=== PATIENT | male | born 1945 | race Caucasian/White ===

== ENCOUNTER 2018-05-23 22:03 | Inpatient (IN) | payer MEDICARE, OTHER, SELFPAY ==
[2018-05-23] VITALS (7 sets, daily range): BP systolic 145–182; BP diastolic 78–91; PULSE 70–87; RESP 16–22; TEMP 36.6; O2SAT 95–98; BMI 31.0
--- NOTE | 2018-05-23 22:08 | CT_ITS ---
STUDY: CTA OF THE BRAIN REASON FOR EXAM: Male, 73 years old. CVA. RADIATION DOSAGE (If Supplied By Facility): CTDIvol = ( ) mGy, DLP = ( ) mGycm TECHNIQUE: CT angiography was performed with a multi-detector CT scanner. Data acquisition was obtained from the skull base through the vertex following intravenous administration of ml of . MIP images were reconstructed from the axial data set. Post-processing of the angiographic images was performed, with multiplanar reformation and 3D reconstruction. Individualized dose optimization techniques were used for this CT. COMPARISON: None. FINDINGS: Normal bilateral petrous carotid arteries. Normal right cavernous carotid artery with a normal supraclinoid bifurcation. Normal left cavernous carotid artery with a normal supraclinoid bifurcation. Normal right A1 segments of the anterior cerebral artery. Normal left A1 segments of the anterior cerebral artery. Normal intact anterior communicating artery (ACOM). Normal bilateral A2 segments of the anterior cerebral arteries. Normal right M1 and M2 segments of the middle cerebral arteries, with a normal M1 bifurcation. Normal left M1 and M2 segments of the middle cerebral arteries, with a normal M1 bifurcation. There is a persistent origin of the right posterior cerebral artery with absence of the P1 segment of the right posterior cerebral artery. Hypoplastic or aplastic left posterior communicating artery. There is atherosclerotic calcification of the intracranial vertebral arteries. There is mild atherosclerotic narrowing bilaterally. Normal basilar artery with a normal basilar bifurcation. The visualized bilateral superior cerebellar (SCA) arteries are normal. Absent right P1 segment consistent with origin of the right [employer]. Normal bilateral P2 and visualized P3 segments of the posterior cerebral arteries. There is no demonstrated aneurysm of the [place]. There is opacification of the right maxillary sinus. CT/CTA Head W/WO Contrast IMPRESSION: Normal [place] of [place] without a demonstrated aneurysm or significant stenosis. Right maxillary sinusitis, uncertain chronicity. Electronically Signed: Kelsey Gutierrez MD at 23:26 EST Tel , Service support ,
--- NOTE | 2018-05-23 22:08 | CT_ITS ---
STUDY: CTA NECK WITH CONTRAST REASON FOR EXAM: Male, 73 years old. CVA. RADIATION DOSAGE (If Supplied By Facility): CTDIvol = ( 19.43 ) mGy, DLP = ( 763.31 ) mGycm TECHNIQUE: CT angiography with multi-detector data acquisition was performed from the aortic arch to the skull base following intravenous administration of 100 ml of Isovue 370 contrast. MIP images were reconstructed from the axial data set. Post-processing of the angiographic images was performed, with multiplanar reformation and 3D reconstruction. Individualized dose optimization techniques were used for this CT. COMPARISON: None. FINDINGS: AORTIC ARCH: Normal visualized aortic arch. Normal origins of the brachiocephalic, left common carotid, and left subclavian arteries. RIGHT CAROTID ARTERIES: Normal right common carotid artery (CCA). Normal right common carotid bulb. There is mild atherosclerotic plaque formation of the origin of the right internal carotid artery with no stenosis. Normal visualized cervical portion of the right internal carotid artery. Normal origin of the right external carotid artery (ECA). LEFT CAROTID ARTERIES: Normal left common carotid artery (CCA). Normal left common carotid bulb. Normal origin of the left internal carotid (ICA) artery without a hemodynamically significant stenosis. Normal visualized cervical portion of the left internal carotid artery. Normal origin of the left external carotid artery (ECA). VERTEBRAL ARTERIES: Normal bilateral vertebral arteries. Moderate degenerative changes of the cervical spine are noted. There is complete opacification of the right maxillary sinus. CT/CTA Neck W/WO Contrast IMPRESSION: Normal bilateral cervical carotid and vertebral arteries. Right maxillary sinusitis. Electronically Signed: Kelsey Gutierrez MD at 22:41 EST Tel , Service support ,
--- NOTE | 2018-05-23 22:09 | EKG12_ITS ---
Test Reason : WEAKNESS Blood Pressure : / mmHG Vent. Rate : 075 BPM Atrial Rate : 075 BPM P-R Int : 196 ms QRS Dur : 082 ms QT Int : 374 ms P-R-T Axes : -02 -27 039 degrees QTc Int : 417 ms Normal sinus rhythm Minimal voltage criteria for LVH, may be normal variant Septal infarct , age undetermined Abnormal ECG Confirmed by BINDU RICE, SAMIA ([id number]), online editor MODESTO MARQUES ([id number]) on 05/25/2018 8:43:44 AM Referred By: Sylwia Up Confirmed By:SAMIA RUANO MD
--- NOTE | 2018-05-23 22:09 | RAD_ITS ---
STUDY: X-RAY CHEST REASON FOR EXAM: Male, 73 years old. Weakness, SOB. TECHNIQUE: Portable chest. COMPARISON: None. FINDINGS: The lungs are clear and expanded. There is no demonstrated pleural abnormality. Normal size heart. Normal mediastinum and ibeth. Normal visualized pulmonary arteries. Normal visualized aortic arch and descending thoracic aorta. Normal visualized thoracic spine. Normal visualized ribs, clavicles, and shoulders. There is no demonstrated abnormality of the visualized soft tissue structures of the upper abdomen. RAD/Chest 1 View IMPRESSION: Normal x-ray examination of the chest. Electronically Signed: Kelsey Gutierrez MD at 22:58 EST Tel , Service support ,
--- NOTE | 2018-05-23 22:09 | CT_ITS ---
STUDY: CT BRAIN WITHOUT CONTRAST REASON FOR EXAM: Male, 73 years old. Stroke alert. RADIATION DOSAGE (If Supplied By Facility): CTDIvol = ( 44.99 ) mGy, DLP = ( 812.98 ) mGycm TECHNIQUE: Transaxial CT imaging of the brain was performed without administration of intravenous contrast material. Individualized dose optimization techniques were used for this CT. COMPARISON: None. FINDINGS: Normal soft tissue structures. Normal calvarium. There is moderate cerebral atrophy with widening of the extra-axial spaces and ventricular dilatation. There are areas of decreased attenuation within the white matter tracts of the supratentorial brain, consistent with microvascular disease changes. Normal basal ganglia and thalami. Normal brainstem. Normal cerebellum. There is no intracranial hemorrhage. There are no findings of an acute ischemic infarction. The right maxillary sinus is opacified. Remaining paranasal and mastoid sinuses are clear. CT/Brain/Head without Contrast IMPRESSION: 1. No acute process. 2. Microvascular ischemia. Atrophy. 3. Right maxillary sinusitis. Dr. Gutierrez discussed the findings with Dr. Chaney at 10:47 PM. N.B. : The above information has been verbally conveyed by Kelsey Gutierrez MD to Ruslan Chaney MD, MD, on 05/23/2018 22:47:33 (ET). Electronically Signed: Kelsey Gutierrez MD at 22:48 EST Tel , Service support ,
[2018-05-23 22:15] LABS: Bedside Glucose 285 mg/dL (70-110)
[2018-05-23] MEDS: 0.9% Normal Saline 1,000 ML 100 ML IV (22:20)
--- NOTE | 2018-05-23 22:40 | ED.RN ---
I CALLED [facility] EXT. 2007. THIS WET PROCESS TECHNICIAN ASKED FOR PERMISSION TO ADMIT THIS PT BECAUSE HE HAS [facility]. I TALKED TO JUNIOR AND SHE STATED THAT [facility] NOT [facility] ANY AVAILABLE BEDS SO WE HAVE HER PERMISSION TO ADMIT THIS PT TO [facility].
--- NOTE | 2018-05-23 22:57 | ED.DCSUM_ITS ---
- ER Visit Summary Date of Service: 05/23/18 Chief Complaint: [Left-sided facial droop] History of Present Illness: The patient is a 73 M [presents to the emergency department with complaint of left-sided facial droop that was noticed by family members about 25 minutes prior to arrival in the emergency department. Patient denies any extremity weakness. He denies any paresthesias. He denies any difficulty with speech. He denies any visual changes. Patient states that a couple days ago started having some drainage from his left eye and some blurred vision intermittently. He denies otherwise recent illness. Patient does have a history of diabetes. No prior history of stroke or cardiac history. Patient denies any headache. He denies any falls or head injuries.] Physical Examination: [HEENT-PERRLA, EOMI. Cranial nerves II through XII grossly intact. TMs clear. Mucous membranes moist. No adenopathy. Cardiovascular-regular rate and rhythm without murmur or ectopy Lungs-clear to auscultation, chest wall stable without crepitus or subcu emphysema Abdomen-normoactive bowel sounds, soft, nontender, no rebound or rigidity, no peritoneal signs. Neuro exam-patient does have a left-sided facial droop. Normal strength in the upper and lower extremities noted. Finger to nose and heel luna testing within normal limits. No pronator drift. No visual changes. NIH stroke scale was a 2. No sensory changes. Extremities-intact ?4, normal range of motion, normal pulses, atraumatic] Test Results: [CT scan of the brain without contrast showed chronic white matter changes. CTA of the neck was unremarkable. CBC with differential was unrema rkable. Chemistries unremarkable. Troponin was less than 0.015. CTA of the brain was unremarkable.] Emergency Department Course and Treatment: [Patient case was discussed with neurologist on-call and at this point he does not meet thrombolytic criteria. Will admit for further workup and evaluation of possible stroke. Also in the differential would be a Cruz's palsy potentially. I discussed case with patient's family member who eventually arrived in the emergency department and now she cannot be certain when the symptoms started but she believes it was sometime after 1800 hrs.] Treatment Plan: [Admit] Disposition: [Admit] Impression: [CVA Hyperglycemia] This note was generated with [employer]ation software. It may contain incorrect words, spelling, and punctuation that were not noted in review of the chart prior to signing ED Disposition - Plan for ED Patient: Chief Complaint: Neuro S/Sx [facility] [Primary Care Provider] -
[2018-05-23 23:00] LABS: Absolute Lymphocyte Count 2.48 X10^3/ul (0.83-4.51); Absolute Neutrophil Count 6.4 X10^3/uL (2.0-7.7); Basophil# 0.04 X10^3/uL; Basophil% 0.4 % (0-1); Eosinophil# 0.29 X10^3/uL; Eosinophils% 2.9 % (0-5); Hematocrit 40.5 % (40-54); Hemoglobin 13.3 g/dl (13.0-16.5); Lymphocyte # 2.48 X10^3/ul (4.0); Lymphocyte % 24.8 % (19-41); Mean Corp Hgb Conc 32.8 g/gl (32-36); Mean Corpuscular Hgb 28.7 pg (27.0-32.0); Mean Corpuscular Volume 87.5 fL (80-94); Mean Platelet Vol. 9.9 fl (6.2-12.0); Monocyte# 0.78 X10^3/uL; Monocyte% 7.8 % (0-10); Neutrophil # 6.39 X10^3/uL (2.7-7.7); Neutrophil % 63.8 % (47-70); POSITIVE COUNT NO; POSITIVE DIFFERENTIAL NO; POSITIVE MORPHOLOGY NO; Platelet Count 177 K/mm3 (150-450); RBC Distribution Width CV 13.1 % (11.6-14.6); RBC Distribution Width SD 41.6 fl (35.1-43.9); Red Blood Count 4.63 M/mm3 (4.6-6.2)
[2018-05-23 23:07] LABS: International Normalized Ratio 1.1; Partial Thromboplast Time 25.4 Seconds (24.1-36.2)
[2018-05-23 23:18] LABS: Anion Gap 7 (5-15); BUN 17 mg/dL (7-18); BUN/Creat Ratio 16.7 RATIO (10-20); Calcium,Total 8.3 mg/dL (8.5-10.1); Chloride 104 mmol/L (98-107); Creatinine, Serum 1.02 mg/dL (0.70-1.30); EST Glomerular Filtration Rate 77 mL/min (>60); Est Glom Filt Rate - Afr Amer 93 mL/min (>60); Estimated Creatinine Clearance 66.43 ml/min; Glucose 232 mg/dL (74-106); Potassium 3.9 mmol/L (3.5-5.1); Sodium Level 136 mmol/L (136-145)
--- NOTE | 2018-05-23 23:31 | PCM.HP.STD ---
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 Diabetes mellitus complication status: with unspecified complications Qualified Code(s): E11.8 - Type 2 diabetes mellitus with unspecified complications; 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 She notes she had performed his dressing around 6:30-7 pm and upon looking up did not noted any facial droop at that time thus the onset came after the dressing changes she notes. She did state that he did complaint of mild L eye irritation with some tearing starting ~ 2 days prior but there was no accompanying discharge or scleral redness. In the ED work-up included T 97.8, heart rate 72, BP initially 182/91, respiratory rate 16, 98% on room air-->BP 145/78, unremarkable CBC, unremarkable coags, unremarkable BMP aside glucose 232, troponin 0 0.019, chest x-ray unremarkable, CT brain with no acute process with microvascular ischemia, atrophy and right maxillary sinusitis of uncertain chronicity, CTA head within normal [place] without a demonstrated aneurysm or significant stenosis with right maxillary sinusitis of uncertain chronicity, CTA neck with normal bilateral cervical carotid and vertebral arteries with right maxillary sinusitis of uncertain chronicity. Past Medical History Past Medical History (Chronic Problems): Chronic Problems TRICIA (obstructive sleep apnea) (Chronic) Wound of foot (Chronic) Hyperlipidemia (Chronic) Diabetes mellitus, type 2 (Chronic) Benign essential hypertension (Chronic) Allergies No Known Allergies Allergy (Verified 05/23/18 23:01) Home Medications: Ambulatory Orders Medication Instructions Recorded Doxycycline [Vibramycin] 100 mg PO BID 05/23/18 Glipizide [Glipizide ER] 5 mg PO BID 05/23/18 Insulin Aspart [Novolog Flexpen 8 units SC TIDCM 05/23/18 ([facility])] Insulin NPH Human [Humulin N ([facility])] 18 units SC BID 05/23/18 Insulin Regular, Human [Novolin R] See Protocol IJ TIDCM 05/23/18 Lisinopril [Zestril] 5 mg PO DAILY 05/23/18 Metformin HCl 500 mg PO BID 05/23/18 Surgical History: - - Right foot surgery x2, initially TMA in 2004 and recent follow-up surgical intervention. Psychiatric History: Anxiety, Depression Lives: With Family - Patient is currently residing with his daughter following recent surgical intervention for the last several months per OR recommendation. Smoking Status: Never smoker Tobacco Use: Non-smoker Alcohol: None Drugs: None - *Family History Maternal History Items: Diabetes Paternal History Items: COPD Review of Systems Constitutional: Reports: Malaise, Weakness, Fatigue. Denies: Chills, Fever, Weight Change Eyes: Reports: - - L eye discomfort, irritation. HEENT: Denies: Head Aches, Sinus Congestion, Sinus Drainage Cardiovascular: Denies: Chest Pain, Palpitations Respiratory: Denies: Cough, Shortness of breath at rest, Sputum production Gastrointestinal: Denies: Abdominal Pain, Nausea, Vomiting Genitourinary: Denies: Dysuria Musculoskeletal: Denies: Joint Pain, Joint Tenderness Skin: Reports: Skin Changes, Wounds. Denies: Rash Neurological: Reports: Slurred speech, Focal weakness. Denies: Numbness, Tingling Psychiatric: Reports: Anxiety, Depression. Denies: Homicidal Ideations, Suicidal Ideations Hematologic/ Lymphatic: Denies: Easy Bruising, Easy Bleeding VTE Information - Inpt Only VTE Present on Admission: No VTE Mechan Device Prophylaxis: SCD's VTE Pharm Prophylaxis ordered?: Yes Patient Problems: Active and Suspected Problems CVA (cerebral vascular accident) (Acute) Subjective: Seated upright in the ED bed, no acute distress, daughter present and notes that left facial droop is similar to the initial onset appearance. Objective: Physical Examination: General: awake, alert, oriented x 3 and cooperative, seated upright in the ED bed in no apparent distress. Skin: normal color, turgor, no icterus, cyanosis except noted right foot chronic wound at the TMA region on the right lateral side with decent granulation tissue, no erythema, no foul odor. HEENT: AT/NC, EOMI, PERRLA, mildly dry MM, no carotid bruits or JVD noted, left-sided facial droop, inclusive of forehead. Lungs: CTA bilaterally, moderate effort, mild decrease BL bases, no rales, ronchi or wheezing. Heart: Regular rate and rhythm; no gallop, rub audible. Abdomen: soft, obese, NTTP, ND, normal BS, no HSM. Extremities: no cyanosis, clubbing, or edema. Neurological: patient awake, alert, oriented x 3; cognitive function intact; pupils equally reactive to light and accomodation; cranial nerves II-XII grossly normal, moving all 4 extremities, no focal deficits, strength preserved, mild tremor bilaterally which daughter notes is chronic, finger to nose and heel to luna normal bilaterally, negative Babinski, sensation intact. Psychiatric: affect appears normal, no acute evidence of depressive or anxiety feelings. - Physical Exam Vital Signs Temp Pulse Resp BP Pulse Ox 98 F 87 22 H 145/78 H 98 05/23/18 23:09 05/23/18 23:09 05/23/18 23:09 05/23/18 23:09 05/23/18 23:09 Oxygen Delivery Method Room Air Weight: 210 lb 1.608 oz Body Mass Index (BMI) 31.0 Finger Stick Blood Glucose 285 Laboratory Tests Past 24 Hrs 05/23/18 05/23/18 05/23/18 22:50 22:50 22:50 WBC 10.0 RBC 4.63 Hgb 13.3 Hct 40.5 MCV 87.5 MCH 28.7 MCHC 32.8 RDW 13.1 RDW Differential 41.6 Plt Count 177 MPV 9.9 Immature Gran % (Auto) 0.300 Neut % (Auto) 63.8 Lymph % (Auto) 24.8 Mckinley % (Auto) 7.8 Eos % (Auto) 2.9 Baso % (Auto) 0.4 Absolute Neuts (auto) 6.4 Absolute Lymphs (auto) 2.48 Total Counted Not Reportable PT 14.0 INR 1.1 APTT 25.4 Sodium 136 Potassium 3.9 Chloride 104 Carbon Dioxide 25.0 Anion Gap 7 BUN 17 Creatinine 1.02 Estim Creat Clear Calc 66.43 Est GFR (MDRD) Af Amer 93 Est GFR (MDRD) Non-Af 77 BUN/Creatinine Ratio 16.7 Glucose 232 H Calcium 8.3 L Troponin I 0.019 POC Glucose 05/23/18 22:07 POC Glucose 285 H Assessment/Plan All Active Problems CVA (cerebral vascular accident) (Acute) The patient is a 73 y/o M w/ PMHx: HTN, HLD, TRICIA, Anxiety and Depression, Diabetes mellitus type II, Obesity, Chronic R Foot Wound s/p TMA and follow-up debridement w/ ongoing wet-->dry dressings who presents to the [facility] ED on 05/23/18 with history of onset left facial droop and mild to moderate dysarthria starting possibly after 6:30-7 pm as last noted normal per daughter with following this noted changes w/ EMS call. (1) L sided facial droop, dysarthria concerning for CVA: ED work-up included T 97.8, heart rate 72, BP initially 182/91, respiratory rate 16, 98% on room air-->BP 145/78, unremarkable CBC, unremarkable coags, unremarkable BMP aside glucose 232, troponin 0 0.019, chest x-ray unremarkable, CT brain with no acute process with microvascular ischemia, atrophy and right maxillary sinusitis of uncertain chronicity, CTA head within normal [place] without a demonstrated aneurysm or significant stenosis with right maxillary sinusitis of uncertain chronicity, CTA neck with normal bilateral cervical carotid and vertebral arteries with right maxillary sinusitis of uncertain chronicity. Will admit to PCU, will obtain MRI Brain, ECHO, PT/OT/Speech/Nutrition evaluation per protocol. Will consult Neurology for evaluation. Will allow permissive HTN, maintain on asa, add high dose statin w/ AM FLP, fall precautions. Mag, TSH pending. (2) Diabetes mellitus type II: Hold oral home regimen, HgBA1c pending, continue home insulin regimen, ADA diet, accu checks w/ ISS, nutrition consultation for education and teaching. (3) Hypertension: We will continue permissive hypertension with IV as needed agents. (4) Hyperlipidemia: Add high dose statin, FLP in AM. (5) Anxiety and depression: Patient is not on regimen but does admit to anxiety and depression, [facility] (6) Chronic right foot wound: Patient is status post TMA, has had follow-up surgical debridement of this region, will continue wet-to-dry dressings, continue doxycycline regimen recently rx ~ 1 week prior for concern for cellulitis, wound RN consultation. (7) TRICIA: Continue CPAP nightly. Patient states he has not been using his CPAP machine at home secondary to concerns that there is debris in the tubing. Recommend case management involvement to assure equipment is assessed. (8) Obesity: Weight loss and lifestyle changes encouraged. (9) DVT prophylaxis: SCD, Lovenox. Code Visit Inpatient E&M: 35142 Init Hosp L3
--- NOTE | 2018-05-23 23:34 | ED.RN ---
NO SEPSIS RISK NOTED IN LAB WORK OR VS.
--- NOTE | 2018-05-23 23:35 | HP.PCM_ITS ---
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 Diabetes mellitus complication status: with unspecified complications Qualified Code(s): E11.8 - Type 2 diabetes mellitus with unspecified complications; 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 She notes she had performed his dressing around 6:30- 7 pm and upon looking up did not noted any facial droop at that time thus the onset came after the dressing changes she notes. She did state that he did complaint of mild L eye irritation with some tearing starting ~ 2 days prior but there was no accompanying discharge or scleral redness. In the ED work-up included T 97.8, heart rate 72, BP initially 182/91, respiratory rate 16, 98% on room air-->BP 145/78, unremarkable CBC, unremarkable coags, unremarkable BMP aside glucose 232, troponin 0 0.019, chest x-ray unremarkable, CT brain with no acute process with microvascular ischemia, atrophy and right maxillary sinusitis of uncertain chronicity, CTA head within normal [place] without a demonstrated aneurysm or significant stenosis with right maxillary sinusitis of uncertain chronicity, CTA neck with normal bilateral cervical carotid and vertebral arteries with right maxillary sinusitis of uncertain chronicity. Past Medical History Past Medical History (Chronic Problems): Chronic Problems TRICIA (obstructive sleep apnea) (Chronic) Wound of foot (Chronic) Hyperlipidemia (Chronic) Diabetes mellitus, type 2 (Chronic) Benign essential hypertension (Chronic) Allergies No Known Allergies Allergy (Verified 05/23/18 23:01) Home Medications: Ambulatory Orders Medication Instructions Recorded Doxycycline [Vibramycin] 100 mg PO BID 05/23/18 Glipizide [Glipizide ER] 5 mg PO BID 05/23/18 Insulin Aspart [Novolog Flexpen 8 units SC TIDCM 05/23/18 ([facility])] Insulin NPH Human [Humulin N ([facility])] 18 units SC BID 05/23/18 Insulin Regular, Human [Novolin R] See Protocol IJ TIDCM 05/23/18 Lisinopril [Zestril] 5 mg PO DAILY 05/23/18 Metformin HCl 500 mg PO BID 05/23/18 Surgical History: - - Right foot surgery x2, initially TMA in 2004 and recent follow-up surgical intervention. Psychiatric History: Anxiety, Depression Lives: With Family - Patient is currently residing with his daughter following recent surgical intervention for the last several months per OR recommendation. Smoking Status: Never smoker Tobacco Use: Non-smoker Alcohol: None Drugs: None - *Family History Maternal History Items: Diabetes Paternal History Items: COPD Review of Systems Constitutional: Reports: Malaise, Weakness, Fatigue. Denies: Chills, Fever, Weight Change Eyes: Reports: - - L eye discomfort, irritation. HEENT: Denies: Head Aches, Sinus Congestion, Sinus Drainage Cardiovascular: Denies: Chest Pain, Palpitations Respiratory: Denies: Cough, Shortness of breath at rest, Sputum production Gastrointestinal: Denies: Abdominal Pain, Nausea, Vomiting Genitourinary: Denies: Dysuria Musculoskeletal: Denies: Joint Pain, Joint Tenderness Skin: Reports: Skin Changes, Wounds. Denies: Rash Neurological: Reports: Slurred speech, Focal weakness. Denies: Numbness, Tingling Psychiatric: Reports: Anxiety, Depression. Denies: Homicidal Ideations, Suicidal Ideations Hematologic/ Lymphatic: Denies: Easy Bruising, Easy Bleeding VTE Information - Inpt Only VTE Present on Admission: No VTE Mechan Device Prophylaxis: SCD's VTE Pharm Prophylaxis ordered?: Yes Patient Problems: Active and Suspected Problems CVA (cerebral vascular accident) (Acute) Subjective: Seated upright in the ED bed, no acute distress, daughter present and notes that left facial droop is similar to the initial onset appearance. Objective: Physical Examination: General: awake, alert, oriented x 3 and cooperative, seated upright in the ED bed in no apparent distress. Skin: normal color, turgor, no icterus, cyanosis except noted right foot chronic wound at the TMA region on the right lateral side with decent granulation tissue, no erythema, no foul odor. HEENT: AT/NC, EOMI, PERRLA, mildly dry MM, no carotid bruits or JVD noted, left- sided facial droop, inclusive of forehead. Lungs: CTA bilaterally, moderate effort, mild decrease BL bases, no rales, ronchi or wheezing. Heart: Regular rate and rhythm; no gallop, rub audible. Abdomen: soft, obese, NTTP, ND, normal BS, no HSM. Extremities: no cyanosis, clubbing, or edema. Neurological: patient awake, alert, oriented x 3; cognitive function intact; pupils equally reactive to light and accomodation; cranial nerves II-XII grossly normal, moving all 4 extremities, no focal deficits, strength preserved, mild tremor bilaterally which daughter notes is chronic, finger to nose and heel to luna normal bilaterally, negative Babinski, sensation intact. Psychiatric: affect appears normal, no acute evidence of depressive or anxiety feelings. - Physical Exam Vital Signs Temp Pulse Resp BP Pulse Ox 98 F 87 22 H 145/78 H 98 05/23/18 23:09 05/23/18 23:09 05/23/18 23:09 05/23/18 23:09 05/23/18 23:09 Oxygen Delivery Method Room Air Weight: 210 lb 1.608 oz Body Mass Index (BMI) 31.0 Finger Stick Blood Glucose 285 Laboratory Tests Past 24 Hrs 05/23/18 05/23/18 05/23/18 22:50 22:50 22:50 WBC 10.0 RBC 4.63 Hgb 13.3 Hct 40.5 MCV 87.5 MCH 28.7 MCHC 32.8 RDW 13.1 RDW Differential 41.6 Plt Count 177 MPV 9.9 Immature Gran % (Auto) 0.300 Neut % (Auto) 63.8 Lymph % (Auto) 24.8 Bee % (Auto) 7.8 Eos % (Auto) 2.9 Baso % (Auto) 0.4 Absolute Neuts (auto) 6.4 Absolute Lymphs (auto) 2.48 Total Counted Not Reportable PT 14.0 INR 1.1 APTT 25.4 Sodium 136 Potassium 3.9 Chloride 104 Carbon Dioxide 25.0 Anion Gap 7 BUN 17 Creatinine 1.02 Estim Creat Clear Calc 66.43 Est GFR (MDRD) Af Amer 93 Est GFR (MDRD) Non-Af 77 BUN/Creatinine Ratio 16.7 Glucose 232 H Calcium 8.3 L Troponin I 0.019 POC Glucose 05/23/18 22:07 POC Glucose 285 H Assessment/Plan All Active Problems CVA (cerebral vascular accident) (Acute) The patient is a 73 y/o M w/ PMHx: HTN, HLD, TRICIA, Anxiety and Depression, Diabetes mellitus type II, Obesity, Chronic R Foot Wound s/p TMA and follow-up debridement w/ ongoing wet-->dry dressings who presents to the [facility] ED on 05/23/18 with history of onset left facial droop and mild to moderate dysarthria starting possibly after 6:30-7 pm as last noted normal per daughter with following this noted changes w/ EMS call. (1) L sided facial droop, dysarthria concerning for CVA: ED work-up included T 97.8, heart rate 72, BP initially 182/91, respiratory rate 16, 98% on room air-->BP 145/78, unremarkable CBC, unremarkable coags, unremarkable BMP aside glucose 232, troponin 0 0.019, chest x-ray unremarkable, CT brain with no acute process with microvascular ischemia, atrophy and right maxillary sinusitis of uncertain chronicity, CTA head within normal [place] without a demonstrated aneurysm or significant stenosis with right maxillary sinusitis of uncertain chronicity, CTA neck with normal bilateral cervical carotid and vertebral arteries with right maxillary sinusitis of uncertain chronicity. Will admit to PCU, will obtain MRI Brain, ECHO, PT/OT/Speech/Nutrition evaluation per protocol. Will consult Neurology for evaluation. Will allow permissive HTN, maintain on asa, add high dose statin w/ AM FLP, fall precautions. Mag, TSH pending. (2) Diabetes mellitus type II: Hold oral home regimen, HgBA1c pending, continue home insulin regimen, ADA diet, accu checks w/ ISS, nutrition consultation for education and teaching. (3) Hypertension: We will continue permissive hypertension with IV as needed agents. (4) Hyperlipidemia: Add high dose statin, FLP in AM. (5) Anxiety and depression: Patient is not on regimen but does admit to anxiety and depression, [facility] (6) Chronic right foot wound: Patient is status post TMA, has had follow-up surgical debridement of this region, will continue wet-to-dry dressings, continue doxycycline regimen recently rx ~ 1 week prior for concern for cellulitis, wound RN consultation. (7) TRICIA: Continue CPAP nightly. Patient states he has not been using his CPAP machine at home secondary to concerns that there is debris in the tubing. Recommend case management involvement to assure equipment is assessed. (8) Obesity: Weight loss and lifestyle changes encouraged. (9) DVT prophylaxis: SCD, Lovenox. Code Visit Inpatient E&M: 03457 Init Hosp L3
[2018-05-24] VITALS (16 sets, daily range): BP systolic 111–152; BP diastolic 54–86; PULSE 67–96; RESP 12–18; TEMP 36.6–36.7; O2SAT 95–99; BMI 28.4
--- NOTE | 2018-05-24 00:19 | MRI_ITS ---
STUDY: MRI BRAIN WITHOUT CONTRAST REASON FOR EXAM: Male, 73 years old. CVA TECHNIQUE: Standardized multiplanar fat and water weighted pulse sequences were obtained. COMPARISON: May 23, 2018 CT brain FINDINGS: No evidence for shift of midline structures, mass effect or compression of ventricles. No evidence for intracranial hemorrhage seen. The ventricular system appears unremarkable. The basal cisterns are patent. Posterior fossa structures demonstrate no discrete mass. Patchy and confluent foci of T2/FLAIR hyperintensity in the periventricular and subcortical white matter which are nonspecific in imaging appearance however likely related with chronic small vessel disease. Chronic small vessel disease of the brain stem also seen. Pituitary stalk and optic chiasm are within normal limits. Corpus callosum demonstrates no significant atrophy. Age-related involutional changes. Complete opacification of the right maxillary sinus and partial opacification of the ethmoid air cells. Please consider direct visual inspection. Sinusitis is a diagnostic consideration. IMPRESSION: No evidence for acute or subacute ischemic insult. No evidence for intracranial mass. No evidence for acute intracranial hemorrhage. Chronic small vessel disease. Complete opacification of the right maxillary sinus and partial opacification of the ethmoid air cells. Please consider direct visual inspection. Sinusitis is a diagnostic consideration. Electronically Signed: Valerio Schultz, at 12:56 EST Tel , Service support , MRI/Brain without Contrast
--- NOTE | 2018-05-24 00:21 | ECHOCS_ITS ---
Reason For Study: CVA Procedure This was a 2D Doppler, Color Flow transthoracic echocardiogram. Contrast injection was performed. Exam performed portable in patient room. Left Ventricle Normal LV size. Left ventricular systolic function is normal. The estimated ejection fraction is 55 %. Stage 1 diastolic dysfunction. No regional wall motion abnormalities noted. Right Ventricle Normal RV size. Normal systolic function. Atria Normal left atrium. Normal right atrium. Mitral Valve Normal mitral valve. Tricuspid Valve Normal tricuspid valve. Aortic Valve Normal aortic valve. Trisinus/trileaflet aortic valve. Pulmonic Valve Normal pulmonic valve. Great Vessels Normal aortic root. The pulmonary artery is normal size. Normal inferior vena cava. Pericardium/Pleural No pericardial effusion. Medication Performed a rapid injection of agitated mix of 9 cc saline and 1cc air to assess for atrial septal defect. Definity0.3ml given slow IV push to enhance endocardial definition. MMode/2D Measurements & Calculations LVIDd: 4.9 cm IVSd: 1.2 cm Ao root diam: 3.2 cm LVIDs: 3.7 cm LVPWd: 1.0 cm RVDd: 3.6 cm FS: 24.8 % LAV(MOD-bp): 46.0 ml LVAd ap4: 28.8 cm2 SV(MOD-sp4): 43.3 ml LAV(MOD-bp) Indexed: 21.8 ml/m2 EDV(MOD-sp4): 84.9 ml LAV(MOD-sp2): 41.9 ml EDV(sp4-el): 87.1 ml LAV(MOD-sp4): 44.4 ml LVAs ap4: 19.0 cm2 ESV(MOD-sp4): 41.7 ml ESV(sp4-el): 43.5 ml EF(MOD-sp4): 50.9 % EF(sp4-el): 50.0 % SV(sp4-el): 43.5 ml LA A4 area: 17.5 cm2 LA dimension(2D): 3.8 cm RA A4 area: 13.0 cm2 Doppler Measurements & Calculations MV E max chance: 73.5 cm/sec Lat Peak E' Chance: 7.8 cm/sec Med Peak E' Chance: 7.4 cm/sec MV A max chance: 95.0 cm/sec E/E' lat: 9.4 E/E' med: 10.0 MV E/A: 0.77 Ao V2 max: 125.5 cm/sec LV V1 max: 99.8 cm/sec PA V2 max: 128.1 cm/sec Ao max P.3 mmHg LV V1 max P.0 mmHg Ao V2 mean: 94.2 cm/sec Ao mean P.8 mmHg Ao V2 VTI: 25.5 cm Interpretation Summary Normal LV size. Left ventricular systolic function is normal. The estimated ejection fraction is 55 %. Stage 1 diastolic dysfunction. Contrast injection was performed. Ordering Physician: Sylwia Up Referring Physician: [facility] Performed By: Sarita Kurtz, PAVAN, RVT
[2018-05-24 00:51] LABS: Magnesium 1.8 mg/dL (1.6-2.6); Thyroid Stim Hormone (TSH) 2.79 uIU/mL (0.358-3.74)
[2018-05-24] MEDS: 0.9% Normal Saline 1,000 ML 100 ML IV (01:01)
[2018-05-24 01:08] LABS: Hemoglobin A1c 9.1 % (4.2-6.3)
[2018-05-24] MEDS: Collagenase 30gm Tube 1 APPLIC TOPICAL (02:22)
[2018-05-24 06:21] LABS: Absolute Lymphocyte Count 3.17 X10^3/ul (0.83-4.51); Absolute Neutrophil Count 5.7 X10^3/uL (2.0-7.7); Basophil# 0.03 X10^3/uL; Basophil% 0.3 % (0-1); Eosinophil# 0.42 X10^3/uL; Eosinophils% 4.1 % (0-5); Hematocrit 36.8 % (40-54); Hemoglobin 12.1 g/dl (13.0-16.5); Lymphocyte # 3.17 X10^3/ul (4.0); Lymphocyte % 30.6 % (19-41); Mean Corp Hgb Conc 32.9 g/gl (32-36); Mean Corpuscular Hgb 28.7 pg (27.0-32.0); Mean Corpuscular Volume 87.2 fL (80-94); Mean Platelet Vol. 9.9 fl (6.2-12.0); Monocyte# 1.02 X10^3/uL; Monocyte% 9.9 % (0-10); Platelet Count 213 K/mm3 (150-450); RBC Distribution Width CV 13.2 % (11.6-14.6); RBC Distribution Width SD 41.9 fl (35.1-43.9); Red Blood Count 4.22 M/mm3 (4.6-6.2); White Blood Count 10.4 K/mm3 (4.4-11.0)
[2018-05-24 06:23] LABS: POSITIVE COUNT NO; POSITIVE DIFFERENTIAL NO; POSITIVE MORPHOLOGY NO
[2018-05-24 06:32] LABS: Anion Gap 9 (5-15); BUN 13 mg/dL (7-18); BUN/Creat Ratio 15.4 RATIO (10-20); Chloride 109 mmol/L (98-107); Cholesterol 122 mg/dL (200); Creatinine, Serum 0.84 mg/dL (0.70-1.30); EST Glomerular Filtration Rate 95 mL/min (>60); Est Glom Filt Rate - Afr Amer 115 mL/min (>60); Estimated Creatinine Clearance 80.66 ml/min; Glucose 123 mg/dL (74-106); High Density Lipoprotein 35 mg/dL; Potassium 3.7 mmol/L (3.5-5.1); Sodium Level 142 mmol/L (136-145); Triglycerides 128 mg/dL; Very Low Density Lipoprotein 26 mg/dL (5-40)
[2018-05-24 06:56] LABS: Bedside Glucose 123 mg/dL (70-110)
[2018-05-24] MEDS: Insulin Lispro 100 UNIT/ML INSULN.PEN 8 UNIT SC ×2 (08:53→11:16)
[2018-05-24] MEDS: Glucerna Shake 120 ML LIQUID PO ×3 (08:53→16:41)
[2018-05-24] MEDS: Insulin NPH Human 100 UNITS/ML PEN 18 UNITS SC (08:53)
[2018-05-24] MEDS: Doxycycline 100 MG CAPSULE PO ×2 (08:54→21:46)
[2018-05-24] MEDS: Famotidine 20 MG Tablet PO ×2 (08:54→21:46)
[2018-05-24] MEDS: Aspirin 81 MG TAB.CHEW PO (08:54)
[2018-05-24] MEDS: Enoxaparin 40 MG/0.4 ML Syringe SC (08:54)
[2018-05-24 11:11] LABS: Bedside Glucose 239 mg/dL (70-110)
[2018-05-24] MEDS: Insulin Lispro 100 UNIT/ML INSULN.PEN SC ×3 (11:15→21:45)
--- NOTE | 2018-05-24 12:12 | PCM.PROGNOTE ---
<Quiana Hanna - Last Filed: 05/24/18 12:23> Patient Problems: Active and Suspected Problems CVA (cerebral vascular accident) (Acute) Subjective: Patient seen and examined. Continues to have significant left-sided facial droop. Denies other neurological symptoms. - Physical Exam General: Alert, Oriented x3, Cooperative HEENT: Atraumatic, PERRLA, EOMI, Normocephalic Oral: Moist Mucosa Neck: Supple, No JVD, Negative Carotid Bruits Lungs: Clear to auscultation, Normal air movement Cardiovascular: Regular rate, Regular Rhythm, Normal S1, Normal S2, No murmurs Abdomen: Bowel Sounds Present, Soft, Non Tender, Non-Distended, Obese Extremities: No clubbing, No cyanosis, No edema, Capillary Refill Less than 3 Seconds Skin: No rashes, No breakdown, - - Right foot chronic wound, status post TMA. Dressing clean dry and intact. Musculoskeletal: No Tenderness to Palpation of Joints or Extremities Neurological: Cranial nerves II-XII grossly intact, - - Left-sided facial droop. Psych/Mental Status: Normal Affect, Appropriate Vital Signs Temp Pulse Resp BP Pulse Ox 98.0 F 81 14 146/86 H 97 05/24/18 09:02 05/24/18 11:00 05/24/18 09:02 05/24/18 09:02 05/24/18 09:02 Oxygen Delivery Method Room Air Weight: 192 lb 7.417 oz Body Mass Index (BMI) 28.4 Finger Stick Blood Glucose 285 Intake and Output for Last 24 Hours 05/22/18 05/23/18 05/24/18 23:59 23:59 23:59 Intake Total 1394 / 1394 Output Total 1825 / 1825 Balance -431 / -431 Laboratory Tests Past 24 Hrs 05/23/18 05/23/18 05/23/18 22:50 22:50 22:50 WBC 10.0 RBC 4.63 Hgb 13.3 Hct 40.5 MCV 87.5 MCH 28.7 MCHC 32.8 RDW 13.1 RDW Differential 41.6 Plt Count 177 MPV 9.9 Immature Gran % (Auto) 0.300 Neut % (Auto) 63.8 Lymph % (Auto) 24.8 [place] % (Auto) 7.8 Eos % (Auto) 2.9 Baso % (Auto) 0.4 Absolute Neuts (auto) 6.4 Absolute Lymphs (auto) 2.48 Total Counted Not Reportable PT 14.0 INR 1.1 APTT 25.4 Sodium 136 Potassium 3.9 Chloride 104 Carbon Dioxide 25.0 Anion Gap 7 BUN 17 Creatinine 1.02 Estim Creat Clear Calc 66.43 Est GFR (MDRD) Af Amer 93 Est GFR (MDRD) Non-Af 77 BUN/Creatinine Ratio 16.7 Glucose 232 H Hemoglobin A1c Calcium 8.3 L Magnesium Troponin I 0.019 Triglycerides Cholesterol LDL Cholesterol VLDL Cholesterol HDL Cholesterol TSH 05/23/18 05/23/18 05/24/18 22:50 22:50 05:15 WBC 10.4 RBC 4.22 L Hgb 12.1 L Hct 36.8 L MCV 87.2 MCH 28.7 MCHC 32.9 RDW 13.2 RDW Differential 41.9 Plt Count 213 MPV 9.9 Immature Gran % (Auto) 0.100 Neut % (Auto) 55.0 Lymph % (Auto) 30.6 [place] % (Auto) 9.9 Eos % (Auto) 4.1 Baso % (Auto) 0.3 Absolute Neuts (auto) 5.7 Absolute Lymphs (auto) 3.17 Total Counted Not Reportable PT INR APTT Sodium Potassium Chloride Carbon Dioxide Anion Gap BUN Creatinine Estim Creat Clear Calc Est GFR (MDRD) Af Amer Est GFR (MDRD) Non-Af BUN/Creatinine Ratio Glucose Hemoglobin A1c 9.1 H Calcium Magnesium 1.8 Troponin I Triglycerides Cholesterol LDL Cholesterol VLDL Cholesterol HDL Cholesterol TSH 2.79 05/24/18 05:15 WBC RBC Hgb Hct MCV MCH MCHC RDW RDW Differential Plt Count MPV Immature Gran % (Auto) Neut % (Auto) Lymph % (Auto) [place] % (Auto) Eos % (Auto) Baso % (Auto) Absolute Neuts (auto) Absolute Lymphs (auto) Total Counted PT INR APTT Sodium 142 Potassium 3.7 Chloride 109 H Carbon Dioxide 24.0 Anion Gap 9 BUN 13 Creatinine 0.84 Estim Creat Clear Calc 80.66 Est GFR (MDRD) Af Amer 115 Est GFR (MDRD) Non-Af 95 BUN/Creatinine Ratio 15.4 Glucose 123 H Hemoglobin A1c Calcium 8.0 L Magnesium Troponin I Triglycerides 128 Cholesterol 122 LDL Cholesterol 61 VLDL Cholesterol 26 HDL Cholesterol 35 L TSH POC Glucose 05/24/18 05/24/18 05/23/18 10:55 06:47 22:07 POC Glucose 239 H 123 H 285 H Medical Necessity - Tobacco Use Smoking Status: Never smoker Tobacco Use: Non-smoker Assessment/Plan All Active Problems CVA (cerebral vascular accident) (Acute) 1. Suspected CVA, left-sided facial droop-CT of brain on admission with no acute process. CT of head with normal [place], no significant stenosis. CT of neck with normal bilateral cervical carotid and vertebral arteries. MRI of brain pending. Echo pending. Neurology consulted. Continue aspirin, statin. PT/OT/ST. 2. Type 2 diabetes mellitus, poorly controlled-hemoglobin A1c 9.1%. Hold oral regimen. Accu-Cheks AC at bedtime with sliding scale insulin. Continue home insulin regimen. 3. 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 Continue wet-to-dry dressings. 4. Hypertension-permissive given #1. 5. TRICIA-continue CPAP nightly. 6. Anxiety/depression-not on regimen. Encouraged outpatient follow-up. 7. Obesity-encouraged diet lifestyle modification. DVT prophylaxis-SCDs, Lovenox. This patient was seen by ABDIRIZAK Aranda under the supervision of Dr. Holbrook. <Huang Holbrook - Last Filed: 05/24/18 12:59> - Physical Exam Vital Signs Temp Pulse Resp BP Pulse Ox 98.0 F 81 14 146/86 H 97 05/24/18 09:02 05/24/18 11:00 05/24/18 09:02 05/24/18 09:02 05/24/18 09:02 Oxygen Delivery Method Room Air Weight: 87.3 kg Body Mass Index (BMI) 28.4 Finger Stick Blood Glucose 285 Intake and Output for Last 24 Hours 05/22/18 05/23/18 05/24/18 23:59 23:59 23:59 Intake Total 1394 / 1394 Output Total 1825 / 1825 Balance -431 / -431 Laboratory Tests Past 24 Hrs 05/23/18 05/23/18 05/23/18 22:50 22:50 22:50 WBC 10.0 RBC 4.63 Hgb 13.3 Hct 40.5 MCV 87.5 MCH 28.7 MCHC 32.8 RDW 13.1 RDW Differential 41.6 Plt Count 177 MPV 9.9 Immature Gran % (Auto) 0.300 Neut % (Auto) 63.8 Lymph % (Auto) 24.8 [place] % (Auto) 7.8 Eos % (Auto) 2.9 Baso % (Auto) 0.4 Absolute Neuts (auto) 6.4 Absolute Lymphs (auto) 2.48 Total Counted Not Reportable PT 14.0 INR 1.1 APTT 25.4 Sodium 136 Potassium 3.9 Chloride 104 Carbon Dioxide 25.0 Anion Gap 7 BUN 17 Creatinine 1.02 Estim Creat Clear Calc 66.43 Est GFR (MDRD) Af Amer 93 Est GFR (MDRD) Non-Af 77 BUN/Creatinine Ratio 16.7 Glucose 232 H Hemoglobin A1c Calcium 8.3 L Magnesium Troponin I 0.019 Triglycerides Cholesterol LDL Cholesterol VLDL Cholesterol HDL Cholesterol TSH 05/23/18 05/23/18 05/24/18 22:50 22:50 05:15 WBC 10.4 RBC 4.22 L Hgb 12.1 L Hct 36.8 L MCV 87.2 MCH 28.7 MCHC 32.9 RDW 13.2 RDW Differential 41.9 Plt Count 213 MPV 9.9 Immature Gran % (Auto) 0.100 Neut % (Auto) 55.0 Lymph % (Auto) 30.6 [place] % (Auto) 9.9 Eos % (Auto) 4.1 Baso % (Auto) 0.3 Absolute Neuts (auto) 5.7 Absolute Lymphs (auto) 3.17 Total Counted Not Reportable PT INR APTT Sodium Potassium Chloride Carbon Dioxide Anion Gap BUN Creatinine Estim Creat Clear Calc Est GFR (MDRD) Af Amer Est GFR (MDRD) Non-Af BUN/Creatinine Ratio Glucose Hemoglobin A1c 9.1 H Calcium Magnesium 1.8 Troponin I Triglycerides Cholesterol LDL Cholesterol VLDL Cholesterol HDL Cholesterol TSH 2.79 05/24/18 05:15 WBC RBC Hgb Hct MCV MCH MCHC RDW RDW Differential Plt Count MPV Immature Gran % (Auto) Neut % (Auto) Lymph % (Auto) [place] % (Auto) Eos % (Auto) Baso % (Auto) Absolute Neuts (auto) Absolute Lymphs (auto) Total Counted PT INR APTT Sodium 142 Potassium 3.7 Chloride 109 H Carbon Dioxide 24.0 Anion Gap 9 BUN 13 Creatinine 0.84 Estim Creat Clear Calc 80.66 Est GFR (MDRD) Af Amer 115 Est GFR (MDRD) Non-Af 95 BUN/Creatinine Ratio 15.4 Glucose 123 H Hemoglobin A1c Calcium 8.0 L Magnesium Troponin I Triglycerides 128 Cholesterol 122 LDL Cholesterol 61 VLDL Cholesterol 26 HDL Cholesterol 35 L TSH POC Glucose 05/24/18 05/24/18 05/23/18 10:55 06:47 22:07 POC Glucose 239 H 123 H 285 H Assessment/Plan This patient was seen in conjunction with ABDIRIZAK Aranda . I have independently interviewed and examined the patient and reviewed pertinent historical, laboratory, and other data. Please refer to ABDIRIZAK Aranda note for details of this patient's presentation, findings, and recommendations. I have reviewed ABDIRIZAK Aranda note and concur with documented findings. In brief, patient is a 73-year-old male admitted with dysarthria and right facial droop Physical Examination: GENERAL: cooperative HEENT: Atraumatic; EYES; Anicteric, Normal Conjunctiva NECK; supple, normal thyroid, distended JVD. RESPIRATORY: Diminished to auscultation bilaterally, CARDIOVASCULAR: Regular S1 S2, no audible murmurs GI: soft, non-tender, normoactive bowel sounds, : No Renal angle tenderness; NEURO: Awake; left facial droop SKIN: As described above PSYCH; flat affect Assessment: 1. Left facial droop; differential diagnosis acute CVA versus Cruz's palsy 2. Diabetes mellitus type II 3. Essential hypertension 4. Depression with anxiety 5. Obstructive sleep apnea 6. DVT prophylaxis SC Lovenox Clinical Impression(s) from Imaging Studies Head CTA 05/23/18 22:08 IMPRESSION: Normal [place] without a demonstrated aneurysm or significant stenosis. Right maxillary sinusitis, uncertain chronicity. Electronically Signed: Kelsey Gutierrez MD at 23:26 EST Tel , Service support , Neck CTA 05/23/18 22:08 IMPRESSION: Normal bilateral cervical carotid and vertebral arteries. Right maxillary sinusitis. Electronically Signed: Kelsey Gutierrez MD at 22:41 EST Tel , Service support , Brain CT 05/23/18 22:09 IMPRESSION: 1. No acute process. 2. Microvascular ischemia. Atrophy. 3. Right maxillary sinusitis. Dr. Gutierrez discussed the findings with Dr. Chaney at 10:47 PM. N.B. : The above information has been verbally conveyed by Kelsey Gutierrez MD to Ruslan Chaney MD, MD, on 05/23/2018 22:47:33 (ET). Electronically Signed: Kelsey Gutierrez MD at 22:48 EST Tel , Service support , Chest X-Ray 05/23/18 22:09 IMPRESSION: Normal x-ray examination of the chest. Electronically Signed: Kelsey Gutierrez MD at 22:58 EST Tel , Service support , Code Visit Inpatient E&M: 82524 Subs Hosp L3
--- NOTE | 2018-05-24 12:16 | PN_ITS ---
Addendum entered and electronically signed by ABDIRIZAK Aranda 05/24/18 13:11: Code Visit MRI of brain without acute infarct. CVA ruled out. 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 Begin prednisone 60 mg daily and acyclovir 400 mg 5 times daily. Will need tighter glucose control with addition of steroids. Original Note: <Quiana Hanna - Last Filed: 05/24/18 12:23> Patient Problems: Active and Suspected Problems CVA (cerebral vascular accident) (Acute) Subjective: Patient seen and examined. Continues to have significant left-sided facial droop. Denies other neurological symptoms. - Physical Exam General: Alert, Oriented x3, Cooperative HEENT: Atraumatic, PERRLA, EOMI, Normocephalic Oral: Moist Mucosa Neck: Supple, No JVD, Negative Carotid Bruits Lungs: Clear to auscultation, Normal air movement Cardiovascular: Regular rate, Regular Rhythm, Normal S1, Normal S2, No murmurs Abdomen: Bowel Sounds Present, Soft, Non Tender, Non-Distended, Obese Extremities: No clubbing, No cyanosis, No edema, Capillary Refill Less than 3 Seconds Skin: No rashes, No breakdown, - - Right foot chronic wound, status post TMA. Dressing clean dry and intact. Musculoskeletal: No Tenderness to Palpation of Joints or Extremities Neurological: Cranial nerves II-XII grossly intact, - - Left-sided facial droop. Psych/Mental Status: Normal Affect, Appropriate Vital Signs Temp Pulse Resp BP Pulse Ox 98.0 F 81 14 146/86 H 97 05/24/18 09:02 05/24/18 11:00 05/24/18 09:02 05/24/18 09:02 05/24/18 09:02 Oxygen Delivery Method Room Air Weight: 192 lb 7.417 oz Body Mass Index (BMI) 28.4 Finger Stick Blood Glucose 285 Intake and Output for Last 24 Hours 05/22/18 05/23/18 05/24/18 23:59 23:59 23:59 Intake Total 1394 / 1394 Output Total 1825 / 1825 Balance -431 / -431 Laboratory Tests Past 24 Hrs 05/23/18 05/23/18 05/23/18 22:50 22:50 22:50 WBC 10.0 RBC 4.63 Hgb 13.3 Hct 40.5 MCV 87.5 MCH 28.7 MCHC 32.8 RDW 13.1 RDW Differential 41.6 Plt Count 177 MPV 9.9 Immature Gran % (Auto) 0.300 Neut % (Auto) 63.8 Lymph % (Auto) 24.8 [place] % (Auto) 7.8 Eos % (Auto) 2.9 Baso % (Auto) 0.4 Absolute Neuts (auto) 6.4 Absolute Lymphs (auto) 2.48 Total Counted Not Reportable PT 14.0 INR 1.1 APTT 25.4 Sodium 136 Potassium 3.9 Chloride 104 Carbon Dioxide 25.0 Anion Gap 7 BUN 17 Creatinine 1.02 Estim Creat Clear Calc 66.43 Est GFR (MDRD) Af Amer 93 Est GFR (MDRD) Non-Af 77 BUN/Creatinine Ratio 16.7 Glucose 232 H Hemoglobin A1c Calcium 8.3 L Magnesium Troponin I 0.019 Triglycerides Cholesterol LDL Cholesterol VLDL Cholesterol HDL Cholesterol TSH 05/23/18 05/23/18 05/24/18 22:50 22:50 05:15 WBC 10.4 RBC 4.22 L Hgb 12.1 L Hct 36.8 L MCV 87.2 MCH 28.7 MCHC 32.9 RDW 13.2 RDW Differential 41.9 Plt Count 213 MPV 9.9 Immature Gran % (Auto) 0.100 Neut % (Auto) 55.0 Lymph % (Auto) 30.6 [place] % (Auto) 9.9 Eos % (Auto) 4.1 Baso % (Auto) 0.3 Absolute Neuts (auto) 5.7 Absolute Lymphs (auto) 3.17 Total Counted Not Reportable PT INR APTT Sodium Potassium Chloride Carbon Dioxide Anion Gap BUN Creatinine Estim Creat Clear Calc Est GFR (MDRD) Af Amer Est GFR (MDRD) Non-Af BUN/Creatinine Ratio Glucose Hemoglobin A1c 9.1 H Calcium Magnesium 1.8 Troponin I Triglycerides Cholesterol LDL Cholesterol VLDL Cholesterol HDL Cholesterol TSH 2.79 05/24/18 05:15 WBC RBC Hgb Hct MCV MCH MCHC RDW RDW Differential Plt Count MPV Immature Gran % (Auto) Neut % (Auto) Lymph % (Auto) [place] % (Auto) Eos % (Auto) Baso % (Auto) Absolute Neuts (auto) Absolute Lymphs (auto) Total Counted PT INR APTT Sodium 142 Potassium 3.7 Chloride 109 H Carbon Dioxide 24.0 Anion Gap 9 BUN 13 Creatinine 0.84 Estim Creat Clear Calc 80.66 Est GFR (MDRD) Af Amer 115 Est GFR (MDRD) Non-Af 95 BUN/Creatinine Ratio 15.4 Glucose 123 H Hemoglobin A1c Calcium 8.0 L Magnesium Troponin I Triglycerides 128 Cholesterol 122 LDL Cholesterol 61 VLDL Cholesterol 26 HDL Cholesterol 35 L TSH POC Glucose 05/24/18 05/24/18 05/23/18 10:55 06:47 22:07 POC Glucose 239 H 123 H 285 H Medical Necessity - Tobacco Use Smoking Status: Never smoker Tobacco Use: Non-smoker Assessment/Plan All Active Problems CVA (cerebral vascular accident) (Acute) 1. Suspected CVA, left-sided facial droop-CT of brain on admission with no acute process. CT of head with normal [place], no significant stenosis. CT of neck with normal bilateral cervical carotid and vertebral arteries. MRI of brain pending. Echo pending. Neurology consulted. Continue aspirin, statin. PT/OT/ST. 2. Type 2 diabetes mellitus, poorly controlled-hemoglobin A1c 9.1%. Hold oral regimen. Accu-Cheks AC at bedtime with sliding scale insulin. Continue home insulin regimen. 3. 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 Continue wet-to-dry dressings. 4. Hypertension-permissive given #1. 5. TRICIA-continue CPAP nightly. 6. Anxiety/depression-not on regimen. Encouraged outpatient follow-up. 7. Obesity-encouraged diet lifestyle modification. DVT prophylaxis-SCDs, Lovenox. This patient was seen by ABDIRIZAK Aranda under the supervision of Dr. Holbrook. <Huang Holbrook - Last Filed: 05/24/18 12:59> - Physical Exam Vital Signs Temp Pulse Resp BP Pulse Ox 98.0 F 81 14 146/86 H 97 05/24/18 09:02 05/24/18 11:00 05/24/18 09:02 05/24/18 09:02 05/24/18 09:02 Oxygen Delivery Method Room Air Weight: 87.3 kg Body Mass Index (BMI) 28.4 Finger Stick Blood Glucose 285 Intake and Output for Last 24 Hours 05/22/18 05/23/18 05/24/18 23:59 23:59 23:59 Intake Total 1394 / 1394 Output Total 1825 / 1825 Balance -431 / -431 Laboratory Tests Past 24 Hrs 05/23/18 05/23/18 05/23/18 22:50 22:50 22:50 WBC 10.0 RBC 4.63 Hgb 13.3 Hct 40.5 MCV 87.5 MCH 28.7 MCHC 32.8 RDW 13.1 RDW Differential 41.6 Plt Count 177 MPV 9.9 Immature Gran % (Auto) 0.300 Neut % (Auto) 63.8 Lymph % (Auto) 24.8 [place] % (Auto) 7.8 Eos % (Auto) 2.9 Baso % (Auto) 0.4 Absolute Neuts (auto) 6.4 Absolute Lymphs (auto) 2.48 Total Counted Not Reportable PT 14.0 INR 1.1 APTT 25.4 Sodium 136 Potassium 3.9 Chloride 104 Carbon Dioxide 25.0 Anion Gap 7 BUN 17 Creatinine 1.02 Estim Creat Clear Calc 66.43 Est GFR (MDRD) Af Amer 93 Est GFR (MDRD) Non-Af 77 BUN/Creatinine Ratio 16.7 Glucose 232 H Hemoglobin A1c Calcium 8.3 L Magnesium Troponin I 0.019 Triglycerides Cholesterol LDL Cholesterol VLDL Cholesterol HDL Cholesterol TSH 05/23/18 05/23/18 05/24/18 22:50 22:50 05:15 WBC 10.4 RBC 4.22 L Hgb 12.1 L Hct 36.8 L MCV 87.2 MCH 28.7 MCHC 32.9 RDW 13.2 RDW Differential 41.9 Plt Count 213 MPV 9.9 Immature Gran % (Auto) 0.100 Neut % (Auto) 55.0 Lymph % (Auto) 30.6 [place] % (Auto) 9.9 Eos % (Auto) 4.1 Baso % (Auto) 0.3 Absolute Neuts (auto) 5.7 Absolute Lymphs (auto) 3.17 Total Counted Not Reportable PT INR APTT Sodium Potassium Chloride Carbon Dioxide Anion Gap BUN Creatinine Estim Creat Clear Calc Est GFR (MDRD) Af Amer Est GFR (MDRD) Non-Af BUN/Creatinine Ratio Glucose Hemoglobin A1c 9.1 H Calcium Magnesium 1.8 Troponin I Triglycerides Cholesterol LDL Cholesterol VLDL Cholesterol HDL Cholesterol TSH 2.79 05/24/18 05:15 WBC RBC Hgb Hct MCV MCH MCHC RDW RDW Differential Plt Count MPV Immature Gran % (Auto) Neut % (Auto) Lymph % (Auto) [place] % (Auto) Eos % (Auto) Baso % (Auto) Absolute Neuts (auto) Absolute Lymphs (auto) Total Counted PT INR APTT Sodium 142 Potassium 3.7 Chloride 109 H Carbon Dioxide 24.0 Anion Gap 9 BUN 13 Creatinine 0.84 Estim Creat Clear Calc 80.66 Est GFR (MDRD) Af Amer 115 Est GFR (MDRD) Non-Af 95 BUN/Creatinine Ratio 15.4 Glucose 123 H Hemoglobin A1c Calcium 8.0 L Magnesium Troponin I Triglycerides 128 Cholesterol 122 LDL Cholesterol 61 VLDL Cholesterol 26 HDL Cholesterol 35 L TSH POC Glucose 05/24/18 05/24/18 05/23/18 10:55 06:47 22:07 POC Glucose 239 H 123 H 285 H Assessment/Plan This patient was seen in conjunction with ABDIRIZAK Aranda . I have independently interviewed and examined the patient and reviewed pertinent historical, laboratory, and other data. Please refer to ABDIRIZAK Aranda note for details of this patient's presentation, findings, and recommendations. I have reviewed ABDIRIZAK Aranda note and concur with documented findi ngs. In brief, patient is a 73-year-old male admitted with dysarthria and right facial droop Physical Examination: GENERAL: cooperative HEENT: Atraumatic; EYES; Anicteric, Normal Conjunctiva NECK; supple, normal thyroid, distended JVD. RESPIRATORY: Diminished to auscultation bilaterally, CARDIOVASCULAR: Regular S1 S2, no audible murmurs GI: soft, non-tender, normoactive bowel sounds, : No Renal angle tenderness; NEURO: Awake; left facial droop SKIN: As described above PSYCH; flat affect Assessment: 1. Left facial droop; differential diagnosis acute CVA versus Cruz's palsy 2. Diabetes mellitus type II 3. Essential hypertension 4. Depression with anxiety 5. Obstructive sleep apnea 6. DVT prophylaxis SC Lovenox Clinical Impression(s) from Imaging Studies Head CTA 05/23/18 22:08 IMPRESSION: Normal standing [place] of [place] without a demonstrated aneurysm or significant stenosis. Right maxillary sinusitis, uncertain chronicity. Electronically Signed: Kelsey Gutierrez MD at 23:26 EST Tel , Service support , Neck CTA 05/23/18 22:08 IMPRESSION: Normal bilateral cervical carotid and vertebral arteries. Right maxillary sinusitis. Electronically Signed: Kelsey Gutierrez MD at 22:41 EST Tel , Service support , Brain CT 05/23/18 22:09 IMPRESSION: 1. No acute process. 2. Microvascular ischemia. Atrophy. 3. Right maxillary sinusitis. Dr. Gutierrez discussed the findings with Dr. Chaney at 10:47 PM. N.B. : The above information has been verbally conveyed by Kelsey Gutierrez MD to Ruslan Chaney MD, MD, on 05/23/2018 22:47:33 (ET). Electronically Signed: Kelsey Gutierrez MD at 22:48 EST Tel , Service support , Chest X-Ray 05/23/18 22:09 IMPRESSION: Normal x-ray examination of the chest. Electronically Signed: Kelsey Gutierrez MD at 22:58 EST Tel , Service support , Code Visit Inpatient E&M: 26136 Subs Hosp L3
[2018-05-24] MEDS: predniSONE 20 MG Tablet 60 MG PO (15:07)
[2018-05-24] MEDS: Acyclovir 200 MG Capsule 400 MG PO ×3 (15:08→21:46)
[2018-05-24] MEDS: Insulin NPH Human 100 UNITS/ML PEN 25 UNITS SC (16:41)
[2018-05-24] MEDS: Insulin Lispro 100 UNIT/ML INSULN.PEN 10 UNIT SC (16:41)
[2018-05-24 16:50] LABS: Bedside Glucose 151 mg/dL (70-110)
[2018-05-24] MEDS: Atorvastatin Calcium 80 MG Tablet PO (21:46)
[2018-05-24] MEDS: Magnesium Hydroxide 30 ML UDC PO (21:51)
[2018-05-24 21:56] LABS: Bedside Glucose 233 mg/dL (70-110)
[2018-05-25] VITALS (11 sets, daily range): BP systolic 126–155; BP diastolic 78–87; PULSE 73–144; RESP 16–18; TEMP 36.4–36.7; O2SAT 95–97
[2018-05-25] MEDS: Collagenase 30gm Tube 1 APPLIC TOPICAL (04:24)
[2018-05-25] MEDS: Acyclovir 200 MG Capsule 400 MG PO ×3 (06:23→14:14)
[2018-05-25 07:06] LABS: Bedside Glucose 243 mg/dL (70-110)
[2018-05-25] MEDS: Insulin Lispro 100 UNIT/ML INSULN.PEN 10 UNIT SC ×2 (08:37→12:44)
[2018-05-25] MEDS: Insulin Lispro 100 UNIT/ML INSULN.PEN SC ×2 (08:37→12:43)
[2018-05-25] MEDS: Insulin NPH Human 100 UNITS/ML PEN 25 UNITS SC (08:38)
[2018-05-25] MEDS: Aspirin 81 MG TAB.CHEW PO (08:39)
[2018-05-25] MEDS: predniSONE 20 MG Tablet 60 MG PO (08:39)
[2018-05-25] MEDS: Doxycycline 100 MG CAPSULE PO (10:17)
[2018-05-25] MEDS: Famotidine 20 MG Tablet PO (10:18)
[2018-05-25] MEDS: Enoxaparin 40 MG/0.4 ML Syringe SC (10:18)
--- NOTE | 2018-05-25 10:30 | PCM.CONS.GEN ---
Reason for Consult Date of Consultation: 05/25/18 Reason for Consultation: left facial droop History of Present Illness: The patient is a 73 year old M right handed reports first noted tearing from left eye 3d ago. two days ago noted left facial droop, no other sx or weakness. per admit h&p:The patient is a 73 y/o M w/ PMHx: HTN, HLD, TRICIA, Anxiety and Depression, Diabetes mellitus type II, Obesity, Chronic R Foot Wound s/p TMA and follow-up debridement w/ ongoing wet-->dry dressings who presents to the [facility] ED on 05/23/18 with history of onset left facial droop and mild to moderate dysarthria starting possibly after 6:30-7 pm as last noted normal per daughter with following this noted changes w/ EMS call. She notes she had performed his dressing around 6:30-7 pm and upon looking up did not noted any facial droop at that time thus the onset came after the dressing changes she notes. She did state that he did complaint of mild L eye irritation with some tearing starting ~ 2 days prior but there was no accompanying discharge or scleral redness. In the ED work-up included T 97.8, heart rate 72, BP initially 182/91, respiratory rate 16, 98% on room air-->BP 145/78, unremarkable CBC, unremarkable coags, unremarkable BMP aside glucose 232, troponin 0 0.019, chest x-ray unremarkable, CT brain with no acute process with microvascular ischemia, atrophy and right maxillary sinusitis of uncertain chronicity, CTA head within normal [place] without a demonstrated aneurysm or significant stenosis with right maxillary sinusitis of uncertain chronicity, CTA neck with normal bilateral cervical carotid and vertebral arteries with right maxillary sinusitis of uncertain chronicity. Past Medical History Past Medical History (Chronic Problems): Chronic Problems TRICIA (obstructive sleep apnea) (Chronic) Wound of foot (Chronic) Hyperlipidemia (Chronic) Diabetes mellitus, type 2 (Chronic) Benign essential hypertension (Chronic) Allergies No Known Allergies Allergy (Verified 05/23/18 23:01) Home Medications: Ambulatory Orders Medication Instructions Recorded Glipizide [Glipizide ER] 5 mg PO BID 05/23/18 Insulin Regular, Human [Novolin R] See Protocol IJ TIDCM 05/23/18 Lisinopril [Zestril] 5 mg PO DAILY 05/23/18 Metformin HCl 500 mg PO BID 05/23/18 Insulin Aspart [Novolog Flexpen] 10 units SC TIDCM #0 05/25/18 Insulin NPH Human [Humulin N Pen] 25 units SC BID #0 05/25/18 Surgical History: - - Right foot surgery x2, initially TMA in 2004 and recent follow-up surgical intervention. Psychiatric History: Anxiety, Depression Lives: With Family - Patient is currently residing with his daughter following recent surgical intervention for the last several months per NH recommendation. Smoking Status: Never smoker Tobacco Use: Non-smoker Alcohol: None Drugs: None - *Family History Maternal History Items: Diabetes Paternal History Items: COPD Review of Systems Constitutional: Denies: Chills, Fever, Weight Change HEENT: Denies: Head Aches, Sinus Congestion, Sinus Drainage Cardiovascular: Denies: Chest Pain, Palpitations Respiratory: Denies: Cough, Shortness of breath at rest, Sputum production Gastrointestinal: Denies: Abdominal Pain, Nausea, Vomiting Genitourinary: Denies: Dysuria Musculoskeletal: Denies: Joint Pain, Joint Tenderness Skin: Denies: Rash, Wounds Neurological: Denies: Numbness, Tingling, Focal weakness Psychiatric: Denies: Anxiety, Depression, Homicidal Ideations, Suicidal Ideations Hematologic/ Lymphatic: Denies: Easy Bruising, Easy Bleeding Patient Problems: Active and Suspected Problems CVA (cerebral vascular accident) (Acute) - Physical Exam General: Alert, Oriented x3, No apparent distress HEENT: PERRLA, EOMI Neurological: Cranial nerves II-XII grossly intact - left peripheral viith nerve palsy, Deep Tendon Reflexes 2+/4 and Symmetrical, Neuro grossly intact, Motor Exam 5/5 strength throughout, Facial Droop Psych/Mental Status: Normal Affect, Alert and oriented to time, place, person, mood and affect Vital Signs Temp Pulse Resp BP Pulse Ox 36.5 C L 73 16 142/87 H 97 05/25/18 08:26 05/25/18 08:26 05/25/18 08:26 05/25/18 08:26 05/25/18 08:26 Oxygen Delivery Method Room Air Weight: 87.3 kg Body Mass Index (BMI) 28.4 Finger Stick Blood Glucose 285 Intake and Output for Last 24 Hours 05/23/18 05/24/18 05/25/18 23:59 23:59 23:59 Intake Total 2374 / 2374 1000 / 1000 Output Total 3840 / 3840 925 / 925 Balance -1466 / -1466 75 / 75 POC Glucose 05/25/18 05/24/18 05/24/18 06:32 21:42 16:39 POC Glucose 243 H 233 H 151 H 05/24/18 10:55 POC Glucose 239 H mri reviewed, no acute Current Medications Generic Name Dose Route Start Last Admin Trade Name Freq PRN Reason Stop Dose Admin Acetaminophen 650 mg 05/24/18 00:19 Tylenol PO Q4H PRN PRN Headache/Temp>99F Acyclovir 400 mg 05/24/18 14:00 05/25/18 10:17 Zovirax PO 400 mg 5X/DAY KVNG Administration Al Hydroxide/Mg Hydroxide 30 ml 05/24/18 00:19 Mylanta Ii PO Q6H PRN PRN Gastric burning Aspirin 81 mg 05/24/18 08:00 05/25/18 08:39 Aspirin, Baby PO 81 mg DAILY@0800 KVNG Administration Atorvastatin Calcium 80 mg 05/24/18 22:00 05/24/18 21:46 Lipitor PO 80 mg QHS KVNG Administration Collagenase 1 applic 05/24/18 10:00 05/25/18 08:45 Santyl TOPICAL Not Given DAILY [facility] Protocol Doxycycline Monohydrate 100 mg 05/24/18 10:00 05/25/18 10:17 Doxycycline PO 100 mg BID KVNG Administration Enoxaparin Sodium 40 mg 05/24/18 10:00 05/25/18 10:18 Lovenox SC 40 mg DAILY@1000 KVNG Administration Famotidine 20 mg 05/24/18 10:00 05/25/18 10:18 Pepcid PO 20 mg BID KVNG Administration Hydralazine HCl 5 mg 05/24/18 00:19 Apresoline Iv IV Q30M PRN sbp > 220/120 Insulin Human Lispro 0 unit 05/24/18 16:00 05/25/18 08:37 Humalog Kwikpen (Bk) SC 6 units ACHS KVNG Administration Protocol Insulin Human Lispro 10 unit 05/24/18 17:00 05/25/18 08:37 Humalog Kwikpen (Bk) SC 10 units TIDCM KVNG Administration Insulin Human NPH 25 units 05/24/18 16:30 05/25/18 08:38 Humulin N (Bkc) SC 25 units BIDAC KVNG Administration Magnesium Hydroxide 30 ml 05/24/18 00:19 05/24/18 21:51 Milk Of Magnesia PO 30 ml DAILY PRN Administration Constipation Nutritional Formula (Lactose Free) 120 ml 05/24/18 08:00 05/25/18 08:36 Glucerna Shake PO Not Given TIDCM KVNG Ondansetron HCl 4 mg 05/24/18 00:18 Zofran IV Q8H PRN PRN NAUSEA/VOMITING Prednisone 60 mg 05/24/18 13:07 05/25/18 08:39 PO 05/30/18 08:01 60 mg DAILY@0800 KVNG Administration Sodium Chloride 5 - 15 ml 05/24/18 01:35 IV UD PRN SALINE FLUSH Assessment/Plan All Active Problems CVA (cerebral vascular accident) (Acute) bells palsy eye patch at natural tears acyclovir medrol dose michael ok to dc
--- NOTE | 2018-05-25 11:22 | CASEMGMT ---
RN CM Assessment Presentation: Facial droop, dysarthria PCP: Dr. Haddad, [facility] Preferred Pharmacy: [facility], [place]. Pt requests paper scripts on dc and will either fille @ [place] or locally if needed. Insurance: [facility] Prescription Benefit: yes through [place] LNOK: Ac Kate, daughter Living Arrangements: Pt living with daughter presently after recent partial foot amputation. Two story home, bedroom upstairs. Pt states he is doing well with staying with family. Transportation: family drives. Daughter will pick pt up to take home. DME/HHC: crutches, WC, shower chair DC PLAN: Home with family support.
[2018-05-25 11:41] LABS: Bedside Glucose 292 mg/dL (70-110)
--- NOTE | 2018-05-25 11:49 | PCM.DC ---
- Discharge Diagnoses Current Active Problems: Current Active and Chronic Problems Cruz's palsy You will use the following diet at home:: Calorie/Carbohydrate Controlled (specify 1200, 1400, etc) Discharge Activity: Return to Normal Activity Call your doctor if you observe: Shortness of breath, Dizziness, Fainting spells, Chest pain Additional Instructions: Tape left eye shut at night or use eye patch on left eye. Allergies/Adverse Reactions: Allergies No Known Allergies Allergy (Verified 05/23/18 23:01) Medications to take at Discharge Glipizide [Glipizide ER] 5 mg PO BID 05/23/18 Insulin Regular, Human [Novolin R] See Protocol IJ TIDCM 05/23/18 Lisinopril [Zestril] 5 mg PO DAILY 05/23/18 Metformin HCl 500 mg PO BID 05/23/18 Insulin Aspart [Novolog Flexpen] 10 units SC TIDCM #0 05/25/18 Insulin NPH Human [Humulin N Pen] 25 units SC BID #0 05/25/18 Peg 400/Hypromellose/Glycerin [Artificial Tears] 1 drp LEFT EYE 4X/DAY #15 ml 05/25/18 Prednisone See Taper PO DAILY #33 tab 05/25/18 Valacyclovir HCl [Valacyclovir] 1,000 mg PO TID #21 tab 05/25/18 The following prescriptions were given: Prednisone See Taper PO DAILY #33 tab Valacyclovir HCl [Valacyclovir] 1,000 mg PO TID #21 tab Peg 400/Hypromellose/Glycerin [Artificial Tears] 1 drp LEFT EYE 4X/DAY #15 ml Primary Care Physician: [facility] [Primary Care Provider] - Please follow up with your Primary Care Physician in: 1 Week Test Results: Test results from this visit will be discussed in further detail at your follow-up appointment, if applicable. Proposed Discharge Date: 05/25/18
--- NOTE | 2018-05-25 12:20 | NURSING ---
wound photo: right foot
--- NOTE | 2018-05-25 12:47 | PCM.DC.SUM ---
<Quiana Hanna - Last Filed: 05/25/18 12:53> Discharge Date and Diagnosis Date of Admission: 05/23/18 Date of Discharge: 05/25/18 - Primary Discharge Diagnosis Active and Suspected Problems 1. 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 Type 2 diabetes mellitus, poorly controlled 3. 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 Hypertension 5. TRICIA 6. Anxiety/depression 7. Obesity - Secondary Discharge Diagnosis Chronic Problems TRICIA (obstructive sleep apnea) (Chronic) Wound of foot (Chronic) Hyperlipidemia (Chronic) Diabetes mellitus, type 2 (Chronic) Benign essential hypertension (Chronic) Hospital Course and Treatment Imaging Results: Diagnostic Data Head CTA 05/23/18 22:08 IMPRESSION: Normal [place] without a demonstrated aneurysm or significant stenosis. Right maxillary sinusitis, uncertain chronicity. Electronically Signed: Kelsey Gutierrez MD at 23:26 EST Tel , Service support , Neck CTA 05/23/18 22:08 IMPRESSION: Normal bilateral cervical carotid and vertebral arteries. Right maxillary sinusitis. Electronically Signed: Kelsey Gutierrez MD at 22:41 EST Tel , Service support , Brain CT 05/23/18 22:09 IMPRESSION: 1. No acute process. 2. Microvascular ischemia. Atrophy. 3. Right maxillary sinusitis. Dr. Gutierrez discussed the findings with Dr. Chaney at 10:47 PM. N.B. : The above information has been verbally conveyed by Kelsey Gutierrez MD to Ruslan Chaney MD, MD, on 05/23/2018 22:47:33 (ET). Electronically Signed: Kelsey Gutierrez MD at 22:48 EST Tel , Service support , Chest X-Ray 05/23/18 22:09 IMPRESSION: Normal x-ray examination of the chest. Electronically Signed: Kelsey Gutierrez MD at 22:58 EST Tel , Service support , Brain MRI 05/24/18 00:19 Consultations 05/24/18 00:19 Consult: Onc/Wound/elastic cutter Routine Comment: Dr. Baker- Neurology Operations: None Procedures: 2-D Echocardiogram Summary of Care Provided: The patient is a 73 year old M admitted 05/23/2018 due to left facial droop. 1. 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 CT of head with normal [place], no significant stenosis. CT of neck with normal bilateral cervical carotid and vertebral arteries. MRI of brain without evidence of infarct. Echo completed, pending. Neurology consulted. Confirms Cruz's palsy. Patient discharged on valacyclovir 1000 mg 3 times daily for 1 week. Patient will complete prednisone taper of 60 mg for 5 days, 50 mg for 1 day, 40 mg for 1 day, 30 mill grams 1 day, 20 mill grams for 1 day, 10 mg 1 day. Artificial tears 4 times daily left eye. Tape left eye shut at night. [facility]. 2. Type 2 diabetes mellitus, poorly controlled-hemoglobin A1c 9.1%. Home insulin regimen increased. Further follow-up by primary care physician. 3. 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 Patient completed a course of doxycycline 05/24/2018. 4. Hypertension-stable, continue home regimen. 5. TRICIA-continue CPAP nightly. 6. Anxiety/depression-not on regimen. Encouraged outpatient follow-up. 7. Obesity-encouraged diet lifestyle modification. General: Alert, Oriented x3, Cooperative HEENT: Atraumatic, PERRLA, EOMI, Normocephalic Oral: Moist Mucosa Neck: Supple, No JVD, Negative Carotid Bruits Lungs: Clear to auscultation, Normal air movement Cardiovascular: Regular rate, Regular Rhythm, Normal S1, Normal S2, No murmurs Abdomen: Bowel Sounds Present, Soft, Non Tender, Non-Distended, Obese Extremities: No clubbing, No cyanosis, No edema, Capillary Refill Less than 3 Seconds Skin: No rashes, No breakdown, - - Right foot chronic wound, status post TMA. Dressing clean dry and intact. Musculoskeletal: No Tenderness to Palpation of Joints or Extremities Neurological: Cranial nerves II-XII grossly intact, - - Left-sided facial droop. Psych/Mental Status: Normal Affect, Appropriate Patient seen and examined prior to discharge. Physical assessment as noted above. Patient is stable for discharge with follow up recommendations as noted above. This patient was seen by ABDIRIZAK Aranda under the supervision of Dr. Blair. - Physical Exam Vital Signs Temp Pulse Resp BP Pulse Ox 97.7 F L 81 16 142/87 H 97 05/25/18 08:26 05/25/18 11:46 05/25/18 08:26 05/25/18 08:26 05/25/18 08:26 Oxygen Delivery Method Room Air Weight: 192 lb 7.417 oz Body Mass Index (BMI) 28.4 Finger Stick Blood Glucose 285 Intake and Output for Last 24 Hours 05/23/18 05/24/18 05/25/18 23:59 23:59 23:59 Intake Total 2374 / 2374 1480 / 1480 Output Total 3840 / 3840 2075 / 2075 Balance -1466 / -1466 -595 / -595 POC Glucose 05/25/18 05/25/18 05/24/18 11:09 06:32 21:42 POC Glucose 292 H 243 H 233 H 05/24/18 16:39 POC Glucose 151 H Discharge Diet: Carb Control Diet Discharge Activity: Return to Normal Activity Call your doctor if you observe: Shortness of breath, Dizziness, Fainting spells, Chest pain Home Medications: Medications to take at Discharge Glipizide [Glipizide ER] 5 mg PO BID 05/23/18 Insulin Regular, Human [Novolin R] See Protocol IJ TIDCM 05/23/18 Lisinopril [Zestril] 5 mg PO DAILY 05/23/18 Metformin HCl 500 mg PO BID 05/23/18 Insulin Aspart [Novolog Flexpen] 10 units SC TIDCM #0 05/25/18 Insulin NPH Human [Humulin N Pen] 25 units SC BID #0 05/25/18 Peg 400/Hypromellose/Glycerin [Artificial Tears] 1 drp LEFT EYE 4X/DAY #15 ml 05/25/18 Prednisone See Taper PO DAILY #33 tab 05/25/18 Valacyclovir HCl [Valacyclovir] 1,000 mg PO TID #21 tab 05/25/18 Following Prescrptions Were Given to Patient: Prednisone See Taper PO DAILY #33 tab Valacyclovir HCl [Valacyclovir] 1,000 mg PO TID #21 tab Peg 400/Hypromellose/Glycerin [Artificial Tears] 1 drp LEFT EYE 4X/DAY #15 ml [facility] - Please follow up with your Primary Care Physician in: 1 Week Disposition: Home Minutes spent on discharge:: 35 Patient Condition:: Stable Medical Necessity - Tobacco Use Smoking Status: Never smoker Tobacco Use: Non-smoker Meaningful Use Info Meaningful Use Diagnoses (Choose all that apply): None applicable <Jacques Blair - Last Filed: 05/25/18 13:30> Discharge Date and Diagnosis - Secondary Discharge Diagnosis Chronic Problems TRICIA (obstructive sleep apnea) (Chronic) Wound of foot (Chronic) Hyperlipidemia (Chronic) Diabetes mellitus, type 2 (Chronic) Benign essential hypertension (Chronic) Hospital Course and Treatment Consultations 05/24/18 00:19 Consult: Onc/Wound/elastic cutter Routine Comment: Summary of Care Provided: The patient is a 73 year old M [] - Physical Exam Vital Signs Temp Pulse Resp BP Pulse Ox 97.7 F L 81 16 142/87 H 97 05/25/18 08:26 05/25/18 11:46 05/25/18 08:26 05/25/18 08:26 05/25/18 08:26 Oxygen Delivery Method Room Air Weight: 192 lb 7.417 oz Body Mass Index (BMI) 28.4 Finger Stick Blood Glucose 285 Intake and Output for Last 24 Hours 05/23/18 05/24/18 05/25/18 23:59 23:59 23:59 Intake Total 2374 / 2374 1480 / 1480 Output Total 3840 / 3840 2075 / 2075 Balance -1466 / -1466 -595 / -595 POC Glucose 05/25/18 05/25/18 05/24/18 11:09 06:32 21:42 POC Glucose 292 H 243 H 233 H 05/24/18 16:39 POC Glucose 151 H Code Visit Addendum: Dr. Blair I personally examined the patient and reviewed the chart. I agree with the above. 73-year-old male who presented with left-sided facial droop and initially thought to be a CVA. 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 And recommended that he be discharged on acyclovir and a steroid taper. Patient is feeling better today and would like to go home. He will need to follow-up with his outpatient physician on discharge. Inpatient E&M: [id number] [facility]
--- NOTE | 2018-05-25 12:53 | DS.PCM_ITS ---
<Quiana Hanna - Last Filed: 05/25/18 12:53> Discharge Date and Diagnosis Date of Admission: 05/23/18 Date of Discharge: 05/25/18 - Primary Discharge Diagnosis Active and Suspected Problems 1. 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 Type 2 diabetes mellitus, poorly controlled 3. 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 Hypertension 5. TRICIA 6. Anxiety/depression 7. Obesity - Secondary Discharge Diagnosis Chronic Problems TRICIA (obstructive sleep apnea) (Chronic) Wound of foot (Chronic) Hyperlipidemia (Chronic) Diabetes mellitus, type 2 (Chronic) Benign essential hypertension (Chronic) Hospital Course and Treatment Imaging Results: Diagnostic Data Head CTA 05/23/18 22:08 IMPRESSION: Normal [place] without a demonstrated aneurysm or significant stenosis. Right maxillary sinusitis, uncertain chronicity. Electronically Signed: Kelsey Gutierrez MD at 23:26 EST Tel , Service support , Neck CTA 05/23/18 22:08 IMPRESSION: Normal bilateral cervical carotid and vertebral arteries. Right maxillary sinusitis. Electronically Signed: Kelsey Gutierrez MD at 22:41 EST Tel , Service support , Brain CT 05/23/18 22:09 IMPRESSION: 1. No acute process. 2. Microvascular ischemia. Atrophy. 3. Right maxillary sinusitis. Dr. Gutierrez discussed the findings with Dr. Chaney at 10:47 PM. N.B. : The above information has been verbally conveyed by Kelsey Gutierrez MD to Ruslan Chaney MD, MD, on 05/23/2018 22:47:33 (ET). Electronically Signed: Kelsey Gutierrez MD at 22:48 EST Tel , Service support , Chest X-Ray 05/23/18 22:09 IMPRESSION: Normal x-ray examination of the chest. Electronically Signed: Kelsey Gutierrez MD at 22:58 EST Tel , Service support , Brain MRI 05/24/18 00:19 Consultations 05/24/18 00:19 Consult: Onc/Wound/cena Routine Comment: Dr. Baker- Neurology Operations: None Procedures: 2-D Echocardiogram Summary of Care Provided: The patient is a 73 year old M admitted 05/23/2018 due to left facial droop. 1. 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 CT of head with normal [place], no significant stenosis. CT of neck with normal bilateral cervical carotid and vertebral arteries. MRI of brain without evidence of infarct. Echo completed, pending. Neurology consulted. Confirms Cruz's palsy. Patient discharged on valacyclovir 1000 mg 3 times daily for 1 week. Patient will complete prednisone taper of 60 mg for 5 days, 50 mg for 1 day, 40 mg for 1 day, 30 mill grams 1 day, 20 mill grams for 1 day, 10 mg 1 day. Artificial tears 4 times daily left eye. Tape left eye shut at night. [facility]. 2. Type 2 diabetes mellitus, poorly controlled-hemoglobin A1c 9.1%. Home insulin regimen increased. Further follow-up by primary care physician. 3. 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 Patient completed a course of doxycycline 05/24/2018. 4. Hypertension-stable, continue home regimen. 5. TRICIA-continue CPAP nightly. 6. Anxiety/depression-not on regimen. Encouraged outpatient follow-up. 7. Obesity-encouraged diet lifestyle modification. General: Alert, Oriented x3, Cooperative HEENT: Atraumatic, PERRLA, EOMI, Normocephalic Oral: Moist Mucosa Neck: Supple, No JVD, Negative Carotid Bruits Lungs: Clear to auscultation, Normal air movement Cardiovascular: Regular rate, Regular Rhythm, Normal S1, Normal S2, No murmurs Abdomen: Bowel Sounds Present, Soft, Non Tender, Non-Distended, Obese Extremities: No clubbing, No cyanosis, No edema, Capillary Refill Less than 3 Seconds Skin: No rashes, No breakdown, - - Right foot chronic wound, status post TMA. Dressing clean dry and intact. Musculoskeletal: No Tenderness to Palpation of Joints or Extremities Neurological: Cranial nerves II-XII grossly intact, - - Left-sided facial droop. Psych/Mental Status: Normal Affect, Appropriate Patient seen and examined prior to discharge. Physical assessment as noted above. Patient is stable for discharge with follow up recommendations as noted above. This patient was seen by ABDIRIZAK Aranda under the supervision of Dr. Blair. - Physical Exam Vital Signs Temp Pulse Resp BP Pulse Ox 97.7 F L 81 16 142/87 H 97 05/25/18 08:26 05/25/18 11:46 05/25/18 08:26 05/25/18 08:26 05/25/18 08:26 Oxygen Delivery Method Room Air Weight: 192 lb 7.417 oz Body Mass Index (BMI) 28.4 Finger Stick Blood Glucose 285 Intake and Output for Last 24 Hours 05/23/18 05/24/18 05/25/18 23:59 23:59 23:59 Intake Total 2374 / 2374 1480 / 1480 Output Total 3840 / 3840 2075 / 2075 Balance -1466 / -1466 -595 / -595 POC Glucose 05/25/18 05/25/18 05/24/18 11:09 06:32 21:42 POC Glucose 292 H 243 H 233 H 05/24/18 16:39 POC Glucose 151 H Discharge Diet: Carb Control Diet Discharge Activity: Return to Normal Activity Call your doctor if you observe: Shortness of breath, Dizziness, Fainting spells, Chest pain Home Medications: Medications to take at Discharge Glipizide [Glipizide ER] 5 mg PO BID 05/23/18 Insulin Regular, Human [Novolin R] See Protocol IJ TIDCM 05/23/18 Lisinopril [Zestril] 5 mg PO DAILY 05/23/18 Metformin HCl 500 mg PO BID 05/23/18 Insulin Aspart [Novolog Flexpen] 10 units SC TIDCM #0 05/25/18 Insulin NPH Human [Humulin N Pen] 25 units SC BID #0 05/25/18 Peg 400/Hypromellose/Glycerin [Artificial Tears] 1 drp LEFT EYE 4X/DAY #15 ml 05/25/18 Prednisone See Taper PO DAILY #33 tab 05/25/18 Valacyclovir HCl [Valacyclovir] 1,000 mg PO TID #21 tab 05/25/18 Following Prescrptions Were Given to Patient: Prednisone See Taper PO DAILY #33 tab Valacyclovir HCl [Valacyclovir] 1,000 mg PO TID #21 tab Peg 400/Hypromellose/Glycerin [Artificial Tears] 1 drp LEFT EYE 4X/DAY #15 ml [facility] - Please follow up with your Primary Care Physician in: 1 Week Disposition: Home Minutes spent on discharge:: 35 Patient Condition:: Stable Medical Necessity - Tobacco Use Smoking Status: Never smoker Tobacco Use: Non-smoker Meaningful Use Info Meaningful Use Diagnoses (Choose all that apply): None applicable <Jacques Blair - Last Filed: 05/25/18 13:30> Discharge Date and Diagnosis - Secondary Discharge Diagnosis Chronic Problems TRICIA (obstructive sleep apnea) (Chronic) Wound of foot (Chronic) Hyperlipidemia (Chronic) Diabetes mellitus, type 2 (Chronic) Benign essential hypertension (Chronic) Hospital Course and Treatment Consultations 05/24/18 00:19 Consult: Onc/Wound/cena Routine Comment: Summary of Care Provided: The patient is a 73 year old M [] - Physical Exam Vital Signs Temp Pulse Resp BP Pulse Ox 97.7 F L 81 16 142/87 H 97 05/25/18 08:26 05/25/18 11:46 05/25/18 08:26 05/25/18 08:26 05/25/18 08:26 Oxygen Delivery Method Room Air Weight: 192 lb 7.417 oz Body Mass Index (BMI) 28.4 Finger Stick Blood Glucose 285 Intake and Output for Last 24 Hours 05/23/18 05/24/18 05/25/18 23:59 23:59 23:59 Intake Total 2374 / 2374 1480 / 1480 Output Total 3840 / 3840 2075 / 2075 Balance -1466 / -1466 -595 / -595 POC Glucose 05/25/18 05/25/18 05/24/18 11:09 06:32 21:42 POC Glucose 292 H 243 H 233 H 05/24/18 16:39 POC Glucose 151 H Code Visit Addendum: Dr. Blair I personally examined the patient and reviewed the chart. I agree with the above. 73-year-old male who presented with left-sided facial droop and initially thought to be a CVA. 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 And recommended that he be discharged on acyclovir and a steroid taper. Patient is feeling better today and would like to go home. He will need to follow-up with his outpatient physician on discharge. Inpatient E&M: [id number] [facility]
--- NOTE | 2018-05-25 14:38 | NURSING ---
Daughter voices concern regarding patient's scripts for antibiotics and that the [facility]. Voiced conerns to BALBINA Matos CM. She will speak with family.
--- NOTE | 2018-05-25 14:40 | NURSING ---
Sent tape with patient to tape left eye shut at bedtime. Instructed patient on use of same. Voices understanding.
--- NOTE | 2018-05-25 14:45 | CASEMGMT ---
Per Kimi MORTENSEN, [facility] [place] and is unsure how he is going to get the valacyclovir and prednisone filled at this time. Pt is also inquiring about neuro c/s through [facility] and if it should be done through the [facility]. Per Carissa MORTENSEN CM, [facility] with [facility]. This RN CM to bedside to speak with pt regarding same. Per pt/daughter, pt's appt later this week is with a skewer up at the [facility] and not with primary care at [place]. This RN CM did attempt to reach [facility] at this time but they are closed today d/t [place] holiday. Pt/daughter updated at this time, voice understanding. Daughter states that she would be unable to get pt to [facility] d/t work schedule and her own appt. Daughter states they would like to get him up there on Friday but she is not sure if they will have an appt. open. This RN CM placed call to Jun in [facility] retail pharmacy and she states that pt's Valacyclovir would be $25.78 and prednisone would be $9.99. This RN CM to room to speak with pt/daughter and daughter states that she can loan money to pt at this time to fill scripts. Daughter states that they will product picker scripts on the way out. Pt/daughter also state that they will advised [facility] about need for [facility] referral at next PCP visit. Kimi MORTENSEN updated at this time, voices understanding. Pt ready for dispo. Matthew MORTENSEN CM
--- OUTSIDE RECORDS SUMMARY | 2018-07-27 10:52 | XMS RPT_ITS ---
:1945 Author Organization OH[facility] Care Team Providers Name Role Phone [facility], [place] Primary [facility] Unavailable White, Sylwia Admitting Unavailable White, Sylwia Referring Unavailable Nery, Kera S. Consulting Unavailable Jacques Blair Attending Unavailable White, Sylwia Admitting Unavailable White, Sylwia Attending Unavailable White, Sylwia Referring Unavailable [facility] [place] [facility] Unavailable Nery, Kera S. Consulting Unavailable White, Sylwia Consulting Unavailable White, Sylwia Admitting Unavailable ABDIRIZAK Aranda Attending Unavailable White, Sylwia Referring Unavailable [facility], [place] Primary [facility] Unavailable Kera Gabriel S. Consulting Unavailable Huang Holbrook Consulting Unavailable White, Sylwia Admitting Unavailable ABDIRIZAK Aranda Attending Unavailable White, Sylwia Referring Unavailable [facility] [place] [facility] Unavailable Nery, Kera S. Consulting Unavailable Jacques Blair Consulting Unavailable PROBLEMS PROBLEMS No Problem Records FoundPROCEDURES PROCEDURES No Procedure Records FoundRESULTS RESULTS EMERGENCY DEPARTMENT Observed: 05/28/2018 Status: F Source: [place] SUMMARY 4:12 PM [facility] Medical Records Department [address] [facility] [place] [address] Emergency Department Summary 05/23/18 2255 MR#: [id number] Acct: [id number] Name: SALLY KELSEY Rep #: [id number] : 1945 73 From: Ruslan Chaney DO PCP: [place] [place] Status: DIS IN - ER Visit Summary Date of Service: 05/23/18 Chief Complaint: [Left-sided facial droop] History of Present Illness: The patient is a 73 M [presents to the emergency department with complaint of left-sided facial droop that was noticed by family members about 25 minutes prior to arrival in the emergency department. Patient denies any extremity weakness. He denies any paresthesias. He denies any difficulty with speech. He denies any visual changes. Patient states that a couple days ago started having some drainage from his left eye and some blurred vision intermittently. He denies otherwise recent illness. Patient does have a history of diabetes. No prior history of stroke or cardiac history. Patient denies any headache. He denies any falls or head injuries.] Physical Examination: [HEENT-PERRLA, EOMI. Cranial nerves II through XII grossly intact. TMs clear. Mucous membranes moist. No adenopathy. Cardiovascular-regular rate and rhythm without murmur or ectopy Lungs-clear to auscultation, chest wall stable without crepitus or subcu emphysema Abdomen-normoactive bowel sounds, soft, nontender, no rebound or rigidity, no peritoneal signs. Neuro exam-patient does have a left-sided facial droop. Normal strength in the upper and lower extremities noted. Finger to nose and heel luna testing within normal limits. No pronator drift. No visual changes. NIH stroke scale was a 2. No sensory changes. Extremities-intact 4, normal range of motion, normal pulses, atraumatic] Test Results: [CT scan of the brain without contrast showed chronic white matter changes. CTA of the neck was unremarkable. CBC with differential was unremarkable. Chemistries unremarkable. Troponin was less than 0.015. CTA of the brain was unremarkable.] Emergency Department Course and Treatment: [Patient case was discussed with neurologist on-call and at this point he does not meet thrombolytic criteria. Will admit for further workup and evaluation of possible stroke. Also in the differential would be a Cruz's palsy potentially. I discussed case with patient's family member who eventually arrived in the emergency department and now she cannot be certain when the symptoms started but she believes it was sometime after 1800 hrs.] Treatment Plan: [Admit] Disposition: [Admit] Impression: [CVA Hyperglycemia] This note was generated with [employer] dictation software. It may contain incorrect words, spelling, and punctuation that were not noted in review of the chart prior to signing ED Disposition - Plan for ED Patient: Chief Complaint: Neuro S/Sx Referrals: [place] [Primary Care Provider] - What to do if you have Problems For any increased pain, shortness of breath, bleeding, nausea or vomiting, chest pain, or any unexpected problems, contact your Primary Care Provider. Call [facility] ([phone]) or report to the closest Emergency Room. Call 911 if necessary. 05/28/18 1612 <Electronically signed by Ruslan Chaney DO> Date Ruslan Chaney DO Cosigner Signature (If Indicated): Date CC: [facility] CONSULTATION Observed: 05/27/2018 Status: F Source: [place] 9:56 AM [facility] Medical Records Department [address] [place] [address] Consultation 05/25/18 1030 MR#: [id number] Acct: [id number] Name: SALLY KELSEY Rep #: [id number] : 1945 73 From: Eusebio Baker MD [place]CP: [place] [place] Status: DIS IN Y Location: [facility] [id number] Reason for Consult Date of Consultation: 05/25/18 Reason for Consultation: left facial droop History of Present Illness: The patient is a 73 year old M right handed reports first noted tearing from left eye 3d ago. two days ago noted left facial droop, no other sx or weakness. per admit h AND p:The patient is a 73 y/o M w/ PMHx: HTN, HLD, TRICIA, Anxiety and Depression, Diabetes mellitus type II, Obesity, Chronic R Foot Wound s/p TMA and follow-up debridement w/ ongoing wet-->dry dressings who presents to the [facility] ED on 05/23/18 with history of onset left facial droop and mild to moderate dysarthria starting possibly after 6:30-7 pm as last noted normal per daughter with following this noted changes w/ EMS call. She notes she had performed his dressing around 6:30-7 pm and upon looking up did not noted any facial droop at that time thus the onset came after the dressing changes she notes. She did state that he did complaint of mild L eye irritation with some tearing starting 2 days prior but there was no accompanying discharge or scleral redness. In the ED work- up included T 97.8, heart rate 72, BP initially 182/91, respiratory rate 16, 98% on room air-->BP 145/78, unremarkable CBC, unremarkable coags, unremarkable BMP aside glucose 232, troponin 0 0.019, chest x-ray unremarkable, CT brain with no acute process with microvascular ischemia, atrophy and right maxillary sinusitis of uncertain chronicity, CTA head within normal [place] without a demonstrated aneurysm or significant stenosis with right maxillary sinusitis of uncertain chronicity, CTA neck with normal bilateral cervical carotid and vertebral arteries with right maxillary sinusitis of uncertain chronicity. Past Medical History Past Medical History (Chronic Problems): Chronic Problems TRICIA (obstructive sleep apnea) (Chronic) Wound of foot (Chronic) Hyperlipidemia (Chronic) Diabetes mellitus, type 2 (Chronic) Benign essential hypertension (Chronic) Allergies No Known Allergies Allergy (Verified 05/23/18 23:01) Home Medications: Ambulatory Orders Medication Instructions Recorded Glipizide [Glipizide ER] 5 mg PO BID 05/23/18 Insulin Regular, Human [Novolin R] See Protocol IJ TIDCM 05/23/18 Lisinopril [Zestril] 5 mg PO DAILY 05/23/18 Surgical History: - - Right foot surgery x2, initially TMA in 2004 and recent follow-up surgical intervention. Psychiatric History: Anxiety, Depression Lives: With Family - Patient is currently residing with his daughter following recent surgical intervention for the last several months per [facility]. Smoking Status: Never smoker Tobacco Use: Non-smoker Alcohol: None Drugs: None - *Family History Maternal History Items: Diabetes Paternal History Items: COPD Review of Systems Constitutional: Denies: Chills, Fever, Weight Change HEENT: Denies: Head Aches, Sinus Congestion, Sinus Drainage Cardiovascular: Denies: Chest Pain, Palpitations Respiratory: Denies: Cough, Shortness of breath at rest, Sputum production Gastrointestinal: Denies: Abdominal Pain, Nausea, Vomiting Genitourinary: Denies: Dysuria Musculoskeletal: Denies: Joint Pain, Joint Tenderness Skin: Denies: Rash, Wounds Neurological: Denies: Numbness, Tingling, Focal weakness Psychiatric: Denies: Anxiety, Depression, Homicidal Ideations, Suicidal Ideations Hematologic/ Lymphatic: Denies: Easy Bruising, Easy Bleeding Patient Problems: Active and Suspected Problems CVA (cerebral vascular accident) (Acute) - Physical Exam General: Alert, Oriented x3, No apparent distress HEENT: PERRLA, EOMI Neurological: Cranial nerves II-XII grossly intact - left peripheral viith nerve palsy, Deep Tendon Reflexes 2+/4 and Symmetrical, Neuro grossly intact, Motor Exam 5/5 strength throughout, Facial Droop Psych/Mental Status: Normal Affect, Alert and oriented to time, place, person, mood and affect Vital Signs Temp Pulse Resp BP Pulse Ox 36.5 C L 73 16 142/87 H 97 05/25/18 08:26 05/25/18 08:26 05/25/18 08:26 05/25/18 08:26 05/25/18 08:26 Oxygen Delivery Method Room Air Weight: 87.3 kg Body Mass Index (BMI) 28.4 Finger Stick Blood Glucose 285 Intake and Output for Last 24 Hours Intake Total 2374 / 2374 1000 / 1000 Output Total 3840 / 3840 925 / 925 Balance -1466 / -1466 75 / 75 POC Glucose POC Glucose 243 H 233 H 151 H POC Glucose 239 H mri reviewed, no acute Current Medications Generic Name Dose Route Start Last Admin Assessment/Plan All Active Problems CVA (cerebral vascular accident) (Acute) bells palsy eye patch at natural tears acyclovir medrol dose michael ok to dc 05/27/18 0956 <Electronically signed by Eusebio Baker MD> Date Eusebio Baker MD Cosigner Signature (if applicable): Date CC: Jitendra Gabriel MD; [facility]; Sylwia Up Signed ECHO, COMPLETE W/ Observed: 05/25/2018 Status: F Source: [place] CONTRAST 3:35 PM [facility] Cardiovascular Services [address] [place] [address] Echo Complete W/ Contrast 05/25/18 0927 MR#: [id number] Acct: [id number] Name: SALLY KELSEY Rep #: [id number] : 1945 73 From: Sunny Gale MD Attending Dr: Jacques Blair MD Status: DIS IN Ordering Dr: Sylwia Up Date: 05/24/18 Location: [facility] Sex: M C Admitted: 05/23/18 Reason For Study: CVA Procedure This was a 2D Doppler, Color Flow transthoracic echocardiogram. Contrast injection was performed. Exam performed portable in patient room. Left Ventricle Normal LV size. Left ventricular systolic function is normal. The estimated ejection fraction is 55 %. Stage 1 diastolic dysfunction. No regional wall motion abnormalities noted. Right Ventricle Normal RV size. Normal systolic function. Atria Normal left atrium. Normal right atrium. Mitral Valve Normal mitral valve. Tricuspid Valve Normal tricuspid valve. Aortic Valve Normal aortic valve. Trisinus/trileaflet aortic valve. Pulmonic Valve Normal pulmonic valve. Great Vessels Normal aortic root. The pulmonary artery is normal size. Normal inferior vena cava. Pericardium/Pleural No pericardial effusion. Medication Performed a rapid injection of agitated mix of 9 cc saline and 1cc air to assess for atrial septal defect. Definity0.3ml given slow IV push to enhance endocardial definition. MMode/2D Measurements AND Calculations LVIDd: 4.9 cm IVSd: 1.2 cm Ao root diam: 3.2 cm LVIDs: 3.7 cm LVPWd: 1.0 cm RVDd: 3.6 cm FS: 24.8 % LAV(MOD-bp): 46.0 ml LVAd ap4: 28.8 cm2 SV(MOD-sp4): 43.3 ml LAV(MOD-bp) Indexed: 21.8 ml/m2 EDV(MOD-sp4): 84.9 ml LAV(MOD-sp2): 41.9 ml EDV(sp4-el): 87.1 ml LAV(MOD-sp4): 44.4 ml LVAs ap4: 19.0 cm2 ESV(MOD-sp4): 41.7 ml ESV(sp4-el): 43.5 ml EF(MOD-sp4): 50.9 % EF(sp4-el): 50.0 % SV(sp4-el): 43.5 ml LA A4 area: 17.5 cm2 LA dimension(2D): 3.8 cm RA A4 area: 13.0 cm2 Doppler Measurements AND Calculations MV E max chance: 73.5 cm/sec Lat Peak E' Chance: 7.8 cm/sec Med Peak E' Chance: 7.4 cm/sec MV A max chance: 95.0 cm/sec E/E' lat: 9.4 E/E' med: 10.0 MV E/A: 0.77 Ao V2 max: 125.5 cm/sec LV V1 max: 99.8 cm/sec PA V2 max: 128.1 cm/sec Ao max P.3 mmHg LV V1 max P.0 mmHg Ao V2 mean: 94.2 cm/sec Ao mean P.8 mmHg Ao V2 VTI: 25.5 cm Interpretation Summary Normal LV size. Left ventricular systolic function is normal. The estimated ejection fraction is 55 %. Stage 1 diastolic dysfunction. Contrast injection was performed. Ordering Physician: Sylwia Up Referring Physician: [facility] Performed By: Sarita Kurtz, PAVAN, RVT 05/25/18 1534 Date Sunny Gale MD CC: [facility]; Sylwia Up; Jacques Blair MD Date Dictated: 05/25/1827 Date Transcribed: 05/25/18 1534 Child Care Associate Teacher: Signed DISCHARGE SUMMARY Observed: 05/25/2018 Status: F Source: [place] 1:30 PM [facility] Medical Records Department [address] [place] [address] Discharge Summary 05/25/18 1247 MR#: [id number] Acct: [id number] Name: SALLY KELSEY Rep #: [id number] : 1945 73 From: Quiana REVELES [place]: [place] Status: ADM IN Y Location: [facility] [id number] <Quiana Hanna - Last Filed: 05/25/18 12:53> Discharge Date and Diagnosis Date of Admission: 05/23/18 Date of Discharge: 05/25/18 - Primary Discharge Diagnosis Active and Suspected Problems 1. 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 Type 2 diabetes mellitus, poorly controlled 3. 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 Hypertension 5. TRICIA 6. Anxiety/depression 7. Obesity - Secondary Discharge Diagnosis Chronic Problems TRICIA (obstructive sleep apnea) (Chronic) Wound of foot (Chronic) Hyperlipidemia (Chronic) Diabetes mellitus, type 2 (Chronic) Benign essential hypertension (Chronic) Hospital Course and Treatment Imaging Results: Diagnostic Data Head CTA 05/23/18 22:08 IMPRESSION: Normal [place] without a demonstrated aneurysm or significant stenosis. Right maxillary sinusitis, uncertain chronicity. Electronically Signed: Kelsey Gutierrez MD at 23:26 EST Tel , Service support , Neck CTA 05/23/18 22:08 IMPRESSION: Normal bilateral cervical carotid and vertebral arteries. Right maxillary sinusitis. Electronically Signed: Kelsey Gutierrez MD at 22:41 EST Tel , Service support , Brain CT 05/23/18 22:09 IMPRESSION: 1. No acute process. 2. Microvascular ischemia. Atrophy. 3. Right maxillary sinusitis. Dr. Gutierrez discussed the findings with Dr. Chaney at 10:47 PM. N.B. : The above information has been verbally conveyed by Kelsey Gutierrez MD to Ruslan Chaney MD, MD, on 05/23/2018 22:47:33 (ET). Electronically Signed: Kelsey Gutierrez MD at 22:48 EST Tel , Service support , Chest X-Ray 05/23/18 22:09 IMPRESSION: Normal x-ray examination of the chest. Electronically Signed: Kelsey Gutierrez MD at 22:58 EST Tel , Service support , Brain MRI 05/24/18 00:19 Consultations 05/24/18 00:19 Consult: Onc/Wound/clinical research manager Routine Comment: Dr. Baker- Neurology Operations: None Procedures: 2-D Echocardiogram Summary of Care Provided: The patient is a 73 year old M admitted 05/23/2018 due to left facial droop. 1. 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 CT of head with normal [place], no significant stenosis. CT of neck with normal bilateral cervical carotid and vertebral arteries. MRI of brain without evidence of infarct. Echo completed, pending. Neurology consulted. Confirms Cruz's palsy. Patient discharged on valacyclovir 1000 mg 3 times daily for 1 week. Patient will complete prednisone taper of 60 mg for 5 days, 50 mg for 1 day, 40 mg for 1 day, 30 mill grams 1 day, 20 mill grams for 1 day, 10 mg 1 day. Artificial tears 4 times daily left eye. Tape left eye shut at night. [facility]. 2. Type 2 diabetes mellitus, poorly controlled-hemoglobin A1c 9.1%. Home insulin regimen increased. Further follow-up by primary care physician. 3. 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 Patient completed a course of doxycycline 05/24/2018. 4. Hypertension-stable, continue home regimen. 5. TRICIA-continue CPAP nightly. 6. Anxiety/depression-not on regimen. Encouraged outpatient follow-up. 7. Obesity-encouraged diet lifestyle modification. General: Alert, Oriented x3, Cooperative HEENT: Atraumatic, PERRLA, EOMI, Normocephalic Oral: Moist Mucosa Neck: Supple, No JVD, Negative Carotid Bruits Lungs: Clear to auscultation, Normal air movement Cardiovascular: Regular rate, Regular Rhythm, Normal S1, Normal S2, No murmurs Abdomen: Bowel Sounds Present, Soft, Non Tender, Non-Distended, Obese Extremities: No clubbing, No cyanosis, No edema, Capillary Refill Less than 3 Seconds Skin: No rashes, No breakdown, - - Right foot chronic wound, status post TMA. Dressing clean dry and intact. Musculoskeletal: No Tenderness to Palpation of Joints or Extremities Neurological: Cranial nerves II-XII grossly intact, - - Left- sided facial droop. Psych/Mental Status: Normal Affect, Appropriate Patient seen and examined prior to discharge. Physical assessment as noted above. Patient is stable for discharge with follow up recommendations as noted above. This patient was seen by ABDIRIZAK Aranda under the supervision of Dr. Blair. - Physical Exam Vital Signs Temp Pulse Resp BP Pulse Ox 97.7 F L 81 16 142/87 H 97 05/25/18 08:26 05/25/18 11:46 05/25/18 08:26 05/25/18 08:26 05/25/18 08:26 Oxygen Delivery Method Room Air Weight: 192 lb 7.417 oz Body Mass Index (BMI) 28.4 Finger Stick Blood Glucose 285 Intake and Output for Last 24 Hours Intake Total 2374 / 2374 1480 / 1480 Output Total 3840 / 3840 2074 / 5 Balance -1466 / -1466 -595 / -595 POC Glucose POC Glucose 292 H 243 H 233 H POC Glucose 151 H Discharge Diet: Carb Control Diet Discharge Activity: Return to Normal Activity Call your doctor if you observe: Shortness of breath, Dizziness, Fainting spells, Chest pain Home Medications: Medications to take at Discharge Glipizide [Glipizide ER] 5 mg PO BID 05/23/18 Insulin Regular, Human [Novolin R] See Protocol IJ TIDCM 05/23/18 Lisinopril [Zestril] 5 mg PO DAILY 05/23/18 Metformin HCl 500 mg PO BID 05/23/18 Insulin Aspart [Novolog Flexpen] 10 units SC TIDCM #0 05/25/18 Insulin NPH Human [Humulin N Pen] 25 units SC BID #0 05/25/18 Peg 400/Hypromellose/Glycerin [Artificial Tears] 1 drp LEFT EYE 4X/DAY #15 ml 05/25/18 Prednisone See Taper PO DAILY #33 tab 05/25/18 Valacyclovir HCl [Valacyclovir] 1,000 mg PO TID #21 tab 05/25/18 Following Prescrptions Were Given to Patient: Prednisone See Taper PO DAILY #33 tab Valacyclovir HCl [Valacyclovir] 1,000 mg PO TID #21 tab Peg 400/Hypromellose/Glycerin [Artificial Tears] 1 drp LEFT EYE 4X/DAY #15 ml Primary Care Physician: [facility] [Primary Care Provider] - Please follow up with your Primary Care Physician in: 1 Week Disposition: Home Minutes spent on discharge:: 35 Patient Condition:: Stable Medical Necessity - Tobacco Use Smoking Status: Never smoker Tobacco Use: Non-smoker Meaningful Use Info Meaningful Use Diagnoses (Choose all that apply): None applicable <Jacques Blair - Last Filed: 05/25/18 13:30> Discharge Date and Diagnosis - Secondary Discharge Diagnosis Chronic Problems TRICIA (obstructive sleep apnea) (Chronic) Wound of foot (Chronic) Hyperlipidemia (Chronic) Diabetes mellitus, type 2 (Chronic) Benign essential hypertension (Chronic) Hospital Course and Treatment Consultations 05/24/18 00:19 Consult: Onc/Wound/clinical research manager Routine Comment: Summary of Care Provided: The patient is a 73 year old M [] - Physical Exam Vital Signs Temp Pulse Resp BP Pulse Ox 97.7 F L 81 16 142/87 H 97 05/25/18 08:26 05/25/18 11:46 05/25/18 08:26 05/25/18 08:26 05/25/18 08:26 Oxygen Delivery Method Room Air Weight: 192 lb 7.417 oz Body Mass Index (BMI) 28.4 Finger Stick Blood Glucose 285 Intake and Output for Last 24 Hours Intake Total 2374 / 2374 1480 / 1480 Output Total 3840 / 3840 2075 / 2075 Balance -1466 / -1466 -595 / -595 POC Glucose POC Glucose 292 H 243 H 233 H POC Glucose 151 H Code Visit Addendum: Dr. Blair I personally examined the patient and reviewed the chart. I agree with the above. 73-year-old male who presented with left-sided facial droop and initially thought to be a CVA. 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 And recommended that he be discharged on acyclovir and a steroid taper. Patient is feeling better today and would like to go home. He will need to follow-up with his outpatient physician on discharge. Inpatient E AND M: [id number] Disch Hosp 05/25/18 1253 <Electronically signed by Quiana REVELES> Date Quiana NELSONC 05/25/18 1330<Electronically signed by Jacques Blair MD> Cosigner Signature (if applicable): Date Jacques Blair MD CC: ABDIRIZAK Hanna; [facility]; Jacques Blair MD Signed DISCHARGE INSTRUCTION Observed: 05/25/2018 Status: F Source: [place] 11:51 AM [facility] Medical Records Department [address] [place] [address] Instructions for Home/Discharge Instructions 05/25/18 1149 MR#: [id number] Acct: [id number] Name: SALLY KELSEY Rep #: [id number] : 1945 73 From: Quiana REVELES PCP: [facility], [place] Status: ADM IN - Discharge Diagnoses Current Active Problems: Current Active and Chronic Problems Cruz's palsy You will use the following diet at home:: Calorie/Carbohydrate Controlled (specify 1200, 1400, etc) Discharge Activity: Return to Normal Activity Call your doctor if you observe: Shortness of breath, Dizziness, Fainting spells, Chest pain Additional Instructions: Tape left eye shut at night or use eye patch on left eye. Allergies/Adverse Reactions: Allergies No Known Allergies Allergy (Verified 05/23/18 23:01) Medications to take at Discharge Glipizide [Glipizide ER] 5 mg PO BID 05/23/18 Insulin Regular, Human [Novolin R] See Protocol IJ TIDCM 05/23/18 Lisinopril [Zestril] 5 mg PO DAILY 05/23/18 Metformin HCl 500 mg PO BID 05/23/18 Insulin Aspart [Novolog Flexpen] 10 units SC TIDCM #0 05/25/18 Insulin NPH Human [Humulin N Pen] 25 units SC BID #0 05/25/18 Peg 400/Hypromellose/Glycerin [Artificial Tears] 1 drp LEFT EYE 4X/DAY #15 ml 05/25/18 Prednisone See Taper PO DAILY #33 tab 05/25/18 Valacyclovir HCl [Valacyclovir] 1,000 mg PO TID #21 tab 05/25/18 The following prescriptions were given: Prednisone See Taper PO DAILY #33 tab Valacyclovir HCl [Valacyclovir] 1,000 mg PO TID #21 tab Peg 400/Hypromellose/Glycerin [Artificial Tears] 1 drp LEFT EYE 4X/DAY #15 ml Primary Care Physician: [facility] [Primary Care Provider] - Please follow up with your Primary Care Physician in: 1 Week Test Results: Test results from this visit will be discussed in further detail at your follow-up appointment, if applicable. Proposed Discharge Date: 05/25/18 05/25/18 1151 <Electronically signed by Quiana REVELES> Date Quiana REVELES CC: Jitendra Gabriel MD; [facility] Signed BEDSIDE GLUCOSE Collected: 05/25/2018 Status: F Source: [place] 11:09 AM [facility] TYPE CODE TESTS RESULT OUT OF REFERENCE UNITS RANGE LAB L501.080 70-110 mg/dL High BEDSIDE GLU 292 Result Comment: MANAGEMENT OF PATIENT CARE PER NURSING PROTOCOL Performed By: #### L501.080 #### [facility] Point of Care [address] [place] [address] 12 LEAD ELECTROCARDIOGRAM Observed: 05/25/2018 Status: F Source: [place] 8:44 AM [facility] Cardiovascular Services [address] [place] [address] 12 Lead EKG 05/23/18 2224 MR#: [id number] Acct: [id number] Name: SALLY KELSEY Rep #: [id number] : 1945 73 From: Sunny Gale MD Attending Dr: Jacques Blair MD Status: ADM IN Ordering Dr: Ruslan Chaney DO Date: 05/23/18 Location: [facility] Sex: M C Admitted: 05/23/18 Test Reason : WEAKNESS Blood Pressure : / mmHG Vent. Rate : 075 BPM Atrial Rate : 075 BPM P-R Int : 196 ms QRS Dur : 082 ms QT Int : 374 ms P-R-T Axes : -02 -27 039 degrees QTc Int : 417 ms Normal sinus rhythm Minimal voltage criteria for LVH, may be normal variant Septal infarct , age undetermined Abnormal ECG Confirmed by BINDU RICE, SUNNY ([id number]), rewrite editor MODESTO MARQUES ([id number]) on 05/25/2018 8:43:44 AM Referred By: Sylwia Up Confirmed By:SUNNY GALE MD 05/25/18 0843 Date Sunny Gale MD CC: [facility]; Sylwia Up; Jacques Blair MD; Ruslan Chaney DO Signed BEDSIDE GLUCOSE Collected: 05/25/2018 Status: F Source: MARQUEZ 6:32 AM [facility] TYPE CODE TESTS RESULT OUT OF REFERENCE UNITS RANGE LAB L501.080 70-110 mg/dL High BEDSIDE GLU 243 Result Comment: MANAGEMENT OF PATIENT CARE PER NURSING PROTOCOL Performed By: #### L501.080 #### [facility] Point of Care [address] [place] [address] BEDSIDE GLUCOSE Collected: 05/24/2018 Status: F Source: MARQUEZ 9:42 PM [facility] TYPE CODE TESTS RESULT OUT OF REFERENCE UNITS RANGE LAB L501.080 70-110 mg/dL High BEDSIDE GLU 233 Result Comment: MANAGEMENT OF PATIENT CARE PER NURSING PROTOCOL Performed By: #### L501.080 #### [facility] Point of Care [address] [place] [address] BEDSIDE GLUCOSE Collected: 05/24/2018 Status: F Source: MARQUEZ 4:39 PM [facility] TYPE CODE TESTS RESULT OUT OF REFERENCE UNITS RANGE LAB L501.080 70-110 mg/dL High BEDSIDE GLU 151 Result Comment: MANAGEMENT OF PATIENT CARE PER NURSING PROTOCOL Performed By: #### L501.080 #### [facility] Point of Care [address] [place], [place] [address] BEDSIDE GLUCOSE Collected: 05/24/2018 Status: F Source: MARQUEZ 10:55 AM [facility] TYPE CODE TESTS RESULT OUT OF REFERENCE UNITS RANGE LAB L501.080 70-110 mg/dL High BEDSIDE GLU 239 Result Comment: MANAGEMENT OF PATIENT CARE PER NURSING PROTOCOL Performed By: #### L501.080 #### [facility] Point of Care [address] [place] [address] BEDSIDE GLUCOSE Collected: 05/24/2018 Status: F Source: MARQUEZ 6:47 AM [facility] TYPE CODE TESTS RESULT OUT OF REFERENCE UNITS RANGE LAB L501.080 70-110 mg/dL High BEDSIDE GLU 123 Result Comment: MANAGEMENT OF PATIENT CARE PER NURSING PROTOCOL Performed By: #### L501.080 #### [facility] Point of Care [address] [place], [place] [address] CBC W/DIFF, AUTOMATED Collected: 05/24/2018 Status: F Source: MARQUEZ 5:15 AM [facility] TYPE CODE TESTS RESULT OUT OF RANGE REFERENCE UNITS LAB L100.1000 4.4-11.0 K/mm3 Normal WBC 10.4 LAB L100.1200 4.6-6.2 M/mm3 Low RBC 4.22 LAB L100.1300 13.0-16.5 g/dl Low HGB 12.1 LAB L100.1400 40-54 % Low HCT 36.8 LAB L100.1500 80-94 fL Normal MCV 87.2 LAB L100.1600 27.0-32.0 pg Normal MCH 28.7 LAB L100.1700 32-36 g/gl Normal MCHC 32.9 LAB L100.1810 11.6-14.6 % Normal RDW CV 13.2 LAB L100.1820 35.1-43.9 fl Normal RDW SD 41.9 LAB L100.1900 150-450 K/mm3 Normal PLT 213 LAB L100.2000 6.2-12.0 fl Normal MPV 9.9 LAB L100.2100 47-70 % Normal NEUT% 55.0 LAB L100.2200 19-41 % Normal LY% 30.6 LAB L100.2300 0-10 % Normal MONO% 9.9 LAB L100.2400 0-5 % Normal EO% 4.1 LAB L100.2500 0-1 % Normal BASO% 0.3 LAB L100.2550 0.0-0.9 % Normal IM GRAN % 0.100 Result Comment: IG% - Immature Granulocytes (promyelocytes, myelocytes and metamyelocytes) > 1% indicates that a LEFT SHIFT is Present. LAB L100.2620 2.0-7.7 X10 3/uL Normal Absolute Neut 5.7 LAB L100.2720 0.83-4.51 X10 3/ul Normal Absolute Lymph 3.17 Performed By: #### L100.0100 #### [facility] [address] [place], [address] BASIC METABOLIC Collected: 05/24/2018 Status: F Source: PATRIOT PROFILE (BMP) 5:15 AM [facility] TYPE CODE TESTS RESULT OUT OF RANGE REFERENCE UNITS LAB L501.0100 74-106 mg/dL High GLU 123 Result Comment: Fasting Glucose result from 100 to 125 mg/dL suggests IMPAIRED HOMEOSTASIS per A.D.A. criteria. Please note revised GLUCOSE reference range effective 2017. LAB L501.1000 7-18 mg/dL Normal BUN 13 LAB L501.1100 0.70-1.30 mg/dL Normal CREAT,SERUM 0.84 Result Comment: The validity of the calculated GFR AND GFRAA in patients over 70 years has not been determined. Clinical correlation is essential. LAB L501.1110 >60 mL/min Normal EST GFR 95 Result Comment: Non- GFR Calc LAB L501.1115 >60 mL/min Normal EST GFR - AA 115 Result Comment: GFR Calc LAB L501.1255 ml/min Normal Estimated CRCL 80.66 LAB L501.1300 10-20 RATIO Normal BUN/CRE 15.4 LAB L501.2200 8.5-10 mg/dL Low .1 CA 8.0 LAB L501.5300 136-14 mmol/L Normal 5 NA 142 LAB L501.5600 3.5-5. mmol/L Normal 1 K 3.7 LAB L501.5900 98-107 mmol/L High CL 109 LAB L501.6100 21.0-3 mmol/L Normal 2.0 CO2 24.0 LAB L501.6200 5-15 Normal GAP 9 Performed By: #### L500.2500, L500.4100 #### [facility] [address] [place], [address] LIPID PROFILE Collected: 05/24/2018 Status: F Source: PATRIOT 5:15 AM [facility] TYPE CODE TESTS RESULT OUT OF RANGE REFERENCE UNITS LAB L501.4900 200 mg/dL Normal CHOL 122 Result Comment: <200 mg/dL Desirable 200-240 mg/dL Borderline >240 mg/dL High Risk LAB L501.5000 mg/dL Normal TRIG 128 Result Comment: The drugs N-Acetylcysteine and Metamizole may falsely depress this assay. Serum Triglycerides Reference Interval Normal <150 mg/dL Borderline high 150 - 199 mg/dL High 200 - 499 mg/dL Very High > or = 500 mg/dL LAB L501.6400 mg/dL Low HDL 35 Result Comment: The drugs N-Acetylcysteine and Metamizole may falsely depress this assay. Reference Range HDL <40 mg/dL Low HDL Cholesterol HDL >or= 60 mg/dL High HDL Cholesterol LAB L501.6500 0-130 mg/dL Normal LDL 61 LAB L501.6600 5-40 mg/dL Normal VLDL 26 Performed By: #### L500.2500, L500.4100 #### [facility] [address] [place], [address] HISTORY AND PHYSICAL Observed: 05/24/2018 Status: F Source: PATRIOT EXAM 12:31 AM [facility] Medical Records Department [address] [address] History and Physical 05/23/18 2331 MR#: [id number] Acct: [id number] Name: SALLY KELSEY Rep #: [id number] : 1945 73 From: Sylwia Up PCP: [facility] [place] Status: ADM IN Y Location: [facility] [id number] Problem List (1) CVA (cerebral vascular accident) Status: Acute Qualifiers: CVA mechanism: unspecified Qualified Code(s): I63.9 - Cerebral infarction, unspecified (2) TRICIA (obstructive sleep apnea) Status: Chronic (3) Wound of foot Status: Chronic (4) Hyperlipidemia Status: Chronic Qualifiers: Hyperlipidemia type: pure hypercholesterolemia Qualified Code(s): E78.00 - Pure hypercholesterolemia, unspecified; E78.0 - Pure hypercholesterolemia (5) Diabetes mellitus, type 2 Status: Chronic Qualifiers: Diabetes mellitus manager intermediate insulin use: with residential use Diabetes mellitus complication status: with unspecified complications Qualified Code(s): E11.8 - Type 2 diabetes mellitus with unspecified complications; Z79.4 - buttermaker continuous churn (current) use of insulin (6) Benign essential hypertension Status: Chronic History of Present Illness Date of Admission: 05/23/18 Chief Complaint: Facial droop, dysarthria The patient is a 73 y/o M w/ PMHx: HTN, HLD, TRICIA, Anxiety and Depression, Diabetes mellitus type II, Obesity, Chronic R Foot Wound s/p TMA and follow- up debridement w/ ongoing wet-->dry dressings who presents to the [facility] ED on 05/23/18 with history of onset left facial droop and mild to moderate dysarthria starting possibly after 6:30-7 pm as last noted normal per daughter with following this noted changes w/ EMS call. She notes she had performed his dressing around 6:30-7 pm and upon looking up did not noted any facial droop at that time thus the onset came after the dressing changes she notes. She did state that he did complaint of mild L eye irritation with some tearing starting 2 days prior but there was no accompanying discharge or scleral redness. In the ED work-up included T 97.8, heart rate 72, BP initially 182/91, respiratory rate 16, 98% on room air-->BP 145/78, unremarkable CBC, unremarkable coags, unremarkable BMP aside glucose 232, troponin 0 0.019, chest x-ray unremarkable, CT brain with no acute process with microvascular ischemia, atrophy and right maxillary sinusitis of uncertain chronicity, CTA head within normal [place] without a demonstrated aneurysm or significant stenosis with right maxillary sinusitis of uncertain chronicity, CTA neck with normal bilateral cervical carotid and vertebral arteries with right maxillary sinusitis of uncertain chronicity. Past Medical History Past Medical History (Chronic Problems): Chronic Problems TRICIA (obstructive sleep apnea) (Chronic) Wound of foot (Chronic) Hyperlipidemia (Chronic) Diabetes mellitus, type 2 (Chronic) Benign essential hypertension (Chronic) Allergies No Known Allergies Allergy (Verified 05/23/18 23:01) Home Medications: Ambulatory Orders Medication Instructions Recorded Surgical History: - - Right foot surgery x2, initially TMA in 2004 and recent follow-up surgical intervention. Psychiatric History: Anxiety, Depression Lives: With Family - Patient is currently residing with his daughter following recent surgical intervention for the last several months per [place] recommendation. Smoking Status: Never smoker Tobacco Use: Non-smoker Alcohol: None Drugs: None - *Family History Maternal History Items: Diabetes Paternal History Items: COPD Review of Systems Constitutional: Reports: Malaise, Weakness, Fatigue. Denies: Chills, Fever, Weight Change Eyes: Reports: - - L eye discomfort, irritation. HEENT: Denies: Head Aches, Sinus Congestion, Sinus Drainage Cardiovascular: Denies: Chest Pain, Palpitations Respiratory: Denies: Cough, Shortness of breath at rest, Sputum production Gastrointestinal: Denies: Abdominal Pain, Nausea, Vomiting Genitourinary: Denies: Dysuria Musculoskeletal: Denies: Joint Pain, Joint Tenderness Skin: Reports: Skin Changes, Wounds. Denies: Rash Neurological: Reports: Slurred speech, Focal weakness. Denies: Numbness, Tingling Psychiatric: Reports: Anxiety, Depression. Denies: Homicidal Ideations, Suicidal Ideations Hematologic/ Lymphatic: Denies: Easy Bruising, Easy Bleeding VTE Information - Inpt Only VTE Present on Admission: No VTE Mechan Device Prophylaxis: SCD's VTE Pharm Prophylaxis ordered?: Yes Patient Problems: Active and Suspected Problems CVA (cerebral vascular accident) (Acute) Subjective: Seated upright in the ED bed, no acute distress, daughter present and notes that left facial droop is similar to the initial onset appearance. Objective: Physical Examination: General: awake, alert, oriented x 3 and cooperative, seated upright in the ED bed in no apparent distress. Skin: normal color, turgor, no icterus, cyanosis except noted right foot chronic wound at the TMA region on the right lateral side with decent granulation tissue, no erythema, no foul odor. HEENT: AT/NC, EOMI, PERRLA, mildly dry MM, no carotid bruits or JVD noted, left-sided facial droop, inclusive of forehead. Lungs: CTA bilaterally, moderate effort, mild decrease BL bases, no rales, ronchi or wheezing. Heart: Regular rate and rhythm; no gallop, rub audible. Abdomen: soft, obese, NTTP, ND, normal BS, no HSM. Extremities: no cyanosis, clubbing, or edema. Neurological: patient awake, alert, oriented x 3; cognitive function intact; pupils equally reactive to light and accomodation; cranial nerves II-XII grossly normal, moving all 4 extremities, no focal deficits, strength preserved, mild tremor bilaterally which daughter notes is chronic, finger to nose and heel to luna normal bilaterally, negative Babinski, sensation intact. Psychiatric: affect appears normal, no acute evidence of depressive or anxiety feelings. - Physical Exam Vital Signs Temp Pulse Resp BP Pulse Ox 98 F 87 22 H 145/78 H 98 05/23/18 23:09 05/23/18 23:09 05/23/18 23:09 05/23/18 23:09 05/23/18 23:09 Oxygen Delivery Method Room Air Weight: 210 lb 1.608 oz Body Mass Index (BMI) 31.0 Finger Stick Blood Glucose 285 Laboratory Tests Past 24 Hrs POC Glucose POC Glucose 285 H Assessment/Plan All Active Problems CVA (cerebral vascular accident) (Acute) The patient is a 73 y/o M w/ PMHx: HTN, HLD, TRICIA, Anxiety and Depression, Diabetes mellitus type II, Obesity, Chronic R Foot Wound s/p TMA and follow- up debridement w/ ongoing wet-->dry dressings who presents to the [facility] ED on 05/23/18 with history of onset left facial droop and mild to moderate dysarthria starting possibly after 6:30-7 pm as last noted normal per daughter with following this noted changes w/ EMS call. (1) L sided facial droop, dysarthria concerning for CVA: ED work-up included T 97.8, heart rate 72, BP initially 182/91, respiratory rate 16, 98% on room air-->BP 145/78, unremarkable CBC, unremarkable coags, unremarkable BMP aside glucose 232, troponin 0 0.019, chest x-ray unremarkable, CT brain with no acute process with microvascular ischemia, atrophy and right maxillary sinusitis of uncertain chronicity, CTA head within normal [place] without a demonstrated aneurysm or significant stenosis with right maxillary sinusitis of uncertain chronicity, CTA neck with normal bilateral cervical carotid and vertebral arteries with right maxillary sinusitis of uncertain chronicity. Will admit to PCU, will obtain MRI Brain, ECHO, PT/OT/Speech/Nutrition evaluation per protocol. Will consult Neurology for evaluation. Will allow permissive HTN, maintain on asa, add high dose statin w/ AM FLP, fall precautions. Mag, TSH pending. (2) Diabetes mellitus type II: Hold oral home regimen, HgBA1c pending, continue home insulin regimen, ADA diet, accu checks w/ ISS, nutrition consultation for education and teaching. (3) Hypertension: We will continue permissive hypertension with IV as needed agents. (4) Hyperlipidemia: Add high dose statin, FLP in AM. (5) Anxiety and depression: Patient is not on regimen but does admit to anxiety and depression, encourage follow-up with the [place]. (6) Chronic right foot wound: Patient is status post TMA, has had follow-up surgical debridement of this region, will continue wet-to-dry dressings, continue doxycycline regimen recently rx 1 week prior for concern for cellulitis, wound RN consultation. (7) TRICIA: Continue CPAP nightly. Patient states he has not been using his CPAP machine at home secondary to concerns that there is debris in the tubing. Recommend case management involvement to assure equipment is assessed. (8) Obesity: Weight loss and lifestyle changes encouraged. (9) DVT prophylaxis: SCD, Lovenox. Code Visit Inpatient E AND M: [id number] Init Hosp L3 05/24/18 0031 <Electronically signed by Sylwia Up > Date Sylwia Up Cosigner Signature: Date (if applicable) CC: [facility]; Sylwia Up Signed BRAIN WITHOUT Observed: 05/24/2018 Status: F Source: MARQUEZ CONTRAST 12:25 AM [facility] Imaging Services [address] [place] [address] Brain without Contrast MR#: [id number] Acct: [id number] Name: SALLY KELSEY Rep #: [id number] : 1945 M 73 From: Valerio Schultz MD PCP: [facility] [place] Status: ADM IN Study: Brain without Contrast Date of Exam: 05/24/18 Exam# [id number] Ordering Dr: Sylwia Up STUDY: MRI BRAIN WITHOUT CONTRAST REASON FOR EXAM: Male, 73 years old. CVA TECHNIQUE: Standardized multiplanar fat and water weighted pulse sequences were obtained. COMPARISON: May 23, 2018 CT brain FINDINGS: No evidence for shift of midline structures, mass effect or compression of ventricles. No evidence for intracranial hemorrhage seen. The ventricular system appears unremarkable. The basal cisterns are patent. Posterior fossa structures demonstrate no discrete mass. Patchy and confluent foci of T2/FLAIR hyperintensity in the periventricular and subcortical white matter which are nonspecific in imaging appearance however likely related with chronic small vessel disease. Chronic small vessel disease of the brain stem also seen. Pituitary stalk and optic chiasm are within normal limits. Corpus callosum demonstrates no significant atrophy. Age-related involutional changes. Complete opacification of the right maxillary sinus and partial opacification of the ethmoid air cells. Please consider direct visual inspection. Sinusitis is a diagnostic consideration. IMPRESSION: No evidence for acute or subacute ischemic insult. No evidence for intracranial mass. No evidence for acute intracranial hemorrhage. Chronic small vessel disease. Complete opacification of the right maxillary sinus and partial opacification of the ethmoid air cells. Please consider direct visual inspection. Sinusitis is a diagnostic consideration. Electronically Signed: Valerio Schultz, at 12:56 EST Tel , Service support , MRI/Brain without Contrast CC: [facility]; Sylwia Up Child Care Associate Teacher: Signed CBC W/DIFF, AUTOMATED Collected: 05/23/2018 Status: F Source: MARQUEZ 10:50 PM [facility] TYPE CODE TESTS RESULT OUT OF RANGE REFERENCE UNITS LAB L100.1000 4.4-11.0 K/mm3 Normal WBC 10.0 LAB L100.1200 4.6-6.2 M/mm3 Normal RBC 4.63 LAB L100.1300 13.0-16.5 g/dl Normal HGB 13.3 LAB L100.1400 40-54 % Normal HCT 40.5 LAB L100.1500 80-94 fL Normal MCV 87.5 LAB L100.1600 27.0-32.0 pg Normal MCH 28.7 LAB L100.1700 32-36 g/gl Normal MCHC 32.8 LAB L100.1810 11.6-14.6 % Normal RDW CV 13.1 LAB L100.1820 35.1-43.9 fl Normal RDW SD 41.6 LAB L100.1900 150-450 K/mm3 Normal PLT 177 LAB L100.2000 6.2-12.0 fl Normal MPV 9.9 LAB L100.2100 47-70 % Normal NEUT% 63.8 LAB L100.2200 19-41 % Normal LY% 24.8 LAB L100.2300 0-10 % Normal MONO% 7.8 LAB L100.2400 0-5 % Normal EO% 2.9 LAB L100.2500 0-1 % Normal BASO% 0.4 LAB L100.2550 0.0-0.9 % Normal IM GRAN % 0.300 Result Comment: IG% - Immature Granulocytes (promyelocytes, myelocytes and metamyelocytes) > 1% indicates that a LEFT SHIFT is Present. LAB L100.2620 2.0-7.7 X10 3/uL Normal Absolute Neut 6.4 LAB L100.2720 0.83-4.51 X10 3/ul Normal Absolute Lymph 2.48 Performed By: #### L100.0100 #### [facility] [address] [place], [place], [id number] PROTHROMBIN TIME W/INR Collected: 05/23/2018 Status: F Source: PATRIOT 10:50 PM [facility] TYPE CODE TESTS RESULT OUT OF RANGE REFERENCE UNITS LAB L300.4150 11.7-14.9 SECONDS Normal PROTIME 14.0 LAB L300.4200 Normal INR 1.1 Performed By: #### L300.3900, L300.4310 #### [facility] [address] [place], [address] PARTIAL THROMBOPLAST Collected: 05/23/2018 Status: F Source: MARQUEZ TIME 10:50 PM [facility] TYPE CODE TESTS RESULT OUT OF RANGE REFERENCE UNITS LAB L300.4310 24.1-36.2 Seconds Normal PTT 25.4 Performed By: #### L300.3900, L300.4310 #### [facility] [address] [place], [address] BASIC METABOLIC Collected: 05/23/2018 Status: F Source: PATRIOT PROFILE (BMP) 10:50 PM [facility] TYPE CODE TESTS RESULT OUT OF RANGE REFERENCE UNITS LAB L501.0100 74-106 mg/dL High GLU 232 Result Comment: Glucose result greater than or equal to 200 mg/dL suggests DIABETES MELLITUS per A.D.A. criteria. Please note revised GLUCOSE reference range effective 2017. LAB L501.1000 7-18 mg/dL Normal BUN 17 LAB L501.1100 0.70-1.30 mg/dL Normal CREAT,SERUM 1.02 Result Comment: The validity of the calculated GFR AND GFRAA in patients over 70 years has not been determined. Clinical correlation is essential. LAB L501.1110 >60 mL/min Normal EST GFR 77 Result Comment: Non- GFR Calc LAB L501.1115 >60 mL/min Normal EST GFR - AA 93 Result Comment: GFR Calc LAB L501.1255 ml/min Normal Estimated CRCL 66.43 LAB L501.1300 10-20 RATIO Normal BUN/CRE 16.7 LAB L501.2200 8.5-10 mg/dL Low .1 CA 8.3 LAB L501.5300 136-14 mmol/L Normal 5 NA 136 LAB L501.5600 3.5-5. mmol/L Normal 1 K 3.9 LAB L501.5900 98-107 mmol/L Normal CL 104 LAB L501.6100 21.0-3 mmol/L Normal 2.0 CO2 25.0 LAB L501.6200 5-15 Normal GAP 7 Performed By: #### L500.2500, L501.4010 #### [facility] [address] [place], [address] TROPONIN-I Collected: 05/23/2018 Status: F Source: MARQUEZ 10:50 PM [facility] TYPE CODE TESTS RESULT OUT OF RANGE REFERENCE UNITS LAB L501.4010 <0.045 ng/mL Normal 0.019 TROPONIN-I Result Comment: TROPONIN-I EXPECTED VALUES <0.045 Negative 0.045 - 0.590 Consistent with Cardiac Damage > OR = 0.600 Critical Value Not every elevated troponin is indicative of WA. These values should be used with clinical judgement in examining the patient's clinical picture for diagnosis. To establish a diagnosis of WA versus myocardial injury, there must be a demonstrated rise and/or fall in the troponin values, in addition to ischemic symptoms, EKG changes, new regional wall motion abnormality, and/or angiographical evidence. PLEASE NOTE: REFERENCE RANGES EDITED 17 Performed By: #### L500.2500, L501.4010 #### [facility] [address] [place], [address] MAGNESIUM Collected: 05/23/2018 Status: F Source: PATRIOT 10:50 PM [facility] TYPE CODE TESTS RESULT OUT OF RANGE REFERENCE UNITS LAB L501.5200 1.6-2.6 mg/dL Normal MG 1.8 Performed By: #### L501.5200, L501.9520 #### [facility] [address] [place], [address] THYROID STIM HORMONE Collected: 05/23/2018 Status: F Source: PATRIOT (TSH) 10:50 PM [facility] TYPE CODE TESTS RESULT OUT OF RANGE REFERENCE UNITS LAB L501.9520 0.358-3.74 uIU/mL Normal TSH 2.79 Performed By: #### L501.5200, L501.9520 #### [facility] [address] [place], [address] HEMOGLOBIN A1C Collected: 05/23/2018 Status: F Source: MARQUEZ 10:50 PM [facility] TYPE CODE TESTS RESULT OUT OF RANGE REFERENCE UNITS LAB L501.9985 4.2-6.3 % High HGB A1C 9.1 Performed By: #### L501.9985 #### [facility] [address] [place], [address] CTA NECK W/WO Observed: 05/23/2018 Status: F Source: MARQUEZ CONTRAST 10:11 PM [facility] Imaging Services [address] [place] [address] CTA Neck W/WO Contrast MR#: [id number] Acct: [id number] Name: SALLY KELSEY Rep #: [id number] : 1945 M 73 From: Kelsey Gutierrez MD PCP: Status: PRE ER Study: CTA Neck W/WO Contrast Date of Exam: 05/23/18 Exam# [id number] Ordering Dr: Ruslan Chaney DO STUDY: CTA NECK WITH CONTRAST REASON FOR EXAM: Male, 73 years old. CVA. RADIATION DOSAGE (If Supplied By Facility): CTDIvol = ( 19.43 ) mGy, DLP = ( 763.31 ) mGycm TECHNIQUE: CT angiography with multi-detector data acquisition was performed from the aortic arch to the skull base following intravenous administration of 100 ml of Isovue 370 contrast. MIP images were reconstructed from the axial data set. Post-processing of the angiographic images was performed, with multiplanar reformation and 3D reconstruction. Individualized dose optimization techniques were used for this CT. COMPARISON: None. FINDINGS: AORTIC ARCH: Normal visualized aortic arch. Normal origins of the brachiocephalic, left common carotid, and left subclavian arteries. RIGHT CAROTID ARTERIES: Normal right common carotid artery (CCA). Normal right common carotid bulb. There is mild atherosclerotic plaque formation of the origin of the right internal carotid artery with no stenosis. Normal visualized cervical portion of the right internal carotid artery. Normal origin of the right external carotid artery (ECA). LEFT CAROTID ARTERIES: Normal left common carotid artery (CCA). Normal left common carotid bulb. Normal origin of the left internal carotid (ICA) artery without a hemodynamically significant stenosis. Normal visualized cervical portion of the left internal carotid artery. Normal origin of the left external carotid artery (ECA). VERTEBRAL ARTERIES: Normal bilateral vertebral arteries. Moderate degenerative changes of the cervical spine are noted. There is complete opacification of the right maxillary sinus. CT/CTA Neck W/WO Contrast IMPRESSION: Normal bilateral cervical carotid and vertebral arteries. Right maxillary sinusitis. Electronically Signed: Kelsey Gutierrez MD at 22:41 EST Tel , Service support , CC: Ruslan Chaney DO Child Care Associate Teacher: Signed BRAIN/HEAD WITHOUT Observed: 05/23/2018 Status: F Source: PATRIOT CONTRAST 10:11 PM [facility] Imaging Services [address] [place] [id number] Brain/Head without Contrast MR#: [id number] Acct: [id number] Name: SALLY KELSEY Rep #: [id number] : 1945 73 From: Kelsey Gutierrez MD PCP: [facility], [place] Status: REG ER Study: Brain/Head without Contrast Date of Exam: 05/23/18 Exam# [id number] Ordering Dr: Ruslan Chaney DO STUDY: CT BRAIN WITHOUT CONTRAST REASON FOR EXAM: Male, 73 years old. Stroke alert. RADIATION DOSAGE (If Supplied By Facility): CTDIvol = ( 44.99 ) mGy, DLP = ( 812.98 ) mGycm TECHNIQUE: Transaxial CT imaging of the brain was performed without administration of intravenous contrast material. Individualized dose optimization techniques were used for this CT. COMPARISON: None. FINDINGS: Normal soft tissue structures. Normal calvarium. There is moderate cerebral atrophy with widening of the extra- axial spaces and ventricular dilatation. There are areas of decreased attenuation within the white matter tracts of the supratentorial brain, consistent with microvascular disease changes. Normal basal ganglia and thalami. Normal brainstem. Normal cerebellum. There is no intracranial hemorrhage. There are no findings of an acute ischemic infarction. The right maxillary sinus is opacified. Remaining paranasal and mastoid sinuses are clear. CT/Brain/Head without Contrast IMPRESSION: 1. No acute process. 2. Microvascular ischemia. Atrophy. 3. Right maxillary sinusitis. Dr. Gutierrez discussed the findings with Dr. Chaney at 10:47 PM. N.B. : The above information has been verbally conveyed by Kelsey Gutierrez MD to Ruslan Chaney MD , , on 05/23/2018 22:47:33 (ET). Electronically Signed: Kelsey Gutierrez MD at 22:48 EST Tel , Service support , CC: [facility]; Ruslan Chaney DO Child Care Associate Teacher: Signed CHEST 1 VIEW Observed: 05/23/2018 Status: F Source: PATRIOT 10:11 PM [facility] Imaging Services [address] [place] [id number] Chest 1 View MR#: [id number] Acct: [id number] Name: SALLY KELSEY Rep #: [id number] : 1945 M 73 From: Kelsey Gutierrez MD PCP: [place], [place] Status: REG ER Study: Chest 1 View Date of Exam: 05/23/18 Exam# [id number] Ordering Dr: Ruslan Chaney DO STUDY: X-RAY CHEST REASON FOR EXAM: Male, 73 years old. Weakness, SOB. TECHNIQUE: Portable chest. COMPARISON: None. FINDINGS: The lungs are clear and expanded. There is no demonstrated pleural abnormality. Normal size heart. Normal mediastinum and ibeth. Normal visualized pulmonary arteries. Normal visualized aortic arch and descending thoracic aorta. Normal visualized thoracic spine. Normal visualized ribs, clavicles, and shoulders. There is no demonstrated abnormality of the visualized soft tissue structures of the upper abdomen. RAD/Chest 1 View IMPRESSION: Normal x-ray examination of the chest. Electronically Signed: Kelsey Gutierrez MD at 22:58 EST Tel , Service support , CC: [facility]; Ruslan Chaney DO Child Care Associate Teacher: Signed CTA HEAD W/WO Observed: 05/23/2018 Status: F Source: MARQUEZ CONTRAST 10:11 PM [facility] Imaging Services [address] [place] [address] CTA Head W/WO Contrast MR#: [id number] Acct: [id number] Name: SALLY KELSEY Rep #: [id number] : 1945 M 73 From: Kelsey Gutierrez MD PCP: [place], [place] Status: REG ER Study: CTA Head W/WO Contrast Date of Exam: 05/23/18 Exam# [id number] Ordering Dr: Ruslan Chaney DO STUDY: CTA OF THE BRAIN REASON FOR EXAM: Male, 73 years old. CVA. RADIATION DOSAGE (If Supplied By Facility): CTDIvol = ( ) mGy, DLP = ( ) mGycm TECHNIQUE: CT angiography was performed with a multi-detector CT scanner. Data acquisition was obtained from the skull base through the vertex following intravenous administration of ml of . MIP images were reconstructed from the axial data set. Post-processing of the angiographic images was performed, with multiplanar reformation and 3D reconstruction. Individualized dose optimization techniques were used for this CT. COMPARISON: None. FINDINGS: Normal bilateral petrous carotid arteries. Normal right cavernous carotid artery with a normal supraclinoid bifurcation. Normal left cavernous carotid artery with a normal supraclinoid bifurcation. Normal right A1 segments of the anterior cerebral artery. Normal left A1 segments of the anterior cerebral artery. Normal intact anterior communicating artery (ACOM). Normal bilateral A2 segments of the anterior cerebral arteries. Normal right M1 and M2 segments of the middle cerebral arteries, with a normal M1 bifurcation. Normal left M1 and M2 segments of the middle cerebral arteries, with a normal M1 bifurcation. There is a persistent origin of the right posterior cerebral artery with absence of the P1 segment of the right posterior cerebral artery. Hypoplastic or aplastic left posterior communicating artery. There is atherosclerotic calcification of the intracranial vertebral arteries. There is mild atherosclerotic narrowing bilaterally. Normal basilar artery with a normal basilar bifurcation. The visualized bilateral superior cerebellar (SCA) arteries are normal. 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 Normal bilateral P2 and visualized P3 segments of the posterior cerebral arteries. There is no demonstrated aneurysm of the [place]. There is opacification of the right maxillary sinus. CT/CTA Head W/WO Contrast IMPRESSION: Normal [place] without a demonstrated aneurysm or significant stenosis. Right maxillary sinusitis, uncertain chronicity. Electronically Signed: Kelsey Gutierrez MD at 23:26 EST Tel , Service support , CC: [facility]; [facility] Child Care Associate Teacher: Signed BEDSIDE GLUCOSE Collected: 05/23/2018 Status: F Source: MARQUEZ 10:07 PM [facility] TYPE CODE TESTS RESULT OUT OF REFERENCE UNITS RANGE LAB L501.080 70-110 mg/dL High BEDSIDE GLU 285 Result Comment: MANAGEMENT OF PATIENT CARE PER NURSING PROTOCOL Performed By: #### L501.080 #### [facility] Laboratory Point of Care [place], [place] [address] ALLERGIES ALLERGIES DATE TYPE / CODE NAME / CODE REACTION SEVERITY SOURCE 05/23/2018 Drug No Known Unknown [facility] Allergy/4160 Allergies/F00 Hospital 93585(SNOMED 2098054(RXNOR Repository CT) M) ENCOUNTERS ENCOUNTERS ADMIT/DISCHARGE ACCOUNT ADMITTING ENCOUNTER LOCATION SOURCE NUMBER CLASS 05/23/2018/ [id number] [facility], Sylwia Inpatient Marquez Marquez 9 7 Encounter [facility] ing:PCURoom: Repository [id number]: 1 05/23/2018 [id number] [place], [place] [facility] Repository 05/23/2018 [id number] [place], [place] [facility] Repository 05/23/2018 [id number] [facility], [place] [facility] Repository PAYERS PAYERS ENCOUNTER GUARANTOR PAYER SUBSCRIBER SOURCE 05/23/2018 GALE E Primary [place] GALE E [place] [id number] [facility] METSKERDOB: [facility] Number: [id number] [id number] Repository 14275Vat: 330) Date:[id number] [id number] () SERVICE [id number] [place], [place] [address]IK: [phone] X2003 05/23/2018 Secondary GALE E Marquez Insurance:MEDICARE METSKERDOB: [facility] [id number] Hospital Number: Repository [id number] Date:2018-05-23 05/23/2018 Tertiary NOT GIVENUNK Marquez Insurance:SELF PAY [facility] Number: Effective Repository Date:2018-05-23 05/23/2018 GALE E Primary GALE E Marquez [id number] Insurance:MEDICARE METSKERDOB: [facility] [id number] Number: Repository [address]Yho: 330 [id number] () Date:2018-05-23 05/23/2018 Secondary GALE E Cheney Insurance[place] MEDICAL METSKERDOB: [facility] Number: [id number] Hospital [id number] Repository Date:[id number] SERVICE [id number] [place], [place] [address]MX: [phone] X2003 05/23/2018 Tertiary NOT GIVENUNK Cheney Insurance:SELF PAY [facility] Number: Effective Repository Date:2018-05-23 05/23/2018 GALE E Primary GALE E Marquez [id number] Insurance:MEDICARE METSKERDOB: [facility] PART A [facility] [id number] Number: Repository [id number]: 330 [id number] [phone] (HP) Date:2018-05-23 05/23/2018 Secondary GALE E Marquez [place] METSKERDOB: [facility] Number: [id number] Hospital [id number] Repository Date:[id number] SERVICE [id number] [place], [place] [address]HD: [phone] X2003 05/23/2018 Tertiary NOT GIVENUNK Marquez Insurance:SELF PAY [facility] Number: Effective Repository Date:2018-05-23 05/23/2018 GALE E Primary Insurance:[place] GALE E Cheney [id number] MEDICAL [facility] METSKERDOB: [facility] Number: [id number], [place] [id number] Repository [address]Csm: (330) Date:[id number] [phone] (HP) SERVICE [id number] [place], [place] [address]KJ: [phone] X2003 05/23/2018 Secondary GALE E Marquez Insurance:MEDICARE METSKERDOB: [facility] A [facility] [id number] Hospital Number: Repository [id number] Date:2018-05-23 05/23/2018 Tertiary NOT GIVENUNK Marquez Insurance:SELF PAY [facility] Number: Effective Repository Date:2018-05-23
== END 2018-05-25 15:20 | disposition home or self-care (01) | DRG 74 ==
LOC: ED 23:06 → PCU 05-24 00:02
PROVIDERS: Internal Medicine; Admitting Provider Family Medicine; Emergency Provider Emergency Medicine; Referring Provider Family Medicine; Visit Provider Family Medicine
DX: G51.0 Bell's palsy (principal); G47.33 Obstructive sleep apnea (adult) (pediatric); E78.5 Hyperlipidemia, unspecified; E11.65 Type 2 diabetes mellitus with hyperglycemia; E66.9 Obesity, unspecified; F41.8 Other specified anxiety disorders; Z89.431 Acquired absence of right foot; Z79.4 Long term (current) use of insulin; Z68.28 Body mass index [BMI] 28.0-28.9, adult
CPT/HCPCS: 36415; 70450; 70496; 70498; 70551; 71045; 80048; 80061; 82962; 83036; 83735; 84443; 84484; 85025; 85610; 85730; 92523; 92526; 93005; 93306; 94002; 94660; 97161; 97166; 97802; 99285; J7030; Q9957; Q9967; A4216; C8929

== ENCOUNTER 2018-07-19 13:03 | Inpatient (IN) | payer MEDICARE, OTHER, SELFPAY ==
[2018-05-24 01:43] VITALS: BMI 28.4
[2018-07-19] VITALS (10 sets, daily range): BP systolic 114–164; BP diastolic 60–86; PULSE 76–136; RESP 13–26; TEMP 36.5–36.9; O2SAT 92–98; BMI 26.6; BMI 27.3; BMI 27.4
--- NOTE | 2018-07-19 13:22 | RAD_ITS ---
STUDY: X-RAY CHEST REASON FOR EXAM: Male, 73 years old. Weakness. TECHNIQUE: PA and lateral views of the chest. COMPARISON: 23 May 2018 FINDINGS: The lungs are clear and expanded. There is no demonstrated pleural abnormality. Normal size heart. Normal mediastinum and ibeth. Normal visualized pulmonary arteries. There is atherosclerotic calcification of the aortic arch with tortuosity. Normal visualized thoracic spine. Normal visualized ribs, clavicles, and shoulders. There is no demonstrated abnormality of the visualized soft tissue structures of the upper abdomen. RAD/Chest PA and Lateral IMPRESSION: No evidence of acute cardiopulmonary process. Electronically Signed: Hebert Negron DO at 14:51 EDT , Service support ,
--- NOTE | 2018-07-19 13:24 | RAD_ITS ---
STUDY: X-RAY - RIGHT FOOT CLINICAL: Male, 73 years old. Foot wound. TECHNIQUE: 3 view(s) of the foot. COMPARISON: None. FINDINGS: Demineralized talus, calcaneus, and tarsal bones. Large heel spurs present. 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 Apparent adequate soft tissue surrounding the amputation site is present. Underlying soft tissue inflammation and edema cannot be completely excluded. RAD/Foot min 3 Views IMPRESSION: Diffuse demineralization with no evidence of karl erosion. Underlying osseous infection cannot be completely excluded. If high clinical suspicion recommend MRI imaging versus nuclear medicine bone scan. Electronically Signed: Hebert Negron DO at 14:50 EDT , Service support ,
[2018-07-19 13:25] LABS: Bedside Glucose 285 mg/dL (70-110)
--- NOTE | 2018-07-19 13:26 | ED.VISSUMM ---
- ER Visit Summary Date of Service: 07/19/18 Chief Complaint: Shakes, hyperglycemia History of Present Illness: The patient is a 73 M with history of diabetes and hypertension status post a right foot amputation a few years ago presents with hyperglycemia and feeling shaky. He has a sinus congestion which is been ongoing for a few days without any fevers. He also has a right foot wound which apparently has worsened in the past 2-3 days per daughter. Patient also has some slight lumbar pain but no radiation of the pain. No bowel or bladder compromise Physical Examination: Patient does not appear toxic, he has dry mucous membrane he has bilateral otitis media and sinus tenderness in the frontal and maxillary sinuses he has rhinorrhea and postnasal drip. He has regular rhythm with tachycardic rate he has clear lungs bilaterally he has a soft and nontender abdomen he has slight tenderness over the lumbosacral spine region with a negative straight leg test bilaterally. Right foot examination reveals a chronic wound with slight surrounding cellulitis but no other signs of infection. Emergency Department Course and Treatment: Patient has a workup consistent with infection, he certainly has an upper respiratory infection on exam, however he also has cellulitis of his lower extremity. There is no osteomyelitis on x-ray however some of the inflammatory markers are elevated and this certainly could be the case. He has no anion gap, thus no DKA. I had a lactic acid. Patient was started on clindamycin IV he will be admitted for further treatment. Disposition: Admit and stable condition Impression: Right foot cellulitis Leukocytosis Upper respiratory infection Hyperglycemia This note was generated with [employer] dictation software. It may contain incorrect words, spelling, and punctuation that were not noted in review of the chart prior to signing ED Disposition - Plan for ED Patient: [facility] [[facility] -
[2018-07-19] MEDS: 0.9% Normal Saline 1,000 ML 1000 ML IV (13:41)
--- NOTE | 2018-07-19 14:06 | ED.RN ---
called report to sergio potter.
[2018-07-19 14:18] LABS: Erythrocyte Sedimentation Rate 45 mm/hr (0-20)
[2018-07-19 14:22] LABS: Absolute Lymphocyte Count 0.61 X10^3/ul (0.83-4.51); Absolute Neutrophil Count 20.6 X10^3/uL (2.0-7.7); Basophil# 0.04 X10^3/uL; Basophil% 0.2 % (0-1); Differential Indicated SCAN CRITERIA MET; Hematocrit 35.5 % (40-54); Hemoglobin 12.1 g/dl (13.0-16.5); Lymphocyte # 0.61 X10^3/ul (4.0); Lymphocyte % 2.8 % (19-41); Mean Corp Hgb Conc 34.1 g/gl (32-36); Mean Corpuscular Hgb 29.5 pg (27.0-32.0); Mean Corpuscular Volume 86.6 fL (80-94); Mean Platelet Vol. 9.9 fl (6.2-12.0); Monocyte# 0.64 X10^3/uL; Monocyte% 2.9 % (0-10); Neutrophil # 20.56 X10^3/uL (2.7-7.7); Neutrophil % 93.9 % (47-70); POSITIVE COUNT NO; POSITIVE DIFFERENTIAL YES; POSITIVE MORPHOLOGY NO; Platelet Count 302 K/mm3 (150-450); RBC Distribution Width CV 13.6 % (11.6-14.6); RBC Distribution Width SD 41.9 fl (35.1-43.9); White Blood Count 21.9 K/mm3 (4.4-11.0)
[2018-07-19 14:28] LABS: ALB/GLOB Ratio 0.6 RATIO (0.9-2.4); AST(SGOT) 78 U/L (15-37); Alanine Aminotransfer ALT/SGPT 17 U/L (16-61); Albumin, Serum 2.8 g/dL (3.2-5.0); Alkaline Phosphatase 44 U/L (45-117); Anion Gap 11 (5-15); BUN 22 mg/dL (7-18); BUN/Creat Ratio 14.3 RATIO (10-20); Calcium,Total 8.2 mg/dL (8.5-10.1); Chloride 95 mmol/L (98-107); Creatinine, Serum 1.54 mg/dL (0.70-1.30); EST Glomerular Filtration Rate 48 mL/min (>60); Est Glom Filt Rate - Afr Amer 58 mL/min (>60); Globulin 4.8 g/dL (2.2-4.2); Glucose 311 mg/dL (74-106); Potassium 3.8 mmol/L (3.5-5.1); Protein, Total 7.6 g/dL (6.4-8.2); Sodium Level 127 mmol/L (136-145)
--- NOTE | 2018-07-19 16:08 | MRI_ITS ---
STUDY: MRI RIGHT MIDFOOT REASON FOR EXAM: Nonhealing ulcer right foot, evaluate for osteomyelitis. TECHNIQUE: Standardized fat and water weighted pulse sequences were obtained in all 3 orthogonal planes. COMPARISON: Radiographs 07/19/2018. FINDINGS: Normal tibiotalar and posterior subtalar articulations. Normal talonavicular articulation. Normal calcaneocuboid articulation. Normal navicular-cuneiform articulations. Normal intercuneiform articulations. There are amputations of the first through fifth digits at the level proximal metatarsals. There is bone edema of the residual first metatarsal (inversion recovery sagittal images 14-18) with corresponding decreased T1 bone marrow signal (T1 sagittal images 14-18) suggestive of osteomyelitis. There is bone edema of the second metatarsal remnant (inversion recovery sagittal images 10-13) with corresponding decreased T1 bone marrow signal (T1 sagittal images 11-13) suggestive of osteomyelitis. There is bone edema of the third metatarsal remnant (inversion recovery sagittal images 9, 10) with corresponding decreased T1 bone marrow signal (T1 sagittal image 10) suggestive of osteomyelitis. There is bone marrow edema in the fourth metatarsal remnant (inversion recovery sagittal images 7-9) with corresponding decreased T1 bone marrow signal (T1 sagittal images 8, 9) suggestive of osteomyelitis. There is no bone edema of the fifth metatarsal remnant. There is mild bone edema of the medial cuneiform (inversion recovery sagittal images 14-17) with corresponding decreased T1 bone marrow signal (T1 sagittal images 14, 15) suggestive of osteomyelitis. There is an anchor in the lateral cuneiform. There is atrophy with fat replacement of the intrinsic muscles of the hindfoot/midfoot (T1 sagittal images 9-18) suggestive of peripheral neuropathy. There is edema in the subcutis adipose space at the amputation site (inversion recovery sagittal images 5-18). There is no fluid collection to suggest soft tissue abscess. MRI/Lower Ext/No Jt/w/o IMPRESSION: Signal alterations of the amputated remnants of the first through fourth metatarsals and medial cuneiform, suggestive of osteomyelitis. Edema in the subcutis adipose space at the amputation site without demonstrated soft tissue abscess. Atrophy of the intrinsic muscles of the hindfoot/midfoot suggestive of peripheral arthropathy. Electronically Signed: Kamran Diaz MD at 9:12 EDT Tel , Service support ,
--- NOTE | 2018-07-19 16:08 | RAD_ITS ---
STUDY: X-RAY - LUMBAR SPINE REASON FOR EXAM: Male, 73 years old. Back pain TECHNIQUE: 5 view(s) of the lumbar spine were obtained. COMPARISON: None FINDINGS: Normal lumbar lordosis. There is no substantial scoliosis. There is a normal alignment of the vertebrae. There is disc space narrowing at L4-L5 and L5-S1. There are no fractures. There is sclerosis of the facets of L4-L5 and L5-S1.. The soft tissue structures are unremarkable. There are mild distended loops of small bowel. RAD/L/S Spine Min 4 Views IMPRESSION: Multilevel spondylosis, no fractures Mild distended loops of small bowel, radiographs of the abdomen would be recommended for further evaluation Electronically Signed: Basil Bowden, at 20:36 EDT Tel , Service support ,
--- NOTE | 2018-07-19 16:11 | PCM.HP.STD ---
Problem List (1) Right foot soft tissue cellulitis Status: Acute (2) Right foot transmetatarsal amputation Status: Chronic (3) TRICIA (obstructive sleep apnea) Status: Chronic (4) Wound of foot Status: Chronic (5) Hyperlipidemia Status: Chronic Qualifiers: (6) Diabetes mellitus, type 2 Status: Chronic Qualifiers: (7) Benign essential hypertension Status: Chronic History of Present Illness Date of Admission: 07/19/18 Chief Complaint: Right foot cellulitis The patient is a 73 year old M with multiple comorbidities including type 2 diabetes mellitus, poorly controlled, chronic right foot TMA in February 2018 in [facility], came to ED with fever, chills, nausea, right foot pain, swelling and nonhealing ulcer since amputation since Friday. Patient also has URI symptoms including nasal/sinuses congestions came to ED with fever, chills and hyperglycemia. Patient is not feeling good since Friday about 5days with nausea and not able to eat. Patient is very dehydrated. Patient also complained of lumbar back pain with no radiation today. Denies bowel or bladder incontinence. Denies lumbar spine injury or osteomyelitis in the past. In ED, patient is tachycardic, not tachypneic or hypoxic. Blood pressure 125/61. Patient has leukocytosis. Patient is hyponatremia and hypochloremia. BUN/creatinine is elevated from baseline which is normal, currently 22/1.54 [] Past Medical History Past Medical History (Chronic Problems): Chronic Problems Right foot transmetatarsal amputation (Chronic) TRICIA (obstructive sleep apnea) (Chronic) Wound of foot (Chronic) Hyperlipidemia (Chronic) Diabetes mellitus, type 2 (Chronic) Benign essential hypertension (Chronic) Allergies No Known Allergies Allergy (Verified 05/23/18 23:01) Home Medications: Ambulatory Orders Medication Instructions Recorded Glipizide [Glipizide ER] 5 mg PO BID 05/23/18 Insulin Regular, Human [Novolin R] See Protocol IJ TIDCM 05/23/18 Lisinopril [Zestril] 5 mg PO DAILY 05/23/18 Metformin HCl 500 mg PO BID 05/23/18 Insulin NPH Human [Humulin N Pen] 25 units SC BID #0 05/25/18 Insulin Aspart [Novolog Flexpen] 8 units SC TIDCM 07/19/18 Peg 400/Hypromellose/Glycerin 1 drop LEFT EYE 4X/DAY 07/19/18 [Artificial Tears] Surgical History: - - Right foot surgery x2, initially TMA in 2004 and recent follow-up surgical intervention. Psychiatric History: Anxiety, Depression Smoking Status: Never smoker - *Family History Maternal History Items: Diabetes Paternal History Items: COPD Review of Systems Constitutional: Reports: Anorexia, Chills, Fever, Malaise, Weakness HEENT: Reports: Head Aches, Nasal Congestion, Post Nasal Drip, Sinus Congestion, Sinus Drainage Cardiovascular: Denies: Chest Pain, Palpitations Respiratory: Denies: Cough, Shortness of breath at rest, Sputum production Gastrointestinal: Reports: Nausea. Denies: Abdominal Pain, Vomiting Genitourinary: Denies: Dysuria, Frequency, Hematuria, Hesitancy Musculoskeletal: Reports: Back Pain, Joint Pain - right TMA amputation, Joint Tenderness Skin: Reports: Rash, Wounds, - Neurological: Denies: Numbness, Tingling, Focal weakness Psychiatric: Denies: Anxiety, Depression, Homicidal Ideations, Suicidal Ideations Hematologic/ Lymphatic: Denies: Easy Bruising, Easy Bleeding VTE Information - Inpt Only VTE Present on Admission: No VTE Mechan Device Prophylaxis: None VTE Pharm Prophylaxis ordered?: Yes Patient Problems: Active and Suspected Problems Right foot soft tissue cellulitis (Acute) - Physical Exam General: Alert, Oriented x3, Cooperative HEENT: Atraumatic, PERRLA, EOMI, Normocephalic Neck: Supple, No JVD, Negative Carotid Bruits Lungs: Clear to auscultation, No rhonchi, No wheeze, No rales, Diminished Cardiovascular: Regular rate, Regular Rhythm, Normal S1, Normal S2, No murmurs Abdomen: Bowel Sounds Present, Soft, Non Tender, Non-Distended Extremities: Capillary Refill Less than 3 Seconds, Edema Skin: Ulcer/ Wound - Chronic nonhealing wound at the right transmetatarsal amputation site. Stump site is open with chronic fibrosis granulation tissue, Rash Present - Erythematous rash present over right foot Musculoskeletal: Arthritic Changes, Muscle Wasting Lymphatic: No Cervical, Supraclavicular, or Inguinal Adenopathy Neurological: Cranial nerves II-XII grossly intact, Deep Tendon Reflexes 2+/4 and Symmetrical, Neuro grossly intact Psych/Mental Status: Normal Affect, Appropriate Vital Signs Temp Pulse Resp BP Pulse Ox 97.7 F L 94 15 114/60 92 07/19/18 13:09 07/19/18 16:00 07/19/18 16:00 07/19/18 16:00 07/19/18 16:00 Oxygen Delivery Method Room Air Weight: 180 lb 5.763 oz Body Mass Index (BMI) 26.6 Finger Stick Blood Glucose 285 Laboratory Tests Past 24 Hrs 07/19/18 07/19/18 13:40 13:40 WBC 21.9 H RBC 4.10 L Hgb 12.1 L Hct 35.5 L MCV 86.6 MCH 29.5 MCHC 34.1 RDW 13.6 RDW Differential 41.9 Plt Count 302 MPV 9.9 Immature Gran % (Auto) 0.200 Neut % (Auto) 93.9 H Lymph % (Auto) 2.8 L [place]ig[place] % (Auto) 2.9 Eos % (Auto) 0.0 Baso % (Auto) 0.2 Absolute Neuts (auto) 20.6 H Absolute Lymphs (auto) 0.61 L Total Counted Not Reportable ESR 45 H Sodium 127 L Potassium 3.8 Chloride 95 L Carbon Dioxide 21.0 Anion Gap 11 BUN 22 H Creatinine 1.54 H Estim Creat Clear Calc 44.00 Est GFR (MDRD) Af Amer 58 L Est GFR (MDRD) Non-Af 48 L BUN/Creatinine Ratio 14.3 Glucose 311 H Calcium 8.2 L Total Bilirubin 0.70 AST 78 H ALT 17 Alkaline Phosphatase 44 L C-React Prot Ext Range 177.00 H Total Protein 7.6 Albumin 2.8 L Globulin 4.8 H Albumin/Globulin Ratio 0.6 L POC Glucose 07/19/18 13:20 POC Glucose 285 H Assessment/Plan All Active Problems Right foot soft tissue cellulitis (Acute) The patient is a 73 year old M with multiple comorbidities including type 2 diabetes mellitus, poorly controlled, chronic right foot TMA in February 2018 in [facility], came to ED with fever, chills, nausea, right foot pain, swelling and nonhealing ulcer since amputation since Friday. Patient also has URI symptoms including nasal/sinuses congestions came to ED with fever, chills and hyperglycemia. Patient is not feeling good since Friday about 5days with nausea and not able to eat. Patient is very dehydrated. Patient also complained of lumbar back pain with no radiation today. Denies bowel or bladder incontinence. Denies lumbar spine injury or osteomyelitis in the past. In ED, patient is tachycardic, not tachypneic or hypoxic. Blood pressure 125/61. Patient has leukocytosis. Patient is hyponatremia and hypochloremia. BUN/creatinine is elevated from baseline which is normal, currently 22/1.54. ESR and CRP are elevated. Patient was last admitted on May 23, 2018 and discharged on 05/26/2018 for Cruz's palsy and CVA was ruled out. At that time right foot TMA wound was treated with doxycycline which he completed on 05/24/2018 1. SIRS with right foot cellulitis and possible osteomyelitis and open, chronic nonhealing right transmetatarsal amputation stump: Patient blood pressure is maintained. 114/60. IV fluid normal saline 1 L bolus ordered and then 150 mill per hour. Lactic acid is pending. Heart rate has improved. Started on IV vancomycin and Zosyn. Patient received 1 dose of clindamycin in ED. Pharmacy to dose for vancomycin dose. Blood cultures x2, UA, wound culture and MRSA nasal screen ordered. ID and apprentice plant attendant consult. MRI right foot ordered. 2. Diabetes mellitus type 2 with hyperglycemia: Anion gap is normal. Bicarb is 21. Patient has hyponatremia, which is more than correction for hyperglycemia. Accu-Chek before meals and at bedtime. Patient is on a scheduled and sliding scale NovoLog insulin. Continued on NPH insulin, home dosage. A1c tomorrow a.m. 3. Hyponatremia and hypochloremia probably secondary to dehydration in addition to hyperglycemia: IV fluid normal saline. Monitor electrolytes tomorrow. 4. Acute back pain, etiology unclear: Lumbar spine x-ray ordered. If further concern in x-ray, consider MRI lumbar spine. 5. Other comorbidities include hypertension, obstructive sleep apnea, anxiety and depression: Home medication reconciliation done. Hold antihypertensive medications. DVT prophylaxis: On Lovenox 40 mg subcu daily. Current labs, imaging test and management plan discussed with the patient's daughter near the bedside,Ms. Ac Kate. Laboratory Results 07/19/18 13:20: POC Glucose 285 H 07/19/18 13:40: WBC 21.9 H, RBC 4.10 L, Hgb 12.1 L, Hct 35.5 L, MCV 86.6, MCH 29.5, MCHC 34.1, RDW 13.6, RDW Differential 41.9, Plt Count 302, MPV 9.9, Immature Gran % (Auto) 0.200, Neut % (Auto) 93.9 H, Lymph % (Auto) 2.8 L, Twiggs % (Auto) 2.9, Eos % (Auto) 0.0, Baso % (Auto) 0.2, Absolute Neuts (auto) 20.6 H, Absolute Lymphs (auto) 0.61 L, Total Counted Not Reportable, ESR 45 H 07/19/18 13:40: Sodium 127 L, Potassium 3.8, Chloride 95 L, Carbon Dioxide 21.0, Anion Gap 11, BUN 22 H, Creatinine 1.54 H, Estim Creat Clear Calc 44.00, Est GFR (MDRD) Af Amer 58 L, Est GFR (MDRD) Non-Af 48 L, BUN/Creatinine Ratio 14.3, Glucose 311 H, Calcium 8.2 L, Total Bilirubin 0.70, AST 78 H, ALT 17, Alkaline Phosphatase 44 L, C-React Prot Ext Range 177.00 H, Total Protein 7.6, Albumin 2.8 L, Globulin 4.8 H, Albumin/Globulin Ratio 0.6 L 07/19/18 13:40: Hemoglobin A1c Pending 07/19/18 16:05: Lactic Acid Pending Code Visit Inpatient E&M: 24462 Init Hosp L3
[2018-07-19 16:54] LABS: Lactic Acid 1.7 mmol/L (0.4-2.0)
[2018-07-19 16:56] LABS: Hemoglobin A1c 9.9 % (4.2-6.3)
[2018-07-19 17:31] LABS: Bedside Glucose 232 mg/dL (70-110)
[2018-07-19] MEDS: 0.9% Normal Saline 1,000 ML 150 ML IV (17:45)
[2018-07-19] MEDS: Insulin Lispro 100 UNIT/ML INSULN.PEN SQ (18:02)
[2018-07-19] MEDS: Insulin Lispro 100 UNIT/ML INSULN.PEN 10 UNIT SC (18:04)
[2018-07-19] MEDS: Insulin NPH Human 100 UNITS/ML PEN 25 UNITS SC (18:05)
[2018-07-19] MEDS: Enoxaparin 40 MG/0.4 ML Syringe SC (18:06)
[2018-07-19] MEDS: 0.9% Normal Saline 1,000 ML 999 ML IV (18:14)
--- NOTE | 2018-07-19 19:09 | PCM.CONS.GEN ---
Problem List (1) Diabetic ulcer of right foot with fat layer exposed Status: Acute (2) Type 2 diabetes mellitus with diabetic polyneuropathy Status: Acute (3) Delayed wound healing Status: Acute (4) Cellulitis of right foot Status: Acute Reason for Consult Date of Consultation: 07/19/18 Reason for Consultation: Ulcer right foot with cellulitis History of Present Illness: The patient is a 73 year old diabetic M with neuropathy that was admitted this evening through the ER for ulcer with cellulitis to right foot. Patient was resting comfortably in his bed this evening during his examination. He says he has been feeling much better since he has been admitted in the hospital. Patient says he has had multiple surgeries on his right foot that started back over 10 years ago. He says he has had at least 4 surgeries on his right foot and more proximal amputations have been performed each time. He relates his most recent surgery was performed in February of this past year. All of his procedures have been performed at the [place] [facility] in [place]. He says he goes up there each Friday for wound care and his daughter helps dress his ulcers the other days throughout the week. He is unsure what they are currently dressing his ulcer site with. He says this past Friday he started noticing that he was not feeling so well and it slowly got a little worse as the week went on. He says he finally decided it was time to be evaluated this afternoon and came to the ER. He currently denies having any feeling of fever, nausea, vomiting, shortness of breath. He also admits the chills he felt in the ER have been improving since his IV antibiotics were started. [] Past Medical History Past Medical History (Chronic Problems): Chronic Problems Right foot transmetatarsal amputation (Chronic) TRICIA (obstructive sleep apnea) (Chronic) Wound of foot (Chronic) Hyperlipidemia (Chronic) Diabetes mellitus, type 2 (Chronic) Benign essential hypertension (Chronic) Allergies No Known Allergies Allergy (Verified 05/23/18 23:01) Home Medications: Ambulatory Orders Medication Instructions Recorded Glipizide [Glipizide ER] 5 mg PO BID 05/23/18 Insulin Regular, Human [Novolin R] See Protocol IJ TIDCM 05/23/18 Lisinopril [Zestril] 5 mg PO DAILY 05/23/18 Metformin HCl 500 mg PO BID 05/23/18 Insulin NPH Human [Humulin N Pen] 25 units SC BID #0 05/25/18 Insulin Aspart [Novolog Flexpen] 8 units SC TIDCM 07/19/18 Peg 400/Hypromellose/Glycerin 1 drop LEFT EYE 4X/DAY 07/19/18 [Artificial Tears] Surgical History: - - Right foot surgery x2, initially TMA in 2004 and recent follow-up surgical intervention. Psychiatric History: Anxiety, Depression Smoking Status: Never smoker - *Family History Maternal History Items: Diabetes Paternal History Items: COPD Review of Systems Constitutional: Reports: Chills - improving. Denies: Anorexia, Fever Cardiovascular: Denies: Chest Pain, Palpitations Respiratory: Denies: Cough, Shortness of breath at rest Gastrointestinal: Denies: Abdominal Pain, Nausea, Vomiting Musculoskeletal: Reports: Back Pain Skin: Reports: - - Ulcer distoplantar right TMA site Psychiatric: Denies: Anxiety, Depression, Homicidal Ideations, Suicidal Ideations Patient Problems: Active and Suspected Problems Right foot soft tissue cellulitis (Acute) Diabetic ulcer of right foot with fat layer exposed (Acute) Type 2 diabetes mellitus with diabetic polyneuropathy (Acute) Delayed wound healing (Acute) Cellulitis of right foot (Acute) - Physical Exam General: Alert, Oriented x3, Cooperative Extremities: No cyanosis, Capillary Refill Less than 3 Seconds - to distal TMA site, No Calf Tenderness - Negative Giselle and Mike signs, Diminished Peripheral Pulses - DP and PT pulses faintly palpable to right side, Edema - Slight edema to right TMA site Skin: Ulcer/ Wound - Ulcer noted to distal plantar right foot at the end of his TMA site. The base of the ulcer was noted to be a mixture of adherent slough, fibrin, biofilm, granular tissue, as well as some surrounding hyperkeratotic tissue. There is one small area near the center of the ulcer site that was shown to probe to bone. There is no purulence, no malodor appreciated. There is some surrounding erythema. There is no proximal streaking cellulitis noted. No crepitus on palpation. Musculoskeletal: No Tenderness to Palpation of Joints or Extremities, Muscle Wasting Neurological: - - Epicritic sensation grossly absent to lower extremity Psych/Mental Status: Normal Affect, Appropriate Vital Signs Temp Pulse Resp BP Pulse Ox 98.4 F 90 18 125/67 H 94 07/19/18 16:55 07/19/18 18:00 07/19/18 16:55 07/19/18 16:55 07/19/18 17:16 Oxygen Delivery Method Room Air Weight: 84.2 kg Body Mass Index (BMI) 27.3 Finger Stick Blood Glucose 285 Laboratory Tests Past 24 Hrs 07/19/18 07/19/18 07/19/18 13:40 13:40 13:40 WBC 21.9 H RBC 4.10 L Hgb 12.1 L Hct 35.5 L MCV 86.6 MCH 29.5 MCHC 34.1 RDW 13.6 RDW Differential 41.9 Plt Count 302 MPV 9.9 Immature Gran % (Auto) 0.200 Neut % (Auto) 93.9 H Lymph % (Auto) 2.8 L [place] % (Auto) 2.9 Eos % (Auto) 0.0 Baso % (Auto) 0.2 Absolute Neuts (auto) 20.6 H Absolute Lymphs (auto) 0.61 L Total Counted Not Reportable ESR 45 H Sodium 127 L Potassium 3.8 Chloride 95 L Carbon Dioxide 21.0 Anion Gap 11 BUN 22 H Creatinine 1.54 H Estim Creat Clear Calc 44.00 Est GFR (MDRD) Af Amer 58 L Est GFR (MDRD) Non-Af 48 L BUN/Creatinine Ratio 14.3 Glucose 311 H Hemoglobin A1c 9.9 H Lactic Acid Calcium 8.2 L Total Bilirubin 0.70 AST 78 H ALT 17 Alkaline Phosphatase 44 L C-React Prot Ext Range 177.00 H Total Protein 7.6 Albumin 2.8 L Globulin 4.8 H Albumin/Globulin Ratio 0.6 L 07/19/18 16:05 WBC RBC Hgb Hct MCV MCH MCHC RDW RDW Differential Plt Count MPV Immature Gran % (Auto) Neut % (Auto) Lymph % (Auto) [place] % (Auto) Eos % (Auto) Baso % (Auto) Absolute Neuts (auto) Absolute Lymphs (auto) Total Counted ESR Sodium Potassium Chloride Carbon Dioxide Anion Gap BUN Creatinine Estim Creat Clear Calc Est GFR (MDRD) Af Amer Est GFR (MDRD) Non-Af BUN/Creatinine Ratio Glucose Hemoglobin A1c Lactic Acid 1.7 Calcium Total Bilirubin AST ALT Alkaline Phosphatase C-React Prot Ext Range Total Protein Albumin Globulin Albumin/Globulin Ratio POC Glucose 07/19/18 07/19/18 17:28 13:20 POC Glucose 232 H 285 H Assessment/Plan All Active Problems Right foot soft tissue cellulitis (Acute) Diabetic ulcer of right foot with fat layer exposed (Acute) Type 2 diabetes mellitus with diabetic polyneuropathy (Acute) Delayed wound healing (Acute) Cellulitis of right foot (Acute) Diabetic ulcer to right TMA site DM with neuropathy Cellulitis of right foot Delayed ulcer healing Other comorbidities This 73-year-old diabetic male was carefully examined and evaluated in great detail resting in his bed this evening. Patient relates she is feeling better since being admitted and started on IV antibiotics. Patient has leukocytosis as well as elevated ESR and CRP. Patient is currently afebrile and other vital signs are stable currently. Foot x-ray taken in the emergency room was read by radiologist as showing diffuse demineralization with no evidence of karl erosion. No soft tissue emphysema appreciated. MRI of the right foot was ordered by Dr. iTrado and will be completed tomorrow. Patient is currently on IV antibiotics and infectious disease will be consulted tomorrow as well. A subcutaneous excisional debridement was then performed bedside using a #7 curette. All adherent slough, fibrin, biofilm, hyperkeratotic tissue was debrided from the ulcer site. 100% of the ulcer site was debrided. Mild bleeding noted and hemostasis was easily achieved using light manual pressure. Patient tolerated this procedure well. Pre-debridement measurement was 4.9 cm x 4.9 cm x 0.2 cm. Post debridement measurement noted to be 5.1 cm x 5.0 cm x 0.2 cm with a small area towards the center of the ulcer site that probed deep to bone. No purulence was noted. Once debridement was complete, deep wound cultures were taken and sent for aerobic, anaerobic, and MRSA PCR evaluation. We will continue to monitor for these results. Next, the ulcer site was carefully dressed with Aquacel Ag to the ulcer base followed by 4 x 4s, ABD, Kerlix. This dressing can be reinforced as needed by nursing staff. Patient was instructed to be nonweightbearing to the distal right foot in the area of the ulcer site at all times. If he is to be up he was instructed to be heel weightbearing to the right foot with the assistance of his walker. Patient does relate to both myself and Dr. Tirado this evening, that he would prefer to be transferred back to the [facility] if possible. Dr. Tirado says he will inform the charge nurse of his wishes and will see if this is possible tomorrow. Podiatry team will continue to follow this patient closely while in house.
[2018-07-19 21:00] LABS: Bedside Glucose 134 mg/dL (70-110)
[2018-07-19] MEDS: oxyCODONE 5 MG Tablet PO (21:40)
[2018-07-19 21:42] LABS: M R Staph aureus DNA By PCR Negative (Negative); Probe Check PASS; Staph aureus DNA By PCR POSITIVE (Negative)
[2018-07-20] VITALS (36 sets, daily range): BP systolic 90–169; BP diastolic 46–97; PULSE 93–163; RESP 12–39; TEMP 36.8–37.7; O2SAT 85–100
--- NOTE | 2018-07-20 | NURSING ---
hx of sleep apnea, O2 dropped to 88% on r/a while sleeping. Placed on 2L NC.
[2018-07-20] MEDS: 0.9% Normal Saline 1,000 ML 150 ML IV (01:52)
[2018-07-20 04:14] LABS: Color, Urine Yellow (Yellow); Glucose, Dipstick 1000 mg/dl (Normal); Ketone-Dipstick 15 mg/dl (Negative); Leukocyte Esterase-Dipstick 25 /ul (Negative); Nitrite-Dipstick Negative (Negative); Occult Blood-Urine 250 /ul (Negative); Protein-Dipstick 100 mg/dl (Negative); Urine Bilirubin Dipstick Negative (Negative); Urine Clarity Sl. Cloudy (Clear); Urine Urobilinogen 1 mg/dl (Normal)
[2018-07-20 04:20] LABS: Bacteria 1+ /hpf (None Seen); Mucous, Urine 1+ /hpf (<or=2+); Squamous Epithelial Cells - UA 0-5 SEEN /hpf (0-5); White Blood Cells 0-5 SEEN /hpf (0-5)
[2018-07-20 04:21] LABS: Red Blood Cells-Urine 5-10 SEEN /hpf (0-5)
--- NOTE | 2018-07-20 05:06 | RAD_ITS ---
STUDY: X-RAY CHEST REASON FOR EXAM: Male, 73 years old. SOB TECHNIQUE: Single frontal view of the chest. COMPARISON: 07/19/2018 FINDINGS: Evolving right upper lobe and right perihilar alveolar disease. Evolving bibasilar atelectasis. There is no demonstrated pleural abnormality. Stable cardiomediastinal silhouette. Normal mediastinum and ibeth. Normal visualized pulmonary arteries. Normal visualized aortic arch and descending thoracic aorta. Normal visualized thoracic spine. Normal visualized ribs, clavicles, and shoulders. There is no demonstrated abnormality of the visualized soft tissue structures of the upper abdomen. RAD/Chest 1 View (Portable) IMPRESSION: Evolving right upper lobe and right perihilar alveolar disease. Evolving bibasilar atelectasis. Electronically Signed: Tyson Garcia MD at 6:24 EDT Tel , Service support ,
--- NOTE | 2018-07-20 05:10 | NURSING ---
Went to assess pt after tele/SpO2 was alarming. VS obtained 98.8, 140, 38, 169/95, 85% on 2L NC. Respiratory on unit at time and seen pt. Placed on venti mask SpO2 80% and resp 34. Dr. Up notified. Order to place on bipap and will be up to see pt.
--- NOTE | 2018-07-20 05:25 | NURSING ---
Pt placed on bipap and ABG's obtained and sent to lab. Pt transferred to ICU bed 2. Report called to BALBINA Kong.
[2018-07-20 05:26] LABS: Allen Test POS; Base Excess -12 mmol/L (-2 to +2); Bicarbonate 15.1 mmol/L (22-26); Blood Gas Specimen Type ART; EPAP 8; FI02 70; IPAP 16; PO2 106 mmHG (75-100); RR 12; SITE L Radial; SO2 97 % (95-99); Time Given 515; Total Carbon Dioxide 16 mmol/L; pCO2 32.1 mmHg (35-45); pH 7.28 (7.35-7.45)
--- NOTE | 2018-07-20 05:32 | PCM.HOSP.N ---
Hospitalist Note Patient with sudden onset dyspnea with hypoxia, increased work of breathing, accessory muscle usage, evident respiratory distress. Patient lungs rhonchorous, diminished, occasional very soft end expiratory wheeze in the bases but no obvious market rales. Requested ABG, chest x-ray, BiPAP currently being placed with transfer to the ICU. Patient does normally use a CPAP at night and does not currently have this on prior to these events. Following BiPAP placement he does note feeling improved and respiratory effort is trending more towards normal but still concerning. He did have recent upper respiratory symptoms and respiratory viral panel has also been requested. Aerosols added. Web Content Developer, Dr. Weston updated about transfer.
--- NOTE | 2018-07-20 05:49 | NURSING ---
Daughter notified pt was transferred to ICU
--- NOTE | 2018-07-20 05:55 | VDLE_ITS ---
Reason For Study: LEG SWELLING RIGHT LEFT GSV is normal. GSV is normal. CFV is compressible, spontaneous, competent CFV is compressible, spontaneous, competent, and demonstrates pulsatile venous flow. and demonstrates pulsatile venous flow. FV is compressible, spontaneous, competent FV is compressible, spontaneous, competent and demonstrates pulsatile venous flow. and demonstrates pulsatile venous flow. POP V is compressible, spontaneous, competent POP V is compressible, spontaneous, competent and demonstrates pulsatile venous flow. and demonstrates pulsatile venous flow. T/P Trunk is compressible. T/P Trunk is compressible. PTV is compressible. PTV is compressible. RT PerV is compressible. LT PerV is compressible. Procedure Exam performed portable in patient room. A preliminary report was called and/or faxed to ICU. Interpretation Summary No evidence for acute deep venous thrombosis bilateral lower extremities with patent and compressible bilateral great saphenous veins. Pulsitile venous flow noted bilaterally consistent with proximal venous hypertension--clinical correlation would be appropriate. Ordering Physician: Conrad Tirado Performed By: Noris Patel RVT
[2018-07-20 06:35] LABS: Lactic Acid 2.2 mmol/L (0.4-2.0)
[2018-07-20 06:36] LABS: BUN 21 mg/dL (7-18); Creatinine, Serum 1.16 mg/dL (0.70-1.30); EST Glomerular Filtration Rate 66 mL/min (>60); Estimated Creatinine Clearance 58.41 ml/min; Glucose 164 mg/dL (74-106)
[2018-07-20 06:37] LABS: Anion Gap 10 (5-15); BUN/Creat Ratio 18.1 RATIO (10-20); Calcium,Total 7.7 mg/dL (8.5-10.1); Chloride 101 mmol/L (98-107); Est Glom Filt Rate - Afr Amer 80 mL/min (>60); Potassium 3.9 mmol/L (3.5-5.1); Sodium Level 129 mmol/L (136-145)
[2018-07-20] MEDS: 0.9% Normal Saline 1,000 ML 125 ML IV (06:39)
[2018-07-20] MEDS: Insulin Lispro 100 UNIT/ML INSULN.PEN SQ ×4 (07:09→21:45)
[2018-07-20 07:11] LABS: Absolute Lymphocyte Count 0.78 X10^3/ul (0.83-4.51); Absolute Neutrophil Count 20.2 X10^3/uL (2.0-7.7); Basophil# 0.02 X10^3/uL; Basophil% 0.1 % (0-1); Hematocrit 37.6 % (40-54); Hemoglobin 12.3 g/dl (13.0-16.5); Lymphocyte # 0.78 X10^3/ul (4.0); Lymphocyte % 3.5 % (19-41); Mean Corp Hgb Conc 32.7 g/gl (32-36); Mean Corpuscular Hgb 28.7 pg (27.0-32.0); Mean Corpuscular Volume 87.6 fL (80-94); Mean Platelet Vol. 9.9 fl (6.2-12.0); Monocyte# 1.01 X10^3/uL; Monocyte% 4.6 % (0-10); Neutrophil % 91.4 % (47-70); Platelet Count 323 K/mm3 (150-450); Red Blood Count 4.29 M/mm3 (4.6-6.2); White Blood Count 22.1 K/mm3 (4.4-11.0)
[2018-07-20 07:12] LABS: Differential Indicated SCAN CRITERIA MET; POSITIVE COUNT NO; POSITIVE DIFFERENTIAL YES; POSITIVE MORPHOLOGY NO
[2018-07-20 07:15] LABS: Bedside Glucose 179 mg/dL (70-110)
--- NOTE | 2018-07-20 09:25 | EKG12_ITS ---
Test Reason : TACHYCARDIA Blood Pressure : / mmHG Vent. Rate : 140 BPM Atrial Rate : 140 BPM P-R Int : 168 ms QRS Dur : 076 ms QT Int : 240 ms P-R-T Axes : 018 -25 138 degrees QTc Int : 366 ms Sinus tachycardia Septal infarct , age undetermined Abnormal ECG When compared with ECG of 20-JUL-2018 09:38, MANUAL COMPARISON REQUIRED, DATA IS UNCONFIRMED Confirmed by BINDU RICE, SAMIA ([id number]), department editor MODESTO MARQUES ([id number]) on 07/21/2018 4:18:22 PM Referred By: MARAL Confirmed By:SAMIA RUANO MD
--- NOTE | 2018-07-20 09:28 | PN_ITS ---
Patient Problems: Active and Suspected Problems Right foot soft tissue cellulitis (Acute) Diabetic ulcer of right foot with fat layer exposed (Acute) Type 2 diabetes mellitus with diabetic polyneuropathy (Acute) Delayed wound healing (Acute) Cellulitis of right foot (Acute) Severe sepsis (Acute) Acute respiratory failure with hypoxia (Acute) Subjective: Patient was seen and examined. He developed sudden onset of dyspnea with worsening respiratory distress, started on BiPAP and transferred to the ICU. Patient was seen just off BiPAP. He denied any fever but admits to chills. No chest pain or dizziness Telemetry shows tachycardia with heart rate going as high as 160s Vitals/I&O's: Vital Signs Temp Pulse Resp BP Pulse Ox 98.7 F 135 H 30 H 127/89 H 98 07/20/18 08:00 07/20/18 08:00 07/20/18 08:00 07/20/18 08:00 07/20/18 08:00 Oxygen Flow Rate (L/min) 2 Oxygen Delivery Method Bi-pap Weight: 84.2 kg Body Mass Index (BMI) 27.3 Finger Stick Blood Glucose 285 Intake and Output for Last 24 Hours 07/18/18 07/19/18 07/20/18 23:59 23:59 23:59 Intake Total 1711 / 1711 Output Total 150 / 150 Balance 1561 / 1561 General: Alert, Oriented x3, Cooperative, - - in mild respiratory distress, just transitioned from oxygen, on 3L oxygen HEENT: Atraumatic, PERRLA, EOMI, Normocephalic Oral: Moist Mucosa Neck: Supple Lungs: Diminished Cardiovascular: Regular rate, Regular Rhythm, Normal S1, Normal S2, No murmurs Abdomen: Bowel Sounds Present, Soft, Non Tender, Non-Distended, No Hepato- splenomegaly Extremities: Edema - Bilateral pedal edema +1 Skin: No rashes, No breakdown Musculoskeletal: No Tenderness to Palpation of Joints or Extremities Lymphatic: No Cervical, Supraclavicular, or Inguinal Adenopathy Neurological: Cranial nerves II-XII grossly intact, Neuro grossly intact Psych/Mental Status: Normal Affect, Appropriate Microbiology Past 72 Hours 07/19/18 13:40 Blood Culture (Wb) - Venous Bacteria Detection (PCR) - Preliminary Streptococcus pyogenes 07/19/18 13:40 Blood Culture (Wb) - Venous Blood Culture - Preliminary Laboratory Results 07/19/18 13:20: POC Glucose 285 H 07/19/18 13:40: WBC 21.9 H, RBC 4.10 L, Hgb 12.1 L, Hct 35.5 L, MCV 86.6, MCH 29.5, MCHC 34.1, RDW 13.6, RDW Differential 41.9, Plt Count 302, MPV 9.9, Immature Gran % (Auto) 0.200, Neut % (Auto) 93.9 H, Lymph % (Auto) 2.8 L, Caval[place] % (Auto) 2.9, Eos % (Auto) 0.0, Baso % (Auto) 0.2, Absolute Neuts (auto) 20.6 H, Absolute Lymphs (auto) 0.61 L, Total Counted Not Reportable, ESR 45 H 07/19/18 13:40: Sodium 127 L, Potassium 3.8, Chloride 95 L, Carbon Dioxide 21.0, Anion Gap 11, BUN 22 H, Creatinine 1.54 H, Estim Creat Clear Calc 44.00, Est GFR (MDRD) Af Amer 58 L, Est GFR (MDRD) Non-Af 48 L, BUN/Creatinine Ratio 14.3, Glucose 311 H, Calcium 8.2 L, Total Bilirubin 0.70, AST 78 H, ALT 17, Alkaline Phosphatase 44 L, C-React Prot Ext Range 177.00 H, Total Protein 7.6, Albumin 2.8 L, Globulin 4.8 H, Albumin/Globulin Ratio 0.6 L 07/19/18 13:40: Hemoglobin A1c 9.9 H 07/19/18 16:05: Lactic Acid 1.7 07/19/18 17:28: POC Glucose 232 H 07/19/18 18:45: S.aureus Protein A PCR POSITIVE H, MRSA (PCR) Negative 07/19/18 20:48: POC Glucose 134 H 07/20/18 03:05: Urine Color Yellow, Urine Clarity Sl. Cloudy, Urine pH 5.0, Ur Specific [place] 1.020, Urine Protein 100 H, Urine Glucose (UA) 1000 H, Urine Ketones 15 H, Urine Occult Blood 250 H, Urine Nitrite Negative, Urine Bilirubin Negative, Urine Urobilinogen 1 H, Ur Leukocyte Esterase 25 H, Urine RBC 5-10 SEEN, Urine WBC 0-5 SEEN, Ur Squamous Epith Cells 0-5 SEEN, Urine Bacteria 1+, Urine Mucus 1+ 07/20/18 05:22: Specimen Type ART, Sample Site L Radial, pH 7.28 L, Bicarbonate Actual 15.1 L, POC Total CO2 16, Base Excess -12 L, O2 Saturation 97, O2 % 70, ABG pCO2 32.1 L, ABG pO2 106 H, Ladarius Test POS, Respiration Rate 12, O2 Delivery Device Bi / C PAP, EPAP 8, IPAP 16, Blood Gas Notified Whom CLEMENT RICE, Blood Gas Notified Time 515 07/20/18 05:45: WBC 22.1 H, RBC 4.29 L, Hgb 12.3 L, Hct 37.6 L, MCV 87.6, MCH 28.7, MCHC 32.7, RDW 14.0, RDW Differential 44.0 H, Plt Count 323, MPV 9.9, Immature Gran % (Auto) 0.400, Neut % (Auto) 91.4 H, Lymph % (Auto) 3.5 L, [place] % (Auto) 4.6, Eos % (Auto) 0.0, Baso % (Auto) 0.1, Absolute Neuts (auto) 20.2 H, Absolute Lymphs (auto) 0.78 L, Total Counted Not Reportable 07/20/18 05:45: Sodium 129 L, Potassium 3.9, Chloride 101, Carbon Dioxide 18.0 L , Anion Gap 10, BUN 21 H, Creatinine 1.16, Estim Creat Clear Calc 58.41, Est GFR (MDRD) Af Amer 80, Est GFR (MDRD) Non-Af 66, BUN/Creatinine Ratio 18.1, Glucose 164 H, Calcium 7.7 L 07/20/18 05:45: Lactic Acid 2.2 H 07/20/18 07:06: POC Glucose 179 H Current Medications Al Hydroxide/Mg Hydroxide (Mylanta Ii) 30 ml PO Q6H PRN PRN PRN Reason: Gastric Burning Albuterol Sulfate (Ventolin Aerosols) 2.5 mg INHALATION Q2H PRN PRN PRN Reason: dyspnea, wheezing Artificial Tears (Tears Naturale, Artificial Tears) 1 drop LEFT EYE 4X/DAY KVNG Last Admin: 07/19/18 21:42 Dose: 1 drop Bisacodyl (Dulcolax) 10 mg RECTAL DAILY PRN PRN PRN Reason: Constipation Dextrose (D50w Syringe) 0 gm IV X1 PRN; Protocol PRN Reason: Hypoglycemia Docusate Sodium (Colace) 200 mg PO BID PRN PRN PRN Reason: Constipation Enoxaparin Sodium (Lovenox) 40 mg SC DAILY [facility] Last Admin: 07/19/18 18:06 Dose: 40 mg Glucagon () 1 mg IM .X1 PRN PRN Reason: Hypoglycemia Piperacillin Sod/Tazobactam (Sod 3.375 gm/ Sodium Chloride) 50 mls @ 12.5 mls/hr IV Q8 [facility] Last Admin: 07/20/18 05:15 Dose: 12.5 mls/hr Vancomycin IV Pharmacy to Dose (1 ea/ Sodium Chloride) 500 mls @ 250 mls/hr IV DAILY [facility]; Protocol Vancomycin HCl 1,250 mg/ (Sodium Chloride) 275 mls @ 167 mls/hr IV Q24H [facility] Sodium Chloride () 1,000 mls @ 125 mls/hr IV .Q8H [facility] Last Admin: 07/20/18 06:39 Dose: 125 mls/hr Insulin Human Lispro (Humalog Kwikpen (Bkc)) 0 unit SQ ACHS [facility]; Protocol Last Admin: 07/20/18 07:09 Dose: 2 u Insulin Human Lispro (Humalog Kwikpen (Bkc)) 10 unit SC TIDCM [facility] Last Admin: 07/19/18 18:04 Dose: 10 u Insulin Human NPH (Humulin N (Bkc)) 25 units SC BIDCM [facility] Last Admin: 07/19/18 18:05 Dose: 25 u Morphine Sulfate () 2 mg IV Q4H PRN PRN PRN Reason: SEVERE PAIN (6-10/10) Nutritional Formula (Lactose Free) (Glucerna Shake) 120 ml PO TIDCM [facility] Last Admin: 07/20/18 07:42 Dose: Not Given Ondansetron HCl (Zofran) 4 mg IV Q8H PRN PRN PRN Reason: Nausea Oxycodone HCl (Oxyir) 5 mg PO Q4H PRN PRN PRN Reason: SEVERE PAIN (6-10/10) Last Admin: 07/19/18 21:40 Dose: 5 mg Polyethylene Glycol (Miralax) 17 gm PO DAILY [facility] Sodium Chloride () 5 - 15 ml IV UD PRN PRN Reason: SALINE FLUSH Medical Necessity - Tobacco Use Smoking Status: Never smoker Assessment/Plan All Active Problems Right foot soft tissue cellulitis (Acute) Diabetic ulcer of right foot with fat layer exposed (Acute) Type 2 diabetes mellitus with diabetic polyneuropathy (Acute) Delayed wound healing (Acute) Cellulitis of right foot (Acute) Severe sepsis (Acute) Acute respiratory failure with hypoxia (Acute) 73-year-old male with past medical history of type II DM, poorly controlled, history of recent TMA to the right foods, who comes in with complaints of fever chills with right foot pain and swelling as well as nonhealing ulcer. 1. 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 Wound cultures growing streptococcus group A, MRI of the foot ordered -on hold because patient is on BiPAP. Leucocytosis is persistent, Continue on IV vancomycin and Zosyn. ID consulted. 2. Streptococcus pyogenes bacteremia, ID consulted, on IV Zosyn 3. Acute hypoxic respiratory failure secondary to community-acquired pneumonia versus aspiration pneumonia On and off of BiPAP, continue on BiPAP as needed, encourage use of incentive spirometer 4. Community acquired pneumonia versus aspiration pneumonia Infiltrates seen on repeat chest x-ray this morning mostly in the right upper lobe On Vancomycin and Zosyn, ID consulted 5. Type II DM, poorly controlled, HbA1c is 9.9, blood sugars are fairly controlled, will continue to monitor and change frequency of Accu-Cheks especially if patient continues to remain n.p.o. 6. VERÓNICA likely secondary to dehydration, improved, will follow with repeat blood work in am 7. Hypertension, controlled, not on meds, will continue to monitor 8. TRICIA on CPAP at home; on Bipap here 9. DVT Ppx- Lovenox SC 10. GI prophylaxis - on Famotidine IV BID Code Visit Inpatient E&M: [id number] Subs Hosp L3
--- NOTE | 2018-07-20 09:29 | PCM.CON.CC ---
Problem List (1) Severe sepsis Status: Acute (2) Acute respiratory failure with hypoxia Status: Acute (3) Right foot soft tissue cellulitis Status: Acute (4) Right foot transmetatarsal amputation Status: Chronic (5) Type 2 diabetes mellitus with diabetic polyneuropathy Status: Acute (6) Delayed wound healing Status: Acute (7) TRICIA (obstructive sleep apnea) Status: Chronic (8) Hyperlipidemia Status: Chronic Qualifiers: (9) Diabetes mellitus, type 2 Status: Chronic Qualifiers: (10) Benign essential hypertension Status: Chronic Reason for Consult Date of Consultation: 07/20/18 - Late entry Reason for Consultation: Respiratory failure History of Present Illness: The patient is a 73 year old M, with past medical history listed below, who presented to [facility] on 07/19/2018 secondary to a right foot infection. Patient reportedly had an amputation in February 2018 at the [facility]. Patient presented with history of fever, chills, nausea and exudate from the right foot. Patient had reported some URI type symptoms with nasal stuffiness and hyperglycemia. Patient states that he had not eaten approximate 5 days prior to presentation secondary to nausea. Patient does have lumbar back pain. Patient was noted to be dehydrated by admitting physician and was admitted to the floor with aggressive hydration. While on the floor, patient developed respiratory distress. Reportedly, on arrival by respiratory, patient was noted to be unresponsive and turk. Patient was placed on BiPAP therapy and transferred to the intensive care unit. Patient has not required pressor therapy and did report some improvement following initiation of BiPAP. ABG completed showed significant metabolic acidosis with respiratory compensation and marginal oxygenation. Patient reports that he does see podiatry at the [facility]. Patient states that he has had multiple issues with wound care in the same general area. Patient does report recent antibiotics. Vision is unclear of any influenza exposure. Review of systems otherwise negative x10 systems. Past Medical History Past Medical History (Chronic Problems): Chronic Problems Right foot transmetatarsal amputation (Chronic) TRICIA (obstructive sleep apnea) (Chronic) Wound of foot (Chronic) Hyperlipidemia (Chronic) Diabetes mellitus, type 2 (Chronic) Benign essential hypertension (Chronic) Allergies No Known Allergies Allergy (Verified 05/23/18 23:01) Home Medications: Ambulatory Orders Medication Instructions Recorded Glipizide [Glipizide ER] 5 mg PO BID 05/23/18 Insulin Regular, Human [Novolin R] See Protocol IJ TIDCM 05/23/18 Lisinopril [Zestril] 5 mg PO DAILY 05/23/18 Metformin HCl 500 mg PO BID 05/23/18 Insulin NPH Human [Humulin N Pen] 25 units SC BID #0 05/25/18 Insulin Aspart [Novolog Flexpen] 8 units SC TIDCM 07/19/18 Peg 400/Hypromellose/Glycerin 1 drop LEFT EYE 4X/DAY 07/19/18 [Artificial Tears] Surgical History: - - Right foot surgery x2, initially TMA in 2004 and recent follow-up surgical intervention. Psychiatric History: Anxiety, Depression Smoking Status: Never smoker - *Family History Maternal History Items: Diabetes Paternal History Items: COPD Review of Systems Comment: See HPI Patient Problems: Active and Suspected Problems Right foot soft tissue cellulitis (Acute) Diabetic ulcer of right foot with fat layer exposed (Acute) Type 2 diabetes mellitus with diabetic polyneuropathy (Acute) Delayed wound healing (Acute) Cellulitis of right foot (Acute) Severe sepsis (Acute) Acute respiratory failure with hypoxia (Acute) - Physical Exam General: Alert, Oriented x3, Cooperative, No apparent distress, - - Good BiPAP synchrony. Significantly improved respiratory effort on BiPAP therapy HEENT: Atraumatic, PERRLA, EOMI, Normocephalic, - - No scleral icterus or injection noted. Oral: No Gingival or Mucosal Lesions/ Ulcerations, Dry Mucosa Neck: Supple, No JVD, No Nodes, Trachea Midline Lungs: No rhonchi, No wheeze, No rales, Diminished, - - Symmetric expansion. No dullness to percussion. Cardiovascular: Normal S1, Normal S2, No murmurs, No rub noted, No Gallop, Tachycardic Abdomen: Bowel Sounds Present, Soft, Non Tender, Non-Distended Extremities: No clubbing, No cyanosis, Edema - Right lower extremity Skin: - - Chronic nonhealing wound in the right transmetatarsal amputation site. Granulation tissue and rash noted. Did not see on admission, so unclear if improving Musculoskeletal: No Tenderness to Palpation of Joints or Extremities Lymphatic: No Cervical, Supraclavicular, or Inguinal Adenopathy Neurological: Cranial nerves II-XII grossly intact, Neuro grossly intact, Motor Exam 5/5 strength throughout Psych/Mental Status: Normal Affect, Appropriate Vital Signs Temp Pulse Resp BP Pulse Ox 37.1 C 135 H 30 H 127/89 H 98 07/20/18 08:00 07/20/18 08:00 07/20/18 08:00 07/20/18 08:00 07/20/18 08:00 Oxygen Flow Rate (L/min) 2 Oxygen Delivery Method Bi-pap Weight: 84.2 kg Body Mass Index (BMI) 27.3 Finger Stick Blood Glucose 285 Intake and Output for Last 24 Hours 07/18/18 07/19/18 07/20/18 23:59 23:59 23:59 Intake Total 1711 / 1711 Output Total 150 / 150 Balance 1561 / 1561 Microbiology Past 72 Hours 07/19/18 13:40 Bacteria Detection (PCR) - Preliminary Blood Culture (Wb) - Venous Streptococcus pyogenes Blood Culture - Preliminary Laboratory Tests Past 24 Hrs 07/19/18 07/19/18 07/19/18 13:40 13:40 13:40 WBC 21.9 H RBC 4.10 L Hgb 12.1 L Hct 35.5 L MCV 86.6 MCH 29.5 MCHC 34.1 RDW 13.6 RDW Differential 41.9 Plt Count 302 MPV 9.9 Immature Gran % (Auto) 0.200 Neut % (Auto) 93.9 H Lymph % (Auto) 2.8 L [place] % (Auto) 2.9 Eos % (Auto) 0.0 Baso % (Auto) 0.2 Absolute Neuts (auto) 20.6 H Absolute Lymphs (auto) 0.61 L Total Counted Not Reportable ESR 45 H Specimen Type Sample Site pH Bicarbonate Actual POC Total CO2 Base Excess O2 Saturation O2 % ABG pCO2 ABG pO2 Ladarius Test Respiration Rate O2 Delivery Device EPAP IPAP Blood Gas Notified Whom Blood Gas Notified Time Sodium 127 L Potassium 3.8 Chloride 95 L Carbon Dioxide 21.0 Anion Gap 11 BUN 22 H Creatinine 1.54 H Estim Creat Clear Calc 44.00 Est GFR (MDRD) Af Amer 58 L Est GFR (MDRD) Non-Af 48 L BUN/Creatinine Ratio 14.3 Glucose 311 H Hemoglobin A1c 9.9 H Lactic Acid Calcium 8.2 L Total Bilirubin 0.70 AST 78 H ALT 17 Alkaline Phosphatase 44 L C-React Prot Ext Range 177.00 H Total Protein 7.6 Albumin 2.8 L Globulin 4.8 H Albumin/Globulin Ratio 0.6 L Urine Color Urine Clarity Urine pH Ur Specific [place] Urine Protein Urine Glucose (UA) Urine Ketones Urine Occult Blood Urine Nitrite Urine Bilirubin Urine Urobilinogen Ur Leukocyte Esterase Urine RBC Urine WBC Ur Squamous Epith Cells Urine Bacteria Urine Mucus S.aureus Protein A PCR MRSA (PCR) 07/19/18 07/19/18 07/20/18 16:05 18:45 03:05 WBC RBC Hgb Hct MCV MCH MCHC RDW RDW Differential Plt Count MPV Immature Gran % (Auto) Neut % (Auto) Lymph % (Auto) [place] % (Auto) Eos % (Auto) Baso % (Auto) Absolute Neuts (auto) Absolute Lymphs (auto) Total Counted ESR Specimen Type Sample Site pH Bicarbonate Actual POC Total CO2 Base Excess O2 Saturation O2 % ABG pCO2 ABG pO2 Ladarius Test Respiration Rate O2 Delivery Device EPAP IPAP Blood Gas Notified Whom Blood Gas Notified Time Sodium Potassium Chloride Carbon Dioxide Anion Gap BUN Creatinine Estim Creat Clear Calc Est GFR (MDRD) Af Amer Est GFR (MDRD) Non-Af BUN/Creatinine Ratio Glucose Hemoglobin A1c Lactic Acid 1.7 Calcium Total Bilirubin AST ALT Alkaline Phosphatase C-React Prot Ext Range Total Protein Albumin Globulin Albumin/Globulin Ratio Urine Color Yellow Urine Clarity Sl. Cloudy Urine pH 5.0 Ur Specific [place] 1.020 Urine Protein 100 H Urine Glucose (UA) 1000 H Urine Ketones 15 H Urine Occult Blood 250 H Urine Nitrite Negative Urine Bilirubin Negative Urine Urobilinogen 1 H Ur Leukocyte Esterase 25 H Urine RBC 5-10 SEEN Urine WBC 0-5 SEEN Ur Squamous Epith Cells 0-5 SEEN Urine Bacteria 1+ Urine Mucus 1+ S.aureus Protein A PCR POSITIVE H MRSA (PCR) Negative 07/20/18 07/20/18 07/20/18 05:22 05:45 05:45 WBC 22.1 H RBC 4.29 L Hgb 12.3 L Hct 37.6 L MCV 87.6 MCH 28.7 MCHC 32.7 RDW 14.0 RDW Differential 44.0 H Plt Count 323 MPV 9.9 Immature Gran % (Auto) 0.400 Neut % (Auto) 91.4 H Lymph % (Auto) 3.5 L [place] % (Auto) 4.6 Eos % (Auto) 0.0 Baso % (Auto) 0.1 Absolute Neuts (auto) 20.2 H Absolute Lymphs (auto) 0.78 L Total Counted Not Reportable ESR Specimen Type ART Sample Site L Radial pH 7.28 L Bicarbonate Actual 15.1 L POC Total CO2 16 Base Excess -12 L O2 Saturation 97 O2 % 70 ABG pCO2 32.1 L ABG pO2 106 H Ladarius Test POS Respiration Rate 12 O2 Delivery Device Bi / C PAP EPAP 8 IPAP 16 Blood Gas Notified Whom [facility] Blood Gas Notified Time 515 Sodium 129 L Potassium 3.9 Chloride 101 Carbon Dioxide 18.0 L Anion Gap 10 BUN 21 H Creatinine 1.16 Estim Creat Clear Calc 58.41 Est GFR (MDRD) Af Amer 80 Est GFR (MDRD) Non-Af 66 BUN/Creatinine Ratio 18.1 Glucose 164 H Hemoglobin A1c Lactic Acid Calcium 7.7 L Total Bilirubin AST ALT Alkaline Phosphatase C-React Prot Ext Range Total Protein Albumin Globulin Albumin/Globulin Ratio Urine Color Urine Clarity Urine pH Ur Specific [place] Urine Protein Urine Glucose (UA) Urine Ketones Urine Occult Blood Urine Nitrite Urine Bilirubin Urine Urobilinogen Ur Leukocyte Esterase Urine RBC Urine WBC Ur Squamous Epith Cells Urine Bacteria Urine Mucus S.aureus Protein A PCR MRSA (PCR) 07/20/18 05:45 WBC RBC Hgb Hct MCV MCH MCHC RDW RDW Differential Plt Count MPV Immature Gran % (Auto) Neut % (Auto) Lymph % (Auto) [place] % (Auto) Eos % (Auto) Baso % (Auto) Absolute Neuts (auto) Absolute Lymphs (auto) Total Counted ESR Specimen Type Sample Site pH Bicarbonate Actual POC Total CO2 Base Excess O2 Saturation O2 % ABG pCO2 ABG pO2 Ladarius Test Respiration Rate O2 Delivery Device EPAP IPAP Blood Gas Notified Whom Blood Gas Notified Time Sodium Potassium Chloride Carbon Dioxide Anion Gap BUN Creatinine Estim Creat Clear Calc Est GFR (MDRD) Af Amer Est GFR (MDRD) Non-Af BUN/Creatinine Ratio Glucose Hemoglobin A1c Lactic Acid 2.2 H Calcium Total Bilirubin AST ALT Alkaline Phosphatase C-React Prot Ext Range Total Protein Albumin Globulin Albumin/Globulin Ratio Urine Color Urine Clarity Urine pH Ur Specific [place] Urine Protein Urine Glucose (UA) Urine Ketones Urine Occult Blood Urine Nitrite Urine Bilirubin Urine Urobilinogen Ur Leukocyte Esterase Urine RBC Urine WBC Ur Squamous Epith Cells Urine Bacteria Urine Mucus S.aureus Protein A PCR MRSA (PCR) POC Glucose 07/20/18 07/19/18 07/19/18 07:06 20:48 17:28 POC Glucose 179 H 134 H 232 H 07/19/18 13:20 POC Glucose 285 H Clinical Impression(s) from Imaging Studies Chest X-Ray 07/19/18 13:22 IMPRESSION: No evidence of acute cardiopulmonary process. Electronically Signed: Hebert Negron DO at 14:51 EDT , Service support , Foot X-Ray 07/19/18 13:24 IMPRESSION: Diffuse demineralization with no evidence of karl erosion. Underlying osseous infection cannot be completely excluded. If high clinical suspicion recommend MRI imaging versus nuclear medicine bone scan. Electronically Signed: Hebert Negron DO at 14:50 EDT , Service support , Lumbar Spine X-Ray 07/19/18 16:08 IMPRESSION: Multilevel spondylosis, no fractures Mild distended loops of small bowel, radiographs of the abdomen would be recommended for further evaluation Electronically Signed: Basil Bowden at 20:36 EDT Tel , Service support , Chest X-Ray 07/20/18 05:06 IMPRESSION: Evolving right upper lobe and right perihilar alveolar disease. Evolving bibasilar atelectasis. Electronically Signed: Tyson Garcia MD at 6:24 EDT Tel , Service support , Assessment/Plan Active and Suspected Problems Right foot soft tissue cellulitis (Acute) Diabetic ulcer of right foot with fat layer exposed (Acute) Type 2 diabetes mellitus with diabetic polyneuropathy (Acute) Delayed wound healing (Acute) Cellulitis of right foot (Acute) Severe sepsis (Acute) Acute respiratory failure with hypoxia (Acute) RECOMMENDATIONS: 1. Antibiotic and surgical intervention per ID and podiatry 2. BiPAP rescue as necessary 3. Wean oxygen as tolerated 4. Cannot exclude the need for central line and pressor therapy 5. [facility] IMPRESSIONS: 1. Acute hypoxic respiratory failure secondary to metabolic acidosis and respiratory muscle fatigue Appears to be responding well to BiPAP therapy. Patient was found turk and has responded to BiPAP therapy. ABG shows significant metabolic acidosis with attempt at respiratory compensation. She is on appropriate antibiotics at this time. Lactic is slightly elevated, but patient appears to be volume low. We will continue with volume resuscitation. BiPAP breaks as tolerated. Possibly start a p.o. diet if patient is able to tolerate 1 hour off of BiPAP. 2. Severe sepsis secondary to right foot cellulitis Anxious disease and podiatry have been consulted. Patient currently has strep pyogenes noted out of blood cultures, which fits with current clinical situation. Cannot exclude deterioration over the next 24 hours. Patient may require central line with pressor therapy. We will continue to monitor in the intensive care unit 3. Diabetes mellitus type 2 Patient significant elevation in blood sugars, likely secondary to #2. We will continue to monitor closely and cover with sliding scale insulin. 4. Hyponatremia/hypochloremia/acute back pain/chronic wound/hypertension/TRICIA Complicates care, management, recovery and prognosis. Patient appears to have hypovolemic hyponatremia and hypochloremia. Patient is on aggressive volume resuscitation. Renal function appears to be improving. We will continue to monitor closely. TIME: 33 minutes of critical care time spent addressing patient's respiratory failure, severe sepsis, diabetes mellitus, review of all data and collaboration with care team (8 AM to 9:40 AM)
--- NOTE | 2018-07-20 09:34 | CON.PCM_ITS ---
Problem List (1) Severe sepsis Status: Acute (2) Acute respiratory failure with hypoxia Status: Acute (3) Right foot soft tissue cellulitis Status: Acute (4) Right foot transmetatarsal amputation Status: Chronic (5) Type 2 diabetes mellitus with diabetic polyneuropathy Status: Acute (6) Delayed wound healing Status: Acute (7) TRICIA (obstructive sleep apnea) Status: Chronic (8) Hyperlipidemia Status: Chronic Qualifiers: (9) Diabetes mellitus, type 2 Status: Chronic Qualifiers: (10) Benign essential hypertension Status: Chronic Reason for Consult Date of Consultation: 07/20/18 - Late entry Reason for Consultation: Respiratory failure History of Present Illness: The patient is a 73 year old M, with past medical history listed below, who presented to [facility] on 07/19/2018 secondary to a right foot infection. Patient reportedly had an amputation in February 2018 at the [facility] [place]. Patient presented with history of fever, chills, nausea and exudate from the right foot. Patient had reported some URI type symptoms with nasal stuffiness and hyperglycemia. Patient states that he had not eaten approximate 5 days prior to presentation secondary to nausea. Patient does have lumbar back pain. Patient was noted to be dehydrated by admitting physician and was admitted to the floor with aggressive hydration. While on the floor, patient developed respiratory distress. Reportedly, on arrival by respiratory, patient was noted to be unresponsive and turk. Patient was placed on BiPAP therapy and transferred to the intensive care unit. Patient has not required pressor therapy and did report some improvement following initiation of BiPAP. ABG completed showed significant metabolic acidosis with respiratory compensation and marginal oxygenation. Patient reports that he does see podiatry at the [facility]. Patient states that he has had multiple issues with wound care in the same general area. Patient does report recent antibiotics. Vision is unclear of any influenza exposure. Review of systems otherwise negative x10 systems. Past Medical History Past Medical History (Chronic Problems): Chronic Problems Right foot transmetatarsal amputation (Chronic) TRICIA (obstructive sleep apnea) (Chronic) Wound of foot (Chronic) Hyperlipidemia (Chronic) Diabetes mellitus, type 2 (Chronic) Benign essential hypertension (Chronic) Allergies No Known Allergies Allergy (Verified 05/23/18 23:01) Home Medications: Ambulatory Orders Medication Instructions Recorded Glipizide [Glipizide ER] 5 mg PO BID 05/23/18 Insulin Regular, Human [Novolin R] See Protocol IJ TIDCM 05/23/18 Lisinopril [Zestril] 5 mg PO DAILY 05/23/18 Metformin HCl 500 mg PO BID 05/23/18 Insulin NPH Human [Humulin N Pen] 25 units SC BID #0 05/25/18 Insulin Aspart [Novolog Flexpen] 8 units SC TIDCM 07/19/18 Peg 400/Hypromellose/Glycerin 1 drop LEFT EYE 4X/DAY 07/19/18 [Artificial Tears] Surgical History: - - Right foot surgery x2, initially TMA in 2004 and recent follow-up surgical intervention. Psychiatric History: Anxiety, Depression Smoking Status: Never smoker - *Family History Maternal History Items: Diabetes Paternal History Items: COPD Review of Systems Comment: See HPI Patient Problems: Active and Suspected Problems Right foot soft tissue cellulitis (Acute) Diabetic ulcer of right foot with fat layer exposed (Acute) Type 2 diabetes mellitus with diabetic polyneuropathy (Acute) Delayed wound healing (Acute) Cellulitis of right foot (Acute) Severe sepsis (Acute) Acute respiratory failure with hypoxia (Acute) - Physical Exam General: Alert, Oriented x3, Cooperative, No apparent distress, - - Good BiPAP synchrony. Significantly improved respiratory effort on BiPAP therapy HEENT: Atraumatic, PERRLA, EOMI, Normocephalic, - - No scleral icterus or injection noted. Oral: No Gingival or Mucosal Lesions/ Ulcerations, Dry Mucosa Neck: Supple, No JVD, No Nodes, Trachea Midline Lungs: No rhonchi, No wheeze, No rales, Diminished, - - Symmetric expansion. No dullness to percussion. Cardiovascular: Normal S1, Normal S2, No murmurs, No rub noted, No Gallop, Tachy cardic Abdomen: Bowel Sounds Present, Soft, Non Tender, Non-Distended Extremities: No clubbing, No cyanosis, Edema - Right lower extremity Skin: - - Chronic nonhealing wound in the right transmetatarsal amputation site. Granulation tissue and rash noted. Did not see on admission, so unclear if improving Musculoskeletal: No Tenderness to Palpation of Joints or Extremities Lymphatic: No Cervical, Supraclavicular, or Inguinal Adenopathy Neurological: Cranial nerves II-XII grossly intact, Neuro grossly intact, Motor Exam 5/5 strength throughout Psych/Mental Status: Normal Affect, Appropriate Vital Signs Temp Pulse Resp BP Pulse Ox 37.1 C 135 H 30 H 127/89 H 98 07/20/18 08:00 07/20/18 08:00 07/20/18 08:00 07/20/18 08:00 07/20/18 08:00 Oxygen Flow Rate (L/min) 2 Oxygen Delivery Method Bi-pap Weight: 84.2 kg Body Mass Index (BMI) 27.3 Finger Stick Blood Glucose 285 Intake and Output for Last 24 Hours 07/18/18 07/19/18 07/20/18 23:59 23:59 23:59 Intake Total 1711 / 1711 Output Total 150 / 150 Balance 1561 / 1561 Microbiology Past 72 Hours 07/19/18 13:40 Bacteria Detection (PCR) - Preliminary Blood Culture (Wb) - Venous Streptococcus pyogenes Blood Culture - Preliminary Laboratory Tests Past 24 Hrs 07/19/18 07/19/18 07/19/18 13:40 13:40 13:40 WBC 21.9 H RBC 4.10 L Hgb 12.1 L Hct 35.5 L MCV 86.6 MCH 29.5 MCHC 34.1 RDW 13.6 RDW Differential 41.9 Plt Count 302 MPV 9.9 Immature Gran % (Auto) 0.200 Neut % (Auto) 93.9 H Lymph % (Auto) 2.8 L [place] % (Auto) 2.9 Eos % (Auto) 0.0 Baso % (Auto) 0.2 Absolute Neuts (auto) 20.6 H Absolute Lymphs (auto) 0.61 L Total Counted Not Reportable ESR 45 H Specimen Type Sample Site pH Bicarbonate Actual POC Total CO2 Base Excess O2 Saturation O2 % ABG pCO2 ABG pO2 [place] Test Respiration Rate O2 Delivery Device EPAP IPAP Blood Gas Notified Whom Blood Gas Notified Time Sodium 127 L Potassium 3.8 Chloride 95 L Carbon Dioxide 21.0 Anion Gap 11 BUN 22 H Creatinine 1.54 H Estim Creat Clear Calc 44.00 Est GFR (MDRD) Af Amer 58 L Est GFR (MDRD) Non-Af 48 L BUN/Creatinine Ratio 14.3 Glucose 311 H Hemoglobin A1c 9.9 H Lactic Acid Calcium 8.2 L Total Bilirubin 0.70 AST 78 H ALT 17 Alkaline Phosphatase 44 L C-React Prot Ext Range 177.00 H Total Protein 7.6 Albumin 2.8 L Globulin 4.8 H Albumin/Globulin Ratio 0.6 L Urine Color Urine Clarity Urine pH Ur Specific [place] Urine Protein Urine Glucose (UA) Urine Ketones Urine Occult Blood Urine Nitrite Urine Bilirubin Urine Urobilinogen Ur Leukocyte Esterase Urine RBC Urine WBC Ur Squamous Epith Cells Urine Bacteria Urine Mucus S.aureus Protein A PCR MRSA (PCR) 07/19/18 07/19/18 07/20/18 16:05 18:45 03:05 WBC RBC Hgb Hct MCV MCH MCHC RDW RDW Differential Plt Count MPV Immature Gran % (Auto) Neut % (Auto) Lymph % (Auto) [place] % (Auto) Eos % (Auto) Baso % (Auto) Absolute Neuts (auto) Absolute Lymphs (auto) Total Counted ESR Specimen Type Sample Site pH Bicarbonate Actual POC Total CO2 Base Excess O2 Saturation O2 % ABG pCO2 ABG pO2 [place] Test Respiration Rate O2 Delivery Device EPAP IPAP Blood Gas Notified Whom Blood Gas Notified Time Sodium Potassium Chloride Carbon Dioxide Anion Gap BUN Creatinine Estim Creat Clear Calc Est GFR (MDRD) Af Amer Est GFR (MDRD) Non-Af BUN/Creatinine Ratio Glucose Hemoglobin A1c Lactic Acid 1.7 Calcium Total Bilirubin AST ALT Alkaline Phosphatase C-React Prot Ext Range Total Protein Albumin Globulin Albumin/Globulin Ratio Urine Color Yellow Urine Clarity Sl. Cloudy Urine pH 5.0 Ur Specific [place] 1.020 Urine Protein 100 H Urine Glucose (UA) 1000 H Urine Ketones 15 H Urine Occult Blood 250 H Urine Nitrite Negative Urine Bilirubin Negative Urine Urobilinogen 1 H Ur Leukocyte Esterase 25 H Urine RBC 5-10 SEEN Urine WBC 0-5 SEEN Ur Squamous Epith Cells 0-5 SEEN Urine Bacteria 1+ Urine Mucus 1+ S.aureus Protein A PCR POSITIVE H MRSA (PCR) Negative 07/20/18 07/20/18 07/20/18 05:22 05:45 05:45 WBC 22.1 H RBC 4.29 L Hgb 12.3 L Hct 37.6 L MCV 87.6 MCH 28.7 MCHC 32.7 RDW 14.0 RDW Differential 44.0 H Plt Count 323 MPV 9.9 Immature Gran % (Auto) 0.400 Neut % (Auto) 91.4 H Lymph % (Auto) 3.5 L [place] % (Auto) 4.6 Eos % (Auto) 0.0 Baso % (Auto) 0.1 Absolute Neuts (auto) 20.2 H Absolute Lymphs (auto) 0.78 L Total Counted Not Reportable ESR Specimen Type ART Sample Site L Radial pH 7.28 L Bicarbonate Actual 15.1 L POC Total CO2 16 Base Excess -12 L O2 Saturation 97 O2 % 70 ABG pCO2 32.1 L ABG pO2 106 H [place] Test POS Respiration Rate 12 O2 Delivery Device Bi / C PAP EPAP 8 IPAP 16 Blood Gas Notified Whom [facility] Blood Gas Notified Time 515 Sodium 129 L Potassium 3.9 Chloride 101 Carbon Dioxide 18.0 L Anion Gap 10 BUN 21 H Creatinine 1.16 Estim Creat Clear Calc 58.41 Est GFR (MDRD) Af Amer 80 Est GFR (MDRD) Non-Af 66 BUN/Creatinine Ratio 18.1 Glucose 164 H Hemoglobin A1c Lactic Acid Calcium 7.7 L Total Bilirubin AST ALT Alkaline Phosphatase C-React Prot Ext Range Total Protein Albumin Globulin Albumin/Globulin Ratio Urine Color Urine Clarity Urine pH Ur Specific [place] Urine Protein Urine Glucose (UA) Urine Ketones Urine Occult Blood Urine Nitrite Urine Bilirubin Urine Urobilinogen Ur Leukocyte Esterase Urine RBC Urine WBC Ur Squamous Epith Cells Urine Bacteria Urine Mucus S.aureus Protein A PCR MRSA (PCR) 07/20/18 05:45 WBC RBC Hgb Hct MCV MCH MCHC RDW RDW Differential Plt Count MPV Immature Gran % (Auto) Neut % (Auto) Lymph % (Auto) [place] % (Auto) Eos % (Auto) Baso % (Auto) Absolute Neuts (auto) Absolute Lymphs (auto) Total Counted ESR Specimen Type Sample Site pH Bicarbonate Actual POC Total CO2 Base Excess O2 Saturation O2 % ABG pCO2 ABG pO2 [place] Test Respiration Rate O2 Delivery Device EPAP IPAP Blood Gas Notified Whom Blood Gas Notified Time Sodium Potassium Chloride Carbon Dioxide Anion Gap BUN Creatinine Estim Creat Clear Calc Est GFR (MDRD) Af Amer Est GFR (MDRD) Non-Af BUN/Creatinine Ratio Glucose Hemoglobin A1c Lactic Acid 2.2 H Calcium Total Bilirubin AST ALT Alkaline Phosphatase C-React Prot Ext Range Total Protein Albumin Globulin Albumin/Globulin Ratio Urine Color Urine Clarity Urine pH Ur Specific [place] Urine Protein Urine Glucose (UA) Urine Ketones Urine Occult Blood Urine Nitrite Urine Bilirubin Urine Urobilinogen Ur Leukocyte Esterase Urine RBC Urine WBC Ur Squamous Epith Cells Urine Bacteria Urine Mucus S.aureus Protein A PCR MRSA (PCR) POC Glucose 07/20/18 07/19/18 07/19/18 07:06 20:48 17:28 POC Glucose 179 H 134 H 232 H 07/19/18 13:20 POC Glucose 285 H Clinical Impression(s) from Imaging Studies Chest X-Ray 07/19/18 13:22 IMPRESSION: No evidence of acute cardiopulmonary process. Electronically Signed: Hebert Negron DO at 14:51 EDT , Service support , Foot X-Ray 07/19/18 13:24 IMPRESSION: Diffuse demineralization with no evidence of karl erosion. Underlying osseous infection cannot be completely excluded. If high clinical suspicion recommend MRI imaging versus nuclear medicine bone scan. Electronically Signed: Hebert Negron DO at 14:50 EDT , Service support , Lumbar Spine X-Ray 07/19/18 16:08 IMPRESSION: Multilevel spondylosis, no fractures Mild distended loops of small bowel, radiographs of the abdomen would be recommended for further evaluation Electronically Signed: Basil Bowden at 20:36 EDT Tel , Service support , Chest X-Ray 07/20/18 05:06 IMPRESSION: Evolving right upper lobe and right perihilar alveolar disease. Evolving bibasilar atelectasis. Electronically Signed: Tyson Garcia MD at 6:24 EDT Tel , Service support , Assessment/Plan Active and Suspected Problems Right foot soft tissue cellulitis (Acute) Diabetic ulcer of right foot with fat layer exposed (Acute) Type 2 diabetes mellitus with diabetic polyneuropathy (Acute) Delayed wound healing (Acute) Cellulitis of right foot (Acute) Severe sepsis (Acute) Acute respiratory failure with hypoxia (Acute) RECOMMENDATIONS: 1. Antibiotic and surgical intervention per ID and podiatry 2. BiPAP rescue as necessary 3. Wean oxygen as tolerated 4. Cannot exclude the need for central line and pressor therapy 5. [facility] IMPRESSIONS: 1. Acute hypoxic respiratory failure secondary to metabolic acidosis and respiratory muscle fatigue Appears to be responding well to BiPAP therapy. Patient was found turk and has responded to BiPAP therapy. ABG shows significant metabolic acidosis with attempt at respiratory compensation. She is on appropriate antibiotics at this time. Lactic is slightly elevated, but patient appears to be volume low. We will continue with volume resuscitation. BiPAP breaks as tolerated. Possibly start a p.o. diet if patient is able to tolerate 1 hour off of BiPAP. 2. Severe sepsis secondary to right foot cellulitis Anxious disease and podiatry have been consulted. Patient currently has strep pyogenes noted out of blood cultures, which fits with current clinical situation. Cannot exclude deterioration over the next 24 hours. Patient may require central line with pressor therapy. We will continue to monitor in the intensive care unit 3. Diabetes mellitus type 2 Patient significant elevation in blood sugars, likely secondary to #2. We will continue to monitor closely and cover with sliding scale insulin. 4. Hyponatremia/hypochloremia/acute back pain/chronic wound/hypertension/TRICIA Complicates care, management, recovery and prognosis. Patient appears to have hypovolemic hyponatremia and hypochloremia. Patient is on aggressive volume resuscitation. Renal function appears to be improving. We will continue to monitor closely. TIME: 33 minutes of critical care time spent addressing patient's respiratory failure, severe sepsis, diabetes mellitus, review of all data and collaboration with care team (8 AM to 9:40 AM)
[2018-07-20 10:06] LABS: Reflex Lactate? Y
[2018-07-20 10:15] LABS: Bedside Glucose 150 mg/dL (70-110)
--- NOTE | 2018-07-20 10:18 | CASEMGMT ---
Addendum entered by Moy Moseley 07/21/18 10:05: Pt has home health aide services through the [place] and [facility] aides. -[place] Direct Sales Professional: Huang Griffiths PH: [phone] - [facility] [phone]. Per Nadia, pt receives 10 hours/week of aide services. Carissa GARZAN RN ACM Original Note: RN CM Assessment [facility] TRANSFER: Per physician, transfer to [place] is recommended. RN CM spoke with pt who is agreeable. -RN CM called to [facility] transfer line x [phone]. Spoke with rep who took information for pt and notified transfer is requested to [place] [facility]. Case will be assigned to research program coordinator who will contact RN CM. -Daughter updated via phone re: pending transfer to [facility] and she is also agreeable for transfer. Presentation: Sepsis, ?osteo foot, cellulits R foot. Intro role of CM and purpose of RN CM assessment to patient in room. Limited ability to participate as pt had BIPAP on. RN CM asked if daughter could be contacted and pt agreed. Demographics, PCP and Pharmacy verified. -Call to daughter, Ac Kate who was able to participate in assessment. States pt has his own home, but is living with her presently. Is able to return to her home on dc. PCP: Mr. Tawanda Haddad, physician Assistance with [facility]. (Dr. Vargas is physician). Called [facility] to verify. Specialists: ID/Podiatry consults in hospital [facility] Short [facility] medications on dc will need to be through [facility] Insurance: [facility] benefits/MCR Prescription Benefit: through [facility] LNOK: Daughter, Ac Kate Living Arrangements: Pt is currently living with daughter. Two story home. Pt is able to ambulate and needs some assist with ADL's. Transportation: Daughter can provide transportation, but works also. DME: crutches, cane, knee walker. CPAP, not functioning, but daughter stated [facility] was working [facility] providing another. HHC: none Patient DC goals: Home DC PLAN: undetermined. If bed available, plan is to transfer to [facility]. If pt continues stay @ [facility], CM will follow to assist with dc planning.
[2018-07-20] MEDS: Lactated Ringers 1,000 ML 999 ML IV (10:30)
[2018-07-20 10:48] LABS: BNP,B-Type NATRIURETIC PEPTIDE 1158.3 pg/mL (0-100)
[2018-07-20] MEDS: Enoxaparin 40 MG/0.4 ML Syringe SC (11:12)
[2018-07-20] MEDS: 0.9% Normal Saline 1,000 ML 75 ML IV (12:14)
[2018-07-20 12:26] LABS: Bedside Glucose 162 mg/dL (70-110)
--- NOTE | 2018-07-20 15:26 | CASEMGMT ---
RN CM Note: [facility] to [facility]. Spoke with Krystle- further information given and clinical faxed to . -Call back given for RN CM and unit phone # if CM is unavailable. They will review and contact [facility]. Carissa GARZAN RN ACM
--- NOTE | 2018-07-20 16:08 | PCM.HP.ID ---
Problem List (1) Cellulitis of right foot Status: Acute Reason for Consult: bacteremia Consulted by: Dr. Hansen History of Present Illness: The patient is a 73 year old M with prior R TMA who presented to ED at [facility] 07/19 with several days of not feeling well, increased R foot redness, pain, swelling. No fever, some mild chills. Had elevated lactate, Cr, and wbc. Admitted on vanc/zosyn after dose of clinda. MRI foot pending. Overnight had increased SOB, cough. Transferred to icu. Bcx now with GAS. Feeling better, on nippv. MSSA pcr (+) of wound. Full ROS performed and neg except as noted above. - Medical History Past Medical History (Chronic Problems): Chronic Problems Right foot transmetatarsal amputation (Chronic) TRICIA (obstructive sleep apnea) (Chronic) Wound of foot (Chronic) Hyperlipidemia (Chronic) Diabetes mellitus, type 2 (Chronic) Benign essential hypertension (Chronic) Allergies/Adverse Reactions: Allergies No Known Allergies Allergy (Verified 05/23/18 23:01) Home Medications: Ambulatory Orders Medication Instructions Recorded Glipizide [Glipizide ER] 5 mg PO BID 05/23/18 Insulin Regular, Human [Novolin R] See Protocol IJ TIDCM 05/23/18 Lisinopril [Zestril] 5 mg PO DAILY 05/23/18 Metformin HCl 500 mg PO BID 05/23/18 Insulin NPH Human [Humulin N Pen] 25 units SC BID #0 05/25/18 Insulin Aspart [Novolog Flexpen] 8 units SC TIDCM 07/19/18 Peg 400/Hypromellose/Glycerin 1 drop LEFT EYE 4X/DAY 07/19/18 [Artificial Tears] - Social History Tobacco Use: non-smoker Vital Signs Temp Pulse Resp BP Pulse Ox 98.2 F 154 H 32 H 111/92 H 99 07/20/18 12:00 07/20/18 13:15 07/20/18 13:15 07/20/18 13:00 07/20/18 13:15 Oxygen Flow Rate (L/min) 4 Oxygen Delivery Method Bi-pap Weight: 84.2 kg Body Mass Index (BMI) 27.3 Finger Stick Blood Glucose 285 Microbiology Past 72 Hours 07/20/18 07:30 Respiratory Panel (PCR) - Final Mucosa - Nasopharyngeal 07/19/18 18:45 Gram Stain - Final Wound - Right Foot Wound Culture - Preliminary Streptococcus group A 07/19/18 13:40 Bacteria Detection (PCR) - Preliminary Blood Culture (Wb) - Venous Streptococcus pyogenes Blood Culture - Preliminary Laboratory Tests Past 24 Hrs 07/19/18 07/19/18 07/19/18 13:40 16:05 18:45 WBC RBC Hgb Hct MCV MCH MCHC RDW RDW Differential Plt Count MPV Immature Gran % (Auto) Neut % (Auto) Lymph % (Auto) [place] % (Auto) Eos % (Auto) Baso % (Auto) Absolute Neuts (auto) Absolute Lymphs (auto) Total Counted Specimen Type Sample Site pH Bicarbonate Actual POC Total CO2 Base Excess O2 Saturation O2 % ABG pCO2 ABG pO2 [place] Test Respiration Rate O2 Delivery Device EPAP IPAP Blood Gas Notified Whom Blood Gas Notified Time Sodium Potassium Chloride Carbon Dioxide Anion Gap BUN Creatinine Estim Creat Clear Calc Est GFR (MDRD) Af Amer Est GFR (MDRD) Non-Af BUN/Creatinine Ratio Glucose Hemoglobin A1c 9.9 H Lactic Acid 1.7 Calcium B-Natriuretic Peptide Urine Color Urine Clarity Urine pH Ur Specific [place] Urine Protein Urine Glucose (UA) Urine Ketones Urine Occult Blood Urine Nitrite Urine Bilirubin Urine Urobilinogen Ur Leukocyte Esterase Urine RBC Urine WBC Ur Squamous Epith Cells Urine Bacteria Urine Mucus S.aureus Protein A PCR POSITIVE H MRSA (PCR) Negative 07/20/18 07/20/18 07/20/18 03:05 05:22 05:45 WBC 22.1 H RBC 4.29 L Hgb 12.3 L Hct 37.6 L MCV 87.6 MCH 28.7 MCHC 32.7 RDW 14.0 RDW Differential 44.0 H Plt Count 323 MPV 9.9 Immature Gran % (Auto) 0.400 Neut % (Auto) 91.4 H Lymph % (Auto) 3.5 L [place] % (Auto) 4.6 Eos % (Auto) 0.0 Baso % (Auto) 0.1 Absolute Neuts (auto) 20.2 H Absolute Lymphs (auto) 0.78 L Total Counted Not Reportable Specimen Type ART Sample Site L Radial pH 7.28 L Bicarbonate Actual 15.1 L POC Total CO2 16 Base Excess -12 L O2 Saturation 97 O2 % 70 ABG pCO2 32.1 L ABG pO2 106 H [place] Test POS Respiration Rate 12 O2 Delivery Device Bi / C PAP EPAP 8 IPAP 16 Blood Gas Notified Whom [facility] Blood Gas Notified Time 515 Sodium Potassium Chloride Carbon Dioxide Anion Gap BUN Creatinine Estim Creat Clear Calc Est GFR (MDRD) Af Amer Est GFR (MDRD) Non-Af BUN/Creatinine Ratio Glucose Hemoglobin A1c Lactic Acid Calcium B-Natriuretic Peptide Urine Color Yellow Urine Clarity Sl. Cloudy Urine pH 5.0 Ur Specific [place] 1.020 Urine Protein 100 H Urine Glucose (UA) 1000 H Urine Ketones 15 H Urine Occult Blood 250 H Urine Nitrite Negative Urine Bilirubin Negative Urine Urobilinogen 1 H Ur Leukocyte Esterase 25 H Urine RBC 5-10 SEEN Urine WBC 0-5 SEEN Ur Squamous Epith Cells 0-5 SEEN Urine Bacteria 1+ Urine Mucus 1+ S.aureus Protein A PCR MRSA (PCR) 07/20/18 07/20/18 07/20/18 05:45 05:45 05:45 WBC RBC Hgb Hct MCV MCH MCHC RDW RDW Differential Plt Count MPV Immature Gran % (Auto) Neut % (Auto) Lymph % (Auto) [place] % (Auto) Eos % (Auto) Baso % (Auto) Absolute Neuts (auto) Absolute Lymphs (auto) Total Counted Specimen Type Sample Site pH Bicarbonate Actual POC Total CO2 Base Excess O2 Saturation O2 % ABG pCO2 ABG pO2 [place] Test Respiration Rate O2 Delivery Device EPAP IPAP Blood Gas Notified Whom Blood Gas Notified Time Sodium 129 L Potassium 3.9 Chloride 101 Carbon Dioxide 18.0 L Anion Gap 10 BUN 21 H Creatinine 1.16 Estim Creat Clear Calc 58.41 Est GFR (MDRD) Af Amer 80 Est GFR (MDRD) Non-Af 66 BUN/Creatinine Ratio 18.1 Glucose 164 H Hemoglobin A1c Lactic Acid 2.2 H Calcium 7.7 L B-Natriuretic Peptide 1158.3 H Urine Color Urine Clarity Urine pH Ur Specific [place] Urine Protein Urine Glucose (UA) Urine Ketones Urine Occult Blood Urine Nitrite Urine Bilirubin Urine Urobilinogen Ur Leukocyte Esterase Urine RBC Urine WBC Ur Squamous Epith Cells Urine Bacteria Urine Mucus S.aureus Protein A PCR MRSA (PCR) 07/20/18 10:50 WBC RBC Hgb Hct MCV MCH MCHC RDW RDW Differential Plt Count MPV Immature Gran % (Auto) Neut % (Auto) Lymph % (Auto) [place] % (Auto) Eos % (Auto) Baso % (Auto) Absolute Neuts (auto) Absolute Lymphs (auto) Total Counted Specimen Type Sample Site pH Bicarbonate Actual POC Total CO2 Base Excess O2 Saturation O2 % ABG pCO2 ABG pO2 [place] Test Respiration Rate O2 Delivery Device EPAP IPAP Blood Gas Notified Whom Blood Gas Notified Time Sodium Potassium Chloride Carbon Dioxide Anion Gap BUN Creatinine Estim Creat Clear Calc Est GFR (MDRD) Af Amer Est GFR (MDRD) Non-Af BUN/Creatinine Ratio Glucose Hemoglobin A1c Lactic Acid 2.0 Calcium B-Natriuretic Peptide Urine Color Urine Clarity Urine pH Ur Specific [place] Urine Protein Urine Glucose (UA) Urine Ketones Urine Occult Blood Urine Nitrite Urine Bilirubin Urine Urobilinogen Ur Leukocyte Esterase Urine RBC Urine WBC Ur Squamous Epith Cells Urine Bacteria Urine Mucus S.aureus Protein A PCR MRSA (PCR) - Other Studies Radiology: [] reviewed Other Studies: [] Route of nutrition/ use of supplements: [] Nutritional Intake: [] IV Site: [] [place] Catheter: [] - Physical Exam General: Alert, Oriented x3, Cooperative, No apparent distress HEENT: Atraumatic, PERRLA, EOMI Neck: Supple, No Nodes Lungs: Diminished, Wheezes Cardiovascular: Tachycardic Abdomen: Soft, Non Tender, Non-Distended Extremities: Edema Skin: Ulcer/ Wound - R foot with prior TMA IV Site: Peripheral, without redness Musculoskeletal: No Tenderness to Palpation of Joints or Extremities Neurological: Cranial nerves II-XII grossly intact - Assessment/Plan Antibiotics: [] Assessment/Plan: [] Active and Suspected Problems Right foot soft tissue cellulitis (Acute) Diabetic ulcer of right foot with fat layer exposed (Acute) Type 2 diabetes mellitus with diabetic polyneuropathy (Acute) Delayed wound healing (Acute) Cellulitis of right foot (Acute) Severe sepsis (Acute) Acute respiratory failure with hypoxia (Acute) Severe sepsis with GAS bacteremia from R foot infection with suspected osteo - Per notes, wound probes to bone. MSSA pcr also (+). Course complicated by acute respiratory failure and VERÓNICA. Cont vanc/zosyn for now. Will follow, thank you.
[2018-07-20] MEDS: oxyCODONE 5 MG Tablet PO (16:56)
[2018-07-20 19:36] LABS: Bedside Glucose 155 mg/dL (70-110)
[2018-07-20] MEDS: 0.9% NaCl Peripheral Flush Adult/Peds IV (21:12)
[2018-07-20 21:50] LABS: Bedside Glucose 402 mg/dL (70-110)
--- NOTE | 2018-07-20 23:18 | PN_ITS ---
Patient Problems: Active and Suspected Problems Right foot soft tissue cellulitis (Acute) Diabetic ulcer of right foot with fat layer exposed (Acute) Type 2 diabetes mellitus with diabetic polyneuropathy (Acute) Delayed wound healing (Acute) Cellulitis of right foot (Acute) Severe sepsis (Acute) Acute respiratory failure with hypoxia (Acute) Subjective: Patient was seen today at bedside for follow up on right foot ulceration. Patient daughter is present, she admits patient is very nonadherent, and walks all over foot and wound site, states he does not stay off of it as she was told to multiple times. He relates he has had 5 surgeries on foot already, now it is re-infected and MRI shows bone marrow edema c/w osteomyelitis. He has bacteremia (strep). 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 Patient has no new complaints. Patient is on antibiotics per ID. Patient with no complaints of fever, chills, nausea or vomiting at this time. - Physical Exam General: Alert, Oriented x3, Cooperative, No apparent distress Extremities: Capillary Refill Less than 3 Seconds, No Calf Tenderness, - - Ulcer noted to distal plantar right foot at the end of his TMA site. The base of the ulcer was noted to be a mixture of adherent fibrin andgranular tissue. There is one small area near the center of the ulcer site that was shown to probe to bone. There is no purulence, no malodor appreciated. There is some surrounding erythema, but minimal and fading away. There is no proximal streaking cellulitis noted. No crepitus on palpation. No maloder, no fluctuance, no visible abscess. No gas on xray. No ulcer wounds or tissue loss. No evidence of acute ischemia. Vital Signs Temp Pulse Resp BP Pulse Ox 99.8 F H 100 23 H 124/69 H 91 07/20/18 20:00 07/20/18 22:00 07/20/18 22:00 07/20/18 22:00 07/20/18 22:00 Oxygen Flow Rate (L/min) 4 Oxygen Delivery Method Nasal Cannula Weight: 84.2 kg Body Mass Index (BMI) 27.3 Finger Stick Blood Glucose 285 Intake and Output for Last 24 Hours 07/18/18 07/19/18 07/20/18 23:59 23:59 23:59 Intake Total 4723.2 / 4723.2 Output Total 400 / 400 Balance 4323.2 / 4323.2 Microbiology Past 72 Hours 07/20/18 07:30 Respiratory Panel (PCR) - Final Mucosa - Nasopharyngeal 07/19/18 18:45 Gram Stain - Final Wound - Right Foot Wound Culture - Preliminary Streptococcus group A 07/19/18 13:40 Bacteria Detection (PCR) - Preliminary Blood Culture (Wb) - Venous Streptococcus pyogenes Blood Culture - Preliminary Laboratory Tests Past 24 Hrs 07/20/18 07/20/18 07/20/18 03:05 05:22 05:45 WBC 22.1 H RBC 4.29 L Hgb 12.3 L Hct 37.6 L MCV 87.6 MCH 28.7 MCHC 32.7 RDW 14.0 RDW Differential 44.0 H Plt Count 323 MPV 9.9 Immature Gran % (Auto) 0.400 Neut % (Auto) 91.4 H Lymph % (Auto) 3.5 L [place] % (Auto) 4.6 Eos % (Auto) 0.0 Baso % (Auto) 0.1 Absolute Neuts (auto) 20.2 H Absolute Lymphs (auto) 0.78 L Total Counted Not Reportable Specimen Type ART Sample Site L Radial pH 7.28 L Bicarbonate Actual 15.1 L POC Total CO2 16 Base Excess -12 L O2 Saturation 97 O2 % 70 ABG pCO2 32.1 L ABG pO2 106 H [place] Test POS Respiration Rate 12 O2 Delivery Device Bi / C PAP EPAP 8 IPAP 16 Blood Gas Notified Whom HOS[facility] Blood Gas Notified Time 515 Sodium Potassium Chloride Carbon Dioxide Anion Gap BUN Creatinine Estim Creat Clear Calc Est GFR (MDRD) Af Amer Est GFR (MDRD) Non-Af BUN/Creatinine Ratio Glucose Lactic Acid Calcium B-Natriuretic Peptide Urine Color Yellow Urine Clarity Sl. Cloudy Urine pH 5.0 Ur Specific [place] 1.020 Urine Protein 100 H Urine Glucose (UA) 1000 H Urine Ketones 15 H Urine Occult Blood 250 H Urine Nitrite Negative Urine Bilirubin Negative Urine Urobilinogen 1 H Ur Leukocyte Esterase 25 H Urine RBC 5-10 SEEN Urine WBC 0-5 SEEN Ur Squamous Epith Cells 0-5 SEEN Urine Bacteria 1+ Urine Mucus 1+ 07/20/18 07/20/18 07/20/18 05:45 05:45 05:45 WBC RBC Hgb Hct MCV MCH MCHC RDW RDW Differential Plt Count MPV Immature Gran % (Auto) Neut % (Auto) Lymph % (Auto) [place] % (Auto) Eos % (Auto) Baso % (Auto) Absolute Neuts (auto) Absolute Lymphs (auto) Total Counted Specimen Type Sample Site pH Bicarbonate Actual POC Total CO2 Base Excess O2 Saturation O2 % ABG pCO2 ABG pO2 [place] Test Respiration Rate O2 Delivery Device EPAP IPAP Blood Gas Notified Whom Blood Gas Notified Time Sodium 129 L Potassium 3.9 Chloride 101 Carbon Dioxide 18.0 L Anion Gap 10 BUN 21 H Creatinine 1.16 Estim Creat Clear Calc 58.41 Est GFR (MDRD) Af Amer 80 Est GFR (MDRD) Non-Af 66 BUN/Creatinine Ratio 18.1 Glucose 164 H Lactic Acid 2.2 H Calcium 7.7 L B-Natriuretic Peptide 1158.3 H Urine Color Urine Clarity Urine pH Ur Specific [place] Urine Protein Urine Glucose (UA) Urine Ketones Urine Occult Blood Urine Nitrite Urine Bilirubin Urine Urobilinogen Ur Leukocyte Esterase Urine RBC Urine WBC Ur Squamous Epith Cells Urine Bacteria Urine Mucus 07/20/18 10:50 WBC RBC Hgb Hct MCV MCH MCHC RDW RDW Differential Plt Count MPV Immature Gran % (Auto) Neut % (Auto) Lymph % (Auto) [place] % (Auto) Eos % (Auto) Baso % (Auto) Absolute Neuts (auto) Absolute Lymphs (auto) Total Counted Specimen Type Sample Site pH Bicarbonate Actual POC Total CO2 Base Excess O2 Saturation O2 % ABG pCO2 ABG pO2 [place] Test Respiration Rate O2 Delivery Device EPAP IPAP Blood Gas Notified Whom Blood Gas Notified Time Sodium Potassium Chloride Carbon Dioxide Anion Gap BUN Creatinine Estim Creat Clear Calc Est GFR (MDRD) Af Amer Est GFR (MDRD) Non-Af BUN/Creatinine Ratio Glucose Lactic Acid 2.0 Calcium B-Natriuretic Peptide Urine Color Urine Clarity Urine pH Ur Specific [place] Urine Protein Urine Glucose (UA) Urine Ketones Urine Occult Blood Urine Nitrite Urine Bilirubin Urine Urobilinogen Ur Leukocyte Esterase Urine RBC Urine WBC Ur Squamous Epith Cells Urine Bacteria Urine Mucus POC Glucose 07/20/18 07/20/18 07/20/18 21:44 16:51 12:11 POC Glucose 402 H 155 H 162 H 07/20/18 07/20/18 10:07 07:06 POC Glucose 150 H 179 H Medical Necessity - Tobacco Use Smoking Status: Never smoker Assessment/Plan All Active Problems Right foot soft tissue cellulitis (Acute) Diabetic ulcer of right foot with fat layer exposed (Acute) Type 2 diabetes mellitus with diabetic polyneuropathy (Acute) Delayed wound healing (Acute) Cellulitis of right foot (Acute) Severe sepsis (Acute) Acute respiratory failure with hypoxia (Acute) 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 Reviewed MRI images and bone marrow edema noted to the residual met bases and cuneiforms consistent with osteomyelitis especially is setting of exposed bone and ulceration present at this site. Formal radiology report pending. Patient appears very nonadherent/noncompliant - patient's daughter relates he walks all over foot - does not stay off of this - states she has to hound him to stay off of it. His diabetes is also uncontrolled. He ultimately will likely need a BKA for definite treatment of his foot, as salvaging foot will be very difficult due to patient nonadherence/noncompliance; this was discussed with patient and his daughter in great detail. Patient refusing further amputation at this time, relates he wants to try antibiotics. Again the risks of nonadherence/noncompliance were reviewed with patient. There are no current plans for surgery on right foot as again patient refusing at this time. No emergent surgery needed at this time on foot. Continue with local wound care - Aquacel Ag with overlying gauze, kerlix dressing - change daily. Absolute no weightbearing right foot. Podiatry will follow while patient remains an inpatient, otherwise patient expresses he would like to follow up at [facility]
[2018-07-21] VITALS (22 sets, daily range): BP systolic 110–159; BP diastolic 58–87; PULSE 87–100; RESP 12–27; TEMP 36.2–37.5; O2SAT 90–100
[2018-07-21] MEDS: oxyCODONE 5 MG Tablet PO ×3 (03:39→21:54)
[2018-07-21] MEDS: 0.9% Normal Saline 1,000 ML 75 ML IV (03:42)
[2018-07-21 04:40] LABS: Absolute Lymphocyte Count 0.97 X10^3/ul (0.83-4.51); Basophil# 0.02 X10^3/uL; Basophil% 0.1 % (0-1); Hematocrit 33.8 % (40-54); Hemoglobin 11.1 g/dl (13.0-16.5); Lymphocyte # 0.97 X10^3/ul (4.0); Lymphocyte % 5.3 % (19-41); Mean Corp Hgb Conc 32.8 g/gl (32-36); Mean Corpuscular Hgb 28.5 pg (27.0-32.0); Mean Corpuscular Volume 86.7 fL (80-94); Mean Platelet Vol. 9.7 fl (6.2-12.0); Monocyte# 1.06 X10^3/uL; Monocyte% 5.8 % (0-10); Neutrophil # 16.04 X10^3/uL (2.7-7.7); Neutrophil % 88.5 % (47-70); Platelet Count 271 K/mm3 (150-450); RBC Distribution Width CV 14.6 % (11.6-14.6); RBC Distribution Width SD 46.6 fl (35.1-43.9); White Blood Count 18.1 K/mm3 (4.4-11.0)
[2018-07-21 04:45] LABS: POSITIVE COUNT NO; POSITIVE DIFFERENTIAL NO; POSITIVE MORPHOLOGY NO
[2018-07-21 04:50] LABS: Anion Gap 13 (5-15); BUN 20 mg/dL (7-18); BUN/Creat Ratio 17.9 RATIO (10-20); Calcium,Total 7.7 mg/dL (8.5-10.1); Chloride 102 mmol/L (98-107); Creatinine, Serum 1.12 mg/dL (0.70-1.30); EST Glomerular Filtration Rate 69 mL/min (>60); Est Glom Filt Rate - Afr Amer 83 mL/min (>60); Estimated Creatinine Clearance 60.49 ml/min; Glucose 386 mg/dL (74-106); Sodium Level 134 mmol/L (136-145)
[2018-07-21 06:11] LABS: Bedside Glucose 361 mg/dL (70-110)
[2018-07-21] MEDS: Insulin Lispro 100 UNIT/ML INSULN.PEN 18 UNIT SC (06:33)
--- NOTE | 2018-07-21 07:11 | PN_ITS ---
Subjective: Patient did well overnight. Patient is still requiring 4 L nasal cannula to maintain saturations during the day, but has been able to take longer BiPAP breaks. Patient's blood sugars are elevated today, but basal insulin was held secondary to decreased p.o. status yesterday. This has been reinitiated. Patient denies any subjective change in lower extremity, but feels his breathing issues are much improved. Objective: No DVT noted. MRI completed, but formal results are still pending. General: Alert, Oriented x3, Cooperative, No apparent distress, - - No conversational dyspnea. HEENT: Atraumatic, PERRLA, EOMI, Normocephalic, - - No scleral icterus or injection noted. Oral: Moist Mucosa, No Gingival or Mucosal Lesions/ Ulcerations Neck: Supple, No JVD, No Nodes, Trachea Midline Lungs: No wheeze, Diminished, Rhonchi - Bilateral bases, - - Symmetric expansion. No dullness to percussion. Cardiovascular: Regular rate, Regular Rhythm, Normal S1, Normal S2, No murmurs, No rub noted, No Gallop Abdomen: Bowel Sounds Present, Soft, Non Tender, Non-Distended Extremities: No cyanosis, Capillary Refill Less than 3 Seconds, Clubbing, Edema Skin: - - No significant change compared to previous. Lower extremity is bandaged Musculoskeletal: No Tenderness to Palpation of Joints or Extremities Lymphatic: No Cervical, Supraclavicular, or Inguinal Adenopathy Neurological: Cranial nerves II-XII grossly intact, Neuro grossly intact, Motor Exam 5/5 strength throughout Psych/Mental Status: Alert and oriented to time, place, person, mood and affect Vital Signs Temp Pulse Resp BP Pulse Ox 37.0 C 92 23 H 159/81 H 90 07/21/18 06:00 07/21/18 06:00 07/21/18 06:00 07/21/18 06:00 07/21/18 06:00 Oxygen Flow Rate (L/min) 4 Oxygen Delivery Method Nasal Cannula Weight: 89.5 kg Body Mass Index (BMI) 27.3 Finger Stick Blood Glucose 285 Intake and Output for Last 24 Hours 07/19/18 07/20/18 07/21/18 23:59 23:59 23:59 Intake Total 4723.2 / 4723.2 638 / 638 Output Total 400 / 400 Balance 4323.2 / 4323.2 638 / 638 Labs (Last 48 Hours) 07/19/18 07/19/18 07/19/18 13:20 13:40 13:40 WBC 21.9 H RBC 4.10 L Hgb 12.1 L Hct 35.5 L MCV 86.6 MCH 29.5 MCHC 34.1 RDW 13.6 RDW Differential 41.9 Plt Count 302 MPV 9.9 Immature Gran % (Auto) 0.200 Neut % (Auto) 93.9 H Lymph % (Auto) 2.8 L Smith % (Auto) 2.9 Eos % (Auto) 0.0 Baso % (Auto) 0.2 Absolute Neuts (auto) 20.6 H Absolute Lymphs (auto) 0.61 L Total Counted Not Reportable ESR 45 H Specimen Type Sample Site pH Bicarbonate Actual POC Total CO2 Base Excess O2 Saturation O2 % ABG pCO2 ABG pO2 Ladarius Test Respiration Rate O2 Delivery Device EPAP IPAP Blood Gas Notified Whom Blood Gas Notified Time Sodium 127 L Potassium 3.8 Chloride 95 L Carbon Dioxide 21.0 Anion Gap 11 BUN 22 H Creatinine 1.54 H Estim Creat Clear Calc 44.00 Est GFR (MDRD) Af Amer 58 L Est GFR (MDRD) Non-Af 48 L BUN/Creatinine Ratio 14.3 Glucose 311 H Hemoglobin A1c Lactic Acid Calcium 8.2 L Total Bilirubin 0.70 AST 78 H ALT 17 Alkaline Phosphatase 44 L C-React Prot Ext Range 177.00 H B-Natriuretic Peptide Total Protein 7.6 Albumin 2.8 L Globulin 4.8 H Albumin/Globulin Ratio 0.6 L Urine Color Urine Clarity Urine pH Ur Specific [place] Urine Protein Urine Glucose (UA) Urine Ketones Urine Occult Blood Urine Nitrite Urine Bilirubin Urine Urobilinogen Ur Leukocyte Esterase Urine RBC Urine WBC Ur Squamous Epith Cells Urine Bacteria Urine Mucus S.aureus Protein A PCR MRSA (PCR) POC Glucose 285 H 07/19/18 07/19/18 07/19/18 13:40 16:05 17:28 WBC RBC Hgb Hct MCV MCH MCHC RDW RDW Differential Plt Count MPV Immature Gran % (Auto) Neut % (Auto) Lymph % (Auto) Smith % (Auto) Eos % (Auto) Baso % (Auto) Absolute Neuts (auto) Absolute Lymphs (auto) Total Counted ESR Specimen Type Sample Site pH Bicarbonate Actual POC Total CO2 Base Excess O2 Saturation O2 % ABG pCO2 ABG pO2 Ladarius Test Respiration Rate O2 Delivery Device EPAP IPAP Blood Gas Notified Whom Blood Gas Notified Time Sodium Potassium Chloride Carbon Dioxide Anion Gap BUN Creatinine Estim Creat Clear Calc Est GFR (MDRD) Af Amer Est GFR (MDRD) Non-Af BUN/Creatinine Ratio Glucose Hemoglobin A1c 9.9 H Lactic Acid 1.7 Calcium Total Bilirubin AST ALT Alkaline Phosphatase C-React Prot Ext Range B-Natriuretic Peptide Total Protein Albumin Globulin Albumin/Globulin Ratio Urine Color Urine Clarity Urine pH Ur Specific [place] Urine Protein Urine Glucose (UA) Urine Ketones Urine Occult Blood Urine Nitrite Urine Bilirubin Urine Urobilinogen Ur Leukocyte Esterase Urine RBC Urine WBC Ur Squamous Epith Cells Urine Bacteria Urine Mucus S.aureus Protein A PCR MRSA (PCR) POC Glucose 232 H 07/19/18 07/19/18 07/20/18 18:45 20:48 03:05 WBC RBC Hgb Hct MCV MCH MCHC RDW RDW Differential Plt Count MPV Immature Gran % (Auto) Neut % (Auto) Lymph % (Auto) Smith % (Auto) Eos % (Auto) Baso % (Auto) Absolute Neuts (auto) Absolute Lymphs (auto) Total Counted ESR Specimen Type Sample Site pH Bicarbonate Actual POC Total CO2 Base Excess O2 Saturation O2 % ABG pCO2 ABG pO2 Lad[place] Test Respiration Rate O2 Delivery Device EPAP IPAP Blood Gas Notified Whom Blood Gas Notified Time Sodium Potassium Chloride Carbon Dioxide Anion Gap BUN Creatinine Estim Creat Clear Calc Est GFR (MDRD) Af Amer Est GFR (MDRD) Non-Af BUN/Creatinine Ratio Glucose Hemoglobin A1c Lactic Acid Calcium Total Bilirubin AST ALT Alkaline Phosphatase C-React Prot Ext Range B-Natriuretic Peptide Total Protein Albumin Globulin Albumin/Globulin Ratio Urine Color Yellow Urine Clarity Sl. Cloudy Urine pH 5.0 Ur Specific [place] 1.020 Urine Protein 100 H Urine Glucose (UA) 1000 H Urine Ketones 15 H Urine Occult Blood 250 H Urine Nitrite Negative Urine Bilirubin Negative Urine Urobilinogen 1 H Ur Leukocyte Esterase 25 H Urine RBC 5-10 SEEN Urine WBC 0-5 SEEN Ur Squamous Epith Cells 0-5 SEEN Urine Bacteria 1+ Urine Mucus 1+ S.aureus Protein A PCR POSITIVE H MRSA (PCR) Negative POC Glucose 134 H 07/20/18 07/20/18 07/20/18 05:22 05:45 05:45 WBC 22.1 H RBC 4.29 L Hgb 12.3 L Hct 37.6 L MCV 87.6 MCH 28.7 MCHC 32.7 RDW 14.0 RDW Differential 44.0 H Plt Count 323 MPV 9.9 Immature Gran % (Auto) 0.400 Neut % (Auto) 91.4 H Lymph % (Auto) 3.5 L Smith % (Auto) 4.6 Eos % (Auto) 0.0 Baso % (Auto) 0.1 Absolute Neuts (auto) 20.2 H Absolute Lymphs (auto) 0.78 L Total Counted Not Reportable ESR Specimen Type ART Sample Site L Radial pH 7.28 L Bicarbonate Actual 15.1 L POC Total CO2 16 Base Excess -12 L O2 Saturation 97 O2 % 70 ABG pCO2 32.1 L ABG pO2 106 H Ladarius Test POS Respiration Rate 12 O2 Delivery Device Bi / C PAP EPAP 8 IPAP 16 Blood Gas Notified Whom [facility] Blood Gas Notified Time 515 Sodium 129 L Potassium 3.9 Chloride 101 Carbon Dioxide 18.0 L Anion Gap 10 BUN 21 H Creatinine 1.16 Estim Creat Clear Calc 58.41 Est GFR (MDRD) Af Amer 80 Est GFR (MDRD) Non-Af 66 BUN/Creatinine Ratio 18.1 Glucose 164 H Hemoglobin A1c Lactic Acid Calcium 7.7 L Total Bilirubin AST ALT Alkaline Phosphatase C-React Prot Ext Range B-Natriuretic Peptide Total Protein Albumin Globulin Albumin/Globulin Ratio Urine Color Urine Clarity Urine pH Ur Specific [place] Urine Protein Urine Glucose (UA) Urine Ketones Urine Occult Blood Urine Nitrite Urine Bilirubin Urine Urobilinogen Ur Leukocyte Esterase Urine RBC Urine WBC Ur Squamous Epith Cells Urine Bacteria Urine Mucus S.aureus Protein A PCR MRSA (PCR) POC Glucose 07/20/18 07/20/18 07/20/18 05:45 05:45 07:06 WBC RBC Hgb Hct MCV MCH MCHC RDW RDW Differential Plt Count MPV Immature Gran % (Auto) Neut % (Auto) Lymph % (Auto) Smith % (Auto) Eos % (Auto) Baso % (Auto) Absolute Neuts (auto) Absolute Lymphs (auto) Total Counted ESR Specimen Type Sample Site pH Bicarbonate Actual POC Total CO2 Base Excess O2 Saturation O2 % ABG pCO2 ABG pO2 Ladarius Test Respiration Rate O2 Delivery Device EPAP IPAP Blood Gas Notified Whom Blood Gas Notified Time Sodium Potassium Chloride Carbon Dioxide Anion Gap BUN Creatinine Estim Creat Clear Calc Est GFR (MDRD) Af Amer Est GFR (MDRD) Non-Af BUN/Creatinine Ratio Glucose Hemoglobin A1c Lactic Acid 2.2 H Calcium Total Bilirubin AST ALT Alkaline Phosphatase C-React Prot Ext Range B-Natriuretic Peptide 1158.3 H Total Protein Albumin Globulin Albumin/Globulin Ratio Urine Color Urine Clarity Urine pH Ur Specific [place] Urine Protein Urine Glucose (UA) Urine Ketones Urine Occult Blood Urine Nitrite Urine Bilirubin Urine Urobilinogen Ur Leukocyte Esterase Urine RBC Urine WBC Ur Squamous Epith Cells Urine Bacteria Urine Mucus S.aureus Protein A PCR MRSA (PCR) POC Glucose 179 H 07/20/18 07/20/18 07/20/18 10:07 10:50 12:11 WBC RBC Hgb Hct MCV MCH MCHC RDW RDW Differential Plt Count MPV Immature Gran % (Auto) Neut % (Auto) Lymph % (Auto) Smith % (Auto) Eos % (Auto) Baso % (Auto) Absolute Neuts (auto) Absolute Lymphs (auto) Total Counted ESR Specimen Type Sample Site pH Bicarbonate Actual POC Total CO2 Base Excess O2 Saturation O2 % ABG pCO2 ABG pO2 Lad[place] Test Respiration Rate O2 Delivery Device EPAP IPAP Blood Gas Notified Whom Blood Gas Notified Time Sodium Potassium Chloride Carbon Dioxide Anion Gap BUN Creatinine Estim Creat Clear Calc Est GFR (MDRD) Af Amer Est GFR (MDRD) Non-Af BUN/Creatinine Ratio Glucose Hemoglobin A1c Lactic Acid 2.0 Calcium Total Bilirubin AST ALT Alkaline Phosphatase C-React Prot Ext Range B-Natriuretic Peptide Total Protein Albumin Globulin Albumin/Globulin Ratio Urine Color Urine Clarity Urine pH Ur Specific [place] Urine Protein Urine Glucose (UA) Urine Ketones Urine Occult Blood Urine Nitrite Urine Bilirubin Urine Urobilinogen Ur Leukocyte Esterase Urine RBC Urine WBC Ur Squamous Epith Cells Urine Bacteria Urine Mucus S.aureus Protein A PCR MRSA (PCR) POC Glucose 150 H 162 H 07/20/18 07/20/18 07/21/18 16:51 21:44 04:17 WBC 18.1 H RBC 3.90 L Hgb 11.1 L Hct 33.8 L MCV 86.7 MCH 28.5 MCHC 32.8 RDW 14.6 RDW Differential 46.6 H Plt Count 271 MPV 9.7 Immature Gran % (Auto) 0.300 Neut % (Auto) 88.5 H Lymph % (Auto) 5.3 L Smith % (Auto) 5.8 Eos % (Auto) 0.0 Baso % (Auto) 0.1 Absolute Neuts (auto) 16.0 H Absolute Lymphs (auto) 0.97 Total Counted Not Reportable ESR Specimen Type Sample Site pH Bicarbonate Actual POC Total CO2 Base Excess O2 Saturation O2 % ABG pCO2 ABG pO2 Ladarius Test Respiration Rate O2 Delivery Device EPAP IPAP Blood Gas Notified Whom Blood Gas Notified Time Sodium Potassium Chloride Carbon Dioxide Anion Gap BUN Creatinine Estim Creat Clear Calc Est GFR (MDRD) Af Amer Est GFR (MDRD) Non-Af BUN/Creatinine Ratio Glucose Hemoglobin A1c Lactic Acid Calcium Total Bilirubin AST ALT Alkaline Phosphatase C-React Prot Ext Range B-Natriuretic Peptide Total Protein Albumin Globulin Albumin/Globulin Ratio Urine Color Urine Clarity Urine pH Ur Specific [place] Urine Protein Urine Glucose (UA) Urine Ketones Urine Occult Blood Urine Nitrite Urine Bilirubin Urine Urobilinogen Ur Leukocyte Esterase Urine RBC Urine WBC Ur Squamous Epith Cells Urine Bacteria Urine Mucus S.aureus Protein A PCR MRSA (PCR) POC Glucose 155 H 402 H 07/21/18 07/21/18 04:17 06:02 WBC RBC Hgb Hct MCV MCH MCHC RDW RDW Differential Plt Count MPV Immature Gran % (Auto) Neut % (Auto) Lymph % (Auto) Smith % (Auto) Eos % (Auto) Baso % (Auto) Absolute Neuts (auto) Absolute Lymphs (auto) Total Counted ESR Specimen Type Sample Site pH Bicarbonate Actual POC Total CO2 Base Excess O2 Saturation O2 % ABG pCO2 ABG pO2 Ladarius Test Respiration Rate O2 Delivery Device EPAP IPAP Blood Gas Notified Whom Blood Gas Notified Time Sodium 134 L Potassium 4.0 Chloride 102 Carbon Dioxide 19.0 L Anion Gap 13 BUN 20 H Creatinine 1.12 Estim Creat Clear Calc 60.49 Est GFR (MDRD) Af Amer 83 Est GFR (MDRD) Non-Af 69 BUN/Creatinine Ratio 17.9 Glucose 386 H Hemoglobin A1c Lactic Acid Calcium 7.7 L Total Bilirubin AST ALT Alkaline Phosphatase C-React Prot Ext Range B-Natriuretic Peptide Total Protein Albumin Globulin Albumin/Globulin Ratio Urine Color Urine Clarity Urine pH Ur Specific [place] Urine Protein Urine Glucose (UA) Urine Ketones Urine Occult Blood Urine Nitrite Urine Bilirubin Urine Urobilinogen Ur Leukocyte Esterase Urine RBC Urine WBC Ur Squamous Epith Cells Urine Bacteria Urine Mucus S.aureus Protein A PCR MRSA (PCR) POC Glucose 361 H Microbiology 07/20/18 07:30 Mucosa - Nasopharyngeal Respiratory Panel (PCR) - Final 07/19/18 18:45 Wound - Right Foot Gram Stain - Final 07/19/18 18:45 Wound - Right Foot Wound Culture - Preliminary Streptococcus group A 07/19/18 13:40 Blood Culture (Wb) - Venous Bacteria Detection (PCR) - Preliminary Streptococcus pyogenes 07/19/18 13:40 Blood Culture (Wb) - Venous Blood Culture - Preliminary Medical Necessity - Tobacco Use Smoking Status: Never smoker Assessment/Plan All Active Problems Right foot soft tissue cellulitis (Acute) Diabetic ulcer of right foot with fat layer exposed (Acute) Type 2 diabetes mellitus with diabetic polyneuropathy (Acute) Delayed wound healing (Acute) Cellulitis of right foot (Acute) Severe sepsis (Acute) Acute respiratory failure with hypoxia (Acute) RECOMMENDATIONS: 1. Antibiotic and surgical intervention per ID and podiatry 2. BiPAP rescue as necessary 3. Wean oxygen as tolerated 4. Likely okay to leave the intensive care unit from my perspective 5. [facility] IMPRESSIONS: 1. Acute hypoxic respiratory failure secondary to metabolic acidosis and respiratory muscle fatigue Patient did require BiPAP rescue yesterday, but metabolic acidosis appears to be improving with appropriate antibiotics. Patient does have a PICC line at this time, but is tolerating 4 L nasal cannula without difficulty. Venous Doppler studies were negative. MRI of the foot has been completed per nursing. 2. Severe sepsis secondary to right foot cellulitis Infectious disease and podiatry have been consulted. Patient currently has strep pyogenes noted out of blood cultures, which fits with current clinical situation. Cannot exclude deterioration over the next 24 hours. No pressors have been required. Acidosis appears to be significantly improved. Patient reportedly has been recommended further amputation, but patient is refusing at this time. 3. Diabetes mellitus type 2 Patient significant elevation in blood sugars, likely secondary to #2. Patient is tolerating a p.o. diet at this time. Basal insulin will be reinitiated. Patient will be given additional insulin this morning to address blood sugar of 386. 4. Hyponatremia/hypochloremia/acute back pain/chronic wound/hypertension/TRICIA Complicates care, management, recovery and prognosis. Patient appears to have hypovolemic hyponatremia and hypochloremia. Patient is on aggressive volume resuscitation. Renal function appears to be improving. We will continue to monitor closely. Code Visit Inpatient E&M: 99038 Subs Hosp L3
--- NOTE | 2018-07-21 07:37 | PCM.PN.HOSP ---
Patient Problems: Active and Suspected Problems Right foot soft tissue cellulitis (Acute) Diabetic ulcer of right foot with fat layer exposed (Acute) Type 2 diabetes mellitus with diabetic polyneuropathy (Acute) Delayed wound healing (Acute) Cellulitis of right foot (Acute) Severe sepsis (Acute) Acute respiratory failure with hypoxia (Acute) Subjective: Patient was seen and examined. He has improved in the ICU. He is now on 4 L of oxygen. Off BiPAP. He denied any new complaints. Denied chest pain or dizziness or progressive shortness of breath. Still waiting for the [place] to get back to us for transfer to their service Objective: Physical exam: General: Alert, Oriented x3, Cooperative, appears comfortable, on 4L oxygen HEENT: Atraumatic, PERRLA, EOMI, Normocephalic Oral: Moist Mucosa Neck: Supple Lungs: Diminished Cardiovascular: Regular rate, Regular Rhythm, Normal S1, Normal S2, No murmurs Abdomen: Bowel Sounds Present, Soft, Non Tender, Non-Distended, No Hepato-splenomegaly Extremities: Edema - Bilateral pedal edema +1, right foot dressing over his TMA Skin: No rashes, No breakdown Musculoskeletal: No Tenderness to Palpation of Joints or Extremities Lymphatic: No Cervical, Supraclavicular, or Inguinal Adenopathy Neurological: Cranial nerves II-XII grossly intact, Neuro grossly intact Psych/Mental Status: Normal Affect, Appropriate Vitals/I&O's: Vital Signs Temp Pulse Resp BP Pulse Ox 98.6 F 89 18 130/78 H 91 07/21/18 06:00 07/21/18 07:19 07/21/18 07:00 07/21/18 07:00 07/21/18 07:00 Oxygen Flow Rate (L/min) 4 Oxygen Delivery Method Nasal Cannula Weight: 89.5 kg Body Mass Index (BMI) 27.3 Finger Stick Blood Glucose 285 Intake and Output for Last 24 Hours 07/19/18 07/20/18 07/21/18 23:59 23:59 23:59 Intake Total 4723.2 / 4723.2 638 / 638 Output Total 400 / 400 Balance 4323.2 / 4323.2 638 / 638 Microbiology Past 72 Hours 07/20/18 07:30 Mucosa - Nasopharyngeal Respiratory Panel (PCR) - Final 07/19/18 18:45 Wound - Right Foot Gram Stain - Final 07/19/18 18:45 Wound - Right Foot Wound Culture - Preliminary Streptococcus group A 07/19/18 13:40 Blood Culture (Wb) - Venous Bacteria Detection (PCR) - Preliminary Streptococcus pyogenes 07/19/18 13:40 Blood Culture (Wb) - Venous Blood Culture - Preliminary Laboratory Results 07/20/18 05:45: B-Natriuretic Peptide 1158.3 H 07/20/18 10:07: POC Glucose 150 H 07/20/18 10:50: Lactic Acid 2.0 07/20/18 12:11: POC Glucose 162 H 07/20/18 16:51: POC Glucose 155 H 07/20/18 21:44: POC Glucose 402 H 07/21/18 04:17: WBC 18.1 H, RBC 3.90 L, Hgb 11.1 L, Hct 33.8 L, MCV 86.7, MCH 28.5, MCHC 32.8, RDW 14.6, RDW Differential 46.6 H, Plt Count 271, MPV 9.7, Immature Gran % (Auto) 0.300, Neut % (Auto) 88.5 H, Lymph % (Auto) 5.3 L, Travis % (Auto) 5.8, Eos % (Auto) 0.0, Baso % (Auto) 0.1, Absolute Neuts (auto) 16.0 H, Absolute Lymphs (auto) 0.97, Total Counted Not Reportable 07/21/18 04:17: Sodium 134 L, Potassium 4.0, Chloride 102, Carbon Dioxide 19.0 L, Anion Gap 13, BUN 20 H, Creatinine 1.12, Estim Creat Clear Calc 60.49, Est GFR (MDRD) Af Amer 83, Est GFR (MDRD) Non-Af 69, BUN/Creatinine Ratio 17.9, Glucose 386 H, Calcium 7.7 L 07/21/18 06:02: POC Glucose 361 H Current Medications Al Hydroxide/Mg Hydroxide (Mylanta Ii) 30 ml PO Q6H PRN PRN PRN Reason: Gastric Burning Albuterol Sulfate (Ventolin Aerosols) 2.5 mg INHALATION Q2H PRN PRN PRN Reason: dyspnea, wheezing Artificial Tears (Tears Naturale, Artificial Tears) 1 drop LEFT EYE 4X/DAY [facility] Last Admin: 07/20/18 21:16 Dose: Not Given Bisacodyl (Dulcolax) 10 mg RECTAL DAILY PRN PRN PRN Reason: Constipation Dextrose (D50w Syringe) 0 gm IV X1 PRN; Protocol PRN Reason: Hypoglycemia Docusate Sodium (Colace) 200 mg PO BID PRN PRN PRN Reason: Constipation Enoxaparin Sodium (Lovenox) 40 mg SC DAILY [facility] Last Admin: 07/20/18 11:12 Dose: 40 mg Furosemide (Lasix) 40 mg IV X1 ONE Stop: 07/21/18 07:36 Glucagon () 1 mg IM .X1 PRN PRN Reason: Hypoglycemia Piperacillin Sod/Tazobactam (Sod 3.375 gm/ Sodium Chloride) 50 mls @ 12.5 mls/hr IV Q8 [facility] Last Admin: 07/21/18 06:04 Dose: 12.5 mls/hr Vancomycin IV Pharmacy to Dose (1 ea/ Sodium Chloride) 500 mls @ 250 mls/hr IV DAILY [facility]; Protocol Last Admin: 07/20/18 11:09 Dose: Not Given Vancomycin HCl 1,250 mg/ (Sodium Chloride) 275 mls @ 167 mls/hr IV Q24H [facility] Last Admin: 07/20/18 16:56 Dose: 167 mls/hr Famotidine 20 mg/ Sodium (Chloride) 10 mls @ 300 mls/hr IV Q12 [facility] Last Admin: 07/20/18 21:12 Dose: 300 mls/hr Insulin Human Lispro (Humalog Kwikpen (Bkc)) 0 unit SQ ACHS [facility]; Protocol Last Admin: 07/21/18 06:26 Dose: Not Given Insulin Human Lispro (Humalog Kwikpen (Bkc)) 10 unit SC TIDCM [facility] Last Admin: 07/20/18 16:53 Dose: Not Given Insulin Human NPH (Humulin N (Bkc)) 25 units SC BIDCM [facility] Last Admin: 07/20/18 17:23 Dose: Not Given Morphine Sulfate () 1 mg IV Q4H PRN PRN PRN Reason: SEVERE PAIN (6-10/10) Nutritional Formula (Lactose Free) (Glucerna Shake) 120 ml PO TIDCM [facility] Last Admin: 07/20/18 16:43 Dose: Not Given Ondansetron HCl (Zofran) 4 mg IV Q8H PRN PRN PRN Reason: Nausea Oxycodone HCl (Oxyir) 5 mg PO Q4H PRN PRN PRN Reason: SEVERE PAIN (6-10/10) Last Admin: 07/21/18 03:39 Dose: 5 mg Polyethylene Glycol (Miralax) 17 gm PO DAILY [facility] Last Admin: 07/20/18 11:08 Dose: Not Given Sodium Chloride () 5 - 15 ml IV UD PRN PRN Reason: SALINE FLUSH Last Admin: 07/20/18 21:12 Dose: 10 ml Medical Necessity - Tobacco Use Smoking Status: Never smoker Assessment/Plan All Active Problems Right foot soft tissue cellulitis (Acute) Diabetic ulcer of right foot with fat layer exposed (Acute) Type 2 diabetes mellitus with diabetic polyneuropathy (Acute) Delayed wound healing (Acute) Cellulitis of right foot (Acute) Severe sepsis (Acute) Acute respiratory failure with hypoxia (Acute) 73-year-old male with past medical history of type II DM, poorly controlled, history of recent TMA to the right foods, who comes in with complaints of fever chills with right foot pain and swelling as well as nonhealing ulcer. 1. 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 Wound cultures growing streptococcus group A, MRI of the foot confirmed osteomyelitis Leucocytosis is slightly improved from 18.21 to 22.1. Continue on IV vancomycin and Zosyn. ID consulted. 2. Streptococcus pyogenes bacteremia, ID consulted, will leave recommendations for possible 2D echo or otherwise to ID, on IV Unasyn now 3. Acute hypoxic respiratory failure secondary to community-acquired pneumonia versus aspiration pneumonia, resolving, on 4L oxygen today, continue on Bipap QHS and prn, encourage use of incentive spirometer 4. Community acquired pneumonia versus aspiration pneumonia, on unasyn 5. Type II DM, poorly controlled, HbA1c is 9.9, blood sugars are fairly controlled, On NPH, pre-meal insulin and insulin sliding scale 6. VERÓNICA likely secondary to dehydration, resolving, will continue to trend BMP 7. Hypertension, controlled, not on meds, will continue to monitor 8. TRICIA on CPAP at home; on Bipap here 9. DVT Ppx- Lovenox SC 10. GI prophylaxis - on Famotidine IV BID 11. Disposition: Waiting for transfer to [place] as patient prefers to have his care and further surgeries day. Code Visit Inpatient E&M: 17150 Subs Hosp L2
[2018-07-21] MEDS: Insulin NPH Human 100 UNITS/ML PEN 25 UNITS SC ×2 (08:22→16:59)
[2018-07-21] MEDS: Insulin Lispro 100 UNIT/ML INSULN.PEN 10 UNIT SC ×3 (08:22→16:59)
[2018-07-21] MEDS: Furosemide 40 MG/4 ML Vial IV (08:25)
[2018-07-21] MEDS: 0.9% NaCl Peripheral Flush Adult/Peds IV ×2 (08:25→21:45)
[2018-07-21] MEDS: Enoxaparin 40 MG/0.4 ML Syringe SC (09:51)
[2018-07-21] MEDS: glipiZIDE XL 5 MG Tablet PO ×2 (09:51→16:58)
[2018-07-21] MEDS: Famotidine 20 MG Tablet PO ×2 (09:51→21:45)
--- NOTE | 2018-07-21 09:57 | PCM.PN.ID ---
Patient Problems: Active and Suspected Problems Right foot soft tissue cellulitis (Acute) Diabetic ulcer of right foot with fat layer exposed (Acute) Type 2 diabetes mellitus with diabetic polyneuropathy (Acute) Delayed wound healing (Acute) Cellulitis of right foot (Acute) Severe sepsis (Acute) Acute respiratory failure with hypoxia (Acute) Subjective: Breathing better, no fever, foot sore. - Physical Exam General: Alert, Cooperative, No apparent distress Lungs: Diminished Cardiovascular: Tachycardic Abdomen: Soft, Non Tender, Non-Distended Extremities: Edema Skin: Ulcer/ Wound - bandaged Vital Signs Temp Pulse Resp BP Pulse Ox 97.8 F 100 16 143/84 H 96 07/21/18 08:26 07/21/18 09:00 07/21/18 09:00 07/21/18 09:00 07/21/18 09:00 Oxygen Flow Rate (L/min) 4 Oxygen Delivery Method Nasal Cannula Weight: 89.5 kg Body Mass Index (BMI) 27.3 Finger Stick Blood Glucose 285 Intake and Output for Last 24 Hours 07/19/18 07/20/18 07/21/18 23:59 23:59 23:59 Intake Total 4723.2 / 4723.2 638 / 638 Output Total 400 / 400 500 / 500 Balance 4323.2 / 4323.2 138 / 138 Microbiology Past 72 Hours 07/20/18 03:05 Urine Culture - Preliminary Urine, Clean Catch Culture exhibits no growth. 07/19/18 18:45 Gram Stain - Final Wound - Right Foot Wound Culture - Preliminary Streptococcus group A Staphylococcus aureus 07/19/18 14:50 Blood Culture - Preliminary Blood Culture (Wb) - Anticubital Right No growth in 48 hours. 07/19/18 13:40 Bacteria Detection (PCR) - Final Blood Culture (Wb) - Venous Streptococcus pyogenes Blood Culture - Preliminary Streptococcus pyogenes 07/20/18 07:30 Respiratory Panel (PCR) - Final Mucosa - Nasopharyngeal Laboratory Tests Past 24 Hrs 07/20/18 07/20/18 07/21/18 05:45 10:50 04:17 WBC 18.1 H RBC 3.90 L Hgb 11.1 L Hct 33.8 L MCV 86.7 MCH 28.5 MCHC 32.8 RDW 14.6 RDW Differential 46.6 H Plt Count 271 MPV 9.7 Immature Gran % (Auto) 0.300 Neut % (Auto) 88.5 H Lymph % (Auto) 5.3 L Winkler % (Auto) 5.8 Eos % (Auto) 0.0 Baso % (Auto) 0.1 Absolute Neuts (auto) 16.0 H Absolute Lymphs (auto) 0.97 Total Counted Not Reportable Sodium Potassium Chloride Carbon Dioxide Anion Gap BUN Creatinine Estim Creat Clear Calc Est GFR (MDRD) Af Amer Est GFR (MDRD) Non-Af BUN/Creatinine Ratio Glucose Lactic Acid 2.0 Calcium B-Natriuretic Peptide 1158.3 H 07/21/18 04:17 WBC RBC Hgb Hct MCV MCH MCHC RDW RDW Differential Plt Count MPV Immature Gran % (Auto) Neut % (Auto) Lymph % (Auto) Winkler % (Auto) Eos % (Auto) Baso % (Auto) Absolute Neuts (auto) Absolute Lymphs (auto) Total Counted Sodium 134 L Potassium 4.0 Chloride 102 Carbon Dioxide 19.0 L Anion Gap 13 BUN 20 H Creatinine 1.12 Estim Creat Clear Calc 60.49 Est GFR (MDRD) Af Amer 83 Est GFR (MDRD) Non-Af 69 BUN/Creatinine Ratio 17.9 Glucose 386 H Lactic Acid Calcium 7.7 L B-Natriuretic Peptide POC Glucose 07/21/18 07/20/18 07/20/18 06:02 21:44 16:51 POC Glucose 361 H 402 H 155 H 07/20/18 07/20/18 12:11 10:07 POC Glucose 162 H 150 H Medical Necessity - Tobacco Use Smoking Status: Never smoker Route of nutrition/ use of supplements: [] Nutritional Intake: [] IV Site: [] Toscano Catheter: [] - Assessment/Plan Antibiotics: [] Assessment/Plan: [] Active and Suspected Problems Right foot soft tissue cellulitis (Acute) Diabetic ulcer of right foot with fat layer exposed (Acute) Type 2 diabetes mellitus with diabetic polyneuropathy (Acute) Delayed wound healing (Acute) Cellulitis of right foot (Acute) Severe sepsis (Acute) Acute respiratory failure with hypoxia (Acute) Severe sepsis with GAS bacteremia from R foot infection with suspected osteo - Per notes, wound probes to bone and MRI consistent with diffuse osteo. MSSA pcr also (+). Course complicated by acute respiratory failure and VERÓNICA. Narrow vanc/zosyn to unasyn. Will follow
--- NOTE | 2018-07-21 10:09 | CASEMGMT ---
RN CM Note: [facility] Pt is in queue to be assigned a transfer patient case manager but this has not been assigned yet. RN CM let transfer line rep know pt is in ICU and urgent transfer is recommended by physicians for care. Per rep, they will contact RN CM or unit once assigned. Carissa CHAIDEZ RN ACM
[2018-07-21] MEDS: Insulin Lispro 100 UNIT/ML INSULN.PEN SQ ×2 (11:15→17:00)
[2018-07-21 11:21] LABS: Bedside Glucose 311 mg/dL (70-110)
--- NOTE | 2018-07-21 12:10 | NURSING ---
wound photo: right plantar foot
--- NOTE | 2018-07-21 13:56 | CASEMGMT ---
BALBINA ESPINOSA Note: Call to [place] transfer line. Case was assigned to [place]-chest pain coordinator @ ext [phone]. -Clinical information given to [place] including pt transferred from ICU to Telemetry stepdown bed and has been on Bipap therapy. -Updated clinicals including ID notes and ICU progress notes and current vital signs- faxed to . -Fax cover sheet included call back information for Vinicio MORTENSEN CM to be called after today and PCU main phone #. -May need service connection information (not available when BALBINA ESPINOSA spoke with chest pain coordinator) but anticipate transport can be billed under [facility] benefits if needed. -Call to Claudia Powell RN, CM, PCU to update. Carissa GARZAN BALBINA ACM
--- NOTE | 2018-07-21 14:31 | CASEMGMT ---
Received a voice mail from patient's daughter indicating she wants patient to go to a long term when he is discharged from [facility]. It is SW's understanding we are waiting on a bed at [place] so [facility]. Reina ZAMBRANO MSW
[2018-07-21 17:05] LABS: Bedside Glucose 181 mg/dL (70-110)
[2018-07-21 22:00] LABS: Bedside Glucose 75 mg/dL (70-110)
[2018-07-22] VITALS (9 sets, daily range): BP systolic 117–131; BP diastolic 63–89; PULSE 83–128; RESP 16–18; TEMP 36.3–36.9; O2SAT 93–96
[2018-07-22 07:21] LABS: Bedside Glucose 90 mg/dL (70-110)
[2018-07-22] MEDS: glipiZIDE XL 5 MG Tablet PO (07:51)
--- NOTE | 2018-07-22 09:22 | CASEMGMT ---
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 He checked and patient is not service connected so he would not be able to go to a snf on his VA. Nor would he be able to go to SNF on his Medicare as he is at [facility] on his [facility]. He did not sign a form indicating he did not want transferred as he does want transferred. Therefore, the days he has been here do not qualify as a qualifying stay for Medicare. Await transfer to [place]. Reina ZAMBRANO MSW
--- NOTE | 2018-07-22 10:41 | CASEMGMT ---
Addendum entered by Claudia Valdez 07/22/18 13:18: [facility] at [facility] time. Matthew MORTENSEN CM Original Note: Addendum entered by Claudia Valdez 07/22/18 10:58: [place]'s ext is [phone]. Received a call back from her and she is requesting updated clinicals at this time. Labs, meds, VS's faxed at this time as there are no notes/reports yet for today. Matthew MORTENSEN CM Original Note: Call to Lebron at [facility] and updated on pt at this time and [place] states she will call this BALBINA ESPINOSA JAZMYNE with update. Matthew MORTENSEN CM
[2018-07-22] MEDS: Enoxaparin 40 MG/0.4 ML Syringe SC (10:56)
[2018-07-22] MEDS: Famotidine 20 MG Tablet PO (10:56)
[2018-07-22] MEDS: Polyethylene Glycol 3350 17 GM PACKET PO (10:56)
[2018-07-22] MEDS: Insulin Lispro 100 UNIT/ML INSULN.PEN SQ (11:01)
[2018-07-22] MEDS: Insulin Lispro 100 UNIT/ML INSULN.PEN 10 UNIT SC (11:02)
[2018-07-22 11:10] LABS: Bedside Glucose 260 mg/dL (70-110)
[2018-07-22] MEDS: oxyCODONE 5 MG Tablet PO (11:25)
--- NOTE | 2018-07-22 12:58 | PCM.PN.ID ---
Patient Problems: Active and Suspected Problems Right foot soft tissue cellulitis (Acute) Diabetic ulcer of right foot with fat layer exposed (Acute) Type 2 diabetes mellitus with diabetic polyneuropathy (Acute) Delayed wound healing (Acute) Cellulitis of right foot (Acute) Severe sepsis (Acute) Acute respiratory failure with hypoxia (Acute) Subjective: Feeling better, no fever, some upset stomach and constipation. - Physical Exam General: Alert, Cooperative, No apparent distress Lungs: Clear to auscultation, Normal air movement Cardiovascular: Regular rate, Regular Rhythm Abdomen: Soft, Non Tender, Non-Distended Skin: Ulcer/ Wound - R foot photo reviewed Vital Signs Temp Pulse Resp BP Pulse Ox 97.4 F L 128 H 16 129/63 H 93 07/22/18 08:09 07/22/18 11:29 07/22/18 08:09 07/22/18 08:09 07/22/18 08:09 Oxygen Flow Rate (L/min) 4 Oxygen Delivery Method Nasal Cannula Weight: 89.3 kg Body Mass Index (BMI) 27.3 Finger Stick Blood Glucose 285 Intake and Output for Last 24 Hours 07/20/18 07/21/18 07/22/18 23:59 23:59 23:59 Intake Total 4723.2 / 4723.2 1471.5 / 1471.5 680 / 680 Output Total 400 / 400 1100 / 1100 225 / 225 Balance 4323.2 / 4323.2 371.5 / 371.5 455 / 455 Microbiology Past 72 Hours 07/20/18 03:05 Urine Culture - Final Urine, Clean Catch Culture exhibits no growth. 07/19/18 18:45 Gram Stain - Final Wound - Right Foot Wound Culture - Final Staphylococcus aureus#2 Streptococcus group A Anaerobic Culture - Preliminary Checking for anaerobes, further studies to follow. 07/20/18 16:15 Blood Culture - Preliminary Blood Culture (Wb) - No Site/Description Given Streptococcus pyogenes 07/20/18 10:50 Blood Culture - Preliminary Blood Culture (Wb) - Right Wrist Streptococcus pyogenes 07/19/18 13:40 Bacteria Detection (PCR) - Final Blood Culture (Wb) - Venous Streptococcus pyogenes Blood Culture - Final Streptococcus pyogenes 07/19/18 14:50 Blood Culture - Preliminary Blood Culture (Wb) - Anticubital Right No growth in 48 hours. 07/20/18 07:30 Respiratory Panel (PCR) - Final Mucosa - Nasopharyngeal POC Glucose 07/22/18 07/22/18 07/21/18 11:00 06:57 21:34 POC Glucose 260 H 90 75 07/21/18 16:54 POC Glucose 181 H Medical Necessity - Tobacco Use Smoking Status: Never smoker Route of nutrition/ use of supplements: [] Nutritional Intake: [] IV Site: [] Toscano Catheter: [] - Assessment/Plan Antibiotics: [] Assessment/Plan: [] Active and Suspected Problems Right foot soft tissue cellulitis (Acute) Diabetic ulcer of right foot with fat layer exposed (Acute) Type 2 diabetes mellitus with diabetic polyneuropathy (Acute) Delayed wound healing (Acute) Cellulitis of right foot (Acute) Severe sepsis (Acute) Acute respiratory failure with hypoxia (Acute) Severe sepsis with GAS bacteremia from R foot infection with suspected osteo - Per notes, wound probes to bone and MRI consistent with diffuse osteo. MSSA pcr also (+). Course complicated by acute respiratory failure and VERÓNICA. Narrowed vanc/zosyn to unasyn 07/21. Picc was placed 07/20 while he was still bacteremic, so picc likely will need to be exchanged or removed prior to discharge home. Will repeat bcx to document clearance, will get TTE. Will follow
--- NOTE | 2018-07-22 13:07 | PCM.PN.INT ---
Subjective: Patient transferred out of the intensive care unit yesterday. No acute issues have been reported overnight. Patient feels this condition is relatively stable. Patient continues on his baseline 4 L nasal cannula. No productive cough is reported. Vision has reported some nausea and constipation. Patient feels subjectively improved. General: Alert, Oriented x3, Cooperative, No apparent distress, - - No conversational dyspnea. HEENT: Atraumatic, PERRLA, EOMI, Normocephalic, - - No scleral icterus or injection noted. Oral: Moist Mucosa, No Gingival or Mucosal Lesions/ Ulcerations Neck: Supple, No JVD, No Nodes, Trachea Midline Lungs: Clear to auscultation, Normal air movement, No rhonchi, No wheeze, No rales Cardiovascular: Regular rate, Regular Rhythm, Normal S1, Normal S2, No murmurs, No rub noted, No Gallop Abdomen: Bowel Sounds Present, Soft, Non Tender, Non-Distended Extremities: No cyanosis, No edema, Clubbing, - - Foot is wrapped. Skin: - - No extending erythema appreciated. Photo reviewed. Musculoskeletal: No Tenderness to Palpation of Joints or Extremities Lymphatic: No Cervical, Supraclavicular, or Inguinal Adenopathy Neurological: Cranial nerves II-XII grossly intact, Neuro grossly intact, Motor Exam 5/5 strength throughout Psych/Mental Status: Alert and oriented to time, place, person, mood and affect Vital Signs Temp Pulse Resp BP Pulse Ox 36.6 C 89 18 131/89 H 96 07/22/18 11:30 07/22/18 11:30 07/22/18 11:30 07/22/18 11:30 07/22/18 11:30 Oxygen Flow Rate (L/min) 4 Oxygen Delivery Method Nasal Cannula Weight: 89.3 kg Body Mass Index (BMI) 27.3 Finger Stick Blood Glucose 285 Intake and Output for Last 24 Hours 07/20/18 07/21/18 07/22/18 23:59 23:59 23:59 Intake Total 4723.2 / 4723.2 1471.5 / 1471.5 680 / 680 Output Total 400 / 400 1100 / 1100 225 / 225 Balance 4323.2 / 4323.2 371.5 / 371.5 455 / 455 Labs (Last 48 Hours) 07/20/18 07/20/18 07/21/18 16:51 21:44 04:17 WBC 18.1 H RBC 3.90 L Hgb 11.1 L Hct 33.8 L MCV 86.7 MCH 28.5 MCHC 32.8 RDW 14.6 RDW Differential 46.6 H Plt Count 271 MPV 9.7 Immature Gran % (Auto) 0.300 Neut % (Auto) 88.5 H Lymph % (Auto) 5.3 L Stephenson % (Auto) 5.8 Eos % (Auto) 0.0 Baso % (Auto) 0.1 Absolute Neuts (auto) 16.0 H Absolute Lymphs (auto) 0.97 Total Counted Not Reportable Sodium Potassium Chloride Carbon Dioxide Anion Gap BUN Creatinine Estim Creat Clear Calc Est GFR (MDRD) Af Amer Est GFR (MDRD) Non-Af BUN/Creatinine Ratio Glucose Calcium POC Glucose 155 H 402 H 07/21/18 07/21/18 07/21/18 04:17 06:02 11:14 WBC RBC Hgb Hct MCV MCH MCHC RDW RDW Differential Plt Count MPV Immature Gran % (Auto) Neut % (Auto) Lymph % (Auto) Stephenson % (Auto) Eos % (Auto) Baso % (Auto) Absolute Neuts (auto) Absolute Lymphs (auto) Total Counted Sodium 134 L Potassium 4.0 Chloride 102 Carbon Dioxide 19.0 L Anion Gap 13 BUN 20 H Creatinine 1.12 Estim Creat Clear Calc 60.49 Est GFR (MDRD) Af Amer 83 Est GFR (MDRD) Non-Af 69 BUN/Creatinine Ratio 17.9 Glucose 386 H Calcium 7.7 L POC Glucose 361 H 311 H 07/21/18 07/21/18 07/22/18 16:54 21:34 06:57 WBC RBC Hgb Hct MCV MCH MCHC RDW RDW Differential Plt Count MPV Immature Gran % (Auto) Neut % (Auto) Lymph % (Auto) Stephenson % (Auto) Eos % (Auto) Baso % (Auto) Absolute Neuts (auto) Absolute Lymphs (auto) Total Counted Sodium Potassium Chloride Carbon Dioxide Anion Gap BUN Creatinine Estim Creat Clear Calc Est GFR (MDRD) Af Amer Est GFR (MDRD) Non-Af BUN/Creatinine Ratio Glucose Calcium POC Glucose 181 H 75 90 07/22/18 11:00 WBC RBC Hgb Hct MCV MCH MCHC RDW RDW Differential Plt Count MPV Immature Gran % (Auto) Neut % (Auto) Lymph % (Auto) Stephenson % (Auto) Eos % (Auto) Baso % (Auto) Absolute Neuts (auto) Absolute Lymphs (auto) Total Counted Sodium Potassium Chloride Carbon Dioxide Anion Gap BUN Creatinine Estim Creat Clear Calc Est GFR (MDRD) Af Amer Est GFR (MDRD) Non-Af BUN/Creatinine Ratio Glucose Calcium POC Glucose 260 H Microbiology 07/20/18 03:05 Urine, Clean Catch Urine Culture - Final Culture exhibits no growth. 07/19/18 18:45 Wound - Right Foot Gram Stain - Final 07/19/18 18:45 Wound - Right Foot Wound Culture - Final Staphylococcus aureus#2 Streptococcus group A 07/19/18 18:45 Wound - Right Foot Anaerobic Culture - Preliminary Checking for anaerobes, further studies to follow. 07/20/18 16:15 Blood Culture (Wb) - No Site/Description Given Blood Culture - Preliminary Streptococcus pyogenes 07/20/18 10:50 Blood Culture (Wb) - Right Wrist Blood Culture - Preliminary Streptococcus pyogenes 07/19/18 13:40 Blood Culture (Wb) - Venous Bacteria Detection (PCR) - Final Streptococcus pyogenes 07/19/18 13:40 Blood Culture (Wb) - Venous Blood Culture - Final Streptococcus pyogenes 07/19/18 14:50 Blood Culture (Wb) - Anticubital Right Blood Culture - Preliminary No growth in 48 hours. 07/20/18 07:30 Mucosa - Nasopharyngeal Respiratory Panel (PCR) - Final Medical Necessity - Tobacco Use Smoking Status: Never smoker Assessment/Plan All Active Problems Right foot soft tissue cellulitis (Acute) Diabetic ulcer of right foot with fat layer exposed (Acute) Type 2 diabetes mellitus with diabetic polyneuropathy (Acute) Delayed wound healing (Acute) Cellulitis of right foot (Acute) Severe sepsis (Acute) Acute respiratory failure with hypoxia (Acute) RECOMMENDATIONS: 1. Antibiotic and surgical intervention per ID and podiatry 2. Okay to discontinue BiPAP from my perspective 3. Wean oxygen as tolerated 4. Likely okay to leave the intensive care unit from my perspective 5. Await communication with the [facility] IMPRESSIONS: 1. Acute hypoxic respiratory failure secondary to metabolic acidosis and respiratory muscle fatigue Patient did require BiPAP rescue yesterday, but metabolic acidosis appears to be improving with appropriate antibiotics. Patient does have a PICC line at this time, but is tolerating 4 L nasal cannula without difficulty, which is his baseline. Venous Doppler studies were negative. MRI of the foot consistent with osteomyelitis. Doubt patient will require BiPAP rescue at this point. However, cultures continue to be positive and cessation of antibiotics without source control will likely lead to decompensation from a respiratory standpoint. 2. Severe sepsis secondary to right foot cellulitis Infectious disease and podiatry have been consulted. Patient currently has strep pyogenes noted out of blood cultures, which fits with current clinical situation. Cannot exclude deterioration over the next 24 hours. No pressors have been required. Acidosis appears to be significantly improved. Patient reportedly has been recommended further amputation, but patient is refusing at this time. 3. Diabetes mellitus type 2 Patient significant elevation in blood sugars, likely secondary to #2. Patient is tolerating a p.o. diet at this time. Basal insulin will be reinitiated. Sugars are better controlled 4. Hyponatremia/hypochloremia/acute back pain/chronic wound/hypertension/TRICIA Complicates care, management, recovery and prognosis. Patient appears to have hypovolemic hyponatremia and hypochloremia. Patient did receive aggressive volume resuscitation. Renal function appears to be improving. We will continue to monitor closely. Code Visit Inpatient E&M: 09183 Subs Hosp L2
--- NOTE | 2018-07-22 14:05 | CASEMGMT ---
JOSE LUIS called patient's daughter back as she had some questions. JOSE LUIS told her at this point we are still [facility]. She said she talked with the [facility] SW and she said the [facility] cannot get him into a detention. She said they told her she has to talk with the SW at the hospital. JOSE LUIS explained to her that he is currently here on his VA so the days he has been here do not count towards his Medicare days he needs to get a qualifying stay. She said the VA SW told her it doesn't matter. JOSE LUIS told her that SW will call the [facility] SW in [place] to discuss the case. Reina PICHARDO
--- NOTE | 2018-07-22 14:26 | PN_ITS ---
Patient Problems: Active and Suspected Problems Right foot soft tissue cellulitis (Acute) Diabetic ulcer of right foot with fat layer exposed (Acute) Type 2 diabetes mellitus with diabetic polyneuropathy (Acute) Delayed wound healing (Acute) Cellulitis of right foot (Acute) Severe sepsis (Acute) Acute respiratory failure with hypoxia (Acute) Subjective: Shunt was seen and examined. Transferred from the ICU yesterday. Remains on 4 L of oxygen. No acute events from overnight. He was on BiPAP nightly only. Did not require rescue use of BiPAP. Denies fever or chills. Complains of constipation and abdominal distention. Denies any fever or chills. Objective: Objective: Physical exam: General: Alert, Oriented x3, Cooperative, appears comfortable, on 4L oxygen HEENT: Atraumatic, PERRLA, EOMI, Normocephalic Oral: Moist Mucosa Neck: Supple Lungs: Diminished Cardiovascular: Regular rate, Regular Rhythm, Normal S1, Normal S2, No murmurs Abdomen: Bowel Sounds Present, Soft, Non Tender, Non-Distended, No Hepato- splenomegaly Extremities: Edema - Bilateral pedal edema +1, right foot dressing over his TMA Skin: No rashes, No breakdown Musculoskeletal: No Tenderness to Palpation of Joints or Extremities Lymphatic: No Cervical, Supraclavicular, or Inguinal Adenopathy Neurological: Cranial nerves II-XII grossly intact, Neuro grossly intact Psych/Mental Status: Normal Affect, Appropriate Vitals/I&O's: Vital Signs Temp Pulse Resp BP Pulse Ox 97.9 F 89 18 131/89 H 96 07/22/18 11:30 07/22/18 11:30 07/22/18 11:30 07/22/18 11:30 07/22/18 11:30 Oxygen Flow Rate (L/min) 4 Oxygen Delivery Method Nasal Cannula Weight: 89.3 kg Body Mass Index (BMI) 27.3 Finger Stick Blood Glucose 285 Intake and Output for Last 24 Hours 07/20/18 07/21/18 07/22/18 23:59 23:59 23:59 Intake Total 4723.2 / 4723.2 1471.5 / 1471.5 680 / 680 Output Total 400 / 400 1100 / 1100 225 / 225 Balance 4323.2 / 4323.2 371.5 / 371.5 455 / 455 Microbiology Past 72 Hours 07/20/18 03:05 Urine, Clean Catch Urine Culture - Final Culture exhibits no growth. 07/19/18 18:45 Wound - Right Foot Gram Stain - Final 07/19/18 18:45 Wound - Right Foot Wound Culture - Final Staphylococcus aureus#2 Streptococcus group A 07/19/18 18:45 Wound - Right Foot Anaerobic Culture - Preliminary Checking for anaerobes, further studies to follow. 07/20/18 16:15 Blood Culture (Wb) - No Site/Description Given Blood Culture - Preliminary Streptococcus pyogenes 07/20/18 10:50 Blood Culture (Wb) - Right Wrist Blood Culture - Preliminary Streptococcus pyogenes 07/19/18 13:40 Blood Culture (Wb) - Venous Bacteria Detection (PCR) - Final Streptococcus pyogenes 07/19/18 13:40 Blood Culture (Wb) - Venous Blood Culture - Final Streptococcus pyogenes 07/19/18 14:50 Blood Culture (Wb) - Anticubital Right Blood Culture - Preliminary No growth in 48 hours. 07/20/18 07:30 Mucosa - Nasopharyngeal Respiratory Panel (PCR) - Final Laboratory Results 07/21/18 16:54: POC Glucose 181 H 07/21/18 21:34: POC Glucose 75 07/22/18 06:57: POC Glucose 90 07/22/18 11:00: POC Glucose 260 H Current Medications Al Hydroxide/Mg Hydroxide (Mylanta Ii) 30 ml PO Q6H PRN PRN PRN Reason: Gastric Burning Albuterol Sulfate (Ventolin Aerosols) 2.5 mg INHALATION Q2H PRN PRN PRN Reason: dyspnea, wheezing Artificial Tears (Tears Naturale, Artificial Tears) 1 drop LEFT EYE 4X/DAY [facility] Last Admin: 07/22/18 13:05 Dose: Not Given Bisacodyl (Dulcolax) 10 mg RECTAL DAILY PRN PRN PRN Reason: Constipation Dextrose (D50w Syringe) 0 gm IV X1 PRN; Protocol PRN Reason: Hypoglycemia Docusate Sodium (Colace) 200 mg PO BID PRN PRN PRN Reason: Constipation Enoxaparin Sodium (Lovenox) 40 mg SC DAILY [facility] Last Admin: 07/22/18 10:56 Dose: 40 mg Famotidine (Pepcid) 20 mg PO BID [facility] Last Admin: 07/22/18 10:56 Dose: 20 mg Glipizide (Glucotrol Xl) 5 [facility] Last Admin: 07/22/18 07:51 Dose: 5 mg Glucagon () 1 mg IM .X1 PRN PRN Reason: Hypoglycemia Ampicillin Sodium/Sulbactam (Sodium 3 gm/ Sodium Chloride) 112 mls @ 150 mls/hr IV Q8 [facility] Last Admin: 07/22/18 13:06 Dose: 150 mls/hr Insulin Human Lispro (Humalog Kwikpen (Bkc)) 0 unit SQ ACHS [facility]; Protocol Last Admin: 07/22/18 11:01 Dose: 6 u Insulin Human Lispro (Humalog Kwikpen (Bkc)) 10 unit SC TIDCM [facility] Last Admin: 07/22/18 11:02 Dose: 10 u Insulin Human NPH (Humulin N (Bk)) 25 units SC [facility] Last Admin: 07/22/18 07:45 Dose: Not Given Morphine Sulfate () 1 mg IV Q4H PRN PRN PRN Reason: SEVERE PAIN (6-10/10) Nutritional Formula (Lactose Free) (Glucerna Shake) 120 ml PO TIDCM [facility] Last Admin: 07/22/18 11:03 Dose: Not Given Ondansetron HCl (Zofran) 4 mg IV Q8H PRN PRN PRN Reason: Nausea Oxycodone HCl (Oxyir) 5 mg PO Q4H PRN PRN PRN Reason: SEVERE PAIN (6-10/10) Last Admin: 07/22/18 11:25 Dose: 5 mg Polyethylene Glycol (Miralax) 17 gm PO DAILY [facility] Last Admin: 07/22/18 10:56 Dose: 17 gm Senna/Docusate Sodium (Senokot-S, Viviana-Colace) 2 tablet PO BID [facility] Sodium Chloride () 5 - 15 ml IV UD PRN PRN Reason: SALINE FLUSH Last Admin: 07/21/18 21:45 Dose: 10 ml Sodium Chloride (Narciso Pena Nasal [place]) 2 spray NASAL TID PRN PRN PRN Reason: NASAL DRYNESS Medical Necessity - Tobacco Use Smoking Status: Never smoker Assessment/Plan All Active Problems Right foot soft tissue cellulitis (Acute) Diabetic ulcer of right foot with fat layer exposed (Acute) Type 2 diabetes mellitus with diabetic polyneuropathy (Acute) Delayed wound healing (Acute) Cellulitis of right foot (Acute) Severe sepsis (Acute) Acute respiratory failure with hypoxia (Acute) 73-year-old male with past medical history of type II DM, poorly controlled, history of recent TMA to the right foods, who comes in with complaints of fever, chills with right foot pain and swelling as well as nonhealing ulcer. 1. 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 Wound cultures growing streptococcus group A MRI of the foot confirmed osteomyelitis Leucocytosis is slightly improved from 18.21 to 22.1. Continue on IV vancomycin and Zosyn. ID consulted. 2. Streptococcus pyogenes bacteremia, repeat blood cultures showed the same. ID consulted, on IV Unasyn 3. Acute hypoxic respiratory failure secondary to community-acquired pneumonia versus aspiration pneumonia, resolving, on 4L oxygen today, patient has not required rescue BiPAP since transfer from ICU. He was on BiPAP nightly for history of TRICIA, encourage use of incentive spirometer 4. Community acquired pneumonia versus aspiration pneumonia, on unasyn 5. Type II DM, poorly controlled, HbA1c is 9.9, blood sugars are better controlled, On NPH, pre-meal insulin and insulin sliding scale 6. VER[place]NICA likely secondary to dehydration, resolving, will continue to trend BMP 7. Hypertension, controlled, not on meds, will continue to monitor 8. TRICIA on CPAP at home; on Bipap here 9. DVT Ppx- Lovenox SC 10. [facility]: [facility] Code Visit Inpatient E&M: 58054 Subs Hosp L2
--- NOTE | 2018-07-22 14:28 | CASEMGMT ---
Addendum entered by Claudia Courtney 07/22/18 14:38: Pt aware of bed obtained and would like to be notified of transport time once obtained and Jamila aware, voices understanding. Pt also states that he his wallet is locked up in the safe and will need security to bring prior to transport. [place] states that they be faxing consent for pt to sign but it has not been faxed yet. secretary Jamila aware, voices understanding. Matthew MORTENSEN CM Original Note: This BALBINA ESPINOSA received call from [place] transfer center and she requests documentation that pt has not had to use bipap in the last 24 hours and also that C/S be faxed at this time. She states that Dr. Rivera is the accepting physician at this time. She states that pt's room number is W4B and that the contact number for report is [phone] ext [phone]. She also requests MRI disk to be sent with pt. Cassandra MORTENSEN and Jamila [employer] secretary, aware at this time, voice understanding. Pt will have to have transportation set up at this time thru his [facility] and secretary Jamila aware. Dr. Barlow aware of all and placing note regarding bipap that will be faxed once obtained. Matthew MORTENSEN CM
--- NOTE | 2018-07-22 14:39 | DCINST_ITS ---
- Discharge Diagnoses Current Active Problems: Current Active and Chronic Problems Right foot soft tissue cellulitis (Acute) Right foot transmetatarsal amputation (Chronic) Diabetic ulcer of right foot with fat layer exposed (Acute) Type 2 diabetes mellitus with diabetic polyneuropathy (Acute) Delayed wound healing (Acute) Cellulitis of right foot (Acute) Severe sepsis (Acute) Acute respiratory failure with hypoxia (Acute) Reason(s) for Visit for Discharge Instructions: Right foot infection You will use the following diet at home:: Calorie/Carbohydrate Controlled (specify 1200, 1400, etc), Cardiac Your food should be the consistency of: Regular Your liquids should be the consistency of: Regular/Thin Discharge Activity: Return to Normal Activity Allergies/Adverse Reactions: Allergies No Known Allergies Allergy (Verified 05/23/18 23:01) Medications to take at Discharge Glipizide [Glipizide ER] 5 mg PO BID 05/23/18 Insulin Regular, Human [Novolin R] See Protocol IJ TIDCM 05/23/18 Lisinopril [Zestril] 5 mg PO DAILY 05/23/18 Metformin HCl 500 mg PO BID 05/23/18 Insulin NPH Human [Humulin N Pen] 25 units SC BID #0 05/25/18 Insulin Aspart [Novolog Flexpen] 8 units SC TIDCM 07/19/18 Peg 400/Hypromellose/Glycerin [Artificial Tears] 1 drop LEFT EYE 4X/DAY 07/19/18 Primary Care Physician: [facility] [Primary Care Provider] - Test Results: Test results from this visit will be discussed in further detail at your follow- up appointment, if applicable. Proposed Discharge Date: 07/22/18
--- NOTE | 2018-07-22 14:40 | PCM.DC.SUM ---
Discharge Date and Diagnosis Date of Admission: 07/19/18 Date of Discharge: 07/22/18 - Primary Discharge Diagnosis Active and Suspected Problems Right first to fourth metatarsal/medial cuneiform osteomyelitis with cellulitis of the right foot Streptococcus pyogenes bacteremia Acute hypoxic respiratory failure secondary to community-acquired pneumonia Community-acquired pneumonia Possible aspiration pneumonia Poorly controlled type II DM Acute kidney injury, secondary to dehydration - Secondary Discharge Diagnosis Chronic Problems Right foot transmetatarsal amputation (Chronic) TRICIA (obstructive sleep apnea) (Chronic) Wound of foot (Chronic) Hyperlipidemia (Chronic) Diabetes mellitus, type 2 (Chronic) Benign essential hypertension (Chronic) Hospital Course and Treatment Imaging Results: 07/22/18 13:00 Echo Complete W/ Contrast [ECHO] Routine Consultations 07/20/18 23:23 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 Patient was admitted to the regular floor and started on IV antibiotics. He developed progressive shortness of breath and required use of BiPAP. Patient is on CPAP at home and did not have his machine and the time of being admitted. Chest x-ray showed community-acquired pneumonia. He was managed initially on BiPAP and improved to 4 L of oxygen. Started empirically on antibiotics. Blood cultures came back positive for Streptococcus pyogenes. ID consulted. Bodies were narrowed down to IV Unasyn. Wound cultures grew Streptococcus group A. MRI of the foot confirmed osteomyelitis. Patient's overall health as well as his leukocytosis improved. Patient insisted on being transferred to the [facility] for further surgeries on his right foot. Continue to be on 4 L of oxygen and did not require use of rescue BiPAP. Was on BiPAP only at night. He was admitted with acute kidney injury secondary to dehydration that resolved with IV fluids. Subjective: See progress note of a day Objective: See progress note of the day - Physical Exam Vital Signs Temp Pulse Resp BP Pulse Ox 97.9 F 89 18 131/89 H 96 07/22/18 11:30 07/22/18 11:30 07/22/18 11:30 07/22/18 11:30 07/22/18 11:30 Oxygen Flow Rate (L/min) 4 Oxygen Delivery Method Nasal Cannula Weight: 89.3 kg Body Mass Index (BMI) 27.3 Finger Stick Blood Glucose 285 Intake and Output for Last 24 Hours 07/20/18 07/21/18 07/22/18 23:59 23:59 23:59 Intake Total 4723.2 / 4723.2 1471.5 / 1471.5 680 / 680 Output Total 400 / 400 1100 / 1100 225 / 225 Balance 4323.2 / 4323.2 371.5 / 371.5 455 / 455 Microbiology Past 72 Hours 07/20/18 03:05 Urine Culture - Final Urine, Clean Catch Culture exhibits no growth. 07/19/18 18:45 Gram Stain - Final Wound - Right Foot Wound Culture - Final Staphylococcus aureus#2 Streptococcus group A Anaerobic Culture - Preliminary Checking for anaerobes, further studies to follow. 07/20/18 16:15 Blood Culture - Preliminary Blood Culture (Wb) - No Site/Description Given Streptococcus pyogenes 07/20/18 10:50 Blood Culture - Preliminary Blood Culture (Wb) - Right Wrist Streptococcus pyogenes 07/19/18 13:40 Bacteria Detection (PCR) - Final Blood Culture (Wb) - Venous Streptococcus pyogenes Blood Culture - Final Streptococcus pyogenes 07/19/18 14:50 Blood Culture - Preliminary Blood Culture (Wb) - Anticubital Right No growth in 48 hours. 07/20/18 07:30 Respiratory Panel (PCR) - Final Mucosa - Nasopharyngeal POC Glucose 07/22/18 07/22/18 07/21/18 11:00 06:57 21:34 POC Glucose 260 H 90 75 07/21/18 16:54 POC Glucose 181 H Discharge Diet: Low fat/ Low Cholesterol, 2000 mg Sodium Diet, Carb Control Diet Discharge Activity: Return to Normal Activity Home Medications: Medications to take at Discharge Glipizide [Glipizide ER] 5 mg PO BID 05/23/18 Insulin Regular, Human [Novolin R] See Protocol IJ TIDCM 05/23/18 Lisinopril [Zestril] 5 mg PO DAILY 05/23/18 Metformin HCl 500 mg PO BID 05/23/18 Insulin NPH Human [Humulin N Pen] 25 units SC BID #0 05/25/18 Insulin Aspart [Novolog Flexpen] 8 units SC TIDCM 07/19/18 Peg 400/Hypromellose/Glycerin [Artificial Tears] 1 drop LEFT EYE 4X/DAY 07/19/18 Primary Care Physician: AMBROSIO Fall [Primary Care Provider] - Disposition: Acute care Hospital Minutes spent on discharge:: 40 Patient Condition:: Stable Medical Necessity - Tobacco Use Smoking Status: Never smoker Tobacco Use: Non-smoker Meaningful Use Info Meaningful Use Diagnoses (Choose all that apply): None applicable Code Visit Inpatient E&M: 22676 Disch Hosp
--- NOTE | 2018-07-22 15:05 | CASEMGMT ---
Received consent form from [place]. SW had physician and patient sign. Form was faxed back to [place]. Original went in patient's packet and copy went in patient's [facility] chart. Reina PICHARDO
--- NOTE | 2018-07-22 17:57 | NURSING ---
[facility] [place] [facility] Harriett MORTENSEN. Pt left per transport with his family.
[2018-07-25 07:31] LABS: Bedside Glucose 315 mg/dL (70-110)
== END 2018-07-22 17:47 | DRG 463 ==
LOC: ED 14:26 → MS3 15:58 → ICU 07-20 05:47 → PCU 07-21 10:37
PROVIDERS: Family Medicine; Admitting Provider Internal Medicine; Emergency Provider Emergency Medicine; Visit Provider Internal Medicine
DX: T87.89 Other complications of amputation stump (principal); J96.01 Acute respiratory failure with hypoxia; J18.9 Pneumonia, unspecified organism; J69.0 Pneumonitis due to inhalation of food and vomit; A40.0 Sepsis due to streptococcus, group A; R65.20 Severe sepsis without septic shock; E87.1 Hypo-osmolality and hyponatremia; L03.115 Cellulitis of right lower limb; M86.8X7 Other osteomyelitis, ankle and foot; N17.9 Acute kidney failure, unspecified; E11.69 Type 2 diabetes mellitus with other specified complication; E11.65 Type 2 diabetes mellitus with hyperglycemia; E86.0 Dehydration; E11.42 Type 2 diabetes mellitus with diabetic polyneuropathy; Z79.4 Long term (current) use of insulin; B95.0 Streptococcus, group A, as the cause of diseases classified elsewhere; I10 Essential (primary) hypertension; E78.5 Hyperlipidemia, unspecified; G47.33 Obstructive sleep apnea (adult) (pediatric)
CPT/HCPCS: 36569; 36600; 71045; 71046; 72110; 73630; 73718; 80048; 80053; 81001; 82803; 82962; 83036; 83605; 83880; 85025; 85652; 86140; 87040; 87070; 87075; 87077; 87086; 87149; 87186; 87205; 87633; 87640; 93005; 93970; 94002; 97110; 97161; 97166; 97530; 97535; 99284; J7030; J7040; J7050; J7120; A4216; J0295; J1940; J3490

== ENCOUNTER 2018-12-21 10:42 | Emergency (ER) | payer MEDICARE, OTHER, SELFPAY ==
[2018-07-19 16:51] VITALS: BMI 27.3
[2018-12-21 10:43] VITALS: BP 116/71; PULSE 72; RESP 18; TEMP 35.7; O2SAT 98; BMI 27.3
--- NOTE | 2018-12-21 11:07 | ED.VISSUMM ---
- ER Visit Summary Date of Service: 12/21/18 Chief Complaint: [Laceration right leg] History of Present Illness: The patient is a 73 M [presents to the emergency department with complaint of laceration to his right leg that started around 8:30 AM. Patient states that he was taken off a dressing on his leg when he accidentally cut himself with scissors. Patient unsure of his last tetanus. Patient has history of diabetes, hypertension, high cholesterol, coronary artery disease, and history of pneumonia and Cruz's palsy.] Physical Examination: [HEENT-PERRLA, EOMI. Cranial nerves II through XII grossly intact. TMs clear. Mucous membranes moist. No adenopathy. Cardiovascular-regular rate and rhythm without murmur or ectopy Lungs-clear to auscultation, chest wall stable without crepitus or subcu emphysema Abdomen-normoactive bowel sounds, soft, nontender, no rebound or rigidity, no peritoneal signs. Extremities-intact ?4, normal range of motion, normal pulses. Right leg-patient has a 4.5 cm laceration over the right lower leg medially with no significant bleeding noted. He is neurovascular intact distally.] Test Results: [None indicated] Emergency Department Course and Treatment: [Laceration repair-wound sterilely draped and prepped. Wound cleansed with Shur-Clens and irrigated with copious saline. Using 1% lidocaine total of 5 cc used locally to anesthetize the area. Using 4-0 nylon a total of 8 single interrupted sutures placed with good wound edge approximation. Patient tolerated procedure well.] Treatment Plan: [Follow-up with primary care physician in 10 days for suture removal] Disposition: [Discharged home stable condition] Impression: [Laceration right leg 4.5 cm-simple repair] This note was generated with [employer] dictation software. It may contain incorrect words, spelling, and punctuation that were not noted in review of the chart prior to signing ED Disposition - Plan for ED Patient: [place]errals: [place] [Primary Care Provider] -
--- NOTE | 2018-12-21 11:09 | DCINST.ED_ITS ---
ED Disposition - Plan for ED Patient: Instructions: LACERATION, Extrem (Suture, Staple or Tape) Referrals: [place] [Primary Care Provider] - 10 Day for suture removal
--- NOTE | 2018-12-21 11:09 | ED.DEP ---
ED Disposition - Plan for ED Patient: Instructions: LACERATION, Extrem (Suture, Staple or Tape) Referrals: [place] [Primary Care Provider] - 10 Day for suture removal
[2018-12-21] MEDS: Diphth,Pertuss(Acell),Tet Vac 0.5 ML Vial IM (11:14)
[2018-12-21 11:28] VITALS: RESP 18
== END 2018-12-21 11:29 | disposition home or self-care (01) ==
PROVIDERS: Emergency Provider Emergency Medicine
DX: S81.811A Laceration without foreign body, right lower leg, initial encounter (principal); W26.8XXA Contact with other sharp object(s), not elsewhere classified, initial encounter; Y93.89 Activity, other specified; I25.10 Atherosclerotic heart disease of native coronary artery without angina pectoris; I10 Essential (primary) hypertension; E11.9 Type 2 diabetes mellitus without complications; Z95.1 Presence of aortocoronary bypass graft; Z79.4 Long term (current) use of insulin; Z79.84 Long term (current) use of oral hypoglycemic drugs; Z79.899 Other long term (current) drug therapy
CPT/HCPCS: 12002; 90471; 90715; 99282

== ENCOUNTER 2020-05-16 08:30 | Emergency (ER) | payer OTHER, MEDICARE, SELFPAY ==
[2020-05-16 08:33] VITALS: BP 154/74; PULSE 83; RESP 16; TEMP 35.5; O2SAT 97; BMI 27.0
--- NOTE | 2020-05-16 08:53 | ED.DCSUM_ITS ---
History of Present Illness Chief Complaint: Wound Narrative: 75-year-old male presenting with concern for right foot swelling. He has a chronic diabetic ulcer on the right foot. He was seen by his home health home care and home health aides teacher last week who stated it was slightly swollen. He states he cannot tell himself if it is swollen. He states it is not painful like it usually is if he has an infection. [facility] [place]. 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 He saw his recording studio setup worker last Friday who told him to watch it. His recording studio setup worker told him if he gets worse to go to the emergency room. Patient is not had any systemic signs or symptoms. He states he feels otherwise well. He is a follow-up appointment with his recording studio setup worker on this Friday. 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 Lives: Alone Smoking Status: Former smoker Alcohol: None Drugs: None - Family History Maternal Family History: Reports: Diabetes Paternal Family History: Reports: COPD Review of Systems General: Denies: Chills, Fever, Sweats Eyes: Denies: Visual changes - bilaterally, Diplopia ENT: Denies: Rhinorrhea, Sore throat Cardiovascular: Denies: Chest pain, Palpitations Respiratory: Denies: Dyspnea, Cough, Dyspnea on exertion Gastrointestinal: Denies: Abdominal pain, Nausea, Vomiting, Diarrhea, Melena, Hematochezia Genitourinary: Denies: Dysuria, Hematuria, Frequency Musculoskeletal: Reports: Swelling - Right foot swelling. Denies: Extremity Pain Skin: Reports: Rash, - - Chronic diabetic ulcer on plantar surface of right foot. Neurological: Denies: Headache, Weakness, Numbness Psych: Denies: Depression, Anxiety, Suicidal thoughts, Suicidal ideations, -, - Physical Exam Vital Signs/Narrative: Vital Signs Temp Pulse Resp BP Pulse Ox 05/16/20 08:33 96 F L 83 16 154/74 H 97 General: Well nourished, No Acute Distress Head: Normocephalic, Atraumatic Eyes: Perrl, EOMI ENT: Moist mucous membranes, No rhinorrhea Cardiovascular: Regular rate, Regular rhythm Respiratory: No distress, CTA bilaterally Extremities: Nontender, - - 3.5 cm diabetic foot ulcer on the plantar service of the right foot. Serosanguineous fluid is noted on the dressing. There is no purulent drainage. Nontender to palpation.. Negative for: Calf Tenderness Skin: Rash - Erythema and slight edema noted to the dorsal aspect of the right and right ankle. There is no lymphangitic streaking. Neurological: Alert, Oriented x3 Psychological: Normal affect, Normal Mood Diagnostic/Tx/Re-eval - Medical Decision Making 75-year-old male with history of diabetic foot ulcer presenting with erythema and slight swelling of the right foot and ankle. He states he is not had any systemic signs or symptoms. His wound is not draining purulent discharge it is nontender however given early signs of cellulitis patient was placed on antibiotics with first dose in the ED. Patient will follow up with his recording studio setup worker on Friday. He is given return precautions. Patient stable for discharge at this time. Impression: 1. Right foot cellulitis ED Disposition - Plan for ED Patient: Disposition: Home or Assisted Living Instructions: Diabetic Foot Ulcers, ED Cellulitis Prescriptions: Smz/Tmp Ds [Bactrim Ds] 1 tab PO BID #14 tab Transmission Status: Pending to [facility] Cephalexin [Keflex] 500 mg PO Q6 #40 cap Transmission Status: Pending to [facility] [place] [Primary [place] Provider] -
[2020-05-16 09:10] VITALS: BP 129/77; PULSE 62; RESP 15; O2SAT 95
[2020-05-16] MEDS: Smz/Tmp Ds Tablet 1 TABLET PO (09:10)
[2020-05-16] MEDS: Cephalexin 250 MG Capsule 500 MG PO (09:10)
== END 2020-05-16 09:29 | disposition home or self-care (01) ==
LOC: ED 09:28
PROVIDERS: Emergency Provider Student in an Organized Health Care Education/Training Program
DX: L03.115 Cellulitis of right lower limb (principal); I10 Essential (primary) hypertension; E11.621 Type 2 diabetes mellitus with foot ulcer; L97.512 Non-pressure chronic ulcer of other part of right foot with fat layer exposed; E11.42 Type 2 diabetes mellitus with diabetic polyneuropathy; Z79.4 Long term (current) use of insulin; Z79.899 Other long term (current) drug therapy; Z87.891 Personal history of nicotine dependence
CPT/HCPCS: 99283

== ENCOUNTER 2020-06-23 09:43 | Inpatient (IN) | payer OTHER, MEDICARE, SELFPAY ==
[2020-06-23 09:45] VITALS: BP 127/68; PULSE 90; RESP 18; TEMP 36.3; O2SAT 98; BMI 27.1
--- NOTE | 2020-06-23 10:03 | VDLE_ITS ---
Reason For Study: Swelling Procedure LEFT This is a venous duplex using B-mode, color GSV is normal. flow and spectral Doppler. CFV is compressible, spontaneous, phasic, Exam performed in department. competent, and demonstrates normal A preliminary report was called and/or faxed augmentation. to [facility]. FV is compressible, spontaneous, phasic, competent and demonstrates normal augmentation. POP V is compressible, spontaneous, phasic, competent and demonstrates normal augmentation. T/P Trunk is compressible. PTV is compressible. LT PerV is compressible. Interpretation Summary There is no evidence of left lower extremity deep vein thrombosis. Left great saphenous vein appears patent and compressible segmentally. Ordering Physician: Braden Gaxiola Referring Physician: [facility] Performed By: Claudia Olvera RVT
--- NOTE | 2020-06-23 10:11 | ED.DCSUM_ITS ---
History of Present Illness Chief Complaint: Lower Extremity Injury Narrative: Patient presenting for evaluation secondary to redness of his left leg and concern by podiatry for possible DVT. 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 Patient was at a podiatry appointment today, and was noted to have some redness over the medial portion of his left knee that was tender to palpation and they were concerned for the possibility of DVT. Patient reports that over the course of the last 2 days he has had development of this redness as well as redness over his left foot. He reports that they are warm and painful. Denies any chest pain or shortness of breath. He denies any history of DVT, PE, chest pain or hemoptysis or any shortness of breath. No constitutional symptoms such as fever. Patient does report that he was supposed to be started on Augmentin today secondary to a infection of the wound on his right foot. Past Medical History - Allergies and Home Meds Allergies/Adverse Reactions: Allergies No Known Allergies Allergy (Verified 06/23/20 09:45) Primary Care Physician[place] [Primary Care Provider] - Prior records reviewed: Yes Past Medical History: - - Diabetes, hyperlipidemia, hypertension Surgical History: - - Right foot surgery x2, initially TMA in 2004 and recent follow-up surgical intervention. Lives: Spouse/ Significant Other Smoking Status: Former smoker Alcohol: None Drugs: None - Family History Maternal Family History: Reports: Diabetes Paternal Family History: Reports: COPD Review of Systems All systems negative except as indicated General: Denies: Chills, Fever, Sweats Eyes: Denies: Visual changes - bilaterally, Diplopia ENT: Denies: Rhinorrhea, Sore throat Cardiovascular: Denies: Chest pain, Palpitations Respiratory: Denies: Dyspnea, Cough, Dyspnea on exertion Gastrointestinal: Denies: Abdominal pain, Nausea, Vomiting, Diarrhea, Melena, Hematochezia Genitourinary: Denies: Dysuria, Hematuria, Frequency Musculoskeletal: Reports: Extremity Pain Skin: Reports: Rash Neurological: Denies: Headache, Weakness, Numbness Physical Exam Vital Signs/Narrative: Vital Signs Temp Pulse Resp BP Pulse Ox 06/23/20 09:45 97.4 F L 90 18 127/68 H 98 Inital Vital Signs reviewed: Yes - Extremity Exam Left Knee: - - Minimal erythema noted over the medial portion of the patient's distal thigh. This is tender to palpation no induration or fluctuance. Left Ankle: - - Multiple abrasions and scratches which the patient states is from my pet cats Right Foot: - - Dressing is in place from transmetatarsal amputation Left Foot: - - Foot is erythematous and warm to the touch. No tenderness to palpation. General: Well nourished, Well developed Head: Normocephalic, Atraumatic Eyes: Perrl, EOMI Neck: Nontender, Full ROM Cardiovascular: Regular rate, Regular rhythm, No murmurs, - - 2+ radial pulses bilaterally symmetric. 2+ DP pulse of the left. Respiratory: No distress, CTA bilaterally, Chest nontender Skin: Rash Neurological: Alert, Oriented x3, Cranial nerves II-XII grossly intact, Normal Strength, Normal Sensation Diagnostic/Tx/Re-eval Laboratory Data 06/23/20 06/23/20 10:25 10:25 WBC 22.6 H RBC 4.28 L Hgb 11.7 L Hct 36.7 L MCV 85.7 MCH 27.3 MCHC 31.9 L RDW Std Deviation 44.4 H RDW Coeff of Fernando 14.4 Plt Count 332 MPV 9.3 Immature Gran % (Auto) 1.000 H Neut % (Auto) 82.9 H Lymph % (Auto) 7.3 L [place] % (Auto) 8.3 Eos % (Auto) 0.2 Baso % (Auto) 0.3 Absolute Neuts (auto) 18.8 H Absolute Lymphs (auto) 1.66 Nucleated RBC % 0 Sodium 136 Potassium 5.0 Chloride 106 Carbon Dioxide 24.0 Anion Gap 6 BUN 19 H Creatinine 1.19 Estim Creat Clear Calc 55.29 Est GFR (MDRD) Af Amer 77 Est GFR (MDRD) Non-Af 64 BUN/Creatinine Ratio 16.0 Glucose 92 Calcium 8.6 - Medical Decision Making Patient presented due to concern for redness on his leg. On my physical exam this really seems more consistent with a cellulitis but I did perform a duplex ultrasound on the patient which was read as negative for acute DVT. Due to my concern for infectious etiology we performed lab work on the patient which uncovered a white blood cell count of 22,000. Patient has a heart rate of 90, so he does meet sepsis criteria lactic acid blood cultures were obtained, and he will be given Unasyn. Due to the severity of the patient's cellulitis with his sepsis as well as his underlying immunosuppression from diabetes I believe that he requires admission. Patient will be admitted under the hospitalist. ED Disposition - Plan for ED Patient: Disposition: Acute Care Hospital [facility] Diagnosis: Left leg cellulitis, Sepsis [place] [Primary Care Provider] -
[2020-06-23 10:40] LABS: Absolute Lymphocyte Count 1.66 X10^3/uL (0.83-4.51); Absolute Neutrophil Count 18.8 X10^3/uL (2.0-7.7); Basophil# 0.07 X10^3/uL; Basophil% 0.3 % (0-1); Eosinophil# 0.04 X10^3/uL; Eosinophils% 0.2 % (0-5); Hematocrit 36.7 % (40-54); Hemoglobin 11.7 g/dL (13.0-16.5); Lymphocyte # 1.66 X10^3/ul (4.0); Lymphocyte % 7.3 % (19-41); Mean Corp Hgb Conc 31.9 g/dL (32-36); Mean Corpuscular Hgb 27.3 pg (27.0-32.0); Mean Corpuscular Volume 85.7 fL (80-94); Mean Platelet Vol. 9.3 fl (6.2-12.0); Monocyte# 1.89 X10^3/uL; Monocyte% 8.3 % (0-10); NRBC Flagged by Analyzer 0 % (0-5); Neutrophil # 18.75 X10^3/uL (2.7-7.7); Neutrophil % 82.9 % (47-70); POSITIVE DIFFERENTIAL YES; Platelet Count 332 K/mm3 (150-450); RBC Distribution Width CV 14.4 % (11.6-14.6); RBC Distribution Width SD 44.4 fl (35.1-43.9); Red Blood Count 4.28 M/mm3 (4.6-6.2); White Blood Count 22.6 K/mm3 (4.4-11.0)
[2020-06-23 10:44] LABS: Differential Indicated SCAN CRITERIA MET
[2020-06-23 10:54] LABS: Anion Gap 6 (5-15); BUN 19 mg/dL (7-18); Calcium,Total 8.6 mg/dL (8.5-10.1); Chloride 106 mmol/L (98-107); Creatinine, Serum 1.19 mg/dL (0.70-1.30); EST Glomerular Filtration Rate 64 mL/min (>60); Est Glom Filt Rate - Afr Amer 77 mL/min (>60); Estimated Creatinine Clearance 55.29 ml/min; Glucose 92 mg/dL (74-106); Sodium Level 136 mmol/L (136-145)
[2020-06-23 11:06] LABS: Differential Comment SCANNED; Red Cell Morphology NORM C+C NORMAL (NORM C&C)
--- NOTE | 2020-06-23 11:16 | NURSING ---
SPOKE WITH SHANE AT [facility]. FAXED ALL CLINICAL INFORMATION TO [facility] IN ADMISSIONS. [phone]
[2020-06-23 11:26] VITALS: BP 116/83; PULSE 90; RESP 12; TEMP 36.8; O2SAT 96
[2020-06-23 11:41] LABS: Lactic Acid 1.6 mmol/L (0.4-1.9)
[2020-06-23 12:01] VITALS: BP 121/62; PULSE 86; RESP 18; TEMP 37.2; O2SAT 99; BMI 26.4; BMI 26.5
[2020-06-23 12:46] LABS: Bedside Glucose 177 mg/dL (70-110)
[2020-06-23] MEDS: Insulin Lispro 100 UNIT/ML INSULN.PEN SC ×2 (13:47→17:40)
--- NOTE | 2020-06-23 14:05 | PCM.HP.STD ---
Problem List (1) Right foot transmetatarsal amputation Status: Chronic (2) Type 2 diabetes mellitus with diabetic polyneuropathy Status: Chronic (3) Left leg cellulitis Status: Acute (4) Sepsis Status: Acute Qualifiers: Sepsis type: sepsis due to unspecified organism Sepsis acute organ dysfunction status: without acute organ dysfunction Qualified Code(s): A41.9 - Sepsis, unspecified organism (5) TRICIA (obstructive sleep apnea) Status: Chronic (6) Wound of foot Status: Chronic (7) Hyperlipidemia Status: Chronic Qualifiers: (8) Diabetes mellitus, type 2 Status: Chronic (9) Benign essential hypertension Status: Chronic History of Present Illness Date of Admission: 06/23/20 Chief Complaint: leg redness The patient is a 75 year old M presents with leg redness on his left. Saw podiatry and was concerned for DVT and patient was sent to the emergency room. Patient had chills yesterday but the redness began primarily today. 1 from just below his the left knee to his ankle. Patient did have a duplex that was negative for DVT and did receive a dose of ampicillin/sulbactam. Patient states that since he received that antibiotics that his leg is less red. Patient patient has had cellulitis previous. [] Past Medical History Past Medical History (Chronic Problems): Chronic Problems Right foot transmetatarsal amputation (Chronic) Type 2 diabetes mellitus with diabetic polyneuropathy (Chronic) TRICIA (obstructive sleep apnea) (Chronic) Wound of foot (Chronic) Hyperlipidemia (Chronic) Diabetes mellitus, type 2 (Chronic) Benign essential hypertension (Chronic) Allergies No Known Allergies Allergy (Verified 06/23/20 09:45) Home Medications: Ambulatory Orders Medication Instructions Recorded Glipizide [Glipizide ER] 10 mg PO DAILY 05/23/18 Lisinopril [Zestril] 1.25 mg PO QODAY 05/23/18 Metformin HCl 1,000 mg PO BID 05/23/18 Amoxicillin/Potassium Clav 1 ea PO BID 06/23/20 [Augmentin 875-125 Tablet] Aspirin [Aspirin, Baby] 81 mg PO DAILY@0800 06/23/20 Atorvastatin Calcium 40 mg PO QHS 06/23/20 Cholecalciferol (Vitamin D3) 2,000 unit PO DAILY 06/23/20 [D3-1999] Insulin Glargine,Hum.rec.anlog 46 units SC QHS 06/23/20 Magnesium Oxide,Aspartate,Citr 400 mg PO DAILY 06/23/20 [Triple Magnesium Complex] Melatonin/Pyridoxine HCl (B6) 3 mg PO QHS 06/23/20 [Melatonin 3 mg Tablet] Metoprolol Succinate 12.5 mg PO DAILY 06/23/20 Surgical History: - - Right foot surgery x2, initially TMA in 2004 and recent follow-up surgical intervention. Psychiatric History: Anxiety, Depression Lives: Spouse/ Significant Other Smoking Status: Former smoker Alcohol: None Drugs: None - *Family History Maternal History Items: Diabetes Paternal History Items: COPD Review of Systems Constitutional: Reports: Chills. Denies: Fever, Weight Change Eyes: Denies: Blurred vision, Double vision HEENT: Denies: Head Aches, Sinus Congestion, Sinus Drainage Cardiovascular: Denies: Chest Pain, Palpitations Respiratory: Denies: Cough, Shortness of breath at rest, Sputum production Gastrointestinal: Denies: Abdominal Pain, Nausea, Vomiting Genitourinary: Denies: Dysuria Musculoskeletal: Denies: Joint Pain, Joint Tenderness Skin: Reports: Rash Neurological: Denies: Numbness, Tingling, Focal weakness Psychiatric: Denies: Anxiety, Depression Hematologic/ Lymphatic: Denies: Easy Bruising, Easy Bleeding, Hx of blood clot Comment: All review of systems were negative except as mentioned above in the history of present illness and the other review of systems. VTE Information - Inpt Only VTE Present on Admission: No VTE Mechan Device Prophylaxis: None VTE Pharm Prophylaxis ordered?: Yes Patient Problems: Active and Suspected Problems Left leg cellulitis (Acute) Sepsis (Acute) - Physical Exam Vitals/I&O's: Vital Signs Temp Pulse Resp BP Pulse Ox 37.2 C 86 18 121/62 H 99 06/23/20 12:01 06/23/20 12:01 06/23/20 12:01 06/23/20 12:01 06/23/20 12:01 Oxygen Delivery Method Room Air Weight: 81.25 kg Body Mass Index (BMI) 26.4 Finger Stick Blood Glucose 285 Intake and Output for Last 24 Hours 06/21/20 06/22/20 06/23/20 23:59 23:59 23:59 Intake Total 50 / 50 Balance 50 / 50 General: Alert, Cooperative, No apparent distress HEENT: Atraumatic, Normocephalic Oral: Moist Mucosa, No Gingival or Mucosal Lesions/ Ulcerations Neck: No Nodes, Thyroid Normal Size and Texture Lungs: Clear to auscultation, Normal air movement, No rhonchi, No wheeze, No rales Cardiovascular: Regular rate, Regular Rhythm, Normal S1, Normal S2, No murmurs Abdomen: Bowel Sounds Present, Soft, Non Tender, Non-Distended, No Hepato-splenomegaly Extremities: No edema, No Calf Tenderness Skin: - - Erythema just distal to the medial left knee with slight induration but no fluctuance. Also erythema involving the medial ankle and heel and extending superiorly. No interdigital lesion. Patient is status post amputation of part of the left third toe. Musculoskeletal: No Tenderness to Palpation of Joints or Extremities, - - Right leg and compression stocking. Patient is previous right forefoot amputation. Neurological: Deep Tendon Reflexes 2+/4 and Symmetrical, - - No clonus Psych/Mental Status: Normal Affect, Appropriate Laboratory Results 06/23/20 10:25: WBC 22.6 H, RBC 4.28 L, Hgb 11.7 L, Hct 36.7 L, MCV 85.7, MCH 27.3, MCHC 31.9 L, RDW Std Deviation 44.4 H, RDW Coeff of Fernando 14.4, Plt Count 332, MPV 9.3, Immature Gran % (Auto) 1.000 H, Neut % (Auto) 82.9 H, Lymph % (Auto) 7.3 L, [place] % (Auto) 8.3, Eos % (Auto) 0.2, Baso % (Auto) 0.3, Absolute Neuts (auto) 18.8 H, Absolute Lymphs (auto) 1.66, Nucleated RBC % 0, Differential Comment SCANNED, Diff Path Review September, RBC Morphology NORM C+C 06/23/20 10:25: Sodium 136, Potassium 5.0, Chloride 106, Carbon Dioxide 24.0, Anion Gap 6, BUN 19 H, Creatinine 1.19, Estim Creat Clear Calc 55.29, Est GFR (MDRD) Af Amer 77, Est GFR (MDRD) Non-Af 64, BUN/Creatinine Ratio 16.0, Glucose 92, Calcium 8.6 06/23/20 10:58: Lactic Acid 1.6 06/23/20 12:39: POC Glucose 177 H Current Medications Acetaminophen (Acetaminophen 325 Mg Tablet) 650 mg PO Q6H PRN PRN PRN Reason: Pain Score 1-10/Temp > 100.7 F Aspirin (Aspirin 81 Mg Tab.Chew) 81 mg PO DAILY@0800 [facility] Atorvastatin Calcium (Atorvastatin Calcium 40 Mg Tablet) 40 mg PO QHS [facility] Cholecalciferol (Cholecalciferol (Vit D3) 1,000 Unit (25mcg)) 2,000 unit PO DAILY [facility] Glipizide (Glipizide Xl 5 Mg Tablet) 10 mg PO DAILYCM [facility] Ibuprofen (Ibuprofen 400 Mg Tablet) 400 mg PO Q4H PRN PRN PRN Reason: Pain Score 1-10/Temp > 100.7 F Insulin Glargine (Insulin Glargine 100 Units/Ml Pen) 46 units SC QHS [facility] Insulin Human Lispro (Insulin Lispro 100 Unit/Ml Insuln.Pen) 0 unit SC TIDAC [facility]; Protocol Last Admin: 06/23/20 13:47 Dose: 1 unit Documented by: Lisinopril (Lisinopril 5 Mg Tablet) 1.25 mg PO QODAY [facility] Magnesium Chloride (Magnesium Chloride 64 Mg Delay Rel.Tablet) 128 mg PO DAILY [facility] Melatonin (Melatonin 3 Mg Tablet) 3 mg PO QHS [facility] Metformin HCl (Metformin Hcl 500 Mg Tablet) 1,000 mg PO BIDCM [facility] Metoprolol Succinate (Metoprolol(Xl)Succ 25 Mg Tablet) 12.5 mg PO DAILY [facility] Sodium Chloride (0.9% Saline Lock 10 Ml Syringe) 10 - 40 ml IV UD PRN PRN Reason: SALINE FLUSH Assessment/Plan All Active Problems Left leg cellulitis (Acute) Sepsis (Acute) 1. Sepsis Present on admission Secondary to left lower extremity cellulitis follow up BCx 2. Left lower extremity cellulitis Patient endorsing improvements of his leg since receiving ampicillin/sulbactam Will continue with ampicillin sulbactam for now. Duplex performed emergency room was negative for DVT Continue with antibiotics as above. I do not suspect MRSA at this time, but will check a screen if positive then add vancomycin. No evidence of necrotizing fasciitis 3. Diabetes mellitus type 2: Continue with insulin glargine and sliding scale insulin. Continue with Metformin and glipizide 4. VTE prophylaxis with enoxaparin 5. Advanced care planning: Discussed with patient. Patient wished to be full CODE STATUS. Inpatient E&M: [id number] Init Hosp L3
--- NOTE | 2020-06-23 14:24 | NURSING ---
skin photo: left lower leg
--- NOTE | 2020-06-23 14:25 | NURSING ---
wound photo: right foot
--- NOTE | 2020-06-23 14:45 | CASEMGMT ---
BALBINA ESPINOSA Face to Face with patient for initial transition planning/care coordination assessment. BALBINA ESPINOSA introduced self and role at [facility]. Patient lying in bed, alert and oriented. Patient willing to participate in assessment and is able to answer all questions appropriately. Care providers, pharmacy, and demographics verified. Patient wishes to discharge home with resumption of HHC with [facility]. Patient is active with retirement with [facility]. Patient states he has no further needs or concerns at this time. CM to follow for discharge planning needs that may arise. PCP: AMBROSIO [place] Specialists: [employer] Specialist at [facility] [place] Insurance: [employer] [facility] Prescription Benefit: yes Living Will/HPOA: none LNOK: daughter and CINDY Living Arrangements: Patient lives with daughter and CINDY in a 2 story home. Patient states he is independent and able to ambulate stairs. Transportation: self, daughter DME/HHC: Patient states he has walker, wheelchair, cane, shower chair, knee scooter, capap at home. Patient is current with [facility] and wishes to stay with [facility]. BALBINA ESPINOSA updated [facility] of admission and green sheet placed on chart. Disposition Plan: Patient to discharge home with [facility], family support, and follow-up plans in place. Claudia CHAIDEZ, RN, CM
[2020-06-23 16:16] LABS: M R Staph aureus DNA By PCR Negative (Negative); Probe Check PASS; Specimen Processing Control PASS; Staph aureus DNA By PCR POSITIVE (Negative)
[2020-06-23] MEDS: Juven (unflavored) Packet 1 PACKET PO (16:23)
[2020-06-23] MEDS: metFORMIN HCl 500 MG Tablet 1000 MG PO (16:24)
[2020-06-23 16:35] LABS: Bedside Glucose 254 mg/dL (70-110)
[2020-06-23 17:43] VITALS: BP 141/70; PULSE 98; RESP 18; TEMP 36.8; O2SAT 96
[2020-06-23 21:46] VITALS: BP 148/59; PULSE 94; RESP 18; TEMP 37.4; O2SAT 95
[2020-06-23] MEDS: Atorvastatin Calcium 40 MG Tablet PO (22:08)
[2020-06-23] MEDS: Acetaminophen 325 MG Tablet 650 MG PO (22:08)
[2020-06-23] MEDS: MELATONIN 3 MG TABLET PO (22:08)
[2020-06-23 22:15] LABS: Bedside Glucose 138 mg/dL (70-110)
[2020-06-23] MEDS: 0.9% Saline Lock 10 ML Syringe IV (23:20)
[2020-06-24 00:17] VITALS: BP 113/53; PULSE 77; RESP 18; TEMP 36.7; O2SAT 99
[2020-06-24] MEDS: 0.9% Saline Lock 10 ML Syringe IV ×3 (00:17→10:32)
[2020-06-24 04:58] VITALS: BP 123/59; PULSE 72; RESP 18; TEMP 36.8; O2SAT 99
[2020-06-24] MEDS: Acetaminophen 325 MG Tablet 650 MG PO ×2 (05:04→17:48)
[2020-06-24 06:50] LABS: Bedside Glucose 129 mg/dL (70-110)
[2020-06-24 07:31] LABS: Absolute Lymphocyte Count 2.42 X10^3/uL (0.83-4.51); Absolute Neutrophil Count 14.5 X10^3/uL (2.0-7.7); Basophil# 0.06 X10^3/uL; Basophil% 0.3 % (0-1); Eosinophil# 0.09 X10^3/uL; Eosinophils% 0.5 % (0-5); Hematocrit 32.6 % (40-54); Hemoglobin 10.2 g/dL (13.0-16.5); Lymphocyte # 2.42 X10^3/ul (4.0); Mean Corp Hgb Conc 31.3 g/dL (32-36); Mean Corpuscular Hgb 26.8 pg (27.0-32.0); Mean Corpuscular Volume 85.8 fL (80-94); Mean Platelet Vol. 9.4 fl (6.2-12.0); Monocyte# 1.47 X10^3/uL; Monocyte% 7.9 % (0-10); NRBC Flagged by Analyzer 0 % (0-5); Neutrophil # 14.45 X10^3/uL (2.7-7.7); Neutrophil % 77.5 % (47-70); Platelet Count 306 K/mm3 (150-450); RBC Distribution Width SD 43.8 fl (35.1-43.9); White Blood Count 18.6 K/mm3 (4.4-11.0)
[2020-06-24 07:33] LABS: Anion Gap 7 (5-15); BUN 20 mg/dL (7-18); BUN/Creat Ratio 23.4 RATIO (10-20); Calcium,Total 8.2 mg/dL (8.5-10.1); Chloride 105 mmol/L (98-107); Creatinine, Serum 0.86 mg/dL (0.70-1.30); EST Glomerular Filtration Rate 93 mL/min (>60); Est Glom Filt Rate - Afr Amer 113 mL/min (>60); Glucose 124 mg/dL (74-106); Sodium Level 136 mmol/L (136-145)
[2020-06-24] MEDS: glipiZIDE XL 5 MG Tablet 10 MG PO (07:57)
--- NOTE | 2020-06-24 07:57 | NURSING ---
no insulin given at breakfast for blood sugar of 129
[2020-06-24] MEDS: Aspirin 81 MG TAB.CHEW PO (07:58)
[2020-06-24] MEDS: metFORMIN HCl 500 MG Tablet 1000 MG PO ×2 (07:58→17:40)
[2020-06-24] MEDS: Juven (unflavored) Packet 1 PACKET PO ×2 (07:59→17:40)
--- NOTE | 2020-06-24 08:27 | PCM.PN.HOSP ---
Patient Problems: Active and Suspected Problems Left leg cellulitis (Acute) Sepsis (Acute) Subjective: left leg feeling better. Vitals/I&O's: Vital Signs Temp Pulse Resp BP Pulse Ox 36.8 C 72 18 123/59 H 99 06/24/20 04:58 06/24/20 04:58 06/24/20 04:58 06/24/20 04:58 06/24/20 04:58 Oxygen Flow Rate (L/min) 2 Oxygen Delivery Method Room Air Weight: 81.3 kg Body Mass Index (BMI) 26.4 Finger Stick Blood Glucose 285 Intake and Output for Last 24 Hours 06/22/20 06/23/20 06/24/20 23:59 23:59 23:59 Intake Total 1652 / 1652 724 / 724 Output Total 825 / 825 700 / 700 Balance 827 / 827 General: Alert, No apparent distress HEENT: Atraumatic, Normocephalic Lungs: Clear to auscultation, Normal air movement, No rhonchi, No wheeze Cardiovascular: Regular rate, Regular Rhythm, Normal S1, Normal S2 Skin: Rash Present - improved erythema and induration of wound below left knee. still with confluent erythema at margins on left foot and ankle--no change from 06/23, - - wound on plantar aspect of right foot clean based without surrounding erythema. clean margins. Psych/Mental Status: Normal Affect, Appropriate Laboratory Results 06/23/20 10:25: WBC 22.6 H, RBC 4.28 L, Hgb 11.7 L, Hct 36.7 L, MCV 85.7, MCH 27.3, MCHC 31.9 L, RDW Std Deviation 44.4 H, RDW Coeff of Fernando 14.4, Plt Count 332, MPV 9.3, Immature Gran % (Auto) 1.000 H, Neut % (Auto) 82.9 H, Lymph % (Auto) 7.3 L, [place] % (Auto) 8.3, Eos % (Auto) 0.2, Baso % (Auto) 0.3, Absolute Neuts (auto) 18.8 H, Absolute Lymphs (auto) 1.66, Nucleated RBC % 0, Differential Comment SCANNED, Diff Path Review May , RBC Morphology NORM C+C 06/23/20 10:25: Sodium 136, Potassium 5.0, Chloride 106, Carbon Dioxide 24.0, Anion Gap 6, BUN 19 H, Creatinine 1.19, Estim Creat Clear Calc 55.29, Est GFR (MDRD) Af Amer 77, Est GFR (MDRD) Non-Af 64, BUN/Creatinine Ratio 16.0, Glucose 92, Calcium 8.6 06/23/20 10:58: Lactic Acid 1.6 06/23/20 12:39: POC Glucose 177 H 06/23/20 14:30: S.aureus Protein A PCR POSITIVE H, MRSA (PCR) Negative 06/23/20 16:29: POC Glucose 254 H 06/23/20 22:05: POC Glucose 138 H 06/24/20 06:47: POC Glucose 129 H 06/24/20 07:00: WBC 18.6 H, RBC 3.80 L, Hgb 10.2 L, Hct 32.6 L, MCV 85.8, MCH 26.8 L, MCHC 31.3 L, RDW Std Deviation 43.8, RDW Coeff of Fernando 14.0, Plt Count 306, MPV 9.4, Immature Gran % (Auto) 0.800, Neut % (Auto) 77.5 H, Lymph % (Auto) 13.0 L, [place] % (Auto) 7.9, Eos % (Auto) 0.5, Baso % (Auto) 0.3, Absolute Neuts (auto) 14.5 H, Absolute Lymphs (auto) 2.42, Nucleated RBC % 0 06/24/20 07:00: Sodium 136, Potassium 4.0, Chloride 105, Carbon Dioxide 24.0, Anion Gap 7, BUN 20 H, Creatinine 0.86, Estim Creat Clear Calc 76.50, Est GFR (MDRD) Af Amer 113, Est GFR (MDRD) Non-Af 93, BUN/Creatinine Ratio 23.4 H, Glucose 124 H, Calcium 8.2 L Current Medications Acetaminophen (Acetaminophen 325 Mg Tablet) 650 mg PO Q6H PRN PRN PRN Reason: Pain Score 1-10/Temp > 100.7 F Last Admin: 06/24/20 05:04 Dose: 650 mg Documented by: Aspirin (Aspirin 81 Mg Tab.Chew) 81 mg PO DAILY@0800 [facility] Last Admin: 06/24/20 07:58 Dose: 81 mg Documented by: Atorvastatin Calcium (Atorvastatin Calcium 40 Mg Tablet) 40 mg PO QHS [facility] Last Admin: 06/23/20 22:08 Dose: 40 mg Documented by: Cholecalciferol (Cholecalciferol (Vit D3) 1,000 Unit (25mcg)) 2,000 unit PO DAILY [facility] Enoxaparin Sodium (Enoxaparin 40 Mg/0.4 Ml Syringe) 40 mg SC DAILY [facility] Glipizide ([facility] Xl 5 Mg Tablet) [facility] Last Admin: 06/24/20 07:57 Dose: 10 mg Documented by: Ampicillin Sodium/Sulbactam (Sodium 3 gm/ Sodium Chloride) 112 mls @ 150 mls/hr IV Q6 [facility] Last Infusion: 06/24/20 05:49 Dose: Infused Documented by: Vancomycin IV Pharmacy to Dose (1 ea/ Sodium Chloride) 500 mls @ 250 mls/hr IV X1 PRN; Protocol PRN Reason: Rx to Dose Ibuprofen (Ibuprofen 400 Mg Tablet) 400 mg PO Q4H PRN PRN PRN Reason: Pain Score 1-10/Temp > 100.7 F Insulin Glargine (Insulin Glargine 100 Units/Ml Pen) 46 units SC QHS [facility] Last Admin: 06/23/20 22:06 Dose: Not Given Documented by: Insulin Human Lispro (Insulin Lispro 100 Unit/Ml Insuln.Pen) 0 unit SC TIDAC [facility]; Protocol Last Admin: 06/23/20 17:40 Dose: 3 unit Documented by: L-Arginine/L-Glutamine/Calcium [facility] (Walker (Unflavored) Packet) [facility] Last Admin: 06/24/20 07:59 Dose: 1 packet Documented by: Lisinopril (Lisinopril 5 Mg Tablet) 1.25 mg PO QODAY [facility] Magnesium Chloride (Magnesium Chloride 64 Mg Delay Rel.Tablet) 128 mg PO DAILY [facility] Melatonin (Melatonin 3 Mg Tablet) 3 mg PO QHS [facility] Last Admin: 06/23/20 22:08 Dose: 3 mg Documented by: Metformin HCl (Metformin Hcl 500 Mg Tablet) [facility] Last Admin: 06/24/20 07:58 Dose: 1,000 mg Documented by: Metoprolol Succinate (Metoprolol(Xl)Succ 25 Mg Tablet) 12.5 mg PO DAILY [facility] Sodium Chloride (0.9% Saline Lock 10 Ml Syringe) 10 - 40 ml IV UD PRN PRN Reason: SALINE FLUSH Last Admin: 06/24/20 05:03 Dose: 10 ml Documented by: STROKE Vital Signs/Narrative: Vital Signs Temp Pulse Resp BP Pulse Ox 06/24/20 04:58 36.8 C 72 18 123/59 H 99 Medical Necessity - Tobacco Use Smoking Status: Former smoker Assessment/Plan All Active Problems Left leg cellulitis (Acute) Sepsis (Acute) 1. Sepsis Present on admission Secondary to left lower extremity cellulitis follow up BCx 2. Left lower extremity cellulitis Patient endorsing improvements of his leg since receiving ampicillin/sulbactam Will continue with ampicillin sulbactam for now. Duplex performed emergency room was negative for DVT Continue with antibiotics as above. No evidence of necrotizing fasciitis 06/24: MRSA screen negative, however, despite knee lesion improving, foot and ankle unchanged. So will add vancomycin. Additionally, given his history of OM on the right will check an MRI of left foot to rule it out. 3. Diabetes mellitus type 2: with neuropathy fair control Continue with insulin glargine and sliding scale insulin. Continue with Metformin and glipizide 4. Right foot wound chronic clean based. continue wound care 5. VTE prophylaxis with enoxaparin 6. Advanced care planning: Discussed with patient. Patient wished to be full CODE STATUS. Inpatient E&M: 99670 Subs Hosp L2
--- NOTE | 2020-06-24 08:35 | MRI_ITS ---
STUDY: MRI LEFT FOREFOOT WITHOUT CONTRAST REASON FOR EXAM: Male, 75 years old. Cellulitis TECHNIQUE: Standardized fat and water weighted pulse sequences were obtained in all 3 orthogonal planes. COMPARISON: X-ray March 14, 2012 FINDINGS: There is degenerative arthrosis of the metatarsophalangeal joint of the hallux. Normal tibial and fibular sesamoids, with normal sesamoids-first metatarsal articulations. Normal interphalangeal joint of the hallux. There is healed fracture of the first proximal phalanx. Normal medial and lateral heads of the flexor hallucis brevis tendons. Normal flexor and extensor hallucis longus tendons. Normal second through fifth metatarsophalangeal (MTP) joints. Normal interphalangeal joints of the second through fifth toes. Normal proximal, middle and distal phalanges of the second through fifth toes. Normal first through fourth intermetatarsal spaces. Normal flexor and extensor tendons of the second through fifth toes. Normal visualized metatarsi. Normal intrinsic muscles of the forefoot. There is soft tissue swelling of the dorsum of the foot. There is susceptibility artifact associated with metallic density on the plantar aspect at the level of the calcaneus. There is no fluid collection. MRI/Lower Ext/No Jt/w/o IMPRESSION: Soft tissue swelling. No abscess or fluid collection. No MRI evidence of osteomyelitis. Electronically Signed: Jono Villafuerte MD at 11:04 EST , Service support ,
[2020-06-24 10:35] VITALS: BP 118/65; PULSE 78; RESP 18; TEMP 36.3; O2SAT 97
[2020-06-24] MEDS: Magnesium Chloride 64 MG Delay Rel.Tablet 128 MG PO (10:35)
[2020-06-24] MEDS: Enoxaparin 40 MG/0.4 ML Syringe SC (10:35)
[2020-06-24] MEDS: Metoprolol(XL)Succ 25 MG Tablet 12.5 MG PO (10:35)
[2020-06-24] MEDS: Insulin Lispro 100 UNIT/ML INSULN.PEN SC ×2 (12:31→17:38)
[2020-06-24] MEDS: Lisinopril 2.5 MG Tablet 1.25 MG PO (13:19)
[2020-06-24 13:21] VITALS: BP 125/67; PULSE 77; RESP 16; TEMP 36.4; O2SAT 95
--- NOTE | 2020-06-24 13:43 | PCM.RX.CS ---
Consult Pharmacy has been consulted to manage selected antiobiotic: Vancomycin Type of Consult: New start Suspected Infection: Skin/Soft tissue Labs: Sodium 136 mmol/L (136-145) 06/24/20 07:00 Potassium 4.0 mmol/L (3.5-5.1) 06/24/20 07:00 Chloride 105 mmol/L (98-107) 06/24/20 07:00 Carbon Dioxide 24.0 mmol/L (21.0-32.0) 06/24/20 07:00 Anion Gap 7 (5-15) 06/24/20 07:00 BUN 20 mg/dL (7-18) H 06/24/20 07:00 Creatinine 0.86 mg/dL (0.70-1.30) 06/24/20 07:00 Est GFR (MDRD) Af Amer 113 mL/min (>60) 06/24/20 07:00 Est GFR (MDRD) Non-Af 93 mL/min (>60) 06/24/20 07:00 BUN/Creatinine Ratio 23.4 RATIO (10-20) H 06/24/20 07:00 Glucose 124 mg/dL (74-106) H 06/24/20 07:00 Goal Trough: 10-15 mcg/mL Pharmacy Plan for Drug Dosing: NEW START IV VANCOMYCIN Consulting Physician: Dr. Carranza Indication: Cellulitis Goal Trough: 10-15 SrCr: 0.86 CrCl: 76 mL/min Comments: Loading dose x1 ordered- entered 2g IV x1 which was admin 06/24/20 @1031 Vancomcyin Dose: 750mg IV Q12hr to start 06/24/20 @2300 Pending Level: Prior to 4th total dose per protocol 06/25/20 @2230 Pharmacy Service will continue to monitor and adjust dosing as required.
[2020-06-24 15:20] VITALS: BP 136/67; PULSE 79; RESP 18; TEMP 36.7; O2SAT 95
[2020-06-24 17:40] LABS: Bedside Glucose 255 mg/dL (70-110)
[2020-06-24 21:20] VITALS: BP 113/58; PULSE 82; RESP 18; TEMP 37.5; O2SAT 96
[2020-06-24 21:35] LABS: Bedside Glucose 259 mg/dL (70-110)
[2020-06-24] MEDS: MELATONIN 3 MG TABLET PO (21:36)
[2020-06-24] MEDS: Atorvastatin Calcium 40 MG Tablet PO (21:36)
[2020-06-24 23:35] LABS: Bedside Glucose 257 mg/dL (70-110)
[2020-06-25 03:16] VITALS: BP 125/61; PULSE 79; RESP 18; TEMP 36.9; O2SAT 96
[2020-06-25 06:00] LABS: Absolute Lymphocyte Count 2.09 X10^3/uL (0.83-4.51); Absolute Neutrophil Count 14.8 X10^3/uL (2.0-7.7); Basophil# 0.06 X10^3/uL; Basophil% 0.3 % (0-1); Eosinophils% 1.1 % (0-5); Hematocrit 31.1 % (40-54); Hemoglobin 10.1 g/dL (13.0-16.5); Lymphocyte # 2.09 X10^3/ul (4.0); Lymphocyte % 11.2 % (19-41); Mean Corp Hgb Conc 32.5 g/dL (32-36); Mean Corpuscular Hgb 27.7 pg (27.0-32.0); Mean Corpuscular Volume 85.2 fL (80-94); Mean Platelet Vol. 9.4 fl (6.2-12.0); Monocyte# 1.42 X10^3/uL; Monocyte% 7.6 % (0-10); NRBC Flagged by Analyzer 0 % (0-5); Neutrophil # 14.77 X10^3/uL (2.7-7.7); Neutrophil % 79.1 % (47-70); Platelet Count 319 K/mm3 (150-450); RBC Distribution Width CV 13.8 % (11.6-14.6); RBC Distribution Width SD 43.2 fl (35.1-43.9); Red Blood Count 3.65 M/mm3 (4.6-6.2); White Blood Count 18.7 K/mm3 (4.4-11.0)
[2020-06-25 06:28] LABS: Anion Gap 7 (5-15); BUN 18 mg/dL (7-18); BUN/Creat Ratio 21.6 RATIO (10-20); Calcium,Total 8.1 mg/dL (8.5-10.1); Chloride 104 mmol/L (98-107); Creatinine, Serum 0.84 mg/dL (0.70-1.30); EST Glomerular Filtration Rate 96 mL/min (>60); Est Glom Filt Rate - Afr Amer 116 mL/min (>60); Estimated Creatinine Clearance 78.32 ml/min; Glucose 72 mg/dL (74-106); Potassium 3.6 mmol/L (3.5-5.1); Sodium Level 135 mmol/L (136-145)
[2020-06-25 06:41] LABS: Bedside Glucose 66 mg/dL (70-110)
[2020-06-25 06:51] LABS: Bedside Glucose 59 mg/dL (70-110)
[2020-06-25 07:05] LABS: Bedside Glucose 98 mg/dL (70-110)
[2020-06-25] MEDS: Juven (unflavored) Packet 1 PACKET PO (08:46)
[2020-06-25] MEDS: glipiZIDE XL 5 MG Tablet 10 MG PO (08:53)
[2020-06-25] MEDS: Aspirin 81 MG TAB.CHEW PO (08:53)
[2020-06-25 08:54] VITALS: BP 121/54; PULSE 77; RESP 18; TEMP 37; O2SAT 93
[2020-06-25] MEDS: Acetaminophen 325 MG Tablet 650 MG PO ×2 (09:03→21:33)
[2020-06-25] MEDS: Magnesium Chloride 64 MG Delay Rel.Tablet 128 MG PO (10:03)
[2020-06-25] MEDS: Enoxaparin 40 MG/0.4 ML Syringe SC (10:03)
[2020-06-25 10:04] VITALS: BP 121/54; PULSE 77
[2020-06-25] MEDS: Metoprolol(XL)Succ 25 MG Tablet 12.5 MG PO (10:04)
[2020-06-25] MEDS: Lisinopril 2.5 MG Tablet 1.25 MG PO (10:06)
[2020-06-25] MEDS: Insulin Lispro 100 UNIT/ML INSULN.PEN SC ×2 (12:06→18:05)
--- NOTE | 2020-06-25 12:16 | PN_ITS ---
Patient Problems: Active and Suspected Problems Left leg cellulitis (Acute) Sepsis (Acute) Subjective: leg feeling better. Vitals/I&O's: Vital Signs Temp Pulse Resp BP Pulse Ox 37.0 C 77 18 121/54 H 93 06/25/20 08:54 06/25/20 10:04 06/25/20 08:54 06/25/20 10:04 06/25/20 08:54 Oxygen Flow Rate (L/min) 2 Oxygen Delivery Method Room Air Weight: 81.3 kg Body Mass Index (BMI) 26.4 Finger Stick Blood Glucose 285 Intake and Output for Last 24 Hours 06/23/20 06/24/20 06/25/20 23:59 23:59 23:59 Intake Total 1652 / 1652 2703 / 3203 874 / 874 Output Total 825 / 825 1800 / 2100 800 / 800 Balance 827 / 827 903 / 1103 74 / 74 General: Alert, No apparent distress HEENT: Atraumatic, Normocephalic Oral: Moist Mucosa, No Gingival or Mucosal Lesions/ Ulcerations Neck: No Nodes, Thyroid Normal Size and Texture Lungs: Clear to auscultation, Normal air movement, No rhonchi, No wheeze, No rales Cardiovascular: Regular rate, Regular Rhythm, Normal S1, Normal S2, No murmurs Abdomen: Bowel Sounds Present, Soft, Non Tender, Non-Distended, No Hepato- splenomegaly Extremities: No edema, No Calf Tenderness Skin: - - cat scratches on his legs. Resolving erythema distal to his left knee. Slightly withdrawn erythema involving his left heel and ankle but more withdrawn from the line of demarcation today. Psych/Mental Status: Normal Affect, Appropriate Laboratory Results 06/24/20 12:28: POC Glucose 257 H 06/24/20 17:31: POC Glucose 255 H 06/24/20 21:30: POC Glucose 259 H 06/25/20 05:13: WBC 18.7 H, RBC 3.65 L, Hgb 10.1 L, Hct 31.1 L, MCV 85.2, MCH 27.7, MCHC 32.5, RDW Std Deviation 43.2, RDW Coeff of Fernando 13.8, Plt Count 319, MPV 9.4, Immature Gran % (Auto) 0.700, Neut % (Auto) 79.1 H, Lymph % (Auto) 11.2 L, Piatt % (Auto) 7.6, Eos % (Auto) 1.1, Baso % (Auto) 0.3, Absolute Neuts (auto) 14.8 H, Absolute Lymphs (auto) 2.09, Nucleated RBC % 0 06/25/20 05:13: Sodium 135 L, Potassium 3.6, Chloride 104, Carbon Dioxide 24.0, Anion Gap 7, BUN 18, Creatinine 0.84, Estim Creat Clear Calc 78.32, Est GFR (MDRD) Af Amer 116, Est GFR (MDRD) Non-Af 96, BUN/Creatinine Ratio 21.6 H, Glucose 72 L, Calcium 8.1 L 06/25/20 06:33: POC Glucose 66 L 06/25/20 06:47: POC Glucose 59 L 06/25/20 07:03: POC Glucose 98 Current Medications Acetaminophen (Acetaminophen 325 Mg Tablet) 650 mg PO Q6H PRN PRN PRN Reason: Pain Score 1-10/Temp > 100.7 F Last Admin: 06/25/20 09:03 Dose: 650 mg Documented by: Aspirin (Aspirin 81 Mg Tab.Chew) 81 mg PO DAILY@0800 [facility] Last Admin: 06/25/20 08:53 Dose: 81 mg Documented by: Atorvastatin Calcium (Atorvastatin Calcium 40 Mg Tablet) 40 mg PO QHS [facility] Last Admin: 06/24/20 21:36 Dose: 40 mg Documented by: Cholecalciferol (Cholecalciferol (Vit D3) 1,000 Unit (25mcg)) 2,000 unit PO DAILY [facility] Last Admin: 06/25/20 10:05 Dose: 2,000 unit Documented by: Enoxaparin Sodium (Enoxaparin 40 Mg/0.4 Ml Syringe) 40 mg SC DAILY [facility] Last Admin: 06/25/20 10:03 Dose: 40 mg Documented by: Glipizide ([facility] Xl 5 Mg Tablet) [facility] Admin: 06/25/20 08:53 Dose: 10 mg Documented by: Ampicillin Sodium/Sulbactam (Sodium 3 gm/ Sodium Chloride) 112 mls @ 150 mls/hr IV Q6 [facility] Last Admin: 06/25/20 12:06 Dose: 150 mls/hr Documented by: Vancomycin IV Pharmacy to Dose (1 ea/ Sodium Chloride) 500 mls @ 250 mls/hr IV PRN PRN; Protocol PRN Reason: Rx to Dose Vancomycin HCl 750 mg/ Sodium (Chloride) 265 mls @ 250 mls/hr IV Q12H [facility] Last Admin: 06/25/20 10:01 Dose: 250 mls/hr Documented by: Ibuprofen (Ibuprofen 400 Mg Tablet) 400 mg PO Q4H PRN PRN PRN Reason: Pain Score 1-10/Temp > 100.7 F Insulin Glargine (Insulin Glargine 100 Units/Ml Pen) 46 units SC QHS [facility] Last Admin: 06/24/20 21:35 Dose: 46 u Documented by: Insulin Human Lispro (Insulin Lispro 100 Unit/Ml Insuln.Pen) 0 unit SC TIDAC [facility]; Protocol Last Admin: 06/25/20 12:06 Dose: 1 unit Documented by: L-Arginine/L-Glutamine/Calcium HMB (Walker (Unflavored) Packet) [facility] Last Admin: 06/25/20 08:46 Dose: 1 packet Documented by: Lisinopril (Lisinopril 2.5 Mg Tablet) 1.25 mg PO DAILY [facility] Last Admin: 06/25/20 10:06 Dose: 1.25 mg Documented by: Magnesium Chloride (Magnesium Chloride 64 Mg Delay Rel.Tablet) 128 mg PO DAILY [facility] Last Admin: 06/25/20 10:03 Dose: 128 mg Documented by: Melatonin (Melatonin 3 Mg Tablet) 3 mg PO QHS [facility] Last Admin: 06/24/20 21:36 Dose: 3 mg Documented by: Metformin HCl (Metformin Hcl 500 Mg Tablet) 1,000 mg PO BIDCM [facility] Last Admin: 06/25/20 08:52 Dose: Not Given Documented by: Metoprolol Succinate (Metoprolol(Xl)Succ 25 Mg Tablet) 12.5 mg PO DAILY [facility] Last Admin: 06/25/20 10:04 Dose: 12.5 mg Documented by: Nutritional Formula (Lactose Free) (Glucerna Shake 120 Ml Liquid) 120 ml PO TIDCM [facility] Last Admin: 06/25/20 12:07 Dose: Not Given Documented by: Sodium Chloride (0.9% Saline Lock 10 Ml Syringe) 10 - 40 ml IV UD PRN PRN Reason: SALINE FLUSH Last Admin: 06/24/20 10:32 Dose: 10 ml Documented by: STROKE Vital Signs/Narrative: Vital Signs Temp Pulse Resp BP Pulse Ox 06/25/20 10:04 77 121/54 H 06/25/20 08:54 37.0 C 77 18 121/54 H 93 Medical Necessity - Tobacco Use Smoking Status: Former smoker Assessment/Plan All Active Problems Left leg cellulitis (Acute) Sepsis (Acute) 1. Sepsis * Present on admission * Secondary to left lower extremity cellulitis * follow up BCx 2. Left lower extremity cellulitis * improving * Patient endorsing improvements of his leg since receiving ampicillin/sulbactam * Will continue with ampicillin sulbactam for now. * Duplex performed emergency room was negative for DVT * Continue with antibiotics as above. * No evidence of necrotizing fasciitis * 06/24: MRSA screen negative, however, despite knee lesion improving, foot and ankle unchanged. So will add vancomycin. * 06/25: MSSA positive. Change antibiotics to cefazolin DC vancomycin. Monitor overnight, hopefully can be improved enough for discharge on 06/26 with keflex 3. Diabetes mellitus type 2: * with neuropathy * fair control * Continue with insulin glargine and sliding scale insulin. * Continue with Metformin and glipizide 4. Right foot wound * chronic * clean based. * continue wound care 5. VTE prophylaxis with enoxaparin 6. Advanced care planning: Discussed with patient. Patient wished to be full CODE STATUS. Inpatient E&M: 21529 Subs Hosp L2
[2020-06-25] MEDS: Cefazolin 1 GM/50 ML BAG IV ×2 (13:21→21:25)
[2020-06-25 13:25] VITALS: BP 123/56; PULSE 75; RESP 18; TEMP 36.8; O2SAT 96
[2020-06-25 13:26] LABS: Bedside Glucose 158 mg/dL (70-110)
[2020-06-25 17:10] LABS: Bedside Glucose 265 mg/dL (70-110)
[2020-06-25] MEDS: metFORMIN HCl 500 MG Tablet 1000 MG PO (18:04)
[2020-06-25] MEDS: Mag Hydrox/Al Hydrox/Simeth 30 ML UDC 15 ML PO (18:31)
[2020-06-25 21:15] VITALS: BP 152/67; PULSE 87; RESP 18; TEMP 37.8; O2SAT 95
[2020-06-25] MEDS: Atorvastatin Calcium 40 MG Tablet PO (21:34)
[2020-06-25] MEDS: MELATONIN 3 MG TABLET PO (21:35)
[2020-06-25 21:36] LABS: Bedside Glucose 223 mg/dL (70-110)
[2020-06-25 23:02] LABS: Vancomycin, Trough Level 10.2 ug/mL (5.0-15.0)
[2020-06-26 03:06] VITALS: BP 118/48; PULSE 67; RESP 18; TEMP 36.8; O2SAT 96
[2020-06-26 03:11] LABS: Bedside Glucose 145 mg/dL (70-110)
[2020-06-26] MEDS: Cefazolin 1 GM/50 ML BAG IV ×2 (06:46→13:09)
[2020-06-26] MEDS: 0.9% Saline Lock 10 ML Syringe IV (06:46)
[2020-06-26 06:50] LABS: Bedside Glucose 93 mg/dL (70-110)
[2020-06-26 07:38] VITALS: BP 148/69; PULSE 80; RESP 18; TEMP 36.5; O2SAT 98
[2020-06-26 07:39] VITALS: PULSE 90
[2020-06-26 07:44] VITALS: PULSE 80
[2020-06-26] MEDS: Metoprolol(XL)Succ 25 MG Tablet 12.5 MG PO (07:44)
[2020-06-26] MEDS: glipiZIDE XL 5 MG Tablet 10 MG PO (07:45)
[2020-06-26] MEDS: Juven (unflavored) Packet 1 PACKET PO (07:45)
[2020-06-26] MEDS: Magnesium Chloride 64 MG Delay Rel.Tablet 128 MG PO (07:46)
[2020-06-26] MEDS: metFORMIN HCl 500 MG Tablet 1000 MG PO (07:46)
[2020-06-26] MEDS: Enoxaparin 40 MG/0.4 ML Syringe SC (07:47)
[2020-06-26] MEDS: Aspirin 81 MG TAB.CHEW PO (07:47)
[2020-06-26] MEDS: Glucerna Shake 120 ML LIQUID PO (07:50)
[2020-06-26] MEDS: Lisinopril 2.5 MG Tablet 1.25 MG PO (07:50)
--- NOTE | 2020-06-26 08:18 | NURSING ---
There is still some redness and mild warmth noted to the left lower leg/foot. numerous scratches noted. no open areas noted. will monitor.
[2020-06-26 11:16] LABS: Bedside Glucose 237 mg/dL (70-110)
--- NOTE | 2020-06-26 11:20 | DCINST_ITS ---
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) Left leg cellulitis (Acute) Sepsis (Acute) TRICIA (obstructive sleep apnea) (Chronic) Wound of foot (Chronic) Hyperlipidemia (Chronic) Diabetes mellitus, type 2 (Chronic) Benign essential hypertension (Chronic) You will use the following diet at home:: Calorie/Carbohydrate Controlled (specify 1200, 1400, etc) - 1800 Your food should be the consistency of: Regular Your liquids should be the consistency of: Regular/Thin Discharge Activity: Return to Normal Activity Weight Bearing Status: Full weight bearing Allergies/Adverse Reactions: Allergies No Known Allergies Allergy (Verified 06/23/20 09:45) Medications to take at Discharge Glipizide [Glipizide ER] 10 mg PO DAILY 05/23/18 Lisinopril [Zestril] 1.25 mg PO DAILY 05/23/18 Metformin HCl 1,000 mg PO BID 05/23/18 Aspirin [Aspirin, Baby] 81 mg PO DAILY@0800 06/23/20 Atorvastatin Calcium 40 mg PO QHS 06/23/20 Cholecalciferol (Vitamin D3) [D3-2000] 2,000 unit PO DAILY 06/23/20 Insulin Glargine,Hum.rec.anlog 46 units SC QHS 06/23/20 Magnesium Oxide,Aspartate,Citr [Triple Magnesium Complex] 400 mg PO DAILY 06/23/20 Melatonin/Pyridoxine HCl (B6) [Melatonin 3 mg Tablet] 3 mg PO QHS 06/23/20 Metoprolol Succinate 12.5 mg PO DAILY 06/23/20 Cephalexin [Keflex] 500 mg PO TID #20 cap 06/26/20 The following prescriptions were given: Cephalexin [Keflex] 500 mg PO TID #20 cap Transmission Status: Pending to [facility] Primary Care Physician: [facility] [Primary Care Provider] - Please follow up with your Primary Care Physician in: in 2 weeks Test Results: Test results from this visit will be discussed in further detail at your follow- up appointment, if applicable.
--- NOTE | 2020-06-26 11:48 | PHA.DC.MC ---
Pharmacy Service has performed discharge medication reconciliation and counseling for this patient. 1. CEPHALEXIN 500MG PO TID X 20 DOSES The patient's discharge medication list was reviewed for discrepancies and discrepancies were resolved. Home Medications Glipizide [Glipizide ER] 10 mg PO DAILY 05/23/18 Lisinopril [Zestril] 1.25 mg PO DAILY 05/23/18 Metformin HCl 1,000 mg PO BID 05/23/18 Aspirin [Aspirin, Baby] 81 mg PO DAILY@0800 06/23/20 Atorvastatin Calcium 40 mg PO QHS 06/23/20 Cholecalciferol (Vitamin D3) [D3-2000] 2,000 unit PO DAILY 06/23/20 Insulin Glargine,Hum.rec.anlog 46 units SC QHS 06/23/20 Magnesium Oxide,Aspartate,Citr [Triple Magnesium Complex] 400 mg PO DAILY 06/23/20 Melatonin/Pyridoxine HCl (B6) [Melatonin 3 mg Tablet] 3 mg PO QHS 06/23/20 Metoprolol Succinate 12.5 mg PO DAILY 06/23/20 Cephalexin [Keflex] 500 mg PO TID #20 cap 06/26/20 The patient was counseled on the following discharge medications and changes in medications for homegoing were reviewed. The Reason for Use, instructions for use, and potential side effects were reviewed for all new medications. The patient's questions regarding all of their medications were answered. The patient was able to verbally demonstrate an understanding of their discharge medications.
--- NOTE | 2020-06-26 11:55 | CASEMGMT ---
BALBINA ESPINOSA updated [facility] via tc that patient will be dc'd today. Faxed dc information at this time.
[2020-06-26] MEDS: Insulin Lispro 100 UNIT/ML INSULN.PEN SC (12:06)
[2020-06-26 13:10] VITALS: BP 141/67; PULSE 98; RESP 18; TEMP 36.5; O2SAT 98
[2020-06-26 13:17] LABS: Pathologist Review Reviewed
--- NOTE | 2020-06-27 14:42 | CASEMGMT ---
BALBINA ESPINOSA Discharge Follow-up Phone Call: URI: James Strata: 3 Call Date: 06/27/2020 Discharge Date:06/26/2020 Time of Call:1443 Duration: 5 min Admitting Diagnosis: cellulitis BALBINA ESPINOSA completed follow up phone call after recent hospitalization. Patient reports that he is doing well. He denied questions regarding discharge instructions. 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 Patient has called and made follow up appt with podiatry at the [place]. He reports HH will be out to see him tomorrow. Patient reports concerns of not being able to split his lisinopril and metoprolol. He states his dtr or CINDY can buy a pill splitter for him. He denies further questions or concerns at this time.
--- NOTE | 2020-06-27 18:59 | DS.PCM_ITS ---
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 Patient underwent a duplex scan which was negative for DVT, lab was obtained which showed an elevated white blood cell count at 22,000, blood cultures were obtained and the patient was admitted for sepsis secondary to left leg cellulitis. Patient continued on IV antibiotics during his hospitalization, his white count was repeated and was improved during his hospitalization. On 06/26/2020, patient was seen and examined: On examination he appeared in good health and spirits. Vital signs as documented. Skin warm and dry and without overt rashes. Neck without JVD, neck was supple, trachea midline, thyroid was normal. Lungs clear bilaterally, normal air movement was noted. Heart exam notable for regular rhythm, normal sounds and absence of murmurs, rubs or gallops. Abdomen unremarkable and without evidence of organomegaly, masses, or abdominal aortic enlargement. Bowel sounds are present, abdomen is not distended. Extremities-there are multiple excoriated areas on the patient's left lower and upper leg, these do not appear to be draining any material, the area over his left lower leg is slightly reddened but is nontender. Neuro: Cranial nerves II through XII are grossly intact, no focal motor deficits were noted, sensation to light touch and pinprick intact, motor exam 5/5 throughout. Psych: Patient is alert and oriented x3, he does not appear anxious or depressed, he does not appear agitated. Patient stated to this examiner that the scratch alba on his legs were from multiple cats which he has at home. Patient was discharged home in stable condition on 06/26/2020. Patient Problems: Active and Suspected Problems Left leg cellulitis (Acute) Sepsis (Acute) - Physical Exam Vitals/I&O's: Vital Signs Temp Pulse Resp BP Pulse Ox 97.7 F L 98 18 141/67 H 98 06/26/20 13:10 06/26/20 13:10 06/26/20 13:10 06/26/20 13:10 06/26/20 13:10 Oxygen Flow Rate (L/min) 2 Oxygen Delivery Method Room Air Weight: 81.3 kg Body Mass Index (BMI) 26.4 Finger Stick Blood Glucose 285 Intake and Output for Last 24 Hours 06/25/20 06/26/20 06/27/20 23:59 23:59 23:59 Intake Total 2551 / 3151 850 / 850 Output Total 1600 / 2000 900 / 900 Balance 951 / 1151 -50 / -50 Microbiology Past 72 Hours 06/23/20 11:30 Blood Culture (Wb) - Right Hand Blood Culture - Preliminary No growth in 48 hours. 06/23/20 10:58 Blood Culture (Wb) - Right Hand Blood Culture - Preliminary No growth in 48 hours. Discharge Activity: Return to Normal Activity Weight Bearing Status: Full weight bearing Home Medications: Medications to take at Discharge Glipizide [Glipizide ER] 10 mg PO DAILY 05/23/18 Lisinopril [Zestril] 1.25 mg PO DAILY 05/23/18 Metformin HCl 1,000 mg PO BID 05/23/18 Aspirin [Aspirin, Baby] 81 mg PO DAILY@0800 06/23/20 Atorvastatin Calcium 40 mg PO QHS 06/23/20 Cholecalciferol (Vitamin D3) [D3-1999] 2,000 unit PO DAILY 06/23/20 Insulin Glargine,Hum.rec.anlog 46 units SC QHS 06/23/20 Magnesium Oxide,Aspartate,Citr [Triple Magnesium Complex] 400 mg PO DAILY 06/23/20 Melatonin/Pyridoxine HCl (B6) [Melatonin 3 mg Tablet] 3 mg PO QHS 06/23/20 Metoprolol Succinate 12.5 mg PO DAILY 06/23/20 Cephalexin [Keflex] 500 mg PO TID #20 cap 06/26/20 Following Prescriptions Were Given to Patient: Cephalexin [Keflex] 500 mg PO TID #20 cap Transmission Status: Received by [facility] Physician: [facility] [Primary Care Provider] - Please follow up with your Primary Care Physician in: in 2 weeks Disposition: Home Minutes spent on discharge:: 31 Patient Condition:: Stable Medical Necessity - Tobacco Use Smoking Status: Former smoker Meaningful Use Info Meaningful Use Diagnoses (Choose all that apply): None applicable Inpatient E&M: 90658 Disch Hosp
== END 2020-06-26 15:30 | disposition home or self-care (01) | DRG 872 ==
LOC: ED 11:16 → MS3 11:32
PROVIDERS: Emergency Provider Emergency Medicine; Visit Provider Internal Medicine
DX: A41.9 Sepsis, unspecified organism (principal); L03.116 Cellulitis of left lower limb; B95.61 Methicillin susceptible Staphylococcus aureus infection as the cause of diseases classified elsewhere; S80.812A Abrasion, left lower leg, initial encounter; W55.03XA Scratched by cat, initial encounter; E11.42 Type 2 diabetes mellitus with diabetic polyneuropathy; I10 Essential (primary) hypertension; G47.33 Obstructive sleep apnea (adult) (pediatric); E78.5 Hyperlipidemia, unspecified; Z89.431 Acquired absence of right foot; Z79.4 Long term (current) use of insulin; Z79.899 Other long term (current) drug therapy; Z87.891 Personal history of nicotine dependence
CPT/HCPCS: 36415; 73718; 80048; 80202; 82962; 83605; 85025; 87040; 87640; 93971; 97802; 99285; J7040; J7050; A4216; J0295; J3490

== ENCOUNTER 2020-10-04 20:01 | Emergency (ER) | payer OTHER, MEDICARE, SELFPAY ==
[2020-06-23 12:01] VITALS: BMI 26.4
[2020-10-04 20:01] VITALS: BP 152/75; PULSE 97; RESP 16; TEMP 36.3; O2SAT 100; BMI 25.7
--- NOTE | 2020-10-04 20:42 | RAD_ITS ---
STUDY: X-RAY CHEST REASON FOR EXAM: Male, 75 years old. Pain TECHNIQUE: AP portable COMPARISON: 07/20/2018 FINDINGS: The lungs are clear and expanded. There is no demonstrated pleural abnormality. Postop change status post median sternotomy and CABG. Normal size heart. Normal mediastinum and ibeth. Normal visualized pulmonary arteries. Normal visualized aortic arch and descending thoracic aorta. Normal visualized thoracic spine. Normal visualized ribs, clavicles, and shoulders. There is no demonstrated abnormality of the visualized soft tissue structures of the upper abdomen. RAD/Chest 1 View (Portable) IMPRESSION: 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 Electronically Signed: Mustapha Burk MD at 21:31 EDT , Service support ,
--- NOTE | 2020-10-04 20:42 | RAD_ITS ---
STUDY: X-RAY - THORACIC SPINE REASON FOR EXAM: Male, 75 years old. Injury/Pain TECHNIQUE: 3 view(s) of the thoracic spine were obtained. COMPARISON: None. FINDINGS: Normal kyphosis of the thoracic spine. There is no substantial scoliosis. No evidence for acute fracture or subluxation. Multilevel disc space narrowing and endplate spurring. The soft tissue structures are unremarkable. RAD/Thoracic Spine 3 Views IMPRESSION: Moderate spondylosis. No acute fracture.. MRI would be helpful for further evaluation if clinically warranted Electronically Signed: Mustapha Burk MD at 21:30 EDT , Service support ,
[2020-10-04 20:56] LABS: Bacteria 0 SEEN /hpf (None Seen); Mucous, Urine 0 SEEN /hpf (<or=2+); White Blood Cells 0 SEEN /hpf (0-5)
[2020-10-04 20:59] LABS: Absolute Lymphocyte Count 0.68 X10^3/uL (0.83-4.51); Absolute Neutrophil Count 10.3 X10^3/uL (2.0-7.7); Basophil# 0.03 X10^3/uL; Basophil% 0.3 % (0-1); Eosinophil# 0.01 X10^3/uL; Eosinophils% 0.1 % (0-5); Hematocrit 39.4 % (40-54); Hemoglobin 13.1 g/dL (13.0-16.5); Lymphocyte # 0.68 X10^3/ul (0.83-4.51); Lymphocyte % 5.7 % (19-41); Mean Corp Hgb Conc 33.2 g/dL (32-36); Mean Corpuscular Hgb 27.9 pg (27.0-32.0); Mean Corpuscular Volume 83.8 fL (80-94); Mean Platelet Vol. 10.1 fl (6.2-12.0); Monocyte# 0.94 X10^3/uL; Monocyte% 7.8 % (0-10); NRBC Flagged by Analyzer 0 % (0-5); Neutrophil # 10.25 X10^3/uL (2.7-7.7); Neutrophil % 85.5 % (47-70); Platelet Count 260 K/mm3 (150-450); RBC Distribution Width CV 13.4 % (11.6-14.6); RBC Distribution Width SD 41.5 fl (35.1-43.9)
[2020-10-04 21:00] LABS: Color, Urine Yellow (Yellow); Glucose, Dipstick 1000 mg/dl (Normal); Ketone-Dipstick 50 mg/dl (Negative); Leukocyte Esterase-Dipstick Negative /ul (Negative); Nitrite-Dipstick Negative (Negative); Occult Blood-Urine 150 /ul (Negative); Protein-Dipstick 30 mg/dl (Negative); Specific Gravity, Urine 1.015 (1.002-1.030); Urine Bilirubin Dipstick Negative (Negative); Urine Clarity Clear (Clear); Urine Urobilinogen Normal (Normal)
[2020-10-04 21:07] LABS: Squamous Epithelial Cells - UA 0-5 SEEN /hpf (0-5)
[2020-10-04 21:08] LABS: Red Blood Cells-Urine 0-5 SEEN /hpf (0-5)
[2020-10-04 21:24] LABS: ALB/GLOB Ratio 0.8 RATIO (0.9-2.4); AST(SGOT) 25 U/L (15-37); Alanine Aminotransfer ALT/SGPT 16 U/L (16-61); Albumin, Serum 3.6 g/dL (3.2-5.0); Alkaline Phosphatase 67 U/L (45-117); Anion Gap 10 (5-15); BUN 21 mg/dL (7-18); BUN/Creat Ratio 16.8 RATIO (10-20); Calcium,Total 8.8 mg/dL (8.5-10.1); Chloride 99 mmol/L (98-107); Creatinine, Serum 1.25 mg/dL (0.70-1.30); EST Glomerular Filtration Rate 60 mL/min (>60); Est Glom Filt Rate - Afr Amer 73 mL/min (>60); Estimated Creatinine Clearance 52.63 ml/min; Globulin 4.7 g/dL (2.2-4.2); Glucose 333 mg/dL (74-106); Potassium 4.4 mmol/L (3.5-5.1); Protein, Total 8.3 g/dL (6.4-8.2); Sodium Level 133 mmol/L (136-145)
[2020-10-04] MEDS: Morphine 4 MG/ML Syringe IV (22:09)
[2020-10-04] MEDS: Morphine 2 MG/ML Syringe IV (22:56)
[2020-10-04 23:11] VITALS: PULSE 69; RESP 14; O2SAT 99
--- NOTE | 2020-10-05 00:18 | ED.VIS.BACK ---
HPI History of Present Illness Chief Complaint: Back Informant: patient Onset/Context/Timing Onset: Today Context: Sudden Onset Timing: Continuous Quality: Aching and Throbbing Location: Thoracic Worsened by: improves with Nothing Relieved by: Nothing Associated Symptoms Associated Symptoms: Negative for Numbness, Tingling, Radiation to Right Leg, Radiation to Left Leg, Fever, Abdominal Pain, Dysuria, Unable to Ambulate, Unable to Transfer, Urinary Retention, Urinary Incontinence, Constipation and Fecal Incontinence Narrative Narrative: Patient presents with mid back pain that began today. Patient states it began rather suddenly. Patient states the pain is over the lower mid thoracic area. Patient denies any specific trauma or injury. Patient states nothing makes the pain worse and nothing makes it better. Patient describes his pain as throbbing. Patient denies any radiation of the pain. Patient denies any bowel or bladder changes. Patient denies any saddle anesthesia. [facility] Medical History Congestive heart failure (CHF) Home Medications glipizide 10 mg PO DAILY 05/23/18 [History Last Taken Unknown] lisinopril [Zestril] 1.25 mg PO DAILY 05/23/18 [History Last Taken 07/19/18] metformin 1,000 mg PO BID 05/23/18 [History Last Taken Unknown] Insulin Glargine,Hum.rec.anlog 46 units SC QHS 06/23/20 [History Last Taken Unknown] aspirin 81 mg PO DAILY@0800 06/23/20 [History Last Taken Unknown] atorvastatin 40 mg PO QHS 06/23/20 [History Last Taken Unknown] cholecalciferol (vitamin D3) 2,000 unit PO DAILY 06/23/20 [History Last Taken Unknown] magnesium oxide,aspartate,citr 400 mg PO DAILY 06/23/20 [History Last Taken Unknown] melatonin-pyridoxine HCl (B6) 3 mg PO QHS 06/23/20 [History Last Taken Unknown] metoprolol succinate 12.5 mg PO DAILY 06/23/20 [History Last Taken Unknown] hydrocodone-acetaminophen 1 tab PO Q6H PRN PRN 3 Days #10 tablet 10/04/20 [Rx Last Taken Unknown] Allergy/AdvReac Type Severity Reaction Status Date / Time No Known Allergies Allergy Verified 06/23/20 09:45 Social History Smoking Status: Former smoker ROS ROS ED Constitutional Constitutional ED: Denies chills or fever(s) Eyes Eyes: Denies blurry vision or change in vision ENT ENT ED: Denies rhinorrhea or sore throat Cardiovascular Cardiovascular: Denies chest pain or palpitations Respiratory/Chest Respiratory/Chest: Denies cough or dyspnea Gastrointestinal Gastrointestinal: Denies nausea or vomiting Genitourinary Genitourinary ED: Denies dysuria or hematuria Musculoskeletal Musculoskeletal: Reports back pain; Denies neck pain Integumentary Denies abscess or rash Neurologic Neurologic: Denies headache(s) or weakness Allergic/Immunologic Allergic/Immunologic ED: Denies mouth swelling or urticaria EXAM Physical Exam Const Vital Signs: 10/04/20 20:01 10/04/20 23:11 Temperature 97.3 F L Temperature Source Temporal Pulse Rate 97 69 Respiratory Rate 16 14 Blood Pressure 152/75 H Blood Pressure Mean 100 Pulse Ox 100 99 Oxygen Delivery Method Room Air Positive well nourished and well developed General Appearance ED: well developed HEENT Reports moist mucous membranes Neck supple and no JVD Resp normal respiratory effort and clear to auscultation bilaterally Cardio regular rate and regular rhythm GI normal to inspection, nondistended, normoactive bowel sounds, soft to palpation and non-tender Back/Spine Thoracic Spine / Upper Back: paraspinal muscle tenderness bilateral Lumbar Spine / Lower Back: ROM limited Extremity normal to inspection General Extremety ED: Negative for edema or tenderness General Extremity: Negative for edema Neuro oriented x3 and no sensory deficits noted Sensorium / Orientation: alert Motor Exam: strength 5/5 throughout Psych mental status grossly normal MDM MDM MDM Narrative Medical decision making narrative: Patient was given a dose of morphine here. Portable 1 view chest x-ray was obtained. On my interpretation, lung amaya are clear. There is normal cardiac silhouette. Bony thorax is normal. There is no acute process noted. Radiologist also interpreted the x-ray and agrees. X-rays of the thoracic spine were obtained. There are 3 views. On my interpretation, there is some mild degenerative changes. There is no acute fracture, spondylolisthesis, or spondylolysis. CBC shows a slight leukocytosis of 12.0. Comprehensive metabolic profile showed an elevated glucose of 333. Urinalysis does not show any evidence of urinary tract infection. Patient was feeling better on reevaluation. Patient was able to sit up and stand to urinate. Patient was given a repeat dose of morphine. Patient was given a prescription for [place]. Patient was instructed to follow-up with his primary care physician in 5 to 7 days. Patient understood and was agreeable with the plan. All questions were answered. Lab Data Attestation: I reviewed the patient's lab results. Labs: Laboratory Results - last 24 hr 10/04/20 10/04/20 10/04/20 20:34 20:34 20:50 WBC 12.0 H RBC 4.70 Hgb 13.1 Hct 39.4 L MCV 83.8 MCH 27.9 MCHC 33.2 RDW Std Deviation 41.5 RDW Coeff of Fernando 13.4 Plt Count 260 MPV 10.1 Immature Gran % (Auto) 0.600 Neut % (Auto) 85.5 H Lymph % (Auto) 5.7 L [place] % (Auto) 7.8 Eos % (Auto) 0.1 Baso % (Auto) 0.3 Absolute Neuts (auto) 10.3 H Absolute Lymphs (auto) 0.68 L Nucleated RBC % 0 Sodium 133 L Potassium 4.4 Chloride 99 Carbon Dioxide 24.0 Anion Gap 10 BUN 21 H Creatinine 1.25 Estim Creat Clear Calc 52.63 Est GFR (MDRD) Af Amer 73 Est GFR (MDRD) Non-Af 60 BUN/Creatinine Ratio 16.8 Glucose 333 H Calcium 8.8 Total Bilirubin 1.00 AST 25 ALT 16 Alkaline Phosphatase 67 Total Protein 8.3 H Albumin 3.6 Globulin 4.7 H Albumin/Globulin Ratio 0.8 L Urine Color Yellow Urine Clarity Clear Urine pH 6.0 Ur Specific [place] 1.015 Urine Protein 30 H Urine Glucose (UA) 1000 H Urine Ketones 50 H Urine Occult Blood 150 H Urine Nitrite Negative Urine Bilirubin Negative Urine Urobilinogen Normal Ur Leukocyte Esterase Negative Urine RBC 0-5 SEEN Urine WBC 0 SEEN Ur Squamous Epith Cells 0-5 SEEN Urine Bacteria 0 SEEN Urine Mucus 0 SEEN Radiography X-Ray: T-Spine, Read by ED Physician, Read by Radiologist, No Fracture and DJD Diagnostic Testing: Radiology Impression Chest X-Ray 10/04/20 20:42 IMPRESSION: 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 Electronically Signed: Mustapha Burk MD at 21:31 EDT , Service support , Thoracic Spine X-Ray 10/04/20 20:42 IMPRESSION: Moderate spondylosis. No acute fracture.. MRI would be helpful for further evaluation if clinically warranted Electronically Signed: Mustapha Burk MD at 21:30 EDT , Service support , Discharge Plan Triage Chief Complaint: Back ED Provider: Praveen Liao Dx/Rx/DC Orders Clinical Impression: Acute thoracic myofascial strain Instructions: ED Back Pain (Acute or Chronic), ED Thoracic Spine Strain Prescriptions: New hydrocodone-acetaminophen [hydrocodone-acetaminophen] 1 TABLET tablet 1 tab PO Q6H PRN PRN (Reason: Pain) 3 Days Qty: 10 RF: 0 No Action metformin 500 MG tablet 1,000 mg PO BID RF: 0 glipizide 5 MG tablet extended release 24hr 10 mg PO DAILY RF: 0 lisinopril [Zestril] 5 MG tablet 1.25 mg PO DAILY RF: 0 aspirin 81 MG tablet,chewable 81 mg PO DAILY@0800 RF: 0 melatonin-pyridoxine HCl (B6) 1 EACH tablet 3 mg PO QHS RF: 0 atorvastatin 40 MG tablet 40 mg PO QHS RF: 0 metoprolol succinate 25 MG tablet extended release 24 hr 12.5 mg PO DAILY RF: 0 cholecalciferol (vitamin D3) 50 MCG capsule 2,000 unit PO DAILY RF: 0 magnesium oxide,aspartate,citr 400 MG capsule 400 mg PO DAILY RF: 0 Insulin Glargine,Hum.rec.anlog 46 units SC QHS RF: 0 [facility] - 3-5 Days Disposition Disposition: Home, self care Discharge Date/Time: 10/04/20 23:12
== END 2020-10-04 23:12 | disposition home or self-care (01) ==
PROVIDERS: Emergency Provider Emergency Medicine
DX: S29.012A Strain of muscle and tendon of back wall of thorax, initial encounter (principal); X58.XXXA Exposure to other specified factors, initial encounter; Y93.9 Activity, unspecified; Y92.9 Unspecified place or not applicable; Y99.9 Unspecified external cause status; I50.9 Heart failure, unspecified; Z79.82 Long term (current) use of aspirin; Z79.899 Other long term (current) drug therapy; Z87.891 Personal history of nicotine dependence
CPT/HCPCS: 71045; 72072; 80053; 81001; 85025; 96374; 96376; 99283; A4216

== ENCOUNTER 2020-10-23 02:08 | Emergency (ER) | payer OTHER, MEDICARE, SELFPAY ==
[2020-10-23 02:09] VITALS: BP 185/84; PULSE 78; RESP 17; TEMP 36.4; O2SAT 98; BMI 26.6
[2020-10-23 02:11] VITALS: BP 185/84; PULSE 76; RESP 15; TEMP 36.4; O2SAT 99
[2020-10-23] MEDS: Ondansetron 4 MG/2 ML Vial IV (02:24)
[2020-10-23] MEDS: HYDROmorphone 1 MG/ML Syringe IV (02:24)
--- NOTE | 2020-10-23 02:33 | ED.VIS.BACK ---
HPI History of Present Illness Chief Complaint: Back Informant: patient Onset/Context/Timing Onset: Days Context: Gradual Onset Timing: Intermittent Quality: Sharp Location: Thoracic Current Severity: Moderate Maximum Severity: Severe Worsened by: improves with Movement Relieved by: Nothing Associated Symptoms Associated Symptoms: Negative for Numbness, Tingling, Radiation to Right Leg, Radiation to Left Leg, Unable to Ambulate and Unable to Transfer Narrative Narrative: Patient presents to the emergency department with left thoracic back pain. Patient states he has been having this intermittently for the past few months. At times, he states that I get severe and he cannot control his pain. The patient was seen here on the second of this month. He was diagnosed with a muscular strain. Patient was discharged home. 2 days later, [facility] to [facility] and significantly elevated blood sugar. There was concern for sepsis and they were unsure of where the etiology was. He is discharged with a PICC line. He is on antibiotics still. He denies fevers or chills. He did try his Tylenol tonight for his pain, but cannot control it. He denies chest pain or shortness of breath. He states this is the normal pain he gets. [facility] Medical History Congestive heart failure (CHF) Home Medications glipizide 10 mg PO DAILY 05/23/18 [History Last Taken Unknown] lisinopril [Zestril] 10 mg PO DAILY 05/23/18 [History Last Taken 07/19/18] metformin 1,000 mg PO BID 05/23/18 [History Last Taken Unknown] Insulin Glargine,Hum.rec.anlog 22 units SC QHS 06/23/20 [History Last Taken Unknown] aspirin 81 mg PO DAILY@0800 06/23/20 [History Last Taken Unknown] atorvastatin 40 mg PO QHS 06/23/20 [History Last Taken Unknown] cholecalciferol (vitamin D3) 2,000 unit PO DAILY 06/23/20 [History Last Taken Unknown] magnesium oxide,aspartate,citr 400 mg PO DAILY 06/23/20 [History Last Taken Unknown] melatonin-pyridoxine HCl (B6) 3 mg PO QHS 06/23/20 [History Last Taken Unknown] metoprolol succinate 50 mg PO BID 06/23/20 [History Last Taken Unknown] hydrocodone-acetaminophen 1 tab PO Q6H PRN PRN 3 Days #10 tablet 10/04/20 [Rx Last Taken Unknown] cefazolin 6 g IV DAILY 10/23/20 [History Last Taken Unknown] hydrocodone-acetaminophen 1 tab PO Q6H PRN PRN 3 Days #10 tablet 10/23/20 [Rx Last Taken Unknown] insulin aspart (niacinamide) 8 unit SUBCUT TID 10/23/20 [History Last Taken Unknown] lidocaine-elastic bandage 3 patch.wk BID 10/23/20 [History Last Taken Unknown] rivaroxaban 20 mg PO DAILY 10/23/20 [History Last Taken Unknown] Allergy/AdvReac Type Severity Reaction Status Date / Time No Known Allergies Allergy Verified 06/23/20 09:45 Social History Smoking Status: Former smoker ROS ROS ED Constitutional Constitutional ED: Denies chills or fever(s) Eyes Eyes: Denies blurry vision or change in vision ENT ENT ED: Denies ear pain or sore throat Cardiovascular Cardiovascular: Denies chest pain or palpitations Respiratory/Chest Respiratory/Chest: Denies cough, dyspnea or dyspnea on exertion Gastrointestinal Gastrointestinal: Denies abdominal pain, nausea or vomiting Genitourinary Genitourinary ED: Denies dysuria or urinary frequency Musculoskeletal Musculoskeletal: Reports back pain and myalgias; Denies arthralgias Integumentary Denies rash Neurologic Neurologic: Denies headache(s) or paresthesias Psychiatric Psychiatric: Denies anxiety or depression Endocrine Endocrinology: Denies polydipsia or polyuria Allergic/Immunologic Allergic/Immunologic ED: Denies urticaria EXAM Physical Exam Const Vital Signs: 10/23/20 02:09 10/23/20 02:11 Temperature 97.5 F L 97.5 F L Temperature Source Temporal Temporal Pulse Rate 78 76 Respiratory Rate 17 15 Blood Pressure 185/84 H 185/84 H Blood Pressure Mean 117 117 Pulse Ox 98 99 Oxygen Delivery Method Room Air Room Air Positive well nourished and well developed General Appearance ED: well developed HEENT Reports normocephalic, head/scalp atraumatic and moist mucous membranes Eyes PERRL and EOMs intact bilaterally Neck no lymphadenopathy and supple General: Negative for tenderness Chest Wall inspection of chest normal Resp normal respiratory effort and clear to auscultation bilaterally Cardio regular rate, regular rhythm and no murmurs GI normal to inspection, nondistended, normoactive bowel sounds Palpation: Negative for tender, guarding or rebound tenderness present Back/Spine no CVA tenderness, normal to inspection and no thoracic nor lumbar tenderness Back/Spine Narrative: Patient is point tender in the posterior left thoracic area. There is spasm. He has no midline tenderness. Cervical Spine: Negative for cervical spine tenderness Thoracic Spine / Upper Back: paraspinal muscle tenderness; Negative for thoracic spinal tenderness Extremity normal to inspection General Extremety ED: Negative for tenderness Neuro oriented x3 and CN's II-XII intact bilaterally Neuro Narrative: No focal deficits appreciated. Sensorium / Orientation: alert Psych mental status grossly normal Skin no rashes or lesions noted, no wounds and skin turgor normal MDM MDM MDM Narrative Medical decision making narrative: Patient presents with exacerbation of his back pain. He is mildly hypertensive. He has no chest pain or shortness of breath. He is point tender in the thoracic musculature. I did obtain a chest x-ray. There is no evidence of pneumothorax or occult rib fracture. Patient was treated with IV analgesics. He is now resting more comfortably. He has been battling with this pain for some time. He does have an outpatient pain management appointment, but not for 2 weeks. I am going to give a short course of analgesics for acute pain control not controlled by his gabapentin or Tylenol. He will be discharged home. Impression 1. Exacerbation of thoracic back pain Discharge Plan Triage Chief Complaint: Back ED Provider: Braden Hensley Dx/Rx/DC Orders Instructions: ED Back Pain (Acute or Chronic) Prescriptions: New hydrocodone-acetaminophen [hydrocodone-acetaminophen] 1 TABLET tablet 1 tab PO Q6H PRN PRN (Reason: Pain) 3 Days Qty: 10 RF: 0 No Action metformin 500 MG tablet 1,000 mg PO BID RF: 0 glipizide 5 MG tablet extended release 24hr 10 mg PO DAILY RF: 0 lisinopril [Zestril] 5 MG tablet 10 mg PO DAILY RF: 0 aspirin 81 MG tablet,chewable 81 mg PO DAILY@0800 RF: 0 melatonin-pyridoxine HCl (B6) 1 EACH tablet 3 mg PO QHS RF: 0 atorvastatin 40 MG tablet 40 mg PO QHS RF: 0 metoprolol succinate 25 MG tablet extended release 24 hr 50 mg PO BID RF: 0 cholecalciferol (vitamin D3) 50 MCG capsule 2,000 unit PO DAILY RF: 0 magnesium oxide,aspartate,citr 400 MG capsule 400 mg PO DAILY RF: 0 Insulin Glargine,Hum.rec.anlog 22 units SC QHS RF: 0 hydrocodone-acetaminophen [hydrocodone-acetaminophen] 1 TABLET tablet 1 tab PO Q6H PRN PRN (Reason: Pain) 3 Days Qty: 10 RF: 0 cefazolin 1 gram Piggyback 6 g IV DAILY RF: 0 insulin aspart (niacinamide) 100 unit/mL (3 mL) Insulin Pen 8 unit SUBCUT TID RF: 0 lidocaine-elastic bandage 3 patch.wk BID RF: 0 rivaroxaban 20 mg Tablet 20 mg PO DAILY RF: 0 [facility] [Primary Care Provider] -
--- NOTE | 2020-10-23 02:37 | RAD_ITS ---
STUDY: X-RAY CHEST REASON FOR EXAM: Male, 75 years old. sob TECHNIQUE: Single AP portable view of the chest. COMPARISON: None. FINDINGS: The lungs are underexpanded with patchy opacities within the left lower lobe concerning for pneumonia. There is no demonstrated pleural abnormality. Normal size heart. Midline sternotomy wires seen. Normal mediastinum and ibeth. Normal visualized pulmonary arteries. Normal visualized aortic arch and descending thoracic aorta. Normal visualized thoracic spine. Normal visualized ribs, clavicles, and shoulders. There is no demonstrated abnormality of the visualized soft tissue structures of the upper abdomen. RAD/Chest 1 View (Portable) IMPRESSION: Possible left lower lobe pneumonia, clinical correlation recommended. Electronically Signed: Latoya Gayle MD at 3:02 EDT , Service support ,
[2020-10-23 03:37] VITALS: BP 148/85; PULSE 70; RESP 16
== END 2020-10-23 03:38 | disposition home or self-care (01) ==
LOC: ED 02:33
PROVIDERS: Emergency Provider Emergency Medicine
DX: M54.6 Pain in thoracic spine (principal); I50.9 Heart failure, unspecified; Z87.891 Personal history of nicotine dependence; Z79.82 Long term (current) use of aspirin; Z79.899 Other long term (current) drug therapy; Z79.4 Long term (current) use of insulin
CPT/HCPCS: 71045; 96374; 96375; 99283; A4216; J2405

== ENCOUNTER 2020-10-27 21:50 | Emergency (ER) | payer OTHER, MEDICARE, SELFPAY ==
[2020-10-27 21:51] VITALS: BP 160/81; PULSE 83; RESP 15; TEMP 36.4; O2SAT 94; BMI 25.5
--- NOTE | 2020-10-27 22:35 | EX.ED.DYSGE1 ---
HPI History of Present Illness Chief Complaint: Other, Pain/Inj Narrative Narrative: 75-year-old male presenting with a clogged PICC line. Patient's daughter called the nursing line and they were told to bring him to the ER to get this flushed. Patient was at the [facility] today diagnosed with a TIA but sent home because he is on maximal medical therapy. He has history of multiple infections including urinary infections, osteomyelitis of his feet, pneumonia. Patient has a PICC line currently that he is getting Ancef through. Per daughter patient is at his baseline currently. He does not have a fever. [facility] Medical History Congestive heart failure (CHF) Home Medications glipizide 10 mg PO DAILY 05/23/18 [History Last Taken Unknown] lisinopril [Zestril] 10 mg PO DAILY 05/23/18 [History Last Taken 07/19/18] metformin 1,000 mg PO BID 05/23/18 [History Last Taken Unknown] Insulin Glargine,Hum.rec.anlog 22 units SC QHS 06/23/20 [History Last Taken Unknown] aspirin 81 mg PO DAILY@0800 06/23/20 [History Last Taken Unknown] atorvastatin 40 mg PO QHS 06/23/20 [History Last Taken Unknown] cholecalciferol (vitamin D3) 2,000 unit PO DAILY 06/23/20 [History Last Taken Unknown] magnesium oxide,aspartate,citr 400 mg PO DAILY 06/23/20 [History Last Taken Unknown] melatonin-pyridoxine HCl (B6) 3 mg PO QHS 06/23/20 [History Last Taken Unknown] metoprolol succinate 50 mg PO BID 06/23/20 [History Last Taken Unknown] hydrocodone-acetaminophen 1 tab PO Q6H PRN PRN 3 Days #10 tablet 10/04/20 [Rx Last Taken Unknown] cefazolin 6 g IV DAILY 10/23/20 [History Last Taken Unknown] hydrocodone-acetaminophen 1 tab PO Q6H PRN PRN 3 Days #10 tablet 10/23/20 [Rx Last Taken Unknown] insulin aspart (niacinamide) 8 unit SUBCUT TID 10/23/20 [History Last Taken Unknown] lidocaine-elastic bandage 3 patch.wk BID 10/23/20 [History Last Taken Unknown] rivaroxaban 20 mg PO DAILY 10/23/20 [History Last Taken Unknown] Allergy/AdvReac Type Severity Reaction Status Date / Time No Known Allergies Allergy Verified 06/23/20 09:45 Social History Smoking Status: Former smoker ROS ROS ED Constitutional Constitutional ED: Denies chills or fever(s) Eyes Eyes: Denies blurry vision or change in vision Cardiovascular Cardiovascular: Denies chest pain or palpitations Respiratory/Chest Respiratory/Chest: Denies cough or dyspnea Gastrointestinal Gastrointestinal: Denies abdominal pain, nausea or vomiting Genitourinary Genitourinary ED: Denies dysuria or hematuria Musculoskeletal Musculoskeletal: Denies arthralgias or myalgias Neurologic Neurologic: Denies headache(s), paresthesias or weakness Psychiatric Psychiatric: Denies anxiety or depression EXAM Physical Exam Const Vital Signs: 10/27/20 21:51 Temperature 97.6 F L Temperature Source Temporal Pulse Rate 83 Respiratory Rate 15 Blood Pressure 160/81 H Blood Pressure Mean 107 Pulse Ox 94 Oxygen Delivery Method Room Air Positive well nourished General Appearance ED: NAD; Negative for pallor HEENT Reports moist mucous membranes Negative for trauma Eyes PERRL and EOMs intact bilaterally Resp normal respiratory effort Cardio regular rate and regular rhythm Extremity Extremity Narrative: PICC line in left AC Neuro oriented x3 Sensorium / Orientation: alert Psych mental status grossly normal Skin General Skin Exam: Negative for jaundice or pallor MDM MDM MDM Narrative Medical decision making narrative: Patient presenting for clogged PICC line. Alteplase was used to unclog this. Is now functional. Patient will be discharged home in stable condition. Impression: 1. Clotted PICC line Discharge Plan Triage Chief Complaint: Other, Pain/Inj ED Provider: Carrington Inman Dx/Rx/DC Orders Instructions: ED PICC Line Care Prescriptions: No Action metformin 500 MG tablet 1,000 mg PO BID RF: 0 glipizide 5 MG tablet extended release 24hr 10 mg PO DAILY RF: 0 lisinopril [Zestril] 5 MG tablet 10 mg PO DAILY RF: 0 aspirin 81 MG tablet,chewable 81 mg PO DAILY@0800 RF: 0 melatonin-pyridoxine HCl (B6) 1 EACH tablet 3 mg PO QHS RF: 0 atorvastatin 40 MG tablet 40 mg PO QHS RF: 0 metoprolol succinate 25 MG tablet extended release 24 hr 50 mg PO BID RF: 0 cholecalciferol (vitamin D3) 50 MCG capsule 2,000 unit PO DAILY RF: 0 magnesium oxide,aspartate,citr 400 MG capsule 400 mg PO DAILY RF: 0 Insulin Glargine,Hum.rec.anlog 22 units SC QHS RF: 0 hydrocodone-acetaminophen [hydrocodone-acetaminophen] 1 TABLET tablet 1 tab PO Q6H PRN PRN (Reason: Pain) 3 Days Qty: 10 RF: 0 cefazolin 1 gram Piggyback 6 g IV DAILY RF: 0 insulin aspart (niacinamide) 100 unit/mL (3 mL) Insulin Pen 8 unit SUBCUT TID RF: 0 lidocaine-elastic bandage 3 patch.wk BID RF: 0 rivaroxaban 20 mg Tablet 20 mg PO DAILY RF: 0 hydrocodone-acetaminophen [hydrocodone-acetaminophen] 1 TABLET tablet 1 tab PO Q6H PRN PRN (Reason: Pain) 3 Days Qty: 10 RF: 0 [facility] - Disposition Disposition: Home, Self Care Discharge Date/Time: 10/27/20 23:55
[2020-10-27] MEDS: Alteplase 2 MG/2 ML Vial IV (23:41)
== END 2020-10-27 23:55 | disposition home or self-care (01) ==
PROVIDERS: Emergency Provider Student in an Organized Health Care Education/Training Program
DX: T82.898A Other specified complication of vascular prosthetic devices, implants and grafts, initial encounter (principal); Z87.891 Personal history of nicotine dependence
CPT/HCPCS: 96374; 99282; J2997

== ENCOUNTER 2020-11-08 18:42 | Observation (INO) | payer OTHER, MEDICARE, SELFPAY ==
[2020-11-08] VITALS (10 sets, daily range): BP systolic 139–187; BP diastolic 86–96; PULSE 80–92; RESP 16–18; TEMP 36.3–36.8; O2SAT 96–99; BMI 26.2; BMI 25.9; BMI 24.9
[2020-11-08 19:20] LABS: Bedside Glucose 103 mg/dL (70-110)
--- NOTE | 2020-11-08 19:35 | EKG12_ITS ---
Test Reason : STROKE Blood Pressure : / mmHG Vent. Rate : 085 BPM Atrial Rate : 085 BPM P-R Int : 210 ms QRS Dur : 076 ms QT Int : 386 ms P-R-T Axes : 041 -26 063 degrees QTc Int : 459 ms Sinus rhythm with 1st degree A-V block Septal infarct , age undetermined Abnormal ECG Confirmed by BINDU RICE, SAMIA ([id number]), acquisition editor ELISABETH ANDERSON ([id number]) on 11/13/2020 12:56:17 PM Referred By: SOLANGE Confirmed By:SAMIA RUANO MD
--- NOTE | 2020-11-08 19:35 | CT_ITS ---
We are attempting to reach an attending provider to discuss findings. An addendum with communication details will be sent when the communication is complete. HISTORY: Neuro deficit, acute, stroke suspected TECHNIQUE: Multiple axial images were obtained of the brain without intravenous contrast. A radiation dose optimization technique was used for this scan. IV Contrast dosage and agent: None. COMPARISON: None FINDINGS: # of images incl. paperwork: [id number] PARANASAL SINUSES AND MASTOID AIR CELLS: Extensive right maxillary sinus mucoperiosteal disease. INTRACRANIAL HEMORRHAGE: None. BRAIN PARENCHYMA: No CT evidence of acute territorial infarction. No intracranial masses. There is preservation of the turk/white matter interface. Posterior fossa structures are unremarkable. There is hypoattenuation of the periventricular white matter. Chronic involutional changes are noted. CSF SPACES: Appropriate for age. There is no hydrocephalus. MASS EFFECT: None. CALVARIUM: No acute fracture. CT/STROKE Brain/Head without Cont IMPRESSION: Chronic involutional and white matter changes. No acute intracranial process. Individualized dose optimization techniques were used for this CT. at 2001 Reported and signed by: Jimenez Craig MD Electronically Signed: Jimenez Craig MD at 20:00 EDT Tel , Service support ,
--- NOTE | 2020-11-08 19:36 | EDS_ITS ---
HPI History of Present Illness Chief Complaint: Neuro S/Sx Informant: patient and spouse/S.O. Associated Symptoms Associated Symptoms: Positive for Headache; Negative for Nausea, Vomiting and Chest Pain Narrative Narrative: Patient took a nap 1530 this afternoon is when he went to sleep. Woke up around 1740 speaking abnormally according to . She states this did not last long, but he has been confused ever since. Had one episode similar to this about 2 weeks ago, he was seen in the ER at [facility], had an abnormal CT according to the , he was not admitted since and symptoms completely resolved. He is on no anticoagulants, just 81 aspirin. He has had no head injuries. He denies any chest symptoms. He has a right retro-orbital headache. He states he thinks he woke up with that. Denies any nausea or vomiting. Denies any peripheral neurologic symptoms at this time. Patient states that he has had a PICC in his left upper extremity for staphylococcal bacteremia from unknown source even though he has had chronic wounds on his right foot it tested negative, he just finished antibiotics for that and still has the PICC in place. [facility] Medical History Congestive heart failure (CHF) Diabetes Partial nontraumatic amputation of right foot TIA (transient ischemic attack) Home Medications lisinopril [Zestril] 10 mg PO DAILY 05/23/18 [History Last Taken 07/19/18] metformin 1,000 mg PO BID 05/23/18 [History Last Taken Unknown] Insulin Glargine,Hum.rec.anlog 22 units SC QHS 06/23/20 [History Last Taken Unknown] aspirin 81 mg PO DAILY@0800 06/23/20 [History Last Taken Unknown] atorvastatin 40 mg PO QHS 06/23/20 [History Last Taken Unknown] cholecalciferol (vitamin D3) 2,000 unit PO DAILY 06/23/20 [History Last Taken Unknown] melatonin-pyridoxine HCl (B6) 3 mg PO QHS 06/23/20 [History Last Taken Unknown] hydrocodone-acetaminophen 1 tab PO Q6H PRN PRN 3 Days #10 tablet 10/04/20 [Rx Last Taken Unknown] cefazolin 6 g IV DAILY 10/23/20 [History Last Taken Unknown] hydrocodone-acetaminophen 1 tab PO Q6H PRN PRN 3 Days #10 tablet 10/23/20 [Rx Last Taken Unknown] insulin aspart (niacinamide) 8 unit SUBCUT TID 10/23/20 [History Last Taken Unknown] lidocaine-elastic bandage 3 patch.wk BID 10/23/20 [History Last Taken Unknown] rivaroxaban 20 mg PO DAILY 10/23/20 [History Last Taken Unknown] cyclobenzaprine 5 mg PO QHS 11/08/20 [History Last Taken Unknown] gabapentin 300 mg PO BID 11/08/20 [History Last Taken Unknown] metoprolol tartrate 50 mg PO BID 11/08/20 [History Last Taken Unknown] Allergy/AdvReac Type Severity Reaction Status Date / Time No Known Allergies Allergy Verified 11/08/20 18:45 Surgical History Hx of CABG Social History Smoking Status: Former smoker ROS ROS ED Constitutional Constitutional ED: Denies chills or fever(s) Eyes Eyes: Denies change in vision or diplopia ENT ENT ED: Denies rhinorrhea or sore throat Cardiovascular Cardiovascular: Denies chest pain or palpitations Respiratory/Chest Respiratory/Chest: Denies cough or dyspnea Gastrointestinal Gastrointestinal: Denies abdominal pain, diarrhea, nausea or vomiting Genitourinary Genitourinary ED: Denies dysuria or hematuria Musculoskeletal Musculoskeletal: Denies back pain or neck pain Integumentary Denies abscess or rash Neurologic Neurologic: Reports as per HPI, abnormal speech, confusion and headache(s); Denies paresthesias or weakness Psychiatric Psychiatric: Denies anxiety or suicidal thoughts EXAM Physical Exam Const Vital Signs: 11/08/20 18:43 11/08/20 19:03 11/08/20 19:40 Temperature 97.3 F L Temperature Source Temporal Pulse Rate 81 80 86 Respiratory Rate 18 16 16 Blood Pressure 149/86 H 187/95 H 184/92 H Blood Pressure Mean 107 125 122 Pulse Ox 96 97 96 Oxygen Delivery Method Room Air Room Air Room Air 11/08/20 19:57 11/08/20 20:10 11/08/20 21:34 Temperature Temperature Source Pulse Rate 92 90 Respiratory Rate 16 17 Blood Pressure 139/89 H 163/86 H Blood Pressure Mean 105 111 Pulse Ox 96 99 98 Oxygen Delivery Method Room Air Room Air Room Air Positive well nourished and well developed General Appearance ED: well developed and NAD HEENT Reports moist mucous membranes normocephalic and atraumatic Eyes PERRL and EOMs intact bilaterally Neck full ROM and supple Resp normal respiratory effort and clear to auscultation bilaterally Cardio regular rate, regular rhythm and no murmurs GI non-tender and non-distended Auscultation: normoactive bowel sounds Palpation: soft Back/Spine no CVA tenderness General Back: other FROM Extremity normal to inspection General Extremety ED: Negative for edema, pulses abnormal or tenderness General Extremity: Negative for edema or pulses abnormal Neuro oriented x3, CN's II-XII intact bilaterally and no sensory deficits noted Sensorium / Orientation: awake and alert Motor Exam: strength 5/5 throughout Skin no rashes or lesions noted and no wounds STROKE Vital Signs/Narrative: Vital Signs Temp Pulse Resp BP Pulse Ox 11/08/20 21:34 90 17 163/86 H 98 11/08/20 20:10 92 16 139/89 H 99 11/08/20 19:57 96 11/08/20 19:40 86 16 184/92 H 96 11/08/20 19:03 80 16 187/95 H 97 11/08/20 18:43 97.3 F L 81 18 149/86 H 96 NIHSS Initial: 1a Level of Consciousness: 0 1b LOC Questions (Score 2 if aphasic/stupor): 0 1c LOC Commands (Only score 1st attempt): 0 2 Best Gaze (If aphasic, use reflexive mvmts.): 0 3 Visual: 0 4 Facial Palsy: 0 5 Motor Arm Right (UN = amputation/fusion): 0 5 Motor Arm Left: 0 6 Motor Leg Right: 0 6 Motor Leg Left: 0 7 Limb ataxia (Only + if out of proportion): 0 8 Sensory (Aphasia/stupor=0 or 1, coma=2): 0 9 Best Language: 1 10 Dysarthria (mute, coma=2, intubated=UN): 0 11 Extinction and Inattention (only scored if +): 0 Total Score: 1 MDM MDM MDM Narrative Medical decision making narrative: After I evaluated the patient, given that the patient was at approximately the 4-hour chloe, stroke team was called, however since the patient is taking Xarelto and last took it yesterday, he is not an IV TPA candidate. Certainly a TIA/stroke is in the differential here as his complex migraine, subclinical seizure. CT angiography was performed simultaneous with plain CT of the head, it does not show an LVO, discussed with Dr. Bennett with [facility] stroke neurology who agreed that the patient is not an IV TPA candidate and that they would accept the patient in transfer if an LVO was found which it was not. 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 I discussed these findings with him, he agrees that the patient does not need an emergent vascular surgery consultation and may be safely admitted at our primary stroke facility for further work-up. Lab Data Attestation: I reviewed the patient's lab results. Labs: Laboratory Results - last 24 hr 11/08/20 11/08/20 11/08/20 19:02 19:20 19:20 WBC 12.1 H RBC 3.81 L Hgb 10.1 L Hct 32.7 L MCV 85.8 MCH 26.5 L MCHC 30.9 L RDW Std Deviation 45.2 H RDW Coeff of Fernando 14.5 Plt Count 389 MPV 9.4 Immature Gran % (Auto) 0.300 Neut % (Auto) 70.3 H Lymph % (Auto) 20.4 Zavala % (Auto) 6.8 Eos % (Auto) 1.6 Baso % (Auto) 0.6 Absolute Neuts (auto) 8.5 H Absolute Lymphs (auto) 2.46 Nucleated RBC % 0 PT 17.8 H INR 1.5 APTT 41.7 H Sodium Potassium Chloride Carbon Dioxide Anion Gap BUN Creatinine Estim Creat Clear Calc Est GFR (MDRD) Af Amer Est GFR (MDRD) Non-Af BUN/Creatinine Ratio Glucose Calcium Troponin I High Sens Urine Color Urine Clarity Urine pH Ur Specific [place] Urine Protein Urine Glucose (UA) Urine Ketones Urine Occult Blood Urine Nitrite Urine Bilirubin Urine Urobilinogen Ur Leukocyte Esterase Urine RBC Urine WBC Ur Squamous Epith Cells Urine Bacteria Urine Mucus POC Glucose 103 11/08/20 11/08/20 19:20 20:18 WBC RBC Hgb Hct MCV MCH MCHC RDW Std Deviation RDW Coeff of Fernando Plt Count MPV Immature Gran % (Auto) Neut % (Auto) Lymph % (Auto) Zavala % (Auto) Eos % (Auto) Baso % (Auto) Absolute Neuts (auto) Absolute Lymphs (auto) Nucleated RBC % PT INR APTT Sodium 136 Potassium 4.0 Chloride 105 Carbon Dioxide 27.0 Anion Gap 4 L BUN 15 Creatinine 0.94 Estim Creat Clear Calc 69.99 Est GFR (MDRD) Af Amer 101 Est GFR (MDRD) Non-Af 83 BUN/Creatinine Ratio 15.9 Glucose 102 Calcium 8.5 Troponin I High Sens 17.9 Urine Color Yellow Urine Clarity Clear Urine pH 7.0 Ur Specific [place] 1.005 Urine Protein 100 H Urine Glucose (UA) 250 H Urine Ketones Negative Urine Occult Blood 250 H Urine Nitrite Negative Urine Bilirubin Negative Urine Urobilinogen Normal Ur Leukocyte Esterase Negative Urine RBC 25-50 SEEN Urine WBC 0-5 SEEN Ur Squamous Epith Cells 0 SEEN Urine Bacteria 0 SEEN Urine Mucus 0 SEEN POC Glucose Radiography Diagnostic Testing: Radiology Impression Brain CT 11/08/20 19:35 IMPRESSION: Chronic involutional and white matter changes. No acute intracranial process. Individualized dose optimization techniques were used for this CT. at 2001 Reported and signed by: Jimenez Craig MD Electronically Signed: Jimenez Craig MD at 20:00 EDT Tel , Service support , ADDENDUM: 11/08/202013 IMPRESSION: Chronic involutional and white matter changes. No acute intracranial process. Individualized dose optimization techniques were used for this CT. at 2000 Reported and signed by: Jimenez Craig MD N.B. : The above Results were Read Back by Jimenez Craig MD to Jono Boyer MD, MD, and understanding confirmed on 11/08/2020 20:07:26 (ET). Electronically Signed: Jimenez Craig MD at 20:00 EDT Tel , Service support , Head/Neck CTA 11/08/20 19:36 IMPRESSION: Limited visualization of the proximal internal carotid arteries due to motion. Stenosis cannot be excluded. Atherosclerotic calcifications at the carotid bulbs, right more than left.. Nonvisualization of the proximal segment of the right posterior cerebral artery. N.B. : The above Results were Read Back by Rosas Sullivan DO to Jono Boyer MD, , and understanding confirmed on 11/08/2020 20:35:24 (ET). Electronically Signed: Rosas Sullivan DO at 20:36 EDT Tel [phone], Service support , ADDENDUM: 11/08/202042 IMPRESSION: Limited visualization of the proximal internal carotid arteries due to motion. Stenosis cannot be excluded. Atherosclerotic calcifications at the carotid bulbs, right more than left.. Nonvisualization of the proximal segment of the right posterior cerebral artery. N.B. : The above Results were Read Back by Rosas Sullivan DO to Jono Boyer MD, , and understanding confirmed on 11/08/2020 20:35:24 (ET). Electronically Signed: Rosas Sullivan DO at 20:36 EDT Tel [phone], Service support , EKG Initial EKG: Attestation: I personally reviewed and interpreted this EKG as follows: Interpretation: Sinus Rhythm, No Acute Injury Pattern and AV Block (1st deg) Prior EKG tracings: available for review Prior: Unchanged (Difficult to assess presence of first degree AVB due to tachycardia on prior EKG) Stroke Documentation Questions Stroke Team Activated: Yes Was Patient considered for Endovascular Intervention?: No (No LVO found) IV Alteplase (t-PA) Administered: No (outside of time window) Critical Care Time Critical Care Time: Yes Critical care time (excluding procedures): 30-74 minutes (32 min), Including time spent:, Discussing w/Patient &/or Family/Imagery Intelligence, Discussing w/Consultants, Arranging Admission or Transfer and Performing Direct Patient Care at Bedside Discharge Plan Dx/Rx/DC Orders Clinical Impression: Expressive aphasia Disposition Disposition: Acute Care Hospital [facility]
--- NOTE | 2020-11-08 19:36 | CT_ITS ---
STUDY: CTA HEAD AND NECK WITH CONTRAST REASON FOR EXAM: Male, 75 years old. Neuro deficit, acute, stroke suspected RADIATION DOSAGE (If Supplied By Facility): CTDIvol = ( 41.05 ) mGy, DLP = ( 1092.22 ) mGycm TECHNIQUE: CT angiography was performed with a multi-detector CT scanner. Data acquisition was obtained from the skull base through the vertex following intravenous administration of IV 100ML ISOVUE 370. MIP images were reconstructed from the axial data set. Post-processing of the angiographic images was performed, with multiplanar reformation and 3D reconstruction. Individualized dose optimization techniques were used for this CT. COMPARISON: No relevant priors. FINDINGS: Normal bilateral petrous carotid arteries. Calcified right cavernous carotid artery with a normal supraclinoid bifurcation. Calcified left cavernous carotid artery with a normal supraclinoid bifurcation. Normal right A1 segments of the anterior cerebral artery. Normal left A1 segments of the anterior cerebral artery. Normal intact anterior communicating artery (ACOM). Normal bilateral A2 segments of the anterior cerebral arteries. Normal right M1 and M2 segments of the middle cerebral arteries, with a normal M1 bifurcation. Normal left M1 and M2 segments of the middle cerebral arteries, with a normal M1 bifurcation. Normal right posterior communicating artery (PCOM). Nonvisualization of the left posterior communicating artery (PCOM). Calcifications of the bilateral vertebral arteries with mild luminal narrowing. Normal basilar artery. The visualized bilateral superior cerebellar (SCA) arteries are normal. Normal left posterior cerebral artery. Nonvisualization of the proximal segment of the right posterior cerebral artery. There is no demonstrated aneurysm of the tunica-biloxi of [place]. There is no demonstrated abnormality of the visualized brain. AORTIC ARCH: Mildly calcified aortic arch. Normal origins of the brachiocephalic, left common carotid, and left subclavian arteries. RIGHT CAROTID ARTERIES: Normal right common carotid artery (CCA). Calcifications at the right common carotid bulb with approximately 50% luminal narrowing. Limited visualization of the proximal right internal carotid (ICA) artery due to motion. Mild to moderate stenosis is suspected at the Normal origin of the right external carotid artery (ECA). LEFT CAROTID ARTERIES: Normal left common carotid artery (CCA). Mild calcifications at the left common carotid bulb. Limited visualization of the proximal left internal carotid (ICA) artery due to motion. Moderate stenosis cannot be excluded. Normal origin of the left external carotid artery (ECA). VERTEBRAL ARTERIES: Normal right vertebral artery. Calcification at the origin of the left vertebral artery with mild luminal narrowing. CT/STROKE CTA Head AND Neck W/Con IMPRESSION: Limited visualization of the proximal internal carotid arteries due to motion. Stenosis cannot be excluded. Atherosclerotic calcifications at the carotid bulbs, right more than left.. Nonvisualization of the proximal segment of the right posterior cerebral artery. N.B. : The above Results were Read Back by Rosas Sullivan DO to Jono Boyer MD, MD, and understanding confirmed on 11/08/2020 20:35:24 (ET). Electronically Signed: Rosas Sullivan DO at 20:36 EDT Tel [phone], Service support ,
--- NOTE | 2020-11-08 19:50 | CM.ED ---
SOCIAL WORK Stroke Alert Responded to Stroke Alert. Patient in CT. Daughter/HPOA in room. Introduced role and reason for referral. Daughter states patient has been in and out of hospitals for several months. Patient is currently living with daughter. D[facility] Daughter reports patient with history of depression. Emotional support and active listening provided. This worker to remain available for needs. Vee Moreno, SET UP / OPERATOR, LINE INSTALLER REPAIRER
[2020-11-08 19:51] LABS: Absolute Lymphocyte Count 2.46 X10^3/uL (0.83-4.51); Absolute Neutrophil Count 8.5 X10^3/uL (2.0-7.7); Basophil# 0.07 X10^3/uL; Basophil% 0.6 % (0-1); Eosinophil# 0.19 X10^3/uL; Eosinophils% 1.6 % (0-5); Hematocrit 32.7 % (40-54); Hemoglobin 10.1 g/dL (13.0-16.5); Lymphocyte # 2.46 X10^3/ul (0.83-4.51); Lymphocyte % 20.4 % (19-41); Mean Corp Hgb Conc 30.9 g/dL (32-36); Mean Corpuscular Hgb 26.5 pg (27.0-32.0); Mean Corpuscular Volume 85.8 fL (80-94); Mean Platelet Vol. 9.4 fl (6.2-12.0); Monocyte# 0.82 X10^3/uL; Monocyte% 6.8 % (0-10); NRBC Flagged by Analyzer 0 % (0-5); Neutrophil # 8.47 X10^3/uL (2.7-7.7); Neutrophil % 70.3 % (47-70); Platelet Count 389 K/mm3 (150-450); RBC Distribution Width CV 14.5 % (11.6-14.6); RBC Distribution Width SD 45.2 fl (35.1-43.9); Red Blood Count 3.81 M/mm3 (4.6-6.2); White Blood Count 12.1 K/mm3 (4.4-11.0)
[2020-11-08 20:05] LABS: International Normalized Ratio 1.5; Partial Thromboplast Time 41.7 Seconds (24.1-36.2); Prothrombin Time (Protime)PT. 17.8 SECONDS (11.7-14.9)
[2020-11-08 20:09] LABS: Anion Gap 4 (5-15); BUN 15 mg/dL (7-18); BUN/Creat Ratio 15.9 RATIO (10-20); Calcium,Total 8.5 mg/dL (8.5-10.1); Chloride 105 mmol/L (98-107); Creatinine, Serum 0.94 mg/dL (0.70-1.30); EST Glomerular Filtration Rate 83 mL/min (>60); Est Glom Filt Rate - Afr Amer 101 mL/min (>60); Estimated Creatinine Clearance 69.99 ml/min; Glucose 102 mg/dL (74-106); Sodium Level 136 mmol/L (136-145); Troponin-I HS 17.9 pg/mL (3.0-78.5)
--- NOTE | 2020-11-08 20:32 | RAD_ITS ---
STUDY: X-RAY CHEST REASON FOR EXAM: Male, 75 years old. Neuro deficit, acute, stroke suspected TECHNIQUE: Frontal view COMPARISON: 10/23/2020. FINDINGS: Stable sternotomy wires. Stable left PICC line. The lungs are clear and expanded. There is no demonstrated pleural abnormality. Normal size heart. Normal mediastinum and ibeth. Normal visualized pulmonary arteries. Normal visualized aortic arch and descending thoracic aorta. Degenerative changes of the thoracic spine. Normal visualized ribs, clavicles, and shoulders. There is no demonstrated abnormality of the visualized soft tissue structures of the upper abdomen. RAD/Chest 1 View IMPRESSION: Normal x-ray examination of the chest. Electronically Signed: Rosas Sullivan DO at 22:43 EDT Tel [phone], Service support ,
[2020-11-08 20:43] LABS: Bacteria 0 SEEN /hpf (None Seen); Mucous, Urine 0 SEEN /hpf (<or=2+); Squamous Epithelial Cells - UA 0 SEEN /hpf (0-5)
[2020-11-08 20:49] LABS: Color, Urine Yellow (Yellow); Glucose, Dipstick 250 mg/dl (Normal); Ketone-Dipstick Negative (Negative); Leukocyte Esterase-Dipstick Negative /ul (Negative); Nitrite-Dipstick Negative (Negative); Occult Blood-Urine 250 /ul (Negative); Protein-Dipstick 100 mg/dl (Negative); Specific Gravity, Urine 1.005 (1.002-1.030); Urine Bilirubin Dipstick Negative (Negative); Urine Clarity Clear (Clear); Urine Urobilinogen Normal (Normal)
[2020-11-08 20:57] LABS: Red Blood Cells-Urine 25-50 SEEN /hpf (0-5); White Blood Cells 0-5 SEEN /hpf (0-5)
--- NOTE | 2020-11-08 22:00 | HP.PCM_ITS ---
Documented by User: ABDIRIZAK Castellon 11/08/20 22:26 HPI - General General Date of Admission: 11/08/20 Date of Service: 11/08/20 Chief Complaint: Slurred speech HPI Narrative SALLY KELSEY, is a 75 M who presents with slurred speech, confusion and ataxia. Patient's daughter reports that he woke up from a nap and was unable to work find, had slurred speech and was stumbling when ambulating to the bathroom. Patient's daughter reports that symptoms lasted approximately 10 minutes before she saw improvement however the confusion lasted for approximately half an hour. Patient complains of headache 6 out of 10 reports that he took Tylenol prior to arrival at the ER. Patient reports that he had similar symptoms approximately 2 weeks ago and presented to [facility] ER where he was told that he had an abnormal CT and was sent home. PENDING SALE TO [facility] Medical History (Updated 11/08/20 @ 22:13 by OMAR CastellonC) Congestive heart failure (CHF) Partial nontraumatic amputation of right foot TIA (transient ischemic attack) Home Medications lisinopril [Zestril] 10 mg PO DAILY 05/23/18 [History Last Taken 07/19/18] metformin 1,000 mg PO BID 05/23/18 [History Last Taken Unknown] Insulin Glargine,Hum.rec.anlog 22 units SC QHS 06/23/20 [History Last Taken Unknown] aspirin 81 mg PO DAILY@0800 06/23/20 [History Last Taken Unknown] atorvastatin 40 mg PO QHS 06/23/20 [History Last Taken Unknown] cholecalciferol (vitamin D3) 2,000 unit PO DAILY 06/23/20 [History Last Taken Unknown] melatonin-pyridoxine HCl (B6) 3 mg PO QHS 06/23/20 [History Last Taken Unknown] hydrocodone-acetaminophen 1 tab PO Q6H PRN PRN 3 Days #10 tablet 10/04/20 [Rx Last Taken Unknown] cefazolin 6 g IV DAILY 10/23/20 [History Last Taken Unknown] hydrocodone-acetaminophen 1 tab PO Q6H PRN PRN 3 Days #10 tablet 10/23/20 [Rx Last Taken Unknown] insulin aspart (niacinamide) 8 unit SUBCUT TID 10/23/20 [History Last Taken Un known] lidocaine-elastic bandage 3 patch.wk BID 10/23/20 [History Last Taken Unknown] rivaroxaban 20 mg PO DAILY 10/23/20 [History Last Taken Unknown] cyclobenzaprine 5 mg PO QHS 11/08/20 [History Last Taken Unknown] gabapentin 300 mg PO BID 11/08/20 [History Last Taken Unknown] metoprolol tartrate 50 mg PO BID 11/08/20 [History Last Taken Unknown] Allergy/AdvReac Type Severity Reaction Status Date / Time No Known Allergies Allergy Verified 11/08/20 22:51 Family History (Updated 11/08/20 @ 22:38 by OMAR CastellonC) Mother Diabetes Father COPD (chronic obstructive pulmonary disease) Surgical History Hx of CABG Social History Smoking Status: Former smoker ROS Constitutional Constitutional: Denies anorexia, chills, fatigue, fever(s) or malaise Cardiovascular Cardiovascular: Denies chest pain, edema or palpitations Respiratory/Chest Respiratory/Chest: Denies cough, shortness of breath at rest or shortness of breath with exertion Gastrointestinal Gastrointestinal: Denies abdominal pain, constipation, diarrhea, nausea or vomiting Genitourinary Genitourinary: Denies dysuria Musculoskeletal Musculoskeletal: Denies back pain, extremity pain, joint pain or joint stiffness Integumentary Integumentary: Denies dry skin Neurologic Neurologic: Reports abnormal gait, abnormal speech and confusion Psychiatric Psychiatric: Reports anxiety and depression Endocrine Endocrinology: Reports change in body appearance Hematologic/Lymphatic Hematologic/Lymphatic: Reports easy bleeding and easy bruising Vital Signs Vital Signs Vital Signs: 11/08/20 18:43 11/08/20 19:03 11/08/20 19:40 Temperature 97.3 F L Temperature Source Temporal Pulse Rate 81 80 86 Respiratory Rate 18 16 16 Blood Pressure 149/86 H 187/95 H 184/92 H Blood Pressure Mean 107 125 122 Pulse Ox 96 97 96 Oxygen Delivery Method Room Air Room Air Room Air 11/08/20 19:57 11/08/20 20:10 11/08/20 21:34 Temperature Temperature Source Pulse Rate 92 90 Respiratory Rate 16 17 Blood Pressure 139/89 H 163/86 H Blood Pressure Mean 105 111 Pulse Ox 96 99 98 Oxygen Delivery Method Room Air Room Air Room Air Weight Weight: 175 lb 7.807 oz Body Mass Index (BMI) 25.9 Physical Exam Const alert and oriented x3 General Appearance: cooperative HEENT normocephalic and head/scalp atraumatic Eyes conjunctivae normal and no scleral icterus Neck supple and no JVD General: trachea midline Resp normal respiratory effort, normal air movement and clear to auscultation bilaterally Cardio regular rate, regular rhythm, S1 normal heart sound and S2 normal heart sound GI normal to inspection, nondistended, normoactive bowel sounds, soft to palpation and non-tender Extremity normal capillary refill and no clubbing, cyanosis or edema General Extremity: no tenderness to palpation of joints or extremities Right Lower Extremity: foot and digits Positive for other (Transmetatarsal amputation) Skin Skin Narrative: Multiple ulcers to left lower extremity General Skin Exam: turgor normal Lesions: no lesions Rashes: no rashes Wounds: wounds noted Neuro Sensorium / Orientation: awake and alert Speech: speech abnormal Details: Positive for stuttering Gait (Neuro): assistive device used walker Motor Exam: general weakness Psych thought process normal and affect normal Appearance: appropriate Attitude: agitated Results Lab / Micro Data Result Diagrams: 11/08/20 19:20 11/08/20 19:20 Labs: Laboratory Results - last 24 hr 11/08/20 11/08/20 11/08/20 19:02 19:20 19:20 WBC 12.1 H RBC 3.81 L Hgb 10.1 L Hct 32.7 L MCV 85.8 MCH 26.5 L MCHC 30.9 L RDW Std Deviation 45.2 H RDW Coeff of Fernando 14.5 Plt Count 389 MPV 9.4 Immature Gran % (Auto) 0.300 Neut % (Auto) 70.3 H Lymph % (Auto) 20.4 [place] % (Auto) 6.8 Eos % (Auto) 1.6 Baso % (Auto) 0.6 Absolute Neuts (auto) 8.5 H Absolute Lymphs (auto) 2.46 Nucleated RBC % 0 PT 17.8 H INR 1.5 APTT 41.7 H Sodium Potassium Chloride Carbon Dioxide Anion Gap BUN Creatinine Estim Creat Clear Calc Est GFR (MDRD) Af Amer Est GFR (MDRD) Non-Af BUN/Creatinine Ratio Glucose Calcium Troponin I High Sens Urine Color Urine Clarity Urine pH Ur Specific [place] Urine Protein Urine Glucose (UA) Urine Ketones Urine Occult Blood Urine Nitrite Urine Bilirubin Urine Urobilinogen Ur Leukocyte Esterase Urine RBC Urine WBC Ur Squamous Epith Cells Urine Bacteria Urine Mucus POC Glucose 103 11/08/20 11/08/20 19:20 20:18 WBC RBC Hgb Hct MCV MCH MCHC RDW Std Deviation RDW Coeff of Fernando Plt Count MPV Immature Gran % (Auto) Neut % (Auto) Lymph % (Auto) [place] % (Auto) Eos % (Auto) Baso % (Auto) Absolute Neuts (auto) Absolute Lymphs (auto) Nucleated RBC % PT INR APTT Sodium 136 Potassium 4.0 Chloride 105 Carbon Dioxide 27.0 Anion Gap 4 L BUN 15 Creatinine 0.94 Estim Creat Clear Calc 69.99 Est GFR (MDRD) Af Amer 101 Est GFR (MDRD) Non-Af 83 BUN/Creatinine Ratio 15.9 Glucose 102 Calcium 8.5 Troponin I High Sens 17.9 Urine Color Yellow Urine Clarity Clear Urine pH 7.0 Ur Specific [place] 1.005 Urine Protein 100 H Urine Glucose (UA) 250 H Urine Ketones Negative Urine Occult Blood 250 H Urine Nitrite Negative Urine Bilirubin Negative Urine Urobilinogen Normal Ur Leukocyte Esterase Negative Urine RBC 25-50 SEEN Urine WBC 0-5 SEEN Ur Squamous Epith Cells 0 SEEN Urine Bacteria 0 SEEN Urine Mucus 0 SEEN POC Glucose Radiology Impression Brain CT 11/08/20 19:35 IMPRESSION: Chronic involutional and white matter changes. No acute intracranial process. Individualized dose optimization techniques were used for this CT. at 2000 Reported and signed by: Jimenez Craig MD Electronically Signed: Jimenez Craig MD at 20:00 EDT Tel , Service support , ADDENDUM: 11/08/202013 IMPRESSION: Chronic involutional and white matter changes. No acute intracranial process. Individualized dose optimization techniques were used for this CT. at 2000 Reported and signed by: Jimenez Craig MD N.B. : The above Results were Read Back by Jimenez Craig MD to Jono Boyer MD, , and understanding confirmed on 11/08/2020 20:07:26 (ET). Electronically Signed: Jimenez Craig MD at 20:00 EDT Tel , Service support , Head/Neck CTA 11/08/20 19:36 IMPRESSION: Limited visualization of the proximal internal carotid arteries due to motion. Stenosis cannot be excluded. Atherosclerotic calcifications at the carotid bulbs, right more than left.. Nonvisualization of the proximal segment of the right posterior cerebral artery. N.B. : The above Results were Read Back by Rosas Sullivan DO to Jono Boyer MD, , and understanding confirmed on 11/08/2020 20:35:24 (ET). Electronically Signed: Rosas Sullivan DO at 20:36 EDT Tel [phone], Service support , ADDENDUM: 11/08/20 2043 IMPRESSION: Limited visualization of the proximal internal carotid arteries due to motion. Stenosis cannot be excluded. Atherosclerotic calcifications at the carotid bulbs, right more than left.. Nonvisualization of the proximal segment of the right posterior cerebral artery. N.B. : The above Results were Read Back by Rosas Sullivan DO to Jono Boyer MD, , and understanding confirmed on 11/08/2020 20:35:24 (ET). Electronically Signed: Rosas Sullivan DO at 20:36 EDT Tel [phone], Service support , Assessment & Plan Assessment/Plan (1) TIA (transient ischemic attack): PLAN: 1. TIA -Admit to progressive care for cardiac monitoring and NIH stroke scale evaluation -MRI ordered for the morning -Due to CT findings of questionable blockage in carotids we will order carotid ultrasound -Echocardiogram ordered for a.m. -Every 4 hours vital signs with NIH stroke scale monitoring -PT, OT, ST to eval and treat -Vital signs per protocol -CBC, BMP, lipid panel ordered for a.m. -Consult case management for discharge planning 2. Essential hypertension -Continue home medication regimen including lisinopril, metoprolol. -As needed hydralazine and labetalol ordered -Vital signs per protocol, trend BP 3. Hyperlipidemia -Continue atorvastatin -Lipid panel ordered for a.m. 4. Diabetes mellitus type 2 -We will hold Metformin due to use of contrast with CT -AC at bedtime blood sugars with sliding scale insulin ordered 5. Obstructive sleep apnea -Patient does not wear CPAP at home, noncompliant DVT prophylaxis-SCDs This patient was seen by ABDIRIZAK Castellon under the supervision of Dr. Montanez. Documented by User: Dr. Cameron Montanez MD 11/08/20 23:09 HPI - General General Date of Admission: 11/08/20 PENDING SALE TO [facility] Medical History (Updated 11/08/20 @ 22:13 by OMAR CastellonC) Congestive heart failure (CHF) Partial nontraumatic amputation of right foot TIA (transient ischemic attack) Home Medications lisinopril [Zestril] 10 mg PO DAILY 05/23/18 [History Last Taken 07/19/18] metformin 1,000 mg PO BID 05/23/18 [History Last Taken Unknown] Insulin Glargine,Hum.rec.anlog 22 units SC QHS 06/23/20 [History Last Taken Unknown] aspirin 81 mg PO DAILY@0800 06/23/20 [History Last Taken Unknown] atorvastatin 40 mg PO QHS 06/23/20 [History Last Taken Unknown] cholecalciferol (vitamin D3) 2,000 unit PO DAILY 06/23/20 [History Last Taken Unknown] melatonin-pyridoxine HCl (B6) 3 mg PO QHS 06/23/20 [History Last Taken Unknown] hydrocodone-acetaminophen 1 tab PO Q6H PRN PRN 3 Days #10 tablet 10/04/20 [Rx Last Taken Unknown] cefazolin 6 g IV DAILY 10/23/20 [History Last Taken Unknown] hydrocodone-acetaminophen 1 tab PO Q6H PRN PRN 3 Days #10 tablet 10/23/20 [Rx Last Taken Unknown] insulin aspart (niacinamide) 8 unit SUBCUT TID 10/23/20 [History Last Taken Unknown] lidocaine-elastic bandage 3 patch.wk BID 10/23/20 [History Last Taken Unknown] rivaroxaban 20 mg PO DAILY 10/23/20 [History Last Taken Unknown] cyclobenzaprine 5 mg PO QHS 11/08/20 [History Last Taken Unknown] gabapentin 300 mg PO BID 11/08/20 [History Last Taken Unknown] metoprolol tartrate 50 mg PO BID 11/08/20 [History Last Taken Unknown] Allergy/AdvReac Type Severity Reaction Status Date / Time No Known Allergies Allergy Verified 11/08/20 22:51 Family History (Updated 11/08/20 @ 22:38 by ABDIRIZAK Castellon) Mother Diabetes Father COPD (chronic obstructive pulmonary disease) Surgical History Hx of CABG Social History Smoking Status: Former smoker Results Lab / Micro Data Result Diagrams: 11/08/20 19:20 11/08/20 19:20 Charges/Coding Addendum Addendum: Patient was seen and examined independently. I agree with assessment and plan by ABDIRIZAK Castellon In summary patient is 75-year-old male with a significant history of multiple strokes; hypertension; hyperlipidemia; diabetes mellitus and obstructive sleep apnea who presents emergency department with aphasia after waking up from his sleep. Associated with symptom is confusion. Per family his symptoms resolved. However Emergency department doctor reported that on examination patient still had some mild expressive aphasia. Further patient had difficulty identifying objects at the emergency department. Stroke alert was called at the emergency department. Per family patient was at [facility] for unrelated issue when he had expressive aphasia. Reportedly he had a CT imaging that showed a history of multiple strokes. Physical exam: General: Well-nourished, well-developed, no acute distress Head: Normocephalic, atraumatic, no tenderness Eyes: PERRLA, EOMI ENT, no trauma, moist mucous membranes, no rhinorrhea Neck: Nontender, full range of motion, no spinal tenderness, deformities, step- off CVS: Regular rate and rhythm Respiratory no acute distress, clear to auscultation bilaterally, chest wall nontender, no wheezing Abdomen: Soft, nontender, nondistended, normal bowel sounds, no masses : Deferred Extremities: Right transmetatarsal amputation. Ulcer of right foot. Eschar at lateral side of left foot. Skin: Normal color, no trauma, abrasions Neuro: Alert, oriented, cranial nerves II through XII grossly intact; except mild aphasia. No dysmetria with [id number] test and [id number] test. Deep tendon reflexes of knee reflex and biceps reflex without hyperreflexia. Psychiatry: Impulsive. Assessment and plan Strokelike symptoms Serial NIH is ordered. CT of the head: Per radiologist chronic involutional and white matter changes. No acute intracranial process. Actual CT image was independently interpreted and I agree with radiologist interpretation. Radiologist impression of head/neck CTA: Limited visualization of the proximal internal carotid arteries due to motion. Stenosis cannot be excluded. Atherosclerotic calcifications at the carotid bulbs, right more than left.. Nonvisualization of the proximal segment of the right posterior cerebral artery. Per discussion between emergent department doctor and telemetry neurologist ultrasound of carotid was recommended. Ultrasound of of carotid ordered. Physical therapy, occupational therapy and speech therapy to work with patient. N.p.o. until bedside swallow eval. Daily aspirin continued. High intensity statin continued Lipid profile and A1c ordered. Permissive hypertension. Control blood pressure with labetalol for systolic blood pressure of more than 220 or diastolic blood pressure of more than 120. MRI of brain ordered Echocardiogram ordered. Hypertension Blood pressure is not within goal All home blood pressure medication held secondary to permissive hypertension. Trend blood pressure and adjust blood pressure medications. Diabetes mellitus Patient with euglycemia on presentation Hold home hypoglycemic regimen. Accu-Chek QA [facility] with correction scale insulin ordered. History of atrial flutter Patient in sinus rhythm on presentation. Metoprolol held secondary to permissive hypertension. Xarelto continued. Chronic wounds: Apply Kerlix roll to bilateral feet. DVT prophylaxis: Xarelto continued. Visit Charges OBSV E&M: 02252 Initial observation care L3
[2020-11-08 22:30] LABS: Troponin-I HS 18.4 pg/mL (3.0-78.5)
--- NOTE | 2020-11-08 22:34 | MRI_ITS ---
STUDY: MRI BRAIN WITHOUT CONTRAST REASON FOR EXAM: Male, 75 years old. TIA, CONFUSION TECHNIQUE: Standardized multiplanar fat and water weighted pulse sequences were obtained. COMPARISON: 11/08/2020 CT of the head FINDINGS: There is mild cerebral atrophy with widening of the extra-axial spaces and ventricular dilatation. There are multiple white matter hyperintensities, distributed throughout the deep white matter tracts of the cerebral hemispheres, consistent with moderate chronic white matter ischemic changes. Normal bilateral basal ganglia. Normal thalami. There is no extra-axial fluid accumulation. Normal flow voids within the major intracranial circulation suggesting patency by spin echo criteria. Normal sella turcica, pituitary gland, infundibular stalk, optic chiasm and hypothalamus. Normal tectal plate and pineal gland. There are chronic white matter ischemic changes of the anel. The midbrain and medulla are otherwise normal. Normal cerebellum. MRI/Brain without Contrast IMPRESSION: No acute intracranial abnormality. Moderate chronic microvascular ischemic changes. Electronically Signed: Joycelyn Saldivar MD at 11:24 EDT Tel , Service support ,
--- NOTE | 2020-11-08 23:00 | ECHOCS_ITS ---
Reason For Study: TIA/CVA Procedure This was a 2D Doppler, Color Flow transthoracic echocardiogram. The study was technically difficult. Due to body habitus. Contrast injection was performed. Exam performed portable in patient room. Left Ventricle Moderately dilated left ventricle. all size Echogenic mass in LV/LV thrombus. Right Ventricle Normal right ventricle. Normal systolic function. Atria Normal left atrium. Normal right atrium. Mitral Valve The mitral valve is structurally normal. No prolapse or stenosis seen. Trivial mitral valve insufficiency. Tricuspid Valve Normal tricuspid valve. Mild tricuspid valve insufficiency. Aortic Valve Normal aortic valve. Pulmonic Valve The pulmonic valve is not well visualized. Great Vessels Normal aortic root. Pericardium/Pleural No pericardial effusion. Medication Diluted definity 2.0ml given slow IV push to enhance endocardial definition. MMode/2D Measurements & Calculations LVIDd: 4.6 cm IVSd: 0.94 cm Ao root diam: 3.7 cm LVIDs: 3.4 cm LVPWd: 0.93 cm RVDd: 2.8 cm FS: 27.4 % LAV(MOD-bp): 39.0 ml LVAd ap4: 39.3 cm2 LVAd ap2: 33.9 cm2 LAV(MOD-bp) Indexed: 20.0 ml/m2 LVLd ap4: 9.1 cm LVLd ap2: 9.8 cm LAV(MOD-sp2): 42.8 ml EDV(MOD-sp4): 141.2 ml EDV(MOD-sp2): 95.0 ml LAV(MOD-sp4): 36.2 ml EDV(sp4-el): 145.0 ml EDV(sp2-el): 99.0 ml LVAs ap4: 25.3 cm2 LVAs ap2: 21.1 cm2 LVLs ap4: 7.5 cm LVLs ap2: 8.0 cm ESV(MOD-sp4): 71.2 ml ESV(MOD-sp2): 45.3 ml ESV(sp4-el): 72.6 ml ESV(sp2-el): 47.1 ml EF(MOD-sp4): 49.5 % EF(MOD-sp2): 52.3 % EF(sp4-el): 49.9 % SV(MOD-sp4): 69.9 ml SV(MOD-sp2): 49.7 ml SV(sp4-el): 72.4 ml LA A4 area: 14.0 cm2 LA dimension(2D): 3.3 cm RA A4 area: 10.7 cm2 Doppler Measurements & Calculations MV E max chance: 57.8 cm/sec Lat Peak E' Chance: 6.6 cm/sec Med Peak E' Chance: 5.1 cm/sec MV A max chance: 70.1 cm/sec E/E' lat: 8.7 E/E' med: 11.3 MV E/A: 0.82 Ao V2 max: 95.3 cm/sec LV V1 max: 84.1 cm/sec PA V2 max: 93.7 cm/sec Ao max P.6 mmHg LV V1 max P.8 mmHg ECHO/Echo Complete W/ Contrast Interpretation Summary small size Echogenic mass in LV/LV thrombus Anteroseptal and Apical Hypokinesia Mild LV systolic Dysfunction EF 45-50% Ordering Physician: Christy Weber Referring Physician: Performed By: Corin Tobin, PAVAN, RVT
[2020-11-08] MEDS: 0.9% Saline Lock 10 ML Syringe IV (23:46)
[2020-11-08] MEDS: Gabapentin 300 MG Capsule PO (23:46)
[2020-11-08] MEDS: 0.9% Normal Saline 1,000 ML 100 ML IV (23:46)
[2020-11-08] MEDS: Acetaminophen 325 MG Tablet 650 MG PO (23:46)
[2020-11-08] MEDS: cycloBENZAPRine HCl 5 MG TABLET PO (23:46)
[2020-11-08] MEDS: Atorvastatin Calcium 40 MG Tablet PO (23:46)
[2020-11-09] VITALS (8 sets, daily range): BP systolic 112–168; BP diastolic 48–84; PULSE 72–93; RESP 16–18; TEMP 36.7–36.9; O2SAT 95–98; BMI 24.9
[2020-11-09 00:01] LABS: Bedside Glucose 106 mg/dL (70-110)
[2020-11-09 05:45] LABS: Absolute Lymphocyte Count 2.77 X10^3/uL (0.83-4.51); Basophil# 0.07 X10^3/uL; Basophil% 0.6 % (0-1); Eosinophil# 0.28 X10^3/uL; Eosinophils% 2.6 % (0-5); Hematocrit 32.9 % (40-54); Hemoglobin 10.3 g/dL (13.0-16.5); Lymphocyte # 2.77 X10^3/ul (0.83-4.51); Lymphocyte % 25.5 % (19-41); Mean Corp Hgb Conc 31.3 g/dL (32-36); Mean Corpuscular Hgb 26.9 pg (27.0-32.0); Mean Corpuscular Volume 85.9 fL (80-94); Mean Platelet Vol. 9.3 fl (6.2-12.0); Monocyte# 0.74 X10^3/uL; Monocyte% 6.8 % (0-10); NRBC Flagged by Analyzer 0 % (0-5); Neutrophil # 6.98 X10^3/uL (2.7-7.7); Neutrophil % 64.2 % (47-70); Platelet Count 366 K/mm3 (150-450); RBC Distribution Width CV 14.6 % (11.6-14.6); RBC Distribution Width SD 45.1 fl (35.1-43.9); Red Blood Count 3.83 M/mm3 (4.6-6.2); White Blood Count 10.9 K/mm3 (4.4-11.0)
[2020-11-09 06:12] LABS: Anion Gap 6 (5-15); BUN 13 mg/dL (7-18); BUN/Creat Ratio 14.8 RATIO (10-20); Calcium,Total 8.2 mg/dL (8.5-10.1); Chloride 105 mmol/L (98-107); Cholesterol 99 mg/dL (200); Creatinine, Serum 0.88 mg/dL (0.70-1.30); EST Glomerular Filtration Rate 90 mL/min (>60); Est Glom Filt Rate - Afr Amer 109 mL/min (>60); Estimated Creatinine Clearance 74.76 ml/min; Glucose 148 mg/dL (74-106); High Density Lipoprotein 33 mg/dL; Sodium Level 138 mmol/L (136-145); Triglycerides 128 mg/dL; Very Low Density Lipoprotein 26 mg/dL (5-40)
[2020-11-09 06:41] LABS: Bedside Glucose 138 mg/dL (70-110)
[2020-11-09] MEDS: Aspirin 81 MG TAB.CHEW PO (07:59)
[2020-11-09] MEDS: Glucerna Shake 120 ML LIQUID PO ×2 (08:00→16:46)
[2020-11-09 08:37] LABS: Hemoglobin A1c 8.2 % (3.8-5.6)
[2020-11-09] MEDS: Cholecalciferol (VIT D3) 25 MCG TABLET (1,000 UNITS) 50 MCG PO (09:00)
[2020-11-09] MEDS: 0.9% Normal Saline 1,000 ML 100 ML IV (09:01)
[2020-11-09] MEDS: Gabapentin 300 MG Capsule PO (09:01)
[2020-11-09] MEDS: Insulin Lispro 100 UNIT/ML INSULN.PEN SC ×2 (11:03→16:47)
[2020-11-09 11:15] LABS: Bedside Glucose 223 mg/dL (70-110)
[2020-11-09] MEDS: Magnesium Hydroxide 30 ML UDC 15 ML PO (11:49)
--- NOTE | 2020-11-09 12:17 | EX.NTREPO ---
Medical Nutrition Therapy - History Nutrition Services has been consulted to:: Manage nutrient details of diet order Current diet/nutrition support order:: Cardiac - calorie controlled 1800kcal diet. Regular food consistency. Regular/thin liquid consistency. Glucerna 120mL PO 4x/day at [facility]. - Anthropometric Measurements Height:: 5 ft 9 in Weight:: 76.6 kg Body Mass Index (BMI):: 24.9 - Relevant Labs Relevant Labs:: WBC 12.1 K/mm3 (4.4-11.0) H 11/08/20 19:20 RBC 3.83 M/mm3 (4.6-6.2) L 11/09/20 05:04 Hgb 10.3 g/dL (13.0-16.5) L 11/09/20 05:04 Hct 32.9 % (40-54) L 11/09/20 05:04 MCH 26.9 pg (27.0-32.0) L 11/09/20 05:04 MCHC 31.3 g/dL (32-36) L 11/09/20 05:04 RDW Std Deviation 45.1 fl (35.1-43.9) H 11/09/20 05:04 Neut % (Auto) 70.3 % (47-70) H 11/08/20 19:20 Absolute Neuts (auto) 8.5 X10^3/uL (2.0-7.7) H 11/08/20 19:20 PT 17.8 SECONDS (11.7-14.9) H 11/08/20 19:20 APTT 41.7 Seconds (24.1-36.2) H 11/08/20 19:20 Anion Gap 4 (5-15) L 11/08/20 19:20 Glucose 148 mg/dL (74-106) H 11/09/20 05:04 Hemoglobin A1c 8.2 % (3.8-5.6) H 11/09/20 05:04 Calcium 8.2 mg/dL (8.5-10.1) L 11/09/20 05:04 HDL Cholesterol 33 mg/dL (40-) L 11/09/20 05:04 - Assessment Food and Nutrient Intake: Pt reports that he hasn't eaten much since he started feeling ill last Friday. Reports that he has been consuming 25-50% for the past week. Reports that he is able to eat at the hospital because he is getting pain medication. States that he ate 75-100% of breakfast this morning. Pt denies trouble chewing or swallowing. Pt reports UBW as 173# and CBW is 169# representing 4#/2% weight loss x8 days. Pt's HgbA1c is 8.2 suggesting poor glycemic control. - Nutrition Diagnosis: Clinical Problem Acute Disease or Injury Related Malnutrition Clinical Problem - Etiology: moderate malnutrition r/t inadequate oral intake d/t acute illness Clinical Problem - Signs/Symptoms: as evidenced by pt report of consuming <50% of energy requirements x8 days, and weight loss of 4#/2% x8 days. Status: Active Problem - Protein Calorie Malnutrition Evidence of Malnutrition Exists: Yes Moderate Protein Calorie Malnutrition: Acute Illness/Injury - Nutrition Intervention Nutrition Prescription: 1,900-2,000kcal/day (RMR x 1.3). Protein 70-80g/day (1.0g/kg). Fluid 2,000-2,200mL/day (25mL/kg) - Food / Nutrient Delivery Interventions Nutrition support ordered as / adjusted to:: Change diet to cardiac - consistent carbohydrate with no calorie restriction d/t malnutrition. Continue glucerna 120mL PO 4x/[facility] at [facility] - MNT Monitoring Active Nutrition Patient: Yes Nutrition Status: Requires Follow Up 3-5 Days
--- NOTE | 2020-11-09 12:46 | TELEMED_ITS ---
[facility] has confirmed receipt of a request for visit. This document confirms receipt of the order initiating the consult. To find the results of the consultation, please view the patient's reports for the scanned Telemed Consult.
--- NOTE | 2020-11-09 13:36 | CDU_ITS ---
Reason For Study: TIA, Indeterminate head/neck CTA Rt. Velocities/BP Lt. Velocities/BP Prox CCA 82.6/12.1 cm/sec. Prox CCA 93.8/19 cm/sec. Mid CCA 68.2/14.7 cm/sec. Mid CCA 80.5/14.6 cm/sec. Dist CCA 68.2/14.7 cm/sec. Dist CCA 68.4/13.5 cm/sec. Prox ICA 60.8/16.8 cm/sec. Prox ICA 67.3/12.4 cm/sec. Mid ICA 97.4/21.2 cm/sec. Mid ICA 64/19 cm/sec. Dist ICA 101.1/26.2 cm/sec. Dist ICA 102.5/28.9 cm/sec. Rt. ICA/CCA = 1.5. Lt. ICA/CCA = 1.3. Prox ECA 90.4/5.6 cm/sec. Prox ECA 82.7/6.9 cm/sec. Rt. Vert. 52/12.4 cm/sec. Lt. Vert. 50.9/9.1 cm/sec. Right Extracranial There is homogeneous, smooth atherosclerotic plaque noted in the right common carotid artery. There is heterogeneous, irregular atherosclerotic plaque noted in the right internal carotid artery. There is heterogeneous, irregular atherosclerotic plaque noted in the right external carotid artery. Antegrade flow is noted in the right vertebral artery. Left Extracranial There is homogeneous, smooth atherosclerotic plaque noted in the left common carotid artery. There is heterogeneous, smooth atherosclerotic plaque noted in the left internal carotid artery. There is intimal thickening but no significant atherosclerotic plaque noted in the left external carotid artery. Antegrade flow is noted in the left vertebral artery. Procedure Carotid Duplex 51964. This is a Carotid Duplex examination using B-mode, color flow and specral Doppler. Exam performed portable in patient room. VL/Carotid Duplex Ultrasound Interpretation Summary Irregular plaque at the proximal right internal carotid artery with less than 5 0% stenosis Less than 50% stenosis right external carotid artery Minimal smooth plaque noted within the proximal left internal carotid artery wi th less than 50% stenosis Less than 50% stenosis left external carotid artery Patent antegrade vertebrals bilaterally Ordering Physician: Kwabena Kaplan Referring Physician: [facility] Performed By: Claudia Olvera RVT
--- NOTE | 2020-11-09 14:45 | CASEMGMT ---
Pt is already active with [facility] for PT and therapy is recommending further OT. OT order added. Matthew MORTENSEN CM
--- NOTE | 2020-11-09 14:56 | CASEMGMT ---
SW completed a PHQ 9 with patient as he may have had a TIA. He scored a 4 which indicates minimal depression. The only thing patient would focus on was his back pain and the name of his back condition. SW had to re-direct him numerous times and again he focused on his back pain. SW spoke with him about what physicians have done to help him and what do they tell him is the treatment for his condition. He said he [facility] That [facility]. He said he thinks that is the only thing that will help. Patient was not interested in any counseling resources as the only thing he would talk about was his back pain. Reina Ayon STROBOROMA OPERATOR JUAN MANUEL
[2020-11-09] MEDS: Acetaminophen 325 MG Tablet 650 MG PO (14:59)
--- NOTE | 2020-11-09 16:20 | DCINST_ITS ---
Discharge Instructions Diet Discharge Diet: No restrictions Activity Discharge Activity: Return to Normal Activity Follow Up Care Please Follow Up With: Primary care provider When: Within the next two weeks. Test Results: Test results from this visit will be discussed in further detail at your follow-up appointment, if applicable. Discharge Plan Admission Admit Date/Time: 11/08/20 21:59 Primary Reason for Your Visit: Slurred speech Attending Provider: Kayla Church Primary Care Provider: [facility] Discharge Orders/Prescriptions Prescriptions: Continued metformin 500 MG tablet 1,000 mg PO BID RF: 0 lisinopril [Zestril] 5 MG tablet 10 mg PO DAILY RF: 0 aspirin 81 MG tablet,chewable 81 mg PO DAILY@0800 RF: 0 melatonin-pyridoxine HCl (B6) 1 EACH tablet 3 mg PO QHS RF: 0 atorvastatin 40 MG tablet 40 mg PO QHS RF: 0 cholecalciferol (vitamin D3) 50 MCG capsule 2,000 unit PO DAILY RF: 0 Insulin Glargine,Hum.rec.anlog 22 units SC QHS RF: 0 hydrocodone-acetaminophen 1 TABLET tablet 1 tab PO Q6H PRN PRN (Reason: Pain) 3 Days Qty: 10 RF: 0 insulin aspart (niacinamide) 100 unit/mL (3 mL) Insulin Pen 8 unit SUBCUT TID RF: 0 lidocaine-elastic bandage 3 patch.wk BID RF: 0 rivaroxaban 20 mg Tablet 20 mg PO DAILY RF: 0 hydrocodone-acetaminophen 1 TABLET tablet 1 tab PO Q6H PRN PRN (Reason: Pain) 3 Days Qty: 10 RF: 0 metoprolol tartrate 50 mg Tablet 50 mg PO BID RF: 0 cyclobenzaprine 5 mg Tablet 5 mg PO QHS RF: 0 gabapentin 300 mg Tablet 300 mg PO BID RF: 0 Discontinued cefazolin 1 gram Piggyback 6 g IV DAILY RF: 0 [facility]errals [facility] - Within 2 Weeks Disposition Disposition (needs filled in before D/C Order can be placed): Home, Self Care
--- NOTE | 2020-11-09 16:23 | DS.PCM_ITS ---
Documented by User: Kwabena WYATT 11/09/20 18:14 Providers Date of Admission: 11/08/20 [facility] Physician: [facility] Consultations 11/09/20 02:11 Consult: Onc/Wound/corporate compliance manager Routine Comment: Reason for Consult:: Diabetic Foot Ulcer/Wound Reason For Visit: TIA Diagnosis Discharge Diagnosis (1) TIA (transient ischemic attack): Status: Acute Code(s): G45.9 - Transient cerebral ischemic attack, unspecified Medications at Discharge Home Medications lisinopril [Zestril] 10 mg PO DAILY 05/23/18 metformin 1,000 mg PO BID 05/23/18 Insulin Glargine,Hum.rec.anlog 22 units SC QHS 06/23/20 aspirin 81 mg PO DAILY@0800 06/23/20 atorvastatin 40 mg PO QHS 06/23/20 cholecalciferol (vitamin D3) 2,000 unit PO DAILY 06/23/20 melatonin-pyridoxine HCl (B6) 3 mg PO QHS 06/23/20 hydrocodone-acetaminophen 1 tab PO Q6H PRN PRN 3 Days #10 tablet 10/04/20 hydrocodone-acetaminophen 1 tab PO Q6H PRN PRN 3 Days #10 tablet 10/23/20 insulin aspart (niacinamide) 8 unit SUBCUT TID 10/23/20 lidocaine-elastic bandage 3 patch.wk BID 10/23/20 rivaroxaban 20 mg PO DAILY 10/23/20 cyclobenzaprine 5 mg PO QHS 11/08/20 gabapentin 300 mg PO BID 11/08/20 metoprolol tartrate 50 mg PO BID 11/08/20 Hospital Course Summary of Care Provided Minutes Spent on Discharge: 35 Hospital Course: 1) TIA Brain MRI not only demonstrated chronic ischemic changes of the brain with no acute intracranial abnormality. Carotid ultrasound obtained due to poor head/neck CT-A; demonstrated less than 50% bilateral stenosis. [facility] teleneurology service consulted and had no recommendations as patient is already on aspirin, statin and is anticoagulated on Xarelto. New echocardiogram not obtained as there is no evidence of new acute ischemia or infarct on imaging. Echo from 05/23 demonstrated normal LV systolic function and size, an estimated EF 55% and stage I diastolic dysfunction. Plan; continue home regimen, follow- up with primary care provider within the next 2 weeks. 2) HTN Stable throughout admission, continue metoprolol and lisinopril. 3) hyperlipidemia Continue statin 4) DM2 Continue home diabetic regimen. 5) TRICIA Patient does have home CPAP machine however is noncompliant. Patient seen by Kwabena Kaplan PA-C, under the supervision of Dr. Church. Physical Exam Narrative Patient is a 75-year-old male comfortably resting in bed, alert and orient x3. Denies chest pain, shortness of breath, palpitations, hemoptysis, sputum production, fever, chills, N/V/D. Const alert, oriented x3 and no apparent distress Eyes EOMs intact bilaterally and conjunctivae normal Neck no lymphadenopathy, supple and no JVD Resp normal respiratory effort, no retractions, no use of accessory muscles and clear to auscultation bilaterally Cardio regular rate, regular rhythm, no murmurs and no JVD GI normal to inspection, nondistended, normoactive bowel sounds, soft to palpation and non-tender Extremity normal to inspection, full ROM and no clubbing, cyanosis or edema Skin no rashes or lesions noted, no wounds and skin turgor normal Neuro CN's II-XII intact bilaterally Psych affect normal Weight / BMI Weight Weight: 168 lb 13.985 oz Body Mass Index (BMI) 24.9 ABG / Lab / Microbiology Data Result Diagrams: 11/09/20 05:04 11/09/20 05:04 Laboratory: Laboratory Results - last 24 hr 11/08/20 11/08/20 11/08/20 19:02 19:20 19:20 WBC 12.1 H RBC 3.81 L Hgb 10.1 L Hct 32.7 L MCV 85.8 MCH 26.5 L MCHC 30.9 L RDW Std Deviation 45.2 H RDW Coeff of Fernando 14.5 Plt Count 389 MPV 9.4 Immature Gran % (Auto) 0.300 Neut % (Auto) 70.3 H Lymph % (Auto) 20.4 Sampson % (Auto) 6.8 Eos % (Auto) 1.6 Baso % (Auto) 0.6 Absolute Neuts (auto) 8.5 H Absolute Lymphs (auto) 2.46 Nucleated RBC % 0 PT 17.8 H INR 1.5 APTT 41.7 H Sodium Potassium Chloride Carbon Dioxide Anion Gap BUN Creatinine Estim Creat Clear Calc Est GFR (MDRD) Af Amer Est GFR (MDRD) Non-Af BUN/Creatinine Ratio Glucose Hemoglobin A1c Calcium Troponin I High Sens Triglycerides Cholesterol LDL Cholesterol VLDL Cholesterol HDL Cholesterol Urine Color Urine Clarity Urine pH Ur Specific [place] Urine Protein Urine Glucose (UA) Urine Ketones Urine Occult Blood Urine Nitrite Urine Bilirubin Urine Urobilinogen Ur Leukocyte Esterase Urine RBC Urine WBC Ur Squamous Epith Cells Urine Bacteria Urine Mucus POC Glucose 103 11/08/20 11/08/20 11/08/20 19:20 20:18 22:05 WBC RBC Hgb Hct MCV MCH MCHC RDW Std Deviation RDW Coeff of Fernando Plt Count MPV Immature Gran % (Auto) Neut % (Auto) Lymph % (Auto) Sampson % (Auto) Eos % (Auto) Baso % (Auto) Absolute Neuts (auto) Absolute Lymphs (auto) Nucleated RBC % PT INR APTT Sodium 136 Potassium 4.0 Chloride 105 Carbon Dioxide 27.0 Anion Gap 4 L BUN 15 Creatinine 0.94 Estim Creat Clear Calc 69.99 Est GFR (MDRD) Af Amer 101 Est GFR (MDRD) Non-Af 83 BUN/Creatinine Ratio 15.9 Glucose 102 Hemoglobin A1c Calcium 8.5 Troponin I High Sens 17.9 18.4 Triglycerides Cholesterol LDL Cholesterol VLDL Cholesterol HDL Cholesterol Urine Color Yellow Urine Clarity Clear Urine pH 7.0 Ur Specific [place] 1.005 Urine Protein 100 H Urine Glucose (UA) 250 H Urine Ketones Negative Urine Occult Blood 250 H Urine Nitrite Negative Urine Bilirubin Negative Urine Urobilinogen Normal Ur Leukocyte Esterase Negative Urine RBC 25-50 SEEN Urine WBC 0-5 SEEN Ur Squamous Epith Cells 0 SEEN Urine Bacteria 0 SEEN Urine Mucus 0 SEEN POC Glucose 11/08/20 11/09/20 11/09/20 23:45 05:04 05:04 WBC 10.9 RBC 3.83 L Hgb 10.3 L Hct 32.9 L MCV 85.9 MCH 26.9 L MCHC 31.3 L RDW Std Deviation 45.1 H RDW Coeff of Fernando 14.6 Plt Count 366 MPV 9.3 Immature Gran % (Auto) 0.300 Neut % (Auto) 64.2 Lymph % (Auto) 25.5 Sampson % (Auto) 6.8 Eos % (Auto) 2.6 Baso % (Auto) 0.6 Absolute Neuts (auto) 7.0 Absolute Lymphs (auto) 2.77 Nucleated RBC % 0 PT INR APTT Sodium 138 Potassium 4.0 Chloride 105 Carbon Dioxide 27.0 Anion Gap 6 BUN 13 Creatinine 0.88 Estim Creat Clear Calc 74.76 Est GFR (MDRD) Af Amer 109 Est GFR (MDRD) Non-Af 90 BUN/Creatinine Ratio 14.8 Glucose 148 H Hemoglobin A1c Calcium 8.2 L Troponin I High Sens Triglycerides 128 Cholesterol 99 LDL Cholesterol 40 VLDL Cholesterol 26 HDL Cholesterol 33 L Urine Color Urine Clarity Urine pH Ur Specific [place] Urine Protein Urine Glucose (UA) Urine Ketones Urine Occult Blood Urine Nitrite Urine Bilirubin Urine Urobilinogen Ur Leukocyte Esterase Urine RBC Urine WBC Ur Squamous Epith Cells Urine Bacteria Urine Mucus POC Glucose 106 11/09/20 11/09/20 11/09/20 05:04 06:29 11:02 WBC RBC Hgb Hct MCV MCH MCHC RDW Std Deviation RDW Coeff of Fernando Plt Count MPV Immature Gran % (Auto) Neut % (Auto) Lymph % (Auto) Sampson % (Auto) Eos % (Auto) Baso % (Auto) Absolute Neuts (auto) Absolute Lymphs (auto) Nucleated RBC % PT INR APTT Sodium Potassium Chloride Carbon Dioxide Anion Gap BUN Creatinine Estim Creat Clear Calc Est GFR (MDRD) Af Amer Est GFR (MDRD) Non-Af BUN/Creatinine Ratio Glucose Hemoglobin A1c 8.2 H Calcium Troponin I High Sens Triglycerides Cholesterol LDL Cholesterol VLDL Cholesterol HDL Cholesterol Urine Color Urine Clarity Urine pH Ur Specific [place] Urine Protein Urine Glucose (UA) Urine Ketones Urine Occult Blood Urine Nitrite Urine Bilirubin Urine Urobilinogen Ur Leukocyte Esterase Urine RBC Urine WBC Ur Squamous Epith Cells Urine Bacteria Urine Mucus POC Glucose 138 H 223 H Radiography Diagnostic Testing: Radiology Impression Brain CT 11/08/20 19:35 IMPRESSION: Chronic involutional and white matter changes. No acute intracranial process. Individualized dose optimization techniques were used for this CT. at 2001 Reported and signed by: Jimenez Craig MD Electronically Signed: Jimenez Craig MD at 20:00 EDT Tel , Service support , ADDENDUM: 11/08/20 2014 IMPRESSION: Chronic involutional and white matter changes. No acute intracranial process. Individualized dose optimization techniques were used for this CT. at 2001 Reported and signed by: Jimenez Craig MD N.B. : The above Results were Read Back by Jimenez Craig MD to Jono Boyer MD, , and understanding confirmed on 11/08/2020 20:07:26 (ET). Electronically Signed: Jimenez Craig MD at 20:00 EDT Tel , Service support , Head/Neck CTA 11/08/20 19:36 IMPRESSION: Limited visualization of the proximal internal carotid arteries due to motion. Stenosis cannot be excluded. Atherosclerotic calcifications at the carotid bulbs, right more than left.. Nonvisualization of the proximal segment of the right posterior cerebral artery. N.B. : The above Results were Read Back by Rosas Sullivan DO to Jono Boyer MD, , and understanding confirmed on 11/08/2020 20:35:24 (ET). Electronically Signed: Rosas Sullivan DO at 20:36 EDT Tel [phone], Service support , ADDENDUM: 11/08/202042 IMPRESSION: Limited visualization of the proximal internal carotid arteries due to motion. Stenosis cannot be excluded. Atherosclerotic calcifications at the carotid bulbs, right more than left.. Nonvisualization of the proximal segment of the right posterior cerebral artery. N.B. : The above Results were Read Back by Rosas Sullivan DO to Jono Boyer MD, MD, and understanding confirmed on 11/08/2020 20:35:24 (ET). Electronically Signed: Rosas Sullivan DO at 20:36 EDT Tel [phone], Service support , Chest X-Ray 11/08/20 20:32 IMPRESSION: Normal x-ray examination of the chest. Electronically Signed: Rosas Sullivan DO at 22:43 EDT Tel [phone], Service support , Brain MRI 11/08/20 22:34 IMPRESSION: No acute intracranial abnormality. Moderate chronic microvascular ischemic changes. Electronically Signed: Joycelyn Saldivar MD at 11:24 EDT Tel , Service support , D/C Instructions Discharge Diet: No restrictions Please Follow Up With: Primary care provider When: Within the next two weeks. Meaningful Use Info Meaningful Use Diagnoses (Choose all that apply): None applicable Discharge Plan Admission Admit Date/Time: 11/08/20 21:59 Primary Reason for Your Visit: Slurred speech Attending Provider: Kayla Church [facility] Discharge Orders/Prescriptions Prescriptions: Continued metformin 500 MG tablet 1,000 mg PO BID RF: 0 lisinopril [Zestril] 5 MG tablet 10 mg PO DAILY RF: 0 aspirin 81 MG tablet,chewable 81 mg PO DAILY@0800 RF: 0 melatonin-pyridoxine HCl (B6) 1 EACH tablet 3 mg PO QHS RF: 0 atorvastatin 40 MG tablet 40 mg PO QHS RF: 0 cholecalciferol (vitamin D3) 50 MCG capsule 2,000 unit PO DAILY RF: 0 Insulin Glargine,Hum.rec.anlog 22 units SC QHS RF: 0 hydrocodone-acetaminophen 1 TABLET tablet 1 tab PO Q6H PRN PRN (Reason: Pain) 3 Days Qty: 10 RF: 0 insulin aspart (niacinamide) 100 unit/mL (3 mL) Insulin Pen 8 unit SUBCUT TID RF: 0 lidocaine-elastic bandage 3 patch.wk BID RF: 0 rivaroxaban 20 mg Tablet 20 mg PO DAILY RF: 0 hydrocodone-acetaminophen 1 TABLET tablet 1 tab PO Q6H PRN PRN (Reason: Pain) 3 Days Qty: 10 RF: 0 metoprolol tartrate 50 mg Tablet 50 mg PO BID RF: 0 cyclobenzaprine 5 mg Tablet 5 mg PO QHS RF: 0 gabapentin 300 mg Tablet 300 mg PO BID RF: 0 Discontinued cefazolin 1 gram Piggyback 6 g IV DAILY RF: 0 Referrals / Follow [facility] [Primary Care Provider] - Within 2 Weeks Disposition Disposition (needs filled in before D/C Order can be placed): Home, Self Care Documented by User: Dr. Kayla Church MD 11/09/20 18:24 Providers Date of Admission: 11/08/20 Reason For Visit: TIA Medications at Discharge Home Medications lisinopril [Zestril] 10 mg PO DAILY 05/23/18 metformin 1,000 mg PO BID 05/23/18 Insulin Glargine,Hum.rec.anlog 22 units SC QHS 06/23/20 aspirin 81 mg PO DAILY@0800 06/23/20 atorvastatin 40 mg PO QHS 06/23/20 cholecalciferol (vitamin D3) 2,000 unit PO DAILY 06/23/20 melatonin-pyridoxine HCl (B6) 3 mg PO QHS 06/23/20 hydrocodone-acetaminophen 1 tab PO Q6H PRN PRN 3 Days #10 tablet 10/04/20 hydrocodone-acetaminophen 1 tab PO Q6H PRN PRN 3 Days #10 tablet 10/23/20 insulin aspart (niacinamide) 8 unit SUBCUT TID 10/23/20 lidocaine-elastic bandage 3 patch.wk BID 10/23/20 rivaroxaban 20 mg PO DAILY 10/23/20 cyclobenzaprine 5 mg PO QHS 11/08/20 gabapentin 300 mg PO BID 11/08/20 metoprolol tartrate 50 mg PO BID 11/08/20 ABG / Lab / Microbiology Data Result Diagrams: 11/09/20 05:04 11/09/20 05:04 Discharge Plan Admission Admit Date/Time: 11/08/20 21:59 Primary Reason for Your Visit: Slurred speech Attending Provider: Kayla Church Primary Care Provider: [facility] Discharge Orders/Prescriptions Prescriptions: Continued metformin 500 MG tablet 1,000 mg PO BID RF: 0 lisinopril [Zestril] 5 MG tablet 10 mg PO DAILY RF: 0 aspirin 81 MG tablet,chewable 81 mg PO DAILY@0800 RF: 0 melatonin-pyridoxine HCl (B6) 1 EACH tablet 3 mg PO QHS RF: 0 atorvastatin 40 MG tablet 40 mg PO QHS RF: 0 cholecalciferol (vitamin D3) 50 MCG capsule 2,000 unit PO DAILY RF: 0 Insulin Glargine,Hum.rec.anlog 22 units SC QHS RF: 0 hydrocodone-acetaminophen 1 TABLET tablet 1 tab PO Q6H PRN PRN (Reason: Pain) 3 Days Qty: 10 RF: 0 insulin aspart (niacinamide) 100 unit/mL (3 mL) Insulin Pen 8 unit SUBCUT TID RF: 0 lidocaine-elastic bandage 3 patch.wk BID RF: 0 rivaroxaban 20 mg Tablet 20 mg PO DAILY RF: 0 hydrocodone-acetaminophen 1 TABLET tablet 1 tab PO Q6H PRN PRN (Reason: Pain) 3 Days Qty: 10 RF: 0 metoprolol tartrate 50 mg Tablet 50 mg PO BID RF: 0 cyclobenzaprine 5 mg Tablet 5 mg PO QHS RF: 0 gabapentin 300 mg Tablet 300 mg PO BID RF: 0 Discontinued cefazolin 1 gram Piggyback 6 g IV DAILY RF: 0 Referrals / Follow [facility] [facility] [Primary [facility]] - Within 2 Weeks Disposition Disposition (needs filled in before D/C Order can be placed): Home, Self Care Charges/Coding Addendum Addendum: Patient seen by Kwabena Kaplan PA-C under my supervision Patient is a 75-year-old male with a past medical history as outlined who was admitted via the ED on 11/08/2020 with a complaint of slurred speech, confusion a nd ataxia. He had woken up from a nap and could not find words and had slurring of his speech and was also stumbling when ambulating to the bathroom. He was therefore brought in due to concerns about stroke. Symptoms lasted for about 10 minutes he had associated headache. On admission, CT of the brain was negative for any evidence of stroke. He was admitted and managed for TIA. CTA of the he ad and neck done showed limited visualization of the proximal internal carotid arteries due to motion and stenosis cannot be excluded. He also had atherosclerotic calcifications of the carotid bulbs more on the right than the left. Patient was on Xarelto and metoprolol due to history of A. fib. He had MRI of the brain which was negative for stroke. Teleneurology was consulted and did not think that his symptoms were indicated of a TIA. 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 Patient was already anticoagulated on Xarelto and was counseled to be compliant with his xarelto. He is to follow up with his PCP in 1-2 weeks. Patient was seen and examined prior to discharge. He had no complaints and felt well. Review of systems otherwise negative. Labs and vitals reviewed. Medication reviewed and reconciled. O/E: Const alert, oriented x3 and no apparent distress Eyes EOMs intact bilaterally and conjunctivae normal Neck no lymphadenopathy, supple and no JVD Resp normal respiratory effort, no retractions, no use of accessory muscles and clear to auscultation bilaterally Cardio regular rate, regular rhythm, no murmurs and no JVD GI normal to inspection, nondistended, normoactive bowel sounds, soft to palpation and non-tender Extremity normal to inspection, full ROM and no clubbing, cyanosis or edema Skin no rashes or lesions noted, no wounds and skin turgor normal Neuro CN's II-XII intact bilaterally, normal power and tone in all extremities Psych affect normal Rest as per Kwabena Kaplan PA-C's note, which I have reviewed. Visit Charges OBSV E&M: 45097 Observation care discharge
[2020-11-09] MEDS: Rivaroxaban 20 MG Tablet PO (16:46)
[2020-11-09 16:55] LABS: Bedside Glucose 261 mg/dL (70-110)
== END 2020-11-09 16:22 | disposition home or self-care (01) ==
LOC: ED 21:18 → PCU 22:23
PROVIDERS: Nurse Practitioner Family; Admitting Provider Hospitalist; Emergency Provider Emergency Medicine; Visit Provider Student in an Organized Health Care Education/Training Program
DX: G45.9 Transient cerebral ischemic attack, unspecified (principal); E11.621 Type 2 diabetes mellitus with foot ulcer; E78.5 Hyperlipidemia, unspecified; G47.33 Obstructive sleep apnea (adult) (pediatric); I11.0 Hypertensive heart disease with heart failure; I50.9 Heart failure, unspecified; R29.701 NIHSS score 1; Z79.899 Other long term (current) drug therapy; Z79.4 Long term (current) use of insulin; Z79.82 Long term (current) use of aspirin; Z91.19 Patient's noncompliance with other medical treatment and regimen; Z87.891 Personal history of nicotine dependence; Z79.1 Long term (current) use of non-steroidal anti-inflammatories (NSAID); R47.81 Slurred speech; L97.929 Non-pressure chronic ulcer of unspecified part of left lower leg with unspecified severity; E11.649 Type 2 diabetes mellitus with hypoglycemia without coma; I48.91 Unspecified atrial fibrillation
CPT/HCPCS: 36415; 36592; 70450; 70496; 70498; 70551; 71045; 80048; 80061; 81001; 82962; 83036; 84484; 85025; 85610; 85730; 92523; 92610; 93005; 93306; 93880; 94762; 96360; 96361; 97162; 97166; 97802; 99218; 99285; J7030; Q9957; Q9967; A4216; C8929; G0378; J3490

== ENCOUNTER 2020-11-16 12:09 | Observation (INO) | payer OTHER, MEDICARE, SELFPAY ==
[2020-11-09 12:17] VITALS: BMI 24.9
[2020-11-16] VITALS (9 sets, daily range): BP systolic 119–157; BP diastolic 50–89; PULSE 78–87; RESP 15–24; TEMP 36.7–37.1; O2SAT 95–98; BMI 25.8; BMI 25.0
--- NOTE | 2020-11-16 12:22 | CT_ITS ---
STUDY: CTA HEAD AND NECK WITH CONTRAST REASON FOR EXAM: Male, 75 years old. TIA RADIATION DOSAGE (If Supplied By Facility): CTDIvol = ( 21.83 ) mGy, DLP = ( 765.33 ) mGycm TECHNIQUE: CT angiography was performed with a multi-detector CT scanner. Data acquisition was obtained from the skull base through the vertex following intravenous administration of IV 100mL [id number]-[id number]. MIP images were reconstructed from the axial data set. Post-processing of the angiographic images was performed, with multiplanar reformation and 3D reconstruction. Individualized dose optimization techniques were used for this CT. COMPARISON: No relevant priors. FINDINGS: Normal bilateral petrous carotid arteries. There is calcified plaque formation of the right cavernous carotid artery, without a cross-sectional luminal stenosis. There is calcified plaque formation of the left cavernous carotid artery, without a cross-sectional luminal stenosis. Normal right A1 segments of the anterior cerebral artery. Normal left A1 segments of the anterior cerebral artery. Normal intact anterior communicating artery (ACOM). Normal bilateral A2 segments of the anterior cerebral arteries. Normal right M1 and M2 segments of the middle cerebral arteries, with a normal M1 bifurcation. Normal left M1 and M2 segments of the middle cerebral arteries, with a normal M1 bifurcation. Normal right posterior communicating artery (PCOM). There is a persistent origin of the left posterior cerebral artery with absence of the posterior communicating artery (PCOM). Normal bilateral vertebral arteries. Normal basilar artery with a normal basilar bifurcation. The visualized bilateral superior cerebellar (SCA) arteries are normal. Normal bilateral P1, P2 and visualized P3 segments of the posterior cerebral arteries. There is no demonstrated aneurysm of the [place]. AORTIC ARCH: There is atherosclerotic calcific plaque formation of the aortic arch and great vessels arising from the aortic arch, without a hemodynamically significant stenosis. There is a normal origin of the brachiocephalic, left common carotid, and left subclavian arteries. RIGHT CAROTID ARTERIES: Normal right common carotid artery (CCA). Normal right common carotid bulb. There is moderate atherosclerotic plaque formation of the origin of the right internal carotid artery with an estimated stenosis of 50-69% stenosis. Normal visualized cervical portion of the right internal carotid artery. There is mild atherosclerotic plaque formation of the origin of the right external carotid artery with less than 50% cross sectional diameter stenosis. LEFT CAROTID ARTERIES: Normal left common carotid artery (CCA). Normal left common carotid bulb. There is mild atherosclerotic plaque formation of the origin of the left internal carotid artery with less than 50% cross sectional diameter stenosis. Normal visualized cervical portion of the left internal carotid artery. Normal origin of the left external carotid artery (ECA). VERTEBRAL ARTERIES: Focal calcific plaque in the distal portion of the left vertebral artery. IMPRESSION: Calcific plaque at the origin the right internal carotid artery causing between a 50 and 69% stenosis. Calcific plaque at the origin of the left internal carotid artery causing less than 50% stenosis. Electronically Signed: Valente Beverly MD at 14:09 EDT , Service support , STUDY: CT BRAIN WITHOUT CONTRAST REASON FOR EXAM: Male, 75 years old. TIA RADIATION DOSAGE (If Supplied By Facility): CTDIvol = ( 44.99 ) mGy, DLP = ( 829.85 ) mGycm TECHNIQUE: Transaxial CT imaging of the brain was performed without administration of intravenous contrast material. Individualized dose optimization techniques were used for this CT. COMPARISON: No relevant priors. FINDINGS: Normal soft tissue structures. Normal calvarium. There is mild cerebral atrophy with widening of the extra-axial spaces and ventricular dilatation. There are areas of decreased attenuation within the white matter tracts of the supratentorial brain, consistent with microvascular disease changes. Normal basal ganglia and thalami. Normal brainstem. Normal cerebellum. There is no intracranial hemorrhage. There are no findings of an acute ischemic infarction. There is opacification of the right maxillary sinus. Soft tissue prominence in the posterior aspect of the right nasal fossa suggestive of polyposis. CT/CTA Head AND Neck W/ Contrast IMPRESSION: Chronic involutional changes of the brain. Partial opacification of the right maxillary sinus and the prominence in the posterior aspect of the right nasal fossa suggestive of polyposis. Electronically Signed: Valente Beverly MD at 14:10 EDT , Service support ,
--- NOTE | 2020-11-16 13:11 | EKG12_ITS ---
Test Reason : NEURO Blood Pressure : / mmHG Vent. Rate : 076 BPM Atrial Rate : 076 BPM P-R Int : 194 ms QRS Dur : 074 ms QT Int : 388 ms P-R-T Axes : -04 -25 097 degrees QTc Int : 436 ms Normal sinus rhythm Septal infarct , age undetermined Abnormal ECG Confirmed by DION RICE, YUMIKO ([id number]), publication editor ELISABETH ANDERSON ([id number]) on 11/20/2020 9:25:08 AM Referred By: POONAM Confirmed By:JOHN ASHLEY MD
[2020-11-16 13:14] LABS: Absolute Lymphocyte Count 2.44 X10^3/uL (0.83-4.51); Absolute Neutrophil Count 8.9 X10^3/uL (2.0-7.7); Basophil# 0.06 X10^3/uL; Basophil% 0.5 % (0-1); Eosinophils% 0.8 % (0-5); Hematocrit 35.6 % (40-54); Hemoglobin 11.1 g/dL (13.0-16.5); Lymphocyte # 2.44 X10^3/ul (0.83-4.51); Lymphocyte % 19.9 % (19-41); Mean Corp Hgb Conc 31.2 g/dL (32-36); Mean Corpuscular Hgb 26.6 pg (27.0-32.0); Mean Corpuscular Volume 85.2 fL (80-94); Mean Platelet Vol. 9.9 fl (6.2-12.0); Monocyte# 0.73 X10^3/uL; Monocyte% 5.9 % (0-10); NRBC Flagged by Analyzer 0 % (0-5); Neutrophil # 8.93 X10^3/uL (2.7-7.7); Neutrophil % 72.7 % (47-70); Platelet Count 385 K/mm3 (150-450); RBC Distribution Width CV 14.6 % (11.6-14.6); RBC Distribution Width SD 45.5 fl (35.1-43.9); Red Blood Count 4.18 M/mm3 (4.6-6.2); White Blood Count 12.3 K/mm3 (4.4-11.0)
[2020-11-16 13:30] LABS: Bedside Glucose 101 mg/dL (70-110)
[2020-11-16 13:33] LABS: ALB/GLOB Ratio 0.6 RATIO (0.9-2.4); AST(SGOT) 16 U/L (15-37); Alanine Aminotransfer ALT/SGPT 8 U/L (16-61); Albumin, Serum 2.9 g/dL (3.2-5.0); Alkaline Phosphatase 64 U/L (45-117); Anion Gap 7 (5-15); BUN 23 mg/dL (7-18); BUN/Creat Ratio 19.2 RATIO (10-20); Calcium,Total 8.6 mg/dL (8.5-10.1); Chloride 104 mmol/L (98-107); EST Glomerular Filtration Rate 63 mL/min (>60); Est Glom Filt Rate - Afr Amer 76 mL/min (>60); Estimated Creatinine Clearance 61.55 ml/min; Globulin 5.1 g/dL (2.2-4.2); Glucose 89 mg/dL (74-106); Potassium 4.2 mmol/L (3.5-5.1); Sodium Level 137 mmol/L (136-145)
--- NOTE | 2020-11-16 13:34 | EDS_ITS ---
HPI History of Present Illness Chief Complaint: Neuro S/Sx Narrative Narrative: Patient with history of TIA presenting with expressive aphasia. He states that he started to have symptoms worsening today but cannot elaborate because of his history of expressive aphasia. He does not state that he had any numbness or tingling in his arms or legs. He has full function of his arms and legs. He does not have a facial droop. His speech is not slurred. His main difficulty is with word finding and stating the correct word he is trying to say. Patient is on aspirin and Xarelto. His recent work-up showed chronic ischemic changes on MRI. [facility] Medical History Congestive heart failure (CHF) Partial nontraumatic amputation of right foot TIA (transient ischemic attack) Home Medications lisinopril [Zestril] 10 mg PO DAILY 05/23/18 [History Last Taken 07/19/18] metformin 1,000 mg PO BID 05/23/18 [History Last Taken Unknown] Insulin Glargine,Hum.rec.anlog 22 units SC QHS 06/23/20 [History Last Taken Unknown] aspirin 81 mg PO DAILY@0800 06/23/20 [History Last Taken Unknown] atorvastatin 40 mg PO QHS 06/23/20 [History Last Taken Unknown] cholecalciferol (vitamin D3) 2,000 unit PO DAILY 06/23/20 [History Last Taken Unknown] melatonin-pyridoxine HCl (B6) 3 mg PO QHS 06/23/20 [History Last Taken Unknown] hydrocodone-acetaminophen 1 tab PO Q6H PRN PRN 3 Days #10 tablet 10/04/20 [Rx Last Taken Unknown] hydrocodone-acetaminophen 1 tab PO Q6H PRN PRN 3 Days #10 tablet 10/23/20 [Rx Last Taken Unknown] insulin aspart (niacinamide) 8 unit SUBCUT TID 10/23/20 [History Last Taken Unknown] lidocaine-elastic bandage 3 patch.wk BID 10/23/20 [History Last Taken Unknown] rivaroxaban 20 mg PO DAILY 10/23/20 [History Last Taken Unknown] cyclobenzaprine 5 mg PO QHS 11/08/20 [History Last Taken Unknown] gabapentin 300 mg PO BID 11/08/20 [History Last Taken Unknown] metoprolol tartrate 50 mg PO BID 11/08/20 [History Last Taken Unknown] Allergy/AdvReac Type Severity Reaction Status Date / Time No Known Allergies Allergy Verified 11/16/20 12:10 Family History Mother Diabetes Father COPD (chronic obstructive pulmonary disease) Surgical History Hx of CABG Social History Smoking Status: Former smoker ROS ROS ED Constitutional Constitutional ED: Denies fever(s) or subjective Eyes Eyes: Denies blurry vision or change in vision ENT ENT ED: Denies rhinorrhea or sore throat Cardiovascular Cardiovascular: Denies chest pain or palpitations Respiratory/Chest Respiratory/Chest: Denies cough or dyspnea Gastrointestinal Gastrointestinal: Denies abdominal pain or nausea Genitourinary Genitourinary ED: Denies dysuria or hematuria Musculoskeletal Musculoskeletal: Denies arthralgias or myalgias Integumentary Denies abscess or rash Neurologic Neurologic: Reports headache(s); Denies paresthesias Psychiatric Psychiatric: Denies anxiety or depression EXAM Physical Exam Const Vital Signs: 11/16/20 12:10 11/16/20 15:11 Temperature 98.1 F Temperature Source Temporal Pulse Rate 82 81 Respiratory Rate 16 24 H Blood Pressure 140/71 H 121/83 H Blood Pressure Mean 94 95 Pulse Ox 96 96 Oxygen Delivery Method Room Air Room Air HEENT Reports moist mucous membranes Negative for atraumatic Eyes PERRL and EOMs intact bilaterally Neck no lymphadenopathy and supple Resp normal respiratory effort and clear to auscultation bilaterally Cardio Rate: regular rate Rhythm: regular rhythm GI normal to inspection, nondistended, normoactive bowel sounds Extremity normal to inspection General Extremety ED: Yes tenderness Neuro CN's II-XII intact bilaterally Sensorium / Orientation: alert Psych mental status grossly normal Skin Lesions: no lesions Rashes: no rashes STROKE Vital Signs/Narrative: Vital Signs Temp Pulse Resp BP Pulse Ox 11/16/20 15:11 81 24 H 121/83 H 96 11/16/20 12:10 98.1 F 82 16 140/71 H 96 MDM MDM MDM Narrative Medical decision making narrative: After going through the patient's notes and talking with the hospitalist it appears that his expressive aphasia did resolve prior to leaving the hospital last time. He is unable to tell me exactly when the symptoms started this morning but he did state they started this morning. Patient is not a TPA candidate because he is on Xarelto. Patient's previous imaging and testing were reviewed and there was no stroke found. Patient's CBC shows a white blood cell count of 12.3, hemoglobin hematocrit are stable. Electrolytes and GFR normal. LFTs are normal. On neurologic exam the patient does not have any deficits in his extremities. His visual amaya are normal. He does have slight stuttering and possibly slurring of his speech as well as expressive aphasia for which I will give him a stroke scale score of 3. His EKG shows a sinus rhythm at 76 bpm without signs of ischemic change or dysrhythmia as interpreted by myself. Patient has slight leukocytosis at 12.3. Hemoglobin hematocrit are stable. Renal function and electrolytes are normal. Patient did have an elevated lactic acid at 2.9. It was thought that possibly seizure could make this expressive aphasia occur however lactic acid 2.9. Does not make me think of a seizure. Patient was given IV fluids. He was given Reglan and Benadryl as well for his headache and this did improve. He is asking for food. His speech is more clear now however he still has a little bit of the expressive aphasia. Patient was discussed with hospitalist for admission. Impression: 1. Expressive aphasia Lab Data Labs: Laboratory Results - last 24 hr 11/16/20 11/16/20 11/16/20 12:15 13:00 13:00 WBC 12.3 H RBC 4.18 L Hgb 11.1 L Hct 35.6 L MCV 85.2 MCH 26.6 L MCHC 31.2 L RDW Std Deviation 45.5 H RDW Coeff of Fernando 14.6 Plt Count 385 MPV 9.9 Immature Gran % (Auto) 0.200 Neut % (Auto) 72.7 H Lymph % (Auto) 19.9 [place] % (Auto) 5.9 Eos % (Auto) 0.8 Baso % (Auto) 0.5 Absolute Neuts (auto) 8.9 H Absolute Lymphs (auto) 2.44 Nucleated RBC % 0 PT INR Sodium 137 Potassium 4.2 Chloride 104 Carbon Dioxide 26.0 Anion Gap 7 BUN 23 H Creatinine 1.20 Estim Creat Clear Calc 61.55 Est GFR (MDRD) Af Amer 76 Est GFR (MDRD) Non-Af 63 BUN/Creatinine Ratio 19.2 Glucose 89 Lactic Acid Calcium 8.6 Total Bilirubin 0.50 AST 16 ALT 8 L Alkaline Phosphatase 64 Troponin I High Sens Total Protein 8.0 Albumin 2.9 L Globulin 5.1 H Albumin/Globulin Ratio 0.6 L POC Glucose 101 11/16/20 11/16/20 11/16/20 13:00 14:00 14:05 WBC RBC Hgb Hct MCV MCH MCHC RDW Std Deviation RDW Coeff of Fernando Plt Count MPV Immature Gran % (Auto) Neut % (Auto) Lymph % (Auto) [place] % (Auto) Eos % (Auto) Baso % (Auto) Absolute Neuts (auto) Absolute Lymphs (auto) Nucleated RBC % PT 21.7 H INR 2.0 Sodium Potassium Chloride Carbon Dioxide Anion Gap BUN Creatinine Estim Creat Clear Calc Est GFR (MDRD) Af Amer Est GFR (MDRD) Non-Af BUN/Creatinine Ratio Glucose Lactic Acid 2.9 H* Calcium Total Bilirubin AST ALT Alkaline Phosphatase Troponin I High Sens 14.0 Total Protein Albumin Globulin Albumin/Globulin Ratio POC Glucose Radiography Diagnostic Testing: Radiology Impression Head/Neck CTA 11/16/20 12:22 IMPRESSION: Chronic involutional changes of the brain. Partial opacification of the right maxillary sinus and the prominence in the posterior aspect of the right nasal fossa suggestive of polyposis. Electronically Signed: Valente Beverly MD at 14:10 EDT , Service support , Chest X-Ray 11/16/20 13:45 IMPRESSION: No acute abnormality is seen. Electronically Signed: Valente Beverly MD at 14:05 EDT , Service support , Discharge Plan Triage Chief Complaint: Neuro S/Sx ED Provider: Carrington Inman Dx/Rx/DC Orders Prescriptions: No Action metformin 500 MG tablet 1,000 mg PO BID RF: 0 lisinopril [Zestril] 5 MG tablet 10 mg PO DAILY RF: 0 aspirin 81 MG tablet,chewable 81 mg PO DAILY@0800 RF: 0 melatonin-pyridoxine HCl (B6) 1 EACH tablet 3 mg PO QHS RF: 0 atorvastatin 40 MG tablet 40 mg PO QHS RF: 0 cholecalciferol (vitamin D3) 50 MCG capsule 2,000 unit PO DAILY RF: 0 Insulin Glargine,Hum.rec.anlog 22 units SC QHS RF: 0 hydrocodone-acetaminophen 1 TABLET tablet 1 tab PO Q6H PRN PRN (Reason: Pain) 3 Days Qty: 10 RF: 0 insulin aspart (niacinamide) 100 unit/mL (3 mL) Insulin Pen 8 unit SUBCUT TID RF: 0 lidocaine-elastic bandage 3 patch.wk BID RF: 0 rivaroxaban 20 mg Tablet 20 mg PO DAILY RF: 0 hydrocodone-acetaminophen 1 TABLET tablet 1 tab PO Q6H PRN PRN (Reason: Pain) 3 Days Qty: 10 RF: 0 metoprolol tartrate 50 mg Tablet 50 mg PO BID RF: 0 cyclobenzaprine 5 mg Tablet 5 mg PO QHS RF: 0 gabapentin 300 mg Tablet 300 mg PO BID RF: 0 Primary Care Provider: [place], [place]
--- NOTE | 2020-11-16 13:45 | RAD_ITS ---
STUDY: X-RAY CHEST REASON FOR EXAM: Male, 75 years old. tia TECHNIQUE: Single AP portable view of the chest. COMPARISON: Comparison is made with prior study dated 11/08/2020. FINDINGS: The lungs are clear and expanded. There is no demonstrated pleural abnormality. Sternal cerclage wires and vascular clips are present from a prior sternotomy and coronary artery bypass graft procedure (CABG). Normal mediastinum and ibeth. Normal visualized pulmonary arteries. There is atherosclerotic tortuosity of the aortic arch and descending thoracic aorta. Normal visualized thoracic spine. Normal visualized ribs, clavicles, and shoulders. There is no demonstrated abnormality of the visualized soft tissue structures of the upper abdomen. RAD/Chest 1 View (Portable) IMPRESSION: No acute abnormality is seen. Electronically Signed: Valente Beverly MD at 14:05 EDT , Service support ,
[2020-11-16 14:22] LABS: Prothrombin Time (Protime)PT. 21.7 SECONDS (11.7-14.9)
[2020-11-16 14:45] LABS: Lactic Acid 2.9 mmol/L (0.4-1.9)
[2020-11-16] MEDS: Metoclopramide 10 MG/2 ML Vial IV (14:52)
[2020-11-16] MEDS: DiphenhydrAMINE 50 MG/ML Syringe 25 MG IV (14:52)
[2020-11-16] MEDS: 0.9% Normal Saline 1,000 ML 999 ML IV (15:09)
--- NOTE | 2020-11-16 15:41 | HP.PCM.HOS_ITS ---
Documented by User: Quiana Hanna NP, CLIENT INTEGRATION MANAGER-C 11/16/20 16:48 HPI - General General Date of Admission: 11/16/20 HPI Narrative SALLY KELSEY, is a 75 M who presents to the emergency room due to speech difficulty. Patient's daughter at bedside states this began around 1130 this morning. She states he has had 3 TIAs since 10/27/2020. He was initially treated at the NH in [place]. Patient denies vision changes, unilateral weakness or focal deficits. States he has difficulty with short-term memory since his initial TIA however today he was unable to state things that he knows very well. He reports depression as this has affected his daily life. Joce cartagena's daughter states he was started on Xarelto about 1 month ago at [facility] due to atrial flutter with RVR. He has a past medical history of type 2 diabetes mellitus, paroxysmal atrial flutter, hypertension, hyperlipidemia, TRICIA. [facility] Medical History (Updated 11/16/20 @ 16:19 by María Menjivar) Atrial fibrillation Chest pain Chronic pain Congestive heart failure (CHF) CPAP (continuous positive airway pressure) dependence Depression Diabetes Non-smoker Partial nontraumatic amputation of right foot Sleep apnea TIA (transient ischemic attack) Home Medications metformin 1,000 mg PO BID 05/23/18 [History Last Taken 11/16/20] aspirin 81 mg PO DAILY@0800 06/23/20 [History Last Taken 11/16/20] atorvastatin 40 mg PO QHS 06/23/20 [History Last Taken 11/15/20] cholecalciferol (vitamin D3) 2,000 unit PO DAILY 06/23/20 [History Last Taken 11/16/20] melatonin-pyridoxine HCl (B6) 3 mg PO QHS 06/23/20 [History Last Taken Unknown] insulin aspart (niacinamide) 8 unit SUBCUT TID 10/23/20 [History Last Taken 11/15/20] rivaroxaban 20 mg PO DAILY 10/23/20 [History Last Taken 11/15/20] metoprolol tartrate 50 mg PO BID 11/08/20 [History Last Taken 11/16/20] acetaminophen [Tylenol Extra Strength] 1,000 mg PO Q6H PRN 11/16/20 [History Last Taken 11/16/20] cyclobenzaprine [Flexeril] 5 mg PO QHS 11/16/20 [History Last Taken 11/15/20] gabapentin 300 mg PO BID 11/16/20 [History Last Taken 11/16/20] insulin glargine [Lantus U-100 Insulin] 22 unit SUBCUT QHS 11/16/20 [History Last Taken 11/15/20] lisinopril 10 mg PO QHS 11/16/20 [History Last Taken 11/15/20] Allergy/AdvReac Type Severity Reaction Status Date / Time No Known Allergies Allergy Verified 11/16/20 12:10 Family History Mother Diabetes Father COPD (chronic obstructive pulmonary disease) Surgical History Hx of CABG Social History (Updated 11/16/20 @ 16:45 by Quiana Hanna NP, CLIENT INTEGRATION MANAGER-C) Smoking Status: Former smoker alcohol intake: never substance use type: does not use ROS Constitutional Constitutional: Denies change in weight, chills, fatigue, fever(s) or weakness Cardiovascular Cardiovascular: Denies chest pain, edema, lightheadedness, palpitations or syncope Respiratory/Chest Respiratory/Chest: Denies cough, dyspnea, productive cough, shortness of breath at rest, shortness of breath with exertion or wheezing Gastrointestinal Gastrointestinal: Denies abdominal pain, constipation, diarrhea, nausea or vomiting Genitourinary Genitourinary: Denies burning urination, difficulty urinating, dysuria, hematur ia, urinary frequency, urinary incontinence or urinary urgency Musculoskeletal Musculoskeletal: Denies back pain, joint pain or muscle weakness Integumentary Integumentary: Denies erythema, lesions, rash or wounds Neurologic Neurologic: Reports abnormal speech; Denies confusion, dizziness, focal weakness, numbness, paresthesias, seizure-like activity or syncope Psychiatric Psychiatric: Reports depression; Denies anxiety Hematologic/Lymphatic Hematologic/Lymphatic: Denies anemia, easy bleeding or easy bruising Allergic/Immunologic Allergic/Immunologic: Denies hives or asthma Vital Signs Vital Signs Vital Signs: 11/16/20 12:10 11/16/20 15:11 11/16/20 15:28 Temperature 98.1 F 98.1 F Temperature Source Temporal Temporal Pulse Rate 82 81 81 Respiratory Rate 16 24 H 15 Blood Pressure 140/71 H 121/83 H 121/83 H Blood Pressure Mean 94 95 95 Pulse Ox 96 96 96 Oxygen Delivery Method Room Air Room Air Room Air Weight Weight: 174 lb 15.694 oz Body Mass Index (BMI) 8.9 Physical Exam Const alert, oriented x3 and no apparent distress Orientation / Consciousness: awake, oriented to person, oriented to place and oriented to time HEENT normocephalic and moist oral mucous membranes Eyes PERRL, EOMs intact bilaterally and conjunctivae normal Neck no lymphadenopathy Resp normal respiratory effort and clear to auscultation bilaterally Cardio regular rate, regular rhythm and no murmurs Peripheral Pulses: pulses 2+ throughout GI normal to inspection, nondistended, normoactive bowel sounds, non-tender and non-distended Extremity normal to inspection Extremity Narrative: Right foot partial amputation Skin no rashes or lesions noted Lesions: no lesions Rashes: no rashes Trauma: no lacerations or abrasions Neuro CN's II-XII intact bilaterally, no focal motor deficits, no sensory deficits noted and deep tendon reflexes 2+ bilaterally Psych mental status grossly normal and affect normal Results Lab / Micro Data Result Diagrams: 11/16/20 13:00 11/16/20 13:00 Labs: Laboratory Results - last 24 hr 11/16/20 12:15: POC Glucose 101 11/16/20 13:00: WBC 12.3 H, RBC 4.18 L, Hgb 11.1 L, Hct 35.6 L, MCV 85.2, MCH 26 .6 L, MCHC 31.2 L, RDW Std Deviation 45.5 H, RDW Coeff of Fernando 14.6, Plt Count 385, MPV 9.9, Immature Gran % (Auto) 0.200, Neut % (Auto) 72.7 H, Lymph % (Auto) 19.9, Davidson % (Auto) 5.9, Eos % (Auto) 0.8, Baso % (Auto) 0.5, Absolute Neuts (auto) 8.9 H, Absolute Lymphs (auto) 2.44, Nucleated RBC % 0 11/16/20 13:00: Sodium 137, Potassium 4.2, Chloride 104, Carbon Dioxide 26.0, Anion Gap 7, BUN 23 H, Creatinine 1.20, Estim Creat Clear Calc 61.55, Est GFR (MDRD) Af Amer 76, Est GFR (MDRD) Non-Af 63, BUN/Creatinine Ratio 19.2, Glucose 89, Calcium 8.6, Total Bilirubin 0.50, AST 16, ALT 8 L, Alkaline Phosphatase 64, Total Protein 8.0, Albumin 2.9 L, Globulin 5.1 H, Albumin/Globulin Ratio 0.6 L 11/16/20 13:00: Troponin I High Sens 14.0 11/16/20 14:00: PT 21.7 H, INR 2.0 11/16/20 14:05: Lactic Acid 2.9 H* Radiology Impression Head/Neck CTA 11/16/20 12:22 IMPRESSION: Chronic involutional changes of the brain. Partial opacification of the right maxillary sinus and the prominence in the posterior aspect of the right nasal fossa suggestive of polyposis. Electronically Signed: Valente Beverly MD at 14:10 EDT , Service support , Chest X-Ray 11/16/20 13:45 IMPRESSION: No acute abnormality is seen. Electronically Signed: Valente Beverly MD at 14:05 EDT , Service support , Assessment & Plan Assessment/Plan (1) TIA (transient ischemic attack): PLAN: 1. Recurrent TIA-recent discharge 11/09/2020 with TIA. Recurrent symptoms. Recent echocardiogram 11/09/2020 demonstrated an EF of 45 to 50%. Small sized echogenic mass/ LV thrombus. Head and neck CTA on admission demonstrated right internal carotid artery between 50 to 69% stenosis. Left internal carotid artery less than 50% stenosis. Carotid ultrasound showed less than 50% stenosis bilaterally. Brain MRI 11/09/2020 negative for stroke. Repeat MRI of brain. Following imaging, consult [facility] neurology. Continue aspirin, statin, Xarelto. PT/OT/ST. 2. Leukocytosis, lactic acidosis-Suspect lactic acid reactive. No evidence of active infection. Repeat labs. 3. Type 2 diabetes mellitus-hold metformin. Accu-Cheks with sliding scale insul in. Recent hemoglobin A1c 8.2%. 4. History of atrial flutter-on Xarelto, metoprolol. 5. Hypertension-stable, continue lisinopril, metoprolol. 6. Hyperlipidemia-continue statin. 7. TRICIA-noncompliant with CPAP. 8. CAD with history of CABG-continue medical management. DVT prophylaxis-Xarelto. This patient was seen by ABDIRIZAK Aranda under the supervision of Dr. Wilkerson. Documented by User: Dr. Sky Wilkerson, 11/16/20 19:46 HPI - General General Date of Admission: 11/16/20 [facility] Medical History (Updated 11/16/20 @ 16:19 by María Menjivar) Atrial fibrillation Chest pain Chronic pain Congestive heart failure (CHF) CPAP (continuous positive airway pressure) dependence Depression Diabetes Non-smoker Partial nontraumatic amputation of right foot Sleep apnea TIA (transient ischemic attack) Home Medications metformin 1,000 mg PO BID 05/23/18 [History Last Taken 11/16/20] aspirin 81 mg PO DAILY@0800 06/23/20 [History Last Taken 11/16/20] atorvastatin 40 mg PO QHS 06/23/20 [History Last Taken 11/15/20] cholecalciferol (vitamin D3) 2,000 unit PO DAILY 06/23/20 [History Last Taken 11/16/20] melatonin-pyridoxine HCl (B6) 3 mg PO QHS 06/23/20 [History Last Taken Unknown] insulin aspart (niacinamide) 8 unit SUBCUT TID 10/23/20 [History Last Taken 11/15/20] rivaroxaban 20 mg PO DAILY 10/23/20 [History Last Taken 11/15/20] metoprolol tartrate 50 mg PO BID 11/08/20 [History Last Taken 11/16/20] acetaminophen [Tylenol Extra Strength] 1,000 mg PO Q6H PRN 11/16/20 [History Last Taken 11/16/20] cyclobenzaprine [Flexeril] 5 mg PO QHS 11/16/20 [History Last Taken 11/15/20] gabapentin 300 mg PO BID 11/16/20 [History Last Taken 11/16/20] insulin glargine [Lantus U-100 Insulin] 22 unit SUBCUT QHS 11/16/20 [History Last Taken 11/15/20] lisinopril 10 mg PO QHS 11/16/20 [History Last Taken 11/15/20] Allergy/AdvReac Type Severity Reaction Status Date / Time No Known Allergies Allergy Verified 11/16/20 12:10 Family History (Reviewed 11/16/20 @ 16:44 by Quiana Hanna CLIENT INTEGRATION MANAGER, CLIENT INTEGRATION MANAGER-C) Mother Diabetes Father COPD (chronic obstructive pulmonary disease) Surgical History Hx of CABG Social History (Updated 11/16/20 @ 16:45 by Quiana Hanna CLIENT INTEGRATION MANAGER, CLIENT INTEGRATION MANAGER-C) Smoking Status: Former smoker alcohol intake: never substance use type: does not use Results Lab / Micro Data Result Diagrams: 11/16/20 13:00 11/16/20 13:00 Charges/Coding Addendum Addendum: Patient was seen and examined independently of Quiana Hanna, he came to the ER at [facility] today with complaints of difficulty forming sentences, it was felt he had expressive aphasia, patient has had 2 episodes of similar symptoms over the past month, patient was released from the hospital approximately a week ago and underwent a work-up at that time, the work-up at that time showed evidence of a 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 Patient had an MRI of the brain late this afternoon which was negative for evidence of stroke. On examination he appeared in good health and spirits. Vital signs as documented. Skin warm and dry and without overt rashes. Neck without JVD, neck was supple, trachea midline, thyroid was normal. Lungs clear bilaterally, normal air movement was noted. Heart exam notable for regular rhythm, normal sounds and absence of murmurs, rubs or gallops. Abdomen unremarkable and without evidence of organomegaly, masses, or abdominal aortic enlargement. Bowel sounds are present, abdomen is not distended. Extremities nonedematous, no cyanosis was noted, no clubbing was noted. Neuro: Cranial nerves II through XII are grossly intact, no focal motor deficits were noted, sensation to light touch and pinprick intact, motor exam 5/5 throughout. Psych: Patient is alert and oriented x3, he does not appear anxious or depressed, he does not appear agitated. I have reviewed Quiana Hanna's history and physical including her medical assessment and plan of care and endorse it. Patient will undergo a limited echocardiogram tomorrow and be seen by teleneurology. He will remain on antiplatelet therapy and Xarelto. Visit Charges OBSV E&M: [id number] Initial observation care L3
--- NOTE | 2020-11-16 15:57 | MRI_ITS ---
STUDY: MRI BRAIN WITHOUT CONTRAST REASON FOR EXAM: Male, 75 years old. TIA, SLURRED SPEECH,CONFUSION TECHNIQUE: Standardized multiplanar fat and water weighted pulse sequences were obtained. COMPARISON: CT and CTA Brain 11/16/2020 and MRI brain 11/09/2020 FINDINGS: There is moderate cerebral atrophy with widening of the extra-axial spaces and ventricular dilatation. There are multiple white matter hyperintensities, distributed throughout the deep white matter tracts of the cerebral hemispheres, consistent with moderate chronic white matter ischemic changes. There is no evidence for recent intracranial ischemia or other cause of cytotoxic edema on diffusion weighted imaging (DWI). Normal bilateral basal ganglia. Normal thalami. There is no extra-axial fluid accumulation. Normal flow voids within the major intracranial circulation suggesting patency by spin echo criteria. Normal sella turcica, pituitary gland, infundibular stalk, optic chiasm and hypothalamus. Normal tectal plate and pineal gland. Normal midbrain, anel and medulla. Normal cerebellum. Normal basal cisterns. Normal bilateral temporal bones. Normal bilateral internal auditory canals. Lens implant on the right. Mucosal thickening right maxillary sinus. Normal calvarium and skull base. Normal visualized soft tissue structures. Normal visualized upper cervical spine. MRI/Brain without Contrast IMPRESSION: No acute disease. Chronic involutional changes. Right maxillary sinus disease. Electronically Signed: Ignacio Barber MD at 18:56 EDT , Service support ,
[2020-11-16 17:08] LABS: Troponin-I HS 15.8 pg/mL (3.0-78.5)
[2020-11-16 18:10] LABS: Reflex Lactate? Y
[2020-11-16] MEDS: 0.9% Normal Saline 1,000 ML 100 ML IV (18:26)
[2020-11-16] MEDS: Rivaroxaban 20 MG Tablet PO (18:27)
[2020-11-16 18:31] LABS: Bedside Glucose 54 mg/dL (70-110)
[2020-11-16 19:06] LABS: Bedside Glucose 70 mg/dL (70-110)
--- NOTE | 2020-11-16 20:22 | NURSING ---
Dr. Wilkerson on floor to see pt. NIH/VS/PT/OT discontinued at this time. Daughter updated.
[2020-11-16 20:27] LABS: Lactic Acid 3.4 mmol/L (0.4-1.9)
[2020-11-16] MEDS: Insulin Lispro 100 UNIT/ML INSULN.PEN SC (22:52)
[2020-11-16] MEDS: Atorvastatin Calcium 40 MG Tablet PO (22:53)
[2020-11-16] MEDS: Metoprolol Tartrate 50 MG Tablet PO (22:53)
[2020-11-16] MEDS: Lisinopril 10 MG Tablet PO (22:53)
[2020-11-16] MEDS: Gabapentin 300 MG Capsule PO (22:53)
[2020-11-16 23:20] LABS: Bedside Glucose 267 mg/dL (70-110)
[2020-11-17] VITALS (7 sets, daily range): BP systolic 134–162; BP diastolic 68–89; PULSE 66–78; RESP 16–18; TEMP 36.6; O2SAT 98; BMI 25.0
[2020-11-17] MEDS: Acetaminophen 500 MG Tablet 1000 MG PO ×2 (00:30→08:57)
[2020-11-17] MEDS: MELATONIN 3 MG TABLET PO (00:30)
[2020-11-17 06:46] LABS: Absolute Lymphocyte Count 2.82 X10^3/uL (0.83-4.51); Absolute Neutrophil Count 7.6 X10^3/uL (2.0-7.7); Basophil# 0.05 X10^3/uL; Basophil% 0.4 % (0-1); Eosinophil# 0.17 X10^3/uL; Eosinophils% 1.5 % (0-5); Hematocrit 33.4 % (40-54); Hemoglobin 10.4 g/dL (13.0-16.5); Lymphocyte # 2.82 X10^3/ul (0.83-4.51); Lymphocyte % 24.5 % (19-41); Mean Corp Hgb Conc 31.1 g/dL (32-36); Mean Corpuscular Hgb 26.6 pg (27.0-32.0); Mean Corpuscular Volume 85.4 fL (80-94); Mean Platelet Vol. 9.9 fl (6.2-12.0); Monocyte# 0.87 X10^3/uL; Monocyte% 7.6 % (0-10); NRBC Flagged by Analyzer 0 % (0-5); Neutrophil # 7.56 X10^3/uL (2.7-7.7); Neutrophil % 65.8 % (47-70); Platelet Count 331 K/mm3 (150-450); RBC Distribution Width CV 14.6 % (11.6-14.6); RBC Distribution Width SD 45.5 fl (35.1-43.9); Red Blood Count 3.91 M/mm3 (4.6-6.2); White Blood Count 11.5 K/mm3 (4.4-11.0)
[2020-11-17 07:14] LABS: Anion Gap 7 (5-15); BUN 17 mg/dL (7-18); Calcium,Total 8.3 mg/dL (8.5-10.1); Chloride 105 mmol/L (98-107); Creatinine, Serum 0.94 mg/dL (0.70-1.30); EST Glomerular Filtration Rate 83 mL/min (>60); Est Glom Filt Rate - Afr Amer 100 mL/min (>60); Estimated Creatinine Clearance 69.99 ml/min; Glucose 139 mg/dL (74-106); Potassium 3.9 mmol/L (3.5-5.1); Sodium Level 137 mmol/L (136-145)
[2020-11-17 08:05] LABS: Bedside Glucose 97 mg/dL (70-110)
[2020-11-17] MEDS: Aspirin 81 MG TAB.CHEW PO (08:58)
[2020-11-17] MEDS: Insulin Lispro 100 UNIT/ML INSULN.PEN 8 UNIT SC (09:19)
[2020-11-17] MEDS: Metoprolol Tartrate 50 MG Tablet PO (09:20)
[2020-11-17] MEDS: Gabapentin 300 MG Capsule PO (09:20)
[2020-11-17 11:50] LABS: Bedside Glucose 150 mg/dL (70-110)
--- NOTE | 2020-11-17 12:56 | CASEMGMT ---
Per Hui, speech therapist, pt to be set up with further speech therapy. Call to Katja at [facility] to notify that pt will be discharged today and speech therapy to be added, voices understanding. Order placed for speech therapy. Matthew MORTENSEN CM
--- NOTE | 2020-11-17 14:12 | PCM.DC ---
Discharge Instructions Diet Discharge Diet: Carb Control Diet Activity Discharge Activity: Return to Normal Activity Dressing / Incision Call your doctor if you observe: Shortness of breath, Dizziness and Chest pain Follow Up Care Test Results: Test results from this visit will be discussed in further detail at your follow-up appointment, if applicable. Discharge Plan Admission Admit Date/Time: 11/16/20 15:57 Primary Reason for Your Visit: TIA Attending Provider: Sky Wilkerson Primary Care Provider: Hospital,[facility] Instructions Additional Instructions / Restrictions: Recommend 30-day heart monitor which can be arranged by OR provider. Discharge Orders/Prescriptions Prescriptions: Continued metformin 500 MG tablet 1,000 mg PO BID RF: 0 aspirin 81 MG tablet,chewable 81 mg PO DAILY@0800 RF: 0 melatonin-pyridoxine HCl (B6) 1 EACH tablet 3 mg PO QHS RF: 0 atorvastatin 40 MG tablet 40 mg PO QHS RF: 0 cholecalciferol (vitamin D3) 50 MCG capsule 2,000 unit PO DAILY RF: 0 insulin aspart (niacinamide) 100 unit/mL (3 mL) Insulin Pen 8 unit SUBCUT TID RF: 0 rivaroxaban 20 mg Tablet 20 mg PO DAILY RF: 0 metoprolol tartrate 50 mg Tablet 50 mg PO BID RF: 0 cyclobenzaprine 10 mg Tablet 5 mg PO QHS RF: 0 Lantus U-100 Insulin 100 unit/mL Solution 22 unit SUBCUT QHS RF: 0 acetaminophen [Tylenol Extra Strength] 500 mg Tablet 1,000 mg PO Q6H PRN (Reason: Pain) RF: 0 lisinopril 10 mg Tablet 10 mg PO QHS RF: 0 gabapentin 300 mg Capsule 300 mg PO BID RF: 0 Referrals / Follow Up: Micheal Izaguirre MD [STAFF PHYSICIAN] - Within 1 Month [facility] [Primary Care Provider] - Within 2 Weeks Disposition Disposition (needs filled in before D/C Order can be placed): Home, Self Care
--- NOTE | 2020-11-17 14:17 | DS.PCM_ITS ---
Documented by User: Quiana Hanna NP, INDUSTRIAL NURSE-C 11/17/20 14:25 Providers Date of Admission: 11/16/20 Date of Discharge: 11/17/20 Primary Care Physician: [facility] Reason For Visit: RECURRENT TIA Diagnosis Discharge Diagnosis (1) TIA (transient ischemic attack): Status: Acute Code(s): G45.9 - Transient cerebral ischemic attack, unspecified Medications at Discharge Home Medications metformin 1,000 mg PO BID 05/23/18 aspirin 81 mg PO DAILY@0800 06/23/20 atorvastatin 40 mg PO QHS 06/23/20 cholecalciferol (vitamin D3) 2,000 unit PO DAILY 06/23/20 melatonin-pyridoxine HCl (B6) 3 mg PO QHS 06/23/20 insulin aspart (niacinamide) 8 unit SUBCUT TID 10/23/20 rivaroxaban 20 mg PO DAILY 10/23/20 metoprolol tartrate 50 mg PO BID 11/08/20 Lantus U-100 Insulin 22 unit SUBCUT QHS 11/16/20 acetaminophen [Tylenol Extra Strength] 1,000 mg PO Q6H PRN 11/16/20 cyclobenzaprine 5 mg PO QHS 11/16/20 gabapentin 300 mg PO BID 11/16/20 lisinopril 10 mg PO QHS 11/16/20 Hospital Course Operations None Procedures 2-D Echocardiogram Summary of Care Provided Minutes Spent on Discharge: 35 Hospital Course: Patient is a 75-year-old male admitted 11/16/2020 due to speech changes. 1. Recurrent TIA versus brainstem stroke-[facility] neurology consulted. Per neurology, patient can have a brainstem stroke with recurrent symptoms and a negative MRI. However, patient is already on maximum medical therapy with aspirin, statin and Xarelto. No further medication changes recommended at this time. Recommend 30-day event monitor which can be arranged by [facility] who is patient's primary provider. Recent discharge 11/09/2020 with TIA. Recurrent symptoms. Recent echocardiogram 11/09/2020 demonstrated an EF of 45 to 50%. Small sized echogenic mass/ LV thrombus. Head and neck CTA on admission demonstrated right internal carotid artery between 50 to 69% stenosis. Left internal carotid artery less than 50% stenosis. Carotid ultrasound showed less than 50% stenosis bilaterally. Brain MRI 11/09/2020 negative for stroke. Repeat MRI of brain negative for stroke. Repeat echo pending to reassess LV thrombus however patient is already on anticoagulation with Xarelto. [facility] 2. Leukocytosis, lactic acidosis-Suspect lactic acid reactive. No evidence of active infection. 3. Type 2 diabetes mellitus-continue Metformin. Recent hemoglobin A1c 8.2%. 4. History of atrial flutter-on Xarelto, metoprolol. 5. Hypertension-stable, continue lisinopril, metoprolol. 6. Hyperlipidemia-continue statin. 7. TRICIA-noncompliant with CPAP. 8. CAD with history of CABG-continue medical management. Physical Exam Const alert, oriented x3 and no apparent distress Orientation / Consciousness: awake, oriented to person, oriented to place and oriented to time HEENT normocephalic and moist oral mucous membranes Eyes PERRL, EOMs intact bilaterally and conjunctivae normal Neck no lymphadenopathy Resp normal respiratory effort and clear to auscultation bilaterally Cardio regular rate, regular rhythm and no murmurs Peripheral Pulses: pulses 2+ throughout GI normal to inspection, nondistended, normoactive bowel sounds, non-tender and non-distended Extremity normal to inspection Extremity Narrative: Right foot partial amputation Skin no rashes or lesions noted Lesions: no lesions Rashes: no rashes Trauma: no lacerations or abrasions Neuro CN's II-XII intact bilaterally, no focal motor deficits, no sensory deficits noted and deep tendon reflexes 2+ bilaterally Psych mental status grossly normal and affect normal Patient seen and examined prior to discharge. Physical assessment as noted above. Patient is stable for discharge with follow up recommendations as noted above. This patient was seen by ABDIRIZAK Aranda under the supervision of Dr. Wilkerson. Weight / BMI Weight Weight: 169 lb 12.095 oz Body Mass Index (BMI) 25.0 ABG / Lab / Microbiology Data Result Diagrams: 11/17/20 05:30 11/17/20 05:30 Laboratory: Laboratory Results - last 24 hr 11/16/20 14:00: PT 21.7 H, INR 2.0 11/16/20 14:05: Lactic Acid 2.9 H* 11/16/20 16:20: Troponin I High Sens 15.8 11/16/20 18:23: POC Glucose 54 L 11/16/20 19:03: POC Glucose 70 11/16/20 19:37: Lactic Acid 3.4 H* 11/16/20 22:51: POC Glucose 267 H 11/17/20 05:30: WBC 11.5 H, RBC 3.91 L, Hgb 10.4 L, Hct 33.4 L, MCV 85.4, MCH 26.6 L, MCHC 31.1 L, RDW Std Deviation 45.5 H, RDW Coeff of Fernando 14.6, Plt Count 331, MPV 9.9, Immature Gran % (Auto) 0.200, Neut % (Auto) 65.8, Lymph % (Auto) 24.5, [place] % (Auto) 7.6, Eos % (Auto) 1.5, Baso % (Auto) 0.4, Absolute Neuts (auto) 7.6, Absolute Lymphs (auto) 2.82, Nucleated RBC % 0 11/17/20 05:30: Sodium 137, Potassium 3.9, Chloride 105, Carbon Dioxide 25.0, Anion Gap 7, BUN 17, Creatinine 0.94, Estim Creat Clear Calc 69.99, Est GFR (MDRD) Af Amer 100, Est GFR (MDRD) Non-Af 83, BUN/Creatinine Ratio 18.0, Glucose 139 H, Calcium 8.3 L 11/17/20 07:53: POC Glucose 97 11/17/20 11:13: POC Glucose 150 H Radiography Diagnostic Testing: Radiology Impression Brain MRI 11/16/20 15:57 IMPRESSION: No acute disease. Chronic involutional changes. Right maxillary sinus disease. Electronically Signed: Ignacio Barber MD at 18:56 EDT , Service support , D/C Instructions Discharge Diet: Carb Control Diet Call your doctor if you observe: Shortness of breath, Dizziness and Chest pain Meaningful Use Info Meaningful Use Diagnoses (Choose all that apply): None applicable Discharge Plan Admission Admit Date/Time: 11/16/20 15:57 Primary Reason for Your Visit: TIA Attending Provider: Sky Wilkerson [facility] Provider: [facility] Instructions Additional Instructions / Restrictions: Patient Problems: Altered Health Status related to Hospitalization Patient Goals: *Optimal Level of Health *Keep Appointments *Medication Compliance *Remain SafeRecommend 30-day heart monitor which can be arranged by [facility] provider. Discharge Orders/Prescriptions Prescriptions: Continued metformin 500 MG tablet 1,000 mg PO BID RF: 0 aspirin 81 MG tablet,chewable 81 mg PO DAILY@0800 RF: 0 melatonin-pyridoxine HCl (B6) 1 EACH tablet 3 mg PO QHS RF: 0 atorvastatin 40 MG tablet 40 mg PO QHS RF: 0 cholecalciferol (vitamin D3) 50 MCG capsule 2,000 unit PO DAILY RF: 0 insulin aspart (niacinamide) 100 unit/mL (3 mL) Insulin Pen 8 unit SUBCUT TID RF: 0 rivaroxaban 20 mg Tablet 20 mg PO DAILY RF: 0 metoprolol tartrate 50 mg Tablet 50 mg PO BID RF: 0 cyclobenzaprine 10 mg Tablet 5 mg PO QHS RF: 0 Lantus U-100 Insulin 100 unit/mL Solution 22 unit SUBCUT QHS RF: 0 acetaminophen [Tylenol Extra Strength] 500 mg Tablet 1,000 mg PO Q6H PRN (Reason: Pain) RF: 0 lisinopril 10 mg Tablet 10 mg PO QHS RF: 0 gabapentin 300 mg Capsule 300 mg PO BID RF: 0 Referrals / Follow Up: Micheal Izaguirre MD [STAFF PHYSICIAN] - Within 1 Month [facility] [Primary Care Provider[facility] - Within 2 Weeks Disposition Disposition (needs filled in before D/C Order can be placed): Home, Self Care Documented by User: Dr. Sky Wilkerson DO 11/17/20 19:17 Providers Date of Admission: 11/16/20 Reason For Visit: RECURRENT TIA Medications at Discharge Home Medications metformin 1,000 mg PO BID 05/23/18 aspirin 81 mg PO DAILY@0800 06/23/20 atorvastatin 40 mg PO QHS 06/23/20 cholecalciferol (vitamin D3) 2,000 unit PO DAILY 06/23/20 melatonin-pyridoxine HCl (B6) 3 mg PO QHS 06/23/20 insulin aspart (niacinamide) 8 unit SUBCUT TID 10/23/20 rivaroxaban 20 mg PO DAILY 10/23/20 metoprolol tartrate 50 mg PO BID 11/08/20 Lantus U-100 Insulin 22 unit SUBCUT QHS 11/16/20 acetaminophen [Tylenol Extra Strength] 1,000 mg PO Q6H PRN 11/16/20 cyclobenzaprine 5 mg PO QHS 11/16/20 gabapentin 300 mg PO BID 11/16/20 lisinopril 10 mg PO QHS 11/16/20 ABG / Lab / Microbiology Data Result Diagrams: 11/17/20 05:30 11/17/20 05:30 Discharge Plan Admission Admit Date/Time: 11/16/20 15:57 Primary Reason for Your Visit: TIA Attending Provider: Sky Wilkerson [facility] Provider: [facility] Instructions Additional Instructions / Restrictions: Patient Problems: Altered Health Status related to Hospitalization Patient Goals: *Optimal Level of Health *Keep Appointments *Medication Compliance *Remain SafeRecommend 30-day heart monitor which can be arranged by [facility] provider. Discharge Orders/Prescriptions Prescriptions: Continued metformin 500 MG tablet 1,000 mg PO BID RF: 0 aspirin 81 MG tablet,chewable 81 mg PO DAILY@0800 RF: 0 melatonin-pyridoxine HCl (B6) 1 EACH tablet 3 mg PO QHS RF: 0 atorvastatin 40 MG tablet 40 mg PO QHS RF: 0 cholecalciferol (vitamin D3) 50 MCG capsule 2,000 unit PO DAILY RF: 0 insulin aspart (niacinamide) 100 unit/mL (3 mL) Insulin Pen 8 unit SUBCUT TID RF: 0 rivaroxaban 20 mg Tablet 20 mg PO DAILY RF: 0 metoprolol tartrate 50 mg Tablet 50 mg PO BID RF: 0 cyclobenzaprine 10 mg Tablet 5 mg PO QHS RF: 0 Lantus U-100 Insulin 100 unit/mL Solution 22 unit SUBCUT QHS RF: 0 acetaminophen [Tylenol Extra Strength] 500 mg Tablet 1,000 mg PO Q6H PRN (Reason: Pain) RF: 0 lisinopril 10 mg Tablet 10 mg PO QHS RF: 0 gabapentin 300 mg Capsule 300 mg PO BID RF: 0 Referrals / Follow Up: Micheal Izaguirre MD [STAFF PHYSICIAN] - Within 1 Month [facility] [Primary Care [facility]] - Within 2 Weeks Disposition Disposition (needs filled in before D/C Order can be placed): Home, Self Care Charges/Coding Addendum Addendum: Patient was seen and examined independently of Quiana Hanna today, teleneurology saw the patient today and did not recommend placing the patient on Plavix, it was recommended the patient remain on his current aspirin and X arelto. Patient has had no more episodes of expressive aphasia, there is no evidence of LV apical thrombus on his echocardiogram today, his estimated ejection fraction was 45%. On examination he appeared in good health and spirits. Vital signs as documented. Skin warm and dry and without overt rashes. Neck without JVD, neck was supple, trachea midline, thyroid was normal. Lungs clear bilaterally, normal air movement was noted. Heart exam notable for regular rhythm, normal sounds and absence of murmurs, rubs or gallops. Abdomen unremarkable and without evidence of organomegaly, masses, or abdominal aortic enlargement. Bowel sounds are present, abdomen is not distended. Extremities nonedematous, no cyanosis was noted, no clubbing was noted. Neuro: Cranial nerves II through XII are grossly intact, no focal motor deficits were noted, sensation to light touch and pinprick intact, motor exam 5/5 throughout. Psych: Patient is alert and oriented x3, he does not appear anxious or depressed, he does not appear agitated. Patient appears stable for discharge at this time, I have reviewed Quiana Hanna's discharge summary including her medical assessment and plan of care and endorse it. Visit Charges OBSV E&M: 90217 Observation care discharge
--- NOTE | 2020-11-17 15:36 | PHA.DC.MR ---
Pharmacy Service has performed discharge medication reconciliation for this patient. The patient's discharge medication list was reviewed for discrepancies and discrepancies were resolved. Home Medications metformin 1,000 mg PO BID 05/23/18 aspirin 81 mg PO DAILY@0800 06/23/20 atorvastatin 40 mg PO QHS 06/23/20 cholecalciferol (vitamin D3) 2,000 unit PO DAILY 06/23/20 melatonin-pyridoxine HCl (B6) 3 mg PO QHS 06/23/20 insulin aspart (niacinamide) 8 unit SUBCUT TID 10/23/20 rivaroxaban 20 mg PO DAILY 10/23/20 metoprolol tartrate 50 mg PO BID 11/08/20 Lantus U-100 Insulin 22 unit SUBCUT QHS 11/16/20 acetaminophen [Tylenol Extra Strength] 1,000 mg PO Q6H PRN 11/16/20 cyclobenzaprine 5 mg PO QHS 11/16/20 gabapentin 300 mg PO BID 11/16/20 lisinopril 10 mg PO QHS 11/16/20
== END 2020-11-17 14:15 | disposition home or self-care (01) ==
LOC: ED 13:13 → PCU 16:12
PROVIDERS: Nurse Practitioner Family; Admitting Provider Internal Medicine; Emergency Provider Student in an Organized Health Care Education/Training Program; Visit Provider Internal Medicine
DX: G45.9 Transient cerebral ischemic attack, unspecified (principal); R47.01 Aphasia; I50.9 Heart failure, unspecified; I48.91 Unspecified atrial fibrillation; E11.9 Type 2 diabetes mellitus without complications; I11.0 Hypertensive heart disease with heart failure; E78.5 Hyperlipidemia, unspecified; G47.33 Obstructive sleep apnea (adult) (pediatric); G89.29 Other chronic pain; Z86.73 Personal history of transient ischemic attack (TIA), and cerebral infarction without residual deficits; Z79.82 Long term (current) use of aspirin; Z79.01 Long term (current) use of anticoagulants; Z79.4 Long term (current) use of insulin; Z79.899 Other long term (current) drug therapy; Z87.891 Personal history of nicotine dependence; Z95.1 Presence of aortocoronary bypass graft; Z91.19 Patient's noncompliance with other medical treatment and regimen; I25.10 Atherosclerotic heart disease of native coronary artery without angina pectoris; D72.829 Elevated white blood cell count, unspecified; E87.2 Acidosis
CPT/HCPCS: 36415; 70496; 70498; 70551; 71045; 80048; 80053; 82962; 83605; 84484; 85025; 85610; 92523; 92610; 93005; 93308; 96361; 96374; 96375; 97802; 99218; 99285; J7030; Q9957; Q9967; A4216; C8924; G0378; J3490

== ENCOUNTER 2020-11-28 18:45 | Emergency (ER) | payer OTHER, MEDICARE, SELFPAY ==
[2020-11-17 10:22] VITALS: BMI 25.0
[2020-11-28 18:46] VITALS: BP 137/115; PULSE 76; RESP 12; TEMP 36.6; O2SAT 98; BMI 23.6
--- NOTE | 2020-11-28 19:10 | ED.VIS.LOWEX ---
HPI History of Present Illness Chief Complaint: Wound Informant: patient Narrative Narrative: 75-year-old male presents the emergency room with a bleeding wound to his left foot. He states he is not sure how he cut the foot but it began bleeding yesterday has not been able to stop. He notes that he is on Coumadin. He states that he just had his levels checked but cannot tell me what they were. He has a history of diabetes with peripheral neuropathy. [facility] Medical History Atrial fibrillation Chest pain Chronic pain Congestive heart failure (CHF) CPAP (continuous positive airway pressure) dependence Depression Diabetes Non-smoker Partial nontraumatic amputation of right foot Sleep apnea TIA (transient ischemic attack) Home Medications metformin 1,000 mg PO BID 05/23/18 [History Last Taken 11/16/20] aspirin 81 mg PO DAILY@0800 06/23/20 [History Last Taken 11/16/20] atorvastatin 40 mg PO QHS 06/23/20 [History Last Taken 11/15/20] cholecalciferol (vitamin D3) 2,000 unit PO DAILY 06/23/20 [History Last Taken 11/16/20] melatonin-pyridoxine HCl (B6) 3 mg PO QHS 06/23/20 [History Last Taken Unknown] insulin aspart (niacinamide) 8 unit SUBCUT TID 10/23/20 [History Last Taken 11/15/20] rivaroxaban 20 mg PO DAILY 10/23/20 [History Last Taken 11/15/20] metoprolol tartrate 50 mg PO BID 11/08/20 [History Last Taken 11/16/20] Lantus U-100 Insulin 22 unit SUBCUT QHS 11/16/20 [History Last Taken 11/15/20] acetaminophen [Tylenol Extra Strength] 1,000 mg PO Q6H PRN 11/16/20 [History Last Taken 11/16/20] cyclobenzaprine 5 mg PO QHS 11/16/20 [History Last Taken 11/15/20] gabapentin 300 mg PO BID 11/16/20 [History Last Taken 11/16/20] lisinopril 10 mg PO QHS 11/16/20 [History Last Taken 11/15/20] Allergy/AdvReac Type Severity Reaction Status Date / Time No Known Allergies Allergy Verified 11/28/20 18:46 Family History Mother Diabetes Father COPD (chronic obstructive pulmonary disease) Surgical History Hx of CABG Social History Smoking Status: Former smoker alcohol intake: never substance use type: does not use ROS ROS ED Constitutional Constitutional ED: Denies chills or weight loss Eyes Eyes: Denies change in vision or diplopia ENT ENT ED: Denies ear pain, rhinorrhea or sore throat Cardiovascular Cardiovascular: Denies chest pain, orthopnea, palpitations or racing heartbeat Respiratory/Chest Respiratory/Chest: Denies cough, dyspnea or orthopnea Gastrointestinal Gastrointestinal: Denies abdominal pain, diarrhea, nausea or vomiting Genitourinary Genitourinary ED: Denies dysuria, hematuria or urinary frequency Musculoskeletal Musculoskeletal: Denies arthralgias or myalgias Integumentary Reports Abrasions; Denies abscess or rash Neurologic Neurologic: Denies headache(s) or weakness Psychiatric Psychiatric: Denies anxiety, depression, suicidal ideation or suicidal thoughts Endocrine Endocrinology: Denies polydipsia, polyphagia or polyuria Allergic/Immunologic Allergic/Immunologic ED: Denies mouth swelling, tongue swelling or urticaria EXAM Physical Exam Const Vital Signs: 11/28/20 18:46 Temperature 97.8 F Temperature Source Temporal Pulse Rate 76 Respiratory Rate 12 Blood Pressure 137/115 H Blood Pressure Mean 122 Pulse Ox 98 Oxygen Delivery Method Room Air Positive well nourished and well developed General Appearance ED: well developed HEENT Reports normocephalic, head/scalp atraumatic and moist mucous membranes Eyes PERRL and EOMs intact bilaterally Neck no lymphadenopathy, supple and no JVD Resp normal respiratory effort and clear to auscultation bilaterally Cardio regular rate, regular rhythm and no murmurs GI normal to inspection, nondistended, normoactive bowel sounds and non-tender Palpation: soft Back/Spine no CVA tenderness and normal ROM Extremity normal to inspection General Extremety ED: Negative for edema General Extremity: Negative for edema Neuro oriented x3 and CN's II-XII intact bilaterally Sensorium / Orientation: alert Motor Exam: strength 5/5 throughout Psych mental status grossly normal Mood & Affect: Negative for depressed or tearful Skin no rashes or lesions noted Skin Narrative: Chronic wounds to the bilateral feet. Left second toe on the dorsum of the DIP area shows a 4 mm skin tear. There is mild bleeding. MDM MDM MDM Narrative Medical decision making narrative: Gelfoam was applied to the wound followed by the finger of a rubber glove. And then Coban was used to Discharge Plan Triage Chief Complaint: Wound ED Provider: Gal Mcdowell Dx/Rx/DC Orders Clinical Impression: Anticoagulated on Coumadin, Skin tear Instructions: ED Skin Avulsion Prescriptions: No Action metformin 500 MG tablet 1,000 mg PO BID RF: 0 aspirin 81 MG tablet,chewable 81 mg PO DAILY@0800 RF: 0 melatonin-pyridoxine HCl (B6) 1 EACH tablet 3 mg PO QHS RF: 0 atorvastatin 40 MG tablet 40 mg PO QHS RF: 0 cholecalciferol (vitamin D3) 50 MCG capsule 2,000 unit PO DAILY RF: 0 insulin aspart (niacinamide) 100 unit/mL (3 mL) Insulin Pen 8 unit SUBCUT TID RF: 0 rivaroxaban 20 mg Tablet 20 mg PO DAILY RF: 0 metoprolol tartrate 50 mg Tablet 50 mg PO BID RF: 0 cyclobenzaprine 10 mg Tablet 5 mg PO QHS RF: 0 Lantus U-100 Insulin 100 unit/mL Solution 22 unit SUBCUT QHS RF: 0 acetaminophen [Tylenol Extra Strength] 500 mg Tablet 1,000 mg PO Q6H PRN (Reason: Pain) RF: 0 lisinopril 10 mg Tablet 10 mg PO QHS RF: 0 gabapentin 300 mg Capsule 300 mg PO BID RF: 0 [facility] Care Provider: [facility] Referrals: [facility] [[facility] Care Provider] - As Needed Disposition Disposition: Home, Self Care
== END 2020-11-28 19:35 | disposition home or self-care (01) ==
PROVIDERS: Emergency Provider Emergency Medicine
DX: S91.312A Laceration without foreign body, left foot, initial encounter (principal); W45.8XXA Other foreign body or object entering through skin, initial encounter; Y93.9 Activity, unspecified; Y92.9 Unspecified place or not applicable; Y99.9 Unspecified external cause status; I48.91 Unspecified atrial fibrillation; I50.9 Heart failure, unspecified; E11.9 Type 2 diabetes mellitus without complications; Z79.01 Long term (current) use of anticoagulants; Z79.4 Long term (current) use of insulin; Z79.82 Long term (current) use of aspirin; Z79.899 Other long term (current) drug therapy; Z87.891 Personal history of nicotine dependence; Z86.73 Personal history of transient ischemic attack (TIA), and cerebral infarction without residual deficits
CPT/HCPCS: 99283

== ENCOUNTER 2020-12-04 14:15 | Emergency (ER) | payer OTHER, MEDICARE, SELFPAY ==
[2020-12-04 14:16] VITALS: BP 124/73; PULSE 69; RESP 16; TEMP 36.8; O2SAT 97; BMI 25.8
--- NOTE | 2020-12-04 14:34 | CT_ITS ---
STUDY: CT BRAIN WITHOUT CONTRAST REASON FOR EXAM: Male, 75 years old. aphasia RADIATION DOSAGE (If Supplied By Facility): CTDIvol = ( 44.99 ) mGy, DLP = ( 846.73 ) mGycm TECHNIQUE: Transaxial CT imaging of the brain was performed without administration of intravenous contrast material. Individualized dose optimization techniques were used for this CT. COMPARISON: 11/16/2020 FINDINGS: Normal soft tissue structures. Normal calvarium. There is mild cerebral atrophy with widening of the extra-axial spaces and ventricular dilatation. There are areas of decreased attenuation within the white matter tracts of the supratentorial brain, consistent with microvascular disease changes. Normal basal ganglia and thalami. Normal brainstem. Normal cerebellum. There is no intracranial hemorrhage. There are no findings of an acute ischemic infarction. Chronic mucoperiosteal thickening/polyposis of the right maxillary sinus is overall stable. CT/Brain/Head without Contrast IMPRESSION: No acute intracranial hemorrhage or mass effect. Stable exam. Electronically Signed: Kalpesh Victoria MD ([place]) at 15:28 EDT , Service support ,
--- NOTE | 2020-12-04 14:34 | EKG12_ITS ---
Test Reason : Blood Pressure : / mmHG Vent. Rate : 067 BPM Atrial Rate : 067 BPM P-R Int : 178 ms QRS Dur : 076 ms QT Int : 398 ms P-R-T Axes : 084 -27 084 degrees QTc Int : 420 ms Normal sinus rhythm Anteroseptal infarct , age undetermined Abnormal ECG Confirmed by JAMES RICE, GRETTA ([id number]), commissioning editor ELISABETH ANDERSON ([id number]) on 12/07/2020 12:48:20 PM Referred By: DEANA Confirmed By:GRETTA RAMIREZ MD
[2020-12-04 14:55] LABS: Absolute Lymphocyte Count 2.84 X10^3/uL (0.83-4.51); Absolute Neutrophil Count 6.3 X10^3/uL (2.0-7.7); Basophil# 0.04 X10^3/uL; Basophil% 0.4 % (0-1); Eosinophil# 0.31 X10^3/uL; Hematocrit 34.4 % (40-54); Hemoglobin 10.5 g/dL (13.0-16.5); Lymphocyte # 2.84 X10^3/ul (0.83-4.51); Lymphocyte % 27.4 % (19-41); Mean Corp Hgb Conc 30.5 g/dL (32-36); Mean Corpuscular Hgb 26.9 pg (27.0-32.0); Mean Platelet Vol. 9.7 fl (6.2-12.0); Monocyte# 0.81 X10^3/uL; Monocyte% 7.8 % (0-10); NRBC Flagged by Analyzer 0 % (0-5); Neutrophil # 6.34 X10^3/uL (2.7-7.7); Neutrophil % 61.1 % (47-70); Platelet Count 312 K/mm3 (150-450); RBC Distribution Width CV 15.6 % (11.6-14.6); RBC Distribution Width SD 50.2 fl (35.1-43.9); Red Blood Count 3.91 M/mm3 (4.6-6.2); White Blood Count 10.4 K/mm3 (4.4-11.0)
--- NOTE | 2020-12-04 15:00 | EX.ED.DYSGE1 ---
HPI History of Present Illness Chief Complaint: Confusion Narrative Narrative: Patient presents with difficulty speaking. He tells me he woke up without the symptoms and then sometime between 8 AM and 9 AM. It was sometime during his physical therapy. He he tells me he cannot get the right words out. He is not confused, he can tell me the time, date he is oriented to person and place. He denies headache, no chest pain or shortness of breath. He tells me he has had expressive aphasia in the past however it got somewhat worse this morning. [facility] Medical History Atrial fibrillation Chest pain Chronic pain Congestive heart failure (CHF) CPAP (continuous positive airway pressure) dependence Depression Diabetes Non-smoker Partial nontraumatic amputation of right foot Sleep apnea TIA (transient ischemic attack) Home Medications aspirin 81 mg PO DAILY@0800 06/23/20 [History Last Taken 12/04/20] atorvastatin 40 mg PO QHS 06/23/20 [History Last Taken 12/03/20] cholecalciferol (vitamin D3) 2,000 unit PO DAILY 06/23/20 [History Last Taken 12/04/20] melatonin-pyridoxine HCl (B6) 3 mg PO QHS 06/23/20 [History Last Taken 12/03/20] insulin aspart (niacinamide) 8 unit SUBCUT TID 10/23/20 [History Last Taken 12/04/20] Lantus U-100 Insulin 26 unit SUBCUT QHS 11/16/20 [History Last Taken 12/03/20] acetaminophen [Tylenol Extra Strength] 1,000 mg PO Q6H PRN 11/16/20 [History Last Taken 12/04/20] cyclobenzaprine 5 mg PO QHS 11/16/20 [History Last Taken 12/03/20] gabapentin 300 mg PO BID 11/16/20 [History Last Taken 12/04/20] lisinopril 10 mg PO QHS 11/16/20 [History Last Taken 12/03/20] diclofenac sodium 1 ea TOPICAL BID 12/04/20 [History Last Taken 12/03/20] docusate sodium 100 mg PO BID 12/04/20 [History Last Taken 12/04/20] metformin 1,000 mg PO BID 12/04/20 [History Last Taken 12/04/20] metoprolol succinate 100 mg PO DAILY 12/04/20 [History Last Taken 12/04/20] warfarin 1.5 mg PO DAILY 12/04/20 [History Last Taken 12/03/20] Allergy/AdvReac Type Severity Reaction Status Date / Time No Known Allergies Allergy Verified 11/28/20 18:46 Family History Mother Diabetes Father COPD (chronic obstructive pulmonary disease) Surgical History Hx of CABG Social History Smoking Status: Former smoker alcohol intake: never substance use type: does not use ROS ROS ED ROS Narrative Past medical history: Reviewed, significant for hypertension, hyperlipidemia, transmetatarsal amputation of the right foot, type 2 diabetes, history of expressive aphasia, TIAs in the past. Medications: Reviewed Social history: Noncontributory Review of systems: All systems negative except as indicated General: No fever Eyes: No visual changes ENT: No upper airway congestion, normal voice Neck: No neck pain Cardiovascular: No chest pain Respiratory: No shortness of breath or cough Gastrointestinal: No abdominal pain, nausea vomiting or diarrhea Genitourinary: No dysuria Musculoskeletal: Denies myalgias no difficulty with ambulation Skin: No rash Neurological: Difficulty with speech as in HPI otherwise no weakness. Psych: No recent behavioral changes Hematologic: No easy bleeding or easy bruising EXAM Physical Exam Narrative Exam Narrative: Physical exam General: Well nourished, Well developed, No Acute Distress Head: Normocephalic, Atraumatic Eyes: Conjunctiva not pale ENT: Moist mucous membranes Neck: Supple, Nontender, No lymphadenopathy Cardiovascular: Regular rate, Regular rhythm Respiratory: No distress, CTA bilaterally Abdomen: Soft, Nontender, Nondistended Back: Nontender, Normal Inspection. Negative for: CVA tenderness Extremities: Right foot shows a chronic amputation there is a slight wound but there is no erythema or calor it is not particularly painful, no signs of infection. Skin: Normal color, No rash, otherwise wound as above Neurological: Alert, Normal Strength, Normal Sensation. He answers all the correct questions on the aphasia screen on the NIH stroke scale however in talking to him more in depth and throbbing in the room there are times he wants to say a word and he cannot find the correct word. Psychological: Normal affect Const Vital Signs: 12/04/20 14:16 12/04/20 15:41 12/04/20 16:00 Temperature 98.2 F 98.2 F 98.1 F Temperature Source Oral Temporal Temporal Pulse Rate 69 63 61 Respiratory Rate 16 18 17 Blood Pressure 124/73 H 133/53 H 137/61 H Blood Pressure Mean 90 79 86 Pulse Ox 97 96 97 Oxygen Delivery Method Room Air Room Air Room Air 12/04/20 17:00 12/04/20 18:01 Temperature 98.4 F Temperature Source Temporal Pulse Rate 63 63 Respiratory Rate 14 16 Blood Pressure 129/74 H 159/74 H Blood Pressure Mean 92 102 Pulse Ox 97 97 Oxygen Delivery Method Room Air Room Air MDM MDM MDM Narrative Medical decision making narrative: Patient has a normal ED work-up. I observed he seems to be improving. I had a long discussion with the family, I also discussed the patient with stroke neurologist who had also seen him virtually in the past, Dr. Corbett. At this time he recently had unremarkable CT angiogram, MRI head which did not show any stroke, he appears well and wants to be discharged I believe this is quite reasonable. I will place him on a Holter monitor and follow-up with cardiology for arrhythmias. Lab Data Labs: Laboratory Results - last 24 hr 12/04/20 12/04/20 12/04/20 14:43 14:45 14:45 WBC 10.4 RBC 3.91 L Hgb 10.5 L Hct 34.4 L MCV 88.0 MCH 26.9 L MCHC 30.5 L RDW Std Deviation 50.2 H RDW Coeff of Fernando 15.6 H Plt Count 312 MPV 9.7 Immature Gran % (Auto) 0.300 Neut % (Auto) 61.1 Lymph % (Auto) 27.4 [place] % (Auto) 7.8 Eos % (Auto) 3.0 Baso % (Auto) 0.4 Absolute Neuts (auto) 6.3 Absolute Lymphs (auto) 2.84 Nucleated RBC % 0 PT INR Sodium 137 Potassium 4.9 Chloride 103 Carbon Dioxide 27.0 Anion Gap 7 BUN 27 H Creatinine 1.25 Estim Creat Clear Calc 52.63 Est GFR (MDRD) Af Amer 73 Est GFR (MDRD) Non-Af 60 BUN/Creatinine Ratio 21.6 H Glucose 122 H Lactic Acid 2.7 H* Calcium 8.2 L Total Bilirubin 0.40 AST 21 ALT 18 Alkaline Phosphatase 61 Troponin I High Sens 15.2 Total Protein 7.4 Albumin 3.1 L Globulin 4.3 H Albumin/Globulin Ratio 0.7 L Urine Color Urine Clarity Urine pH Ur Specific [place] Urine Protein Urine Glucose (UA) Urine Ketones Urine Occult Blood Urine Nitrite Urine Bilirubin Urine Urobilinogen Ur Leukocyte Esterase Urine RBC Urine WBC Ur Squamous Epith Cells Urine Bacteria Urine Mucus 12/04/20 12/04/20 15:20 18:15 WBC RBC Hgb Hct MCV MCH MCHC RDW Std Deviation RDW Coeff of Fernando Plt Count MPV Immature Gran % (Auto) Neut % (Auto) Lymph % (Auto) [place] % (Auto) Eos % (Auto) Baso % (Auto) Absolute Neuts (auto) Absolute Lymphs (auto) Nucleated RBC % PT 20.3 H INR 1.8 Sodium Potassium Chloride Carbon Dioxide Anion Gap BUN Creatinine Estim Creat Clear Calc Est GFR (MDRD) Af Amer Est GFR (MDRD) Non-Af BUN/Creatinine Ratio Glucose Lactic Acid Calcium Total Bilirubin AST ALT Alkaline Phosphatase Troponin I High Sens Total Protein Albumin Globulin Albumin/Globulin Ratio Urine Color Yellow Urine Clarity Clear Urine pH 5.0 Ur Specific [place] 1.020 Urine Protein 100 H Urine Glucose (UA) 250 H Urine Ketones Negative Urine Occult Blood 250 H Urine Nitrite Negative Urine Bilirubin Negative Urine Urobilinogen Normal Ur Leukocyte Esterase Negative Urine RBC 10-25 SEEN Urine WBC 0 SEEN Ur Squamous Epith Cells 0 SEEN Urine Bacteria 0 SEEN Urine Mucus 0 SEEN Radiography Diagnostic Testing: Radiology Impression Brain CT 12/04/20 14:34 IMPRESSION: No acute intracranial hemorrhage or mass effect. Stable exam. Electronically Signed: Kalpesh Victoria MD ([place]) at 15:28 EDT , Service support , Chest X-Ray 12/04/20 15:05 IMPRESSION: Stable, nonacute portable x-ray examination of the chest. Electronically Signed: Kalpesh Victoria MD ([place]) at 15:27 EDT , Service support , Discharge Plan Triage Chief Complaint: Confusion ED Provider: Homer Cruz Dx/Rx/DC Orders Clinical Impression: Difficulty with speech Instructions: ED Confusion Prescriptions: No Action aspirin 81 MG tablet,chewable 81 mg PO DAILY@0800 RF: 0 melatonin-pyridoxine HCl (B6) 1 EACH tablet 3 mg PO QHS RF: 0 atorvastatin 40 MG tablet 40 mg PO QHS RF: 0 cholecalciferol (vitamin D3) 50 MCG capsule 2,000 unit PO DAILY RF: 0 insulin aspart (niacinamide) 100 unit/mL (3 mL) Insulin Pen 8 unit SUBCUT TID RF: 0 cyclobenzaprine 10 mg Tablet 5 mg PO QHS RF: 0 Lantus U-100 Insulin 100 unit/mL Solution 26 unit SUBCUT QHS RF: 0 acetaminophen [Tylenol Extra Strength] 500 mg Tablet 1,000 mg PO Q6H PRN (Reason: Pain) RF: 0 lisinopril 10 mg Tablet 10 mg PO QHS RF: 0 gabapentin 300 mg Capsule 300 mg PO BID RF: 0 metoprolol succinate 100 mg Tablet Extended Release 24 Hr 100 mg PO DAILY RF: 0 warfarin 3 mg Tablet 1.5 mg PO DAILY RF: 0 metformin 1,000 mg Tablet 1,000 mg PO BID RF: 0 docusate sodium 100 mg Capsule 100 mg PO BID RF: 0 diclofenac sodium 1 % Gel 1 ea TOPICAL BID RF: 0 [facility] Referrals: Isauro Antony MD [STAFF PHYSICIAN] - [facility] [Primary Care Provider] - Disposition Disposition: Home, Self Care
--- NOTE | 2020-12-04 15:05 | RAD_ITS ---
STUDY: X-RAY CHEST REASON FOR EXAM: Male, 75 years old. weakness TECHNIQUE: AP COMPARISON: 11/16/2020 FINDINGS: EKG leads project over the chest. Granuloma left upper lobe is stable. No airspace consolidation. There is no demonstrated pleural abnormality. Normal size heart. Sternal wires and mediastinal surgical clips compatible with prior CABG. Normal visualized pulmonary arteries. Atherosclerosis of the aortic arch. No acute bony process. There is no demonstrated abnormality of the visualized soft tissue structures of the upper abdomen. RAD/Chest 1 View (Portable) IMPRESSION: Stable, nonacute portable x-ray examination of the chest. Electronically Signed: Kalpesh Victoria MD ([place]) at 15:27 EDT , Service support ,
[2020-12-04 15:15] LABS: ALB/GLOB Ratio 0.7 RATIO (0.9-2.4); AST(SGOT) 21 U/L (15-37); Alanine Aminotransfer ALT/SGPT 18 U/L (16-61); Albumin, Serum 3.1 g/dL (3.2-5.0); Alkaline Phosphatase 61 U/L (45-117); BUN 27 mg/dL (7-18); BUN/Creat Ratio 21.6 RATIO (10-20); Calcium,Total 8.2 mg/dL (8.5-10.1); Creatinine, Serum 1.25 mg/dL (0.70-1.30); EST Glomerular Filtration Rate 60 mL/min (>60); Est Glom Filt Rate - Afr Amer 73 mL/min (>60); Estimated Creatinine Clearance 52.63 ml/min; Globulin 4.3 g/dL (2.2-4.2); Glucose 122 mg/dL (74-106); Protein, Total 7.4 g/dL (6.4-8.2); Troponin-I HS 15.2 pg/mL (3.0-78.5)
[2020-12-04 15:16] LABS: Anion Gap 7 (5-15); Chloride 103 mmol/L (98-107); Potassium 4.9 mmol/L (3.5-5.1); Sodium Level 137 mmol/L (136-145)
[2020-12-04 15:28] LABS: Lactic Acid 2.7 mmol/L (0.4-1.9)
[2020-12-04 15:29] LABS: Bacteria 0 SEEN /hpf (None Seen); Mucous, Urine 0 SEEN /hpf (<or=2+); Squamous Epithelial Cells - UA 0 SEEN /hpf (0-5); White Blood Cells 0 SEEN /hpf (0-5)
[2020-12-04 15:35] LABS: Color, Urine Yellow (Yellow); Glucose, Dipstick 250 mg/dl (Normal); Ketone-Dipstick Negative (Negative); Leukocyte Esterase-Dipstick Negative /ul (Negative); Nitrite-Dipstick Negative (Negative); Occult Blood-Urine 250 /ul (Negative); Protein-Dipstick 100 mg/dl (Negative); Urine Bilirubin Dipstick Negative (Negative); Urine Clarity Clear (Clear); Urine Urobilinogen Normal (Normal)
[2020-12-04 15:41] VITALS: BP 133/53; PULSE 63; RESP 18; TEMP 36.8; O2SAT 96
[2020-12-04 15:42] LABS: Red Blood Cells-Urine 10-25 SEEN /hpf (0-5)
[2020-12-04 16:00] VITALS: BP 137/61; PULSE 61; RESP 17; TEMP 36.7; O2SAT 97
[2020-12-04 17:00] VITALS: BP 129/74; PULSE 63; RESP 14; TEMP 36.9; O2SAT 97
[2020-12-04 18:01] VITALS: BP 159/74; PULSE 63; RESP 16; O2SAT 97
[2020-12-04 18:32] LABS: International Normalized Ratio 1.8; Prothrombin Time (Protime)PT. 20.3 SECONDS (11.7-14.9)
[2020-12-04 18:59] LABS: Reflex Lactate? Y
[2020-12-04 20:26] LABS: Lactic Acid 1.6 mmol/L (0.4-1.9)
[2020-12-04 20:54] VITALS: BP 141/80; PULSE 67; RESP 19; O2SAT 96
== END 2020-12-04 20:54 | disposition home or self-care (01) ==
PROVIDERS: Emergency Provider Emergency Medicine
DX: R47.1 Dysarthria and anarthria (principal); I48.91 Unspecified atrial fibrillation; I11.0 Hypertensive heart disease with heart failure; I50.9 Heart failure, unspecified; E11.9 Type 2 diabetes mellitus without complications; E78.5 Hyperlipidemia, unspecified; Z95.1 Presence of aortocoronary bypass graft; Z79.82 Long term (current) use of aspirin; Z79.01 Long term (current) use of anticoagulants; Z79.4 Long term (current) use of insulin; Z79.899 Other long term (current) drug therapy; Z87.891 Personal history of nicotine dependence; Z86.73 Personal history of transient ischemic attack (TIA), and cerebral infarction without residual deficits
CPT/HCPCS: 70450; 71045; 80053; 81001; 83605; 84484; 85025; 85610; 87040; 93005; 99285; A4216

== ENCOUNTER → 2020-12-04 20:15 | Outpatient (CLI) | payer OTHER, MEDICARE, SELFPAY ==
[2020-12-04 14:16] VITALS: BMI 25.8
== END ==
PROVIDERS: Visit Provider Internal Medicine Interventional Cardiology
DX: I48.91 Unspecified atrial fibrillation (principal); I48.92 Unspecified atrial flutter
CPT/HCPCS: 93225; 93226

== ENCOUNTER 2020-12-14 21:28 | Emergency (ER) | payer OTHER, MEDICARE, SELFPAY ==
[2020-12-14 21:31] VITALS: BP 104/54; PULSE 73; RESP 18; TEMP 36.6; O2SAT 99; BMI 24.0
--- NOTE | 2020-12-14 23:01 | EKG12_ITS ---
Test Reason : DYSRHYTHMIA Blood Pressure : / mmHG Vent. Rate : 079 BPM Atrial Rate : 079 BPM P-R Int : 198 ms QRS Dur : 078 ms QT Int : 378 ms P-R-T Axes : 041 -24 089 degrees QTc Int : 433 ms Normal sinus rhythm Septal infarct , age undetermined Abnormal ECG Confirmed by JAMES RICE, GRETTA ([id number]), editor in chief ELISABETH ANDERSON ([id number]) on 12/19/2020 8:51:55 AM Referred By: PL Confirmed By:GRETTA RAMIREZ MD
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
[2020-12-14 23:37] LABS: International Normalized Ratio 1.7; Prothrombin Time (Protime)PT. 19.3 SECONDS (11.7-14.9)
[2020-12-14 23:39] LABS: Anion Gap 8 (5-15); BUN 33 mg/dL (7-18); BUN/Creat Ratio 25.8 RATIO (10-20); Calcium,Total 7.9 mg/dL (8.5-10.1); Chloride 108 mmol/L (98-107); Creatinine, Serum 1.28 mg/dL (0.70-1.30); EST Glomerular Filtration Rate 58 mL/min (>60); Est Glom Filt Rate - Afr Amer 71 mL/min (>60); Estimated Creatinine Clearance 49.73 ml/min; Glucose 177 mg/dL (74-106); Potassium 4.3 mmol/L (3.5-5.1); Sodium Level 140 mmol/L (136-145)
[2020-12-14 23:55] LABS: Absolute Lymphocyte Count 2.84 X10^3/uL (0.83-4.51); Absolute Neutrophil Count 6.3 X10^3/uL (2.0-7.7); Basophil# 0.04 X10^3/uL; Basophil% 0.4 % (0-1); Eosinophil# 0.25 X10^3/uL; Eosinophils% 2.4 % (0-5); Hematocrit 31.7 % (40-54); Hemoglobin 10.3 g/dL (13.0-16.5); Lymphocyte # 2.84 X10^3/ul (0.83-4.51); Lymphocyte % 27.7 % (19-41); Mean Corp Hgb Conc 32.5 g/dL (32-36); Mean Corpuscular Hgb 28.7 pg (27.0-32.0); Mean Corpuscular Volume 88.3 fL (80-94); Mean Platelet Vol. 10.2 fl (6.2-12.0); Monocyte# 0.79 X10^3/uL; Monocyte% 7.7 % (0-10); NRBC Flagged by Analyzer 0 % (0-5); Neutrophil # 6.26 X10^3/uL (2.7-7.7); Neutrophil % 60.9 % (47-70); Platelet Count 278 K/mm3 (150-450); RBC Distribution Width CV 16.1 % (11.6-14.6); RBC Distribution Width SD 52.4 fl (35.1-43.9); Red Blood Count 3.59 M/mm3 (4.6-6.2); White Blood Count 10.3 K/mm3 (4.4-11.0)
[2020-12-15] VITALS: BP 134/75; PULSE 78; RESP 18; O2SAT 95
[2020-12-15] MEDS: 0.9% Normal Saline 1,000 ML 1000 ML IV (00:11)
[2020-12-15 01:10] LABS: Bacteria 0 SEEN /hpf (None Seen); Mucous, Urine 0 SEEN /hpf (<or=2+); Squamous Epithelial Cells - UA 0 SEEN /hpf (0-5)
[2020-12-15 01:12] LABS: Color, Urine Yellow (Yellow); Glucose, Dipstick 50 mg/dl (Normal); Ketone-Dipstick Negative (Negative); Leukocyte Esterase-Dipstick Negative /ul (Negative); Nitrite-Dipstick Negative (Negative); Occult Blood-Urine 250 /ul (Negative); Protein-Dipstick 30 mg/dl (Negative); Urine Bilirubin Dipstick Negative (Negative); Urine Clarity Clear (Clear); Urine Urobilinogen Normal (Normal)
[2020-12-15 01:27] LABS: Red Blood Cells-Urine 10-25 SEEN /hpf (0-5); White Blood Cells 0 SEEN /hpf (0-5)
[2020-12-15 02:08] VITALS: BP 164/73; PULSE 78; RESP 16; O2SAT 97
--- NOTE | 2020-12-15 23:00 | CT_ITS ---
STUDY: CT BRAIN WITHOUT CONTRAST REASON FOR EXAM: Male, 75 years old. weakness, fall RADIATION DOSAGE (If Supplied By Facility): CTDIvol = ( 44.99 ) mGy, DLP = ( 897.35 ) mGycm TECHNIQUE: Transaxial CT imaging of the brain was performed without administration of intravenous contrast material. Individualized dose optimization techniques were used for this CT. COMPARISON: 12/04/2020. FINDINGS: Normal soft tissue structures. Normal calvarium. There is mild cerebral atrophy with widening of the extra-axial spaces and ventricular dilatation. There are areas of decreased attenuation within the white matter tracts of the supratentorial brain, consistent with microvascular disease changes. Normal basal ganglia and thalami. Normal brainstem. Normal cerebellum. There is no intracranial hemorrhage. There are no findings of an acute ischemic infarction. Normal visualized paranasal sinuses. CT/Brain/Head without Contrast IMPRESSION: Chronic changes as described. No acute intracranial hemorrhage or space-occupying lesion. Electronically Signed: Latoya Gayle MD at 0:47 EDT , Service support ,
== END 2020-12-15 02:17 | disposition home or self-care (01) ==
PROVIDERS: Emergency Provider Emergency Medicine
DX: E86.0 Dehydration (principal); I48.91 Unspecified atrial fibrillation; I50.9 Heart failure, unspecified; E11.9 Type 2 diabetes mellitus without complications; Z79.01 Long term (current) use of anticoagulants; Z79.4 Long term (current) use of insulin; Z79.82 Long term (current) use of aspirin; Z79.899 Other long term (current) drug therapy; Z87.891 Personal history of nicotine dependence; Z86.73 Personal history of transient ischemic attack (TIA), and cerebral infarction without residual deficits
CPT/HCPCS: 70450; 80048; 81001; 85025; 85610; 93005; 96360; 99285; J7030; A4216

== ENCOUNTER 2020-12-26 22:22 | Emergency (ER) | payer OTHER, MEDICARE, SELFPAY ==
[2020-12-26 22:22] VITALS: BP 151/94; PULSE 71; RESP 18; TEMP 36.6; O2SAT 98; BMI 26.3
[2020-12-26 22:27] VITALS: BMI 26.3
[2020-12-26 23:01] VITALS: BP 136/81; PULSE 69; RESP 17; O2SAT 99
--- NOTE | 2020-12-26 23:01 | EKG12_ITS ---
Test Reason : NEURO Blood Pressure : / mmHG Vent. Rate : 070 BPM Atrial Rate : 070 BPM P-R Int : 196 ms QRS Dur : 078 ms QT Int : 398 ms P-R-T Axes : 010 -30 085 degrees QTc Int : 429 ms Normal sinus rhythm Left axis deviation Septal infarct , age undetermined Abnormal ECG Confirmed by JAMES RICE, GRETTA ([id number]), food editor ELISABETH ANDERSON ([id number]) on 12/28/2020 10:06:46 AM Referred By: PL Confirmed By:GRETTA RAMIREZ MD
--- NOTE | 2020-12-26 23:01 | RAD_ITS ---
EXAM: XR CHEST, 1 VIEW : 1947 CLINICAL INDICATION: Neuro deficit, acute, stroke suspected TECHNIQUE: Frontal view of the chest. This report was created using [employer] report generation technology. COMPARISON: 12/04/2020 FINDINGS: LUNGS AND PLEURAL SPACES: Unremarkable. No consolidation or edema. No pneumothorax. No effusion. HEART: Unremarkable. Cardiac silhouette not enlarged. MEDIASTINUM: Central airways and mediastinal contour are unremarkable. BONES/JOINTS: Unremarkable. SOFT TISSUES: Unremarkable. RAD/Chest 1 View IMPRESSION: No radiographic evidence of acute cardiopulmonary disease. at 2342 Reported and signed by: Osmar Thrasher MD Electronically Signed: Osmar Thrasher MD at 23:41 EDT Tel , Service support ,
--- NOTE | 2020-12-26 23:01 | CT_ITS ---
We are attempting to reach an attending provider to discuss findings. An addendum with communication details will be sent when the communication is complete. EXAMINATION : Head CT w/out contrast HISTORY : Neuro deficit, acute, stroke suspected COMPARISON : 11/08/2020. TECHNIQUE : Multiple contiguous axial images were obtained from the skull base to the vertex without intravenous contrast. A radiation dose optimization technique was used for this scan. FINDINGS : There is no evidence for acute intracranial hemorrhage, mass effect, or midline shift. There is no extra-axial fluid collection. There are periventricular white matter changes consistent with chronic microvascular ischemic disease. There is sulcal widening and ventricular enlargement consistent with cerebral atrophy. There is normal fitzpatrick-white differentiation, without CT evidence of acute ischemia or infarct. 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 The skull base and calvarium are unremarkable. The orbits are unremarkable. Persistent near total opacification of the right maxillary sinus. The mastoid air cells are well-aerated. The soft tissues are unremarkable. CT/STROKE Brain/Head without Cont IMPRESSION: No acute intracranial abnormality. 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 Chronic involutional and ischemic changes of the brain. Chronic right maxillary sinusitis. Electronically Signed: Diogenes Hernandez MD at 23:29 EDT Tel , Service support ,
--- NOTE | 2020-12-26 23:06 | EDS_ITS ---
HPI History of Present Illness Chief Complaint: Neuro S/Sx Informant: patient Narrative Narrative: Patient presents with a episode of expressive aphasia. I am having trouble documenting the exact time this occurred but it sounds like it occurred this afternoon or this evening. No family is in the room at this time. Patient does have a history of recurrent expressive aphasia. He has had a couple admissions for this. He has had multiple MRIs. He is also had an echo that showed a small LV thrombus. He was on Xarelto but is now on Coumadin. He also takes baby aspirin. His only symptom today was expressive aphasia. He states he could understand things well. There were no weakness of extremities or balance issues. In the past he has had balance problems with these but did not have this today. It is improved but not gone. He is not back to his baseline. Nothing specifically made it better or worse. [facility] Medical History Atrial fibrillation Chest pain Chronic pain Congestive heart failure (CHF) CPAP (continuous positive airway pressure) dependence Depression Diabetes Non-smoker Partial nontraumatic amputation of right foot Sleep apnea TIA (transient ischemic attack) Home Medications aspirin 81 mg PO DAILY@0800 06/23/20 [History Last Taken 12/04/20] atorvastatin 40 mg PO QHS 06/23/20 [History Last Taken 12/03/20] cholecalciferol (vitamin D3) 2,000 unit PO DAILY 06/23/20 [History Last Taken 12/04/20] melatonin-pyridoxine HCl (B6) 3 mg PO QHS 06/23/20 [History Last Taken 12/03/20] insulin aspart (niacinamide) 8 unit SUBCUT TID 10/23/20 [History Last Taken 12/04/20] Lantus U-100 Insulin 26 unit SUBCUT QHS 11/16/20 [History Last Taken 12/03/20] acetaminophen [Tylenol Extra Strength] 1,000 mg PO Q6H PRN 11/16/20 [History Last Taken 12/04/20] cyclobenzaprine 5 mg PO QHS 11/16/20 [History Last Taken 12/03/20] gabapentin 300 mg PO BID 11/16/20 [History Last Taken 12/04/20] lisinopril 10 mg PO QHS 11/16/20 [History Last Taken 12/03/20] diclofenac sodium 1 ea TOPICAL BID 12/04/20 [History Last Taken 12/03/20] docusate sodium 100 mg PO BID 12/04/20 [History Last Taken 12/04/20] metformin 1,000 mg PO BID 12/04/20 [History Last Taken 12/04/20] metoprolol succinate 100 mg PO DAILY 12/04/20 [History Last Taken 12/04/20] warfarin 3 mg PO DAILY 12/04/20 [History Last Taken 12/03/20] enoxaparin [Lovenox] 80 mg SUBCUT Q12H 12/15/20 [History Last Taken Unknown] Allergy/AdvReac Type Severity Reaction Status Date / Time No Known Allergies Allergy Verified 12/26/20 22:26 Family History Mother Diabetes Father COPD (chronic obstructive pulmonary disease) Surgical History Hx of CABG Social History Smoking Status: Former smoker alcohol intake: never substance use type: does not use ROS ROS ED Constitutional Constitutional ED: Denies chills or fever(s) Eyes Eyes: Denies blurry vision, change in vision or diplopia ENT ENT ED: Denies rhinorrhea or sore throat Cardiovascular Cardiovascular: Denies chest pain or palpitations Respiratory/Chest Respiratory/Chest: Denies cough or dyspnea Gastrointestinal Gastrointestinal: Denies abdominal pain, nausea or vomiting Genitourinary Genitourinary ED: Denies dysuria Musculoskeletal Musculoskeletal: Denies back pain or neck pain Integumentary Denies rash Neurologic Neurologic: Reports other Details: Expressive aphasia as in history of present illness. ; Denies headache(s), paresthesias or weakness Endocrine Endocrinology: Denies polydipsia or polyuria Allergic/Immunologic Allergic/Immunologic ED: Denies urticaria EXAM Physical Exam Const Vital Signs: 12/26/20 22:22 Temperature 98 F Temperature Source Oral Pulse Rate 71 Respiratory Rate 18 Blood Pressure 151/94 H Blood Pressure Mean 113 Pulse Ox 98 Positive well nourished and well developed General Appearance ED: well developed and NAD HEENT Reports moist mucous membranes HEENT Narrative: Facial muscle strength is intact and balanced. Eyes PERRL and EOMs intact bilaterally Neck supple Resp normal respiratory effort and clear to auscultation bilaterally Cardio regular rate and regular rhythm Rate: other Other Details: Patient has a history of atrial fibrillation. His current heart rate is about 75. It does sound regular on exam. GI normal to inspection, nondistended, normoactive bowel sounds and non-tender Palpation: soft Back/Spine no CVA tenderness Extremity normal to inspection Neuro oriented x3 Neuro Narrative: Patient has an NIH of 1 for very mild expressive aphasia. Sensorium / Orientation: alert Psych mental status grossly normal Skin no rashes or lesions noted Discharge Plan Triage Chief Complaint: Neuro S/Sx ED Provider: Travon Phillips Dx/Rx/DC Orders Prescriptions: No Action aspirin 81 MG tablet,chewable 81 mg PO DAILY@0800 RF: 0 melatonin-pyridoxine HCl (B6) 1 EACH tablet 3 mg PO QHS RF: 0 atorvastatin 40 MG tablet 40 mg PO QHS RF: 0 cholecalciferol (vitamin D3) 50 MCG capsule 2,000 unit PO DAILY RF: 0 insulin aspart (niacinamide) 100 unit/mL (3 mL) Insulin Pen 8 unit SUBCUT TID RF: 0 cyclobenzaprine 10 mg Tablet 5 mg PO QHS RF: 0 Lantus U-100 Insulin 100 unit/mL Solution 26 unit SUBCUT QHS RF: 0 acetaminophen [Tylenol Extra Strength] 500 mg Tablet 1,000 mg PO Q6H PRN (Reason: Pain) RF: 0 lisinopril 10 mg Tablet 10 mg PO QHS RF: 0 gabapentin 300 mg Capsule 300 mg PO BID RF: 0 metoprolol succinate 100 mg Tablet Extended Release 24 Hr 100 mg PO DAILY RF: 0 warfarin 3 mg Tablet 3 mg PO DAILY RF: 0 metformin 1,000 mg Tablet 1,000 mg PO BID RF: 0 docusate sodium 100 mg Capsule 100 mg PO BID RF: 0 diclofenac sodium 1 % Gel 1 ea TOPICAL BID RF: 0 enoxaparin [Lovenox] 80 mg/0.8 mL Syringe 80 mg SUBCUT Q12H RF: 0 Primary Care Provider: [place], [place]
[2020-12-26 23:12] LABS: Absolute Lymphocyte Count 2.69 X10^3/uL (0.83-4.51); Absolute Neutrophil Count 5.5 X10^3/uL (2.0-7.7); Basophil# 0.07 X10^3/uL; Basophil% 0.8 % (0-1); Eosinophil# 0.21 X10^3/uL; Eosinophils% 2.3 % (0-5); Hematocrit 32.7 % (40-54); Hemoglobin 10.5 g/dL (13.0-16.5); Lymphocyte # 2.69 X10^3/ul (0.83-4.51); Lymphocyte % 29.3 % (19-41); Mean Corp Hgb Conc 32.1 g/dL (32-36); Mean Corpuscular Hgb 28.2 pg (27.0-32.0); Mean Corpuscular Volume 87.7 fL (80-94); Mean Platelet Vol. 10.1 fl (6.2-12.0); Monocyte# 0.71 X10^3/uL; Monocyte% 7.7 % (0-10); NRBC Flagged by Analyzer 0 % (0-5); Neutrophil # 5.46 X10^3/uL (2.7-7.7); Neutrophil % 59.6 % (47-70); Platelet Count 303 K/mm3 (150-450); RBC Distribution Width CV 15.6 % (11.6-14.6); Red Blood Count 3.73 M/mm3 (4.6-6.2); White Blood Count 9.2 K/mm3 (4.4-11.0)
[2020-12-26 23:20] LABS: International Normalized Ratio 1.9; Prothrombin Time (Protime)PT. 20.8 SECONDS (11.7-14.9)
[2020-12-26 23:21] LABS: Partial Thromboplast Time 39.7 Seconds (24.1-36.2)
[2020-12-26 23:25] LABS: Anion Gap 8 (5-15); BUN 26 mg/dL (7-18); BUN/Creat Ratio 22.4 RATIO (10-20); Calcium,Total 8.3 mg/dL (8.5-10.1); Chloride 107 mmol/L (98-107); Creatinine, Serum 1.16 mg/dL (0.70-1.30); EST Glomerular Filtration Rate 65 mL/min (>60); Est Glom Filt Rate - Afr Amer 79 mL/min (>60); Estimated Creatinine Clearance 56.72 ml/min; Glucose 244 mg/dL (74-106); Potassium 4.1 mmol/L (3.5-5.1); Sodium Level 140 mmol/L (136-145); Troponin-I HS 17 pg/mL (3.0-78.0)
[2020-12-26 23:31] VITALS: BP 155/72; PULSE 68; RESP 18; O2SAT 99
[2020-12-27 00:01] VITALS: BP 165/72; PULSE 67; RESP 13; O2SAT 97
[2020-12-27 00:22] VITALS: BP 165/72; PULSE 67; RESP 13; O2SAT 97
[2020-12-27 00:30] VITALS: BP 146/76; PULSE 68; RESP 18; O2SAT 99
== END 2020-12-27 01:01 | disposition home or self-care (01) ==
PROVIDERS: Emergency Provider Emergency Medicine
DX: R47.01 Aphasia (principal); I48.91 Unspecified atrial fibrillation; I50.9 Heart failure, unspecified; I51.3 Intracardiac thrombosis, not elsewhere classified; E11.9 Type 2 diabetes mellitus without complications; Z95.1 Presence of aortocoronary bypass graft; Z79.01 Long term (current) use of anticoagulants; Z79.4 Long term (current) use of insulin; Z79.82 Long term (current) use of aspirin; Z79.899 Other long term (current) drug therapy; Z87.891 Personal history of nicotine dependence; Z86.73 Personal history of transient ischemic attack (TIA), and cerebral infarction without residual deficits
CPT/HCPCS: 70450; 71045; 80048; 84484; 85025; 85610; 85730; 93005; 99285; A4216

== ENCOUNTER → 2021-02-01 06:39 | Outpatient (CLI) | payer OTHER, MEDICARE, SELFPAY ==
--- NOTE | 2021-02-01 06:45 | CT_ITS ---
STUDY: CT ABDOMEN AND PELVIS WITH CONTRAST REASON FOR EXAM: Male, 75 years old. HEMATURIA RADIATION DOSAGE (If Supplied By Facility): CTDIvol = ( 16.95 ) mGy, DLP = ( 1518.08 ) mGycm TECHNIQUE: Transaxial images were obtained from the dome of the diaphragm to the symphysis pubis without oral contrast. IV 100mL Isovue-300 was administered. Sagittal and coronal images were reconstructed. Individualized dose optimization techniques were used for this CT. COMPARISON: None. FINDINGS: The visualized lung bases are unremarkable. The visualized portions of the heart are within normal limits. Normal liver. Normal gallbladder and extrahepatic biliary system. Normal spleen. Normal pancreas. Normal bilateral adrenal glands. Normal right kidney. Normal left kidney. Normal visualized stomach. Normal small intestine. Normal colon. The appendix is visualized and appears normal. Normal abdominal aorta. Normal inferior vena cava. Normal retroperitoneum. Normal urinary bladder. Normal visualized prostate gland. There is a right-sided inguinal hernia containing adipose tissue. There are diffuse degenerative changes of the visualized lumbar spine. CT/Abdomen/Pelvis WITH Contrast IMPRESSION: No acute abnormal finding in the abdomen or pelvis. No finding to explain hematuria. Right-sided fat-containing inguinal hernia. Electronically Signed: Homer Wetzel MD at 7:59 EDT Tel , Service support ,
[2021-02-01 10:26] LABS: CREATININE FINGERSTICK 1.34 mg/dL (0.70-1.30); EGFR FINGERSTICK 41 mL/min (>60)
== END ==
DX: R31.29 Other microscopic hematuria (principal)
CPT/HCPCS: 74177; Q9967

== ENCOUNTER 2021-02-11 23:46 | Inpatient (IN) | payer OTHER, MEDICARE, SELFPAY ==
[2021-02-11 23:48] VITALS: BP 155/75; PULSE 81; RESP 16; TEMP 37.4; O2SAT 95; BMI 24.7
[2021-02-12] VITALS (15 sets, daily range): BP systolic 95–189; BP diastolic 44–111; PULSE 73–115; RESP 12–18; TEMP 36.5–37.7; O2SAT 93–97; BMI 24.0
--- NOTE | 2021-02-12 00:10 | EKG12_ITS ---
Test Reason : DYSRHYTHMIA Blood Pressure : / mmHG Vent. Rate : 082 BPM Atrial Rate : 082 BPM P-R Int : 216 ms QRS Dur : 080 ms QT Int : 362 ms P-R-T Axes : -11 -25 081 degrees QTc Int : 422 ms Sinus rhythm with 1st degree A-V block Septal infarct , age undetermined Abnormal ECG Confirmed by BINDU RICE, SAMIA ([id number]), web editor ELISABETH ANDERSON ([id number]) on 02/14/2021 9:15:18 AM Referred By: APRIL Confirmed By:SAMIA RUANO MD
--- NOTE | 2021-02-12 00:10 | CT_ITS ---
STUDY: CT BRAIN WITHOUT CONTRAST REASON FOR EXAM: Male, 75 years old. weakness RADIATION DOSAGE (If Supplied By Facility): CTDIvol = ( 44.99 ) mGy, DLP = ( 880.47 ) mGycm TECHNIQUE: Transaxial CT imaging of the brain was performed without administration of intravenous contrast material. Individualized dose optimization techniques were used for this CT. COMPARISON: No relevant priors. FINDINGS: There is no intra-/extra-axial fluid collection, mass effect, or midline shift. The turk/white matter junction is preserved. Hypoattenuation of periventricular and subcortical white matter suggestive of chronic small vessel ischemic disease. Mild diffuse parenchymal volume loss is noted. There is vascular calcification. The basal cisterns are patent. Near complete opacification of the right maxillary sinus is seen. Paranasal sinuses and mastoid air cells are clear. The calvarium is intact. CT/Brain/Head without Contrast IMPRESSION: No acute intracranial finding. MRI may be obtained if clinically indicated. Electronically Signed: Mk Leigh MD at 1:33 EDT Tel , Service support ,
--- NOTE | 2021-02-12 00:13 | EDS_ITS ---
HPI History of Present Illness Chief Complaint: General Illness Informant: patient and family Narrative Narrative: Patient evidently was in his normal state of health today until somewhere around noon. He ate lunch but was not as hungry as normal. He seemed to be just less energetic. This evening he did not want to eat dinner. He was not complaining of abdominal pain. His daughter went in the other room to get him something to eat tonight before coming in. When she came back he was on the ground near the toilet. He states he just laid himself down and did not fall but he was too weak to stand up. He was not able to get him up by herself. EMS was called. They were concerned about his weakness so they brought him in. The daughter states that he seems to have some slight short-term memory issues tonight. For example, he was told by EMS he was coming in the hospital and then he has to be just put in bed. He denies pain. He denies trouble breathing. Nothing seems to make this better or worse. Patient has had episodes like this before. He has had 5 or 6 TIAs since October. He is on Coumadin. He has had multiple evaluations and MRIs. He is thought to be on maximal therapy at this time. He has waxing and waning expressive aphasia. There is no focal reported weakness. There is been no recent fevers. He was in the hospital for a few days toward the end of January. This was approximately the through . He had had hypotension causing falls at that time. His metoprolol was cut in half and his lisinopril was stopped. They also stopped his Metformin due to lactic acidosis. He also had acute kidney injury and dehydration at the time. Nothing specifically making his symptoms better or worse. [facility] Medical History Atrial fibrillation Chest pain Chronic pain Congestive heart failure (CHF) CPAP (continuous positive airway pressure) dependence Depression Diabetes Non-smoker Partial nontraumatic amputation of right foot Sleep apnea TIA (transient ischemic attack) Home Medications aspirin 81 mg PO DAILY@0800 06/23/20 [History Last Taken 12/04/20] atorvastatin 40 mg PO QHS 06/23/20 [History Last Taken 12/03/20] cholecalciferol (vitamin D3) 2,000 unit PO DAILY 06/23/20 [History Last Taken 12/04/20] melatonin-pyridoxine HCl (B6) 3 mg PO QHS 06/23/20 [History Last Taken 12/03/20] insulin aspart (niacinamide) 8 unit SUBCUT TID 10/23/20 [History Last Taken 12/04/20] Lantus U-100 Insulin 26 unit SUBCUT QHS 11/16/20 [History Last Taken 12/03/20] acetaminophen [Tylenol Extra Strength] 1,000 mg PO Q6H PRN 11/16/20 [History Last Taken 12/04/20] gabapentin 300 mg PO BID 11/16/20 [History Last Taken 12/04/20] diclofenac sodium 1 ea TOPICAL BID 12/04/20 [History Last Taken 12/03/20] docusate sodium 100 mg PO BID 12/04/20 [History Last Taken 12/04/20] metoprolol succinate 50 mg PO DAILY 12/04/20 [History Last Taken 12/04/20] warfarin 5 mg PO DAILY 12/04/20 [History Last Taken 12/03/20] enoxaparin [Lovenox] 100 mg SUBCUT Q12H 12/15/20 [History Last Taken Unknown] Allergy/AdvReac Type Severity Reaction Status Date / Time No Known Allergies Allergy Verified 12/26/20 22:26 Family History Mother Diabetes Father COPD (chronic obstructive pulmonary disease) Surgical History Hx of CABG Social History Smoking Status: Former smoker alcohol intake: never substance use type: does not use ROS ROS ED Constitutional Constitutional ED: Denies chills or fever(s) Eyes Eyes: Denies blurry vision or change in vision ENT ENT ED: Denies rhinorrhea or sore throat Cardiovascular Cardiovascular: Denies chest pain, palpitations or racing heartbeat Respiratory/Chest Respiratory/Chest: Denies dyspnea Gastrointestinal Gastrointestinal: Denies diarrhea, nausea or vomiting Genitourinary Genitourinary ED: Denies dysuria or urinary frequency Musculoskeletal Musculoskeletal: Denies back pain, myalgias or neck pain Integumentary Denies rash Neurologic Neurologic: Reports weakness; Denies headache(s) or paresthesias Endocrine Endocrinology: Denies polydipsia or polyuria Allergic/Immunologic Allergic/Immunologic ED: Denies mouth swelling or urticaria EXAM Physical Exam Const Vital Signs: 02/11/21 23:48 02/11/21 23:54 02/12/21 01:36 Temperature 99.4 F H 99.0 F Temperature Source Oral Oral Pulse Rate 81 95 Respiratory Rate 16 16 Respiratory Effort Normal Respiratory Pattern Normal Blood Pressure 155/75 H 159/111 H Blood Pressure Mean 101 127 Pulse Ox 95 97 Oxygen Delivery Method Room Air Room Air 02/12/21 03:03 02/12/21 05:59 02/12/21 07:10 Temperature 97.8 F Temperature Source Temporal Pulse Rate 82 84 Respiratory Rate 18 12 Respiratory Effort Respiratory Pattern Blood Pressure 161/70 H 149/65 H 161/69 H Blood Pressure Mean 100 93 99 Pulse Ox 96 Oxygen Delivery Method Room Air Positive well nourished and well developed General Appearance ED: well developed and NAD; Negative for pallor HEENT Reports dry mucous membranes Mouth ED: Yes dry mucous membranes Mouth: dry mucous membranes Eyes General Eye ED: Negative for pale conjunctiva or scleral icterus Neck no JVD Chest Wall inspection of chest normal Resp normal respiratory effort and clear to auscultation bilaterally Auscultation: Negative for rales, rhonchi or wheezes Cardio regular rate and regular rhythm GI normal to inspection, nondistended, normoactive bowel sounds, non-tender and non-distended Palpation: soft Back/Spine no CVA tenderness Extremity Extremity Narrative: He has had amputation of the distal right foot. General Extremety ED: Negative for edema or tenderness General Extremity: Negative for edema Neuro oriented x3 Neuro Narrative: Patient is actually alert and oriented to person place time and current events. He is sometimes a little slow to answer. I find no focal deficit of sensation or focal weakness. He does seem just a little slow to answer questions. Sensorium / Orientation: alert Psych Psych Narrative: Mildly flat affect. Skin no rashes or lesions noted and no wounds General Skin Exam: Negative for jaundice or pallor MDM MDM MDM Narrative Medical decision making narrative: Patient's blood work shows mild anemia. INR is little bit low therapeutic at 1.8 but they did just increase his dose a day ago. Glucose is high but he did not have his evening short acting insulin. Creatinine is slightly elevated. He is given some IV fluids because he has a history of getting hypotensive when he is dehydrated. Lactate is elevated 2.4. This is been going on for a while with him for uncertain reasons. CT x-rays are negative. Had a long talk with him and his daughter. She is comfortable getting him home. But she is concerned a little bit now because he is agitated and fidgeting. I found out that ever since October he has been doing this more. She has an evaluation coming up for vascular dementia. He has been having short-term memory loss. He is making inappropriate occasionally sexually inappropriate commentary that he would never have done in the past. He seems to get a little bit of fidgety and more confused and more short-term memory loss at night more than during the day. We will let him rest. Because he is in a bright lit room with people talking. She is going to step out to get a quieter. We are going to recheck the lactate and then reassess him. She knows that he is on maximal therapy for TIAs. She is already been told by several neurologist that there is nothing new that can be done to help with that. She has a follow-up appointment with neurology in 7 days. We attempted to walk the patient. He was not stable. We got home so he used the device he was used to. He was unable to get up off the bed. He did have a tendency to lean to the left every time we tried to get him up. However there is no gross weakness on that side. He also got a little bit nauseated trying to do this. He denied any pain. This certainly could be another TIA for this patient. I am concerned with his instability and leaning to the left. He is certainly not at all safe going home. I discussed with him and his daughter regarding going into short-term rehab. They are amenable to this. I discussed the case with hospitalist and the patient will be brought into the hospital at this time. Lab Data Attestation: I reviewed the patient's lab results. Labs: Laboratory Results - last 24 hr 02/12/21 02/12/21 02/12/21 00:01 00:01 00:01 WBC 10.7 RBC 4.09 L Hgb 11.3 L Hct 35.4 L MCV 86.6 MCH 27.6 MCHC 31.9 L RDW Std Deviation 43.8 RDW Coeff of Fernando 13.9 Plt Count 279 MPV 10.2 Immature Gran % (Auto) 0.500 Neut % (Auto) 78.1 H Lymph % (Auto) 12.5 L [place] % (Auto) 8.4 Eos % (Auto) 0.1 Baso % (Auto) 0.4 Absolute Neuts (auto) 8.4 H Absolute Lymphs (auto) 1.34 Nucleated RBC % 0 PT 20.4 H INR 1.8 Sodium 134 L Potassium 4.0 Chloride 100 Carbon Dioxide 24.0 Anion Gap 10 BUN 22 H Creatinine 1.39 H Estim Creat Clear Calc 47.33 Est GFR (MDRD) Af Amer 64 Est GFR (MDRD) Non-Af 53 L BUN/Creatinine Ratio 15.8 Glucose 328 H Lactic Acid Calcium 8.7 Total Bilirubin 0.60 AST 16 ALT 18 Alkaline Phosphatase 56 Troponin I High Sens 15 Total Protein 7.7 Albumin 3.4 Globulin 4.3 H Albumin/Globulin Ratio 0.8 L Urine Color Urine Clarity Urine pH Ur Specific [place] Urine Protein Urine Glucose (UA) Urine Ketones Urine Occult Blood Urine Nitrite Urine Bilirubin Urine Urobilinogen Ur Leukocyte Esterase Urine RBC Urine WBC Ur Squamous Epith Cells Urine Bacteria Hyaline Casts Urine Mucus 02/12/21 02/12/21 02/12/21 00:01 01:15 04:04 WBC RBC Hgb Hct MCV MCH MCHC RDW Std Deviation RDW Coeff of Fernando Plt Count MPV Immature Gran % (Auto) Neut % (Auto) Lymph % (Auto) [place] % (Auto) Eos % (Auto) Baso % (Auto) Absolute Neuts (auto) Absolute Lymphs (auto) Nucleated RBC % PT INR Sodium Potassium Chloride Carbon Dioxide Anion Gap BUN Creatinine Estim Creat Clear Calc Est GFR (MDRD) Af Amer Est GFR (MDRD) Non-Af BUN/Creatinine Ratio Glucose Lactic Acid 2.4 H* 1.1 Calcium Total Bilirubin AST ALT Alkaline Phosphatase Troponin I High Sens Total Protein Albumin Globulin Albumin/Globulin Ratio Urine Color Yellow Urine Clarity Clear Urine pH 5.0 Ur Specific [place] 1.020 Urine Protein 100 H Urine Glucose (UA) 1000 H Urine Ketones 15 H Urine Occult Blood 250 H Urine Nitrite Negative Urine Bilirubin Negative Urine Urobilinogen Normal Ur Leukocyte Esterase Negative Urine RBC 25-50 SEEN Urine WBC 0-5 SEEN Ur Squamous Epith Cells 0 SEEN Urine Bacteria 1+ Hyaline Casts 0-5 SEEN Urine Mucus 1+ Radiography Diagnostic Testing: Clinical Impression(s) from Imaging Studies Brain CT 02/12/21 00:10 IMPRESSION: No acute intracranial finding. MRI may be obtained if clinically indicated. Electronically Signed: Mk Leigh MD at 1:33 EDT Tel , Service support , Chest X-Ray 02/12/21 01:00 IMPRESSION: No acute cardiopulmonary process. Electronically Signed: Mk Leigh MD at 1:36 EDT Tel , Service support , EKG Initial EKG: Comments: EKG done for syncope and read by me shows normal sinus rhythm with overall rate of 82. No ventricular ectopy. Septal Q waves. No acute ST elevation. GA interval is long showing a mild first-degree AV block. QRS duration and QTc normal. This is similar to 26 December 2020 Discharge Plan Triage Chief Complaint: General Illness ED Provider: Travon Phillips Dx/Rx/DC Orders Clinical Impression: Inability to ambulate due to multiple joints, Generalized weakness, Acidosis, lactic, Dehydration Prescriptions: No Action aspirin 81 MG tablet,chewable 81 mg PO DAILY@0800 RF: 0 melatonin-pyridoxine HCl (B6) 1 EACH tablet 3 mg PO QHS RF: 0 atorvastatin 40 MG tablet 40 mg PO QHS RF: 0 cholecalciferol (vitamin D3) 50 MCG capsule 2,000 unit PO DAILY RF: 0 insulin aspart (niacinamide) 100 unit/mL (3 mL) Insulin Pen 8 unit SUBCUT TID RF: 0 Lantus U-100 Insulin 100 unit/mL Solution 26 unit SUBCUT QHS RF: 0 acetaminophen [Tylenol Extra Strength] 500 mg Tablet 1,000 mg PO Q6H PRN (Reason: Pain) RF: 0 gabapentin 300 mg Capsule 300 mg PO BID RF: 0 metoprolol succinate 100 mg Tablet Extended Release 24 Hr 50 mg PO DAILY RF: 0 warfarin 3 mg Tablet 5 mg PO DAILY RF: 0 docusate sodium 100 mg Capsule 100 mg PO BID RF: 0 diclofenac sodium 1 % Gel 1 ea TOPICAL BID RF: 0 enoxaparin [Lovenox] 80 mg/0.8 mL Syringe 100 mg SUBCUT Q12H RF: 0 [facility] [Primary Care Provider] - Disposition Disposition: Acute Care Hospital [facility]
[2021-02-12 00:23] LABS: Absolute Lymphocyte Count 1.34 X10^3/uL (0.83-4.51); Absolute Neutrophil Count 8.4 X10^3/uL (2.0-7.7); Basophil# 0.04 X10^3/uL; Basophil% 0.4 % (0-1); Eosinophil# 0.01 X10^3/uL; Eosinophils% 0.1 % (0-5); Hematocrit 35.4 % (40-54); Hemoglobin 11.3 g/dL (13.0-16.5); Lymphocyte # 1.34 X10^3/ul (0.83-4.51); Lymphocyte % 12.5 % (19-41); Mean Corp Hgb Conc 31.9 g/dL (32-36); Mean Corpuscular Hgb 27.6 pg (27.0-32.0); Mean Corpuscular Volume 86.6 fL (80-94); Mean Platelet Vol. 10.2 fl (6.2-12.0); Monocyte% 8.4 % (0-10); NRBC Flagged by Analyzer 0 % (0-5); Neutrophil # 8.35 X10^3/uL (2.7-7.7); Neutrophil % 78.1 % (47-70); Platelet Count 279 K/mm3 (150-450); RBC Distribution Width CV 13.9 % (11.6-14.6); RBC Distribution Width SD 43.8 fl (35.1-43.9); Red Blood Count 4.09 M/mm3 (4.6-6.2); White Blood Count 10.7 K/mm3 (4.4-11.0)
[2021-02-12 00:44] LABS: International Normalized Ratio 1.8; Prothrombin Time (Protime)PT. 20.4 SECONDS (11.7-14.9)
[2021-02-12 00:53] LABS: ALB/GLOB Ratio 0.8 RATIO (0.9-2.4); AST(SGOT) 16 U/L (15-37); Alanine Aminotransfer ALT/SGPT 18 U/L (16-61); Albumin, Serum 3.4 g/dL (3.2-5.0); Alkaline Phosphatase 56 U/L (45-117); Anion Gap 10 (5-15); BUN 22 mg/dL (7-18); BUN/Creat Ratio 15.8 RATIO (10-20); Calcium,Total 8.7 mg/dL (8.5-10.1); Chloride 100 mmol/L (98-107); Creatinine, Serum 1.39 mg/dL (0.70-1.30); EST Glomerular Filtration Rate 53 mL/min (>60); Est Glom Filt Rate - Afr Amer 64 mL/min (>60); Estimated Creatinine Clearance 47.33 ml/min; Globulin 4.3 g/dL (2.2-4.2); Glucose 328 mg/dL (74-106); Protein, Total 7.7 g/dL (6.4-8.2); Sodium Level 134 mmol/L (136-145); Troponin-I HS 15 pg/mL (3.0-78.0)
--- NOTE | 2021-02-12 01:00 | RAD_ITS ---
STUDY: X-RAY CHEST REASON FOR EXAM: Male, 75 years old. cough TECHNIQUE: 1 view COMPARISON: 12/26/2020 FINDINGS: Cardiomediastinal silhouette is unremarkable. Costophrenic angles are sharp. Calcified granulomas noted in the left midlung zone. Lungs otherwise clear. The trachea is midline. There is no pneumothorax. Sternotomy wires are grossly intact. RAD/Chest 1 View (Portable) IMPRESSION: No acute cardiopulmonary process. Electronically Signed: Mk Leigh MD at 1:36 EDT Tel , Service support ,
[2021-02-12 01:08] LABS: Lactic Acid 2.4 mmol/L (0.4-1.9)
[2021-02-12 01:23] LABS: Squamous Epithelial Cells - UA 0 SEEN /hpf (0-5)
[2021-02-12 01:35] LABS: Color, Urine Yellow (Yellow); Glucose, Dipstick 1000 mg/dl (Normal); Ketone-Dipstick 15 mg/dl (Negative); Leukocyte Esterase-Dipstick Negative /ul (Negative); Nitrite-Dipstick Negative (Negative); Occult Blood-Urine 250 /ul (Negative); Protein-Dipstick 100 mg/dl (Negative); Urine Bilirubin Dipstick Negative (Negative); Urine Clarity Clear (Clear); Urine Urobilinogen Normal (Normal)
--- NOTE | 2021-02-12 01:37 | ED.RN ---
called into room by daughter bc patient is shaking all over. temp 99.0. warm blankets given. pt states he is not cold. will continue to monitor.
[2021-02-12 01:48] LABS: Red Blood Cells-Urine 25-50 SEEN /hpf (0-5); White Blood Cells 0-5 SEEN /hpf (0-5)
[2021-02-12 01:49] LABS: Bacteria 1+ /hpf (None Seen); Hyaline Cast 0-5 SEEN /lpf (0-5); Mucous, Urine 1+ /hpf (<or=2+)
--- NOTE | 2021-02-12 03:59 | ED.RN ---
Patient up in bed with some assistance to get from lying in bed, to sitting. She was able to stand with stand-by assist and ambulate to the bathroom. She used a wheeled walker, which she has at home.
[2021-02-12 04:20] LABS: Reflex Lactate? Y
[2021-02-12 04:39] LABS: Lactic Acid 1.1 mmol/L (0.4-1.9)
--- NOTE | 2021-02-12 07:40 | MRI_ITS ---
STUDY: MRI BRAIN WITHOUT CONTRAST REASON FOR EXAM: Male, 75 years old. Confusion fall nausea evaluation for acute stroke TECHNIQUE: Standardized multiplanar fat and water weighted pulse sequences were obtained. COMPARISON: Same day CT head FINDINGS: Examination is technically suboptimal due to motion artifact. Diagnostic information is available. Brain parenchyma is intact without focal lesions, mass effect, extra parenchymal fluid collections, hydrocephalus or herniation. There is moderate chronic white matter periventricular gliosis. Major vascular flow structures are intact. Craniocervical junction is unremarkable. There is a benign calcification in the falx. MRI/Brain without Contrast IMPRESSION: 1. No acute abnormality. No acute infarct. 2. Moderate white matter chronic ischemic change. Electronically Signed: Rachel Goody MD at 15:40 EDT Tel , Service support ,
[2021-02-12] MEDS: Ondansetron 4 MG/2 ML Vial IV (07:51)
[2021-02-12 08:01] LABS: Bedside Glucose 241 mg/dL (70-110)
--- NOTE | 2021-02-12 08:03 | HP.PCM.HOS_ITS ---
HPI - General HPI Narrative SALLY KELSEY, is a 75 M with history of dementia/short-term memory loss was brought by her daughter who lives with him for decreased responsiveness, weakness and fall. As per daughter, when she left her for short time he was found on the floor but as per patient he went down on his buttocks as he felt his legs are weak. After that he tried to stand up but could not but sat down on buttocks. Patient history of multiple TIAs since October 2020 and patient has appointment with [place] neurologist in 1 to 2 weeks for possible vascular related dementia. On baseline, patient has weakness on both lower legs and is on wheeled walkers. As per daughter, she denied any deviation of gait on one side but he has mild short shuffling gait at baseline. Complain of lumbar paraspinal pain mainly on movement. Patient has history of lumbar spinal stenosis. He does not have any residual aphasia, dysphagia, dysarthria, weakness or sensory deficit from previous stroke/TIA. Patient has decreased or no appetite for 1 d ay and having mild nausea but denies any vomiting or diarrhea. No abdominal pain, chest pain or shortness of breath. Patient has been vaccinated with Covid in July 2020. Triage vitals shows high blood pressure but sinus rhythm. Patient blood sugar has also been uncontrolled more than 200 as per the daughter. In ER, initial work-up does not show any acute stroke. Lactic acid is elevated but it is chronically elevated and he has been taken off Metformin for that. Patient looks dehydrated and weak. BUN/creatinine elevated. [facility] Medical History Atrial fibrillation Chest pain Chronic pain Congestive heart failure (CHF) CPAP (continuous positive airway pressure) dependence Depression Diabetes Non-smoker Partial nontraumatic amputation of right foot Sleep apnea TIA (transient ischemic attack) Home Medications aspirin 81 mg PO DAILY@0800 06/23/20 [History Last Taken 12/04/20] atorvastatin 40 mg PO QHS 06/23/20 [History Last Taken 12/03/20] cholecalciferol (vitamin D3) 2,000 unit PO DAILY 06/23/20 [History Last Taken 12/04/20] melatonin-pyridoxine HCl (B6) 3 mg PO QHS 06/23/20 [History Last Taken 12/03/20] insulin aspart (niacinamide) 8 unit SUBCUT TID 10/23/20 [History Last Taken 12/04/20] Lantus U-100 Insulin 26 unit SUBCUT QHS 11/16/20 [History Last Taken 12/03/20] acetaminophen [Tylenol Extra Strength] 1,000 mg PO Q6H PRN 11/16/20 [History Last Taken 12/04/20] gabapentin 300 mg PO BID 11/16/20 [History Last Taken 12/04/20] diclofenac sodium 1 ea TOPICAL BID 12/04/20 [History Last Taken 12/03/20] docusate sodium 100 mg PO BID 12/04/20 [History Last Taken 12/04/20] metoprolol succinate 50 mg PO DAILY 12/04/20 [History Last Taken 12/04/20] warfarin 5 mg PO DAILY 12/04/20 [History Last Taken 12/03/20] enoxaparin [Lovenox] 100 mg SUBCUT Q12H 12/15/20 [History Last Taken Unknown] Allergy/AdvReac Type Severity Reaction Status Date / Time No Known Allergies Allergy Verified 12/26/20 22:26 Family History Mother Diabetes Father COPD (chronic obstructive pulmonary disease) Surgical History Hx of CABG Social History Smoking Status: Former smoker alcohol intake: never substance use type: does not use ROS ROS Narrative Constitutional: Reports fatigue and weakness. Denies any acute change in weight. No fever HEENT: Reports systems reviewed and no addt'l complaints, except as documented Respiratory/Chest: Denies chest pain, shortness of breath at rest or with exertion Gastrointestinal: Denies coffee ground emesis, hematemesis or vomiting Genitourinary: Denies burning urination or new urinary tract symptoms Musculoskeletal: Reports joint pain and limited range of motion and weakness. On wheel walker Neurologic: Denies seizure-like activity skin: No ulcer. No rash Endocrinology: Reports systems reviewed and no addt'l complaints, except as documented Hematologic/Lymphatic: Reports systems reviewed and no addt'l complaints, except as documented Rest 12 ROS are negative except as mentioned in HPI Vital Signs Vital Signs Vital Signs: 10/10/21 23:48 02/11/21 23:54 02/12/21 01:36 Temperature 99.4 F H 99.0 F Temperature Source Oral Oral Pulse Rate 81 95 Respiratory Rate 16 16 Respiratory Effort Normal Respiratory Pattern Normal Blood Pressure 155/75 H 159/111 H Blood Pressure Mean 101 127 Pulse Ox 95 97 Oxygen Delivery Method Room Air Room Air 02/12/21 03:03 02/12/21 05:59 02/12/21 07:10 Temperature 97.8 F Temperature Source Temporal Pulse Rate 82 84 Respiratory Rate 18 12 Respiratory Effort Respiratory Pattern Blood Pressure 161/70 H 149/65 H 161/69 H Blood Pressure Mean 100 93 99 Pulse Ox 96 Oxygen Delivery Method Room Air 02/12/21 08:01 Temperature 97.7 F L Temperature Source Temporal Pulse Rate 73 Respiratory Rate 12 Respiratory Effort Respiratory Pattern Blood Pressure 189/82 H Blood Pressure Mean 117 Pulse Ox 97 Oxygen Delivery Method Room Air Weight Weight: 167 lb 15.876 oz Body Mass Index (BMI) 24.7 Physical Exam Narrative General: Alert, Oriented x3, Cooperative HEENT: Atraumatic, PERRLA, EOMI, Normocephalic Oral: Oral mucosa is dry. No Gingival or Mucosal Lesions/ Ulcerations Neck: Supple, No JVD, Negative Carotid Bruits Lungs: Air entry diminished in bilateral lung bases. No crepitation/rhonchi Cardiovascular: Regular rate, Regular Rhythm, Normal S1, Normal S2, No murmurs Abdomen: Bowel Sounds Present, Soft, Non Tender, Non-Distended : No renal angle tenderness. No suprapubic tenderness. Extremities: No edema, Capillary Refill Less than 3 Seconds Skin: No rashes, No breakdown Musculoskeletal/back: No point tenderness lumbar thoracic spine. Generalized tenderness and paravertebral muscles. Right TMA. ROM restricted. Neurological: Cranial nerves II-XII grossly intact, DTR 2+/4 and Symmetrical. Generalized slowing of response. Psych/Mental Status: Flat affect. Results Lab / Micro Data Result Diagrams: 02/12/21 00:01 02/12/21 00:01 Labs: Laboratory Results - last 24 hr 02/12/21 00:01: WBC 10.7, RBC 4.09 L, Hgb 11.3 L, Hct 35.4 L, MCV 86.6, MCH 27.6 , MCHC 31.9 L, RDW Std Deviation 43.8, RDW Coeff of Fernando 13.9, Plt Count 279, MPV 10.2, Immature Gran % (Auto) 0.500, Neut % (Auto) 78.1 H, Lymph % (Auto) 12.5 L, [place] % (Auto) 8.4, Eos % (Auto) 0.1, Baso % (Auto) 0.4, Absolute Neuts (auto) 8.4 H, Absolute Lymphs (auto) 1.34, Nucleated RBC % 0 02/12/21 00:01: PT 20.4 H, INR 1.8 02/12/21 00:01: Sodium 134 L, Potassium 4.0, Chloride 100, Carbon Dioxide 24.0, Anion Gap 10, BUN 22 H, Creatinine 1.39 H, Estim Creat Clear Calc 47.33, Est GFR (MDRD) Af Amer 64, Est GFR (MDRD) Non-Af 53 L, BUN/Creatinine Ratio 15.8, Glucose 328 H, Calcium 8.7, Total Bilirubin 0.60, AST 16, ALT 18, Alkaline Phosphatase 56, Troponin I High Sens 15, Total Protein 7.7, Albumin 3.4, Globulin 4.3 H, Albumin/Globulin Ratio 0.8 L 02/12/21 00:01: Lactic Acid 2.4 H* 02/12/21 01:15: Urine Color Yellow, Urine Clarity Clear, Urine pH 5.0, Ur Specific [place] 1.020, Urine Protein 100 H, Urine Glucose (UA) 1000 H, Urine Ketones 15 H, Urine Occult Blood 250 H, Urine Nitrite Negative, Urine Bilirubin Negative, Urine Urobilinogen Normal, Ur Leukocyte Esterase Negative, Urine RBC 25-50 SEEN, Urine WBC 0-5 SEEN, Ur Squamous Epith Cells 0 SEEN, Urine Bacteria 1+, Hyaline Casts 0-5 SEEN, Urine Mucus 1+ 02/12/21 04:04: Lactic Acid 1.1 02/12/21 07:55: POC Glucose 241 H Radiology Impression Brain CT 02/12/21 00:10 IMPRESSION: No acute intracranial finding. MRI may be obtained if clinically indicated. Electronically Signed: Mk Leigh MD at 1:33 EDT Tel , Service support , Chest X-Ray 02/12/21 01:00 IMPRESSION: No acute cardiopulmonary process. Electronically Signed: Mk Leigh MD at 1:36 EDT Tel , Service support , Assessment & Plan Assessment/Plan (1) Fall at home: QUALIFIERS: Encounter type: initial encounter Qualified Code(s): W19.XXXA - Unspecified fall, initial encounter; Y92.009 - Unspecified place in unspecified non-institutional (private) residence as the place of occurrence of the external cause (2) Mild dehydration: PLAN: This 75-year-old gentleman is brought by restricted fall, mild conf usion and generalized weakness. 1. Mild acute encephalopathy with history of TIAs, rule out stroke: Patient is being admitted in PCU. TIA order set entered. MRI brain ordered along with NIH stroke scale, PT OT and speech evaluation. BP and glucose as per stroke guidelines. If MRI brain positive, then do full stroke work-up. The patient was last admitted in November 2020 twice for TIA. At that time CTA head neck showed 50 to 69% right ICA and less than 50% in left internal carotid artery. Carotid ultrasound less than 50% bilaterally. Brain MRI 11/09/2020 and repeat MRI of brain on November 16 negative for stroke. Patient had echo in November 2020 reported as EF, small size echogenic mass in LV, LV thrombus. Anteroseptal and apical hypokinesia with mild LV systolic dysfunction. 2. lactic acidosis-: Probably due to dehydration. Patient lactic acidosis resolved. 3. Type 2 diabetes mellitus, uncontrolled with hyperglycemia. Recent hemoglobin A1c 8.2%. Repeat A1c tomorrow a.m. Accu-Chek every 6 hourly while n.p.o. and then changed to AC at bedtime when allowed oral. 4. Paroxysmal A. fib/flutter-patient on Coumadin. INR subtherapeutic. Supplemented with Lovenox. 5. Hypertension-: Elevated. Blood pressure as per stroke guidelines. Continue lisinopril, metoprolol with holding parameters 6. Hyperlipidemia-continue statin. Fasting profile tomorrow a.m. 7. TIRCIA-noncompliant with CPAP. 8. CAD with history of CABG: Patient on aspirin, beta-wm lisinopril and a statin as mentioned above. No active chest pain or shortness of breath. Troponin negative. VTE prophylaxis: As mentioned above Lovenox and Coumadin Living will/advanced directive/end of life care: Patient does have living will or advanced directive. Patient's daughter is power of bankruptcy attorney for health. Aft er discussion of benefits/risks procedures involved with full code, DNR CC arrest and DNR CC, the patient opted for full code. Patient does want artificial life support including intubation, tube feed, ventilator and/chest compression, central venous catheter, vasopressor and DC shock if needed Total time spent in [id number] encounter in discussion of advanced directive 16 minutes. Charges/Coding Visit Charges OBSV E&M: 70031 Initial observation care L3 Procedures Hospitalists Procedures: 94694 Advncd Care Plan 30 Min
[2021-02-12 10:23] LABS: Magnesium 1.8 mg/dL (1.6-2.6); Phosphorus 3.6 mg/dL (2.5-4.9)
--- NOTE | 2021-02-12 12:13 | PCS.PANDOC ---
PANDEMIC DOCUMENTATION INITIATED: Date: 02/12/2021 Time: 1211
[2021-02-12] MEDS: Insulin Lispro 100 UNIT/ML INSULN.PEN SC ×4 (12:53→22:04)
[2021-02-12 13:11] LABS: Bedside Glucose 260 mg/dL (70-110)
[2021-02-12] MEDS: Lactated Ringers 1,000 ML 125 ML IV (13:39)
[2021-02-12] MEDS: 0.9% Saline Lock 10 ML Syringe IV ×2 (13:39→16:05)
[2021-02-12] MEDS: Gabapentin 300 MG Capsule PO ×2 (15:27→22:02)
[2021-02-12] MEDS: Enoxaparin 80 MG/0.8 ML Syringe 70 MG SC (15:27)
[2021-02-12] MEDS: Famotidine 20 MG Tablet PO ×2 (15:28→22:03)
[2021-02-12] MEDS: Aspirin 81 MG TAB.CHEW PO (15:28)
[2021-02-12] MEDS: Senna/Docusate Sodium 1 Tablet 2 TABLET PO ×2 (15:28→22:02)
[2021-02-12] MEDS: Metoprolol(XL)Succ 50 MG Tablet PO (15:28)
[2021-02-12] MEDS: proCHLORPERazine 10 MG/2 ML Vial 5 MG IV (16:05)
[2021-02-12 16:46] LABS: Bedside Glucose 274 mg/dL (70-110)
[2021-02-12] MEDS: Insulin Lispro 100 UNIT/ML INSULN.PEN 8 UNIT SC (16:58)
[2021-02-12 21:16] LABS: Bedside Glucose 195 mg/dL (70-110)
[2021-02-12] MEDS: Acetaminophen 325 MG Tablet 650 MG PO (22:03)
[2021-02-12] MEDS: Atorvastatin Calcium 40 MG Tablet PO (22:03)
[2021-02-13] VITALS (18 sets, daily range): BP systolic 84–172; BP diastolic 38–79; PULSE 71–99; RESP 16–32; TEMP 36.6–38.4; O2SAT 88–97
[2021-02-13] MEDS: Enoxaparin 80 MG/0.8 ML Syringe 70 MG SC (01:03)
[2021-02-13 06:48] LABS: International Normalized Ratio 2.4; Prothrombin Time (Protime)PT. 25.6 SECONDS (11.7-14.9)
[2021-02-13 07:37] LABS: Cholesterol 72 mg/dL (200); High Density Lipoprotein 40 mg/dL; Thyroid Stim Hormone (TSH) 0.88 uIU/mL (0.358-3.74); Triglycerides 91 mg/dL; Very Low Density Lipoprotein 18 mg/dL (5-40)
[2021-02-13 08:17] LABS: Hemoglobin A1c 9.3 % (3.8-5.6)
--- NOTE | 2021-02-13 08:29 | PCM.PN.HOSP ---
Subjective Subjective Patient is mild warm, temperature 99.9, 99.6 and he is sweating on the face. sweats on the back and all over body. Room temperature is high. Denies any particular focus of infection including cough, tachypnea, burning micturition or rash. Objective Data Objective Data Vital Signs: Vital Signs Temp Pulse Resp BP Pulse Ox 97.8 F 94 16 92/38 L 88 02/13/21 02:30 02/13/21 07:00 02/13/21 02:30 02/13/21 02:30 02/13/21 07:25 Oxygen Delivery Method Room Air Weight: 165 lb 9.074 oz Body Mass Index (BMI) 24.0 Intake & Output: Intake and Output for Last 24 Hours 02/11/21 02/12/21 02/13/21 23:59 23:59 23:59 Intake Total 1530.83 / 1530.83 829.17 / 829.17 Output Total 450 / 450 250 / 250 Balance 1080.83 / 1080.83 579.17 / 579.17 Lab / Micro Data Result Diagrams: 02/12/21 00:01 02/12/21 00:01 Labs: Laboratory Results - last 24 hr 02/12/21 00:01: Phosphorus 3.6, Magnesium 1.8 02/12/21 12:27: POC Glucose 260 H 02/12/21 16:39: POC Glucose 274 H 02/12/21 20:52: POC Glucose 195 H 02/13/21 06:26: PT 25.6 H, INR 2.4 02/13/21 06:26: Triglycerides 91, Cholesterol 72, LDL Cholesterol 14, VLDL Cholesterol 18, HDL Cholesterol 40, TSH 0.88 02/13/21 06:26: Hemoglobin A1c 9.3 H Radiography Diagnostic Testing: Radiology Impression Brain MRI 02/12/21 07:40 IMPRESSION: 1. No acute abnormality. No acute infarct. 2. Moderate white matter chronic ischemic change. Electronically Signed: Rachel Godoy MD at 15:40 EDT Tel , Service support , Physical Exam Narrative General: Alert, Oriented x3, Cooperative HEENT: Atraumatic, PERRLA, EOMI, Normocephalic Oral: Oral mucosa is dry. No Gingival or Mucosal Lesions/ Ulcerations Neck: Supple, No JVD, Negative Carotid Bruits Lungs: Air entry diminished in bilateral lung bases. No crepitation/rhonchi Cardiovascular: Regular rate, Regular Rhythm, Normal S1, Normal S2, No murmurs Abdomen: Bowel Sounds Present, Soft, Non Tender, Non-Distended : No renal angle tenderness. No suprapubic tenderness. Extremities: No edema, Capillary Refill Less than 3 Seconds Skin: No rashes, No breakdown Musculoskeletal/back: No point tenderness lumbar thoracic spine. Generalized tenderness and paravertebral muscles. Right TMA. ROM restricted. Neurological: Cranial nerves II-XII grossly intact, DTR 2+/4 and Symmetrical. Generalized slowing of response. Psych/Mental Status: Flat affect. Assessment & Plan Assessment/Plan (1) Fall at home: QUALIFIERS: Encounter type: initial encounter Qualified Code(s): W19.XXXA - Unspecified fall, initial encounter; Y92.009 - Unspecified place in unspecified non-institutional (private) residence as the place of occurrence of the external cause (2) Mild dehydration: PLAN: This 75-year-old gentleman is brought by restricted fall, mild confusion and generalized weakness. 1. Mild acute encephalopathy with history of TIAs, rule out stroke: Patient is being admitted in PCU. TIA order set entered. MRI brain ordered along with NIH stroke scale, PT OT and speech evaluation. BP and glucose as per stroke guidelines. If MRI brain positive, then do full stroke work-up. The patient was last admitted in November 2020 twice for TIA. At that time CTA head neck showed 50 to 69% right ICA and less than 50% in left internal carotid artery. Carotid ultrasound less than 50% bilaterally. Brain MRI 11/09/2020 and repeat MRI of brain on November 16 negative for stroke. Patient had echo in November 2020 reported as EF, small size echogenic mass in LV, LV thrombus. Anteroseptal and apical hypokinesia with mild LV systolic dysfunction. 02/13: MRI brain negative for acute infarct. He had rest of the work-up of TIA recently as mentioned above. 2. lactic acidosis-: Probably due to dehydration. Patient lactic acidosis resolved. Patient needs to validate PT OT and speech therapy evaluation. Patient obviously was on modified diet and needs modified barium enema to further evaluate. 3. Type 2 diabetes mellitus, uncontrolled with hyperglycemia. Recent hemoglobin A1c 8.2%. Repeat A1c 9.3%. Accu-Chek every 6 hourly while n.p.o. and then changed to AC at bedtime when allowed oral. 4. Paroxysmal A. fib/flutter-patient on Coumadin. INR subtherapeutic. Supplemented with Lovenox. Still: INR therapeutic. Lovenox discontinued 5. Hypertension-: 02/03: Blood pressure is on lower side, 89 systolic. Last night was also 25/44, 92/38 patient is sweating. 1 L Ringer lactate bolus and then 100 mill per hour. Recheck blood pressure after 1 hour. Hold lisinopril, metoprolol 6. Hyperlipidemia-continue statin. Fasting profile LDL 14, triglyceride 91. TSH 0.88 7. TRICIA-noncompliant with CPAP. 8. CAD with history of CABG: Patient on aspirin, beta-wm lisinopril and a statin as mentioned above. No active chest pain or shortness of breath. Troponin negative. VTE prophylaxis: As mentioned above Lovenox and Coumadin Living will/advanced directive/end of life care: Patient does have living will or advanced directive. Patient's daughter is power of trade mark attorney for health. After discussion of benefits/risks procedures involved with full code, DNR CC arrest and DNR CC, the patient opted for full code. Patient does want artificial life support including intubation, tube feed, ventilator and/chest compression, central venous catheter, vasopressor and DC shock if needed Total time spent in [id number] encounter in discussion of advanced directive 16 minutes. Charges/Coding Visit Charges Inpatient E&M: 23290 Subs Hosp L2
--- NOTE | 2021-02-13 08:48 | WOUNDNOTE ---
wound photo: right plantar foot
[2021-02-13] MEDS: Insulin Lispro 100 UNIT/ML INSULN.PEN SC ×2 (08:54→16:57)
[2021-02-13] MEDS: Insulin Lispro 100 UNIT/ML INSULN.PEN 8 UNIT SC ×3 (08:54→16:56)
[2021-02-13 09:00] LABS: Bedside Glucose 166 mg/dL (70-110)
[2021-02-13] MEDS: Lactated Ringers 1,000 ML 1000 ML IV (09:22)
[2021-02-13] MEDS: Famotidine 20 MG Tablet PO ×2 (09:32→22:12)
[2021-02-13] MEDS: Senna/Docusate Sodium 1 Tablet 2 TABLET PO (09:32)
[2021-02-13] MEDS: Aspirin 81 MG TAB.CHEW PO (09:32)
[2021-02-13] MEDS: Lactated Ringers 1,000 ML 100 ML IV ×2 (10:27→15:01)
--- NOTE | 2021-02-13 10:45 | CASEMGMT ---
Addendum entered by Dariel Armstrong 02/13/21 15:42: 1045: VALDEZ form explained to dtr re: Observation status for treatment of fall, ? TIA. Explained hospitalization will be paid per his insurance policy for Outpatient billing and condition will continue to be evaluated for Inpt necessity. Also let her know that [facility] sends paper in the billing packet with their phone number if questions arise. Dtr verbalizes understanding and does not have further questions. Form signed, copy made and placed in chart, and original given to dtr. Original Note: RN CM ROASTER OPERATOR CM to room for initial transition planning/care coordination assessment. RN JESÚS introduced self and role at [facility]. Pt resting in bed, groggy. Daughter, Ac, @ bedside and the following information obtained from her. Care providers, pharmacy, and demographics verified/updated at this time. PCP: [facility]- has a virtual appt there 02/22. Specialists: Neurologist @ [facility]. Pt has an appt in the next 1-2 weeks for possible vascular related dementia. Director Of Government Sales @ [facility]. Dr Chavez--Diesel Mechanic Apprentice @ [facility]. Preferred Pharmacy: [facility] Retail Insurance: [place], [place] [facility] Prescription Benefit: Yes Living Will/HPOA: Pt does not have LW. Has HPOA, who is his dtr, Adelina. Copy of POA is on file @ [facility]. LNOK: dtr/ROBE Ac Living Arrangements: Pt owns his own home, but has been living w/Ac, who is a nurse aide, since October d/t decline in ability to do ADL's after a hospitalization. Home is a 2-story, SU. Bed is in the living room on main floor and 1/2 bath on main floor. Pt, @ baseline, nhi baths himself daily (w/set-up assist), and dtr will assist him upstairs to shower at times. Ac manages all home mgmt tasks, medications and appts. Transportation: dtr DME: has the following DME: w/c, rollator, glucometer, BP cuff, CPAP (non-compliant) She states [facility]. She states [facility] will also work w/her landlord to help w/getting ramp entrance. She states no need for further DME at this time. HHC/SNF: [facility] and [facility] HHC in the past. Dtr states, depending on pt's strength/ability, she would be amenable to pt going to a SNF @ d/c. PLAN: TBD. PT/OT evals pending. Dtr states, if SNF is needed, would prefer for pt to go to a SNF under [facility] benefits, and her 1st choice is [facility] [place]. JOSE LUIS, Claudia Andino, made aware. If pt able to return home, she would be agreeable to HHC. CM to follow. Frederic GARZAN RN CM
[2021-02-13 11:25] LABS: Bedside Glucose 132 mg/dL (70-110)
[2021-02-13] MEDS: Lactated Ringers 1,000 ML 999 ML IV (12:05)
[2021-02-13 12:24] LABS: Absolute Lymphocyte Count 0.77 X10^3/uL (0.83-4.51); Absolute Neutrophil Count 12.1 X10^3/uL (2.0-7.7); Basophil# 0.03 X10^3/uL; Basophil% 0.2 % (0-1); Hematocrit 30.9 % (40-54); Hemoglobin 10.3 g/dL (13.0-16.5); Lymphocyte # 0.77 X10^3/ul (0.83-4.51); Lymphocyte % 5.6 % (19-41); Mean Corp Hgb Conc 33.3 g/dL (32-36); Mean Corpuscular Hgb 28.1 pg (27.0-32.0); Mean Corpuscular Volume 84.4 fL (80-94); Monocyte# 0.84 X10^3/uL; Monocyte% 6.1 % (0-10); NRBC Flagged by Analyzer 0 % (0-5); Neutrophil # 12.05 X10^3/uL (2.7-7.7); Neutrophil % 87.7 % (47-70); POSITIVE MORPHOLOGY YES; Platelet Count 202 K/mm3 (150-450); RBC Distribution Width CV 14.4 % (11.6-14.6); RBC Distribution Width SD 44.5 fl (35.1-43.9); Red Blood Count 3.66 M/mm3 (4.6-6.2); White Blood Count 13.7 K/mm3 (4.4-11.0)
[2021-02-13 12:27] LABS: Differential Indicated SCAN CRITERIA MET
[2021-02-13 12:31] LABS: Anion Gap 11 (5-15); BUN 36 mg/dL (7-18); BUN/Creat Ratio 18.8 RATIO (10-20); Calcium,Total 8.5 mg/dL (8.5-10.1); Chloride 101 mmol/L (98-107); Creatinine, Serum 1.92 mg/dL (0.70-1.30); EST Glomerular Filtration Rate 37 mL/min (>60); Est Glom Filt Rate - Afr Amer 44 mL/min (>60); Estimated Creatinine Clearance 34.27 ml/min; Glucose 173 mg/dL (74-106); Magnesium 1.6 mg/dL (1.6-2.6); Potassium 3.9 mmol/L (3.5-5.1); Sodium Level 135 mmol/L (136-145)
[2021-02-13 12:32] LABS: Phosphorus 3.5 mg/dL (2.5-4.9)
--- NOTE | 2021-02-13 14:14 | CASEMGMT ---
Addendum entered by Dariel Armstrong 02/13/21 14:29: Confirmation received that fax to [place] transfer center went thru successfully. Call received back from Lori @ [place] [facility] line. She confirms she received the VM and is awaiting receipt of faxed clinical information. Original Note: BALBINA ESPINOSA NOTE: Pt out of room at this time. BALBINA ESPINOSA spoke w/pt's daughter, Ac. She states pt woke up some and she was able to talk w/him and she discussed [facility]. She states pt does wish to transfer, if a bed is available. Call placed to [place] transfer center and VM left on transfer line w/call back # to this BALBINA ESPINOSA, if return call is made today. Also left BALBINA Cabrales CM, # if return call is made tomorrow. Clinical packet faxed to [place] [facility] at this time. Frederic CHAIDEZ RN, CM
--- NOTE | 2021-02-13 14:48 | ST.MBS ---
Modified Barium Swallow - Patient Information Study Date: 02/13/21 Study Time: 13:40 Direct Billable Minutes: 110 Total Minutes procedure & reportin Diagnosis: Dysphagia R13.10 Referring Physician: Conrad Tirado Reason for Referral: Pt. was referred for objective videofluoroscopy study of the swallow due to concerns with aspiration and swallowing difficulty. Pt. was scheduled for an outpatient MBSs at the [facility] on 02/14/21, but due to his current hospital stay, it was unclear if he would be able to complete scheduled MBSs at the [place]. Medical History: SALLY KELSEY, is a 75 M with history of dementia/short-term memory loss was brought by her daughter who lives with him for decreased responsiveness, weakness and fall. As per daughter, when she left her for short time he was found on the floor but as per patient he went down on his buttocks as he felt his legs are weak. After that he tried to stand up but could not but sat down on buttocks. 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 On baseline, patient has weakness on both lower legs and is on wheeled walkers. As per daughter, she denied any deviation of gait on one side but he has mild short shuffling gait at baseline. Complain of lumbar paraspinal pain mainly on movement. Patient has history of lumbar spinal stenosis. He does not have any residual aphasia, dysphagia, dysarthria, weakness or sensory deficit from previous stroke/TIA. Patient has decreased or no appetite for 1 day and having mild nausea but denies any vomiting or diarrhea. No abdominal pain, chest pain or shortness of breath. Patient has been vaccinated with Covid in July 2020. Triage vitals shows high blood pressure but sinus rhythm. Patient blood sugar has also been uncontrolled more than 200 as per the daughter. In ER, initial work-up does not show any acute stroke. Lactic acid is elevated but it is chronically elevated and he has been taken off Metformin for that. Patient looks dehydrated and weak. BUN/creatinine elevated. PMH includes Atrial fibrillation, Chest pain, Chronic pain, Congestive heart failure (CHF), CPAP (continuous positive airway pressure) dependence, Depression, Diabetes, Non-smoker, Partial nontraumatic amputation of right foot, Sleep apnea, TIA (transient ischemic attack) Current Diet Ordered: Soft and Bite sized (IDDSI 6), Thin (IDDSI 0) Dentition: WNL, Natural Teeth Respiratory Status: Oxygenating on 2L/M nasal cannula - Penetration-Aspiration Scale Penetration-Aspiration Scale: OBJECTIVE ASSESSMENT OF SWALLOW FUNCTION (QUANTITATIVE ? PER TRIAL): PENETRATION / ASPIRATION SCALE (MILNER): 1 = does not enter airway 2 = enters airway/above vocal folds/ejected 3 = enters airway/above vocal folds/not ejected 4 = enters airway/contacts vocal folds/ejected 5 = enters airway/contacts vocal folds/not ejected 6 = enters airway/below vocal folds/ejected 7 = enters airway/below vocal folds/not ejected despite effort 8 = enters airway/below vocal folds/no effort - Penetration-Aspiration Scale Score Thin Liquid via teaspoon Result: 1= does not enter airway Thin Liquid via teaspoon Trial 2 Result: 2= enter airway/above vocal folds/ejected Thin Liquid via small single sip from cup Result: 4= enters airway/contacts vocal folds/ejected Thin Liquid via sequential sips from cup Result: 8= enters airway/below vocal folds/no effort Thin Liquid via single sip from straw Result: 8= enters airway/below vocal folds/no effort [place] Thick Liquid via small single sip from cup Result: 5= enters airways/contacts vocal folds/not ejected Honey Thick Liquid via small single sip from cup Result: 2= enter airway/above vocal folds/ejected Pudding via teaspoon Result: 3= enters airways/above vocal folds/not ejected Pudding via teaspoon Trial 2 Result: 2= enter airway/above vocal folds/ejected Cookie via teaspoon Result: 2= enter airway/above vocal folds/ejected [place] Thick Liquid via small single sip from cup Trial 2 Result: 2= enter airway/above vocal folds/ejected [place] Thick Liquid via teaspoon Result: 1= does not enter airway Honey Thick Liquid via small single sip from cup Trial 2 Result: 1= does not enter airway - Oral Phase Labial Seal: No Labial Escape Tongue Control During Bolus Hold: Cohesive bolus between tongue to palatal seal Bolus Preparation/Mastication: Slow prolonged chewing/mashing with complete recollection Bolus Transport/Lingual Motion: Delayed initiation of tongue motion Oral Residue: Trace residue lining oral structures - Pharyngeal Phase Initiation of Pharyngeal Swallow: Bolus head in pyriforms - with thin and nectar, bolus head in the valleculae with cookie Soft Palate Elevation: Trace column of contrast/air between soft palate and pharyngeal wall Laryngeal Elevation: Comp. Superior move thyroid cart w/comp. apprx arytenoid cart-epig pet Anterior Hyoid Excursion: Partial anterior movement Epiglottic Movement: Complete inversion Laryngeal Vestibule Closure at Height of Swallow: Incomplete; narrow column of air/contrast in laryngeal vestibule Pharyngeal Stripping Wave: Present - complete Pharyngoesophageal Segment Opening: Complete distension and complete duration; no obstruction of flow Tongue Base Retraction: Trace column of contrast between tongue base & post. pharyngeal wall Pharyngeal Residue: Collection of residue within or on pharyngeal structures - not consistent and varied with trials - Esophageal Phase Esophageal Clearance: Esophageal retention - minimal - Treatment Strategies Effects of treatment strategies attemped:: Pt. prompted for second swallow and delayed initiation of strategy. Pt. required max verbal prompts for strategy implementation - Diagnosis/Impression Diagnosis: Moderate to severe oropharyngeal dysphagia (R13.12) Impression: Pt. presents with oral phase dysphagia characterized by slow mastication and decreased anterior to posterior oral transfer resulting in trace oral residuals. Pt. presents with pharyngeal phase dysphagia characterized by delayed initiation of swallow, decreased soft palate elevation, decreased tongue base retraction, decreased anterior hyoid movement and decreased laryngeal vestibule closure resulting in posterior pre-spill into the pharynx to the level of valleculae and pyriform sinuses, inconsistent pharyngeal residuals, penetration and aspiration. Aspiration was observed with thin liquids via sequential cup sips and straw sips. Penetration was observed with all consistencies, but severity of penetration was decreased with thin liquids via tsp, nectar thick liquids via tsp, honey thick liquids, pudding and cookie. All penetration and aspiration was silent and pt. presented with no overt throat clearing or coughing. - Recommendations Diet: Mechanical Soft Textures - soft and bite sized (IDDSI 6) , Honey-thick Liquids - IDDSI 3 Comment: Trial nectar thick liquids (IDDSI 2) via tsp with LAUNDRY EQUIPMENT OPERATOR; LAUNDRY EQUIPMENT OPERATOR to assess appropriateness of Melendrez Free Water Protocol via tsp amounts; continue to monitor respiratory status Compensatory Strategies: Small Bites, Small Sips, No Straws, Slow Rate, Feed only when alert, Multiple Swallows, Alternate bites/solids and sips/liquids, Remain sitting upright for 30 minutes after PO intake Supervision: 1:1 Close Supervision Recommend Repeat Modified Barium Swallow: TBD - with change in swallow function Need for Skilled Speech Therapy Services: Yes Comment: Further ST services in recommended to train pt. and family in recommended diet textures, safe swallow strategies and to determine appropriateness of of FFWP due to hx of dehydration Education Completed: 1. Described result of evaluation., 2. Pt understands evaluation & agrees with goals and treatment plan. - Status Active ST Patient: Active - Contact Information [facility] Speech Therapy:: [facility] [address] [place], [place] [id number] Christy Key M.A., CCC-LAUNDRY EQUIPMENT OPERATOR [email or web address] 02/13/21
[2021-02-13] MEDS: Midodrine HCl 5 MG Tablet 10 MG PO (15:00)
[2021-02-13 17:16] LABS: Bedside Glucose 292 mg/dL (70-110)
[2021-02-13] MEDS: LORazepam 2 MG/ML Syringe 1 MG IV (17:35)
[2021-02-13] MEDS: Atorvastatin Calcium 40 MG Tablet PO (22:12)
[2021-02-13] MEDS: Gabapentin 300 MG Capsule PO (22:12)
[2021-02-13] MEDS: Acetaminophen 325 MG Tablet 650 MG PO (22:20)
--- NOTE | 2021-02-13 22:51 | RAD_ITS ---
STUDY: X-RAY CHEST REASON FOR EXAM: Male, 75 years old. Fever TECHNIQUE: Single AP portable view of the chest. COMPARISON: 02/12/2021 FINDINGS: The lungs are clear and expanded. There is no demonstrated pleural abnormality. Sternal cerclage wires are present from a prior sternotomy. Normal mediastinum and ibeth. Normal visualized pulmonary arteries. Normal visualized aortic arch and descending thoracic aorta. Normal visualized thoracic spine. Normal visualized ribs, clavicles, and shoulders. There is no demonstrated abnormality of the visualized soft tissue structures of the upper abdomen. RAD/Chest 1 View (Portable) IMPRESSION: Normal x-ray examination of the chest. Electronically Signed: Pramod Blanchard DO at 0:47 EDT Tel , Service support ,
[2021-02-13 23:23] LABS: Color, Urine Yellow (Yellow); Glucose, Dipstick 1000 mg/dl (Normal); Ketone-Dipstick 5 mg/dl (Negative); Leukocyte Esterase-Dipstick Negative /ul (Negative); Mucous, Urine 0 SEEN /hpf (<or=2+); Nitrite-Dipstick Negative (Negative); Occult Blood-Urine 250 /ul (Negative); Protein-Dipstick 100 mg/dl (Negative); Squamous Epithelial Cells - UA 0 SEEN /hpf (0-5); Urine Bilirubin Dipstick Negative (Negative); Urine Clarity Sl. Cloudy (Clear); Urine Urobilinogen Normal (Normal); White Blood Cells 0 SEEN /hpf (0-5)
[2021-02-13 23:51] LABS: Bedside Glucose 246 mg/dL (70-110)
[2021-02-14] VITALS (17 sets, daily range): BP systolic 89–147; BP diastolic 46–81; PULSE 82–111; RESP 15–28; TEMP 36.2–38.2; O2SAT 93–97
[2021-02-14 00:05] LABS: Amorphous Sediment 2+; Bacteria 2+ /hpf (None Seen); Red Blood Cells-Urine 25-50 SEEN /hpf (0-5)
[2021-02-14 00:06] LABS: Lactic Acid 1.6 mmol/L (0.4-1.9)
--- NOTE | 2021-02-14 00:59 | NURSING ---
pt st cathed and covid swab done
[2021-02-14 01:18] LABS: Mucous, Urine 0 SEEN /hpf (<or=2+); Squamous Epithelial Cells - UA 0 SEEN /hpf (0-5)
[2021-02-14 01:27] LABS: Absolute Lymphocyte Count 0.57 X10^3/uL (0.83-4.51); Basophil# 0.02 X10^3/uL; Basophil% 0.1 % (0-1); Hematocrit 31.3 % (40-54); Lymphocyte # 0.57 X10^3/ul (0.83-4.51); Lymphocyte % 3.8 % (19-41); Mean Corp Hgb Conc 31.9 g/dL (32-36); Mean Corpuscular Hgb 27.4 pg (27.0-32.0); Mean Corpuscular Volume 85.8 fL (80-94); Mean Platelet Vol. 10.8 fl (6.2-12.0); Monocyte# 1.14 X10^3/uL; Monocyte% 7.7 % (0-10); NRBC Flagged by Analyzer 0 % (0-5); Neutrophil # 13.02 X10^3/uL (2.7-7.7); Neutrophil % 87.5 % (47-70); POSITIVE DIFFERENTIAL YES; POSITIVE MORPHOLOGY YES; Platelet Count 224 K/mm3 (150-450); RBC Distribution Width CV 14.5 % (11.6-14.6); RBC Distribution Width SD 45.7 fl (35.1-43.9); Red Blood Count 3.65 M/mm3 (4.6-6.2); White Blood Count 14.9 K/mm3 (4.4-11.0)
[2021-02-14 01:28] LABS: Differential Indicated SCAN CRITERIA MET
[2021-02-14 01:40] LABS: Color, Urine Yellow (Yellow); Glucose, Dipstick 250 mg/dl (Normal); Ketone-Dipstick 5 mg/dl (Negative); Leukocyte Esterase-Dipstick 25 /ul (Negative); Nitrite-Dipstick Negative (Negative); Occult Blood-Urine 250 /ul (Negative); Protein-Dipstick 100 mg/dl (Negative); Urine Bilirubin Dipstick Negative (Negative); Urine Clarity Sl. Cloudy (Clear); Urine Urobilinogen 1 mg/dl (Normal)
[2021-02-14 01:55] LABS: Differential Comment SCANNED
[2021-02-14 02:04] LABS: Amorphous Sediment 2+; Bacteria 2+ /hpf (None Seen); Red Blood Cells-Urine 5-10 SEEN /hpf (0-5); White Blood Cells 0-5 SEEN /hpf (0-5)
--- NOTE | 2021-02-14 03:59 | PCM.PN.BLA ---
Progress Note Patient with fever. Nurse reports crackles in lungs for which nurse attributes to patient previously receiving IV fluids boluses. Nurse reported patient appears confused. White counts slightly elevated above previous. Blood pressure is marginal at 89/52. lactic acid is 1.6. Urine with 2+ bacteria unchanged and stable pyuria. Chest x-ray is clear. Unclear of any definite source of infection. However will start patient on Zosyn.
[2021-02-14 04:31] LABS: Bedside Glucose 205 mg/dL (70-110)
[2021-02-14] MEDS: 0.9% Saline Lock 10 ML Syringe IV ×2 (04:50→15:02)
[2021-02-14 07:11] LABS: Absolute Lymphocyte Count 0.94 X10^3/uL (0.83-4.51); Basophil# 0.02 X10^3/uL; Basophil% 0.1 % (0-1); Hematocrit 34.1 % (40-54); Hemoglobin 11.1 g/dL (13.0-16.5); Lymphocyte # 0.94 X10^3/ul (0.83-4.51); Lymphocyte % 6.5 % (19-41); Mean Corp Hgb Conc 32.6 g/dL (32-36); Mean Corpuscular Volume 85.9 fL (80-94); Monocyte# 1.33 X10^3/uL; Monocyte% 9.2 % (0-10); NRBC Flagged by Analyzer 0 % (0-5); Neutrophil # 12.04 X10^3/uL (2.7-7.7); Neutrophil % 83.1 % (47-70); POSITIVE MORPHOLOGY YES; Platelet Count 194 K/mm3 (150-450); RBC Distribution Width CV 14.3 % (11.6-14.6); RBC Distribution Width SD 45.1 fl (35.1-43.9); Red Blood Count 3.97 M/mm3 (4.6-6.2); White Blood Count 14.5 K/mm3 (4.4-11.0)
[2021-02-14 07:15] LABS: Differential Indicated SCAN CRITERIA MET
[2021-02-14 07:24] LABS: International Normalized Ratio 2.3; Prothrombin Time (Protime)PT. 24.1 SECONDS (11.7-14.9)
[2021-02-14 07:31] LABS: Anion Gap 9 (5-15); BUN 34 mg/dL (7-18); BUN/Creat Ratio 21.9 RATIO (10-20); Calcium,Total 8.3 mg/dL (8.5-10.1); Chloride 102 mmol/L (98-107); Creatinine, Serum 1.55 mg/dL (0.70-1.30); EST Glomerular Filtration Rate 47 mL/min (>60); Est Glom Filt Rate - Afr Amer 57 mL/min (>60); Estimated Creatinine Clearance 42.45 ml/min; Glucose 213 mg/dL (74-106); Potassium 3.7 mmol/L (3.5-5.1); Sodium Level 132 mmol/L (136-145)
[2021-02-14 07:35] LABS: Bedside Glucose 224 mg/dL (70-110)
[2021-02-14 07:38] LABS: Differential Comment SCANNED
--- NOTE | 2021-02-14 08:32 | NURSING ---
This nurse had a long conversation with patient's daughter discussing his current mentation, including disorganized speech, hallucinations and tremors that he is exhibiting. Patient's daughter identified this as new behavior over the past day or 2 but indicated that this behavior was being exhibited yesterday as well.
[2021-02-14] MEDS: Insulin Lispro 100 UNIT/ML INSULN.PEN SC ×4 (09:27→21:29)
[2021-02-14] MEDS: Insulin Lispro 100 UNIT/ML INSULN.PEN 8 UNIT SC ×3 (09:27→16:45)
[2021-02-14] MEDS: Famotidine 20 MG Tablet PO ×2 (09:28→21:12)
[2021-02-14] MEDS: Gabapentin 300 MG Capsule PO ×2 (09:28→21:12)
[2021-02-14] MEDS: Aspirin 81 MG TAB.CHEW PO (09:28)
[2021-02-14] MEDS: Metoprolol(XL)Succ 25 MG Tablet PO (09:31)
[2021-02-14] MEDS: Acetaminophen 325 MG Tablet 650 MG PO (09:35)
--- NOTE | 2021-02-14 12:21 | CASEMGMT ---
BALBINA ESPINOSA received call from Beltran at [facility] requesting updated clinicals to be faxed to [phone]. [facility]'s number is [phone] ext [phone]. BALBINA ESPINOSA faxed updated clinical information to [place].
[2021-02-14 12:31] LABS: Bedside Glucose 321 mg/dL (70-110)
--- NOTE | 2021-02-14 12:47 | CASEMGMT ---
Addendum entered by Nimo Nieves 02/14/21 15:19: SW spoke w/[facility], they can accept pt when he is ready for discharge. They will check on whether or not precert is needed for pt. SW will fax over the PT/OT evaluations once it is entered into the computer. SW called daughter to let her know. SW will continue to follow. INDY Fink Addendum entered by Nimo Nieves 02/14/21 14:22: SW spoke w/Micki Louis at the [facility], she states they have no beds in the [facility] and in fact they have a wait list. SW faxed the initial referral to [facility]. SW also called and left a message. SW spoke w/daughter, let her know [facility] is full, and referral faxed to [facility]. Daughter gave [facility] as a third choice if needed. [facility] will continue to follow. INDY Fink Addendum entered by Nimo Nieves 02/14/21 13:54: JOSE LUIS Dalton at [facility], called this SW back. She states pt is not service connected. If family wants pt to go to [facility], she suggested sending an email to . She said if nobody responds, to try Micki Julien at [phone], [phone]. Email sent to the email listed. Pt's daughter is here, SW spoke w/her outside of the room. SW asked daughter about pt's foot amputation, as PT had asked. Pt had a partial foot amputation in February of 2018, and pt is full weight bearing. Daughter spoke about pt's health issues, she states she is wondering if pt has vascular dementia. He was to follow up w/neurology on Friday. SW offered supportive listening to daughter. Daughter states if a bed is available they would still want pt transferred but is okay if pt stays here as well. SW spoke w/daughter about discharge plan, explained pt has been having a difficult with physical therapy. Daughter is agreeable to SNF placement. She confirmed [facility] is the first choice. SW gave daughter list of shelter facilities in network w/pt's [facility] Medicare insurance, complete with quality and resource use data. Daughter states if [facility] cannot take pt, then [facility] is the second choice and [facility] is the third choice. JOSE LUIS will continue to follow, [facility] and will then proceed from there. INDY Fink Original Note: JOSE LUIS called the [facility] to find out about having pt go to the [facility] for SNF placement. SW left a message for Dennis ([phone], [phone]) to ask about getting pt to this facility. JOSE LUIS did also call JOSE LUIS Dalton at the [facility], to find if pt is service connected and if she may have a better contact number for [facility]. JOSE LUIS called daughter Ac to discuss discharge plan. She is on her son's field trip, SW will call her back later today. INDY Fink
--- NOTE | 2021-02-14 15:38 | PCM.RX.CS ---
Consult Pharmacy has been consulted to manage selected antiobiotic: Vancomycin Type of Consult: New start Labs: Sodium 132 mmol/L (136-145) L 02/14/21 07:00 Potassium 3.7 mmol/L (3.5-5.1) 02/14/21 07:00 Chloride 102 mmol/L (98-107) 02/14/21 07:00 Carbon Dioxide 21.0 mmol/L (21.0-32.0) 02/14/21 07:00 Anion Gap 9 (5-15) 02/14/21 07:00 BUN 34 mg/dL (7-18) H 02/14/21 07:00 Creatinine 1.55 mg/dL (0.70-1.30) H 02/14/21 07:00 Est GFR (MDRD) Af Amer 57 mL/min (>60) L 02/14/21 07:00 Est GFR (MDRD) Non-Af 47 mL/min (>60) L 02/14/21 07:00 BUN/Creatinine Ratio 21.9 RATIO (10-20) H 02/14/21 07:00 Glucose 213 mg/dL (74-106) H 02/14/21 07:00 Microbiology: Microbiology 02/13/21 23:29 Blood Culture (Wb) - Right Hand Blood Culture - Preliminary 02/13/21 23:29 Blood Culture (Wb) - Anticubital Left Blood Culture - Preliminary 02/14/21 00:42 Nasal Secretion SARS-CoV-2 Antigen (Rapid) - Final Weight used for dosin.4 kg Estimated Creatinine Clearance: 42.5ML/MIN Goal Trough: 15-20 mcg/mL Pharmacy Plan for Drug Dosing: Give initial load dose of 2000mg x1, then continue with 500mg IV q12h per [facility] dosing protocol. Will check a trough level before the 4th total dose. Pharmacy Service will continue to monitor and adjust dosing as required. Follow-Up Labs: Trough Vancomycin Labs to be done on [date and time ordered]: 02/16/21 02:30
[2021-02-14 16:16] LABS: Bedside Glucose 360 mg/dL (70-110)
--- NOTE | 2021-02-14 17:11 | PCM.PN.HOSP ---
Subjective Subjective Patient was seen and examined today, 2 blood cultures resulted positive for gram-positive cocci in clusters, the blood culture from the right hand resulted positive for staph aureus. I had infectious diseases see the patient today and they placed the patient on IV vancomycin. Objective Data Objective Data Vital Signs: Vital Signs Temp Pulse Resp BP Pulse Ox 98.5 F 84 22 H 108/49 L 97 02/14/21 16:47 02/14/21 16:47 02/14/21 16:47 02/14/21 16:47 02/14/21 16:47 Oxygen Flow Rate (L/min) 2 Oxygen Delivery Method Nasal Cannula Weight: 77.4 kg Body Mass Index (BMI) 24.0 Intake & Output: Intake and Output for Last 24 Hours 02/12/21 02/13/21 02/14/21 23:59 23:59 23:59 Intake Total 1530.83 / 1530.83 3605.84 / 3605.84 1350.5 / 1350.5 Output Total 450 / 450 1250 / 1250 600 / 600 Balance 1080.83 / 1080.83 2355.84 / 2355.84 750.5 / 750.5 Lab / Micro Data Result Diagrams: 02/14/21 07:00 02/14/21 07:00 Labs: Laboratory Results - last 24 hr 02/13/21 16:50: Urine Color Yellow, Urine Clarity Sl. Cloudy, Urine pH 5.0, Ur Specific [place] 1.020, Urine Protein 100 H, Urine Glucose (UA) 1000 H, Urine Ketones 5 H, Urine Occult Blood 250 H, Urine Nitrite Negative, Urine Bilirubin Negative, Urine Urobilinogen Normal, Ur Leukocyte Esterase Negative, Urine RBC 25-50 SEEN, Urine WBC 0 SEEN, Ur Squamous Epith Cells 0 SEEN, Amorphous Sediment 2+, Urine Bacteria 2+, Urine Mucus 0 SEEN 02/13/21 16:55: POC Glucose 292 H 02/13/21 22:16: POC Glucose 246 H 02/13/21 23:29: Lactic Acid 1.6 02/13/21 23:35: WBC 14.9 H, RBC 3.65 L, Hgb 10.0 L, Hct 31.3 L, MCV 85.8, MCH 27.4, MCHC 31.9 L, RDW Std Deviation 45.7 H, RDW Coeff of Fernando 14.5, Plt Count 224, MPV 10.8, Immature Gran % (Auto) 0.900, Neut % (Auto) 87.5 H, Lymph % (Auto) 3.8 L, [place] % (Auto) 7.7, Eos % (Auto) 0.0, Baso % (Auto) 0.1, Absolute Neuts (auto) 13.0 H, Absolute Lymphs (auto) 0.57 L, Nucleated RBC % 0, Differential Comment SCANNED 02/14/21 00:40: Urine Color Yellow, Urine Clarity Sl. Cloudy, Urine pH 5.0, Ur Specific [place] 1.020, Urine Protein 100 H, Urine Glucose (UA) 250 H, Urine Ketones 5 H, Urine Occult Blood 250 H, Urine Nitrite Negative, Urine Bilirubin Negative, Urine Urobilinogen 1 H, Ur Leukocyte Esterase 25 H, Urine RBC 5-10 SEEN, Urine WBC 0-5 SEEN, Ur Squamous Epith Cells 0 SEEN, Amorphous Sediment 2+, Urine Bacteria 2+, Urine Mucus 0 SEEN 02/14/21 04:27: POC Glucose 205 H 02/14/21 07:00: PT 24.1 H, INR 2.3 02/14/21 07:00: WBC 14.5 H, RBC 3.97 L, Hgb 11.1 L, Hct 34.1 L, MCV 85.9, MCH 28.0, MCHC 32.6, RDW Std Deviation 45.1 H, RDW Coeff of Fernando 14.3, Plt Count 194, MPV 10.0, Immature Gran % (Auto) 1.100 H, Neut % (Auto) 83.1 H, Lymph % (Auto) 6.5 L, [place] % (Auto) 9.2, Eos % (Auto) 0.0, Baso % (Auto) 0.1, Absolute Neuts (auto) 12.0 H, Absolute Lymphs (auto) 0.94, Nucleated RBC % 0, Differential Comment SCANNED 02/14/21 07:00: Sodium 132 L, Potassium 3.7, Chloride 102, Carbon Dioxide 21.0, Anion Gap 9, BUN 34 H, Creatinine 1.55 H, Estim Creat Clear Calc 42.45, Est GFR (MDRD) Af Amer 57 L, Est GFR (MDRD) Non-Af 47 L, BUN/Creatinine Ratio 21.9 H, Glucose 213 H, Calcium 8.3 L 02/14/21 07:28: POC Glucose 224 H 02/14/21 12:26: POC Glucose 321 H 02/14/21 16:10: POC Glucose 360 H Micro: Microbiology 02/13/21 23:29 Blood Culture (Wb) - Right Hand Bacteria Detection (PCR) - Preliminary Staphylococcus aureus 02/13/21 23:29 Blood Culture (Wb) - Right Hand Blood Culture - Preliminary 02/13/21 23:29 Blood Culture (Wb) - Anticubital Left Blood Culture - Preliminary 02/14/21 00:42 Nasal Secretion SARS-CoV-2 Antigen (Rapid) - Final Radiography Diagnostic Testing: Radiology Impression Chest X-Ray 02/13/21 22:51 IMPRESSION: Normal x-ray examination of the chest. Electronically Signed: Pramod Blanchard DO at 0:47 EDT Tel , Service support , Physical Exam Const alert Constitutional Narrative: Patient is alert but confused today, he appears older than his stated age General Appearance: cooperative, well kempt and well developed Orientation / Consciousness: awake, oriented to person, oriented to place and oriented to time HEENT normocephalic, head/scalp atraumatic and moist oral mucous membranes Head and Scalp: normocephalic Eyes PERRL, EOMs intact bilaterally and conjunctivae normal Neck nuchal rigidity, supple, no JVD, thyroid normal and no carotid bruits General: trachea midline Resp normal respiratory effort, no retractions, no use of accessory muscles and clear to auscultation bilaterally Auscultation: Negative for rales, rhonchi or wheezes Cardio regular rate, regular rhythm, S1 normal heart sound, S2 normal heart sound, no murmurs, no rub and no gallops GI normal to inspection, nondistended, normoactive bowel sounds, soft to palpation, non-tender and non-distended Extremity no clubbing, cyanosis or edema Skin no rashes or lesions noted, skin turgor normal and no jaundice General Skin Exam: no breakdown Neuro CN's II-XII intact bilaterally, no focal motor deficits and no sensory deficits noted Sensorium / Orientation: alert Psych thought process normal Psych Narrative: Patient is confused, his affect is flat Assessment & Plan Assessment/Plan (1) Benign essential hypertension: PLAN: 1. Bacteremia-probably secondary to staph aureus, reason unknown at this time, infectious diseases is seeing patient #2 encephalopathy-possibly secondary to bacteremia, continue to offer supportive care #3 generalized debility-PT and OT are seeing patient, patient was unable to get out of bed to sit in a chair today. The plan is for the patient to be transferred to a retirement facility when a bed becomes available and he is medically stable. #4 history of cerebrovascular disease (TIAs)-continue supportive care #5 paroxysmal atrial flutter-I talked to the patient's daughter today and she states that the patient has a history of the summer of atrial flutter and had to be cardioverted. He was changed from Xarelto to Coumadin due to continued episodes felt to be TIAs. #6 possible vascular dementia-patient's daughter states that the patient's mental status has declined since October of this year, he had been hospitalized and June of this year and spent approximately 3 months in the hospital/rehab facility at the [facility]. Patient's daughter states patient was treated with IV antibiotics for 6 weeks. Patient has been having outburst of inappropriate language with crude comments at times. Patient's daughter stays with him currently. #7 type 2 diabetes-continue to monitor blood sugars #8 essential hypertension #9 hyperlipidemia Charges/Coding Visit Charges Inpatient E&M: 09528 Subs Hosp L2
--- NOTE | 2021-02-14 20:35 | CON.PCM.ID_ITS ---
Assessment & Plan Assessment/Plan (1) Bacteremia: PLAN: [facility] this [facility]. Reviewed photo R foot ulcer. Now bcx x2 (+) GPC, staph aureus. On zosyn, will add vanc, check TTE, and check R foot mri. Will follow, thank you HPI Consult Data Date of Consult: 02/14/21 HPI Narrative HPI Narrative: SALLY KELSEY, is a 75 M with h/o dementia, lumbar stenosis, presented after lethargy and fall at home. No fever, reports some pain in back; otherwise unable to provide history or ROS. Came to ED, admitted on zosyn. Now bcx x2 with GPC. [facility] Medical History Atrial fibrillation Chest pain Chronic pain Congestive heart failure (CHF) CPAP (continuous positive airway pressure) dependence Depression Diabetes Non-smoker Partial nontraumatic amputation of right foot Sleep apnea TIA (transient ischemic attack) Home Medications aspirin 81 mg PO DAILY@0800 06/23/20 [History Last Taken 12/04/20] atorvastatin 40 mg PO QHS 06/23/20 [History Last Taken 12/03/20] cholecalciferol (vitamin D3) 2,000 unit PO DAILY 06/23/20 [History Last Taken 12/04/20] melatonin-pyridoxine HCl (B6) 3 mg PO QHS 06/23/20 [History Last Taken 12/03/20] insulin aspart (niacinamide) 8 unit SUBCUT TID 10/23/20 [History Last Taken 12/04/20] Lantus U-100 Insulin 26 unit SUBCUT QHS 11/16/20 [History Last Taken 12/03/20] acetaminophen [Tylenol Extra Strength] 1,000 mg PO Q6H PRN 11/16/20 [History Last Taken 12/04/20] gabapentin 300 mg PO BID 11/16/20 [History Last Taken 12/04/20] diclofenac sodium 1 ea TOPICAL BID 12/04/20 [History Last Taken 12/03/20] docusate sodium 100 mg PO BID 12/04/20 [History Last Taken 12/04/20] metoprolol succinate 50 mg PO DAILY 12/04/20 [History Last Taken 12/04/20] warfarin 5 mg PO DAILY 12/04/20 [History Last Taken 12/03/20] enoxaparin [Lovenox] 100 mg SUBCUT Q12H 12/15/20 [History Last Taken Unknown] Allergy/AdvReac Type Severity Reaction Status Date / Time No Known Allergies Allergy Verified 12/26/20 22:26 Family History Mother Diabetes Father COPD (chronic obstructive pulmonary disease) Surgical History Hx of CABG Social History Smoking Status: Former smoker alcohol intake: never substance use type: does not use Physical Exam Const no apparent distress Constitutional Narrative: oriented x2 HEENT normocephalic Eyes PERRL and EOMs intact bilaterally Neck supple and No nodes Resp normal air movement and clear to auscultation bilaterally Cardio regular rate and regular rhythm GI normal to inspection, nondistended, normoactive bowel sounds Extremity no clubbing, cyanosis or edema Skin no rashes or lesions noted Lab / Micro Data Result Diagrams: 02/14/21 07:00 02/14/21 07:00 Labs: Laboratory Results - last 24 hr 02/13/21 16:50: Urine Color Yellow, Urine Clarity Sl. Cloudy, Urine pH 5.0, Ur S pecific [place] 1.020, Urine Protein 100 H, Urine Glucose (UA) 1000 H, Urine Ketones 5 H, Urine Occult Blood 250 H, Urine Nitrite Negative, Urine Bilirubin Negative, Urine Urobilinogen Normal, Ur Leukocyte Esterase Negative, Urine RBC 25-50 SEEN, Urine WBC 0 SEEN, Ur Squamous Epith Cells 0 SEEN, Amorphous Sediment 2+, Urine Bacteria 2+, Urine Mucus 0 SEEN 02/13/21 22:16: POC Glucose 246 H 02/13/21 23:29: Lactic Acid 1.6 02/13/21 23:35: WBC 14.9 H, RBC 3.65 L, Hgb 10.0 L, Hct 31.3 L, MCV 85.8, MCH 27.4, MCHC 31.9 L, RDW Std Deviation 45.7 H, RDW Coeff of Fernando 14.5, Plt Count 224, MPV 10.8, Immature Gran % (Auto) 0.900, Neut % (Auto) 87.5 H, Lymph % (Auto) 3.8 L, [place] % (Auto) 7.7, Eos % (Auto) 0.0, Baso % (Auto) 0.1, Absolute Neuts (auto) 13.0 H, Absolute Lymphs (auto) 0.57 L, Nucleated RBC % 0, Differential Comment SCANNED 02/14/21 00:40: Urine Color Yellow, Urine Clarity Sl. Cloudy, Urine pH 5.0, Ur Specific [place] 1.020, Urine Protein 100 H, Urine Glucose (UA) 250 H, Urine Ketones 5 H, Urine Occult Blood 250 H, Urine Nitrite Negative, Urine Bilirubin Negative, Urine Urobilinogen 1 H, Ur Leukocyte Esterase 25 H, Urine RBC 5-10 SEEN, Urine WBC 0-5 SEEN, Ur Squamous Epith Cells 0 SEEN, Amorphous Sediment 2+, Urine Bacteria 2+, Urine Mucus 0 SEEN 02/14/21 04:27: POC Glucose 205 H 02/14/21 07:00: PT 24.1 H, INR 2.3 02/14/21 07:00: WBC 14.5 H, RBC 3.97 L, Hgb 11.1 L, Hct 34.1 L, MCV 85.9, MCH 28.0, MCHC 32.6, RDW Std Deviation 45.1 H, RDW Coeff of Fernando 14.3, Plt Count 194, MPV 10.0, Immature Gran % (Auto) 1.100 H, Neut % (Auto) 83.1 H, Lymph % (Auto) 6.5 L, [place] % (Auto) 9.2, Eos % (Auto) 0.0, Baso % (Auto) 0.1, Absolute Neuts (auto) 12.0 H, Absolute Lymphs (auto) 0.94, Nucleated RBC % 0, Differential Comment SCANNED 02/14/21 07:00: Sodium 132 L, Potassium 3.7, Chloride 102, Carbon Dioxide 21.0, Anion Gap 9, BUN 34 H, Creatinine 1.55 H, Estim Creat Clear Calc 42.45, Est GFR (MDRD) Af Amer 57 L, Est GFR (MDRD) Non-Af 47 L, BUN/Creatinine Ratio 21.9 H, Glucose 213 H, Calcium 8.3 L 02/14/21 07:28: POC Glucose 224 H 02/14/21 12:26: POC Glucose 321 H 02/14/21 16:10: POC Glucose 360 H Micro: Microbiology 02/13/21 23:29 Blood Culture (Wb) - Right Hand Bacteria Detection (PCR) - Preliminary Staphylococcus aureus 02/13/21 23:29 Blood Culture (Wb) - Right Hand Blood Culture - Preliminary 02/13/21 23:29 Blood Culture (Wb) - Anticubital Left Blood Culture - Preliminary 02/14/21 00:42 Nasal Secretion SARS-CoV-2 Antigen (Rapid) - Final Radiology Impression Chest X-Ray 02/13/21 22:51 IMPRESSION: Normal x-ray examination of the chest. Electronically Signed: Pramod Blanchard DO at 0:47 EDT Tel , Service support ,
--- NOTE | 2021-02-14 20:40 | ECHOCS_ITS ---
Reason For Study: MURMUR Procedure This was a 2D Doppler, Color Flow transthoracic echocardiogram. The study was technically difficult. Exam performed portable in patient room. Left Ventricle Mildly dilated left ventricle. The estimated ejection fraction is EF 40-45 %. Right Ventricle Normal right ventricle. Normal systolic function. Atria Normal left atrium. Normal right atrium. Mitral Valve The mitral valve is structurally normal. No prolapse or stenosis seen. Trivial mitral valve insufficiency. Tricuspid Valve Normal tricuspid valve. Trivial tricuspid valve insufficiency. Aortic Valve Normal aortic valve. Trivial aortic valve insufficiency. Pulmonic Valve The pulmonic valve is not well visualized. MMode/2D Measurements & Calculations LVIDd: 4.2 cm IVSd: 0.55 cm LAV(MOD-bp): 54.5 ml LVIDs: 3.1 cm LVPWd: 0.75 cm LAV(MOD-bp) Indexed: 28.3 ml/m2 RVDd: 2.6 cm FS: 25.1 % LAV(MOD-sp2): 51.7 ml LAV(MOD-sp4): 51.8 ml LVAd ap4: 30.2 cm2 LVAd ap2: 28.4 cm2 SV(MOD-sp4): 58.1 ml LVLd ap4: 7.5 cm LVLd ap2: 8.8 cm EDV(MOD-sp4): 98.9 ml EDV(MOD-sp2): 75.7 ml EDV(sp4-el): 102.8 ml EDV(sp2-el): 78.1 ml LVAs ap4: 18.6 cm2 LVAs ap2: 17.0 cm2 LVLs ap4: 7.0 cm LVLs ap2: 7.8 cm ESV(MOD-sp4): 40.8 ml ESV(MOD-sp2): 31.2 ml ESV(sp4-el): 42.0 ml ESV(sp2-el): 31.4 ml EF(MOD-sp4): 58.7 % EF(MOD-sp2): 58.7 % EF(sp4-el): 59.1 % SV(MOD-sp2): 44.5 ml SV(sp4-el): 60.8 ml LA A4 area: 18.9 cm2 LA dimension(2D): 3.3 cm RA A4 area: 10.5 cm2 Time Measurements MV dec time: 0.22 sec Doppler Measurements & Calculations MV E max chance: 58.8 cm/sec Lat Peak E' Chance: 5.9 cm/sec Med Peak E' Chance: 5.2 cm/sec MV A max chance: 76.1 cm/sec E/E' lat: 9.9 E/E' med: 11.4 MV E/A: 0.77 Ao V2 max: 105.6 cm/sec LV V1 max: 100.6 cm/sec PA V2 max: 100.7 cm/sec Ao max P.5 mmHg LV V1 max P.0 mmHg TR max chance: 237.1 cm/sec TR max P.5 mmHg ECHO/Echo Complete W/ Contrast Interpretation Summary The estimated ejection fraction is EF 40-45 %. Mild anteroapical Hypokinesia Ordering Physician: [place] Referring Physician: [facility] Performed By: Corin Tobin, PAVAN, RVT
[2021-02-14] MEDS: Atorvastatin Calcium 40 MG Tablet PO (21:12)
[2021-02-14] MEDS: Tamsulosin HCl 0.4 MG Capsule 0.8 MG PO (21:12)
[2021-02-14 22:01] LABS: Bedside Glucose 240 mg/dL (70-110)
[2021-02-15] VITALS (11 sets, daily range): BP systolic 109–128; BP diastolic 51–71; PULSE 79–90; RESP 15–24; TEMP 36.2–37.1; O2SAT 93–96
[2021-02-15] MEDS: Vancomycin IV 500 MG/100 ML BAG 100 MG IV (03:40)
[2021-02-15 06:02] LABS: Absolute Lymphocyte Count 0.83 X10^3/uL (0.83-4.51); Absolute Neutrophil Count 9.4 X10^3/uL (2.0-7.7); Basophil# 0.02 X10^3/uL; Basophil% 0.2 % (0-1); Hematocrit 28.4 % (40-54); Hemoglobin 9.5 g/dL (13.0-16.5); Lymphocyte # 0.83 X10^3/ul (0.83-4.51); Lymphocyte % 7.3 % (19-41); Mean Corp Hgb Conc 33.5 g/dL (32-36); Mean Corpuscular Volume 83.8 fL (80-94); Monocyte# 1.02 X10^3/uL; NRBC Flagged by Analyzer 0 % (0-5); Neutrophil # 9.43 X10^3/uL (2.7-7.7); Neutrophil % 83.1 % (47-70); POSITIVE MORPHOLOGY YES; Platelet Count 162 K/mm3 (150-450); RBC Distribution Width CV 14.4 % (11.6-14.6); RBC Distribution Width SD 44.1 fl (35.1-43.9); Red Blood Count 3.39 M/mm3 (4.6-6.2); White Blood Count 11.3 K/mm3 (4.4-11.0)
[2021-02-15 06:04] LABS: Differential Indicated SCAN CRITERIA MET
[2021-02-15 06:13] LABS: International Normalized Ratio 3.5; Prothrombin Time (Protime)PT. 34.3 SECONDS (11.7-14.9)
[2021-02-15 06:20] LABS: Differential Comment SCANNED
[2021-02-15 06:25] LABS: Anion Gap 10 (5-15); BUN 32 mg/dL (7-18); BUN/Creat Ratio 21.2 RATIO (10-20); Chloride 104 mmol/L (98-107); Creatinine, Serum 1.51 mg/dL (0.70-1.30); EST Glomerular Filtration Rate 48 mL/min (>60); Est Glom Filt Rate - Afr Amer 58 mL/min (>60); Estimated Creatinine Clearance 43.57 ml/min; Glucose 221 mg/dL (74-106); Potassium 3.4 mmol/L (3.5-5.1); Sodium Level 137 mmol/L (136-145)
[2021-02-15] MEDS: Insulin Lispro 100 UNIT/ML INSULN.PEN SC ×4 (08:08→20:47)
[2021-02-15] MEDS: Insulin Lispro 100 UNIT/ML INSULN.PEN 8 UNIT SC ×3 (08:08→16:53)
[2021-02-15 08:20] LABS: Bedside Glucose 220 mg/dL (70-110)
[2021-02-15] MEDS: Metoprolol(XL)Succ 25 MG Tablet PO (08:52)
[2021-02-15] MEDS: Famotidine 20 MG Tablet PO ×2 (08:53→20:49)
[2021-02-15] MEDS: Aspirin 81 MG TAB.CHEW PO (08:54)
[2021-02-15] MEDS: Gabapentin 300 MG Capsule PO (08:54)
--- NOTE | 2021-02-15 09:30 | MRI_ITS ---
STUDY: MRI RIGHT MIDFOOT REASON FOR EXAM: Wound at the plantar aspect of the right foot, suspected osteomyelitis. TECHNIQUE: Standardized fat and water weighted pulse sequences were obtained in all 3 orthogonal planes. COMPARISON: MRI images 07/20/2018. FINDINGS: Although there is image degradation secondary to patient motion, there is still significant diagnostically useful information available from this examination. Normal tibiotalar and posterior subtalar articulations. Normal talonavicular articulation. Normal calcaneocuboid articulation. Normal navicular-cuneiform articulations. Normal intercuneiform articulations. Normal first tarsometatarsal articulation. Normal second and third tarsometatarsal articulations. Normal cuboid fourth and cuboid fifth tarsometatarsal articulation. There are amputations of the first through fifth metatarsals at the metatarsal bases. There is mild bone edema in the amputated base of the first metatarsal (inversion recovery sagittal image 6) with corresponding decreased T1 bone marrow signal (T1 coronal image 6), suggestive of osteomyelitis. There is no demonstrated bone edema of the second through fifth metatarsal bases. There is fat replacement of the intrinsic muscles of the foot consistent with peripheral neuropathy. There is mild edema in the plantar subcutis adipose space. There is no demonstrated soft tissue abscess. MRI/Lower Ext/No Jt/w/o IMPRESSION: Mild bone edema of the amputated base of the first metatarsal suggestive of osteomyelitis. Fat replacement intrinsic muscles of the foot consistent with peripheral neuropathy. No demonstrated soft tissue abscess. Electronically Signed: Kamran Diaz MD at 12:40 EDT Tel , Service support ,
--- NOTE | 2021-02-15 10:59 | PCM.PN.ID ---
Physical Exam Narrative No fever, lethargic Const Orientation / Consciousness: lethargic Resp normal air movement and clear to auscultation bilaterally Cardio regular rate and regular rhythm GI normal to inspection, nondistended, normoactive bowel sounds Extremity no clubbing, cyanosis or edema Skin Skin Narrative: R foot s/p TMA, wrapped ID ID: Route of nutrition/ use of supplements: [] Nutritional Intake: [] IV Site: [] Toscano Catheter: [] Assessment & Plan Assessment/Plan (1) Bacteremia: PLAN: [facility] this [facility]. Reviewed photo R foot ulcer. Now bcx x2 (+) GPC, MSSA. On zosyn, will stop vanc, check TTE, and check R foot mri. Will follow
--- NOTE | 2021-02-15 12:17 | CASEMGMT ---
Addendum entered by Claudia Cespedes 02/15/21 17:51: SW faxed PT/OT to [facility]. JOSE LUIS still waiting for call back to determine if pt will need pre-cert or if pt's insurance is waiving pre-certs. SW to follow up with [facility] tomorrow. Plan: [facility] Original Note: Social Work Note SW placed a call to Roseline Page at [facility] and left message asking if pre-cert is needed for pt. SW to fax PT/OT once available. Claudia Cespedes D[employer] M[employer] OPERATOR, MOTION PICTURE PHOTOGRAPHER
[2021-02-15 12:21] LABS: Bedside Glucose 270 mg/dL (70-110)
[2021-02-15 14:51] LABS: Erythrocyte Sedimentation Rate 45 mm/hr (0-20)
--- NOTE | 2021-02-15 15:12 | CON.PCM_ITS ---
Assessment & Plan Assessment/Plan (1) Bacteremia: (2) Right foot transmetatarsal amputation: (3) Chronic ulcer of right foot with fat layer exposed: (4) Type 2 diabetes mellitus with diabetic polyneuropathy: (5) Osteomyelitis: (6) Other specified peripheral vascular diseases: PLAN: I reviewed and discussed his case today with his daughter that is bedside; patient is not able to participate in the exam. Subcutaneous excisional debridement was performed today with a 15 blade scalpel to excise devitalized subcutaneous tissue, biofilm, slough, and fibrous tissue of the plantar right foot. The following work up and care recommendations were made: This patient is noted to have bacteremia with unknown confirmed source. He is currently afebrile and his vital signs are stable this afternoon. His leukocy tosis is noted. His chronic history of delayed healing and prior osteomyelitis of the right foot is also noted. Clinically there are no local signs of infection however a wound open for a prolonged length of time that could potentially be a nidus of infection. There is no erythema, purulence, necrosis at this site. The right foot ulcer was debrided and after saline rinse, a wound culture was obtained (aerobic, anaerobic, MRSA PCR). Updated foot x-ray was ordered for comparative purposes. His MRI was reviewed with suggestive osteomyelitis of the residual first metatarsal base. There is increased intake noted on STIR image and also T2 corresponding with decreased intensity on T1. It is noted he had previously been treated for osteomyelitis in this location in 2019 and his daughter also suggests he has been treated for this again in outside facility earlier this year. A way to obtain more definitive information on this particular site as the nidus of bacteremia infection could include a surgical bone biopsy. I am concerned that he does not have appropriate vascular status and his foot does not appear acute. I have ordered a noninvasive vascular study. Otherwise, additional antibiotics could be considered as additional source workup is still in process. If lack of definitive source is identified, a bone scan could also be considered. It is noted he is on IV vancomycin and Zosyn. ID is also on consult and notes were reviewed. Medical records will be requested from outside facilities for he had extensive workup and intervention at another location(s). Dressing: Hydrogel and gauze daily right foot Offload: Nonweightbearing right Vascular: He has abnormal palpable pulses with known delayed ulcer healing. I recommend noninvasive vascular studies; this was ordered. Host factors: He has multiple comorbidities that have contributed to delayed healing. Medical management per hospitalist is noted. Nutritional supplements were ordered to optimize healing; Walker. I answered all of his daughter's questions. Thank you for the consultation. d/w Dr. Kelly. The podiatry team will continue to follow him while in-house. Please do not hesitate to call if you have any questions. Maryana Handy DPM, [facility] HPI Consult Data Date of Consult: 02/15/21 HPI Narrative Reason for Consultation: right foot ulcer HPI Narrative: SLALY KELSEY, is a 75 M was seen bedside for right foot ulcer. He was admitted for fall and work-up for TIA. Subsequently positive blood cul tures were identified and the source of the infection is unclear. He has a complicated and extensive history of bilateral foot ulcers with delayed healing. His daughter is bedside and is able to provide most of the information. The patient is participating in a very minimal manner and has some expressive aphasia during the exam. His daughter reports he had an initial onset of a foot ulcer with infection in 2018 resulting in a right midfoot amputation. He had delayed healing since that time frame in which he has been following with a wire coiner at an outside facility. Most recently, he has demonstrated the best progress in healing since he has been in a alf facility at an [facility] location and under the care at his daughter at home because this has allowed him to avoid walking activities. The ulcer site is nearly healed and the daughter denies any recent odor, redness, or recent known injuries of the right lower extremity. He has previously been treated with antibiotics for this foot. The daughter reports that he may have had vascular studies done over 2 years at an outside facility and denies any known vascular surgery intervention. More recently, the daughter reports that he had cellulitis on the contralateral left lower extremity within the past 6 months which she was treated at both [facility] and in [place] ([place] [facility] with IV antibiotics. While at the [facility], it was identified that he had a foreign body needle in his foot which required incision and drainage and removal. He has had delayed healing of that ulcer site also and this lateral heel ulcer site has since healed. She denies concerns of the left lower extremity at this time. The daughter also reports since the left foot cellulitis was addressed, he more recently he had bacteremia again and went through a full work up to identify the source at another facility in which it was identified he had a spine infection. [facility] Medical History Atrial fibrillation Chest pain Chronic pain Congestive heart failure (CHF) CPAP (continuous positive airway pressure) dependence Depression Diabetes Non-smoker Partial nontraumatic amputation of right foot Sleep apnea TIA (transient ischemic attack) Home Medications aspirin 81 mg PO DAILY@0800 06/23/20 [History Last Taken 12/04/20] atorvastatin 40 mg PO QHS 06/23/20 [History Last Taken 12/03/20] cholecalciferol (vitamin D3) 2,000 unit PO DAILY 06/23/20 [History Last Taken 12/04/20] melatonin-pyridoxine HCl (B6) 3 mg PO QHS 06/23/20 [History Last Taken 12/03/20] insulin aspart (niacinamide) 8 unit SUBCUT TID 10/23/20 [History Last Taken 06/25] Lantus U-100 Insulin 26 unit SUBCUT QHS 11/16/20 [History Last Taken 12/03/20] acetaminophen [Tylenol Extra Strength] 1,000 mg PO Q6H PRN 11/16/20 [History Last Taken 12/04/20] gabapentin 300 mg PO BID 11/16/20 [History Last Taken 12/04/20] diclofenac sodium 1 ea TOPICAL BID 12/04/20 [History Last Taken 12/03/20] docusate sodium 100 mg PO BID 12/04/20 [History Last Taken 12/04/20] metoprolol succinate 50 mg PO DAILY 12/04/20 [History Last Taken 12/04/20] warfarin 5 mg PO DAILY 12/04/20 [History Last Taken 12/03/20] enoxaparin [Lovenox] 100 mg SUBCUT Q12H 12/15/20 [History Last Taken Unknown] Allergy/AdvReac Type Severity Reaction Status Date / Time No Known Allergies Allergy Verified 12/26/20 22:26 Family History Mother Diabetes Father COPD (chronic obstructive pulmonary disease) Surgical History Hx of CABG Social History Smoking Status: Former smoker alcohol intake: never substance use type: does not use ROS Review of Systems ROS Unobtainable: due to mental status Physical Exam Const alert and oriented x3 General Appearance: cooperative and lethargic Orientation / Consciousness: confused and disoriented HEENT normocephalic Extremity Extremity Narrative: No calf tenderness Diminished pulses (non palpable dp bilateral and 1/4 pt bilateral) Muscle wasting noted Right midfoot amputation General Extremity: edema and no tenderness to palpation of joints or extremities; Negative for cyanosis Skin Skin Narrative: Right lower extremity: No purulence, no streaking, no odor, no infection. Callus plantar right central foot upon debridement 2 x 2 x 1 mm skin discontinuity with very superficial subhemorrhagic base. Predebridement measurement was 1 x 1 x 1 mm with peripheral callus noted with some hemorrhagic bleeding distally in which there is no ulcer or skin discontinuity upon debridement of the callus site. No deep probing. No purulence on expression noted after debridement. No necrosis. No bogginess or fluctuance. Skin is hairless and atrophic Left lower extremity: No purulence, no streaking, no odor, no infection, no ulcer, no bogginess or fluctuance. The skin is also hairless and atrophic General Skin Exam: Negative for erythema Neuro Neuro Narrative: lack of normal epicritic sensation via light touch is consistent with neuropathy status Lab / Micro Data Result Diagrams: 02/15/21 05:50 02/15/21 05:50 Labs: Laboratory Results - last 24 hr 02/14/21 16:10: POC Glucose 360 H 02/14/21 21:27: POC Glucose 240 H 02/15/21 05:50: PT 34.3 H, INR 3.5 02/15/21 05:50: WBC 11.3 H, RBC 3.39 L, Hgb 9.5 L, Hct 28.4 L, MCV 83.8, MCH 28.0, MCHC 33.5, RDW Std Deviation 44.1 H, RDW Coeff of Fernando 14.4, Plt Count 162, MPV 10.0, Immature Gran % (Auto) 0.400, Neut % (Auto) 83.1 H, Lymph % (Auto) 7.3 L, [place] % (Auto) 9.0, Eos % (Auto) 0.0, Baso % (Auto) 0.2, Absolute Neuts (auto) 9.4 H, Absolute Lymphs (auto) 0.83, Nucleated RBC % 0, Differential Comment SCANNED 02/15/21 05:50: Sodium 137, Potassium 3.4 L, Chloride 104, Carbon Dioxide 23.0, Anion Gap 10, BUN 32 H, Creatinine 1.51 H, Estim Creat Clear Calc 43.57, Est GFR (MDRD) Af Amer 58 L, Est GFR (MDRD) Non-Af 48 L, BUN/Creatinine Ratio 21.2 H, Glucose 221 H, Calcium 8.0 L 02/15/21 05:50: ESR 45 H 02/15/21 05:50: C-React Prot Ext Range 243.00 H 02/15/21 08:06: POC Glucose 220 H 02/15/21 12:03: POC Glucose 270 H Micro: Microbiology 02/14/21 00:40 Urine, Catheterized Urine Culture - Preliminary Culture exhibits no growth. 02/13/21 23:29 Blood Culture (Wb) - Right Hand Bacteria Detection (PCR) - Final Staphylococcus aureus 02/13/21 23:29 Blood Culture (Wb) - Right Hand Blood Culture - Preliminary Staphylococcus aureus 02/13/21 23:29 Blood Culture (Wb) - Anticubital Left Blood Culture - Preliminary Staphylococcus aureus Radiology Impression Lower Extremity MRI 02/15/21 09:30 IMPRESSION: Mild bone edema of the amputated base of the first metatarsal suggestive of osteomyelitis. Fat replacement intrinsic muscles of the foot consistent with peripheral neuropathy. No demonstrated soft tissue abscess. Electronically Signed: Kamran Diaz MD at 12:40 EDT Tel , Service support ,
--- NOTE | 2021-02-15 15:37 | ART_ITS ---
Reason For Study: Ulcer Procedure A bilateral lower extremity continuous wave Doppler with analog waveform analysis,segmental pressures,and ankle brachial indexes without exercise. Left Segmental Pressures Left brachial= 132mmHg. Left posterior tibial artery = 134mmHg. Left dorsalis pedis artery = 154mmHg. Left digit = 118 mmHg. Right Segmental Pressures Right posterior tibial artery = 150mmHg. Right dorsalis pedis artery = 148mmHg. Indices The right ankle brachial index by the posterior tibial artery is 1.14. The right ankle brachial index by the dorsalis pedis is 1.12. The left ankle brachial index by the posterior tibial artery is 1.02. The left ankle brachial index by the dorsalis pedis is 1.17. The left digital-brachial index is 0.89. VL/Lower Ext Art Exam w/o Exercis Interpretation Summary Triphasic Doppler waveforms are noted at ankle level bilaterally. Pulse-volume recordings appear satisfactory at all levels bilaterally, though not assessed at digital level on the right. Resting ankle-brachial indices are normal bilaterally. The right digital-brachial index was not determined. The left digital-brachial index is normal. Arterial flow appears normal at ankle level bilaterally, and at digital level o n the left. Arterial flow was not assessed at digital level on the right. Ordering Physician: Maryana Handy Referring Physician: [facility] Performed By: Sarita Kurtz RDCS/GERARDO
[2021-02-15] MEDS: Tamsulosin HCl 0.4 MG Capsule 0.8 MG PO (16:14)
--- NOTE | 2021-02-15 16:15 | RAD_ITS ---
STUDY: X-RAY - RIGHT FOOT CLINICAL: Chronic ulcer/osteomyelitis of the right foot. TECHNIQUE: 3 view(s) of the foot. COMPARISON: Radiographs 07/19/2018. FINDINGS: There is osteopenia. There is a plantar calcaneal enthesophyte. There is an anchor in the proximal lateral cuneiform. Normal visualized subtalar, talonavicular, calcaneocuboid, tarsal and tarsometatarsal articulations. There is amputation at the level of the first through fifth metatarsal bases without demonstrated active bone destruction There is an ossification in the Achilles tendon. RAD/Foot min 3 Views IMPRESSION: Amputation at the level of the metatarsal bases without demonstrated radiographic active bone destruction. Electronically Signed: Kamran Diaz MD at 12:47 EDT Tel , Service support ,
[2021-02-15 17:01] LABS: Bedside Glucose 262 mg/dL (70-110)
[2021-02-15] MEDS: Juven (unflavored) Packet 1 PACKET PO (17:03)
--- NOTE | 2021-02-15 17:11 | PCM.PN.HOSP ---
Subjective Subjective Patient was seen and examined today, I talked with infectious diseases who requested that podiatry see the patient for a suspected osteomyelitis of the right foot which was indicated by the patient's MRI of his right foot, I talked with Dr. Parks today and she feels that the patient probably has a chronic osteomyelitis in that foot, due to poor circulation in that foot however, she feels that it would be too hazardous to do any surgery or biopsy on the foot, I relayed this to Dr. Grove and he will probably have to just treat the patient for suspected osteo with outpatient antibiotic treatment. Patient remains lethargic today, vital signs appear to be stable however. Objective Data Objective Data Vital Signs: Vital Signs Temp Pulse Resp BP Pulse Ox 98.3 F 79 16 128/71 H 96 02/15/21 17:04 02/15/21 17:04 02/15/21 17:04 02/15/21 17:04 02/15/21 17:04 Oxygen Flow Rate (L/min) 2 Oxygen Delivery Method Nasal Cannula Weight: 77 kg Body Mass Index (BMI) 24.0 Intake & Output: Intake and Output for Last 24 Hours 02/13/21 02/14/21 02/15/21 23:59 23:59 23:59 Intake Total 3605.84 / 3605.84 1940.5 / 1990.5 500 / 500 Output Total 1250 / 1250 1325 / 1575 1325 / 1325 Balance 2355.84 / 2355.84 615.5 / 415.5 -825 / -825 Lab / Micro Data Result Diagrams: 02/15/21 05:50 02/15/21 05:50 Labs: Laboratory Results - last 24 hr 02/14/21 21:27: POC Glucose 240 H 02/15/21 05:50: PT 34.3 H, INR 3.5 02/15/21 05:50: WBC 11.3 H, RBC 3.39 L, Hgb 9.5 L, Hct 28.4 L, MCV 83.8, MCH 28.0, MCHC 33.5, RDW Std Deviation 44.1 H, RDW Coeff of Fernando 14.4, Plt Count 162, MPV 10.0, Immature Gran % (Auto) 0.400, Neut % (Auto) 83.1 H, Lymph % (Auto) 7.3 L, [place] % (Auto) 9.0, Eos % (Auto) 0.0, Baso % (Auto) 0.2, Absolute Neuts (auto) 9.4 H, Absolute Lymphs (auto) 0.83, Nucleated RBC % 0, Differential Comment SCANNED 02/15/21 05:50: Sodium 137, Potassium 3.4 L, Chloride 104, Carbon Dioxide 23.0, Anion Gap 10, BUN 32 H, Creatinine 1.51 H, Estim Creat Clear Calc 43.57, Est GFR (MDRD) Af Amer 58 L, Est GFR (MDRD) Non-Af 48 L, BUN/Creatinine Ratio 21.2 H, Glucose 221 H, Calcium 8.0 L 02/15/21 05:50: ESR 45 H 02/15/21 05:50: C-React Prot Ext Range 243.00 H 02/15/21 08:06: POC Glucose 220 H 02/15/21 12:03: POC Glucose 270 H 02/15/21 16:51: POC Glucose 262 H Micro: Microbiology 02/14/21 00:40 Urine, Catheterized Urine Culture - Preliminary Culture exhibits no growth. 02/13/21 23:29 Blood Culture (Wb) - Right Hand Bacteria Detection (PCR) - Final Staphylococcus aureus 02/13/21 23:29 Blood Culture (Wb) - Right Hand Blood Culture - Preliminary Staphylococcus aureus 02/13/21 23:29 Blood Culture (Wb) - Anticubital Left Blood Culture - Preliminary Staphylococcus aureus 02/14/21 00:42 Nasal Secretion SARS-CoV-2 Antigen (Rapid) - Final Radiography Diagnostic Testing: Radiology Impression Lower Extremity MRI 02/15/21 09:30 IMPRESSION: Mild bone edema of the amputated base of the first metatarsal suggestive of osteomyelitis. Fat replacement intrinsic muscles of the foot consistent with peripheral neuropathy. No demonstrated soft tissue abscess. Electronically Signed: Kamran Diaz MD at 12:40 EDT Tel , Service support , Physical Exam Const alert, no apparent distress and average body habitus Constitutional Narrative: Patient is alert, he exhibits mild confusion and lethargy at times HEENT head/scalp atraumatic Head and Scalp: normocephalic Eyes conjunctivae normal Neck supple and no JVD Resp normal respiratory effort, no retractions and no use of accessory muscles Cardio regular rate, regular rhythm, S1 normal heart sound, S2 normal heart sound, no gallops and no clicks GI normal to inspection, nondistended, normoactive bowel sounds Extremity no clubbing, cyanosis or edema Extremity Narrative: 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 Neuro CN's II-XII intact bilaterally Neuro Narrative: Patient is lethargic, his speech is nonsensical at time Psych Psych Narrative: Patient is lethargic Assessment & Plan Assessment/Plan (1) Bacteremia: (2) Benign essential hypertension: PLAN: 1. Bacteremia-probably secondary to staph aureus, reason unknown at this time, infectious diseases is seeing patient, antibiotic administration per infectious diseases #2 encephalopathy-possibly secondary to bacteremia, continue to offer supportive care, I have elected to stop the patient's Neurontin, I do not see any other medication that could be causing lethargy. #3 generalized debility-PT and OT are seeing patient #4 history of cerebrovascular disease (TIAs)-continue supportive care #5 paroxysmal atrial flutter-patient's INR today was elevated, I have elected to reduce the patient's Coumadin to 4 mg daily, I will hold his Coumadin dosage today #6 possible vascular dementia-patient's daughter states that the patient's mental status has declined since October of this year, he had been hospitalized and June of this year and spent approximately 3 months in the hospital/rehab facility at the [place]. Patient's daughter states patient was treated with IV antibiotics for 6 weeks. Patient has been having outburst of inappropriate language with crude comments at times. Patient's daughter stays with him currently. 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
[2021-02-15 18:28] LABS: M R Staph aureus DNA By PCR Negative (Negative); Probe Check PASS; Specimen Processing Control PASS; Staph aureus DNA By PCR POSITIVE (Negative)
[2021-02-15] MEDS: Atorvastatin Calcium 40 MG Tablet PO (20:50)
[2021-02-15 21:06] LABS: Bedside Glucose 306 mg/dL (70-110)
[2021-02-16 02:36] VITALS: BP 112/53; PULSE 77; RESP 16; TEMP 37.3; O2SAT 94
[2021-02-16] MEDS: 0.9% Saline Lock 10 ML Syringe IV ×2 (06:00→22:26)
[2021-02-16 07:01] LABS: Bedside Glucose 274 mg/dL (70-110)
[2021-02-16 07:36] VITALS: O2SAT 93
[2021-02-16 08:22] VITALS: BP 142/75; PULSE 85; RESP 16; TEMP 36.7; O2SAT 93
--- NOTE | 2021-02-16 08:51 | PCA ---
Release of medical records faxed to [facility] and [facility]
[2021-02-16] MEDS: Insulin Lispro 100 UNIT/ML INSULN.PEN 8 UNIT SC ×3 (08:56→17:02)
[2021-02-16] MEDS: Juven (unflavored) Packet 1 PACKET PO ×2 (08:57→17:03)
[2021-02-16] MEDS: Insulin Lispro 100 UNIT/ML INSULN.PEN SC ×4 (08:57→22:43)
[2021-02-16] MEDS: Famotidine 20 MG Tablet PO ×2 (08:57→22:28)
[2021-02-16] MEDS: Aspirin 81 MG TAB.CHEW PO (08:58)
[2021-02-16 09:00] VITALS: BP 142/75; PULSE 85
[2021-02-16] MEDS: Metoprolol(XL)Succ 25 MG Tablet PO (09:00)
[2021-02-16] MEDS: Acetaminophen 325 MG Tablet 650 MG PO ×2 (09:00→22:26)
--- NOTE | 2021-02-16 10:20 | CASEMGMT ---
Social Work SW spoke with Verito Page at [facility] and precert will need obtained prior to pt admission. Updated clinicals faxed. Will await return call on insurance determination. Plan: [facility], pending insurance precert ARNOLD Gómez
--- NOTE | 2021-02-16 11:15 | WOUNDNOTE ---
wound photo: right foot
[2021-02-16 11:40] LABS: Bedside Glucose 298 mg/dL (70-110)
--- NOTE | 2021-02-16 12:10 | PCM.PROGNOTE ---
Subjective Subjective Patient was seen today for follow up on feet. He is resting comfortably in chair with his daugther present. He has no new complaints. No fever, chills, nausea or vomiting. Objective Data Objective Data Vital Signs: Vital Signs Temp Pulse Resp BP Pulse Ox 98.1 F 85 16 142/75 H 93 02/16/21 08:22 02/16/21 09:00 02/16/21 08:22 02/16/21 09:00 02/16/21 08:22 Oxygen Flow Rate (L/min) 2 Oxygen Delivery Method Room Air Weight: 76.9 kg Body Mass Index (BMI) 24.0 Intake & Output: Intake and Output for Last 24 Hours 02/14/21 02/15/21 02/16/21 23:59 23:59 23:59 Intake Total 1940.5 / 1990.5 550 / 550 349.5 / 349.5 Output Total 1325 / 1575 1575 / 1575 250 / 250 Balance 615.5 / 415.5 -1025 / -1025 99.5 / 99.5 Lab / Micro Data Result Diagrams: 02/15/21 05:50 02/15/21 05:50 Labs: Laboratory Results - last 24 hr 02/15/21 05:50: ESR 45 H 02/15/21 05:50: C-React Prot Ext Range 243.00 H 02/15/21 12:03: POC Glucose 270 H 02/15/21 14:05: S.aureus Protein A PCR POSITIVE H, MRSA (PCR) Negative 02/15/21 16:51: POC Glucose 262 H 02/15/21 20:46: POC Glucose 306 H 02/16/21 06:52: POC Glucose 274 H 02/16/21 11:34: POC Glucose 298 H Micro: Microbiology 02/15/21 14:05 Wound - Right Foot Gram Stain - Final 02/14/21 00:40 Urine, Catheterized Urine Culture - Final Culture exhibits no growth. 02/13/21 23:29 Blood Culture (Wb) - Anticubital Left Blood Culture - Final Staphylococcus aureus 02/13/21 23:29 Blood Culture (Wb) - Right Hand Bacteria Detection (PCR) - Final Staphylococcus aureus 02/13/21 23:29 Blood Culture (Wb) - Right Hand Blood Culture - Final Staphylococcus aureus 02/14/21 00:42 Nasal Secretion SARS-CoV-2 Antigen (Rapid) - Final Radiography Diagnostic Testing: Radiology Impression Lower Extremity MRI 02/15/21 09:30 IMPRESSION: Mild bone edema of the amputated base of the first metatarsal suggestive of osteomyelitis. Fat replacement intrinsic muscles of the foot consistent with peripheral neuropathy. No demonstrated soft tissue abscess. Electronically Signed: Kamran Diaz MD at 12:40 EDT Tel , Service support , Physical Exam Const alert General Appearance: cooperative and lethargic Orientation / Consciousness: confused and disoriented HEENT normocephalic Extremity General Extremity: edema and no tenderness to palpation of joints or extremities; Negative for cyanosis Skin General Skin Exam: Negative for erythema Wound Narrative: Right foot with viable ulcer down to subcutaneous tissue, no maloder, no necrosis, no cellulitis, no evidence of infection. Left foot with no open lesions or tissue break down - no signs of infection left foot. 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 The right foot is very stable with no clinical signs of infection, there is no probe to bone, but on MRI right foot there is noted to be a small area of bone marrow edema to the residual 1st metatarsal. Reviewed right foot xrays - no gas or acute changes. This may possibly be source of his bacteremia. WBC is trending down. ESR and CRP are elevated. Reviewed culture results so far. Patient is on IV antibiotic therpay followed by ID service/Dr. Grove. Discussed with patient and his daughter about bone biopsy, as well as debridement of the residual 1st metatarsal - however there is concern of PVD to the lower extremity. There is no evidence of acute ischemia, however LEAS are pending will would like to check those first. Per patient and his daughter they would like to avoid surgery if possible. Continue with local wound care - daily dressing changes to right foot. Offload: Nonweightbearing right Vascular: He has abnormal palpable pulses with known delayed ulcer healing. Recommend noninvasive vascular studies; this was ordered. Host factors: He has multiple comorbidities that have contributed to delayed healing. Medical management per hospitalist is noted. Nutritional supplements were ordered to optimize healing; Walker. Podiatry will continue to follow.
[2021-02-16 15:00] VITALS: BP 117/58; PULSE 78; RESP 16; TEMP 36.4; O2SAT 95
--- NOTE | 2021-02-16 15:04 | PCM.PN.ID ---
Physical Exam Narrative More awake, feeling better. Const no apparent distress General Appearance: cooperative Resp normal air movement and clear to auscultation bilaterally Cardio regular rate and regular rhythm GI normal to inspection, nondistended, normoactive bowel sounds Skin Skin Narrative: foot wrapped ID ID: Route of nutrition/ use of supplements: [] Nutritional Intake: [] IV Site: [] [place] Catheter: [] Assessment & Plan Assessment/Plan (1) Bacteremia: PLAN: [facility] abx early this year. Reviewed photo R foot ulcer. Now bcx x2 (+) MSSA. Repeat bcx today. TTE no veg. MRI R foot with small area of chronic osteo. Recommended pod consult, seen yesterday, no plan for surgery at this point. Will follow
--- NOTE | 2021-02-16 17:01 | PN.HOSP_ITS ---
Subjective Subjective Patient was seen and examined today, he appears more alert today. Patient complains of some lower back pain but otherwise has no complaints of any fever chills or shortness of breath. Objective Data Objective Data Vital Signs: Vital Signs Temp Pulse Resp BP Pulse Ox 97.5 F L 78 16 117/58 L 95 02/16/21 15:00 02/16/21 15:00 02/16/21 15:00 02/16/21 15:00 02/16/21 15:00 Oxygen Flow Rate (L/min) 2 Oxygen Delivery Method Room Air Weight: 76.9 kg Body Mass Index (BMI) 24.0 Intake & Output: Intake and Output for Last 24 Hours 02/14/21 02/15/21 02/16/21 23:59 23:59 23:59 Intake Total 1940.5 / 1990.5 550 / 550 769.5 / 769.5 Output Total 1325 / 1575 1575 / 1575 500 / 500 Balance 615.5 / 415.5 -1025 / -1025 269.5 / 269.5 Lab / Micro Data Result Diagrams: 02/15/21 05:50 02/15/21 05:50 Labs: Laboratory Results - last 24 hr 02/15/21 14:05: S.aureus Protein A PCR POSITIVE H, MRSA (PCR) Negative 02/15/21 16:51: POC Glucose 262 H 02/15/21 20:46: POC Glucose 306 H 02/16/21 06:52: POC Glucose 274 H 02/16/21 11:34: POC Glucose 298 H Micro: Microbiology 02/13/21 23:29 Blood Culture (Wb) - Right Hand Bacteria Detection (PCR) - Final Staphylococcus aureus 02/13/21 23:29 Blood Culture (Wb) - Right Hand Blood Culture - Final Staphylococcus aureus 02/15/21 14:05 Wound - Right Foot Gram Stain - Final 02/15/21 14:05 Wound - Right Foot Wound Culture - Preliminary No growth-Final to follow 02/14/21 00:40 Urine, Catheterized Urine Culture - Final Culture exhibits no growth. 02/13/21 23:29 Blood Culture (Wb) - Anticubital Left Blood Culture - Final Staphylococcus aureus 02/14/21 00:42 Nasal Secretion SARS-CoV-2 Antigen (Rapid) - Final Radiography Diagnostic Testing: Radiology Impression Echocardiogram 02/14/21 20:40 Interpretation Summary The estimated ejection fraction is EF 40-45 %. Mild anteroapical Hypokinesia Ordering Physician: Basil Grove Referring Physician: [facility] Performed By: Corin Tobin, RDCS, RVT Foot X-Ray 02/15/21 16:15 IMPRESSION: Amputation at the level of the metatarsal bases without demonstrated radiographic active bone destruction. Electronically Signed: Kamran Diaz MD at 12:47 EDT Tel , Service support , Physical Exam Const alert and no apparent distress Constitutional Narrative: Patient is alert and follows simple instructions appropriately General Appearance: cooperative, well kempt and well developed Orientation / Consciousness: awake, oriented to person, oriented to place and oriented to time HEENT normocephalic, head/scalp atraumatic and moist oral mucous membranes Head and Scalp: normocephalic Eyes PERRL, EOMs intact bilaterally and conjunctivae normal Neck nuchal rigidity, supple, no JVD, thyroid normal and no carotid bruits General: trachea midline Resp normal respiratory effort, no retractions, no use of accessory muscles and clear to auscultation bilaterally Auscultation: Negative for rales, rhonchi or wheezes Cardio regular rate, regular rhythm, S1 normal heart sound, S2 normal heart sound, no murmurs, no rub and no gallops GI normal to inspection, nondistended, normoactive bowel sounds, soft to palpation, non-tender and non-distended Extremity no clubbing, cyanosis or edema Skin no rashes or lesions noted General Skin Exam: no breakdown Neuro CN's II-XII intact bilaterally Sensorium / Orientation: awake and alert Psych thought process normal Psych Narrative: Patient is alert and follows simple instructions appropriately Assessment & Plan Assessment/Plan (1) Osteomyelitis: (2) Bacteremia: (3) Benign essential hypertension: PLAN: 1. Bacteremia-probably secondary to staph aureus, reason unknown at this time, infectious diseases is seeing patient, antibiotic administration per infectious diseases #2 encephalopathy-possibly secondary to bacteremia, continue to offer supportive care, I have elected to stop the patient's Neurontin, I do not see any other medication that could be causing lethargy. 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
[2021-02-16] MEDS: Tamsulosin HCl 0.4 MG Capsule 0.8 MG PO (17:03)
[2021-02-16 17:35] LABS: Bedside Glucose 323 mg/dL (70-110)
[2021-02-16] MEDS: Atorvastatin Calcium 40 MG Tablet PO (22:28)
[2021-02-16 23:00] LABS: Bedside Glucose 297 mg/dL (70-110)
[2021-02-17] MEDS: Insulin Lispro 100 UNIT/ML INSULN.PEN SC ×4 (08:07→20:42)
[2021-02-17] MEDS: Insulin Lispro 100 UNIT/ML INSULN.PEN 8 UNIT SC ×3 (08:07→16:48)
[2021-02-17 08:08] VITALS: BP 161/84; PULSE 61
[2021-02-17] MEDS: Metoprolol(XL)Succ 25 MG Tablet PO (08:08)
[2021-02-17] MEDS: Juven (unflavored) Packet 1 PACKET PO ×2 (08:08→16:50)
[2021-02-17] MEDS: Aspirin 81 MG TAB.CHEW PO (08:08)
[2021-02-17] MEDS: Famotidine 20 MG Tablet PO ×2 (08:09→20:41)
[2021-02-17] MEDS: Acetaminophen 325 MG Tablet 650 MG PO ×2 (08:12→14:13)
[2021-02-17 08:25] LABS: Bedside Glucose 279 mg/dL (70-110)
[2021-02-17 08:40] VITALS: BP 161/84; PULSE 61; RESP 16; TEMP 36.6; O2SAT 96
[2021-02-17 12:00] LABS: Bedside Glucose 240 mg/dL (70-110)
[2021-02-17 12:33] LABS: International Normalized Ratio 3.4; Prothrombin Time (Protime)PT. 33.2 SECONDS (11.7-14.9)
[2021-02-17 13:48] VITALS: O2SAT 96
[2021-02-17 14:16] VITALS: BP 116/54; PULSE 84; RESP 18; TEMP 36.8; O2SAT 98
[2021-02-17] MEDS: Tamsulosin HCl 0.4 MG Capsule 0.8 MG PO (16:50)
[2021-02-17 17:00] LABS: Bedside Glucose 230 mg/dL (70-110)
--- NOTE | 2021-02-17 17:34 | PCM.PN.HOSP ---
Subjective Subjective Patient was seen and examined today, his blood culture resulted positive that was done on 02/16/2021. Patient has complaints of some back pain but no complaints of any fevers or chills. Objective Data Objective Data Vital Signs: Vital Signs Temp Pulse Resp BP Pulse Ox 98.3 F 84 18 116/54 L 98 02/17/21 14:16 02/17/21 14:16 02/17/21 14:16 02/17/21 14:16 02/17/21 14:16 Oxygen Flow Rate (L/min) 2 Oxygen Delivery Method Room Air Weight: 76.294 kg Body Mass Index (BMI) 24.0 Intake & Output: Intake and Output for Last 24 Hours 02/15/21 02/16/21 02/17/21 23:59 23:59 23:59 Intake Total 550 / 550 819.5 / 819.5 847.75 / 847.75 Output Total 1575 / 1575 1400 / 1400 1025 / 1025 Balance -1025 / -1025 -580.5 / -580.5 -177.25 / -177.25 Lab / Micro Data Result Diagrams: 02/15/21 05:50 02/15/21 05:50 Labs: Laboratory Results - last 24 hr 02/16/21 17:01: POC Glucose 323 H 02/16/21 22:41: POC Glucose 297 H 02/17/21 08:04: POC Glucose 279 H 02/17/21 11:35: PT 33.2 H, INR 3.4 02/17/21 11:52: POC Glucose 240 H 02/17/21 16:48: POC Glucose 230 H Micro: Microbiology 02/16/21 14:24 Blood Culture (Wb) - Anticubital Left Blood Culture - Preliminary 02/15/21 14:05 Wound - Right Foot Gram Stain - Final 02/15/21 14:05 Wound - Right Foot Wound Culture - Preliminary No growth-Final to follow 02/13/21 23:29 Blood Culture (Wb) - Right Hand Bacteria Detection (PCR) - Final Staphylococcus aureus 02/13/21 23:29 Blood Culture (Wb) - Right Hand Blood Culture - Final Staphylococcus aureus 02/14/21 00:40 Urine, Catheterized Urine Culture - Final Culture exhibits no growth. 02/13/21 23:29 Blood Culture (Wb) - Anticubital Left Blood Culture - Final Staphylococcus aureus 02/14/21 00:42 Nasal Secretion SARS-CoV-2 Antigen (Rapid) - Final Radiography Diagnostic Testing: Radiology Impression Extremity Arterial Study 02/15/21 15:37 Interpretation Summary Triphasic Doppler waveforms are noted at ankle level bilaterally. Pulse-volume recordings appear satisfactory at all levels bilaterally, though not assessed at digital level on the right. Resting ankle-brachial indices are normal bilaterally. The right digital-brachial index was not determined. The left digital-brachial index is normal. Arterial flow appears normal at ankle level bilaterally, and at digital level on the left. Arterial flow was not assessed at digital level on the right. Ordering Physician: Maryana Handy Referring Physician: [facility] Performed By: Sarita Kurtz RDCS/RVT Physical Exam Const alert and no apparent distress Constitutional Narrative: Patient appears older than his stated age General Appearance: cooperative, well kempt and well developed Orientation / Consciousness: awake, oriented to person, oriented to place and oriented to time HEENT normocephalic, head/scalp atraumatic and moist oral mucous membranes Head and Scalp: normocephalic Eyes PERRL, EOMs intact bilaterally and conjunctivae normal Neck nuchal rigidity, supple, no JVD, thyroid normal and no carotid bruits General: trachea midline Resp normal respiratory effort, no retractions, no use of accessory muscles and clear to auscultation bilaterally Auscultation: Negative for rales, rhonchi or wheezes Cardio regular rate, regular rhythm, S1 normal heart sound, S2 normal heart sound, no murmurs, no rub and no gallops GI normal to inspection, nondistended, normoactive bowel sounds, soft to palpation, non-tender and non-distended Extremity no clubbing, cyanosis or edema Skin no rashes or lesions noted General Skin Exam: no breakdown Neuro CN's II-XII intact bilaterally, no focal motor deficits and no sensory deficits noted Sensorium / Orientation: awake and alert Speech: speech normal Psych thought process normal and affect normal Assessment & Plan Assessment/Plan (1) Benign essential hypertension: (2) Osteomyelitis: (3) Bacteremia: PLAN: 1. Bacteremia-probably secondary to staph aureus, reason unknown at this time, infectious diseases is seeing patient, antibiotic administration per infectious diseases, patient had a positive blood culture from yesterday for gram-positive cocci #2 encephalopathy-metabolic in nature-this is improved at this time, patient is more alert #3 generalized debility-PT and OT are seeing patient #4 history of cerebrovascular disease (TIAs)-continue supportive care #5 paroxysmal atrial flutter-patient's INR today was elevated, patient's warfarin was held today #6 possible vascular dementia #7 type 2 diabetes-continue to monitor blood sugars #8 essential hypertension #9 hyperlipidemia #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
[2021-02-17 20:07] VITALS: BP 148/74; PULSE 82; RESP 18; TEMP 37.2; O2SAT 97
[2021-02-17] MEDS: Atorvastatin Calcium 40 MG Tablet PO (20:41)
[2021-02-17 20:56] LABS: Bedside Glucose 308 mg/dL (70-110)
[2021-02-18] VITALS (7 sets, daily range): BP systolic 127–163; BP diastolic 63–94; PULSE 78–87; RESP 14–18; TEMP 36.7–37; O2SAT 93–95
[2021-02-18] MEDS: Insulin Lispro 100 UNIT/ML INSULN.PEN SC ×4 (05:34→21:56)
[2021-02-18 05:44] LABS: International Normalized Ratio 3.4; Prothrombin Time (Protime)PT. 33.5 SECONDS (11.7-14.9)
[2021-02-18 06:45] LABS: Bedside Glucose 230 mg/dL (70-110)
[2021-02-18] MEDS: Metoprolol(XL)Succ 25 MG Tablet PO (08:25)
[2021-02-18] MEDS: Juven (unflavored) Packet 1 PACKET PO ×2 (08:25→16:49)
[2021-02-18] MEDS: Famotidine 20 MG Tablet PO ×2 (08:25→21:55)
[2021-02-18] MEDS: Aspirin 81 MG TAB.CHEW PO (08:25)
[2021-02-18] MEDS: Insulin Lispro 100 UNIT/ML INSULN.PEN 8 UNIT SC ×3 (08:26→16:15)
[2021-02-18] MEDS: Acetaminophen 325 MG Tablet 650 MG PO ×2 (08:27→20:17)
[2021-02-18 11:15] LABS: Bedside Glucose 273 mg/dL (70-110)
--- NOTE | 2021-02-18 12:07 | NURSING ---
pt refused to eat lunch pt stated maybe supper.
--- NOTE | 2021-02-18 14:08 | PCM.PN.HOSP ---
Subjective Subjective Patient was seen and examined today, he remains alert and appropriate to this examiner. Patient's blood culture yesterday was positive, I have reordered another blood culture today. Objective Data Objective Data Vital Signs: Vital Signs Temp Pulse Resp BP Pulse Ox 98.3 F 87 16 127/65 H 95 02/18/21 10:43 02/18/21 10:43 02/18/21 10:43 02/18/21 10:43 02/18/21 10:43 Oxygen Flow Rate (L/min) 2 Oxygen Delivery Method Room Air Weight: 78.426 kg Body Mass Index (BMI) 24.0 Intake & Output: Intake and Output for Last 24 Hours 02/16/21 02/17/21 02/18/21 23:59 23:59 23:59 Intake Total 819.5 / 819.5 997.75 / 997.75 398 / 398 Output Total 1400 / 1400 1875 / 1875 900 / 900 Balance -580.5 / -580.5 -877.25 / -877.25 -502 / -502 Lab / Micro Data Result Diagrams: 02/15/21 05:50 02/15/21 05:50 Labs: Laboratory Results - last 24 hr 02/17/21 16:48: POC Glucose 230 H 02/17/21 20:40: POC Glucose 308 H 02/18/21 05:15: PT 33.5 H, INR 3.4 02/18/21 05:33: POC Glucose 230 H 02/18/21 11:04: POC Glucose 273 H Micro: Microbiology 02/15/21 14:05 Wound - Right Foot Gram Stain - Final 02/15/21 14:05 Wound - Right Foot Wound Culture - Preliminary Staphylococcus aureus 02/15/21 14:05 Wound - Right Foot Anaerobic Culture - Final No anaerobic bacteria isolated. 02/16/21 14:24 Blood Culture (Wb) - Anticubital Left Blood Culture - Preliminary Staphylococcus aureus 02/13/21 23:29 Blood Culture (Wb) - Right Hand Bacteria Detection (PCR) - Final Staphylococcus aureus 02/13/21 23:29 Blood Culture (Wb) - Right Hand Blood Culture - Final Staphylococcus aureus 02/14/21 00:40 Urine, Catheterized Urine Culture - Final Culture exhibits no growth. 02/13/21 23:29 Blood Culture (Wb) - Anticubital Left Blood Culture - Final Staphylococcus aureus 02/14/21 00:42 Nasal Secretion SARS-CoV-2 Antigen (Rapid) - Final Physical Exam Const alert, no apparent distress and healthy appearing General Appearance: cooperative, well kempt and well developed Orientation / Consciousness: awake, oriented to person, oriented to place and oriented to time HEENT normocephalic, head/scalp atraumatic and moist oral mucous membranes Head and Scalp: normocephalic Eyes PERRL, EOMs intact bilaterally and conjunctivae normal Neck nuchal rigidity, supple, no JVD, thyroid normal and no carotid bruits General: trachea midline Resp normal respiratory effort, no retractions, no use of accessory muscles and clear to auscultation bilaterally Auscultation: Negative for rales, rhonchi or wheezes Cardio regular rate, regular rhythm, S1 normal heart sound, S2 normal heart sound, no murmurs, no rub and no gallops GI normal to inspection, nondistended, normoactive bowel sounds, soft to palpation, non-tender and non-distended Extremity no clubbing, cyanosis or edema Skin no rashes or lesions noted General Skin Exam: no breakdown Neuro CN's II-XII intact bilaterally, no focal motor deficits and no sensory deficits noted Sensorium / Orientation: awake and alert Speech: speech normal Psych thought process normal and affect normal Assessment & Plan Assessment/Plan (1) Bacteremia: (2) Benign essential hypertension: (3) Osteomyelitis: PLAN: 1. Bacteremia-probably secondary to staph aureus, reason unknown at this time, infectious diseases is seeing patient, antibiotic administration per infectious diseases, patient had a positive blood culture from yesterday for gram-positive cocci, patient may need a LOTTIE performed, ID will advise #2 encephalopathy-metabolic in nature-this is improved at this time, patient is more alert #3 generalized debility-PT and OT are seeing patient #4 history of cerebrovascular disease (TIAs)-continue supportive care #5 paroxysmal atrial flutter-patient's INR today was elevated, patient's warfarin was stopped today, recheck INR tomorrow #6 possible vascular dementia #7 type 2 diabetes-continue to monitor blood sugars #8 essential hypertension #9 hyperlipidemia #10 peripheral neuropathy secondary to type 2 diabetes #11 probable chronic osteomyelitis of the right foot-podiatry is participating in his care, no surgical intervention is planned at this point #12 cardiomyopathy-echocardiogram showed reduced ejection fraction of 40 to 45%, patient has no evidence for congestive heart failure at this time Charges/Coding Visit Charges Inpatient E&M: 55916 Subs Hosp L2
[2021-02-18 16:25] LABS: Bedside Glucose 275 mg/dL (70-110)
[2021-02-18] MEDS: Tamsulosin HCl 0.4 MG Capsule 0.8 MG PO (16:49)
[2021-02-18 20:51] LABS: Bedside Glucose 168 mg/dL (70-110)
[2021-02-18] MEDS: Atorvastatin Calcium 40 MG Tablet PO (21:55)
[2021-02-19 02:42] VITALS: BP 146/68; PULSE 81; RESP 18; TEMP 36.8; O2SAT 93
[2021-02-19] MEDS: Acetaminophen 325 MG Tablet 650 MG PO (05:06)
[2021-02-19] MEDS: Menthol/Lanolin/Calamine/Znox 113 GM Tube 1 APPLIC TOPICAL ×3 (05:06→21:40)
[2021-02-19 06:33] LABS: International Normalized Ratio 3.3; Prothrombin Time (Protime)PT. 32.5 SECONDS (11.7-14.9)
[2021-02-19 07:40] LABS: Bedside Glucose 181 mg/dL (70-110)
[2021-02-19 08:01] VITALS: BP 156/85; PULSE 71; RESP 16; TEMP 36.4; O2SAT 96
[2021-02-19] MEDS: Aspirin 81 MG TAB.CHEW PO (08:14)
[2021-02-19] MEDS: Insulin Lispro 100 UNIT/ML INSULN.PEN SC ×4 (08:14→21:58)
[2021-02-19] MEDS: Juven (unflavored) Packet 1 PACKET PO ×2 (08:14→16:29)
[2021-02-19] MEDS: Insulin Lispro 100 UNIT/ML INSULN.PEN 8 UNIT SC ×3 (08:14→16:33)
--- NOTE | 2021-02-19 09:14 | WOUNDNOTE ---
wound photo: right foot
[2021-02-19 09:26] VITALS: PULSE 71
[2021-02-19] MEDS: Metoprolol(XL)Succ 25 MG Tablet PO (09:26)
[2021-02-19] MEDS: Famotidine 20 MG Tablet PO ×2 (09:27→21:41)
[2021-02-19 11:26] LABS: Bedside Glucose 237 mg/dL (70-110)
--- NOTE | 2021-02-19 12:12 | CASEMGMT ---
Social Work Note JOSE LUIS placed a call to Roseline Page at [facility] to inquire about pre-cert. Roseline Page states pt's insurance is requesting updating clinicals from the weekend. JOSE LUIS faxed updated clinicals to Roseline Page at [facility]. Plan: [facility] pending pre-cert Claudia Cespedes CLINICAL TECHNOLOGIST, FINISH CARPENTER
--- NOTE | 2021-02-19 13:05 | PN.HOSP_ITS ---
Subjective Subjective Patient remains persistently confused. Daughter is on the phone and I discussed the case with her. She states he has been confused since his infection in November but is worse acutely in the last few days. He is having intermittent hallucinations. He had an MRI that was negative for any new findings. It seems that his encephalopathy is slowly improving but the daughter is still concerned about his baseline. Objective Data Objective Data Vital Signs: Vital Signs Temp Pulse Resp BP Pulse Ox 97.5 F L 71 16 156/85 H 96 02/19/21 08:01 02/19/21 09:26 02/19/21 08:01 02/19/21 08:01 02/19/21 08:01 Oxygen Flow Rate (L/min) 2 Oxygen Delivery Method Room Air Weight: 78.426 kg Body Mass Index (BMI) 24.0 Intake & Output: Intake and Output for Last 24 Hours 02/17/21 02/18/21 02/19/21 23:59 23:59 23:59 Intake Total 997.75 / 997.75 1304.25 / 1304.25 373.75 / 373.75 Output Total 1875 / 1875 1100 / 1100 550 / 550 Balance -877.25 / -877.25 204.25 / 204.25 -176.25 / -176.25 Lab / Micro Data Result Diagrams: 02/15/21 05:50 02/15/21 05:50 Labs: Laboratory Results - last 24 hr 02/18/21 16:14: POC Glucose 275 H 02/18/21 20:47: POC Glucose 168 H 02/19/21 06:05: PT 32.5 H, INR 3.3 02/19/21 07:30: POC Glucose 181 H 02/19/21 11:08: POC Glucose 237 H Micro: Microbiology 02/17/21 10:20 Blood Culture (Wb) - Anticubital Left Blood Culture - Final Staphylococcus aureus 02/15/21 14:05 Wound - Right Foot Gram Stain - Final 02/15/21 14:05 Wound - Right Foot Wound Culture - Final Staphylococcus aureus 02/15/21 14:05 Wound - Right Foot Anaerobic Culture - Final No anaerobic bacteria isolated. 02/16/21 14:24 Blood Culture (Wb) - Anticubital Left Blood Culture - Preliminary Staphylococcus aureus 02/13/21 23:29 Blood Culture (Wb) - Right Hand Bacteria Detection (PCR) - Final Staphylococcus aureus 02/13/21 23:29 Blood Culture (Wb) - Right Hand Blood Culture - Final Staphylococcus aureus 02/14/21 00:40 Urine, Catheterized Urine Culture - Final Culture exhibits no growth. 02/13/21 23:29 Blood Culture (Wb) - Anticubital Left Blood Culture - Final Staphylococcus aureus 02/14/21 00:42 Nasal Secretion SARS-CoV-2 Antigen (Rapid) - Final Physical Exam Const alert, oriented x3, no apparent distress, average body habitus and well nourished Exam Limitations: no limitations HEENT head/scalp atraumatic and moist oral mucous membranes HEENT Narrative: Poor dentition with several teeth broken and missing and inflammation noted Head and Scalp: normocephalic Eyes PERRL, EOMs intact bilaterally and conjunctivae normal Neck no lymphadenopathy, supple and no JVD Neck Narrative: Trachea midline, no thyroid enlargement noted Resp normal respiratory effort, no retractions, no use of accessory muscles and clear to auscultation bilaterally Auscultation: Negative for crackles, rales, rhonchi or wheezes Cardio regular rate, regular rhythm, S1 normal heart sound, S2 normal heart sound, no murmurs, no rub, no gallops and no JVD GI normal to inspection, nondistended, normoactive bowel sounds, soft to palpation, non-tender and non-distended; Negative for hepatosplenomegaly Extremity no clubbing, cyanosis or edema Peripheral Pulses: Yes pulses 2+ throughout Skin skin turgor normal, no jaundice, no petechiae and no mottling Skin Narrative: Right lower extremity foot with dressing in place-diabetic foot wound--> discussed with wound care and they state that the wound looks good without any significant drainage, no rashes Neuro CN's II-XII intact bilaterally, moves all extremities and no focal motor deficits Neuro Narrative: Oriented to self, month, year, present [place], was unable to tell me what hospital he was at at this time. Sensorium / Orientation: awake and alert Speech: speech normal Psych Psych Narrative: Affect is somewhat strange but eye contact is good and patient does not seem depressed or anxious Assessment & Plan Assessment/Plan (1) MSSA bacteremia: (2) Metabolic encephalopathy: (3) Debility: PLAN: MSSA bacteremia -Source is unknown at this time--> mouth versus foot -Foot wound appears clean and dry without any significant drainage and does not appear infected -Has had multiple issues with his dentition and chronic infections -Initial blood cultures positive on 02/15/2021 with repeat cultures positive on 02/17/2021 -Cultures repeated again on the -TTE ED negative for vegetations but with persistent bacteremia I have questioned ID if they would like a LOTTIE done -If so we will consult cardiology -Antibiotics per infectious disease Metabolic encephalopathy -Per documentation and appears to be slowly improving -Family is still concerned however -Has had mental status issues since November but per daughter he has been worse with this episode -Suspect that he may have some underlying dementia with acute delirium related to his infection -MRI negative for any acute process on 02/12/2021 but does show chronic ischemic changes -We will continue to monitor Dysphagia -Patient had a modified barium swallow on 02/13/2021 -Recommended diet is mechanical soft with soft and bite-size portions and honey thick liquids -Continue speech therapy -Will need continued speech therapy upon discharge as well HFrEF -Patient is currently hemodynamically stable and compensated -Continue metoprolol -Continue to monitor with volume status -Continue aspirin Hyperlipidemia -Continue Lipitor DM-2 -Continue Lantus 30 units at at bedtime -Continue lispro 3 times daily -Continue sliding scale -Continue Accu-Cheks GERD -Continue famotidine History of TIA/stroke -Continue PT/OT/speech therapy -MRI with no evidence of acute infarct History of atrial flutter -Continue metoprolol -Patient is fully anticoagulated with Coumadin -Coumadin is currently on hold secondary to supratherapeutic INR -3.4 yesterday and 3.3 today -Repeat INR in a.m. and suspect we will be able to reinitiate Coumadin tomorrow at a lower dose DVT prophylaxis -Full anticoagulation CODE STATUS -Full code - Charges/Coding Visit Charges Inpatient E&M: [address] [facility] Hosp L3
--- NOTE | 2021-02-19 14:28 | PCM.PN.ID ---
Physical Exam Narrative Feeling better, no fever Const no apparent distress Resp clear to auscultation bilaterally Cardio regular rate and regular rhythm GI normal to inspection, nondistended, normoactive bowel sounds Skin Skin Narrative: no new rash ID ID: Route of nutrition/ use of supplements: [] Nutritional Intake: [] IV Site: [] Toscano Catheter: [] Assessment & Plan Assessment/Plan (1) Bacteremia: PLAN: [facility] early this [facility]. Reviewed photo R foot ulcer. Now bcx x2 (+) MSSA. Repeat bcx today. TTE no veg. MRI R foot with small area of chronic osteo. Podiatry, no plan for surgery at this point. Recommend LOTTIE. Will follow, d/w Dr. Alonso
[2021-02-19 14:34] VITALS: BP 148/79; PULSE 78; RESP 16; TEMP 36.6; O2SAT 95
[2021-02-19] MEDS: Tamsulosin HCl 0.4 MG Capsule 0.8 MG PO (16:28)
[2021-02-19 16:51] LABS: Bedside Glucose 254 mg/dL (70-110)
[2021-02-19] MEDS: Atorvastatin Calcium 40 MG Tablet PO (21:41)
[2021-02-19 21:45] VITALS: BP 158/73; PULSE 80; RESP 17; TEMP 37.1; O2SAT 94
[2021-02-19 22:06] LABS: Bedside Glucose 253 mg/dL (70-110)
[2021-02-20] MEDS: Acetaminophen 325 MG Tablet 650 MG PO (01:20)
[2021-02-20 03:45] VITALS: BP 144/72; PULSE 75; RESP 16; TEMP 37.2; O2SAT 95
[2021-02-20 06:44] LABS: Absolute Lymphocyte Count 2.41 X10^3/uL (0.83-4.51); Absolute Neutrophil Count 11.1 X10^3/uL (2.0-7.7); Basophil# 0.02 X10^3/uL; Basophil% 0.1 % (0-1); Eosinophils% 0.7 % (0-5); Hematocrit 27.4 % (40-54); Hemoglobin 9.1 g/dL (13.0-16.5); Lymphocyte # 2.41 X10^3/ul (0.83-4.51); Lymphocyte % 16.7 % (19-41); Mean Corp Hgb Conc 33.2 g/dL (32-36); Mean Corpuscular Hgb 27.5 pg (27.0-32.0); Mean Corpuscular Volume 82.8 fL (80-94); Mean Platelet Vol. 9.2 fl (6.2-12.0); Monocyte# 0.75 X10^3/uL; Monocyte% 5.2 % (0-10); NRBC Flagged by Analyzer 0 % (0-5); Neutrophil # 11.07 X10^3/uL (2.7-7.7); Neutrophil % 76.7 % (47-70); Platelet Count 387 K/mm3 (150-450); RBC Distribution Width CV 13.6 % (11.6-14.6); RBC Distribution Width SD 41.1 fl (35.1-43.9); Red Blood Count 3.31 M/mm3 (4.6-6.2); White Blood Count 14.4 K/mm3 (4.4-11.0)
[2021-02-20 07:05] LABS: International Normalized Ratio 2.5; Prothrombin Time (Protime)PT. 26.4 SECONDS (11.7-14.9)
[2021-02-20 07:13] LABS: ALB/GLOB Ratio 0.4 RATIO (0.9-2.4); AST(SGOT) 20 U/L (15-37); Alanine Aminotransfer ALT/SGPT 19 U/L (16-61); Albumin, Serum 1.7 g/dL (3.2-5.0); Alkaline Phosphatase 36 U/L (45-117); Anion Gap 5 (5-15); BUN 27 mg/dL (7-18); BUN/Creat Ratio 23.7 RATIO (10-20); Calcium,Total 8.2 mg/dL (8.5-10.1); Chloride 103 mmol/L (98-107); Creatinine, Serum 1.14 mg/dL (0.70-1.30); EST Glomerular Filtration Rate 67 mL/min (>60); Est Glom Filt Rate - Afr Amer 81 mL/min (>60); Estimated Creatinine Clearance 57.71 ml/min; Globulin 4.7 g/dL (2.2-4.2); Glucose 173 mg/dL (74-106); Protein, Total 6.4 g/dL (6.4-8.2); Sodium Level 140 mmol/L (136-145)
--- NOTE | 2021-02-20 07:32 | PN_ITS ---
Subjective Subjective Patient seen and examined resting comfortably. Patient denies any new pedal complaints. Patient denies any nausea, fever, chills, chest pain, shortness of breath, cough, streaking, purulence, vomiting. Objective Data Objective Data Vital Signs: Vital Signs Temp Pulse Resp BP Pulse Ox 98.9 F 75 16 144/72 H 95 02/20/21 03:45 02/20/21 03:45 02/20/21 03:45 02/20/21 03:45 02/20/21 03:45 Oxygen Flow Rate (L/min) 2 Oxygen Delivery Method Room Air Weight: 77.9 kg Body Mass Index (BMI) 24.0 Intake & Output: Intake and Output for Last 24 Hours 02/18/21 02/19/21 02/20/21 23:59 23:59 23:59 Intake Total 1304.25 / 1304.25 423.75 / 423.75 50 / 50 Output Total 1100 / 1100 1900 / 1900 600 / 600 Balance 204.25 / 204.25 -1476.25 / -1476.25 -550 / -550 Lab / Micro Data Result Diagrams: 02/20/21 06:25 02/20/21 06:25 Labs: Laboratory Results - last 24 hr 02/19/21 07:30: POC Glucose 181 H 02/19/21 11:08: POC Glucose 237 H 02/19/21 16:30: POC Glucose 254 H 02/19/21 21:56: POC Glucose 253 H 02/20/21 06:25: PT 26.4 H, INR 2.5 02/20/21 06:25: WBC 14.4 H, RBC 3.31 L, Hgb 9.1 L, Hct 27.4 L, MCV 82.8, MCH 27.5, MCHC 33.2, RDW Std Deviation 41.1, RDW Coeff of Fernando 13.6, Plt Count 387, MPV 9.2, Immature Gran % (Auto) 0.600, Neut % (Auto) 76.7 H, Lymph % (Auto) 16.7 L, [place] % (Auto) 5.2, Eos % (Auto) 0.7, Baso % (Auto) 0.1, Absolute Neuts (auto) 11.1 H, Absolute Lymphs (auto) 2.41, Nucleated RBC % 0 02/20/21 06:25: Sodium 140, Potassium 3.0 L, Chloride 103, Carbon Dioxide 32.0, Anion Gap 5, BUN 27 H, Creatinine 1.14, Estim Creat Clear Calc 57.71, Est GFR (MDRD) Af Amer 81, Est GFR (MDRD) Non-Af 67, BUN/Creatinine Ratio 23.7 H, Glucose 173 H, Calcium 8.2 L, Total Bilirubin 0.40, AST 20, ALT 19, Alkaline Phosphatase 36 L, Total Protein 6.4, Albumin 1.7 L, Globulin 4.7 H, Albumin/ Globulin Ratio 0.4 L Micro: Microbiology 02/17/21 10:20 Blood Culture (Wb) - Anticubital Left Blood Culture - Final Staphylococcus aureus 02/15/21 14:05 Wound - Right Foot Gram Stain - Final 02/15/21 14:05 Wound - Right Foot Wound Culture - Final Staphylococcus aureus 02/15/21 14:05 Wound - Right Foot Anaerobic Culture - Final No anaerobic bacteria isolated. 02/16/21 14:24 Blood Culture (Wb) - Anticubital Left Blood Culture - Preliminary Staphylococcus aureus 02/13/21 23:29 Blood Culture (Wb) - Right Hand Bacteria Detection (PCR) - Final Staphylococcus aureus 02/13/21 23:29 Blood Culture (Wb) - Right Hand Blood Culture - Final Staphylococcus aureus 02/14/21 00:40 Urine, Catheterized Urine Culture - Final Culture exhibits no growth. 02/13/21 23:29 Blood Culture (Wb) - Anticubital Left Blood Culture - Final Staphylococcus aureus 02/14/21 00:42 Nasal Secretion SARS-CoV-2 Antigen (Rapid) - Final Physical Exam Const alert General Appearance: cooperative HEENT normocephalic Extremity General Extremity: edema and no tenderness to palpation of joints or extremities; Negative for cyanosis Skin General Skin Exam: Negative for erythema Wound Narrative: Right foot with viable plantar ulcer down to subcutaneous tissue, no maloder, no necrosis, no cellulitis, no evidence of infection. Left foot with no open lesions or tissue break down - no signs of infection left foot. Right TMA noted. 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 The right foot is very stable with no clinical signs of infection, there is no probe to bone, but on MRI right foot there is noted to be a small area of bone marrow edema to the residual 1st metatarsal. Reviewed right foot xrays - no gas or acute changes. This may possibly be source of his bacteremia. Leukocytosis noted. ESR and CRP are elevated. Reviewed culture results so far. Blood cultures are noted to be positive for staph aureus. Right foot wound noted to also be positive for staph aureus. Patient is on IV antibiotic therpay followed by ID service/Dr. Grove. LAS obtained 02/16/2021 demonstrate triphasic bilateral pedal pulses with ABIs within the normal range Continue with local wound care - daily dressing changes to right foot. Offload: Nonweightbearing right Host factors: He has multiple comorbidities that have contributed to delayed healing. Medical management per hospitalist is noted. Nutritional supplements were ordered to optimize healing; Walker. Podiatry will continue to follow periodically while in house. Patient is okay to discharge from podiatry standpoint. No podiatry surgical intervention at this time. Patient follow-up in the office in the outpatient setting in 1 week after discharge All questions answered.
[2021-02-20 07:33] VITALS: BP 153/69; PULSE 76; RESP 18; TEMP 36.9; O2SAT 94
--- NOTE | 2021-02-20 09:35 | CASEMGMT ---
JOSE LUIS spoke w/physician, pt is not ready for discharge today. SW called daughter to let her know, she was aware. SW also asked about pt's vaccination status as [facility] had left a message inquiring, she states pt is vaccinated and in fact was to get the booster in March. JOSE LUIS also called Roseline Page at [facility] to let her know. SW also let Roseline Page know that pt has been vaccinated. SW explained pt will likely need IV antibiotics, will let Roseline Page know as soon as we know what medication pt will need at discharge. JOSE LUIS will continue to follow. INDY Fink
[2021-02-20 09:41] LABS: Bedside Glucose 158 mg/dL (70-110)
--- NOTE | 2021-02-20 10:00 | ECHOTEE_ITS ---
Reason For Study: Bacteremia Medication LOTTIE probe 6VT-D (SN [id number]) passed with minimal difficulty. No complications were noted. Cetacaine Topical [place] given X3 orally. Versed 2 mg given slow IVP. Fentanyl 50 mcg given slow IVP. Performed a rapid injection of agitated mix of 9 cc saline and 1cc air to assess for atrial septal defect. Left Ventricle Normal LV size. Left ventricular systolic function is normal. The estimated ejection fraction is 55 %. No regional wall motion abnormalities noted. Right Ventricle Normal RV size. Normal systolic function. Atria Bubble contrast study negative for right to left interatrial shunt. Normal left atrium. Normal right atrium. Mitral Valve Normal mitral valve. Aortic Valve Trisinus/trileaflet aortic valve. Mild (1+) aortic valve insufficiency. Pulmonic Valve Normal pulmonic valve. Vessels Mildly dilated aortic root. Mild atherosclerosis of the aortic arch. The pulmonary artery is normal size. Pericardium No pericardial effusion. ECHO/Echo Transesophageal (LOTTIE) Interpretation Summary Normal LV size. Left ventricular systolic function is normal. The estimated ejection fraction is 55 %. Trisinus/trileaflet aortic valve. Mild (1+) aortic valve insufficiency. No valvular vegetations seen Ordering Physician: Gardenia Alonso Performed By: Carie Kam RDCS
--- NOTE | 2021-02-20 10:04 | PCM.PN.ID ---
Physical Exam Narrative Sleeping s/p LOTTIE Const no apparent distress Resp normal air movement and clear to auscultation bilaterally Cardio regular rate and regular rhythm GI normal to inspection, nondistended, normoactive bowel sounds Extremity no clubbing, cyanosis or edema Skin Skin Narrative: no new rash ID ID: Route of nutrition/ use of supplements: [] Nutritional Intake: [] IV Site: [] Toscano Catheter: [] Assessment & Plan Assessment/Plan (1) Bacteremia: PLAN: [facility]x early this year. Reviewed photo R foot ulcer. Now bcx x2 (+) MSSA. Repeat bcx today. TTE no veg. MRI R foot with small area of chronic osteo. Podiatry, no plan for surgery at this point. LOTTIE showed no veg. Will change zosyn to cefazolin. Will follow, d/w Dr. Alonso
[2021-02-20] MEDS: Insulin Lispro 100 UNIT/ML INSULN.PEN 8 UNIT SC ×2 (11:00→17:32)
[2021-02-20 11:01] VITALS: PULSE 78
[2021-02-20] MEDS: Famotidine 20 MG Tablet PO ×2 (11:01→21:45)
[2021-02-20] MEDS: Insulin Lispro 100 UNIT/ML INSULN.PEN SC ×2 (11:01→21:47)
[2021-02-20] MEDS: Aspirin 81 MG TAB.CHEW PO (11:01)
[2021-02-20] MEDS: Metoprolol(XL)Succ 25 MG Tablet PO (11:01)
[2021-02-20] MEDS: Menthol/Lanolin/Calamine/Znox 113 GM Tube 1 APPLIC TOPICAL ×2 (11:02→21:44)
[2021-02-20] MEDS: Juven (unflavored) Packet 1 PACKET PO ×2 (11:02→17:33)
[2021-02-20 12:21] LABS: Bedside Glucose 144 mg/dL (70-110)
--- NOTE | 2021-02-20 12:43 | PN.HOSP_ITS ---
Subjective Subjective Patient is mildly sleepy as he just completed his LOTTIE. No issues overnight. No current complaints. Objective Data Objective Data Vital Signs: Vital Signs Temp Pulse Resp BP Pulse Ox 98.4 F 78 18 153/69 H 94 02/20/21 07:33 02/20/21 11:01 02/20/21 07:33 02/20/21 07:33 02/20/21 07:33 Oxygen Flow Rate (L/min) 2 Oxygen Delivery Method Room Air Weight: 77.9 kg Body Mass Index (BMI) 24.0 Intake & Output: Intake and Output for Last 24 Hours 02/18/21 02/19/21 02/20/21 23:59 23:59 23:59 Intake Total 1304.25 / 1304.25 423.75 / 423.75 68.96 / 68.96 Output Total 1100 / 1100 1900 / 1900 600 / 600 Balance 204.25 / 204.25 -1476.25 / -1476.25 -531.04 / -531.04 Lab / Micro Data Result Diagrams: 02/20/21 06:25 02/20/21 06:25 Labs: Laboratory Results - last 24 hr 02/19/21 16:30: POC Glucose 254 H 02/19/21 21:56: POC Glucose 253 H 02/20/21 06:25: PT 26.4 H, INR 2.5 02/20/21 06:25: WBC 14.4 H, RBC 3.31 L, Hgb 9.1 L, Hct 27.4 L, MCV 82.8, MCH 27.5, MCHC 33.2, RDW Std Deviation 41.1, RDW Coeff of Fernando 13.6, Plt Count 387, MPV 9.2, Immature Gran % (Auto) 0.600, Neut % (Auto) 76.7 H, Lymph % (Auto) 16.7 L, [place] % (Auto) 5.2, Eos % (Auto) 0.7, Baso % (Auto) 0.1, Absolute Neuts (auto) 11.1 H, Absolute Lymphs (auto) 2.41, Nucleated RBC % 0 02/20/21 06:25: Sodium 140, Potassium 3.0 L, Chloride 103, Carbon Dioxide 32.0, Anion Gap 5, BUN 27 H, Creatinine 1.14, Estim Creat Clear Calc 57.71, Est GFR (MDRD) Af Amer 81, Est GFR (MDRD) Non-Af 67, BUN/Creatinine Ratio 23.7 H, Glucose 173 H, Calcium 8.2 L, Total Bilirubin 0.40, AST 20, ALT 19, Alkaline Phosphatase 36 L, Total Protein 6.4, Albumin 1.7 L, Globulin 4.7 H, Albumin/Globulin Ratio 0.4 L 02/20/21 09:32: POC Glucose 158 H 02/20/21 12:16: POC Glucose 144 H Micro: Microbiology 02/18/21 14:44 Blood Culture (Wb) - Anticubital Left Blood Culture - P reliminary 02/16/21 14:24 Blood Culture (Wb) - Anticubital Left Blood Culture - Final Staphylococcus aureus 02/17/21 10:20 Blood Culture (Wb) - Anticubital Left Blood Culture - Final Staphylococcus aureus 02/15/21 14:05 Wound - Right Foot Gram Stain - Final 02/15/21 14:05 Wound - Right Foot Wound Culture - Final Staphylococcus aureus 02/15/21 14:05 Wound - Right Foot Anaerobic Culture - Final No anaerobic bacteria isolated. 02/13/21 23:29 Blood Culture (Wb) - Right Hand Bacteria Detection (PCR) - Final Staphylococcus aureus 02/13/21 23:29 Blood Culture (Wb) - Right Hand Blood Culture - Final Staphylococcus aureus 02/14/21 00:40 Urine, Catheterized Urine Culture - Final Culture exhibits no growth. 02/13/21 23:29 Blood Culture (Wb) - Anticubital Left Blood Culture - Final Staphylococcus aureus 02/14/21 00:42 Nasal Secretion SARS-CoV-2 Antigen (Rapid) - Final Radiography Diagnostic Testing: Radiology Impression Transesophageal Echocardiogram 02/20/21 10:00 Interpretation Summary Normal LV size. Left ventricular systolic function is normal. The estimated ejection fraction is 55 %. Trisinus/trileaflet aortic valve. Mild (1+) aortic valve insufficiency. No valvular vegetations seen Ordering Physician: Gardenia Alonso Performed By: Carie Kam RDCS Physical Exam Const alert, oriented x3, no apparent distress, average body habitus, healthy appearing and well nourished Constitutional Narrative: Older white male lying in bed, just returned from LOTTIE, appears older than his stated age, nontoxic-appearing General Appearance: cooperative, well kempt and well developed Orientation / Consciousness: awake, oriented to person, oriented to place and oriented to time Exam Limitations: altered mental status Nutritional Appearance: overweight HEENT normocephalic, head/scalp atraumatic and moist oral mucous membranes Head and Scalp: normocephalic Neck nuchal rigidity, supple and thyroid normal General: trachea midline Resp normal respiratory effort, no retractions, no use of accessory muscles and clear to auscultation bilaterally Auscultation: Negative for crackles, rales, rhonchi or wheezes Cardio regular rate, regular rhythm, S1 normal heart sound, S2 normal heart sound, no murmurs, no rub, no gallops, no clicks and no JVD GI normal to inspection, nondistended, normoactive bowel sounds, soft to palpation, non-tender and non-distended; Negative for hepatosplenomegaly Extremity normal to inspection and no clubbing, cyanosis or edema Extremity Narrative: 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, pedal pulses on left foot are 1+ Skin no rashes or lesions noted, skin turgor normal, no jaundice, no petechiae and no mottling Skin Narrative: Right lower extremity foot with dressing in place-diabetic foot wound--> discussed with wound care and they state that the wound looks good without any significant drainage, no rashes General Skin Exam: no breakdown Neuro moves all extremities and no focal motor deficits Sensorium / Orientation: awake and alert Speech: speech normal Psych thought process normal Assessment & Plan Assessment/Plan (1) MSSA bacteremia: (2) Metabolic encephalopathy: (3) Debility: PLAN: MSSA bacteremia -Source is unknown at this time--> mouth versus foot -Foot wound appears clean and dry without any significant drainage and does not appear infected -Has had multiple issues with his dentition and chronic infections -Initial blood cultures positive on 02/15/2021 with repeat cultures positive on 02/17/2021 and 02/18/2021 -Per infectious disease repeat blood cultures were ordered yesterday -TTE negative for vegetations/LOTTIE done on 02/20/2021--> no valvular vegetations, EF 55%, mild aortic valve insufficiency -Antibiotics per infectious disease Metabolic encephalopathy -Slowly improving -Has outpatient work-up pending for vascular dementia -Has had mental status issues since November but per daughter he has been worse with this episode -Suspect that he may have some underlying dementia with acute delirium related to his infection -MRI negative for any acute process on 02/12/2021 but does show chronic ischemic changes -We will continue to monitor Dysphagia -Patient had a modified barium swallow on 02/13/2021 -Recommended diet is mechanical soft with soft and bite-size portions and honey thick liquids -Continue speech therapy -Will need continued speech therapy upon discharge as well HFrEF -Patient is currently hemodynamically stable and compensated -Continue metoprolol -Continue to monitor with volume status -Continue aspirin -EF normalized on LOTTIE 55% Hyperlipidemia -Continue Lipitor DM-2 -Continue Lantus 30 units at at bedtime -Continue lispro 3 times daily -Continue sliding scale -Continue Accu-Cheks -Blood sugars overall within goal ranges today 140-180 GERD -Continue famotidine History of TIA/stroke -Continue PT/OT/speech therapy -MRI with no evidence of acute infarct History of atrial flutter -Continue metoprolol -Patient is fully anticoagulated with Coumadin -Coumadin was on hold secondary to supratherapeutic INR - INR down to 2.5 today -Restart Coumadin at 3 mg daily today -Continue to monitor daily INR DVT prophylaxis -Full anticoagulation CODE STATUS -Full code
[2021-02-20] MEDS: Cefazolin 2 GM in 0.9% Normal Saline 100 ML IV ×2 (13:56→21:43)
[2021-02-20 14:01] VITALS: BP 147/60; PULSE 79; RESP 16; TEMP 36.6; O2SAT 93
[2021-02-20 17:11] LABS: Bedside Glucose 136 mg/dL (70-110)
[2021-02-20] MEDS: Tamsulosin HCl 0.4 MG Capsule 0.8 MG PO (17:33)
[2021-02-20 17:46] VITALS: PULSE 87
[2021-02-20] MEDS: Atorvastatin Calcium 40 MG Tablet PO (21:45)
[2021-02-20 21:50] VITALS: BP 148/75; PULSE 79; RESP 16; TEMP 37.2; O2SAT 93
[2021-02-20 22:26] LABS: Bedside Glucose 204 mg/dL (70-110)
[2021-02-21 03:24] VITALS: BP 159/85; PULSE 76; RESP 16; TEMP 36.7; O2SAT 93
[2021-02-21] MEDS: Cefazolin 2 GM in 0.9% Normal Saline 100 ML IV ×3 (05:04→22:56)
[2021-02-21 05:45] LABS: Absolute Lymphocyte Count 2.26 X10^3/uL (0.83-4.51); Absolute Neutrophil Count 10.7 X10^3/uL (2.0-7.7); Basophil# 0.02 X10^3/uL; Basophil% 0.1 % (0-1); Eosinophil# 0.07 X10^3/uL; Eosinophils% 0.5 % (0-5); Hematocrit 27.6 % (40-54); Lymphocyte # 2.26 X10^3/ul (0.83-4.51); Lymphocyte % 16.4 % (19-41); Mean Corp Hgb Conc 32.6 g/dL (32-36); Mean Corpuscular Hgb 27.4 pg (27.0-32.0); Mean Corpuscular Volume 83.9 fL (80-94); Mean Platelet Vol. 8.9 fl (6.2-12.0); Monocyte# 0.71 X10^3/uL; Monocyte% 5.1 % (0-10); NRBC Flagged by Analyzer 0 % (0-5); Neutrophil # 10.67 X10^3/uL (2.7-7.7); Neutrophil % 77.3 % (47-70); Platelet Count 407 K/mm3 (150-450); RBC Distribution Width CV 13.4 % (11.6-14.6); RBC Distribution Width SD 41.5 fl (35.1-43.9); Red Blood Count 3.29 M/mm3 (4.6-6.2); White Blood Count 13.8 K/mm3 (4.4-11.0)
[2021-02-21 06:01] LABS: International Normalized Ratio 2.4; Prothrombin Time (Protime)PT. 25.5 SECONDS (11.7-14.9)
[2021-02-21 06:08] LABS: Anion Gap 6 (5-15); BUN 23 mg/dL (7-18); BUN/Creat Ratio 19.8 RATIO (10-20); Calcium,Total 8.3 mg/dL (8.5-10.1); Chloride 102 mmol/L (98-107); Creatinine, Serum 1.16 mg/dL (0.70-1.30); EST Glomerular Filtration Rate 65 mL/min (>60); Est Glom Filt Rate - Afr Amer 79 mL/min (>60); Estimated Creatinine Clearance 56.72 ml/min; Glucose 127 mg/dL (74-106); Potassium 2.9 mmol/L (3.5-5.1); Sodium Level 140 mmol/L (136-145)
[2021-02-21 09:25] VITALS: BP 157/72; PULSE 80; RESP 18; TEMP 36.9; O2SAT 93
[2021-02-21] MEDS: Menthol/Lanolin/Calamine/Znox 113 GM Tube 1 APPLIC TOPICAL ×2 (09:35→22:56)
[2021-02-21] MEDS: Aspirin 81 MG TAB.CHEW PO (09:35)
[2021-02-21] MEDS: Juven (unflavored) Packet 1 PACKET PO ×2 (09:35→16:18)
[2021-02-21] MEDS: Potassium Chloride Oral Tablet 20 MEQ 40 MEQ PO ×2 (09:35→16:18)
[2021-02-21 09:36] VITALS: PULSE 80
[2021-02-21] MEDS: Famotidine 20 MG Tablet PO ×2 (09:36→22:57)
[2021-02-21] MEDS: Metoprolol(XL)Succ 25 MG Tablet PO (09:36)
[2021-02-21] MEDS: Insulin Lispro 100 UNIT/ML INSULN.PEN 8 UNIT SC ×2 (09:37→11:48)
[2021-02-21 09:54] VITALS: PULSE 80; RESP 18; O2SAT 93
[2021-02-21 11:11] LABS: Bedside Glucose 239 mg/dL (70-110)
[2021-02-21] MEDS: Insulin Lispro 100 UNIT/ML INSULN.PEN SC ×3 (11:48→22:57)
--- NOTE | 2021-02-21 12:01 | NURSING ---
am meds and insulin checked w/charge nurse sharath d/t scanner not working-i.s. aware
--- NOTE | 2021-02-21 13:53 | PCM.PN.ID ---
Physical Exam Narrative Feeling ok, no new pain. Lower back pain for 4 months. No fever. Const alert General Appearance: cooperative Resp normal air movement and clear to auscultation bilaterally Cardio regular rate and regular rhythm GI normal to inspection, nondistended, normoactive bowel sounds Extremity Extremity Narrative: No spine tenderness on palpation Skin no rashes or lesions noted Skin Narrative: foot wrapped ID ID: Route of nutrition/ use of supplements: [] Nutritional Intake: [] IV Site: [] Toscano Catheter: [] Assessment & Plan Assessment/Plan (1) Bacteremia: PLAN: Foot infection at [place] requiring 6 weeks iv abx early this year. Reviewed photo R foot ulcer. Now bcx x2 (+) MSSA. Repeat bcx today. TTE no veg. MRI R foot with small area of chronic osteo. Podiatry, no plan for surgery at this point. LOTTIE showed no veg. Cont cefazolin. Will check bone scan. Has poor dentition, but mssa not typical oral jose c; will get mandible xray. Will follow
--- NOTE | 2021-02-21 14:47 | PN.HOSP_ITS ---
Subjective Subjective No significant issues overnight. Patient still with intermittent confusion and hallucinations. Objective Data Objective Data Vital Signs: Vital Signs Temp Pulse Resp BP Pulse Ox 98.4 F 80 18 157/72 H 93 02/21/21 09:25 02/21/21 09:54 02/21/21 09:54 02/21/21 09:25 02/21/21 09:54 Oxygen Flow Rate (L/min) 2 Oxygen Delivery Method Room Air Weight: 77.6 kg Body Mass Index (BMI) 24.0 Intake & Output: Intake and Output for Last 24 Hours 02/19/21 02/20/21 02/21/21 23:59 23:59 23:59 Intake Total 423.75 / 423.75 320.00 / 320.00 350 / 350 Output Total 1900 / 1900 600 / 600 650 / 650 Balance -1476.25 / -1476.25 -280.00 / -280.00 -300 / -300 Lab / Micro Data Result Diagrams: 02/21/21 05:36 02/21/21 05:36 Labs: Laboratory Results - last 24 hr 02/20/21 17:03: POC Glucose 136 H 02/20/21 21:46: POC Glucose 204 H 02/21/21 05:36: PT 25.5 H, INR 2.4 02/21/21 05:36: WBC 13.8 H, RBC 3.29 L, Hgb 9.0 L, Hct 27.6 L, MCV 83.9, MCH 27.4, MCHC 32.6, RDW Std Deviation 41.5, RDW Coeff of Fernando 13.4, Plt Count 407, MPV 8.9, Immature Gran % (Auto) 0.600, Neut % (Auto) 77.3 H, Lymph % (Auto) 16.4 L, [place] % (Auto) 5.1, Eos % (Auto) 0.5, Baso % (Auto) 0.1, Absolute Neuts (auto) 10.7 H, Absolute Lymphs (auto) 2.26, Nucleated RBC % 0 02/21/21 05:36: Sodium 140, Potassium 2.9 L, Chloride 102, Carbon Dioxide 32.0, Anion Gap 6, BUN 23 H, Creatinine 1.16, Estim Creat Clear Calc 56.72, Est GFR (MDRD) Af Amer 79, Est GFR (MDRD) Non-Af 65, BUN/Creatinine Ratio 19.8, Glucose 127 H, Calcium 8.3 L 02/21/21 11:04: POC Glucose 239 H Micro: Microbiology 02/19/21 13:30 Blood Culture (Wb) - Left Wrist Bacteria Detection (PCR) - Final Staphylococcus aureus 02/19/21 13:30 Blood Culture (Wb) - Left Wrist Blood Culture - Preliminary 02/18/21 14:44 Blood Culture (Wb) - Anticubital Left Blood Culture - Preliminary Staphylococcus aureus 02/16/21 14:24 Blood Culture (Wb) - Anticubital Left Blood Culture - Final Staphylococcus aureus 02/17/21 10:20 Blood Culture (Wb) - Anticubital Left Blood Culture - Final Staphylococcus aureus 02/15/21 14:05 Wound - Right Foot Gram Stain - Final 02/15/21 14:05 Wound - Right Foot Wound Culture - Final Staphylococcus aureus 02/15/21 14:05 Wound - Right Foot Anaerobic Culture - Final No anaerobic bacteria isolated. 02/13/21 23:29 Blood Culture (Wb) - Right Hand Bacteria Detection (PCR) - Final Staphylococcus aureus 02/13/21 23:29 Blood Culture (Wb) - Right Hand Blood Culture - Final Staphylococcus aureus 02/14/21 00:40 Urine, Catheterized Urine Culture - Final Culture exhibits no growth. 02/13/21 23:29 Blood Culture (Wb) - Anticubital Left Blood Culture - Final Staphylococcus aureus 02/14/21 00:42 Nasal Secretion SARS-CoV-2 Antigen (Rapid) - Final Physical Exam Const alert, oriented x3, no apparent distress, average body habitus, healthy appear ing and well nourished Constitutional Narrative: Older white male lying in bed, awake, was oriented x3 this morning, nontoxic-appearing, mental status seems to ebb and flow General Appearance: cooperative, well kempt and well developed Orientation / Consciousness: awake, oriented to person, oriented to place and oriented to time Exam Limitations: altered mental status Nutritional Appearance: overweight HEENT normocephalic, head/scalp atraumatic and moist oral mucous membranes Head and Scalp: normocephalic Neck nuchal rigidity and thyroid normal General: trachea midline Resp normal respiratory effort, no retractions, no use of accessory muscles and clear to auscultation bilaterally Auscultation: Negative for crackles, rales, rhonchi or wheezes Cardio regular rate, regular rhythm, S1 normal heart sound, S2 normal heart sound, no murmurs, no rub, no gallops, no clicks and no JVD GI normal to inspection, nondistended, normoactive bowel sounds, soft to palpation, non-tender and non-distended; Negative for hepatosplenomegaly Extremity normal to inspection and no clubbing, cyanosis or edema Extremity Narrative: 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, pedal pulses on left foot are 1+ Skin no rashes or lesions noted, skin turgor normal, no jaundice, no petechiae and no mottling Skin Narrative: Right lower extremity foot with dressing in place-diabetic foot wound, no rashes General Skin Exam: no breakdown Neuro oriented x3, moves all extremities and no focal motor deficits Neuro Narrative: Oriented x3 today Sensorium / Orientation: awake and alert Speech: speech normal Psych thought process normal Psych Narrative: Affect is somewhat strange but eye contact is good and patient does not seem depressed or anxious Assessment & Plan Assessment/Plan (1) MSSA bacteremia: (2) Metabolic encephalopathy: (3) Debility: (4) Osteomyelitis: (5) Chronic ulcer of right foot with fat layer exposed: (6) Hypokalemia: PLAN: MSSA bacteremia -Source is unknown at this time--> mouth versus foot -Foot wound appears clean and dry without any significant drainage and does not appear infected -Has had multiple issues with his dentition and chronic infections but MSSA is usually not oral jose c -Initial blood cultures positive on 02/15/2021 with repeat cultures positive on 02/17/2021, 02/18/2021, 02/19/2021 -Repeat cultures from 02/20/2021 and today are pending -TTE negative for vegetations/LOTTIE done on 02/20/2021--> no valvular vegetations, EF 55%, mild aortic valve insufficiency -Antibiotics per infectious disease -Bone scan and mandibular x-ray pending as we are still searching for source of his bacteremia Metabolic encephalopathy -Slowly improving-seems to wax and wane -Has outpatient work-up pending for vascular dementia -Has had mental status issues since November but per daughter he has been worse with this episode -Suspect that he may have some underlying dementia with acute delirium related to his infection -MRI negative for any acute process on 02/12/2021 but does show chronic ischemic changes -We will continue to monitor Chronic right foot osteo -This is a potential source for his staph infection -Podiatry has evaluated and there are no plans for surgery at this point time -Bone scan pending Dysphagia -Patient had a modified barium swallow on 02/13/2021 -Recommended diet is mechanical soft with soft and bite-size portions and honey thick liquids -Continue speech therapy -Will need continued speech therapy upon discharge as well HFrEF -Patient is currently hemodynamically stable and compensated -Continue metoprolol -Continue to monitor with volume status -Continue aspirin -EF normalized on LOTTIE 55% Hypokalemia -Potassium 40 mEq twice daily x1 day -Repeat BMP in a.m. -Check magnesium level in a.m. Hyperlipidemia -Continue Lipitor DM-2 -Continue Lantus 30 units at at bedtime--> a.m. fasting blood sugar 127 -Increase lispro to 10 units 3 times daily -Continue sliding scale -Continue Accu-Cheks -Fasting blood sugars are good but prandial sugars are elevated GERD -Continue famotidine History of TIA/stroke -Continue PT/OT/speech therapy -MRI with no evidence of acute infarct History of atrial flutter -Continue metoprolol -Patient is fully anticoagulated with Coumadin -Coumadin was on hold secondary to supratherapeutic INR - INR down to 2.4 today -Continue Coumadin at 3 mg daily today -Continue to monitor daily INR BPH/urinary retention -Continue Flomax--> is already on 0.8 mg daily -Toscano had to be replaced secondary to urinary retention -Consider repeat voiding trial tomorrow DVT prophylaxis -Full anticoagulation CODE STATUS -Full code
--- NOTE | 2021-02-21 14:48 | RAD_ITS ---
STUDY: X-RAY - MANDIBLE (COMPLETE) REASON FOR EXAM: Male, 75 years old. Possible dental abscess TECHNIQUE: 6 view(s) of the mandible were obtained. COMPARISON: None. FINDINGS: Normal mandible. Normal visualized right temporomandibular joint. Normal visualized left temporomandibular joint. There is opacification of the right maxillary sinus suggestive of a right maxillary sinusitis. Mucosal thickening of the left maxillary sinus. The remaining visualized osseous structures are normal. The soft tissue structures are unremarkable. RAD/Mandible Min 4 Views IMPRESSION: Right maxillary sinusitis. Electronically Signed: Valente Beverly MD at 14:26 EDT , Service support ,
[2021-02-21 15:30] VITALS: BP 133/78; PULSE 87; RESP 18; TEMP 36.6; O2SAT 95
[2021-02-21] MEDS: Insulin Lispro 100 UNIT/ML INSULN.PEN 10 UNIT SC (16:16)
[2021-02-21] MEDS: Tamsulosin HCl 0.4 MG Capsule 0.8 MG PO (16:18)
[2021-02-21 16:25] LABS: Bedside Glucose 285 mg/dL (70-110)
[2021-02-21 20:26] VITALS: BP 153/77; PULSE 83; RESP 18; TEMP 36.9; O2SAT 95
[2021-02-21] MEDS: Atorvastatin Calcium 40 MG Tablet PO (22:57)
[2021-02-21 23:06] LABS: Bedside Glucose 309 mg/dL (70-110)
[2021-02-21] MEDS: Acetaminophen 325 MG Tablet 650 MG PO (23:06)
[2021-02-22] VITALS (7 sets, daily range): BP systolic 135–165; BP diastolic 65–78; PULSE 75–86; RESP 16–18; TEMP 36.4–37.1; O2SAT 92–98
[2021-02-22] MEDS: Cefazolin 2 GM in 0.9% Normal Saline 100 ML IV ×3 (05:10→22:45)
[2021-02-22 07:17] LABS: Absolute Lymphocyte Count 1.98 X10^3/uL (0.83-4.51); Basophil# 0.02 X10^3/uL; Basophil% 0.2 % (0-1); Eosinophils% 0.9 % (0-5); Hematocrit 27.2 % (40-54); Hemoglobin 8.9 g/dL (13.0-16.5); Lymphocyte # 1.98 X10^3/ul (0.83-4.51); Lymphocyte % 18.5 % (19-41); Mean Corp Hgb Conc 32.7 g/dL (32-36); Mean Corpuscular Hgb 27.6 pg (27.0-32.0); Mean Corpuscular Volume 84.5 fL (80-94); Mean Platelet Vol. 8.6 fl (6.2-12.0); Monocyte% 5.6 % (0-10); NRBC Flagged by Analyzer 0 % (0-5); Neutrophil # 7.99 X10^3/uL (2.7-7.7); Neutrophil % 74.4 % (47-70); Platelet Count 391 K/mm3 (150-450); RBC Distribution Width CV 13.4 % (11.6-14.6); RBC Distribution Width SD 41.7 fl (35.1-43.9); Red Blood Count 3.22 M/mm3 (4.6-6.2); White Blood Count 10.7 K/mm3 (4.4-11.0)
[2021-02-22 07:30] LABS: International Normalized Ratio 2.4; Prothrombin Time (Protime)PT. 25.1 SECONDS (11.7-14.9)
[2021-02-22 07:41] LABS: Anion Gap 5 (5-15); BUN 23 mg/dL (7-18); BUN/Creat Ratio 18.4 RATIO (10-20); Calcium,Total 8.5 mg/dL (8.5-10.1); Chloride 107 mmol/L (98-107); Creatinine, Serum 1.25 mg/dL (0.70-1.30); EST Glomerular Filtration Rate 60 mL/min (>60); Est Glom Filt Rate - Afr Amer 73 mL/min (>60); Estimated Creatinine Clearance 52.63 ml/min; Glucose 96 mg/dL (74-106); Magnesium 2.2 mg/dL (1.6-2.6); Potassium 3.2 mmol/L (3.5-5.1); Sodium Level 143 mmol/L (136-145)
[2021-02-22] MEDS: Potassium Chloride Oral Tablet 20 MEQ 40 MEQ PO (08:20)
[2021-02-22] MEDS: Metoprolol(XL)Succ 25 MG Tablet PO (08:21)
[2021-02-22] MEDS: Famotidine 20 MG Tablet PO ×2 (08:21→22:41)
[2021-02-22] MEDS: Insulin Lispro 100 UNIT/ML INSULN.PEN 10 UNIT SC ×3 (08:22→16:06)
[2021-02-22] MEDS: Aspirin 81 MG TAB.CHEW PO (08:22)
[2021-02-22] MEDS: Juven (unflavored) Packet 1 PACKET PO ×2 (08:37→18:03)
[2021-02-22] MEDS: Menthol/Lanolin/Calamine/Znox 113 GM Tube 1 APPLIC TOPICAL ×2 (09:40→22:38)
[2021-02-22] MEDS: Potassium Chloride Oral Tablet 20 MEQ 60 MEQ PO (09:40)
--- NOTE | 2021-02-22 09:45 | NM_ITS ---
CLINICAL: 75-year-old male with suspected right forefoot osteomyelitis. WHOLE BODY 99m Tc MDP RADIONUCLIDE BONE SCINTIGRAPHY COMPARISON: MRI of the right foot report 02/15/2021 FINDINGS: Following the intravenous administration of 26.7 mCi of 99m Tc MDP, whole body bone images reveal: 1. Increased radiopharmaceutical concentration is defined in the left posterior lateral 10th, left posterior eighth ribs. 2. Enhanced tracer uptake is defined in the eighth-ninth, 12th thoracic, fourth-fifth lumbar vertebra diffusely. 3. An increase in radiotracer distribution is visualized in the acromioclavicular and sternoclavicular compartments of both shoulders, the left ankle, visualized elbows, mid cervical spine posteriorly on the left and right, medial femoral compartment of the right knee. 4. Subtle facilitated uptake is observed in the region of the first metatarsal at the level of the amputation stump. 5. The remaining skeletal structures are scintigraphically unremarkable with normal-appearing renal images and urinary bladder activity identified. An increase in uptake is observed in the region of the left supraorbital ridge most consistent with visualization of the frontal zygomatic suture and the plantar aspect of the left calcaneus most consistent with periostitis. NM/Bone Scan Whole Body IMPRESSION: 1. The increase in tracer uptake observed in the region of the first metatarsal at the level of the amputation stump may represent low-grade active infection of bone-osteomyelitis. Correlation with labeled leukocyte or gallium imaging may be of benefit for further evaluation. 2. Increased radiotracer distribution observed in the left posterior ribs is most consistent with trauma-fracture. 3. 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 4. The thoracic and lumbar vertebral increase in tracer uptake likely represents degenerative arthritis, potential trauma-compression fracture. Plain film radiography correlation may be of benefit. Electronically Signed: Reuben Martin DO at 15:00 EDT Tel , Service support ,
--- NOTE | 2021-02-22 10:37 | CASEMGMT ---
Addendum entered by Nimo Nieves 02/22/21 16:55: Precert has been waived by pt's insurance, he can admit when ready as per Roseline Page w/[facility]. SW explained pt not ready yet, may be ready tomorrow. SW will continue to follow. [facility] Fink Addendum entered by Nimo Nieves 02/22/21 13:33: Updates faxed to [email or web address]. [facility]DY Fink Original Note: As per physician, pt may be ready in the next couple of days for discharge. SW called [facility], spoke w/Roseline Page, she did start precert however needs updates. Currently the fax machine is down, SW will fax over updates when able. JOSE LUIS called [facility] back, let Roseline Page know that the fax machines are down and will fax updates as soon as able. INDY Fink
[2021-02-22 10:58] LABS: Bedside Glucose 163 mg/dL (70-110)
[2021-02-22] MEDS: 0.9% Saline Lock 10 ML Syringe IV (11:57)
[2021-02-22] MEDS: Acetaminophen 325 MG Tablet 650 MG PO (14:32)
[2021-02-22 15:46] LABS: Bedside Glucose 132 mg/dL (70-110)
[2021-02-22] MEDS: Insulin Lispro 100 UNIT/ML INSULN.PEN SC ×2 (16:07→22:39)
--- NOTE | 2021-02-22 16:51 | NURSING ---
lucio warning- emergency protocol in place
--- NOTE | 2021-02-22 16:59 | PCM.PN.HOSP ---
Subjective Subjective Patient has no subjective complaints. No overnight issues. Repeat blood cultures are finally negative. Awaiting finalized plan from Dr. Grove in preparation for discharge. Objective Data Objective Data Vital Signs: Vital Signs Temp Pulse Resp BP Pulse Ox 98.4 F 86 18 160/76 H 95 02/22/21 14:26 02/22/21 14:26 02/22/21 14:26 02/22/21 14:26 02/22/21 14:26 Oxygen Flow Rate (L/min) 2 Oxygen Delivery Method Room Air Weight: 79.5 kg Body Mass Index (BMI) 24.0 Intake & Output: Intake and Output for Last 24 Hours 02/20/21 02/21/21 02/22/21 23:59 23:59 23:59 Intake Total 320.00 / 320.00 460 / 460 900 / 900 Output Total 600 / 600 650 / 650 1150 / 1150 Balance -280.00 / -280.00 -190 / -190 -250 / -250 Lab / Micro Data Result Diagrams: 02/22/21 07:00 02/22/21 07:00 Labs: Laboratory Results - last 24 hr 02/21/21 22:53: POC Glucose 309 H 02/22/21 07:00: PT 25.1 H, INR 2.4 02/22/21 07:00: WBC 10.7, RBC 3.22 L, Hgb 8.9 L, Hct 27.2 L, MCV 84.5, MCH 27.6, MCHC 32.7, RDW Std Deviation 41.7, RDW Coeff of Fernando 13.4, Plt Count 391, MPV 8.6, Immature Gran % (Auto) 0.400, Neut % (Auto) 74.4 H, Lymph % (Auto) 18.5 L, [place] % (Auto) 5.6, Eos % (Auto) 0.9, Baso % (Auto) 0.2, Absolute Neuts (auto) 8.0 H, Absolute Lymphs (auto) 1.98, Nucleated RBC % 0 02/22/21 07:00: Sodium 143, Potassium 3.2 L, Chloride 107, Carbon Dioxide 31.0, Anion Gap 5, BUN 23 H, Creatinine 1.25, Estim Creat Clear Calc 52.63, Est GFR (MDRD) Af Amer 73, Est GFR (MDRD) Non-Af 60, BUN/Creatinine Ratio 18.4, Glucose 96, Calcium 8.5, Magnesium 2.2 02/22/21 08:36: POC Glucose 163 H 02/22/21 11:24: POC Glucose 132 H Micro: Microbiology 02/20/21 10:10 Blood Culture (Wb) - Left Hand Blood Culture - Preliminary No growth in 48 hours. 02/19/21 13:30 Blood Culture (Wb) - Left Wrist Bacteria Detection (PCR) - Final Staphylococcus aureus 02/19/21 13:30 Blood Culture (Wb) - Left Wrist Blood Culture - Preliminary 02/18/21 14:44 Blood Culture (Wb) - Anticubital Left Blood Culture - Preliminary Staphylococcus aureus 02/16/21 14:24 Blood Culture (Wb) - Anticubital Left Blood Culture - Final Staphylococcus aureus 02/17/21 10:20 Blood Culture (Wb) - Anticubital Left Blood Culture - Final Staphylococcus aureus 02/15/21 14:05 Wound - Right Foot Gram Stain - Final 02/15/21 14:05 Wound - Right Foot Wound Culture - Final Staphylococcus aureus 02/15/21 14:05 Wound - Right Foot Anaerobic Culture - Final No anaerobic bacteria isolated. 02/13/21 23:29 Blood Culture (Wb) - Right Hand Bacteria Detection (PCR) - Final Staphylococcus aureus 02/13/21 23:29 Blood Culture (Wb) - Right Hand Blood Culture - Final Staphylococcus aureus 02/14/21 00:40 Urine, Catheterized Urine Culture - Final Culture exhibits no growth. 02/13/21 23:29 Blood Culture (Wb) - Anticubital Left Blood Culture - Final Staphylococcus aureus 02/14/21 00:42 Nasal Secretion SARS-CoV-2 Antigen (Rapid) - Final Radiography Diagnostic Testing: Radiology Impression Mandible X-Ray 02/21/21 14:48 IMPRESSION: Right maxillary sinusitis. Electronically Signed: Valente Beverly MD at 14:26 EDT , Service support , Bone Scan Nuclear Medicine 02/22/21 09:45 IMPRESSION: 1. The increase in tracer uptake observed in the region of the first metatarsal at the level of the amputation stump may represent low-grade active infection of bone-osteomyelitis. Correlation with labeled leukocyte or gallium imaging may be of benefit for further evaluation. 2. Increased radiotracer distribution observed in the left posterior ribs is most consistent with trauma-fracture. 3. 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 4. The thoracic and lumbar vertebral increase in tracer uptake likely represents degenerative arthritis, potential trauma-compression fracture. Plain film radiography correlation may be of benefit. Electronically Signed: Reuben Mario, DO at 15:00 EDT Tel , Service support , Physical Exam Const alert, oriented x3, no apparent distress, average body habitus, healthy appearing and well nourished Constitutional Narrative: Older white male lying in bed, awake, was oriented x3 this morning, nontoxic-appearing, mental status seems to ebb and flow although seems much improved since Friday General Appearance: cooperative, well kempt and well developed Orientation / Consciousness: awake, oriented to person, oriented to place and oriented to time Exam Limitations: altered mental status Nutritional Appearance: overweight HEENT normocephalic, head/scalp atraumatic and moist oral mucous membranes Head and Scalp: normocephalic Neck nuchal rigidity and thyroid normal General: trachea midline Resp normal respiratory effort, no retractions, no use of accessory muscles and clear to auscultation bilaterally Auscultation: Negative for crackles, rales, rhonchi or wheezes Cardio regular rate, regular rhythm, S1 normal heart sound, S2 normal heart sound, no murmurs, no rub, no gallops, no clicks and no JVD GI normal to inspection, nondistended, normoactive bowel sounds, soft to palpation, non-tender and non-distended; Negative for hepatosplenomegaly Extremity normal to inspection and no clubbing, cyanosis or edema Extremity Narrative: 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, pedal pulses on left foot are 1+ Skin no rashes or lesions noted, skin turgor normal, no jaundice, no petechiae and no mottling Skin Narrative: Right lower extremity foot with dressing in place-diabetic foot wound, no rashes General Skin Exam: no breakdown Neuro oriented x3, moves all extremities and no focal motor deficits Neuro Narrative: Oriented x3 today and mentation seems to be clearing Sensorium / Orientation: awake and alert Speech: speech normal Psych thought process normal Assessment & Plan Assessment/Plan (1) MSSA bacteremia: (2) Metabolic encephalopathy: (3) Debility: (4) Osteomyelitis: (5) Chronic ulcer of right foot with fat layer exposed: (6) Hypokalemia: PLAN: MSSA bacteremia -Source is unknown at this time--> mouth versus foot -Foot wound appears clean and dry without any significant drainage and does not appear infected -Has had multiple issues with his dentition and chronic infections but MSSA is usually not oral jose c -Initial blood cultures positive on 02/15/2021 with repeat cultures positive on 02/17/2021, 02/18/2021, 02/19/2021 -Repeat cultures from 02/20/2021 are negative and repeat cultures from 1019 and 102 are pending -TTE negative for vegetations/LOTTIE done on 02/20/2021--> no valvular vegetations, EF 55%, mild aortic valve insufficiency -Antibiotics per infectious disease -His bone scan showed increased tracer uptake in the region of the first metatarsal at the level of his amputation stump and was felt to possibly represent a low-grade active osteomyelitis and all other increased radiotracer uptake findings were associated with degenerative arthritis or previous fracture. -His mandibular x-ray showed right maxillary sinusitis -I did discuss the case with ID and they felt that at least 1 more day of IV antibiotics here prior to discharge and if things are stable he can possibly discharge tomorrow with a PICC and continued IV antibiotics depending on culture results -Leukocytosis is finally normalized Metabolic encephalopathy -Seems much improved -Patient was completely alert and oriented today -No noted hallucinations -Has outpatient work-up pending for vascular dementia -Has had mental status issues since November but per daughter he has been worse with this episode -Suspect that he may have some underlying dementia with acute delirium related to his infection -MRI negative for any acute process on 02/12/2021 but does show chronic ischemic changes -We will continue to monitor Chronic right foot osteo -This is a potential source for his staph infection -Podiatry has evaluated and there are no plans for surgery at this point time -Bone scan consistent with possible osteo- Dysphagia -Patient had a modified barium swallow on 02/13/2021 -Recommended diet is mechanical soft with soft and bite-size portions and honey thick liquids -Continue speech therapy -Will need continued speech therapy upon discharge as well HFrEF -Patient is currently hemodynamically stable and compensated -Continue metoprolol -Continue to monitor with volume status -Continue aspirin -EF normalized on LOTTIE 55% Hypokalemia -Repeat potassium but will give 60mEq twice daily x1 day -Repeat BMP in a.m. -Mag levels normal Hyperlipidemia -Continue Lipitor DM-2 -Continue Lantus 30 units at at bedtime--> a.m. fasting blood sugar 96 -Continue lispro to 10 units 3 times daily -Continue sliding scale -Continue Accu-Cheks -Fasting blood sugars are good but prandial sugars are elevated GERD -Continue famotidine History of TIA/stroke -Continue PT/OT/speech therapy -MRI with no evidence of acute infarct History of atrial flutter -Continue metoprolol -Patient is fully anticoagulated with Coumadin -Coumadin was on hold secondary to supratherapeutic INR - INR down to 2.4 again today -Continue Coumadin at 3 mg daily today -Continue to monitor daily INR BPH/urinary retention -Continue Flomax--> is already on 0.8 mg daily -Toscano had to be replaced secondary to urinary retention -We will try to discontinue Toscano DVT prophylaxis -Full anticoagulation CODE STATUS -Full code
[2021-02-22 17:05] LABS: Bedside Glucose 216 mg/dL (70-110)
[2021-02-22] MEDS: Tamsulosin HCl 0.4 MG Capsule 0.8 MG PO (18:03)
[2021-02-22] MEDS: Atorvastatin Calcium 40 MG Tablet PO (22:41)
[2021-02-23 00:30] LABS: Bedside Glucose 321 mg/dL (70-110)
[2021-02-23 06:00] VITALS: BP 164/74; PULSE 81; RESP 18; TEMP 35.8; O2SAT 94
[2021-02-23 06:07] LABS: Absolute Lymphocyte Count 2.05 X10^3/uL (0.83-4.51); Absolute Neutrophil Count 9.8 X10^3/uL (2.0-7.7); Basophil# 0.03 X10^3/uL; Basophil% 0.2 % (0-1); Eosinophil# 0.12 X10^3/uL; Eosinophils% 0.9 % (0-5); Hematocrit 27.6 % (40-54); Hemoglobin 8.8 g/dL (13.0-16.5); Lymphocyte # 2.05 X10^3/ul (0.83-4.51); Lymphocyte % 16.2 % (19-41); Mean Corp Hgb Conc 31.9 g/dL (32-36); Mean Corpuscular Hgb 27.2 pg (27.0-32.0); Mean Corpuscular Volume 85.4 fL (80-94); Mean Platelet Vol. 8.7 fl (6.2-12.0); Monocyte# 0.65 X10^3/uL; Monocyte% 5.1 % (0-10); NRBC Flagged by Analyzer 0 % (0-5); Neutrophil # 9.76 X10^3/uL (2.7-7.7); Neutrophil % 77.2 % (47-70); Platelet Count 412 K/mm3 (150-450); RBC Distribution Width CV 13.3 % (11.6-14.6); RBC Distribution Width SD 41.7 fl (35.1-43.9); Red Blood Count 3.23 M/mm3 (4.6-6.2); White Blood Count 12.7 K/mm3 (4.4-11.0)
[2021-02-23 06:16] LABS: International Normalized Ratio 2.4; Prothrombin Time (Protime)PT. 25.4 SECONDS (11.7-14.9)
[2021-02-23 06:32] LABS: Anion Gap 4 (5-15); BUN 28 mg/dL (7-18); BUN/Creat Ratio 23.9 RATIO (10-20); Chloride 106 mmol/L (98-107); Creatinine, Serum 1.17 mg/dL (0.70-1.30); EST Glomerular Filtration Rate 65 mL/min (>60); Est Glom Filt Rate - Afr Amer 78 mL/min (>60); Estimated Creatinine Clearance 56.23 ml/min; Glucose 198 mg/dL (74-106); Potassium 4.1 mmol/L (3.5-5.1); Sodium Level 139 mmol/L (136-145)
[2021-02-23] MEDS: Cefazolin 2 GM in 0.9% Normal Saline 100 ML IV ×2 (06:34→15:37)
[2021-02-23] MEDS: 0.9% Saline Lock 10 ML Syringe IV (06:34)
[2021-02-23 06:55] LABS: Bedside Glucose 194 mg/dL (70-110)
--- NOTE | 2021-02-23 08:28 | NURSING ---
phone number to access rn phoned- states will send information onto RN
[2021-02-23 08:46] VITALS: BP 155/75; PULSE 80; RESP 16; TEMP 37.1; O2SAT 96
--- NOTE | 2021-02-23 09:54 | CASEMGMT ---
Addendum entered by Nimo Nieves 02/23/21 11:06: SW spoke w/Roseline Page again at [facility], they are fine with the IV antibiotics for pt as outlined below. SW texted physician to let her know. It is anticipated pt will go to [facility] later today after the PICC line is placed. INDY Fink Original Note: JOSE LUIS spoke w/physician, PICC line ordered, pt to go on cefazolin, Q8, 2gm, for four weeks. JOSE LUIS called [facility], spoke w/Roseline Page in admissions. SW let her know the above information in regard to IV antibiotics. She will speak w/her director of knowledge management to make sure this will work and will let SW know. INDY Fink
[2021-02-23] MEDS: Insulin Lispro 100 UNIT/ML INSULN.PEN SC ×2 (10:01→11:44)
[2021-02-23] MEDS: Insulin Lispro 100 UNIT/ML INSULN.PEN 10 UNIT SC ×2 (10:02→11:36)
[2021-02-23] MEDS: Aspirin 81 MG TAB.CHEW PO (10:02)
[2021-02-23 10:03] VITALS: PULSE 80
[2021-02-23] MEDS: Menthol/Lanolin/Calamine/Znox 113 GM Tube 1 APPLIC TOPICAL (10:03)
[2021-02-23] MEDS: Famotidine 20 MG Tablet PO (10:03)
[2021-02-23] MEDS: Metoprolol(XL)Succ 25 MG Tablet PO (10:03)
--- NOTE | 2021-02-23 10:55 | DS.PCM_ITS ---
Providers Date of Admission: 02/13/21 Primary Care Physician: [facility] Consultations 02/12/21 12:52 Consult: Onc/Wound/business objects report developer Routine Comment: 02/14/21 12:41 Consult: Infectious Disease Routine Consulting Provider: Basil Grove Reason for Consult: POSITIVE BLOOD CULTURES EMERGENT Consult: No Notified: Yes Date Notified: 02/14/21 Time Notified: 12:42 Method of Notification: Answering Service 02/15/21 14:06 Consult: Podiatry Routine Consulting Provider: Maryana Handy Reason for Consult: osteomylitis EMERGENT Consult: No MD Notified: Yes Date Notified: 02/15/21 Time Notified: 14:08 Method of Notification: Verbal Reason For Visit: FALL, TIA? Diagnosis Discharge Diagnosis (1) MSSA bacteremia: Status: Acute Code(s): R78.81 - Bacteremia; B95.61 - Methicillin susceptible Staphylococcus aureus infection as the cause of diseases classified elsewhere (2) Metabolic encephalopathy: Status: Acute Code(s): G93.41 - Metabolic encephalopathy (3) Debility: Status: Acute Code(s): R53.81 - Other malaise (4) Osteomyelitis: Status: Acute Code(s): M86.9 - Osteomyelitis, unspecified (5) Chronic ulcer of right foot with fat layer exposed: Status: Chronic Code(s): L97.512 - Non-pressure chronic ulcer of other part of right foot with fat layer exposed (6) Hypokalemia: Status: Acute Code(s): E87.6 - Hypokalemia Medications at Discharge Home Medications aspirin 81 mg PO DAILY@0800 06/23/20 atorvastatin 40 mg PO QHS 06/23/20 cholecalciferol (vitamin D3) 2,000 unit PO DAILY 06/23/20 melatonin-pyridoxine HCl (B6) 3 mg PO QHS 06/23/20 insulin aspart (niacinamide) 8 unit SUBCUT TID 10/23/20 Lantus U-100 Insulin 26 unit SUBCUT QHS 11/16/20 acetaminophen [Tylenol Extra Strength] 1,000 mg PO Q6H PRN 11/16/20 gabapentin 300 mg PO BID 11/16/20 diclofenac sodium 1 ea TOPICAL BID 12/04/20 docusate sodium 100 mg PO BID 12/04/20 warfarin 5 mg PO DAILY 12/04/20 [id number] [Walker (with collagen)] 1 ea PO BIDCM #0 ea 02/23/21 cefazolin in 0.9% sod chloride 100 ml IV Q8 #100 ml 02/23/21 metoprolol succinate 25 mg PO DAILY #0 tab 02/23/21 tamsulosin 0.8 mg PO DAILY@1730 #0 cap 02/23/21 Hospital Course Procedures 2-D Echocardiogram, PICC line placement, Transesophageal Echo and - (Bone scan) Summary of Care Provided Minutes Spent on Discharge: 45 Hospital Course: Mr. Kate is a 75-year-old white male with a history of dementia who was brought to the emergency department at [facility] on 02/12/2021 by his daughter with whom he lives for decreased responsiveness, fall, and generalized weakness. On admission she stated that michela sin left for a short time and upon her return she found him on the floor. He tried to stand up at that time but was not able to and slid down to his buttocks. The patient's had multiple TIAs since October 2020 and [facility] 1 [facility] 2 weeks for possible full vascular related dementia. At baseline he was noted to have weakness in bilateral lower extremities and was using a wheeled walker. In the emergency department he was hypertensive but in sinus rhythm his blood sugars were uncontrolled and his initial work-up in the emergency department did not show any acute stroke. His lactic acid was elevated but he has chronic elevation and had been on Metformin in the past. He had been taken off Metformin for that. On admission he appeared dehydrated and weak and had an elevated BUN and creatinine. Given his elevated lactate blood cultures were performed and he was placed on empiric Zosyn. Blood cultures resulted positive for gram-positive cocci in 2 of 2 cul tures and infectious disease was consulted on 02/14/2021. Vancomycin was added at that time. Of note he had [facility] that required 6 weeks of antibiotics via IV. With his confusion an MRI of his brain was performed on 02/12/2021 and showed no acute abnormalities with no acute infarct and moderate white matter chronic ischemic changes. There was concerned about his ability to take p.o. and a modified barium swallow was performed. This demonstrated moderate to severe oral pharyngeal dysphagia and a mechanical soft diet with soft and bite-size solids and honey thick liquids was recommended. The patient will need continued speech therapy after discharge. This may be a manifestation of his dementia. With his foot wound he was seen by podiatry and no surgical intervention was recommended as the wound appeared clean and MRI was obtained to rule out significant osteomyelitis and this showed mild bone edema at the amputated base of the first metatarsal suggestive of OM and fat replacement of the intrinsic muscles consistent with peripheral neuropathy. Vascular studies were obtained and showed relatively normal flow bilateral lower extremities. His bacteremia was identified as MSSA and echocardiogram was obtained which showed no evidence of vegetation. His initial blood cultures were obtained on 02/15/2021 and as noted were positive for MSSA repeat cultures were obtained daily on the ,, and all which remained positive for MSSA. Given his persistent bacteremia a LOTTIE was performed to better evaluate the valves for vegetation and this was negative for any valvular vegetations as well. Given his persistent positive cultures without an obvious source a bone scan was performed and this again showed possible low-grade osteo as noted in the MRI. A mandibular x-ray was performed as there was concern of poor dentition being a source although this would a be atypical given the organism being staph aureus. This too was found to be negative for any signs of abscess although did show a sinusitis. He was maintained on IV antibiotics throughout his stay and when MSSA was identified he was narrowed to Ancef. He had repeat blood cultures performed on the and these were negative with no growth at 48 hours on 02/23/2021. Per discussion with ID they felt comfortable with discharging him. A PICC line was placed on 02/23/2021 and he is to continue IV antibiotics for 4 more weeks at the direction of infectious disease and follow-up with Dr. Grove in 2 weeks as an outpatient. He is to follow- up with Dr. Biswas as well and as an outpatient for neurology is already set up at the [facility]. I do anticipate that his acute memory issues on top of his chronic memory issues are most likely related to acute delirium related to his infection on top of chronic dementia although I do agree he needs further neurological work-up at this time. His mental status did seem to improve throughout his hospitalization. He was discharged in stable condition to [facility] for continued care. He is on chronic Coumadin and was therapeutic at discharge with an INR of 2.4 x 3 days on 3 mg of Coumadin. I do anticipate possible changes with this given antibiotic dosing. Discharge diagnoses: MSSA bacteremia Metabolic encephalopathy-improved Chronic right foot osteomyelitis Dysphagia Chronic normocytic anemia-suspect related to chronic disease CKD stage II Heart failure with reduced ejection fraction-systolic Hypokalemia-resolved Hyperlipidemia DM-2 uncontrolled-A1c 8.3 GERD History of stroke/TIA History of atrial flutter BPH Urinary retention Physical Exam Const alert, oriented x3, no apparent distress, average body habitus, healthy appearing and well nourished Constitutional Narrative: Older white male lying in bed, awake, sitting up in bed with nursing assoc at bedside helping him with his meal, she states he just woke up, patient is still kind of groggy but alert and eating breakfast General Appearance: cooperative, comfortable, well kempt and well developed Orientation / Consciousness: awake, oriented to person, oriented to place and oriented to time Exam Limitations: altered mental status Nutritional Appearance: overweight HEENT normocephalic, head/scalp atraumatic and moist oral mucous membranes Eyes PERRL, EOMs intact bilaterally and conjunctivae normal Neck nuchal rigidity, no lymphadenopathy, supple, no JVD and thyroid normal Neck Narrative: Trachea midline, no thyroid enlargement noted General: trachea midline Resp normal respiratory effort, no retractions, no use of accessory muscles and clear to auscultation bilaterally Auscultation: Negative for crackles, rales, rhonchi or wheezes Cardio regular rate, regular rhythm, S1 normal heart sound, S2 normal heart sound, no murmurs, no rub, no gallops, no clicks and no JVD GI normal to inspection, nondistended, normoactive bowel sounds, soft to palpation, non-tender and non-distended; Negative for hepatosplenomegaly Extremity normal to inspection and no clubbing, cyanosis or edema Extremity Narrative: 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, pedal pulses on left foot are 1+ Skin no rashes or lesions noted, skin turgor normal, no jaundice, no petechiae and no mottling Skin Narrative: Right lower extremity foot with dressing in place-diabetic foot wound and dressing is clean dry and intact with no drainage noted on the dressing, no rashes General Skin Exam: no breakdown Neuro CN's II-XII intact bilaterally, moves all extremities and no focal motor deficits Neuro Narrative: Patient busy eating and not interested in discussing orientatio n questions today although was oriented x3 yesterday Sensorium / Orientation: awake and alert Speech: speech normal Psych thought process normal Psych Narrative: Affect is somewhat strange but eye contact is good and patient does not seem depressed or anxious Weight / BMI Weight Weight: 77.3 kg Body Mass Index (BMI) 24.0 ABG / Lab / Microbiology Data Result Diagrams: 02/23/21 06:00 02/23/21 06:00 Laboratory: Laboratory Results - last 24 hr 02/22/21 08:36: POC Glucose 163 H 02/22/21 11:24: POC Glucose 132 H 02/22/21 16:05: POC Glucose 216 H 02/22/21 22:36: POC Glucose 321 H 02/23/21 06:00: PT 25.4 H, INR 2.4 02/23/21 06:00: WBC 12.7 H, RBC 3.23 L, Hgb 8.8 L, Hct 27.6 L, MCV 85.4, MCH 27.2, MCHC 31.9 L, RDW Std Deviation 41.7, RDW Coeff of Fernando 13.3, Plt Count 412, MPV 8.7, Immature Gran % (Auto) 0.400, Neut % (Auto) 77.2 H, Lymph % (Auto) 16.2 L, [place] % (Auto) 5.1, Eos % (Auto) 0.9, Baso % (Auto) 0.2, Absolute Neuts (auto) 9.8 H, Absolute Lymphs (auto) 2.05, Nucleated RBC % 0 02/23/21 06:00: Sodium 139, Potassium 4.1, Chloride 106, Carbon Dioxide 29.0, Anion Gap 4 L, BUN 28 H, Creatinine 1.17, Estim Creat Clear Calc 56.23, Est GFR (MDRD) Af Amer 78, Est GFR (MDRD) Non-Af 65, BUN/Creatinine Ratio 23.9 H, Glucose 198 H, Calcium 9.0 02/23/21 06:43: POC Glucose 194 H Microbiology: Microbiology 02/23/21 10:00 Nasal Secretion SARS-CoV-2 Antigen (Rapid) - Final 02/18/21 14:44 Blood Culture (Wb) - Anticubital Left Blood Culture - Final Staphylococcus aureus 02/19/21 13:30 Blood Culture (Wb) - Left Wrist Bacteria Detection (PCR) - Final Staphylococcus aureus 02/19/21 13:30 Blood Culture (Wb) - Left Wrist Blood Culture - Final Staphylococcus aureus 02/20/21 10:10 Blood Culture (Wb) - Left Hand Blood Culture - Preliminary No growth in 48 hours. 02/16/21 14:24 Blood Culture (Wb) - Anticubital Left Blood Culture - Final Staphylococcus aureus 02/17/21 10:20 Blood Culture (Wb) - Anticubital Left Blood Culture - Final Staphylococcus aureus 02/15/21 14:05 Wound - Right Foot Gram Stain - Final 02/15/21 14:05 Wound - Right Foot Wound Culture - Final Staphylococcus aureus 02/15/21 14:05 Wound - Right Foot Anaerobic Culture - Final No anaerobic bacteria isolated. 02/13/21 23:29 Blood Culture (Wb) - Right Hand Bacteria Detection (PCR) - Final Staphylococcus aureus 02/13/21 23:29 Blood Culture (Wb) - Right Hand Blood Culture - Final Staphylococcus aureus 02/14/21 00:40 Urine, Catheterized Urine Culture - Final Culture exhibits no growth. 02/13/21 23:29 Blood Culture (Wb) - Anticubital Left Blood Culture - Final Staphylococcus aureus 02/14/21 00:42 Nasal Secretion SARS-CoV-2 Antigen (Rapid) - Final Radiography Diagnostic Testing: Radiology Impression Mandible X-Ray 02/21/21 14:48 IMPRESSION: Right maxillary sinusitis. Electronically Signed: Valente Beverly MD at 14:26 EDT , Service support , Bone Scan Nuclear Medicine 02/22/21 09:45 IMPRESSION: 1. The increase in tracer uptake observed in the region of the first metatarsal at the level of the amputation stump may represent low-grade active infection of bone-osteomyelitis. Correlation with labeled leukocyte or gallium imaging may be of benefit for further evaluation. 2. Increased radiotracer distribution observed in the left posterior ribs is most consistent with trauma-fracture. 3. 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 4. The thoracic and lumbar vertebral increase in tracer uptake likely represents degenerative arthritis, potential trauma-compression fracture. Plain film radiography correlation may be of benefit. Electronically Signed: Reuben Martin DO at 15:00 EDT Tel , Service support , D/C Instructions Discharge Diet: Low fat / Low cholesterol and 1800 Calorie Control Diet Discharge Activity: Return to Normal Activity Weight Bearing Status: No weight bearing Keep extremity elevated above heart level: Right Leg Meaningful Use Info Meaningful Use Diagnoses (Choose all that apply): None applicable Discharge Plan Admission Admit Date/Time: 02/13/21 13:39 Primary Reason for Your Visit: MSSA Bacteremia Attending Provider: Gardenia Alonso Primary Care Provider: [facility],[place] Consulting Providers: Basil Grove ; Maryana Handy Discharge Orders/Prescriptions Prescriptions: New metoprolol succinate 25 mg Tablet Extended Release 24 Hr 25 mg PO DAILY Qty: 0 RF: 0 Walker (with collagen) 7-7-1.5 gram Powder In Packet 1 ea PO BIDCM Qty: 0 RF: 0 tamsulosin 0.4 mg Capsule 0.8 mg PO DAILY@1730 Qty: 0 RF: 0 cefazolin in 0.9% sod chloride 2 gram/100 mL solution 100 ml IV Q8 Qty: 100 RF: 0 Continued aspirin 81 MG tablet,chewable 81 mg PO DAILY@0800 RF: 0 melatonin-pyridoxine HCl (B6) 1 EACH tablet 3 mg PO QHS RF: 0 atorvastatin 40 MG tablet 40 mg PO QHS RF: 0 cholecalciferol (vitamin D3) 50 MCG capsule 2,000 unit PO DAILY RF: 0 insulin aspart (niacinamide) 100 unit/mL (3 mL) Insulin Pen 8 unit SUBCUT TID RF: 0 Lantus U-100 Insulin 100 unit/mL Solution 26 unit SUBCUT QHS RF: 0 acetaminophen [Tylenol Extra Strength] 500 mg Tablet 1,000 mg PO Q6H PRN (Reason: Pain) RF: 0 gabapentin 300 mg Capsule 300 mg PO BID RF: 0 warfarin 3 mg Tablet 5 mg PO DAILY RF: 0 docusate sodium 100 mg Capsule 100 mg PO BID RF: 0 diclofenac sodium 1 % Gel 1 ea TOPICAL BID RF: 0 Discontinued metoprolol succinate 100 mg Tablet Extended Release 24 Hr 50 mg PO DAILY RF: 0 enoxaparin [Lovenox] 80 mg/0.8 mL Syringe 100 mg SUBCUT Q12H RF: 0 Referrals / Follow Up: Maryana Handy DPM [STAFF PHYSICIAN] - See Referral Note (1 week after discharge in office) Basil Grove MD [STAFF PHYSICIAN] - [facility] Weeks [facility] [[facility] - Within 3 Months Disposition Disposition (needs filled in before D/C Order can be placed): Longterm Facility Charges/Coding Visit Charges Inpatient E&M: 35980 SNF Disch >30 Min
--- NOTE | 2021-02-23 11:04 | NURSING ---
spoke with access coordinator regarding ETA d/t pt discharge is pending PICC line placement. Dispatcher states he will let RN know and has requested ETA
[2021-02-23 11:16] LABS: Bedside Glucose 204 mg/dL (70-110)
--- NOTE | 2021-02-23 11:30 | TREXTCAR_ITS ---
Diet 02/20/21 13:05 Diet: Carbohydrate Controlled Food consistency:: Soft & Bite Sized Liquid Consistency:: Honey/Moderately Thick Type of Dietary Supplement:: Ensure Pudding Is pt able to select menu?: No Diet Comments: Alternate bites with sips, 1:1 supervision, only feed when alert;ES pud TID Routine Orders/Code Status Suppository Frequency: Daily PRN O2 Frequency: PRN Keep PO Greater than or Equal to (%): 92 Wound(s) Right Foot: Wound Type: nearly healed wound Dressing Change: Dry Sterile Dressing Therapies Weight Bearing: Non weight bearing Extremity Affected:: Right Lower Physical Therapy: Eval and Treat Occupational Therapy: Eval and Treat Speech Therapy: Eval and Treat Problem/Diagnosis (1) MSSA bacteremia: Status: Acute (2) Metabolic encephalopathy: Status: Acute (3) Debility: Status: Acute (4) Osteomyelitis: Status: Acute (5) Chronic ulcer of right foot with fat layer exposed: Status: Chronic (6) Hypokalemia: Status: Acute Allergies/Procedures Done in Hospital Allergies No Known Allergies Allergy (Verified 12/26/20 22:26) Procedures: 2-D Echocardiogram, PICC line placement, Transesophageal Echo and - (Bone scan, MRI foot, MRI brain) Type of Care/Length of Stay Estimated LOS: Convalescent Care Less Than 30 days Type of Care Needed: Skilled Rehab Potential: Good Prognosis: Good Additional Orders/Day of Discharge Day of Discharge: 02/23/21 Dietary and Speech Recommendations Dietitian Recommendations/Changes: Will liberalize diet to Carbohydrate- Controlled with consistency as per ECHOCARDIOGRAPHY RADIOLOGY TECHNOLOGIST--currently soft/bite-sized with honey/moderately thick liquids. Continue Walker BID for wound healing. Will add Ensure Pudding BID for tolerance. Speech Linguistic Eval Summary: Patient lethargic at this date. Limited participation in bedside swallow evaluation. Assess cog at later date. Discharge Plan Admission Admit Date/Time: 02/13/21 13:39 Primary Reason for Your Visit: MSSA Bacteremia Attending Provider: Gardenia Alonso Primary Care Provider: [facility],[place] Consulting Providers: Basil Grove ; Maryana Handy Discharge Orders/Prescriptions Prescriptions: New metoprolol succinate 25 mg Tablet Extended Release 24 Hr 25 mg PO DAILY Qty: 0 RF: 0 Walker (with collagen) 7-7-1.5 gram Powder In Packet 1 ea PO BIDCM Qty: 0 RF: 0 tamsulosin 0.4 mg Capsule 0.8 mg PO DAILY@1730 Qty: 0 RF: 0 cefazolin in 0.9% sod chloride 2 gram/100 mL solution 100 ml IV Q8 Qty: 100 RF: 0 Continued aspirin 81 MG tablet,chewable 81 mg PO DAILY@0800 RF: 0 melatonin-pyridoxine HCl (B6) 1 EACH tablet 3 mg PO QHS RF: 0 atorvastatin 40 MG tablet 40 mg PO QHS RF: 0 cholecalciferol (vitamin D3) 50 MCG capsule 2,000 unit PO DAILY RF: 0 insulin aspart (niacinamide) 100 unit/mL (3 mL) Insulin Pen 8 unit SUBCUT TID RF: 0 Lantus U-100 Insulin 100 unit/mL Solution 26 unit SUBCUT QHS RF: 0 acetaminophen [Tylenol Extra Strength] 500 mg Tablet 1,000 mg PO Q6H PRN (Reason: Pain) RF: 0 gabapentin 300 mg Capsule 300 mg PO BID RF: 0 warfarin 3 mg Tablet 5 mg PO DAILY RF: 0 docusate sodium 100 mg Capsule 100 mg PO BID RF: 0 diclofenac sodium 1 % Gel 1 ea TOPICAL BID RF: 0 Discontinued metoprolol succinate 100 mg Tablet Extended Release 24 Hr 50 mg PO DAILY RF: 0 enoxaparin [Lovenox] 80 mg/0.8 mL Syringe 100 mg SUBCUT Q12H RF: 0 Referrals / Follow Up: Maryana Handy DPM [STAFF PHYSICIAN] - See Referral Note (1 week after discharge in office) Basil Grove MD [STAFF PHYSICIAN] - [facility] Weeks [facility] [[facility] - Within 3 Months Disposition Disposition (needs filled in before D/C Order can be placed): [facility] Facility
--- NOTE | 2021-02-23 12:41 | CASEMGMT ---
Addendum entered by Nimo Nieves 02/23/21 15:56: JOSE LUIS faxed PICC line information over to [facility]. INDY Hall Original Note: SW spoke to daughter Ac in [facility], offered support as daughter is having a difficult time due to caring for pt, health issues of her own, balancing everything. Daughter spoke about pt's mental status, and that he is being mean to her. She states she wants to bring him home after his stay at [facility] but doesn't know how she will do it if pt continues to be mean to her. She states he is not normally like this. Daughter tearful, support and reassurance given. Pt is ready for discharge today. JOSE LUIS faxed over hospital exemption, med list and transfer to extended care, along w/negative COVID test to [facility]. JOSE LUIS set up a 4pm ambulance w/Physicians. Pt is to get a PICC line between 1:30-2:30, so can go after that. JOSE LUIS let Roseline Page at [facility] know time of pickup. Daughter has left, SW called Ac, let her know time up pickup. SW also let monorail charger operator know time of pickup. No further needs, pt to [facility] skilled today for a convalescent stay. INDY Fink
[2021-02-23 14:20] VITALS: BP 152/74; PULSE 77; RESP 16; TEMP 36.8; O2SAT 94
--- NOTE | 2021-02-23 15:15 | RAD_ITS ---
STUDY: X-RAY CHEST REASON FOR EXAM: Male, 75 years old. Picc line placement TECHNIQUE: Single AP portable view of the chest. COMPARISON: Comparison is made with prior examination dated 02/13/2021. FINDINGS: A right-sided PICC line catheter is seen with the tip in the proximal superior vena cava. There is evidence of atelectasis and/or infiltrate in the left lower lobe. There is no demonstrated pleural abnormality. Sternal cerclage wires and vascular clips are present from a prior sternotomy and coronary artery bypass graft procedure (CABG). Normal mediastinum and ibeth. Normal visualized pulmonary arteries. There is atherosclerotic calcification of the aortic arch with tortuosity. Normal visualized thoracic spine. Normal visualized ribs, clavicles, and shoulders. There is no demonstrated abnormality of the visualized soft tissue structures of the upper abdomen. RAD/CXR for Line Placement IMPRESSION: The tip of the right PICC line catheter is in the proximal to midportion of the superior vena cava. Atelectasis and/or infiltrate in the posterior medial segment of the left lower lobe. Electronically Signed: Valente Beverly MD at 15:29 EDT , Service support ,
--- NOTE | 2021-02-23 15:22 | PCM.PN.ID ---
Physical Exam Narrative Feeling ok, discharge planned. Const alert and no apparent distress Resp normal air movement and clear to auscultation bilaterally Cardio regular rate and regular rhythm GI normal to inspection, nondistended, normoactive bowel sounds Skin no rashes or lesions noted ID ID: Route of nutrition/ use of supplements: [] Nutritional Intake: [] IV Site: [] Toscano Catheter: [] Assessment & Plan Assessment/Plan (1) Bacteremia: PLAN: [facility] this year. Reviewed photo R foot ulcer. Now bcx x2 (+) MSSA. TTE no veg. MRI R foot with small area of chronic osteo. Podiatry, no plan for surgery at this point. LOTTIE showed no veg. Cont cefazolin for 6 weeks total course; admitted 02/13. Bcx cleared 02/20. Will follow. ID followup in 2 weeks.
--- NOTE | 2021-02-23 16:14 | NURSING ---
report given to [facility].
--- NOTE | 2021-02-23 16:17 | NURSING ---
3 phone call attempts to [facility] to give nurse to nurse report- no answer.
== END 2021-02-23 17:15 | disposition skilled nursing facility (03) | DRG 981 ==
LOC: ED 02-12 08:04 → MS2 02-12 11:57
PROVIDERS: Hospitalist; Internal Medicine; Podiatrist; Admitting Provider Internal Medicine; Emergency Provider Emergency Medicine; Visit Provider Internal Medicine
DX: E11.621 Type 2 diabetes mellitus with foot ulcer (principal); G93.41 Metabolic encephalopathy; R78.81 Bacteremia; M86.671 Other chronic osteomyelitis, right ankle and foot; I13.0 Hypertensive heart and chronic kidney disease with heart failure and stage 1 through stage 4 chronic kidney disease, or unspecified chronic kidney disease; I50.20 Unspecified systolic (congestive) heart failure; I48.92 Unspecified atrial flutter; F05 Delirium due to known physiological condition; R47.01 Aphasia; L97.512 Non-pressure chronic ulcer of other part of right foot with fat layer exposed; F03.90 Unspecified dementia, unspecified severity, without behavioral disturbance, psychotic disturbance, mood disturbance, and anxiety; B95.61 Methicillin susceptible Staphylococcus aureus infection as the cause of diseases classified elsewhere; E87.6 Hypokalemia; E11.22 Type 2 diabetes mellitus with diabetic chronic kidney disease; N18.2 Chronic kidney disease, stage 2 (mild); E11.42 Type 2 diabetes mellitus with diabetic polyneuropathy; E11.65 Type 2 diabetes mellitus with hyperglycemia; E11.51 Type 2 diabetes mellitus with diabetic peripheral angiopathy without gangrene; E11.69 Type 2 diabetes mellitus with other specified complication; D63.1 Anemia in chronic kidney disease; I25.10 Atherosclerotic heart disease of native coronary artery without angina pectoris; I48.0 Paroxysmal atrial fibrillation; E78.5 Hyperlipidemia, unspecified; K21.9 Gastro-esophageal reflux disease without esophagitis; N40.1 Benign prostatic hyperplasia with lower urinary tract symptoms; E86.0 Dehydration; R33.8 Other retention of urine; R53.81 Other malaise; R13.12 Dysphagia, oropharyngeal phase; Z23 Encounter for immunization; Z95.1 Presence of aortocoronary bypass graft; Z89.431 Acquired absence of right foot; Z79.4 Long term (current) use of insulin; Z79.82 Long term (current) use of aspirin; Z79.01 Long term (current) use of anticoagulants; Z79.899 Other long term (current) drug therapy; Z87.891 Personal history of nicotine dependence; Z86.73 Personal history of transient ischemic attack (TIA), and cerebral infarction without residual deficits
CPT/HCPCS: 36415; 36569; 70110; 70450; 70551; 71045; 73630; 73718; 74230; 78306; 80048; 80053; 80061; 81001; 82962; 83036; 83605; 83735; 84100; 84443; 84484; 85025; 85610; 85652; 86140; 87040; 87070; 87075; 87077; 87086; 87149; 87186; 87205; 87426; 87640; 92507; 92526; 92610; 92611; 93005; 93306; 93312; 93320; 93325; 93923; 97110; 97162; 97167; 97530; 97535; 99251; 99285; A9503; J7040; J7050; J7120; Q9957; 90686; A4216; C8929; G0463; J2405; J3490

== ENCOUNTER 2021-08-13 21:13 | Emergency (ER) | payer OTHER, MEDICARE, SELFPAY ==
[2021-08-13 21:15] VITALS: BP 98/56; PULSE 72; RESP 16; TEMP 36.5; O2SAT 96; BMI 24.0
--- NOTE | 2021-08-13 21:44 | EDS_ITS ---
HPI History of Present Illness Chief Complaint: General Illness Detail of Chief Complaint: Health provider who is patient's daughter is the primary informant Informant: family Onset/Context/Timing Onset: Hours Context: Sudden Onset Timing: Intermittent (Coughing and choking for 5 to 10 minutes) Quality: Aspirated liquid Location: Home in hospital bed at 75 degree angle Current Severity: Gone Maximum Severity: Moderate Worsened by: Aspiration/choking on liquids Relieved by: Nothing Associated Symptoms Associated Symptoms: None Narrative Narrative: Patient is a 76-year-old male with history of TIA, CVA with expressive aphasia, obstructive sleep apnea and hyperlipidemia who presents after aspiration and choking episode that lasted 5 to 10 minutes. Primary care provider, patient's daughter, called the nurse biofuels production manager who recommended that he be checked out. He has a history of aspiration. His most recent cookie swallow revealed no evidence of aspiration. 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 Sleep apnea Sleep apnea TIA (transient ischemic attack) Type 2 diabetes mellitus with diabetic polyneuropathy Home Medications aspirin 81 mg PO DAILY@0800 06/23/20 [History Last Taken 12/04/20] atorvastatin 40 mg PO QHS 06/23/20 [History Last Taken 12/03/20] cholecalciferol (vitamin D3) 2,000 unit PO DAILY 06/23/20 [History Last Taken 12/04/20] melatonin-pyridoxine HCl (B6) 3 mg PO QHS 06/23/20 [History Last Taken 12/03/20] insulin aspart (niacinamide) 8 unit SUBCUT TID 10/23/20 [History Last Taken 12/04/20] Lantus U-100 Insulin 24 unit SUBCUT QHS 11/16/20 [History Last Taken 12/03/20] acetaminophen [Tylenol Extra Strength] 1,000 mg PO Q6H PRN 11/16/20 [History Last Taken 12/04/20] diclofenac sodium 1 ea TOPICAL BID 12/04/20 [History Last Taken 12/03/20] docusate sodium 100 mg PO BID 12/04/20 [History Last Taken 12/04/20] metoprolol succinate 25 mg PO DAILY #0 tab 02/23/21 [Rx Last Taken Unknown] tamsulosin 0.8 mg PO DAILY@1730 #0 cap 02/23/21 [Rx Last Taken Unknown] Allergy/AdvReac Type Severity Reaction Status Date / Time No Known Allergies Allergy Verified 12/26/20 22:26 Family History Mother Diabetes Father COPD (chronic obstructive pulmonary disease) Surgical History History of spinal surgery Hx of CABG Social History (Updated 08/13/21 @ 21:[address] Alfredo Lozada MD) household members: children Smoking Status: Former smoker alcohol intake: never substance use type: does not use ROS ROS ED Review of Systems ROS Unobtainable: due to mental status Constitutional Constitutional ED: Denies chills, fever(s) or sweats Cardiovascular Cardiovascular: Denies chest pain, orthopnea, palpitations, paroxysmal nocturnal dyspnea or racing heartbeat Respiratory/Chest Respiratory/Chest: Reports cough and dyspnea; Denies dyspnea on exertion, orthopnea, paroxysmal nocturnal dyspnea or sputum Gastrointestinal Gastrointestinal: Denies abdominal pain, nausea or vomiting Neurologic Neurologic: Denies headache(s) Allergic/Immunologic Allergic/Immunologic ED: Denies mouth swelling, tongue swelling or urticaria EXAM Physical Exam Const Vital Signs: 08/13/21 21:15 08/13/21 21:21 Temperature 97.7 F L Temperature Source Temporal Pulse Rate 72 Respiratory Rate 16 Respiratory Effort Normal Respiratory Pattern Normal Blood Pressure 98/56 L Blood Pressure Mean 70 Pulse Ox 96 Oxygen Delivery Method Room Air Positive well nourished and well developed General Appearance ED: well developed and NAD; Negative for cyanotic or diaphoretic HEENT Reports moist mucous membranes HEENT Narrative: Uvula midline. No erythema or exudate posterior pharynx. No drooling. Negative for trauma or tenderness Eyes PERRL and EOMs intact bilaterally General Eye ED: Negative for pale conjunctiva or scleral icterus Neck no lymphadenopathy, supple and no JVD Resp normal respiratory effort and No clear to auscultation bilaterally Effort and Inspection: pain with movement Auscultation: rales bilateral base (That cleared after coughing) Cardio regular rate, regular rhythm, S1 normal heart sound, S2 normal heart sound and no murmurs GI normal to inspection, nondistended, normoactive bowel sounds and non-tender Palpation: soft Back/Spine no CVA tenderness Extremity normal to inspection Psych mental status grossly normal Skin no rashes or lesions noted and no wounds MDM MDM MDM Narrative Medical decision making narrative: Patient presents for evaluation after choking episode. Since he did have rales which cleared suspect this is atelectasis and not aspiration. Chest x-ray is obtained to evaluate for evidence of aspiration pneumonitis. Radiography Chest X-Ray - ED: 2 View and Read by ED Physician (2 view chest x-ray independently reviewed and interpreted by me at 2315. Patient has chronic changes. There is no evidence of infiltrate in the right middle lobe. Evidence of prior orthopedic procedure of the dorsal spine noted. Cardiac silhouette and size normal. Perihilar regions normal. No ) Discharge Plan Triage Chief Complaint: General Illness ED Provider: Alrfedo Lozada Dx/Rx/DC Orders Clinical Impression: Choking episode, Aspiration into airway Instructions: ED Choking Spell (Adult) Prescriptions: No Action aspirin 81 MG tablet,chewable 81 mg PO DAILY@0800 RF: 0 melatonin-pyridoxine HCl (B6) 1 EACH tablet 3 mg PO QHS RF: 0 atorvastatin 40 MG tablet 40 mg PO QHS RF: 0 cholecalciferol (vitamin D3) 50 MCG capsule 2,000 unit PO DAILY RF: 0 insulin aspart (niacinamide) 100 unit/mL (3 mL) Insulin Pen 8 unit SUBCUT TID RF: 0 Lantus U-100 Insulin 100 unit/mL Solution 24 unit SUBCUT QHS RF: 0 acetaminophen [Tylenol Extra Strength] 500 mg Tablet 1,000 mg PO Q6H PRN (Reason: Pain) RF: 0 docusate sodium 100 mg Capsule 100 mg PO BID RF: 0 diclofenac sodium 1 % Gel 1 ea TOPICAL BID RF: 0 metoprolol succinate 25 mg Tablet Extended Release 24 Hr 25 mg PO DAILY Qty: 0 RF: 0 tamsulosin 0.4 mg Capsule 0.8 mg PO DAILY@1730 Qty: 0 RF: 0 [facility] Provider] - As Needed Disposition Disposition: Home, Self Care
--- NOTE | 2021-08-13 22:05 | RAD_ITS ---
STUDY: X-RAY CHEST REASON FOR EXAM: Male, 76 years old. Choking episode after aspirating liquid TECHNIQUE: PA and lateral views. COMPARISON: February 13 and February 12, 2021.. FINDINGS: The lungs are clear and expanded. There is no demonstrated pleural abnormality with the exception of mild blunting of the left lateral costophrenic angle which may be chronic, there are postoperative changes and old rib fractures on the left. Normal size heart. Normal mediastinum and ibeth. Normal visualized pulmonary arteries. Normal visualized aortic arch and descending thoracic aorta. There are new stabilization rods of the thoracic spine compared to prior exam. There appears to be large bone plug at the midthoracic spine the lateral view, no obvious displacement. Multilevel spondylosis. Old healed left lateral rib fracture at fifth and sixth lateral ribs with overlying surgical clips. Median sternotomy wires are again noted. There is no demonstrated abnormality of the visualized soft tissue structures of the upper abdomen. RAD/Chest PA and Lateral IMPRESSION: Postoperative changes of the thoracic spine, surgical clips and at least subacute healed rib fractures, and blunting of the left lateral costophrenic angle, suspected to be postoperative scarring. No other suspicious findings. No evidence of aspiration. Electronically Signed: Silvina Shane MD at 23:22 EDT ,
[2021-08-13 23:24] VITALS: BP 100/60; PULSE 75; RESP 16; O2SAT 97
== END 2021-08-13 23:25 | disposition home or self-care (01) ==
PROVIDERS: Emergency Provider Emergency Medicine; Visit Provider Emergency Medicine
DX: T17.498A Other foreign object in trachea causing other injury, initial encounter (principal); F03.90 Unspecified dementia, unspecified severity, without behavioral disturbance, psychotic disturbance, mood disturbance, and anxiety; I11.0 Hypertensive heart disease with heart failure; I50.9 Heart failure, unspecified; E11.42 Type 2 diabetes mellitus with diabetic polyneuropathy; I48.91 Unspecified atrial fibrillation; Z79.4 Long term (current) use of insulin; X58.XXXA Exposure to other specified factors, initial encounter; Z79.82 Long term (current) use of aspirin; Z79.899 Other long term (current) drug therapy; Z87.891 Personal history of nicotine dependence
CPT/HCPCS: 71046; 99282

== ENCOUNTER 2022-01-20 01:34 | Emergency (ER) | payer OTHER, SELFPAY ==
[2022-01-20 01:34] VITALS: BP 142/66; PULSE 69; RESP 18; TEMP 36.3; O2SAT 95; BMI 26.8
--- NOTE | 2022-01-20 01:46 | EDS_ITS ---
HPI History of Present Illness Chief Complaint: Complaint Detail of Chief Complaint: Gross hematuria tonight. History of BPH. Informant: patient and family Pain Onset: Today and Hours Context: Gradual Onset Timing: Continuous Current Severity: Mild Maximum Severity: Mild Narrative Narrative: 76-year-old male history of A. fib, hypertension, diabetes, TIAs and anemia. He is on Lovenox shots daily at night. Daughter helps take care of him. He had gross hematuria tonight. He does have a history of enlarged prostate and [facility] He denies any fever. He denies any dysuria. 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 Sleep apnea Sleep apnea TIA (transient ischemic attack) Type 2 diabetes mellitus with diabetic polyneuropathy Home Medications aspirin 81 mg chewable tablet 81 mg PO DAILY@0800 06/23/20 [History Last Taken 12/04/20] atorvastatin 40 mg tablet 40 mg PO QHS 06/23/20 [History Last Taken 12/03/20] cholecalciferol (vitamin D3) 50 mcg (2,000 unit) capsule 2,000 unit PO DAILY 06/23/20 [History Last Taken 12/04/20] acetaminophen 500 mg tablet (Tylenol Extra Strength) 1,000 mg PO Q6H PRN Pain 11/16/20 [History Last Taken 12/04/20] insulin glargine 100 unit/mL subcutaneous solution (Lantus U-100 Insulin) 28 unit subcut QHS DM 11/16/20 [History Last Taken 12/03/20] docusate sodium 100 mg capsule 100 mg PO BID CONSTIPATION 12/04/20 [History Last Taken 12/04/20] tamsulosin 0.4 mg capsule 0.8 mg PO DAILY@1730 #0 caps 02/23/21 [Rx Last Taken Unknown] cephalexin HCl 500 mg tablet 1,000 mg PO BID 08/13/21 [History Last Taken Unknown] ferrous sulfate 325 mg (65 mg iron) tablet 325 mg PO DAILY 08/13/21 [History Last Taken Unknown] finasteride 5 mg tablet 5 mg PO DAILY 08/13/21 [History Last Taken Unknown] fondaparinux 7.5 mg/0.6 mL subcutaneous solution syringe 7.5 mg subcut QHS 08/13/21 [History Last Taken Unknown] metoprolol succinate 25 mg tablet,extended release 24 hr 50 mg PO DAILY 08/13/21 [History Last Taken Unknown] polyethylene glycol 30 ml miscellaneous DAILY 08/13/21 [History Last Taken Unknown] sertraline 50 mg tablet 50 mg PO QHS 08/13/21 [History Last Taken Unknown] insulin aspart U-100 100 unit/mL subcutaneous solution (Novolog U-100 Insulin aspart) 10 unit subcut 0800 01/20/22 [History Last Taken Unknown] insulin aspart U-100 100 unit/mL subcutaneous solution (Novolog U-100 Insulin aspart) 14 unit subcut 1200,1700 01/20/22 [History Last Taken Unknown] melatonin 3 mg tablet 3 mg PO QHS 01/20/22 [History Last Taken Unknown] Allergy/AdvReac Type Severity Reaction Status Date / Time No Known Allergies Allergy Verified 12/26/20 22:26 Family History Mother Diabetes Father COPD (chronic obstructive pulmonary disease) Surgical History History of spinal surgery Hx of CABG Social History household members: children Smoking Status: Former smoker alcohol intake: never substance use type: does not use ROS ROS ED ROS Narrative Gross hematuria today. Review of Systems ROS Unobtainable: Denies due to encephalopathy Constitutional Constitutional ED: Denies chills or fever(s) Eyes Eyes: Denies blurry vision ENT ENT ED: Denies ear pain Cardiovascular Cardiovascular: Denies chest pain Respiratory/Chest Respiratory/Chest: Denies cough or dyspnea Gastrointestinal Gastrointestinal: Denies abdominal pain Genitourinary Genitourinary ED: Reports hematuria and urinary frequency; Denies dysuria Musculoskeletal Musculoskeletal: Denies arthralgias Integumentary Denies abscess Neurologic Neurologic: Denies headache(s) Psychiatric Psychiatric: Denies anxiety Endocrine Endocrinology: Denies polydipsia Hematologic/Lymphatic Hematologic/Lymphatic: Denies easy bleeding Allergic/Immunologic Allergic/Immunologic ED: Denies mouth swelling EXAM Physical Exam Narrative Exam Narrative: 76-year-old male no acute distress vital signs stable afebrile. Daughter present in the room. HEENT exam unremarkable. Lungs clear. Heart regular rhythm rate about 70 no murmur. Abdomen soft nondistended, normal bowel sounds, no peritoneal signs. Moving all 4 extremities. He is awake and alert. Answering questions following commands. External exam circumcised male. No abnormality. Const Vital Signs: 01/20/22 01:34 Temperature 97.4 F L Temperature Source Oral Pulse Rate 69 Respiratory Rate 18 Blood Pressure 142/66 H Blood Pressure Mean 91 Pulse Ox 95 Oxygen Delivery Method Room Air Positive well nourished and well developed; Negative for obese, cachectic, contractures or unkempt General Appearance ED: well developed and NAD; Negative for unkempt, cachectic, contractures or pallor Nutritional Appearance: Negative for cachectic or obese HEENT Reports moist mucous membranes; Denies dry mucous membranes normocephalic and atraumatic; Negative for trauma or tenderness Mouth ED: No dry mucous membranes Mouth: No dry mucous membranes Eyes PERRL and EOMs intact bilaterally General Eye ED: Negative for pale conjunctiva or scleral icterus Neck no lymphadenopathy, supple and no JVD General: Negative for tenderness Resp normal respiratory effort and clear to auscultation bilaterally Effort and Inspection: Negative for retractions Auscultation: Negative for rales, rhonchi or wheezes Cardio regular rate, regular rhythm, S1 normal heart sound, S2 normal heart sound and no murmurs Rate: Negative for bradycardia Rhythm: Negative for abnormal rhythm GI non-tender, non-distended and no masses Inspection: Negative for abdominal distention Auscultation: normoactive bowel sounds Palpation: soft; Negative for tender no CVA tenderness Groin / Perineum Exam: Negative for edema or lesions Back/Spine no CVA tenderness General Back: Negative for CVA tenderness Cervical Spine: Negative for cervical spine tenderness Thoracic Spine / Upper Back: Negative for thoracic spinal tenderness Lumbar Spine / Lower Back: Negative for lumbar spinal tenderness Extremity normal to inspection General Extremety ED: Negative for edema General Extremity: Negative for edema Neuro oriented x3, moves all extremities and no focal motor deficits Sensorium / Orientation: alert, oriented to person, oriented to place and oriented to time Motor Exam: strength 5/5 throughout Psych mental status grossly normal Appearance: Negative for unkempt Mood & Affect: Negative for depressed Thought Process: normal thought process Thought Content: normal thought content Skin General Skin Exam: Negative for jaundice or pallor Lesions: no lesions Rashes: no rashes Trauma: Negative for abrasion MDM MDM MDM Narrative Medical decision making narrative: 76-year-old history of BPH with gross hematuria. He is on Lovenox shots daily. He will be worked up for possible UTI versus hematuria of uncertain etiology and rule out urinary retention. Screening labs and bladder scan will be obtained along with urinalysis. Repeat exam at 2:35 AM patient doing well. He will be discharged home. We went over all his test results. [facility] He just had a cystoscope 1 month ago. He knows to return if unable to urinate or starts bleeding significantly heavier. A urine culture will be sent also. Lab Data Attestation: I reviewed the patient's lab results. Lab results narrative: CBC shows a white count 9.6 H&H 11.8 and 36.2 which is his baseline anemia are actually improved. Platelets are 216. Electrolytes show a anion gap of 7 BUN of 33 creatinine 1.62 glucose of 237. His UA shows occult blood no nitrates. Creatinine 100 red cells greater than 100 white cells no bacteria. A culture will be sent. Clinically I do not think this is a UTI. Bladder scan was 0. No signs of urinary retention. Labs: Laboratory Results - last 24 hr 01/20/22 01/20/22 01/20/22 01:45 02:00 02:00 WBC 9.6 RBC 3.95 L Hgb 11.8 L Hct 36.2 L MCV 91.6 MCH 29.9 MCHC 32.6 RDW Std Deviation 44.2 H RDW Coeff of Fernando 13.2 Plt Count 216 MPV 9.8 Immature Gran % (Auto) 0.300 Neut % (Auto) 56.9 Lymph % (Auto) 26.4 [place] % (Auto) 9.2 Eos % (Auto) 6.7 H Baso % (Auto) 0.5 Absolute Neuts (auto) 5.5 Absolute Lymphs (auto) 2.53 Nucleated RBC % 0 Sodium 143 Potassium 4.3 Chloride 113 H Carbon Dioxide 23.0 Anion Gap 7 BUN 33 H Creatinine 1.62 H Estim Creat Clear Calc 40.01 Est GFR (MDRD) Af Amer 54 L Est GFR (MDRD) Non-Af 44 L BUN/Creatinine Ratio 20.4 H Glucose 237 H Calcium 8.4 L Urine Color RED Urine Clarity Turbid Urine pH 6.0 Ur Specific [place] 1.020 Urine Protein 500 H Urine Glucose (UA) 100 H Urine Ketones 5 H Urine Occult Blood 250 H Urine Nitrite Negative Urine Bilirubin Negative Urine Urobilinogen Normal Ur Leukocyte Esterase 500 H Urine RBC > 100 SEEN Urine WBC >100 SEEN Ur Squamous Epith Cells 0 SEEN Urine Bacteria 0 SEEN Urine Mucus 0 SEEN Discharge Plan Triage Chief Complaint: Complaint ED Provider: Romain Mccullough Dx/Rx/DC Orders Clinical Impression: Hematuria, Chronic anticoagulation, History of diabetes mellitus, History of recurrent TIAs Instructions: ED Hematuria Prescriptions: No Action aspirin 81 MG tablet,chewable 81 mg PO DAILY@0800 atorvastatin 40 MG tablet 40 mg PO QHS cholecalciferol (vitamin D3) 50 MCG capsule 2,000 unit PO DAILY insulin glargine [Lantus U-100 Insulin] 100 unit/mL Solution 28 unit SUBCUT QHS acetaminophen [Tylenol Extra Strength] 500 mg Tablet 1,000 mg PO Q6H PRN (Reason: Pain) docusate sodium 100 mg Capsule 100 mg PO BID tamsulosin 0.4 mg Capsule 0.8 mg PO DAILY@1730 Qty: 0 0RF cephalexin HCl 500 mg Tablet 1,000 mg PO BID ferrous sulfate 325 mg (65 mg iron) Tablet 325 mg PO DAILY sertraline 50 mg Tablet 50 mg PO QHS finasteride 5 mg Tablet 5 mg PO DAILY polyethylene glycol Liquid 30 ml miscellaneous DAILY fondaparinux 7.5 mg/0.6 mL Syringe 7.5 mg SUBCUT QHS metoprolol succinate 25 mg tablet extended release 24 hr 50 mg PO DAILY melatonin 3 mg Tablet 3 mg PO QHS insulin aspart U-100 [Novolog U-100 Insulin aspart] 100 unit/mL Solution 14 unit subcut 1200,1700 insulin aspart U-100 [Novolog U-100 Insulin aspart] 100 unit/mL Solution 10 unit SUBCUT 0800 [facility] [facility] [facility] [Primary [place] Provider] - Activity Restrictions/Additional Instructions: Plenty of water and rest. Follow[facility] with [facility] to be reassessed. If you are unable to urinate or start urinating large clots you need to be reevaluated. At this time there is no signs of a urinary tract infection. A urine culture will be sent. Disposition Disposition: Home, Self Care
[2022-01-20 01:57] LABS: Bacteria 0 SEEN /hpf (None Seen); Mucous, Urine 0 SEEN /hpf (<or=2+); Squamous Epithelial Cells - UA 0 SEEN /hpf (0-5)
[2022-01-20 02:07] LABS: Color, Urine RED (Yellow); Glucose, Dipstick 100 mg/dl (Normal); Ketone-Dipstick 5 mg/dl (Negative); Leukocyte Esterase-Dipstick 500 /ul (Negative); Nitrite-Dipstick Negative (Negative); Occult Blood-Urine 250 /ul (Negative); Protein-Dipstick 500 mg/dl (Negative); Urine Bilirubin Dipstick Negative (Negative); Urine Clarity Turbid (Clear); Urine Urobilinogen Normal (Normal)
[2022-01-20 02:08] LABS: White Blood Cells >100 SEEN /hpf (0-5)
[2022-01-20 02:09] LABS: Red Blood Cells-Urine > 100 SEEN /hpf (0-5)
[2022-01-20 02:17] LABS: Absolute Lymphocyte Count 2.53 X10^3/uL (0.83-4.51); Absolute Neutrophil Count 5.5 X10^3/uL (2.0-7.7); Basophil# 0.05 X10^3/uL; Basophil% 0.5 % (0-1); Eosinophil# 0.64 X10^3/uL; Eosinophils% 6.7 % (0-5); Hematocrit 36.2 % (40-54); Hemoglobin 11.8 g/dL (13.0-16.5); Lymphocyte # 2.53 X10^3/ul (0.83-4.51); Lymphocyte % 26.4 % (19-41); Mean Corp Hgb Conc 32.6 g/dL (32-36); Mean Corpuscular Hgb 29.9 pg (27.0-32.0); Mean Corpuscular Volume 91.6 fL (80-94); Mean Platelet Vol. 9.8 fl (6.2-12.0); Monocyte# 0.88 X10^3/uL; Monocyte% 9.2 % (0-10); NRBC Flagged by Analyzer 0 % (0-5); Neutrophil # 5.46 X10^3/uL (2.7-7.7); Neutrophil % 56.9 % (47-70); Platelet Count 216 K/mm3 (150-450); RBC Distribution Width CV 13.2 % (11.6-14.6); RBC Distribution Width SD 44.2 fl (35.1-43.9); Red Blood Count 3.95 M/mm3 (4.6-6.2); White Blood Count 9.6 K/mm3 (4.4-11.0)
[2022-01-20 02:21] LABS: Anion Gap 7 (5-15); BUN 33 mg/dL (7-18); BUN/Creat Ratio 20.4 RATIO (10-20); Calcium,Total 8.4 mg/dL (8.5-10.1); Chloride 113 mmol/L (98-107); Creatinine, Serum 1.62 mg/dL (0.70-1.30); EST Glomerular Filtration Rate 44 mL/min (>60); Est Glom Filt Rate - Afr Amer 54 mL/min (>60); Estimated Creatinine Clearance 40.01 ml/min; Glucose 237 mg/dL (74-106); Potassium 4.3 mmol/L (3.5-5.1); Sodium Level 143 mmol/L (136-145)
[2022-01-20 02:56] VITALS: BP 143/60; PULSE 78; RESP 18
--- NOTE | 2022-01-20 03:44 | ED.RN ---
0256 PT'S DAUGHTER VERY UPSET THAT WE HAVE NOT FIGURED OUT WHY THE PT IS BLEEDING. DAUGHTER MADE AWARE THAT THE MD CHECKED HIS BLOOD COUNT AND TESTED HIS URINE. MD FELT HE WAS FINE WITH BEING DISCHARGED,BUT TO KEEP THE UROLOGIST APPOINTMENT ON FRIDAY SCHEDULED. DAUGHTER WAS STILL UPSET AND CONTINUAL EDUCATION ON THE PROCESS DID NOT SUFFICE. DAUGHTER SAID SHE WAS CALLING THE [facility] NOW AND GOING THERE.
== END 2022-01-20 02:57 | disposition home or self-care (01) ==
PROVIDERS: Emergency Provider Emergency Medicine; Visit Provider Emergency Medicine
DX: N40.1 Benign prostatic hyperplasia with lower urinary tract symptoms (principal); E11.51 Type 2 diabetes mellitus with diabetic peripheral angiopathy without gangrene; F03.90 Unspecified dementia, unspecified severity, without behavioral disturbance, psychotic disturbance, mood disturbance, and anxiety; I11.0 Hypertensive heart disease with heart failure; I50.9 Heart failure, unspecified; E11.42 Type 2 diabetes mellitus with diabetic polyneuropathy; I48.91 Unspecified atrial fibrillation; Z79.4 Long term (current) use of insulin; R31.0 Gross hematuria; Z95.1 Presence of aortocoronary bypass graft; Z79.01 Long term (current) use of anticoagulants; Z79.82 Long term (current) use of aspirin; Z79.899 Other long term (current) drug therapy; Z86.73 Personal history of transient ischemic attack (TIA), and cerebral infarction without residual deficits; Z87.891 Personal history of nicotine dependence
CPT/HCPCS: 80048; 81001; 85025; 87086; 87088; 99282

== ENCOUNTER 2022-08-20 23:02 | Emergency (ER) | payer OTHER, SELFPAY ==
[2022-08-20 23:03] VITALS: BP 94/62; PULSE 84; RESP 16; TEMP 35.7; O2SAT 94
--- NOTE | 2022-08-21 01:13 | RAD_ITS ---
STUDY: X-RAY - ACUTE ABDOMINAL SERIES REASON FOR EXAM: Male, 77 years old patient with abdominal pain. TECHNIQUE: Single view of the chest. Supine, and erect view(s) of the abdomen were obtained. COMPARISON: Chest radiograph dated August 13, 2021. FINDINGS: Patient is status post sternotomy. The lungs are clear and under expanded. Normal size heart. Normal mediastinum and ibeth. Normal visualized pulmonary arteries. There is atherosclerotic calcification of the aortic arch with tortuosity. There is no obvious dilated bowel. However, there are several loops of small bowel that are distended with gas with scattered air-fluid levels particularly within the lower abdomen. The soft tissue structures of the abdomen and pelvis are unremarkable. There are diffuse degenerative changes of the visualized lumbar spine. Patient has had surgery on the thoracic spine with multiple interpedicular screws and rods. Patient also has had surgery in the lower lumbar spine. There are degenerative changes of both hips. RAD/Acute Abdomen Inc Chest IMPRESSION: 1. No obvious acute cardiopulmonary disease. 2. Findings suggest possible sequela of infectious or inflammatory enteritis. Electronically Signed: Monserrat Kirk MD at 1:58 EDT ,
[2022-08-21 01:15] LABS: Absolute Lymphocyte Count 1.87 X10^3/uL (0.83-4.51); Absolute Neutrophil Count 8.7 X10^3/uL (2.0-7.7); Basophil# 0.05 X10^3/uL; Basophil% 0.4 % (0-1); Eosinophils% 2.6 % (0-5); Hemoglobin 12.3 g/dL (13.0-16.5); Lymphocyte # 1.87 X10^3/ul (0.83-4.51); Mean Corp Hgb Conc 33.2 g/dL (32-36); Mean Corpuscular Hgb 29.9 pg (27.0-32.0); Monocyte# 0.71 X10^3/uL; Monocyte% 6.1 % (0-10); NRBC Flagged by Analyzer 0 % (0-5); Neutrophil # 8.74 X10^3/uL (2.7-7.7); Neutrophil % 74.5 % (47-70); Platelet Count 261 K/mm3 (150-450); Red Blood Count 4.11 M/mm3 (4.6-6.2); White Blood Count 11.7 K/mm3 (4.4-11.0)
[2022-08-21 01:33] LABS: AST(SGOT) 11 U/L (15-37); Alanine Aminotransfer ALT/SGPT 15 U/L (16-61); Albumin, Serum 3.2 g/dL (3.2-5.0); Alkaline Phosphatase 69 U/L (45-117); Anion Gap 5 (5-15); BUN 21 mg/dL (7-18); BUN/Creat Ratio 16.4 RATIO (10-20); Calcium,Total 8.4 mg/dL (8.5-10.1); Chloride 101 mmol/L (98-107); Creatinine, Serum 1.28 mg/dL (0.70-1.30); EST Glomerular Filtration Rate 58 mL/min (>60); Est Glom Filt Rate - Afr Amer 70 mL/min (>60); Globulin 3.3 g/dL (2.2-4.2); Glucose 340 mg/dL (74-106); Potassium 4.5 mmol/L (3.5-5.1); Protein, Total 6.5 g/dL (6.4-8.2); Sodium Level 130 mmol/L (136-145)
--- NOTE | 2022-08-21 02:23 | EDS_ITS ---
HPI History of Present Illness Chief Complaint: Nausea/Vomiting Narrative Narrative: Patient is a 77-year-old male with past medical history of insulin-dependent diabetes as well as hypertension and dementia. Patient and daughter states that this evening he became nauseous and had bouts of vomiting. Daughter states there was streaks of blood in the vomit. She states she called the nurse hotline secondary to this and advised her to bring him into the hospital for evaluation. Patient states that since arriving to the hospital he has had no further bouts of vomiting and denies any further nausea. He states there has been no blood in his stool or urine. He denies any recent sick contact. 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 Sleep apnea Sleep apnea TIA (transient ischemic attack) Type 2 diabetes mellitus with diabetic polyneuropathy Home Medications aspirin 81 mg chewable tablet 81 mg PO DAILY@0800 06/23/20 [History Last Taken 12/04/20] atorvastatin 40 mg tablet 40 mg PO QHS 06/23/20 [History Last Taken 12/03/20] cholecalciferol (vitamin D3) 50 mcg (2,000 unit) capsule 2,000 unit PO DAILY 06/23/20 [History Last Taken 12/04/20] acetaminophen 500 mg tablet (Tylenol Extra Strength) 1,000 mg PO Q6H PRN Pain 11/16/20 [History Last Taken 12/04/20] insulin glargine 100 unit/mL subcutaneous solution (Lantus U-100 Insulin) 28 unit subcut QHS DM 11/16/20 [History Last Taken 12/03/20] docusate sodium 100 mg capsule 100 mg PO BID CONSTIPATION 12/04/20 [History Last Taken 12/04/20] tamsulosin 0.4 mg capsule 0.8 mg PO DAILY@1730 #0 caps 02/23/21 [Rx Last Taken Unknown] cephalexin HCl 500 mg tablet 1,000 mg PO BID 08/13/21 [History Last Taken Unknown] ferrous sulfate 325 mg (65 mg iron) tablet 325 mg PO DAILY 08/13/21 [History Last Taken Unknown] finasteride 5 mg tablet 5 mg PO DAILY 08/13/21 [History Last Taken Unknown] fondaparinux 7.5 mg/0.6 mL subcutaneous solution syringe 7.5 mg subcut QHS 08/13/21 [History Last Taken Unknown] metoprolol succinate 25 mg tablet,extended release 24 hr 50 mg PO DAILY 08/13/21 [History Last Taken Unknown] polyethylene glycol 30 ml miscellaneous DAILY 08/13/21 [History Last Taken Unknown] sertraline 50 mg tablet 50 mg PO QHS 08/13/21 [History Last Taken Unknown] insulin aspart U-100 100 unit/mL subcutaneous solution (Novolog U-100 Insulin aspart) 10 unit subcut 0800 01/20/22 [History Last Taken Unknown] insulin aspart U-100 100 unit/mL subcutaneous solution (Novolog U-100 Insulin aspart) 14 unit subcut 1200,1700 01/20/22 [History Last Taken Unknown] melatonin 3 mg tablet 3 mg PO QHS 01/20/22 [History Last Taken Unknown] ondansetron 4 mg disintegrating tablet 4 mg PO TID PRN nausea and vomiting #21 tabs 08/21/22 [Rx Last Taken Unknown] Allergy/AdvReac Type Severity Reaction Status Date / Time No Known Allergies Allergy Verified 08/20/22 23:03 Family History Mother Diabetes Father COPD (chronic obstructive pulmonary disease) Surgical History History of spinal surgery Hx of CABG Social History household members: children Smoking Status: Former smoker alcohol intake: never substance use type: does not use ROS ROS ED Constitutional Constitutional ED: Denies chills or fever(s) ENT ENT ED: Denies sore throat Cardiovascular Cardiovascular: Denies chest pain Respiratory/Chest Respiratory/Chest: Denies cough or dyspnea Gastrointestinal Gastrointestinal: Reports nausea and vomiting; Denies abdominal pain or diarrhea Genitourinary Genitourinary ED: Denies dysuria Musculoskeletal Musculoskeletal: Denies myalgias Integumentary Denies rash Neurologic Neurologic: Denies headache(s) Hematologic/Lymphatic Hematologic/Lymphatic: Reports easy bleeding and easy bruising EXAM Physical Exam Const Vital Signs: 08/20/22 23:03 Temperature 96.3 F L Temperature Source Temporal Pulse Rate 84 Respiratory Rate 16 Blood Pressure 94/62 Blood Pressure Mean 72 Pulse Ox 94 Oxygen Delivery Method Room Air Positive well nourished and well developed General Appearance ED: well developed; Negative for pallor HEENT Reports dry mucous membranes HEENT Narrative: No signs of infection noted in the posterior pharynx Mouth ED: Yes dry mucous membranes Mouth: dry mucous membranes Eyes PERRL and EOMs intact bilaterally General Eye ED: Negative for scleral icterus Neck supple Neck Narrative: No crepitance palpated No pain with external manipulation of the thyroid cartilage Chest Wall palpation of chest normal Resp normal respiratory effort and clear to auscultation bilaterally Cardio regular rate and regular rhythm GI normal to inspection, nondistended, normoactive bowel sounds, non-tender, non- distended and no masses GI Narrative: No voluntary guarding or rigidity no pulsatile mass Auscultation: normoactive bowel sounds Palpation: soft Extremity normal to inspection Neuro CN's II-XII intact bilaterally Neuro Narrative: Patient is at his baseline mental status with no focal neurologic deficits Sensorium / Orientation: alert Psych mental status grossly normal Skin no rashes or lesions noted General Skin Exam: Negative for pallor MDM MDM MDM Narrative Medical decision making narrative: Patient presented to the ER with stable vitals and spontaneous resolution of symptoms. However as patient did have bouts of hematemesis a basic work-up was obtained. Differential includes Boerhaave syndrome Lakshmi-Adorno tear gastritis viral gastroenteritis pancreatitis or biliary colic. Basic blood work showed no clinically significant findings such as acute anemia or thrombocytopenia. The patient had no further bouts of vomiting without any medication given. Therefore at this time as patient's vitals are stable his labs revealed no clinically significant findings and imaging shows no signs of rupture or free air he is otherwise safe for discharge History & Record Review Discussion w/independent historian: Patient and Family Lab Data Attestation: I reviewed the patient's lab results. Labs: Laboratory Results - last 24 hr 08/21/22 08/21/22 00:12 00:12 WBC 11.7 H RBC 4.11 L Hgb 12.3 L Hct 37.0 L MCV 90.0 MCH 29.9 MCHC 33.2 RDW Std Deviation 43.0 RDW Coeff of Fernando 13.0 Plt Count 261 MPV 10.0 Immature Gran % (Auto) 0.400 Neut % (Auto) 74.5 H Lymph % (Auto) 16.0 L Sargent % (Auto) 6.1 Eos % (Auto) 2.6 Baso % (Auto) 0.4 Absolute Neuts (auto) 8.7 H Absolute Lymphs (auto) 1.87 Nucleated RBC % 0 Sodium 130 L Potassium 4.5 Chloride 101 Carbon Dioxide 24.0 Anion Gap 5 BUN 21 H Creatinine 1.28 Est GFR (MDRD) Af Amer 70 Est GFR (MDRD) Non-Af 58 L BUN/Creatinine Ratio 16.4 Glucose 340 H Calcium 8.4 L Total Bilirubin 0.40 AST 11 L ALT 15 L Alkaline Phosphatase 69 Total Protein 6.5 Albumin 3.2 Globulin 3.3 Albumin/Globulin Ratio 1.0 Radiography Diagnostic Testing: Clinical Impression(s) from Imaging Studies Acute Abdomen Series 08/21/22 01:13 IMPRESSION: 1. No obvious acute cardiopulmonary disease. 2. Findings suggest possible sequela of infectious or inflammatory enteritis. Electronically Signed: Monserrat Kirk MD at 1:58 EDT Reading Location ID and State: [facility] / [place] , Service support , Acute abdominal series x-ray with 1 view chest as interpreted by the emergency medicine physician reveals a nonobstructive bowel gas pattern and chest x-ray component reveals no acute infiltrate pneumothorax or pleural effusion Discharge Plan Triage Chief Complaint: Nausea/Vomiting Other Complaint: GI Bleed ED Provider: Chava Kwon Dx/Rx/DC Orders Clinical Impression: Nausea and vomiting, Insulin dependent diabetes mellitus, History of TIAs Instructions: ED Gastroenteritis, Viral (Adult) Prescriptions: New ondansetron 4 mg tablet,disintegrating 4 mg PO TID PRN (Reason: nausea and vomiting) Qty: 21 0RF No Action aspirin 81 MG tablet,chewable 81 mg PO DAILY@0800 atorvastatin 40 MG tablet 40 mg PO QHS cholecalciferol (vitamin D3) 50 MCG capsule 2,000 unit PO DAILY insulin glargine [Lantus U-100 Insulin] 100 unit/mL Solution 28 unit SUBCUT QHS acetaminophen [Tylenol Extra Strength] 500 mg Tablet 1,000 mg PO Q6H PRN (Reason: Pain) docusate sodium 100 mg Capsule 100 mg PO BID tamsulosin 0.4 mg Capsule 0.8 mg PO DAILY@1730 Qty: 0 0RF cephalexin HCl 500 mg Tablet 1,000 mg PO BID ferrous sulfate 325 mg (65 mg iron) Tablet 325 mg PO DAILY sertraline 50 mg Tablet 50 mg PO QHS finasteride 5 mg Tablet 5 mg PO DAILY polyethylene glycol Liquid 30 ml miscellaneous DAILY fondaparinux 7.5 mg/0.6 mL Syringe 7.5 mg SUBCUT QHS metoprolol succinate 25 mg tablet extended release 24 hr 50 mg PO DAILY melatonin 3 mg Tablet 3 mg PO QHS insulin aspart U-100 [Novolog U-100 Insulin aspart] 100 unit/mL Solution 14 unit subcut 1200,1700 insulin aspart U-100 [Novolog U-100 Insulin aspart] 100 unit/mL Solution 10 unit SUBCUT 0800 Primary Care Provider: [facility] [facility] [Primary Care Provider] - Activity Restrictions/Additional Instructions: Please keep yourself well-hydrated and use the Zofran as prescribed for any further bouts of nausea and vomiting. Return to the ER should you have any further concerns Disposition Disposition: Home, Self Care Discharge Date/Time: 08/21/22 02:58
[2022-08-21 02:39] VITALS: BMI 31.0
== END 2022-08-21 02:58 | disposition home or self-care (01) ==
PROVIDERS: Emergency Provider Emergency Medicine; Visit Provider Emergency Medicine
DX: R11.2 Nausea with vomiting, unspecified (principal); E11.51 Type 2 diabetes mellitus with diabetic peripheral angiopathy without gangrene; I50.9 Heart failure, unspecified; E11.42 Type 2 diabetes mellitus with diabetic polyneuropathy; Z79.4 Long term (current) use of insulin; G47.30 Sleep apnea, unspecified; Z86.718 Personal history of other venous thrombosis and embolism; Z86.73 Personal history of transient ischemic attack (TIA), and cerebral infarction without residual deficits; Z95.1 Presence of aortocoronary bypass graft; Z87.891 Personal history of nicotine dependence
CPT/HCPCS: 74022; 80053; 85025; 99283

== ENCOUNTER 2022-09-04 13:27 | Emergency (ER) | payer OTHER, SELFPAY ==
[2022-09-04 13:28] VITALS: BP 98/64; PULSE 91; RESP 16; TEMP 36.2; O2SAT 98
[2022-09-04 13:43] VITALS: BMI 29.0
--- NOTE | 2022-09-04 13:46 | EDS_ITS ---
HPI History of Present Illness Chief Complaint: Toscano C/O Detail of Chief Complaint: Toscano obstruction and hematuria with clots Informant: patient and family Onset/Context/Timing Onset: Days Context: Sudden Onset Timing: Intermittent Quality: Gross hematuria since Friday with clots Location: Urethral Toscano catheter Current Severity: Mild Maximum Severity: Severe Worsened by: Obstruction of Toscano with clots Relieved by: Irrigation by daughter Associated Symptoms Associated Symptoms: None Narrative Narrative: Patient is a 77-year-old male with history of benign prostatic hypertrophy who had recurrent urinary tract infection and urinary retention. Toscano was placed. Toscano was placed in January. He is scheduled for a TURP October of this year. He has had problems with obstruction over the past weekend. Daughter has irrigated with transient improvement. Patient attempts to irrigate and has difficulty because of pain and when she aspirates that she removed significant size clots. He presently has a 16 Latvian Toscano in. He denies fever, chills night sweats. He presently denies abdominal pain. He denies scrotal, testicular or penile pain. He denies low back or flank pain. The Toscano was recently changed by the [place] nurse. Daughter states is not unusual after the Toscano is changed that he has bleeding. A 16 Latvian was placed because of difficulty placing a larger Toscano and because of pain. The daughter and patient were made sure that we would use a lidocaine gel to anesthetize the urethra prior to insertion. 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 Sleep apnea Sleep apnea TIA (transient ischemic attack) Type 2 diabetes mellitus with diabetic polyneuropathy Home Medications aspirin 81 mg chewable tablet 81 mg PO DAILY@0800 06/23/20 [History Last Taken 12/04/20] atorvastatin 40 mg tablet 40 mg PO QHS 06/23/20 [History Last Taken 12/03/20] cholecalciferol (vitamin D3) 50 mcg (2,000 unit) capsule 2,000 unit PO DAILY 06/23/20 [History Last Taken 12/04/20] acetaminophen 500 mg tablet (Tylenol Extra Strength) 1,000 mg PO Q6H PRN Pain 11/16/20 [History Last Taken 12/04/20] insulin glargine 100 unit/mL subcutaneous solution (Lantus U-100 Insulin) 28 unit subcut QHS DM 11/16/20 [History Last Taken 12/03/20] docusate sodium 100 mg capsule 100 mg PO BID CONSTIPATION 12/04/20 [History Last Taken 12/04/20] tamsulosin 0.4 mg capsule 0.8 mg PO DAILY@1730 #0 caps 02/23/21 [Rx Last Taken Unknown] cephalexin HCl 500 mg tablet 1,000 mg PO BID 08/13/21 [History Last Taken Unknown] ferrous sulfate 325 mg (65 mg iron) tablet 325 mg PO DAILY 08/13/21 [History Last Taken Unknown] finasteride 5 mg tablet 5 mg PO DAILY 08/13/21 [History Last Taken Unknown] fondaparinux 7.5 mg/0.6 mL subcutaneous solution syringe 7.5 mg subcut QHS 08/13/21 [History Last Taken Unknown] metoprolol succinate 25 mg tablet,extended release 24 hr 50 mg PO DAILY 08/13/21 [History Last Taken Unknown] polyethylene glycol 30 ml miscellaneous DAILY 08/13/21 [History Last Taken Unknown] sertraline 50 mg tablet 50 mg PO QHS 08/13/21 [History Last Taken Unknown] insulin aspart U-100 100 unit/mL subcutaneous solution (Novolog U-100 Insulin aspart) 10 unit subcut 0800 01/20/22 [History Last Taken Unknown] insulin aspart U-100 100 unit/mL subcutaneous solution (Novolog U-100 Insulin aspart) 14 unit subcut 1200,1700 01/20/22 [History Last Taken Unknown] melatonin 3 mg tablet 3 mg PO QHS 01/20/22 [History Last Taken Unknown] ondansetron 4 mg disintegrating tablet 4 mg PO TID PRN nausea and vomiting #21 tabs 08/21/22 [Rx Last Taken Unknown] Allergy/AdvReac Type Severity Reaction Status Date / Time No Known Allergies Allergy Verified 09/04/22 13:30 Family History Mother Diabetes Father COPD (chronic obstructive pulmonary disease) Surgical History History of spinal surgery Hx of CABG Social History household members: children Smoking Status: Former smoker alcohol intake: never substance use type: does not use ROS ROS ED Constitutional Constitutional ED: Denies chills, fever(s), subjective or sweats Eyes Eyes: Denies blurry vision, change in vision or diplopia ENT ENT ED: Denies ear pain, rhinorrhea or sore throat Cardiovascular Cardiovascular: Denies chest pain or palpitations Respiratory/Chest Respiratory/Chest: Denies cough, dyspnea or dyspnea on exertion Gastrointestinal Gastrointestinal: Denies abdominal pain, nausea or vomiting Genitourinary Genitourinary ED: Reports hematuria and other Details: Obstruction of Toscano ; Denies dysuria or urinary frequency Musculoskeletal Musculoskeletal: Denies arthralgias, back pain, myalgias or neck pain Integumentary Denies rash Neurologic Neurologic: Reports weakness Hematologic/Lymphatic Hematologic/Lymphatic: Reports systems reviewed and no addt'l complaints, except as documented EXAM Physical Exam Const Vital Signs: 09/04/22 13:28 Temperature 97.2 F L Temperature Source Temporal Pulse Rate 91 Respiratory Rate 16 Blood Pressure 98/64 Blood Pressure Mean 75 Pulse Ox 98 Oxygen Delivery Method Room Air Positive well nourished and well developed General Appearance ED: well developed and NAD; Negative for cyanotic, diaphoretic or pallor HEENT Reports moist mucous membranes HEENT Narrative: Head is atraumatic normocephalic. Ears are normal. Nares are patent. Mucosa is moist. Eyes PERRL and EOMs intact bilaterally General Eye ED: Negative for pale conjunctiva or scleral icterus Neck no lymphadenopathy, supple and no JVD Chest Wall inspection of chest normal and palpation of chest normal Resp normal respiratory effort and clear to auscultation bilaterally Cardio regular rate, S1 normal heart sound, S2 normal heart sound and no murmurs Rhythm: abnormal rhythm irregularly irregular GI normal to inspection, nondistended, normoactive bowel sounds, non-tender, non- distended and no masses; Negative for hepatosplenomegaly Back/Spine no CVA tenderness Extremity normal to inspection Neuro oriented x3, CN's II-XII intact bilaterally and no sensory deficits noted Sensorium / Orientation: alert Skin no rashes or lesions noted and no wounds General Skin Exam: Negative for jaundice or pallor MDM MDM MDM Narrative Medical decision making narrative: OrderSuspect patient's Toscano is obstructed due to blood clots. Was placed for Uro-Jet and placement of larger Toscano and irrigation if there is no free flow. If this does not alleviate the problem may have to place a three-way. Treatment and Re-Evaluation :: Nurse was able to place a 22 Latvian Toscano and irrigate. Latest red urine is presently draining. Bladder was scanned and there is no evidence of obstruction. Therefore, will discharge to home Discharge Plan Triage Chief Complaint: Toscano C/O ED Provider: Alfredo Lozada Dx/Rx/DC Orders Clinical Impression: Obstructed Toscano catheter, Hyperlipidemia, Anticoagulated on Coumadin, TRICIA (obstructive sleep apnea), Gross hematuria Instructions: ED Toscano Catheter, Care Prescriptions: No Action aspirin 81 MG tablet,chewable 81 mg PO DAILY@0800 atorvastatin 40 MG tablet 40 mg PO QHS cholecalciferol (vitamin D3) 50 MCG capsule 2,000 unit PO DAILY insulin glargine [Lantus U-100 Insulin] 100 unit/mL Solution 28 unit SUBCUT QHS acetaminophen [Tylenol Extra Strength] 500 mg Tablet 1,000 mg PO Q6H PRN (Reason: Pain) docusate sodium 100 mg Capsule 100 mg PO BID tamsulosin 0.4 mg Capsule 0.8 mg PO DAILY@1730 Qty: 0 0RF cephalexin HCl 500 mg Tablet 1,000 mg PO BID ferrous sulfate 325 mg (65 mg iron) Tablet 325 mg PO DAILY sertraline 50 mg Tablet 50 mg PO QHS finasteride 5 mg Tablet 5 mg PO DAILY polyethylene glycol Liquid 30 ml miscellaneous DAILY fondaparinux 7.5 mg/0.6 mL Syringe 7.5 mg SUBCUT QHS metoprolol succinate 25 mg tablet extended release 24 hr 50 mg PO DAILY melatonin 3 mg Tablet 3 mg PO QHS insulin aspart U-100 [Novolog U-100 Insulin aspart] 100 unit/mL Solution 14 unit subcut 1200,1700 insulin aspart U-100 [Novolog U-100 Insulin aspart] 100 unit/mL Solution 10 unit SUBCUT 0800 ondansetron 4 mg tablet,disintegrating 4 mg PO TID PRN (Reason: nausea and vomiting) Qty: 21 0RF [facility] [Primary Care Provider] - As Needed Disposition Disposition: Home, Self Care
[2022-09-04] MEDS: Lidocaine Jelly 2% 20 ML Syringe (URO-JET) 1 APPLIC TOPICAL (13:47)
== END 2022-09-04 14:43 | disposition home or self-care (01) ==
PROVIDERS: Emergency Provider Emergency Medicine; Visit Provider Emergency Medicine
DX: T83.091A Other mechanical complication of indwelling urethral catheter, initial encounter (principal); I11.0 Hypertensive heart disease with heart failure; I50.9 Heart failure, unspecified; E11.42 Type 2 diabetes mellitus with diabetic polyneuropathy; I48.91 Unspecified atrial fibrillation; Z79.4 Long term (current) use of insulin; E78.5 Hyperlipidemia, unspecified; G47.33 Obstructive sleep apnea (adult) (pediatric); R31.0 Gross hematuria; Z87.891 Personal history of nicotine dependence; Z86.718 Personal history of other venous thrombosis and embolism; Z86.711 Personal history of pulmonary embolism; Z95.1 Presence of aortocoronary bypass graft; Z79.82 Long term (current) use of aspirin; Z79.899 Other long term (current) drug therapy; Z79.01 Long term (current) use of anticoagulants; X58.XXXA Exposure to other specified factors, initial encounter
CPT/HCPCS: 51702; 99283

== ENCOUNTER 2022-10-16 12:02 | Emergency (ER) | payer OTHER, SELFPAY ==
[2022-10-16 12:04] VITALS: BP 120/77; PULSE 87; RESP 18; TEMP 36.4; O2SAT 93; BMI 29.2
--- NOTE | 2022-10-16 12:30 | EKG12_ITS ---
Test Reason : ABD PAIN Blood Pressure : / mmHG Vent. Rate : 071 BPM Atrial Rate : 071 BPM P-R Int : 170 ms QRS Dur : 080 ms QT Int : 408 ms P-R-T Axes : -07 012 091 degrees QTc Int : 443 ms Normal sinus rhythm Low voltage QRS Septal infarct , age undetermined Abnormal ECG Confirmed by DION RICE, YUMIKO ([id number]), editor magazine ELISABETH ANDERSON [id number]) on 10/18/2022 10:12:13 A M Referred By: Confirmed By:JOHN ASHLEY MD
--- NOTE | 2022-10-16 12:35 | EX.ED.DYSGE1 ---
HPI History of Present Illness Chief Complaint: Abd Pain Informant: patient, family and EMS Narrative Narrative: Patient presents by EMS after having epigastric discomfort and chest mid substernal discomfort only with swallowing including liquids, no discomfort right now. However daughter was checking vital signs at home including pulse oximetry which would occasionally drop down into the high 80s, and although the patient had no dyspnea, he was talking to one of the on-call nurses on the phone and told them when they asked that he did feel little short of breath. To me he states he had no true dyspnea, but at 1 point was breathing a little quickly, he is unsure if it was related to the discomfort or something else. History is limited from him since he has a history of vascular dementia according to the daughter. He is anticoagulated on fondaparinux due to recurrent strokes and TIAs in the past. 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 Sleep apnea Sleep apnea TIA (transient ischemic attack) Type 2 diabetes mellitus with diabetic polyneuropathy Home Medications aspirin 81 mg chewable tablet 81 mg PO DAILY@0800 06/23/20 [History Last Taken 12/04/20] atorvastatin 40 mg tablet 40 mg PO QHS 06/23/20 [History Last Taken 12/03/20] cholecalciferol (vitamin D3) 50 mcg (2,000 unit) capsule 2,000 unit PO DAILY 06/23/20 [History Last Taken 12/04/20] acetaminophen 500 mg tablet (Tylenol Extra Strength) 1,000 mg PO Q6H PRN Pain 11/16/20 [History Last Taken 12/04/20] insulin glargine 100 unit/mL subcutaneous solution (Lantus U-100 Insulin) 28 unit subcut QHS DM 11/16/20 [History Last Taken 12/03/20] docusate sodium 100 mg capsule 100 mg PO BID CONSTIPATION 12/04/20 [History Last Taken 12/04/20] tamsulosin 0.4 mg capsule 0.8 mg PO DAILY@1730 #0 caps 02/23/21 [Rx Last Taken Unknown] cephalexin HCl 500 mg tablet 1,000 mg PO BID 08/13/21 [History Last Taken Unknown] ferrous sulfate 325 mg (65 mg iron) tablet 325 mg PO DAILY 08/13/21 [History Last Taken Unknown] finasteride 5 mg tablet 5 mg PO DAILY 08/13/21 [History Last Taken Unknown] fondaparinux 7.5 mg/0.6 mL subcutaneous solution syringe 7.5 mg subcut QHS 08/13/21 [History Last Taken Unknown] metoprolol succinate 25 mg tablet,extended release 24 hr 50 mg PO DAILY 08/13/21 [History Last Taken Unknown] polyethylene glycol 30 ml miscellaneous DAILY 08/13/21 [History Last Taken Unknown] sertraline 50 mg tablet 50 mg PO QHS 08/13/21 [History Last Taken Unknown] insulin aspart U-100 100 unit/mL subcutaneous solution (Novolog U-100 Insulin aspart) 10 unit subcut 0800 01/20/22 [History Last Taken Unknown] insulin aspart U-100 100 unit/mL subcutaneous solution (Novolog U-100 Insulin aspart) 14 unit subcut 1200,1700 01/20/22 [History Last Taken Unknown] melatonin 3 mg tablet 3 mg PO QHS 01/20/22 [History Last Taken Unknown] ondansetron 4 mg disintegrating tablet 4 mg PO TID PRN nausea and vomiting #21 tabs 08/21/22 [Rx Last Taken Unknown] levofloxacin 750 mg tablet 750 mg PO DAILY 5 days #5 tabs 10/16/22 [Rx Last Taken Unknown] pantoprazole 40 mg tablet,delayed release 40 mg PO DAILY #30 tabs 10/16/22 [Rx Last Taken Unknown] Allergy/AdvReac Type Severity Reaction Status Date / Time No Known Allergies Allergy Verified 10/16/22 12:10 Family History Mother Diabetes Father COPD (chronic obstructive pulmonary disease) Surgical History History of spinal surgery Hx of CABG Social History household members: children Smoking Status: Never smoker alcohol intake: never substance use type: does not use ROS ROS ED Constitutional Constitutional ED: Denies chills or fever(s) Eyes Eyes: Denies change in vision or diplopia ENT ENT ED: Denies rhinorrhea or sore throat Cardiovascular Cardiovascular: Reports chest pain; Denies palpitations or racing heartbeat Respiratory/Chest Respiratory/Chest: Denies cough, dyspnea or dyspnea on exertion Gastrointestinal Gastrointestinal: Reports abdominal pain, nausea and other Details: Vomited this morning, brown but no blood or coffee-ground emesis, and vomited once 3 days ago. ; Denies diarrhea or melena Genitourinary Genitourinary ED: Reports other Details: Indwelling Toscano catheter for several months Musculoskeletal Musculoskeletal: Denies back pain or neck pain Integumentary Denies abscess or rash Neurologic Neurologic: Reports other Details: Confusion at baseline per daughter ; Denies headache(s), paresthesias or weakness Psychiatric Psychiatric: Denies anxiety or suicidal thoughts EXAM Physical Exam Const Vital Signs: 10/16/22 12:04 10/16/22 16:13 Temperature 97.6 F L Temperature Source Temporal Pulse Rate 87 86 Respiratory Rate 18 16 Blood Pressure 120/77 111/64 Blood Pressure Mean 91 79 Pulse Ox 93 94 Oxygen Delivery Method Room Air Room Air Positive well nourished and well developed General Appearance ED: well developed and NAD HEENT Reports moist mucous membranes normocephalic and atraumatic Eyes PERRL and EOMs intact bilaterally Neck full ROM, no lymphadenopathy and supple Resp normal respiratory effort and clear to auscultation bilaterally Cardio regular rate, regular rhythm and no murmurs GI non-tender and non-distended GI Narrative: Benign abdomen Auscultation: normoactive bowel sounds Palpation: soft Back/Spine no CVA tenderness General Back: other FROM Extremity normal to inspection General Extremety ED: Negative for edema, pulses abnormal or tenderness General Extremity: Negative for edema or pulses abnormal Neuro CN's II-XII intact bilaterally and no sensory deficits noted Neuro Narrative: At baseline per family Sensorium / Orientation: awake, alert and orientation impaired Motor Exam: strength 5/5 throughout Skin no rashes or lesions noted and no wounds MDM MDM MDM Narrative Medical decision making narrative: Patient is nausea is gone and has no pain as long as he is not eating, he states, so work-up was performed, the EKG troponin chest x-ray 2 views of mitral rotation all normal, radiology in agreement, labs show a leukocytosis of unknown etiology, but everything else looks good. I reevaluated him, and reexamined his abdomen, soft nontender throughout. I do not think he needs advanced imaging of his abdomen just because of this, especially since he is asymptomatic right now, but he does have an indwelling Toscano. The urine is orange and he suggest that they are putting Pyridium in him but he does not know why and his family ember stepped out at the time. I am sending for UA and culture and empirically treating him with a dose of Rocephin as well as pantoprazole. He does not have any significant lessening of his hemoglobin to suggest acute upper GI bleeding nor does it sound like that clinically. 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 He is planned for a TURP in about 2 weeks to hopefully get the indwelling Toscano out which was placed because of retention. He has been having a lot of spasms of the bladder so he is on Pyridium to try to help minimize that, making it difficult to interpret urinalysis here. Sent for culture and empirically given Rocephin as above, and on reevaluation he is doing well, not dyspneic nor has he been ever since he has been here, but coughing periodically. Daughter states he has a history of aspiration, but things seem to be better now, but it is always possible that he has aspirated. For the most part his pulse ox here is 90-95% on room air, the daughter states since she has been sitting at the bedside watching a pulse oximetry it has dipped down into the 80s but has been relatively brief, as it was at home. I do not think he needs to be admitted for that, he is not having a significant amount of back pain to suggest an increased infection there, but to address these symptoms along with a leukocytosis I think it would be reasonable to treat him empirically for the possibility of early aspiration pneumonitis. We will send him home on Levaquin and advised close outpatient follow-up, we discussed reasons to return and they are comfortable with that plan. History & Record Review Discussion w/independent historian: Patient and Family Additional record(s) reviewed:: Prior labs Lab Data Attestation: I reviewed the patient's lab results. Labs: Laboratory Results - last 24 hr 10/16/22 10/16/22 10/16/22 12:50 12:50 15:55 WBC 19.2 H RBC 4.21 L Hgb 12.0 L Hct 37.6 L MCV 89.3 MCH 28.5 MCHC 31.9 L RDW Std Deviation 45.4 H RDW Coeff of Fernando 14.1 Plt Count 305 MPV 9.3 Immature Gran % (Auto) 0.600 Neut % (Auto) 84.2 H Lymph % (Auto) 9.0 L [place] % (Auto) 5.1 Eos % (Auto) 0.7 Baso % (Auto) 0.4 Absolute Neuts (auto) 16.2 H Absolute Lymphs (auto) 1.73 Nucleated RBC % 0 Sodium 137 Potassium 4.1 Chloride 105 Carbon Dioxide 25.0 Anion Gap 7 BUN 26 H Creatinine 1.27 Estim Creat Clear Calc 50.26 Est GFR (MDRD) Af Amer 71 Est GFR (MDRD) Non-Af 59 L BUN/Creatinine Ratio 20.5 H Glucose 157 H Calcium 8.7 Total Bilirubin 0.40 AST 16 ALT 20 Alkaline Phosphatase 48 Troponin I High Sens 11 Total Protein 7.0 Albumin 3.1 L Globulin 3.9 Albumin/Globulin Ratio 0.8 L Lipase 42 Urine Color Yellow Urine Clarity Turbid Urine pH 5.0 Ur Specific [place] 1.020 Urine Protein 100 H Urine Glucose (UA) Normal Urine Ketones 5 H Urine Occult Blood 150 H Urine Nitrite Positive H Urine Bilirubin 1 H Urine Urobilinogen 1 H Ur Leukocyte Esterase 500 H Radiography Diagnostic Testing: Clinical Impression(s) from Imaging Studies Chest X-Ray 10/16/22 13:00 IMPRESSION: No acute abnormality is seen. Electronically Signed: Valente Beverly MD at 13:30 EDT , Rhythm Strip Rhythm Strip: Sinus Rhythm Rate: 75 Ectopy: None EKG Initial EKG: Attestation: I personally reviewed and interpreted this EKG as follows: Interpretation: Sinus Rhythm, No Acute Injury Pattern and Non-Specific ST Changes Prior EKG tracings: available for review Prior: Unchanged Discharge Plan Triage Chief Complaint: Abd Pain Other Complaint: Nausea/Vomiting ED Provider: Jono Boyer Dx/Rx/DC Orders Clinical Impression: Acute epigastric pain, Non-cardiac chest pain Instructions: ED Epigastric Pain Uncertain Cause Prescriptions: New pantoprazole 40 mg tablet,delayed release (DR/EC) 40 mg PO DAILY Qty: 30 0RF levofloxacin 750 mg tablet 750 mg PO DAILY 5 Days Qty: 5 0RF No Action aspirin 81 MG tablet,chewable 81 mg PO DAILY@0800 atorvastatin 40 MG tablet 40 mg PO QHS cholecalciferol (vitamin D3) 50 MCG capsule 2,000 unit PO DAILY insulin glargine [Lantus U-100 Insulin] 100 unit/mL Solution 28 unit SUBCUT QHS acetaminophen [Tylenol Extra Strength] 500 mg Tablet 1,000 mg PO Q6H PRN (Reason: Pain) docusate sodium 100 mg Capsule 100 mg PO BID tamsulosin 0.4 mg Capsule 0.8 mg PO DAILY@1730 Qty: 0 0RF cephalexin HCl 500 mg Tablet 1,000 mg PO BID ferrous sulfate 325 mg (65 mg iron) Tablet 325 mg PO DAILY sertraline 50 mg Tablet 50 mg PO QHS finasteride 5 mg Tablet 5 mg PO DAILY polyethylene glycol Liquid 30 ml miscellaneous DAILY fondaparinux 7.5 mg/0.6 mL Syringe 7.5 mg SUBCUT QHS metoprolol succinate 25 mg tablet extended release 24 hr 50 mg PO DAILY melatonin 3 mg Tablet 3 mg PO QHS insulin aspart U-100 [Novolog U-100 Insulin aspart] 100 unit/mL Solution 14 unit subcut 1200,1700 insulin aspart U-100 [Novolog U-100 Insulin aspart] 100 unit/mL Solution 10 unit SUBCUT 0800 ondansetron 4 mg tablet,disintegrating 4 mg PO TID PRN (Reason: nausea and vomiting) Qty: 21 0RF [facility] Provider[facility] - 3-5 Days Disposition Disposition: Home, Self Care
--- NOTE | 2022-10-16 13:00 | RAD_ITS ---
STUDY: X-RAY CHEST REASON FOR EXAM: Male, 77 years old. Chest pain, sob TECHNIQUE: AP and lateral views of the chest. COMPARISON: Comparison is made with prior study dated August 12, 2022. FINDINGS: EKG electrodes are seen. The lungs are clear and expanded. There is no demonstrated pleural abnormality. Sternal cerclage wires are present from a prior sternotomy. Normal mediastinum and ibeth. Normal visualized pulmonary arteries. Normal visualized aortic arch and descending thoracic aorta. Prior anterior yayr fixation of the thoracic spine. Normal visualized ribs, clavicles, and shoulders. There is no demonstrated abnormality of the visualized soft tissue structures of the upper abdomen. RAD/Chest PA and Lateral IMPRESSION: No acute abnormality is seen. Electronically Signed: Valente Beverly MD at 13:30 EDT ,
[2022-10-16 13:01] LABS: Absolute Lymphocyte Count 1.73 X10^3/uL (0.83-4.51); Absolute Neutrophil Count 16.2 X10^3/uL (2.0-7.7); Basophil# 0.07 X10^3/uL; Basophil% 0.4 % (0-1); Eosinophil# 0.13 X10^3/uL; Eosinophils% 0.7 % (0-5); Hematocrit 37.6 % (40-54); Lymphocyte # 1.73 X10^3/ul (0.83-4.51); Mean Corp Hgb Conc 31.9 g/dL (32-36); Mean Corpuscular Hgb 28.5 pg (27.0-32.0); Mean Corpuscular Volume 89.3 fL (80-94); Mean Platelet Vol. 9.3 fl (6.2-12.0); Monocyte# 0.97 X10^3/uL; Monocyte% 5.1 % (0-10); NRBC Flagged by Analyzer 0 % (0-5); Neutrophil # 16.19 X10^3/uL (2.7-7.7); Neutrophil % 84.2 % (47-70); Platelet Count 305 K/mm3 (150-450); RBC Distribution Width CV 14.1 % (11.6-14.6); RBC Distribution Width SD 45.4 fl (35.1-43.9); Red Blood Count 4.21 M/mm3 (4.6-6.2); White Blood Count 19.2 K/mm3 (4.4-11.0)
[2022-10-16 13:14] LABS: ALB/GLOB Ratio 0.8 RATIO (0.9-2.4); AST(SGOT) 16 U/L (15-37); Alanine Aminotransfer ALT/SGPT 20 U/L (16-61); Albumin, Serum 3.1 g/dL (3.2-5.0); Alkaline Phosphatase 48 U/L (45-117); Anion Gap 7 (5-15); BUN 26 mg/dL (7-18); BUN/Creat Ratio 20.5 RATIO (10-20); Calcium,Total 8.7 mg/dL (8.5-10.1); Chloride 105 mmol/L (98-107); Creatinine, Serum 1.27 mg/dL (0.70-1.30); EST Glomerular Filtration Rate 59 mL/min (>60); Est Glom Filt Rate - Afr Amer 71 mL/min (>60); Estimated Creatinine Clearance 50.26 ml/min; Globulin 3.9 g/dL (2.2-4.2); Glucose 157 mg/dL (74-106); Lipase 42 U/L (13-75); Potassium 4.1 mmol/L (3.5-5.1); Sodium Level 137 mmol/L (136-145); Troponin-I HS 11 pg/mL (3.0-78.0)
[2022-10-16 16:03] LABS: Mucous, Urine 0 SEEN /hpf (<or=2+); Red Blood Cells-Urine 0 SEEN /hpf (0-5)
[2022-10-16] MEDS: Ceftriaxone 1 GM/50 ML BAG IV (16:11)
[2022-10-16 16:13] VITALS: BP 111/64; PULSE 86; RESP 16; O2SAT 94
[2022-10-16 16:21] LABS: Color, Urine Yellow (Yellow); Glucose, Dipstick Normal (Normal); Ketone-Dipstick 5 mg/dl (Negative); Leukocyte Esterase-Dipstick 500 /ul (Negative); Nitrite-Dipstick Positive (Negative); Occult Blood-Urine 150 /ul (Negative); Protein-Dipstick 100 mg/dl (Negative); Urine Clarity Turbid (Clear); Urine Urobilinogen 1 mg/dl (Normal)
[2022-10-16 16:34] LABS: Urine Bilirubin Dipstick 1 mg/dL (Negative)
[2022-10-16] MEDS: Pantoprazole Sodium 40 MG Tablet PO (16:44)
[2022-10-16 16:49] LABS: Bacteria 1+ /hpf (None Seen); Squamous Epithelial Cells - UA 0-5 SEEN /hpf (0-5); White Blood Cells >100 SEEN /hpf (0-5); Yeast-Urine RARE /hpf (None Seen)
[2022-10-16 17:00] VITALS: BP 133/74; PULSE 90; RESP 16; O2SAT 94
== END 2022-10-16 17:02 | disposition home or self-care (01) ==
PROVIDERS: Emergency Provider Emergency Medicine; Visit Provider Emergency Medicine
DX: R10.13 Epigastric pain (principal); I11.0 Hypertensive heart disease with heart failure; I50.9 Heart failure, unspecified; E11.42 Type 2 diabetes mellitus with diabetic polyneuropathy; Z79.4 Long term (current) use of insulin; R07.89 Other chest pain; Z95.1 Presence of aortocoronary bypass graft; Z79.82 Long term (current) use of aspirin; Z79.899 Other long term (current) drug therapy; Z86.73 Personal history of transient ischemic attack (TIA), and cerebral infarction without residual deficits
CPT/HCPCS: 71046; 80053; 81001; 83690; 84484; 85025; 87077; 87086; 87088; 87186; 93005; 96365; 99285; J7050; A4216

== ENCOUNTER 2022-11-11 09:46 | Emergency (ER) | payer OTHER, SELFPAY ==
[2022-11-11 09:48] VITALS: BP 109/97; PULSE 77; RESP 18; TEMP 36.6; O2SAT 97
[2022-11-11 09:58] VITALS: BMI 29.9
--- NOTE | 2022-11-11 10:36 | EX.ED.GUMALE ---
HPI <Dr. Jono Boyer MD - Last Filed: 11/13/22 16:47> History of Present Illness Chief Complaint: Complaint Informant: patient and family Narrative Narrative: Patient had a TURP about 2 weeks ago, and they diagnosed him with a neurogenic bladder at the same time. He has had a catheter, they were not able to take it out because he did not pass some bedside tests when he saw urology, he sees specialist at the [facility]. He has been having some hematuria for the past 3 days, now this morning there is blood in the bag, no urine, and it does not seem to be anything coming out. The family member tried to flush it with 30 cc of fluid, it went in but it will not come out and the patient had discomfort. There are blood clots around the catheter, in the catheter, and he soaked his diaper with urine from around the catheter. No other symptoms. Daughter states he is on fondaparinux because of multiple TIA/CVAs and some vascular dementia. PFSH <Dr. 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 Sleep apnea Sleep apnea TIA (transient ischemic attack) Type 2 diabetes mellitus with diabetic polyneuropathy Home Medications aspirin 81 mg chewable tablet 81 mg PO DAILY@0800 06/23/20 [History Last Taken 12/04/20] atorvastatin 40 mg tablet 40 mg PO QHS 06/23/20 [History Last Taken 12/03/20] cholecalciferol (vitamin D3) 50 mcg (2,000 unit) capsule 2,000 unit PO DAILY 06/23/20 [History Last Taken 12/04/20] acetaminophen 500 mg tablet (Tylenol Extra Strength) 1,000 mg PO Q6H PRN Pain 11/16/20 [History Last Taken 12/04/20] insulin glargine 100 unit/mL subcutaneous solution (Lantus U-100 Insulin) 32 unit subcut QHS DM 11/16/20 [History Last Taken 12/03/20] docusate sodium 100 mg capsule 100 mg PO BID CONSTIPATION 12/04/20 [History Last Taken 12/04/20] tamsulosin 0.4 mg capsule 0.8 mg (2 x 0.4 mg) PO DAILY@1730 #0 caps 02/23/21 [Rx Last Taken Unknown] cephalexin HCl 500 mg tablet 1,000 mg PO BID 08/13/21 [History Last Taken Unknown] ferrous sulfate 325 mg (65 mg iron) tablet 325 mg PO DAILY 08/13/21 [History Last Taken Unknown] finasteride 5 mg tablet 5 mg PO DAILY 08/13/21 [History Last Taken Unknown] fondaparinux 7.5 mg/0.6 mL subcutaneous solution syringe 7.5 mg subcut QHS 08/13/21 [History Last Taken Unknown] metoprolol succinate 25 mg tablet,extended release 24 hr 50 mg PO DAILY 08/13/21 [History Last Taken Unknown] polyethylene glycol 30 ml miscellaneous DAILY 08/13/21 [History Last Taken Unknown] sertraline 50 mg tablet 200 mg PO QHS 08/13/21 [History Last Taken Unknown] insulin aspart U-100 100 unit/mL subcutaneous solution (Novolog U-100 Insulin aspart) 12 unit subcut 0800 01/20/22 [History Last Taken Unknown] insulin aspart U-100 100 unit/mL subcutaneous solution (Novolog U-100 Insulin aspart) 14 unit subcut 1200,1700 01/20/22 [History Last Taken Unknown] melatonin 3 mg tablet 3 mg PO QHS 01/20/22 [History Last Taken Unknown] ondansetron 4 mg disintegrating tablet 4 mg PO TID PRN nausea and vomiting #21 tabs 08/21/22 [Rx Last Taken Unknown] levofloxacin 750 mg tablet 750 mg PO DAILY 5 days #5 tabs 10/16/22 [Rx Last Taken Unknown] pantoprazole 40 mg tablet,delayed release 40 mg PO DAILY #30 tabs 10/16/22 [Rx Last Taken Unknown] cyanocobalamin (vitamin B-12) 1,000 mcg capsule 1,000 mcg PO DAILY 11/11/22 [History Last Taken Unknown] trospium 20 mg tablet 20 mg PO BID 11/11/22 [History Last Taken Unknown] Allergy/AdvReac Type Severity Reaction Status Date / Time No Known Allergies Allergy Verified 11/11/22 09:50 Family History Mother Diabetes Father COPD (chronic obstructive pulmonary disease) Surgical History History of spinal surgery Hx of CABG Social History household members: children Smoking Status: Never smoker alcohol intake: never substance use type: does not use ROS <Dr. Jono Boyer MD - Last Filed: 11/13/22 16:47> ROS ED Constitutional Constitutional ED: Denies chills or fever(s) Genitourinary Genitourinary ED: Reports as per HPI, hematuria and other Details: Urinary retention see HPI Hematologic/Lymphatic Hematologic/Lymphatic: Reports easy bleeding and easy bruising EXAM <Dr. Jono Boyer MD - Last Filed: 11/13/22 16:47> Physical Exam Const Vital Signs: 11/11/22 09:48 11/11/22 12:10 11/11/22 16:15 Temperature 97.9 F Temperature Source Temporal Pulse Rate 77 66 78 Respiratory Rate 18 16 16 Blood Pressure 109/97 H 147/63 H 122/59 H Blood Pressure Mean 101 91 80 Pulse Ox 97 95 93 Oxygen Delivery Method Room Air Room Air Room Air 11/11/22 19:44 Temperature Temperature Source Pulse Rate 66 Respiratory Rate Blood Pressure 113/83 H Blood Pressure Mean 93 Pulse Ox 97 Oxygen Delivery Method Room Air Positive well nourished and well developed General Appearance ED: well developed and NAD HEENT Reports moist mucous membranes GI non-tender and non-distended Narrative: Toscano in place there is a small clot in the catheter, there is a small blood clot at the urethral meatus right next to the catheter, and no urine flow in the catheter. No testicular tenderness no hernias, penis otherwise normal. There is small amount of dark blood in the catheter bag. Neuro CN's II-XII intact bilaterally and moves all extremities Skin Lesions: no lesions Rashes: no rashes <Dr. Carrington Inman DO - Last Filed: 11/11/22 19:57> Physical Exam Const Vital Signs: 11/11/22 09:48 11/11/22 12:10 11/11/22 16:15 Temperature 97.9 F Temperature Source Temporal Pulse Rate 77 66 78 Respiratory Rate 18 16 16 Blood Pressure 109/97 H 147/63 H 122/59 H Blood Pressure Mean 101 91 80 Pulse Ox 97 95 93 Oxygen Delivery Method Room Air Room Air Room Air 11/11/22 19:44 Temperature Temperature Source Pulse Rate 66 Respiratory Rate Blood Pressure 113/83 H Blood Pressure Mean 93 Pulse Ox 97 Oxygen Delivery Method Room Air MDM <Dr. Jono Boyer MD - Last Filed: 11/13/22 16:47> [facility] MDM Narrative Medical decision making narrative: I had nursing place a 22 F triple-lumen Toscano after pretreated with Uro-Jet, we were able to obtain clots and blood, and irrigate him although initially it was painful, then we had difficulty getting irrigant out, I had nursing replaced the catheter with a 24 F triple-lumen Toscano, there was a large clot at the end of the 22, and we had more success irrigating, still bloody and lots of clots coming out. After 5 or 6 hours of this, I recommend admitting him to the hospital. He is amenable. He is feeling less uncomfortable now that we got lots of clots out. Discussed with Dr. Pizarro with urology, not this patient's urologist so [facility], that is pending at this time. He is okay consulting on this patient for CBI overnight if we are unable to get the [facility]. History & Record Review Discussion w/independent historian: Patient and Family Additional record(s) reviewed:: Prior outpatient record Lab Data Attestation: I reviewed the patient's lab results. Labs: Laboratory Results - last 24 hr 11/11/22 11/11/22 10:50 16:58 WBC 15.0 H RBC 3.49 L Hgb 9.7 L Hct 31.1 L MCV 89.1 MCH 27.8 MCHC 31.2 L RDW Std Deviation 45.1 H RDW Coeff of Fernando 14.0 Plt Count 333 MPV 9.4 Immature Gran % (Auto) 0.500 Neut % (Auto) 77.3 H Lymph % (Auto) 13.9 L Dougherty % (Auto) 6.0 Eos % (Auto) 1.8 Baso % (Auto) 0.5 Absolute Neuts (auto) 11.6 H Absolute Lymphs (auto) 2.08 Nucleated RBC % 0 Sodium 139 Potassium 4.1 Chloride 112 H Carbon Dioxide 22.0 Anion Gap 5 BUN 17 Creatinine 1.02 Estim Creat Clear Calc 56.47 Est GFR (MDRD) Af Amer 91 Est GFR (MDRD) Non-Af 76 BUN/Creatinine Ratio 16.7 Glucose 156 H Calcium 8.4 L Urine Color Red Urine Clarity Cloudy Urine pH 6.5 Ur Specific Kipling 1.015 Urine Protein 500 H Urine Glucose (UA) Normal Urine Ketones 15 H Urine Occult Blood 250 H Urine Nitrite Negative Urine Bilirubin 1 H Urine Urobilinogen Normal Ur Leukocyte Esterase 100 H Urine RBC > 100 SEEN Urine WBC >100 SEEN Ur Squamous Epith Cells 0 SEEN Ur Transition Epith Cell > 100 SEEN Ur Renal Epithelial Cell > 100 SEEN Urine Bacteria 0 SEEN Urine Mucus 0 SEEN Management Discussion w/another healthcare provider: Hospitalist and [employer] ([facility]) <Dr. Carrington Inman, DO - Last Filed: 11/11/22 19:57> [facility] MDM Narrative Medical decision making narrative: I had nursing place a 22 F triple-lumen Toscano after pretreated with Uro-Jet, we were able to obtain clots and blood, and irrigate him although initially it was painful, then we had difficulty getting irrigant out, I had nursing replaced the catheter with a 24 F triple-lumen Toscano, there was a large clot at the end of the 22, and we had more success irrigating, still bloody and lots of clots coming out. After 5 or 6 hours of this, I recommend admitting him to the hospital. He is amenable. He is feeling less uncomfortable now that we got lots of clots out. Discussed with Dr. Pizarro with urology, not this patient's urologist so [facility], that is pending at this time. He is okay consulting on this patient for CBI overnight if we are unable to get the [facility]. Dr. Inman dictating: Patient signed out to me pending transfer versus admission here to [facility]. It was unclear initially if he would be transferred however [facility] and he was excepted and is pending transfer at this time. Lab Data Labs: Laboratory Results - last 24 hr 11/11/22 11/11/22 10:50 16:58 WBC 15.0 H RBC 3.49 L Hgb 9.7 L Hct 31.1 L MCV 89.1 MCH 27.8 MCHC 31.2 L RDW Std Deviation 45.1 H RDW Coeff of Fernando 14.0 Plt Count 333 MPV 9.4 Immature Gran % (Auto) 0.500 Neut % (Auto) 77.3 H Lymph % (Auto) 13.9 L Dougherty % (Auto) 6.0 Eos % (Auto) 1.8 Baso % (Auto) 0.5 Absolute Neuts (auto) 11.6 H Absolute Lymphs (auto) 2.08 Nucleated RBC % 0 Sodium 139 Potassium 4.1 Chloride 112 H Carbon Dioxide 22.0 Anion Gap 5 BUN 17 Creatinine 1.02 Estim Creat Clear Calc 56.47 Est GFR (MDRD) Af Amer 91 Est GFR (MDRD) Non-Af 76 BUN/Creatinine Ratio 16.7 Glucose 156 H Calcium 8.4 L Urine Color Red Urine Clarity Cloudy Urine pH 6.5 Ur Specific Kipling 1.015 Urine Protein 500 H Urine Glucose (UA) Normal Urine Ketones 15 H Urine Occult Blood 250 H Urine Nitrite Negative Urine Bilirubin 1 H Urine Urobilinogen Normal Ur Leukocyte Esterase 100 H Urine RBC > 100 SEEN Urine WBC >100 SEEN Ur Squamous Epith Cells 0 SEEN Ur Transition Epith Cell > 100 SEEN Ur Renal Epithelial Cell > 100 SEEN Urine Bacteria 0 SEEN Urine Mucus 0 SEEN Discharge Plan Triage Chief Complaint: Complaint ED Provider: Jono Boyer Dx/Rx/DC Orders Clinical Impression: Anticoagulated, Hematuria, Acute urinary retention Prescriptions: No Action aspirin 81 MG tablet,chewable 81 mg PO DAILY@0800 atorvastatin 40 MG tablet 40 mg PO QHS cholecalciferol (vitamin D3) 50 MCG capsule 2,000 unit PO DAILY insulin glargine [Lantus U-100 Insulin] 100 unit/mL Solution 32 unit SUBCUT QHS acetaminophen [Tylenol Extra Strength] 500 mg Tablet 1,000 mg PO Q6H PRN (Reason: Pain) docusate sodium 100 mg Capsule 100 mg PO BID tamsulosin 0.4 mg Capsule 0.8 mg PO DAILY@1730 Qty: 0 0RF cephalexin HCl 500 mg Tablet 1,000 mg PO BID ferrous sulfate 325 mg (65 mg iron) Tablet 325 mg PO DAILY sertraline 50 mg Tablet 200 mg PO QHS finasteride 5 mg Tablet 5 mg PO DAILY polyethylene glycol Liquid 30 ml miscellaneous DAILY fondaparinux 7.5 mg/0.6 mL Syringe 7.5 mg SUBCUT QHS metoprolol succinate 25 mg tablet extended release 24 hr 50 mg PO DAILY melatonin 3 mg Tablet 3 mg PO QHS insulin aspart U-100 [Novolog U-100 Insulin aspart] 100 unit/mL Solution 14 unit subcut 1200,1700 insulin aspart U-100 [Novolog U-100 Insulin aspart] 100 unit/mL Solution 12 unit SUBCUT 0800 ondansetron 4 mg tablet,disintegrating 4 mg PO TID PRN (Reason: nausea and vomiting) Qty: 21 0RF pantoprazole 40 mg tablet,delayed release (DR/EC) 40 mg PO DAILY Qty: 30 0RF levofloxacin 750 mg tablet 750 mg PO DAILY 5 Days Qty: 5 0RF trospium 20 mg tablet 20 mg PO BID Rx Instructions: administer on an empty stomach cyanocobalamin (vitamin B-12) 1,000 mcg capsule 1,000 mcg PO DAILY [facility] [Primary Care Provider] - Disposition Disposition: Acute Care Hospital Discharge Location: [facility] Discharge Date/Time: 11/11/22 23:32
[2022-11-11 11:07] LABS: Bacteria 0 SEEN /hpf (None Seen); Mucous, Urine 0 SEEN /hpf (<or=2+); Squamous Epithelial Cells - UA 0 SEEN /hpf (0-5)
[2022-11-11 11:10] LABS: Color, Urine Red (Yellow); Glucose, Dipstick Normal (Normal); Ketone-Dipstick 15 mg/dl (Negative); Leukocyte Esterase-Dipstick 100 /ul (Negative); Nitrite-Dipstick Negative (Negative); Occult Blood-Urine 250 /ul (Negative); Protein-Dipstick 500 mg/dl (Negative); Specific Gravity, Urine 1.015 (1.002-1.030); Urine Clarity Cloudy (Clear); Urine Urobilinogen Normal (Normal); Urine pH 6.5 (5.0 - 8.0)
[2022-11-11 11:12] LABS: Urine Bilirubin Dipstick 1 mg/dL (Negative)
[2022-11-11 11:38] LABS: Red Blood Cells-Urine > 100 SEEN /hpf (0-5)
[2022-11-11 11:40] LABS: Renal Epithelial Cells > 100 SEEN /hpf (0-5); Transitional Epithelial - Ur > 100 SEEN /hpf (0-5); White Blood Cells >100 SEEN /hpf (0-5)
[2022-11-11 12:10] VITALS: BP 147/63; PULSE 66; RESP 16; O2SAT 95
[2022-11-11 16:15] VITALS: BP 122/59; PULSE 78; RESP 16; O2SAT 93
[2022-11-11 17:13] LABS: Absolute Lymphocyte Count 2.08 X10^3/uL (0.83-4.51); Absolute Neutrophil Count 11.6 X10^3/uL (2.0-7.7); Basophil# 0.07 X10^3/uL; Basophil% 0.5 % (0-1); Eosinophil# 0.27 X10^3/uL; Eosinophils% 1.8 % (0-5); Hematocrit 31.1 % (40-54); Hemoglobin 9.7 g/dL (13.0-16.5); Lymphocyte # 2.08 X10^3/ul (0.83-4.51); Lymphocyte % 13.9 % (19-41); Mean Corp Hgb Conc 31.2 g/dL (32-36); Mean Corpuscular Hgb 27.8 pg (27.0-32.0); Mean Corpuscular Volume 89.1 fL (80-94); Mean Platelet Vol. 9.4 fl (6.2-12.0); Monocyte# 0.89 X10^3/uL; NRBC Flagged by Analyzer 0 % (0-5); Neutrophil # 11.57 X10^3/uL (2.7-7.7); Neutrophil % 77.3 % (47-70); Platelet Count 333 K/mm3 (150-450); RBC Distribution Width SD 45.1 fl (35.1-43.9); Red Blood Count 3.49 M/mm3 (4.6-6.2)
--- NOTE | 2022-11-11 17:36 | NURSING ---
CALLED [facility], TALKED TO JANELLE. SHE TOOK INFO AND SAID TO EXPECT VANI (MALE) TO CALL BACK.
[2022-11-11 17:40] LABS: Anion Gap 5 (5-15); BUN 17 mg/dL (7-18); BUN/Creat Ratio 16.7 RATIO (10-20); Calcium,Total 8.4 mg/dL (8.5-10.1); Chloride 112 mmol/L (98-107); Creatinine, Serum 1.02 mg/dL (0.70-1.30); EST Glomerular Filtration Rate 76 mL/min (>60); Est Glom Filt Rate - Afr Amer 91 mL/min (>60); Estimated Creatinine Clearance 56.47 ml/min; Glucose 156 mg/dL (74-106); Potassium 4.1 mmol/L (3.5-5.1); Sodium Level 139 mmol/L (136-145)
--- NOTE | 2022-11-11 18:10 | NURSING ---
1042 FAXED CHART TO [facility]
--- NOTE | 2022-11-11 18:11 | NURSING ---
TALKED TO SARAH LUDWIG, HE REQUESTED A COVID TEST
[2022-11-11 19:44] VITALS: BP 113/83; PULSE 66; O2SAT 97
[2022-11-11 21:41] VITALS: BP 105/74; PULSE 71; O2SAT 94
--- NOTE | 2022-11-11 21:53 | ED.RN ---
CALLED PHYSICIANS FOR UPDATED ETA, GIVEN ANOTHER 2 HOURS MOVING ETA TO 0000. THIS RELATIONSHIP ADVISOR ASKED FOR OUTSOURCE. PHYSICIANS TO CALL BACK. (ORIGINALLY CALLED FOR [facility] AT 1900, 2/3 HR ETA)
== END 2022-11-11 23:32 | disposition short-term general hospital (02) ==
PROVIDERS: Emergency Provider Emergency Medicine; Visit Provider Emergency Medicine
DX: R31.9 Hematuria, unspecified (principal); F01.50 Vascular dementia, unspecified severity, without behavioral disturbance, psychotic disturbance, mood disturbance, and anxiety; I11.0 Hypertensive heart disease with heart failure; I50.9 Heart failure, unspecified; E11.42 Type 2 diabetes mellitus with diabetic polyneuropathy; I48.91 Unspecified atrial fibrillation; Z79.4 Long term (current) use of insulin; R33.9 Retention of urine, unspecified; G47.30 Sleep apnea, unspecified; Z79.82 Long term (current) use of aspirin; Z79.899 Other long term (current) drug therapy; Z86.73 Personal history of transient ischemic attack (TIA), and cerebral infarction without residual deficits; Z86.718 Personal history of other venous thrombosis and embolism; Z79.01 Long term (current) use of anticoagulants
CPT/HCPCS: 51702; 80048; 81001; 85025; 87086; 87088; 87811; 99284; A4216

== ENCOUNTER 2022-11-16 07:15 | Emergency (ER) | payer OTHER, SELFPAY ==
[2022-11-16] VITALS (8 sets, daily range): BP systolic 92–118; BP diastolic 50–70; PULSE 76–107; RESP 14–18; TEMP 36.2; O2SAT 93–97; BMI 27.2
--- NOTE | 2022-11-16 07:32 | EDS_ITS ---
HPI History of Present Illness Chief Complaint: Complaint Narrative Narrative: 77-year male past medical history of TURP around 3 weeks ago at the [facility], had a Toscano catheter in place. Reportedly they were unable to remove it. He had problems with urinary retention and bleeding in his Toscano catheter when he presented to the emergency department approximately 5 days ago. His daughter who is his caregiver and [employer] states that he was here on Friday and got transferred up to the [facility]. They tried to do Toscano traction and constant bladder irrigation after three-way catheter had been inserted/exchanged on Friday and he had continuous bleeding. She states that he dropped his hemoglobin down to 6 and needed a blood transfusion. He was released from the [facility] yesterday, and they had removed his Toscano catheter stating that he was no longer retaining. Patient complains of suprapubic discomfort and passing small clots in his urine. He has discomfort and thinks he may be in urinary retention again. They do state that he is on fondaparinux as an anticoagulant. 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 Sleep apnea Sleep apnea TIA (transient ischemic attack) Type 2 diabetes mellitus with diabetic polyneuropathy Home Medications aspirin 81 mg chewable tablet 81 mg PO DAILY@0800 06/23/20 [History Last Taken 12/04/20] atorvastatin 40 mg tablet 40 mg PO QHS 06/23/20 [History Last Taken 12/03/20] cholecalciferol (vitamin D3) 50 mcg (2,000 unit) capsule 2,000 unit PO DAILY 06/23/20 [History Last Taken 12/04/20] acetaminophen 500 mg tablet (Tylenol Extra Strength) 1,000 mg PO Q6H PRN Pain 11/16/20 [History Last Taken 12/04/20] insulin glargine 100 unit/mL subcutaneous solution (Lantus U-100 Insulin) 32 unit subcut QHS DM 11/16/20 [History Last Taken 12/03/20] docusate sodium 100 mg capsule 100 mg PO BID CONSTIPATION 12/04/20 [History Last Taken 12/04/20] tamsulosin 0.4 mg capsule 0.8 mg (2 x 0.4 mg) PO DAILY@1730 #0 caps 02/23/21 [Rx Last Taken Unknown] cephalexin HCl 500 mg tablet 1,000 mg PO BID 08/13/21 [History Last Taken Unknown] ferrous sulfate 325 mg (65 mg iron) tablet 325 mg PO DAILY 08/13/21 [History Last Taken Unknown] finasteride 5 mg tablet 5 mg PO DAILY 08/13/21 [History Last Taken Unknown] fondaparinux 7.5 mg/0.6 mL subcutaneous solution syringe 7.5 mg subcut QHS 08/13/21 [History Last Taken Unknown] metoprolol succinate 25 mg tablet,extended release 24 hr 50 mg PO DAILY 08/13/21 [History Last Taken Unknown] polyethylene glycol 30 ml miscellaneous DAILY 08/13/21 [History Last Taken Unknown] sertraline 50 mg tablet 200 mg PO QHS 08/13/21 [History Last Taken Unknown] insulin aspart U-100 100 unit/mL subcutaneous solution (Novolog U-100 Insulin aspart) 12 unit subcut 0800 01/20/22 [History Last Taken Unknown] insulin aspart U-100 100 unit/mL subcutaneous solution (Novolog U-100 Insulin aspart) 14 unit subcut 1200,1700 01/20/22 [History Last Taken Unknown] melatonin 3 mg tablet 3 mg PO QHS 01/20/22 [History Last Taken Unknown] ondansetron 4 mg disintegrating tablet 4 mg PO TID PRN nausea and vomiting #21 tabs 08/21/22 [Rx Last Taken Unknown] levofloxacin 750 mg tablet 750 mg PO DAILY 5 days #5 tabs 10/16/22 [Rx Last Taken Unknown] pantoprazole 40 mg tablet,delayed release 40 mg PO DAILY #30 tabs 10/16/22 [Rx Last Taken Unknown] cyanocobalamin (vitamin B-12) 1,000 mcg capsule 1,000 mcg PO DAILY 11/11/22 [History Last Taken Unknown] trospium 20 mg tablet 20 mg PO BID 11/11/22 [History Last Taken Unknown] Allergy/AdvReac Type Severity Reaction Status Date / Time No Known Allergies Allergy Verified 11/16/22 07:19 Family History Mother Diabetes Father COPD (chronic obstructive pulmonary disease) Surgical History History of spinal surgery Hx of CABG Social History household members: children Smoking Status: Never smoker alcohol intake: never substance use type: does not use ROS ROS ED ROS Narrative Constitutional: No fever, no chills. HEENT: No sore throat. No neck pain. No loss of vision. No rhinorrhea. Cardiovascular: No chest pain. No palpitations. No pedal edema. Respiratory: No cough, no shortness of breath. Abdominal: Suprapubic abdominal pain. No nausea. No vomiting. Genitourinary: Positive dysuria, urinary retention. Positive hematuria. Musculoskeletal: No myalgias. No arthralgias. Neurologic: No headaches. No dizziness. No lightheadedness. Skin: No rash. No change in color. Psychiatric: No depression. No anxiety. EXAM Physical Exam Narrative Exam Narrative: Afebrile. Vital signs noted. HEENT: Normocephalic. Atraumatic. PERRL, EOMI. Neck soft and supple. No point tenderness or step off. Cardiovascular: Regular rate and rhythm. No murmurs, rubs, or gallops appreciated. Respiratory: No tachypnea. Lungs clear to auscultation bilaterally. Gastrointestinal: Abdomen soft, nontender, with normoactive bowel sounds. No rebound or guarding. Genitourinary: Small amount of dried blood on undergarment, no active bleeding noted from meatus of penis. Positive urethral irritation noted. Neurological: Awake. Alert. Nonfocal, nonlateralizing. Skin: No rash. Normal color. No pallor. Musculoskeletal: No pedal edema. Full range of motion extremities. Const Vital Signs: 11/16/22 07:17 11/16/22 15:23 Temperature 97.2 F L Temperature Source Temporal Pulse Rate 85 79 Respiratory Rate 14 16 Blood Pressure 102/55 L 98/63 Blood Pressure Mean 70 74 Pulse Ox 96 95 Oxygen Delivery Method Room Air Room Air MDM MDM MDM Narrative Medical decision making narrative: I reviewed the patient's prior record. He did have his Toscano catheter exchanged to a three-way first with a 22 then with a 24. He currently has no catheter in place and is feeling discomfort. Daughter states he has history of a small bladder with thickened wall and a neurogenic bladder. Bladder scan will be performed as he states he is still passing urine. If need be, three-way catheter will be placed for bladder irrigation again. As a states that he has had problems with dropping his hemoglobin requiring blood transfusion I will check a CBC. I will also order a BMP to check his kidney function. I reviewed the patient's laboratory work and he has slightly elevated white count of 13.5 which I think is nonspecific, hemoglobin stable at 8.8. I do not feel he requires emergent blood transfusion. Platelet count normal at 364. He has a sodium of 135 and a potassium of 4.3. BUN slightly elevated at 19 with creatinine of 1.35, but he has history of chronic kidney injury. Glucose is elevated at 237, but he has a normal anion gap of 6. I am not concerned about diabetic ketoacidosis with a normal anion gap. At this point in time, after bladder scan, three-way Toscano was inserted and he was started on constant bladder irrigation. He complained of bladder spasming, but ONB suppositories are not available. Instead he was administered morphine intravenously. As he has been on constant bladder irrigation, and he is still having red-colored irrigation out of his Toscano, I do feel that he requires readmission. He was just discharged from the [facility]. Additionally, urology is not available here at [facility] this weekend. He is in the middle of trying to be transferred back up to [facility]. He will be signed out to the [facility] physician, Dr. Travon Phillips to make final disposition which I anticipate his transfer. Patient is in stable condition. History & Record Review Discussion w/independent historian: Patient and Family Additional record(s) reviewed:: Prior ED visit and Prior labs Lab Data Attestation: I reviewed the patient's lab results. Labs: Laboratory Results - last 24 hr 11/16/22 07:54 WBC 13.5 H RBC 3.12 L Hgb 8.8 L Hct 27.1 L MCV 86.9 MCH 28.2 MCHC 32.5 RDW Std Deviation 46.2 H RDW Coeff of Fernando 14.8 H Plt Count 364 MPV 9.2 Immature Gran % (Auto) 0.500 Neut % (Auto) 71.6 H Lymph % (Auto) 19.1 Borden % (Auto) 7.0 Eos % (Auto) 1.4 Baso % (Auto) 0.4 Absolute Neuts (auto) 9.7 H Absolute Lymphs (auto) 2.57 Nucleated RBC % 0 Sodium 135 L Potassium 4.3 Chloride 106 Carbon Dioxide 23.0 Anion Gap 6 BUN 19 H Creatinine 1.35 H Estim Creat Clear Calc 48.82 Est GFR (MDRD) Af Amer 66 Est GFR (MDRD) Non-Af 55 L BUN/Creatinine Ratio 14.1 Glucose 237 H Calcium 8.3 L Discharge Plan Triage Chief Complaint: Complaint ED Provider: Clayton Schmidt Dx/Rx/DC Orders Clinical Impression: Hematuria, Urinary retention Prescriptions: No Action aspirin 81 MG tablet,chewable 81 mg PO DAILY@0800 atorvastatin 40 MG tablet 40 mg PO QHS cholecalciferol (vitamin D3) 50 MCG capsule 2,000 unit PO DAILY insulin glargine [Lantus U-100 Insulin] 100 unit/mL Solution 32 unit SUBCUT QHS acetaminophen [Tylenol Extra Strength] 500 mg Tablet 1,000 mg PO Q6H PRN (Reason: Pain) docusate sodium 100 mg Capsule 100 mg PO BID tamsulosin 0.4 mg Capsule 0.8 mg PO DAILY@1730 Qty: 0 0RF cephalexin HCl 500 mg Tablet 1,000 mg PO BID ferrous sulfate 325 mg (65 mg iron) Tablet 325 mg PO DAILY sertraline 50 mg Tablet 200 mg PO QHS finasteride 5 mg Tablet 5 mg PO DAILY polyethylene glycol Liquid 30 ml miscellaneous DAILY fondaparinux 7.5 mg/0.6 mL Syringe 7.5 mg SUBCUT QHS metoprolol succinate 25 mg tablet extended release 24 hr 50 mg PO DAILY melatonin 3 mg Tablet 3 mg PO QHS insulin aspart U-100 [Novolog U-100 Insulin aspart] 100 unit/mL Solution 14 unit subcut 1200,1700 insulin aspart U-100 [Novolog U-100 Insulin aspart] 100 unit/mL Solution 12 unit SUBCUT 0800 ondansetron 4 mg tablet,disintegrating 4 mg PO TID PRN (Reason: nausea and vomiting) Qty: 21 0RF pantoprazole 40 mg tablet,delayed release (DR/EC) 40 mg PO DAILY Qty: 30 0RF levofloxacin 750 mg tablet 750 mg PO DAILY 5 Days Qty: 5 0RF trospium 20 mg tablet 20 mg PO BID Rx Instructions: administer on an empty stomach cyanocobalamin (vitamin B-12) 1,000 mcg capsule 1,000 mcg PO DAILY [facility]: [facility] [Primary [facility] Provider] - Disposition Disposition: Acute Care Hospital [facility]charge [facility]: [facility]
[2022-11-16 08:06] LABS: Absolute Lymphocyte Count 2.57 X10^3/uL (0.83-4.51); Absolute Neutrophil Count 9.7 X10^3/uL (2.0-7.7); Basophil# 0.05 X10^3/uL; Basophil% 0.4 % (0-1); Eosinophil# 0.19 X10^3/uL; Eosinophils% 1.4 % (0-5); Hematocrit 27.1 % (40-54); Hemoglobin 8.8 g/dL (13.0-16.5); Lymphocyte # 2.57 X10^3/ul (0.83-4.51); Lymphocyte % 19.1 % (19-41); Mean Corp Hgb Conc 32.5 g/dL (32-36); Mean Corpuscular Hgb 28.2 pg (27.0-32.0); Mean Corpuscular Volume 86.9 fL (80-94); Mean Platelet Vol. 9.2 fl (6.2-12.0); Monocyte# 0.95 X10^3/uL; NRBC Flagged by Analyzer 0 % (0-5); Neutrophil # 9.66 X10^3/uL (2.7-7.7); Neutrophil % 71.6 % (47-70); Platelet Count 364 K/mm3 (150-450); RBC Distribution Width CV 14.8 % (11.6-14.6); RBC Distribution Width SD 46.2 fl (35.1-43.9); Red Blood Count 3.12 M/mm3 (4.6-6.2); White Blood Count 13.5 K/mm3 (4.4-11.0)
[2022-11-16 08:13] LABS: Anion Gap 6 (5-15); BUN 19 mg/dL (7-18); BUN/Creat Ratio 14.1 RATIO (10-20); Calcium,Total 8.3 mg/dL (8.5-10.1); Chloride 106 mmol/L (98-107); Creatinine, Serum 1.35 mg/dL (0.70-1.30); EST Glomerular Filtration Rate 55 mL/min (>60); Est Glom Filt Rate - Afr Amer 66 mL/min (>60); Estimated Creatinine Clearance 48.82 ml/min; Glucose 237 mg/dL (74-106); Potassium 4.3 mmol/L (3.5-5.1); Sodium Level 135 mmol/L (136-145)
--- NOTE | 2022-11-16 09:13 | NURSING ---
CALLED SARAH ZHANG ABOUT TRANSFERRING PATIENT. HAD TO LEAVE MESSAGE ON INTAKE PHONE
--- NOTE | 2022-11-16 10:23 | NURSING ---
CALLED SARAH ZHANG, TALKED TO POLI IN INTAKE. SHE TOOK INFO AND WILL PASS IT ON TO A NURSE. [employer] ARE [employer]
[2022-11-16] MEDS: Morphine 4 MG/ML Syringe IV (10:56)
--- NOTE | 2022-11-16 14:41 | ED.RN ---
Addendum entered by Odette Elkins 11/16/22 15:54: FAX RECEIVED, WILL CALL BACK MAYBE TONIGHT, PROBABLY TOMORROW Original Note: [facility] S[facility]SENT [facility], FORM WAS SIGNED BY PT AND FAXED OVER WITH CHART. WAITING FOR CALL BACK.
--- NOTE | 2022-11-16 16:58 | ED.RN ---
PER DR. ELY VERBAL ORDER, OK TO STOP CBI AT THIS TIME.
--- NOTE | 2022-11-16 17:33 | ED.RN ---
Addendum entered by Odette Elkins 11/16/22 18:25: TALKED TO CORINNE, CANNOT DO A ER TO ER VISIT WE WOULD HAVE [facility], [facility] LEFT MESSAGES WITH [facility]. STILL WAITING ON AN ACCEPTANCE. LUZMARIA WITH TRANSFER LINE SAID SHE IS WORKING ON HIS CASE AND SHE WILL CALL BACK. SPOKE WITH ELVIS ([employer]) SHE SAID TO JUST WAIT IT OUT. Original Note: [facility]ED [facility] LEFT MESSAGE. [facility] NOT ACCEPTING [facility]TS. CALLED [facility] PROCESS TRANSFER WITHOUT A DECLINE FROM [facility]. WAITING FOR [facility] TO EITHER DECLINE, OR GIVE NEXT STEP.
[2022-11-16] MEDS: fentaNYL 100 MCG/2 ML Ampul 25 MCG IV ×2 (17:47→22:22)
--- NOTE | 2022-11-16 19:38 | ED.RN ---
[facility] calls [facility] James. States they will call us back with bed and they will set up transport.
== END 2022-11-16 22:53 | disposition short-term general hospital (02) ==
PROVIDERS: Emergency Provider Emergency Medicine; Visit Provider Emergency Medicine
DX: R31.9 Hematuria, unspecified (principal); I50.9 Heart failure, unspecified; R33.9 Retention of urine, unspecified; Z86.718 Personal history of other venous thrombosis and embolism; Z86.73 Personal history of transient ischemic attack (TIA), and cerebral infarction without residual deficits
CPT/HCPCS: 51702; 80048; 85025; 87635; 96361; 96374; 96375; 99285; J7040; A4216

== ENCOUNTER 2024-04-22 13:24 | Emergency (ER) | payer OTHER, SELFPAY ==
[2024-04-22 13:26] VITALS: BP 88/49; PULSE 67; RESP 16; TEMP 36.6; O2SAT 97
[2024-04-22 14:15] VITALS: BP 102/50; PULSE 76; RESP 18; O2SAT 92
--- NOTE | 2024-04-22 14:23 | EX.ED.DYSGE1 ---
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 Patient has developed a pressure sore on the 1 area, there is no evidence of any infection. Patient states has been having intermittent bleeding however today while at the library there was a significant amount of blood and the patient came in via ambulance. Patient denies any specific pain. 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 Sleep apnea Sleep apnea TIA (transient ischemic attack) Type 2 diabetes mellitus with diabetic polyneuropathy Home Medications ?Medication ?Instructions ?Recorded ?Last Taken ?Type aspirin 81 mg chewable tablet 81 mg PO DAILY@0800 06/23/20 12/04/20 History atorvastatin 40 mg tablet 40 mg PO QHS 06/23/20 12/03/20 History cholecalciferol (vitamin D3) 50 2,000 unit PO DAILY 06/23/20 12/04/20 History mcg (2,000 unit) capsule acetaminophen 500 mg tablet 1,000 mg PO Q6H PRN Pain 11/16/20 12/04/20 History (Tylenol Extra Strength) insulin glargine 100 unit/mL 32 unit subcut QHS DM 11/16/20 12/03/20 History subcutaneous solution (Lantus U-100 Insulin) docusate sodium 100 mg capsule 100 mg PO BID CONSTIPATION 12/04/20 12/04/20 History tamsulosin 0.4 mg capsule 0.8 mg (2 x 0.4 mg) PO DAILY@1730 02/23/21 Unknown Rx #0 caps cephalexin HCl 500 mg tablet 1,000 mg PO BID 08/13/21 Unknown History ferrous sulfate 325 mg (65 mg 325 mg PO DAILY 08/13/21 Unknown History iron) tablet finasteride 5 mg tablet 5 mg PO DAILY 08/13/21 Unknown History fondaparinux 7.5 mg/0.6 mL 7.5 mg subcut QHS 08/13/21 Unknown History subcutaneous solution syringe metoprolol succinate 25 mg 50 mg PO DAILY 08/13/21 Unknown History tablet,extended release 24 hr polyethylene glycol 30 ml miscellaneous DAILY 08/13/21 Unknown History sertraline 50 mg tablet 200 mg PO QHS 08/13/21 Unknown History insulin aspart U-100 100 unit/mL 12 unit subcut 0800 01/20/22 Unknown History subcutaneous solution (Novolog U-100 Insulin aspart) insulin aspart U-100 100 unit/mL 14 unit subcut 1200,1700 01/20/22 Unknown History subcutaneous solution (Novolog U-100 Insulin aspart) melatonin 3 mg tablet 3 mg PO QHS 01/20/22 Unknown History ondansetron 4 mg disintegrating 4 mg PO TID PRN nausea and 08/21/22 Unknown Rx tablet vomiting #21 tabs levofloxacin 750 mg tablet 750 mg PO DAILY 5 days #5 tabs 10/16/22 Unknown Rx pantoprazole 40 mg tablet,delayed 40 mg PO DAILY #30 tabs 10/16/22 Unknown Rx release cyanocobalamin (vitamin B-12) 1,000 mcg PO DAILY 11/11/22 Unknown History 1,000 mcg capsule trospium 20 mg tablet 20 mg PO BID 11/11/22 Unknown History Allergy/AdvReac Type Severity Reaction Status Date / Time No Known Allergies Allergy Verified 04/22/24 13:29 Family History Mother Diabetes Father COPD (chronic obstructive pulmonary disease) Surgical History History of spinal surgery Hx of CABG Social History household members: children Smoking Status: Never smoker alcohol intake: never substance use type: does not use ROS ROS ED ROS Narrative Constitutional: Negative for fever, chills, weight loss, weakness Eyes: Negative for vision loss, vision change, double vision ENT: Negative for any sore throat, ear pain, congestion Cardiovascular: Negative for any chest pain, tightness, palpitations Respiratory: Negative for any cough, sputum production, hemoptysis, dyspnea, dyspnea on exertion, orthopnea Gastrointestinal: Negative for any abdominal pain, nausea, vomiting, diarrhea, constipation, blood in stool, blood in vomit : Negative for any urinary frequency, dysuria, retention, blood in urine Muscle skeletal: Negative for any neck pain, back pain Neurological: Negative for any headache, syncope, dizziness. Positive for bleeding to the right foot stump Skin: Negative for any rashes, itching, abrasions, lacerations Psychiatric: Negative for any depression, anxiety, stress, suicidal ideation, homicidal ideation Hematologic: Negative for any excessive bruising, easy bleeding EXAM Physical Exam Narrative Exam Narrative: Vital signs reviewed. HEET: Head normocephalic atraumatic, TMs clear bilaterally. Posterior pharynx is clear, moist mucous membranes. Nares clear bilaterally. Neck: Supple with no lymphadenopathy or tenderness. No signs of meningismus. Cardiac: Regular rate and rhythm no murmurs gallops or rubs, equal peripheral pulses bilaterally. Respiratory: Lungs clear to auscultation bilaterally. No chest tenderness. Abdomen: Soft, nontender, nondistended. No abdominal bruit or pulsatile masses. No hepatosplenomegaly Extremities: No peripheral edema, no signs of gross trauma or deformity. Patient does have a foot stump to the right lower extremity. All toes been removed several years ago. Patient does have a wound/scab to the distal tip, the 1 area of the wound is continually oozing blood. Neuro: Cranial nerves II through XII intact, no focal neurological deficits. Skin: Clean dry and intact with no rash, purpura, petechiae, vesicles or pustules. Backs/flank: No CVA tenderness, no midline spinal tenderness, no deformity. Psych: Normal mood and affect. No SI, HI or acute psychosis. Const Vital Signs: 04/22/24 13:26 04/22/24 14:15 04/22/24 15:00 Temperature 97.8 F Temperature Source Oral Pulse Rate 67 76 66 Respiratory Rate 16 18 18 Blood Pressure 88/49 L 102/50 L 104/56 L Blood Pressure Mean 62 67 72 Pulse Ox 97 92 92 Oxygen Delivery Method Room Air [facility] Lab Data Labs: Laboratory Results - last 24 hr 04/22/24 04/22/24 14:25 14:34 WBC 13.1 H RBC 3.92 L Hgb 11.6 L Hct 36.1 L MCV 92.1 MCH 29.6 MCHC 32.1 RDW Std Deviation 48.5 H RDW Coeff of Fernando 14.3 Plt Count 222 MPV 9.9 Immature Gran % (Auto) 0.300 Neut % (Auto) 71.8 H Lymph % (Auto) 16.7 L [place] % (Auto) 6.6 Eos % (Auto) 4.0 Baso % (Auto) 0.6 Absolute Neuts (auto) 9.4 H Absolute Lymphs (auto) 2.19 Nucleated RBC % 0 PT 14.9 INR 1.2 Sodium 134 L Potassium 5.2 H Chloride 104 Carbon Dioxide 28.0 Anion Gap 2 L BUN 26 H Creatinine 1.59 H Est GFR (MDRD) Af Amer 55 L Est GFR (MDRD) Non-Af 45 L BUN/Creatinine Ratio 16.4 Glucose 121 H Calcium 8.9 Total Bilirubin 0.50 AST 12 L ALT 13 L Alkaline Phosphatase 60 Total Protein 7.2 Albumin 3.4 Globulin 3.8 Albumin/Globulin Ratio 0.9 POC Glucose 115 H Treatment and Re-Evaluation :: Differential diagnosis includes however is not limited to: Bleeding wound, infection, foreign body, free air, anemia, dehydration, hypoglycemia Patient does have a blood pressure 88/49 however per the patient's daughter, the patient's systolic usually in the 90s. Patient does have bleeding to the right foot stump. There is oozing from the wound/callus. There is no signs or symptoms of infection. Patient received a CBC, CMP. Patient will have the wound cleansed, Surgicel dressing with a pressure dressing will be applied. Patient laboratory values show slight leukocytosis with white blood count 13.1, hemoglobin 7.6, this is improved over the past. Patient's PT is 14.9 with INR 1.2, sodium 134, potassium 5.2 only slightly elevated. Patient glucose 121. Patient's foot wound was rewrapped, did not bleed through. I was able to add an x-ray dressing with Donovan wrap. Patient will be leaving this dressing on until seeing his director of capital giving and can. At this time, patient will stop his Lovenox for 1 day, will follow-up closely with his director of capital giving, if he bleeds through he is instructed to return here to the emergency department. He is happy with the plan of care, I spoke with the patient's daughter who does manage his care. They are happy the plan of care and stable for discharge Discharge Plan Triage Chief Complaint: Wound ED Midlevel Provider: Homer Schneider ED Provider: Romain Mccullough Dx/Rx/DC Orders Clinical Impression: Chronic anticoagulation, History of diabetes mellitus, Skin tear, Bleeding from wound Instructions: ED Dressing Change, ED Post Op Wound Check, Bleeding Prescriptions: No Action aspirin 81 MG tablet,chewable 81 mg PO DAILY@0800 atorvastatin 40 MG tablet 40 mg PO QHS cholecalciferol (vitamin D3) 50 MCG capsule 2,000 unit PO DAILY insulin glargine [Lantus U-100 Insulin] 100 unit/mL Solution 32 unit SUBCUT QHS acetaminophen [Tylenol Extra Strength] 500 mg Tablet 1,000 mg PO Q6H PRN (Reason: Pain) docusate sodium 100 mg Capsule 100 mg PO BID tamsulosin 0.4 mg Capsule 0.8 mg PO DAILY@1730 Qty: 0 0RF cephalexin HCl 500 mg Tablet 1,000 mg PO BID ferrous sulfate 325 mg (65 mg iron) Tablet 325 mg PO DAILY sertraline 50 mg Tablet 200 mg PO QHS finasteride 5 mg Tablet 5 mg PO DAILY polyethylene glycol Liquid 30 ml miscellaneous DAILY fondaparinux 7.5 mg/0.6 mL Syringe 7.5 mg SUBCUT QHS metoprolol succinate 25 mg tablet extended release 24 hr 50 mg PO DAILY melatonin 3 mg Tablet 3 mg PO QHS insulin aspart U-100 [Novolog U-100 Insulin aspart] 100 unit/mL Solution 14 unit subcut 1200,1700 insulin aspart U-100 [Novolog U-100 Insulin aspart] 100 unit/mL Solution 12 unit SUBCUT 0800 ondansetron 4 mg tablet,disintegrating 4 mg PO TID PRN (Reason: nausea and vomiting) Qty: 21 0RF pantoprazole 40 mg tablet,delayed release (DR/EC) 40 mg PO DAILY Qty: 30 0RF levofloxacin 750 mg tablet 750 mg PO DAILY 5 Days Qty: 5 0RF trospium 20 mg tablet 20 mg PO BID Rx Instructions: administer on an empty stomach cyanocobalamin (vitamin B-12) 1,000 mcg capsule 1,000 mcg PO DAILY [facility] [facility] [facility] [Primary Care Provider] - As soon as possible (Follow[facility]up with [facility] director of capital giving as soon as possible.) Activity Restrictions/Additional Instructions: Please follow-up with your director of capital giving, do not change the dressing until you follow-up next week. If you do bleed through this dressing please return to the emerged department. Hold your Lovenox for 24 hours. Print Language: Azeri Disposition Disposition: Home, Self Care
[2024-04-22 14:39] LABS: Absolute Lymphocyte Count 2.19 X10^3/uL (0.83-4.51); Absolute Neutrophil Count 9.4 X10^3/uL (2.0-7.7); Basophil# 0.08 X10^3/uL; Basophil% 0.6 % (0-1); Eosinophil# 0.52 X10^3/uL; Hematocrit 36.1 % (40-54); Hemoglobin 11.6 g/dL (13.0-16.5); Lymphocyte # 2.19 X10^3/ul (0.83-4.51); Lymphocyte % 16.7 % (19-41); Mean Corp Hgb Conc 32.1 g/dL (32-36); Mean Corpuscular Hgb 29.6 pg (27.0-32.0); Mean Corpuscular Volume 92.1 fL (80-94); Mean Platelet Vol. 9.9 fl (6.2-12.0); Monocyte# 0.86 X10^3/uL; Monocyte% 6.6 % (0-10); NRBC Flagged by Analyzer 0 % (0-5); Neutrophil # 9.41 X10^3/uL (2.7-7.7); Neutrophil % 71.8 % (47-70); Platelet Count 222 K/mm3 (150-450); RBC Distribution Width CV 14.3 % (11.6-14.6); RBC Distribution Width SD 48.5 fl (35.1-43.9); Red Blood Count 3.92 M/mm3 (4.6-6.2); White Blood Count 13.1 K/mm3 (4.4-11.0)
[2024-04-22 14:52] LABS: Bedside Glucose 115 mg/dL (74-106)
[2024-04-22 14:55] LABS: ALB/GLOB Ratio 0.9 RATIO (0.9-2.4); AST(SGOT) 12 U/L (15-37); Alanine Aminotransfer ALT/SGPT 13 U/L (16-61); Albumin, Serum 3.4 g/dL (3.2-5.0); Alkaline Phosphatase 60 U/L (45-117); Anion Gap 2 (5-15); BUN 26 mg/dL (7-18); BUN/Creat Ratio 16.4 RATIO (10-20); Calcium,Total 8.9 mg/dL (8.5-10.1); Chloride 104 mmol/L (98-107); Creatinine, Serum 1.59 mg/dL (0.70-1.30); EST Glomerular Filtration Rate 45 mL/min (>60); Est Glom Filt Rate - Afr Amer 55 mL/min (>60); Globulin 3.8 g/dL (2.2-4.2); Glucose 121 mg/dL (74-106); Potassium 5.2 mmol/L (3.5-5.1); Protein, Total 7.2 g/dL (6.4-8.2); Sodium Level 134 mmol/L (136-145)
[2024-04-22 15:00] VITALS: BP 104/56; PULSE 66; RESP 18; O2SAT 92
[2024-04-22 15:09] LABS: International Normalized Ratio 1.2; Prothrombin Time (Protime)PT. 14.9 SECONDS (11.7-14.9)
[2024-04-22 15:36] VITALS: BMI 32.8
[2024-04-22 16:00] VITALS: BP 112/92; PULSE 76; RESP 18; O2SAT 93
[2024-04-22 17:00] VITALS: BP 101/49; O2SAT 94
[2024-04-22 18:00] VITALS: BP 98/52; O2SAT 82
== END 2024-04-22 18:58 | disposition home or self-care (01) ==
PROVIDERS: Nurse Practitioner; Emergency Provider Emergency Medicine; Visit Provider Emergency Medicine
DX: S91.311A Laceration without foreign body, right foot, initial encounter (principal); I11.0 Hypertensive heart disease with heart failure; I50.9 Heart failure, unspecified; E11.40 Type 2 diabetes mellitus with diabetic neuropathy, unspecified; Z79.01 Long term (current) use of anticoagulants; Z86.73 Personal history of transient ischemic attack (TIA), and cerebral infarction without residual deficits; X58.XXXA Exposure to other specified factors, initial encounter
CPT/HCPCS: 80053; 82962; 85025; 85610; 99285